=== PATIENT | male | born 1935 | race Caucasian/White ===

== ENCOUNTER 2016-09-02 11:19 | Outpatient (CLI) | payer MEDICARE, MEDICAID ==
[~2016-09-02] VITALS: Ht 170.2 cm; Wt 107.6 kg
[~2016-09-02 11:19] MED LIST: ALFU10TA11 PO; ASCO500C14 PO; ASPI325T32 PO; ATEN1TAB3 PO; ATOR20TA66 PO; CALC-656 PO; CETI10TA17 PO; CHOL200018 PO; COPP2TAB PO; DEXL60CA5 PO; DILT360T11 PO; GLIM2TAB PO; HYDR-34 PO; LINA5TAB PO; MTF500T PO; NIAC-4 PO; POTA99TA15 PO; VITA1TAB PO; VITA80006 PO; ZINC30CA PO
[2016-09-02 11:32] VITALS: BP 141/70
[2016-09-02] MEDS ORDERED: OMEP1CAP9 PO (12:05)
[2016-09-02] MEDS ORDERED: LEVO1CAP11 PO (12:05)
[2016-09-02] MEDS ORDERED: GINK120C PO (12:05)
[2016-09-02] MEDS ORDERED: GARL200T PO (12:05)
[2016-09-02] MEDS ORDERED: METF750T2 PO (12:05)
[2016-09-02] MEDS ORDERED: GLUC-113 PO (12:05)
[2016-09-02] MEDS ORDERED: VITA400T9 PO (12:05)
[2016-09-02] MEDS ORDERED: MILK200C4 PO (12:05)
[2016-09-02] MEDS ORDERED: HYDR25TA4 PO (12:05)
[2016-09-02] MEDS ORDERED: MAGN400T39 PO (12:05)
[2016-09-02] MEDS ORDERED: LACT1CAP8 PO (12:05)
[2016-09-02] MEDS ORDERED: FLAX100031 PO (12:05)
[2016-09-02] MEDS ORDERED: [UNRECOGNIZED DRUG - CODE] PO (12:05)
[2016-09-02] MEDS ORDERED: CALC-654 PO (12:05)
[2016-09-02] MEDS ORDERED: ASPI-999 PO (12:08)
[2016-09-02] MEDS ORDERED: [UNRECOGNIZED DRUG - OTHER] PO (12:08)
[2016-09-02] MEDS ORDERED: MELA1TAB15 PO (12:08)
[2016-09-02] MEDS ORDERED: RUTI500T PO (12:08)
[2016-09-02] MEDS ORDERED: FERR160T5 PO (12:08)
[2016-09-16] MEDS ORDERED: GLIM2TAB PO (10:11)
[2016-09-16] MEDS ORDERED: ATEN1TAB3 PO (10:11)
[2016-09-16] MEDS ORDERED: LINA5TAB PO (10:11)
[2016-09-16] MEDS ORDERED: ALFU10TA11 PO (10:11)
[2016-09-16] MEDS ORDERED: DILT360C19 PO (10:11)
[2016-09-16] MEDS ORDERED: FERR-74 PO (10:11)
[2016-09-16] MEDS ORDERED: ATOR20TA66 PO (10:11)
[2016-09-17] MEDS ORDERED: CIPR-225 PO (11:17)
== END 2016-09-02 11:55 | disposition home or self-care (01) ==
LOC: PREOP 11:19
PROVIDERS: ATTEND Urology
DX: Z01.818 Encounter for other preprocedural examination (principal); Z11.2 Encounter for screening for other bacterial diseases; N40.0 Benign prostatic hyperplasia without lower urinary tract symptoms
CPT/HCPCS: 87081

== ENCOUNTER 2016-09-04 06:35 | Day surgery (SDC) | payer MEDICARE, MEDICAID ==
[~2016-09-04] VITALS: Ht 170.2 cm; Wt 107.6 kg
[~2016-09-04 06:35] MED LIST changes: +ASPI-999 PO; +CALC-654 PO; +FERR160T5 PO; +FLAX100031 PO; +GARL200T PO; +GINK120C PO; +GLUC-113 PO; +HYDR25TA4 PO; +LACT1CAP8 PO; +LEVO1CAP11 PO; +MAGN400T39 PO; +MELA1TAB15 PO; +METF750T2 PO; +MILK200C4 PO; +OMEP1CAP9 PO; +RUTI500T PO; +VITA400T9 PO; +[UNRECOGNIZED DRUG - CODE] PO; +[UNRECOGNIZED DRUG - OTHER] PO
--- NOTE | 2016-09-04 07:09 | Progress Note-Pre Operative ---
Pre-Operative Progress Note H&P Reviewed The H&P was reviewed, patient examined and no changes noted. 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
[2016-09-04 07:15] VITALS: BP 143/78
[2016-09-04] MEDS ORDERED: cefTRIAXone 1 GM (ROCEPHIN) VIAL ONE (07:47)
[2016-09-04] MEDS ORDERED: NORMAL SALINE (BAXTER MINI) 50 ML IV ONE (07:47)
[2016-09-04] MEDS ORDERED: MIDAZOLAM 10 MG/2 ML (VERSED) VIAL ONE (08:11)
[2016-09-04] MEDS ORDERED: fentaNYL INJECTION 100 MCG/2 ML AMP ONE (08:12)
[2016-09-04] MEDS ORDERED: cefTRIAXone 1 GM/NS 50 ML IVPB IV ONE ×2 (08:15)
[2016-09-04] MEDS: LACTATED RINGERS 1,000 ML IV PRN ×2 (08:23→08:49)
[2016-09-04 08:35] LABS: BASOPHILS % (AUTO) 0 % (0-10); EOSINOPHILS # (AUTO) 0.1 10^3/uL (0.0-0.3); EOSINOPHILS % (AUTO) 1 % (0-10); LYMPHOCYTES # (AUTO) 1.7 X 10^3 (1.0-4.0); LYMPHOCYTES % (AUTO) 19 % (12-44); MEAN CORPUSCULAR HEMOGLOBIN 31 PG (25-34); MEAN CORPUSCULAR HGB CONC 34 G/DL (32-36); MEAN CORPUSCULAR VOLUME 92 FL (80-99); MEAN PLATELET VOLUME 10.8 FL (7.4-10.4); MONOCYTES # (AUTO) 0.7 X 10^3 (0.0-1.0); MONOCYTES % (AUTO) 8 % (0-12); NEUTROPHILS # (AUTO) 6.3 X 10^3 (1.8-7.8); NEUTROPHILS % (AUTO) 72 % (42-75); PLATELET COUNT 218 10^3/uL (130-400); RED BLOOD COUNT 4.38 10^6/uL (4.35-5.85); RED CELL DISTRIBUTION WIDTH 12.6 % (10.0-14.5); WHITE BLOOD COUNT 8.8 10^3/uL (4.3-11.0)
[2016-09-04] MEDS ORDERED: HYDROmorphone (DILAUDID) 2 MG/ML VIAL ONE (09:18)
[2016-09-04] MEDS ORDERED: morphine INJ 10 MG/ML 1ML (SYR OR VIAL) ONE (09:18)
[2016-09-04] MEDS ORDERED: ONDANSETRON 4 MG/2 ML (SDV) Z0FRAN ONE (09:18)
--- NOTE | 2016-09-04 10:06 | Progress Note-Post Operative ---
Post-Operative Progess Note Pre-Operative Diagnosis BPH with prostatism and retention Post-Operative Diagnosis same Post-Op Procedure Note Date of Procedure: Sep 04, 2016 Name of Procedure: TURP Anesthesia Type spinal Estimated blood loss (mL): 100cc Specimen(s) collected prostate chips MARTHA CORDERO MD Sep 04, 2016 10:05 am
[2016-09-04] MEDS ORDERED: BELLADONNA ALK/OPIUM (B & O) 30 MG SUPP PR PRN (10:15)
[2016-09-04] MEDS ORDERED: MILK OF MAGNESIA 400 MG/5 ML 30 ML UDC PO PRN (10:15)
[2016-09-04 11:00] VITALS: BP 100/67
[2016-09-04] MEDS ORDERED: proPOfol 200 MG/20 ML (DIPRIVAN) VIAL IV ONE (11:25)
[2016-09-04] MEDS: LACTATED RINGERS 1,000 ML IV SCH ×4 (12:38→20:35)
[2016-09-04 13:00] VITALS: BP 134/79
[2016-09-04] MEDS ORDERED: diphenhydrAMINE 50 MG/ML INJ (BENADRYL) IVP PRN (14:15)
[2016-09-04] MEDS: HYDROcodone/APAP 10 MG/325 MG (LORTAB) TAB PO PRN (16:06)
[2016-09-04 16:40] VITALS: BP 167/79
[2016-09-04] MEDS: GLIMEPIRIDE 2 MG (AMARYL) TAB PO SCH (17:46)
[2016-09-04] MEDS: metFORMIN XR 500 MG (GLUCOPHAGE XR) TAB PO SCH (17:46)
[2016-09-04 20:00] VITALS: BP 140/65
[2016-09-04] MEDS: DOCUSATE SODIUM 100 MG (COLACE) CAP PO SCH (20:35)
[2016-09-04] MEDS ORDERED: NON-FORMULARY MEDICATION 1 EA EA (Metformin HCl (Metformin HCl ER) 750 MG) PO SCH (21:00)
[2016-09-04] MEDS ORDERED: NON-FORMULARY MEDICATION 1 EA EA (Potassium Gluconate (Potassium) 99 MG) PO SCH (21:00)
[2016-09-04] MEDS ORDERED: ATORVASTATIN 20 MG (LIPITOR) TABLET PO SCH (21:00)
[2016-09-05] VITALS: BP 161/89
[2016-09-05] MEDS: HYDROcodone/APAP 10 MG/325 MG (LORTAB) TAB PO PRN (00:53)
[2016-09-05 04:00] VITALS: BP 172/80
[2016-09-05] MEDS: LACTATED RINGERS 1,000 ML IV SCH ×2 (04:28→10:06)
[2016-09-05 05:00] VITALS: BP 171/84
[2016-09-05] MEDS: GLIMEPIRIDE 2 MG (AMARYL) TAB PO SCH ×2 (06:27→17:02)
[2016-09-05] MEDS: metFORMIN XR 500 MG (GLUCOPHAGE XR) TAB PO SCH ×2 (06:28→17:04)
[2016-09-05] MEDS ORDERED: sitaGLIPtin 50 MG (JANUVIA) TAB PO SCH (07:00)
[2016-09-05] MEDS ORDERED: PANTOPRAZOLE 20 MG TABLET (PROTONIX) PO SCH (07:00)
--- NOTE | 2016-09-05 07:29 | OPERATIVE REPORT ---
PROCEDURE PHYSICIAN: MARTHA CORDERO DATE OF PROCEDURE: 09/04/2016 PREOPERATIVE DIAGNOSIS: BPH with prostatism and retention. POSTOPERATIVE DIAGNOSIS: BPH with prostatism and retention. OPERATION: Transurethral resection of the prostate. SURGEON: Dr. Cordero. ANESTHESIA: Spinal. COMPLICATIONS: None. PROCEDURE: Under satisfactory spinal anesthesia, the patient in lithotomy position, the genitalia were prepped and draped in the usual sterile fashion. The urethra was dilated to [place] sound to number 30 Albanian easily. A 27-Albanian Shipey resectoscope was introduced in the bladder. Resection started at the roof from 11 to 1 o'clock and then carried down both lateral lobes and finally the apical and the floor of the prostate. Resection was very adequate and hemostasis was very satisfactory. The prostatic calculi and capsule was visualized at many points. The prostatic chips were evacuated and cystoscopy confirmed intact ureteric orifices, VERU and sphincter with good efflux. The resectoscope was removed and a 22-Albanian, three-way 30 mL balloon catheter was inflated in the bladder. The balloon inflated to 40 mL, connected to continuous bladder irrigation and on traction, the return of which was tinged. Estimated blood loss 100 mL, none of which was replaced. The patient tolerated the procedure and anesthesia well and was sent to recovery room in stable condition. Job ID: [id number] Dictated Date: 09/04/2016 10:24:16 White Metal Corrosion Proofer Date: 09/05/2016 07:23:17 / olga
[2016-09-05] MEDS: DOCUSATE SODIUM 100 MG (COLACE) CAP PO SCH (07:50)
[2016-09-05 08:00] VITALS: BP 163/89
[2016-09-05] MEDS ORDERED: OMEPRAZOLE PO SCH (09:00)
[2016-09-05] MEDS ORDERED: HYDROCHLOROTHIAZIDE 25 MG (HCTZ) TAB PO SCH (09:00)
[2016-09-05] MEDS ORDERED: SODIUM BICARBONATE PO SCH (09:00)
[2016-09-05] MEDS ORDERED: [UNRECOGNIZED DRUG - OTHER] PO SCH (09:00)
[2016-09-05] MEDS ORDERED: LINAGLIPTIN 5 MG PO SCH (09:00)
[2016-09-05] MEDS ORDERED: LEVOFLOXACIN 500 MG/100 ML IV 100 ML IV NR (10:15)
--- NOTE | 2016-09-05 11:51 | Progress Note-Urology ---
Progress Note-Urology Progress Notes/Assess & Plan Progress/Assessment & Plan Doing well, VSS, no complaints, urine clear and yellow, plan per orders Final Diagnosis BPH with prostatism and retention, post TURP MARTHA CORDERO MD Sep 05, 2016 11:51 am
[2016-09-05 12:30] VITALS: BP 173/89
--- NOTE | 2016-09-05 14:19 | Anesthesia-Regional Post-Op ---
Regional Patient Condition Mental Status: Alert, Oriented x3 Circulation: Same as Pre-Op Headache: Absent Sensation: Full Recovery Motor Block: Absent Post Op Complications Complications None Follow Up Care/Instructions Patient Instructions None needed. Anesthesia/Patient Condition Patient is doing well, no complaints, stable vital signs, no apparent adverse anesthesia problems. No complications reported per nursing. RANCHO CULLEN CRNA Sep 05, 2016 14:19
[2016-09-05 16:13] VITALS: BP 167/87
[2016-09-05] MEDS ORDERED: LEVO500T2 PO (17:13)
[2016-09-16] MEDS ORDERED: ALFU10TA11 PO (10:11)
[2016-09-16] MEDS ORDERED: FERR-74 PO (10:11)
[2016-09-16] MEDS ORDERED: GLIM2TAB PO (10:11)
[2016-09-16] MEDS ORDERED: ATEN1TAB3 PO (10:11)
[2016-09-16] MEDS ORDERED: ATOR20TA66 PO (10:11)
[2016-09-16] MEDS ORDERED: DILT360C19 PO (10:11)
[2016-09-16] MEDS ORDERED: LINA5TAB PO (10:11)
[2016-09-17] MEDS ORDERED: CIPR-225 PO (11:17)
== END 2016-09-05 18:30 | disposition home or self-care (01) ==
LOC: SDC 06:35 → 4TH 12:57 → SDC 09-05 18:30
PROVIDERS: ATTEND Urology
DX: N40.1 Benign prostatic hyperplasia with lower urinary tract symptoms (principal); R33.8 Other retention of urine; E11.9 Type 2 diabetes mellitus without complications
CPT/HCPCS: 36415; 82962; 85025; 86850; 86900; 86901; 94664

== ENCOUNTER 2016-12-06 10:06 | Outpatient (CLI) | payer MEDICARE, OTHER ==
[~2016-12-06] VITALS: Ht 172.7 cm; Wt 107.6 kg
[~2016-12-06 10:06] MED LIST changes: +CIPR-225 PO; +DILT360C19 PO; +FERR-74 PO; +LEVO500T2 PO
[2016-12-06] MEDS ORDERED: OMEP1CAP9 PO (10:22)
[2016-12-06] MEDS ORDERED: HYDR25TA4 PO (10:22)
[2016-12-06] MEDS ORDERED: LEVO1CAP11 PO (10:22)
[2016-12-06 10:24] VITALS: BP 142/81
== END 2016-12-06 11:36 | disposition home or self-care (01) ==
LOC: PREOP 10:06
PROVIDERS: ATTEND Urology
DX: Z01.818 Encounter for other preprocedural examination (principal); Z11.2 Encounter for screening for other bacterial diseases; N32.0 Bladder-neck obstruction
CPT/HCPCS: 87081

== ENCOUNTER 2016-12-11 06:25 | Day surgery (SDC) | payer MEDICARE, OTHER ==
[~2016-12-11] VITALS: Ht 172.7 cm; Wt 107.6 kg
[2016-12-11 07:00] VITALS: BP 150/105
[2016-12-11] MEDS ORDERED: cefTRIAXone 1 GM (ROCEPHIN) VIAL ONE (07:05)
[2016-12-11] MEDS ORDERED: NS (IVPB) 50 ML ONE (07:05)
--- NOTE | 2016-12-11 07:09 | Progress Note-Pre Operative ---
Pre-Operative Progress Note H&P Reviewed The H&P was reviewed, patient examined and no changes noted. Date H&P Reviewed: Dec 11, 2016 Time H&P Reviewed: 07:08 Pre-Operative Diagnosis: SEVERE BNC MARTHA CORDERO MD Dec 11, 2016 7:09 am
--- NOTE | 2016-12-11 07:09 | Progress Note-Post Operative ---
Post-Operative Progess Note Surgeon (s)/Supervisor Engraving (s) Surgeon MARTHA CORDERO MD Supervisor Engraving: N/A Pre-Operative Diagnosis SEVERE BNC Post-Operative Diagnosis SAME WITH SCAR TISSUE OF PROSTATE FOSSA AND APICES Post-Op Procedure Note Date of Procedure: Dec 11, 2016 Name of Procedure Performed: CYSTO, TUR BNC AND PROSTATIC SCAR TISSUE Description of the Procedure: PER DICTATION Findings of the Procedure PER DICTATION Anesthesia Type GENERAL Estimated blood loss (mL): NONE Specimen(s) collected/removed PROSTATE, BNC, SCARRED PROSTATIC TISSUE MARTHA CORDERO MD Dec 11, 2016 7:09 am
--- NOTE | 2016-12-11 07:11 | Discharge Inst-Urology ---
Discharge Inst-Urology Discharge Medications New, Converted, or Re-newed RX: RX on Chart Patient Instructions/Follow Up Plan Once done with CBI, plug inlet of sanches and discharge with sanches and leg bag day time and large bag night time with instructions Office Friday 9am to DC sanches and 2 weeks later to see me Increase oral fluids for 48 hours and then as needed. Diet and Activity as tolerated. If questions or concerns contact your physician Or seek help at emergency department. MARTHA CORDERO MD Dec 11, 2016 7:11 am
[2016-12-11] MEDS ORDERED: CATHETER FLUSH 10 ML SYR IV PRN (07:45)
[2016-12-11] MEDS ORDERED: cefTRIAXone 1 GM/NS 50 ML IVPB IV ONE ×2 (07:45)
[2016-12-11] MEDS: LACTATED RINGERS 1,000 ML IV PRN ×2 (08:16→09:26)
[2016-12-11] MEDS ORDERED: ATEN25TA PO (08:23)
[2016-12-11] MEDS ORDERED: ASPI-586 PO (08:28)
[2016-12-11] MEDS ORDERED: LACTATED RINGERS 1,000 ML IV ONE ×2 (08:29→09:44)
[2016-12-11] MEDS ORDERED: SEVOFLURANE (ULTANE) 15 ML INHAL SOLN ONE ×2 (08:29→09:54)
[2016-12-11] MEDS ORDERED: fentaNYL INJECTION 100 MCG/2 ML AMP ONE (08:29)
[2016-12-11] MEDS ORDERED: LIDOCAINE PF 2% 10 ML (XYLOCAINE) AMP ONE (08:29)
[2016-12-11] MEDS ORDERED: ONDANSETRON 4 MG/2 ML (SDV) Z0FRAN ONE (08:29)
[2016-12-11] MEDS ORDERED: ROCURONIUM 50 MG/5 ML (ZEMURON) VIAL IV ONE (08:29)
[2016-12-11] MEDS ORDERED: proPOfol 200 MG/20 ML (DIPRIVAN) VIAL IV ONE (08:29)
[2016-12-11] MEDS ORDERED: NEOSTIGMINE (BLOXIVERZ ) 1 MG/1ML 10 ML VIAL ONE (09:47)
[2016-12-11] MEDS ORDERED: GLYCOPYRROLATE 0.2 MG/ML (ROBINUL) 2 ML VIAL ONE (09:47)
[2016-12-11] MEDS ORDERED: ONDANSETRON 4 MG/2 ML (SDV) Z0FRAN IVP PRN (10:15)
[2016-12-11] MEDS ORDERED: fentaNYL INJECTION 100 MCG/2 ML AMP IVP PRN (10:15)
[2016-12-11] MEDS ORDERED: morphine INJ 10 MG/ML 1ML (SYR OR VIAL) ONE (10:25)
[2016-12-11] MEDS: morphine INJ 10 MG/ML 1ML (SYR OR VIAL) IVP PRN ×3 (10:30→10:40)
[2016-12-11] MEDS ORDERED: CIPR-225 PO (10:33)
[2016-12-11] MEDS ORDERED: HYDR-3874 PO (10:33)
[2016-12-11] MEDS ORDERED: PHEN-640 PO (10:33)
[2016-12-11 11:10] VITALS: BP 168/81
[2016-12-11 11:40] VITALS: BP 168/95
[2016-12-11 12:10] VITALS: BP 167/84
--- NOTE | 2016-12-12 14:48 | OPERATIVE REPORT ---
DATE OF SERVICE: 12/11/2016 PREOPERATIVE DIAGNOSES: Submeatal stricture and bladder neck contracture. POSTOPERATIVE DIAGNOSES: 1. Submeatal stricture and bladder neck contracture. 2. Extensive scarring of the prostatic floor and apical tissue with obstruction. OPERATIONS PERFORMED: 1. Cystoscopy. 2. Transurethral resection of bladder neck contracture, prostate and prostatic scare tissue of apical and floor tissue. SURGEON: Feroz Cordero MD. ANESTHESIA: General. COMPLICATIONS: None. PROCEDURE: Under satisfactory general anesthesia with the patient in lithotomy position the genitalia was prepped and draped in the usual sterile fashion. A 23-Palauan cystoscope was introduced under vision. Again felt the sub___ stricture which responded to the scope. Each urethra was normal with no scar. The prostate again revealed the prostatic tissue, apical and floor, scarred down and connected causing obstruction. Up on top bladder neck contractures. I removed the cystoscope and inserted the resectoscope, 25 Palauan. I went ahead and resected the bladder neck contracture, the scar, prostatic and apical tissues and some more of the prostate tissue to completely open the fossa and the bladder neck. These were was cauterized and hemostasis was complete. Cystoscopy confirmed intact ureteric orifices, veru and sphincter with good reflex. The resectoscope was removed and a 20-Palauan 3-way 30 cc balloon catheter was inserted into the bladder, connected to continuous bladder irrigation the return of which was clear. The balloon was inflated to 20 cc. ESTIMATED BLOOD LOSS: Negligible none of which was replaced. The patient was tolerated the procedure and anesthesia well. He was sent to the recovery room in stable condition. Job ID: [id number] DocumentID: [id number] Dictated Date: 12/11/2016 10:13:56 Wet Crown Blocking Operator Date: 12/12/2016 00:04:08 Dictated By: FEROZ CORDERO MD [facility]
== END 2016-12-11 13:10 | disposition home or self-care (01) ==
LOC: SDC 06:25
PROVIDERS: ATTEND Urology
DX: N32.0 Bladder-neck obstruction (principal); E11.9 Type 2 diabetes mellitus without complications
CPT/HCPCS: 82962; 88305; 88312

== ENCOUNTER → 2018-07-22 | Outpatient (CLI) | payer MEDICARE, OTHER ==
[~2018-07-22] MED LIST changes: +ASPI-586 PO; +ATEN25TA PO; +BETA10003 PO; -FERR-74 PO; +FERR325T18 PO; +HYDR-3870 PO; +PHEN-640 PO; +RT-ALBUTEROL SULF 2.5 MG/3 ML PRE-MIX VIAL INH ONE; +RT-ALBUTEROL SULF 2.5 MG/3 ML PRE-MIX VIAL ONE; -[UNRECOGNIZED DRUG - CODE] PO
--- NOTE | 2018-07-22 12:50 | Diagnostic Imaging Report ---
PROCEDURE: CT chest without contrast. TECHNIQUE: Multiple contiguous axial images were obtained through the chest without the use of intravenous contrast. INDICATION: Wheezing. COMPARISON: No prior studies are available for comparison. FINDINGS: No axillary lymphadenopathy is seen. Hilar and mediastinal evaluation is limited without intravenous contrast. There is a mildly prominent lymph node in the paratracheal location measuring 2.4 x 1.1 cm, indeterminate. There are calcified lymph nodes in the subcarinal region as well as thor bilaterally, consistent with prior granulomatous exposure. Coronary arterial calcifications are present. No pericardial or pleural fluid is seen. Central airways are patent. No parenchymal infiltrate, nodule, or mass is detected. Upper abdomen is unremarkable. IMPRESSION: Findings consistent with prior granulomatous exposure. Study is otherwise unremarkable. Dictated by: Dictated on workstation # [id number]
== END ==
LOC: RAD 11:25
PROVIDERS: ATTEND Nurse Practitioner Family
DX: F39 Unspecified mood [affective] disorder (principal); E66.9 Obesity, unspecified; R06.2 Wheezing; R06.83 Snoring; Z78.9 Other specified health status; Z87.891 Personal history of nicotine dependence
CPT/HCPCS: 71250; 94060; 94726; 94729

== ENCOUNTER → 2019-05-18 | Outpatient (CLI) | payer MEDICARE, OTHER ==
[~2019-05-18] MED LIST changes: -RT-ALBUTEROL SULF 2.5 MG/3 ML PRE-MIX VIAL INH ONE; -RT-ALBUTEROL SULF 2.5 MG/3 ML PRE-MIX VIAL ONE
--- NOTE | 2019-05-18 16:56 | Diagnostic Imaging Report ---
EXAMINATION: Right hip at 02:46 p.m. INDICATION: Hip pain. FINDINGS: AP and lateral views were obtained. There are no prior studies available for comparison. There is no fracture, dislocation, or acute bony abnormality evident. There is moderate degenerative disease involving the hip joint and the right sacroiliac joint. There is also a smooth small 7 mm calcific density adjacent to the superior margin of the greater trochanter of the right femur. This may be a sequela of prior trauma. The soft tissues are otherwise unremarkable. IMPRESSION: There is no evidence for an acute bony abnormality. Dictated by: Dictated on workstation # [id number]
== END ==
LOC: RAD 14:26
PROVIDERS: ATTEND Family Medicine
DX: M25.551 Pain in right hip (principal)
CPT/HCPCS: 73502

== ENCOUNTER → 2019-06-07 | Outpatient (CLI) | payer MEDICARE, OTHER ==
--- NOTE | 2019-06-07 15:44 | Diagnostic Imaging Report ---
PROCEDURE: MRI lumbar spine. TECHNIQUE: Multiplanar, multisequence MRI of the lumbar spine was performed without contrast. INDICATION: Low back pain and right hip and leg pain. Fall two years ago. COMPARISON: None. FINDINGS: There is compression deformity of the L1 vertebral body with approximately 50% height loss and linear hyperintense signal suggestive of an acute fracture. There is minimal retropulsion into the spinal canal measuring 3 mm. There is mild multilevel disc height loss and vertebral body height loss. The conus terminates in appropriate position. Small simple-appearing cysts are seen at the superior right kidney and the inferior left kidney. The soft tissues about the lumbar spine are otherwise unremarkable. T11-T12: No spinal canal or foraminal stenosis. T12-L1: Mild diffuse disc bulge and facet arthropathy. No spinal canal stenosis. No foraminal stenosis. L1-L2: Diffuse disc bulge and mild facet arthropathy. No spinal canal stenosis. Zlus-xh-hbbxghaf bilateral foraminal stenosis. L2-L3: Diffuse disc bulge and facet arthropathy. No spinal canal stenosis. Mild bilateral foraminal narrowing. L3-L4: Diffuse disc bulge and facet arthropathy with ligamentous infolding. Moderate spinal canal stenosis with effacement of the lateral recesses. Moderate bilateral foraminal stenosis. L4-L5: Diffuse disc bulge, facet arthropathy, and ligamentous infolding. Effacement of the lateral recesses. 5 mm synovial cyst at the left facet posteriorly. Severe right and tqnhbuzw-xw-nrzaoi left foraminal stenosis. L5-S1: Diffuse disc bulge and facet arthropathy. No spinal canal stenosis. Severe right and moderate left foraminal stenosis. The S1 vertebral body appears to have a butterfly configuration, split vertically. There is increased fat in the sacral canal, suggestive of epidural lipomatosis. IMPRESSION: 1. Acute compression fracture of the L1 vertebral body with 50% height loss and mild retropulsion. 2. Multilevel degenerative changes throughout the lumbar spine as described above. This includes spinal canal stenosis at L3-L4 and L4-L5 as well as multilevel foraminal stenosis. 3. 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 4. Increased fat in the sacral spinal canal, may represent epidural lipomatosis. Dictated by: Dictated on workstation # [id number]
--- NOTE | 2019-06-07 16:49 | Diagnostic Imaging Report ---
PROCEDURE: MRI right lower extremity without contrast. TECHNIQUE: Multiplanar, multisequence non contrast-enhanced MRI of the right lower extremity was accomplished. INDICATION: Right hip pain. FINDINGS: Femoral heads are in normal articulation with the acetabuli bilaterally. Marrow signal is normal throughout the acetabuli as well as the pubic rami, femoral heads and neck and trochanters. There is loss of articulating joint space along the femoral head and acetabulum on the right. There is subcortical cystic change. There is cystic change along the superolateral labrum as well suggesting probable chronic labral tear. There are mild hypertrophic bony changes. No evidence of osteonecrosis. No cortical bony fractures are demonstrated. The SI joints appear symmetrical without significant edema. No pelvic masses are demonstrated. There is noted some edema about the ischial tuberosity on the right. IMPRESSION: 1. Rather advanced degenerative changes noted at the right hip. Moderate degenerative change in the left. 2. No evidence of fractures or osteonecrosis. 3. Findings consistent with some tendinopathy along the hamstring attachment to the ischial tuberosity on the right. Dictated by: Dictated on workstation # [id number]
== END ==
LOC: RAD 14:43
PROVIDERS: ATTEND Family Medicine
DX: M16.0 Bilateral primary osteoarthritis of hip (principal); M47.816 Spondylosis without myelopathy or radiculopathy, lumbar region; M48.061 Spinal stenosis, lumbar region without neurogenic claudication; M51.27 Other intervertebral disc displacement, lumbosacral region; M48.56XA Collapsed vertebra, not elsewhere classified, lumbar region, initial encounter for fracture
CPT/HCPCS: 72148

== ENCOUNTER → 2020-01-26 | Outpatient (CLI) | payer MEDICARE, OTHER ==
[~2020-01-26] VITALS: Ht 173 cm; Wt 103.0 kg
[~2020-01-26] MED LIST changes: +ALFU10TA12 PO; +GLIM2TAB4 PO; -METF750T2 PO; +METF750T45 PO; +NITROGLYCERIN 0.4 MG SL TABS BTL 25'S SL ONE; +REGADENOSON 0.4 MG/5 ML SYR (LEXISCAN) IV ONE
[2020-01-26] MEDS: CATHETER FLUSH 10 ML SYR IV PRN ×2 (11:27→12:00)
[2020-01-26 12:03] VITALS: BP 162/105
--- NOTE | 2020-01-26 16:51 | Cardiology Stress Test Report ---
Stress Test Report Date of Procedure/Referring: Date of Procedure: Jan 26, 2020 PCP Windy Mayberry MD Admitting Physician Karo Guerrero MD Indications: Chest pain Baseline Heart Rate: 80 Baseline Blood Pressure: Blood Pressure Systolic: 162 Blood Pressure Diastolic: 105 Baseline EKG: Baseline EKG: Normal sinus rhythm Summary: Patient received 0.4 mg Lexiscan for stress test, ECG, heart rate and blood pressure were monitored continuously. Resting and stress dose of radio tracer were injected, imaging was acquired and reviewed in short axis, horizontal long axis and vertical long axis views. Review of the images showed reversible ischemia involving the whole inferior wall, anteroapex, true apex. TID 1 SSS 15 SDS 9 EF 62% Conclusion: 1. Patient tolerated Lexiscan well 2. Reversible ischemia involving the whole inferior wall inferoapical and true apex 3. Normal left ventricular size and contractility, EF 62 percent WINDY MAYBERRY MD Jan 26, 2020 16:51
== END ==
LOC: CARD 10:11
PROVIDERS: ATTEND Internal Medicine Cardiovascular Disease
DX: I34.0 Nonrheumatic mitral (valve) insufficiency (principal); I11.9 Hypertensive heart disease without heart failure; E78.2 Mixed hyperlipidemia; E11.9 Type 2 diabetes mellitus without complications
CPT/HCPCS: 78452; 93017; 93306

== ENCOUNTER → 2020-02-07 | Outpatient (CLI) | payer MEDICARE, OTHER ==
[~2020-02-07] MED LIST changes: +CLOP75TA69 PO; +NF-METANX PO; -NITROGLYCERIN 0.4 MG SL TABS BTL 25'S SL ONE; -REGADENOSON 0.4 MG/5 ML SYR (LEXISCAN) IV ONE; +SITA100T12 PO
== END ==
LOC: LABNPT 06:45
PROVIDERS: ATTEND Internal Medicine Cardiovascular Disease
DX: Z01.818 Encounter for other preprocedural examination (principal); Z11.59 Encounter for screening for other viral diseases
CPT/HCPCS: 87635

== ENCOUNTER 2020-02-09 06:49 | Day surgery (SDC) | payer MEDICARE, OTHER ==
[2020-02-09] VITALS (11 sets, daily range): BP systolic 130–183; BP diastolic 75–89
[~2020-02-09] VITALS: Ht 173 cm; Wt 98.0 kg
[~2020-02-09 06:49] MED LIST changes: -CLOP75TA69 PO; -NF-METANX PO; -SITA100T12 PO
--- OUTSIDE RECORDS SUMMARY | 2020-02-09 06:57 | XMS REPORT | CCD ---
Author Author Gunnar Luther Organization Karo Guerrero MD, [facility] Address [address] [place] [address] Phone Care Team Providers Care Private Banker Name Role Phone PP Unavailable CCM Unavailable Summary Purpose Interface Exchange Insurance Providers Payer name Policy type / Coverage type Covered alliance party ID Effective Begin Date Effective End Date WPS Medicare Part B Medicare Part B [id number] Unknown Aet[employer] Medicare Part B AH [id number] Unknown Cigna Medicare Part B 80 [id number] Unknown Family history Sister Diagnosis Age At Onset Breast cancer Unknown Mother Diagnosis Age At Onset Thyroid Unknown Dementia Unknown Asthma Unknown Arthritis Unknown Father Diagnosis Age At Onset bone cancer Unknown Arthritis Unknown Cancer Unknown Son Diagnosis Age At Onset Thyroid Unknown Brother Diagnosis Age At Onset Prostate Cancer Unknown Cancer Unknown Social History Social History Element Codes Description Effective Dates Marital status Unknown W idowed 05/20/2017 Employment Unknown 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 05/20/[address]: 811657629 Never smoker 05/20/[address]: 466811159 Never drinks alcohol 05/20/2017 Allergies, Adverse Reactions, Alerts Substance Reaction Codes Entered Date Inactivated Date Status Penicillin Unknown 05/20/2017 No In active Date Active PENICILLINS Unknown 05/20/2017 No In active Date Active Past Medical History Illness Codes Condition Status Onset Date Resolved Date Essential (primary) hypertension ICD-9: 401.1 ICD-10: I10 Active 05/20/2017 Unknown Type 2 diabetes stevo itus with hyperglycemia ICD-9: 250.02 ICD-10: E11.65 Active 05/20/2017 Unknown Bitten or stung by n onvenomous insect and other nonvenomous arthropods, initial encounter ICD-9: 919.4 ICD-10: W57.XXXA Active 04/03/2018 Unknown Cellulitis of right lower limb ICD-9: 682.6 ICD-10: L03.115 Active 01/25/2019 Unknown Mixed hyperlipidemia ICD-9: 272.2 ICD-10: E78.2 Active 06/10/2017 Unknown Other acute sinusitis ICD-9: 461.8 ICD-10: J01.80 Active 10/15/2018 Unknown Other allergic rhinitis ICD-9: 477.8 ICD-10: J30.89 Active 04/27/2018 Unknown Encounter for immuni zation ICD-9: V04.81 ICD-10: Z23 Active 06/09/2017 Unknown Anemia, unspecified ICD- 9: 285.9 ICD-10: D64.9 Active 05/14/2018 Unknown Diplopia ICD-9: 368.2 ICD-10: H53.2 Active 05/14/2018 Unknown Benign paroxysmal ve rtigo, bilateral ICD-9: 386.11 ICD-10: H81.13 Active 04/27/2018 Unknown Cellulitis of right upper limb ICD-9: 682.3 ICD-10: L03.113 Active 04/03/2018 Unknown Other fatigue ICD-9: 780.79 ICD-10: R53.83 Active 04/03/2018 Unknown Other malaise ICD-9: 780.79 ICD-10: R53.81 Active 04/03/2018 Unknown Encounter for genera l adult medical examination with abnormal findings ICD-9: V70.0 ICD-10: Z00.01 Active 01/21/2018 Unknown Actinic keratosis ICD-9: 702.0 ICD-10: L57.0 Active 08/27/2017 Unknown Problems Condition Codes Effectiv e Dates Condition Status Essential (primary) hypertension ICD-9: 401.1 ICD-10: I10 05/20/2017 Active Type 2 diabetes stevo itus with hyperglycemia ICD-9: 250.02 ICD-10: E11.65 05/20/2017 Active Bitten or stung by n onvenomous insect and other nonvenomous arthropods, initial encounter ICD-9: 919.4 ICD-10: W57.XXXA 04/03/2018 Active Cellulitis of right lower limb ICD-9: 682.6 ICD-10: L03.115 01/25/2019 Active Mixed hyperlipidemia ICD-9: 272.2 ICD-10: E78.2 06/10/2017 Active Other acute sinusitis ICD-9: 461.8 ICD-10: J01.80 10/15/2018 Active Other allergic rhinitis ICD-9: 477.8 ICD-10: J30.89 04/27/2018 Active Encounter for immuni zation ICD-9: V04.81 ICD-10: Z23 06/09/2017 Active Anemia, unspecified ICD- 9: 285.9 ICD-10: D64.9 05/14/2018 Active Diplopia ICD-9: 368.2 ICD-10: H53.2 05/14/2018 Active Benign paroxysmal ve rtigo, bilateral ICD-9: 386.11 ICD-10: H81.13 04/27/2018 Active Cellulitis of right upper limb ICD-9: 682.3 ICD-10: L03.113 04/03/2018 Active Other fatigue ICD-9: 780.79 ICD-10: R53.83 04/03/2018 Active Other malaise ICD-9: 780.79 ICD-10: R53.81 04/03/2018 Active Encounter for genera l adult medical examination with abnormal findings ICD-9: V70.0 ICD-10: Z00.01 01/21/2018 Active Actinic keratosis ICD-9: 702.0 ICD-10: L57.0 08/27/2017 Active Medications Medication Codes Instruc tions Start Date Stop Date Sta s Fill Instructions mupirocin 2 % topica l ointment RxNorm: 103019 1 Application TOP BID 02/19/2019 No Stop Date Active doxycycline hyclate 100 mg capsule RxNorm: 5478913 1 Capsule(s) PO BID 02/19/2019 03/04/2019 Ac tive metformin ER 750 mg tablet,extended release 24 hr RxNorm: 767296 2 TABLET(S) PO DAILY 02/16/2019 08/14/2019 Ac tive doxycycline hyclate 100 mg capsule RxNorm: 7451019 1 Capsule(s) PO BID 02/04/2019 02/07/2019 In active extending out to 14 days doxycycline hyclate 100 mg capsule RxNorm: 2821453 1 Capsule(s) PO BID 01/25/2019 02/03/2019 In active glimepiride 2 mg tablet RxNorm: 093088 TAKE 1 TABLET BY MOUTH TWICE DAILY FOR D IABETES 01/07/2019 01/01/2020 Active diltiazem CD 360 mg capsule,extended release 24 hr RxNorm: 643482 1 CAPSULE(S) PO QHS 12/29/2018 12/23/2019 Ac tive atenolol 50 mg-chlor thalidone 25 mg tablet RxNorm: 888404 1 TABLET(S) PO DAILY 12/17/2018 12/11/2019 Ac tive PLEASE SEND REFILL REQUESTS ELECTRONICAL LY metformin ER 750 mg tablet,extended release 24 hr RxNorm: 883081 2 TABLET(S) PO DAILY 12/17/2018 06/14/2019 Ac tive metformin ER 750 mg tablet,extended release 24 hr RxNorm: 942388 2 TABLET(S) PO DAILY 11/13/2018 12/16/2018 Inactive Tradjenta 5 mg tablet RxNorm: 9994170 TAKE 1 TABLET BY MOUTH DAILY 10/16/2018 03/14/2019 Ac tive Kenalog 40 mg/mL benitez pension for injection RxNorm: 7830359 1 Milliliter(s) Inj 10/15/2018 10/15/2018 In active Tradjenta 5 mg tablet RxNorm: 8327125 TAKE 1 TABLET BY MOUTH DAILY 09/18/2018 02/14/2019 In active metformin ER 750 mg tablet,extended release 24 hr RxNorm: 208984 2 TABLET(S) PO DAILY 07/13/2018 11/09/2018 Inactive Tradjenta 5 mg tablet RxNorm: 9741805 TAKE 1 TABLET BY MOUTH DAILY 07/02/2018 09/17/2018 In active One Touch Test strips RxNorm: 1 Miscellaneous BID 06/29/2018 07/28/2018 Inactive Zyrtec 10 mg tablet RxNorm: 8597652 1 Tablet(s) PO daily 04/27/2018 05/26/2018 Inactive doxycycline hyclate 100 mg capsule RxNorm: 9068369 1 Capsule(s) PO BID 04/03/2018 04/12/2018 In active meclizine 25 mg tablet RxNorm: 151591 1 Tablet(s) PO TID as needed Dizziness 04/03/2018 04/07/2018 In active metformin ER 750 mg tablet,extended release 24 hr RxNorm: 124873 2 TABLET(S) PO DAILY 02/03/2018 06/02/2018 Inactive glimepiride 2 mg tablet RxNorm: 830034 TAKE 1 TABLET BY MOUTH TWICE DAILY FOR D IABETES 01/13/2018 04/07/2019 Active glimepiride 2 mg tablet RxNorm: 288399 TAKE 1 TABLET BY MOUTH TWICE DAILY FOR D IABETES 01/11/2018 01/05/2019 Inactive diltiazem CD 360 mg capsule,extended release 24 hr RxNorm: 329969 1 CAPSULE(S) PO QHS 01/02/2018 12/27/2018 Inactive atenolol 50 mg-chlor thalidone 25 mg tablet RxNorm: 647376 1 Tablet(s) PO daily 12/18/2017 12/12/2018 In active PLEASE SEND REFILL REQUESTS ELECTRONICAL LY Tradjenta 5 mg tablet RxNorm: 8652724 TAKE 1 TABLET BY MOUTH DAILY 12/15/2017 05/13/2018 In active metformin ER 750 mg tablet,extended release 24 hr RxNorm: 321639 2 TABLET(S) PO DAILY 11/05/2017 12/16/2018 Inactive metformin ER 750 mg tablet,extended release 24 hr RxNorm: 314826 2 TABLET(S) PO DAILY 11/03/2017 02/02/2018 Inactive atorvastatin 20 mg t ablet RxNorm: 970685 TAKE 1 TABLET BY MOUT H EVERY NIGHT AT BEDTIME FOR CHOLESTEROL 08/28/2017 08/22/2018 Inactive Zithromax Z-Maury 250 mg tablet RxNorm: 795172 1 Tablet(s) PO UD 08/15/2017 04/13/2018 Inactive Tamiflu 75 mg capsule RxNorm: 359265 1 Capsule(s) PO BID 08/15/2017 08/14/2017 Inactive Tamiflu 75 mg capsule RxNorm: 471962 1 Capsule(s) PO BID 08/15/2017 08/19/2017 Inactive Tradjenta 5 mg tablet RxNorm: 2748258 TAKE 1 TABLET BY MOUTH DAILY 08/12/2017 12/09/2017 In active metformin ER 750 mg tablet,extended release 24 hr RxNorm: 449345 TAKE 2 TABLET BY MOUT H ONCE A DAY DIRECTED 08/08/2017 12/16/2018 Inactive SAVINGS FOR NON-COVERED MED ICATIONS Claims: BIN: [id number], PCN: [id number], GROUP: [id number], Patient ID: [id number] Phone; Questions: [facility] [phone] metformin ER 750 mg tablet,extended release 24 hr RxNorm: 353500 2 Tablet(s) PO daily 08/07/2017 08/06/2017 Inactive metformin ER 750 mg tablet,extended release 24 hr RxNorm: 531346 2 Tablet(s) PO daily 08/07/2017 11/02/2017 Inactive glimepiride 2 mg tablet RxNorm: 337620 TAKE 1 TABLET BY MOUTH TWICE DAILY FOR D IABETES 07/18/2017 01/10/2018 Inactive diltiazem CD 360 mg capsule,extended release 24 hr RxNorm: 877966 1 Capsule(s) PO QHS 07/03/2017 12/29/2017 Inactive One Touch Test strips RxNorm: 1 Miscellaneous daily 05/30/2017 06/28/2017 Inactive One Touch Test strips RxNorm: 1 Miscellaneous daily 05/30/2017 05/29/2017 Inactive iron gluconate-B cmp lx-potassium iodide-minerals oral RxNorm: 45283 oral No Start Date Active Super B Complex 100 tablet RxNorm: 1 Tablet(s) PO daily No Start Date Active Glucosamine Chondroi tin Maximum Strength oral RxNorm: 4845 oral No Start Date Active garlic 1,000 mg capsule RxNorm: 471909 1 Capsule(s) PO BID No Start Date Active vitamin E (dl, aceta te) 400 unit capsule RxNorm: 350184 1 Capsule(s) PO daily No Start Date Active beta carotene 25,000 unit tablet RxNorm: 162182 1 Tablet(s) PO daily No Start Date Active rutin 500 mg tablet RxNorm: 975319 1/2 Tablet(s) PO daily No Start Date Active Calcium 600 + [place] ls oral RxNorm: 931244 oral No S tart Date Active Vitamin D3 1,000 uni t tablet RxNorm: 096856 1 Tablet(s) PO daily No Start Date Active Vitamin C 500 mg tablet RxNorm: 628399 1 Tablet(s) PO daily No Start Date Active acidophilus 25 susanne on cell-pectin, citrus 100 mg tablet RxNorm: 755426 1 Tablet(s) PO BID No Start Date Active Zinc and C oral RxNorm: oral No Start Date Active aspirin 81 mg chewab le tablet RxNorm: 504055 1 Tablet(s) PO QPM No Start Date Active Zegerid OTC 20 mg-1. 1 gram capsule RxNorm: 432324 1 Capsule(s) PO daily No Start Date Active magnesium 250 mg tablet RxNorm: 1 Tablet(s) PO daily No Start Date Active flaxseed oil 1,000 m g capsule RxNorm: 064346 1 Capsule(s) PO BID No Start Date Active milk thistle 175 mg tablet RxNorm: 805477 1 Tablet(s) PO daily No Start Date Active metformin ER 750 mg tablet,extended release 24 hr RxNorm: 314368 2 Tablet(s) PO daily No Start Date 08/06/2017 Inactive atorvastatin 20 mg t ablet RxNorm: 817907 1 Tablet(s) PO daily No Start Date 08/27/2017 Inactive Tradjenta 5 mg tablet RxNorm: 9609104 1 Tablet(s) PO daily No Start Date 08/11/2017 Inactive diltiazem ER 300 mg tablet,extended release 24 hr RxNorm: 027176 1 Tablet(s) PO daily No Start Date 05/18/2017 Inactive glimepiride 2 mg tablet RxNorm: 222186 1 Tablet(s) PO BID No Start Date 07/17/2017 Inactive Zithromax Z-Maury 250 mg tablet RxNorm: 366361 1 Tablet(s) PO UD No Start Date 08/14/2017 Inactive atenolol 50 mg-chlor thalidone 25 mg tablet RxNorm: 599378 1 Tablet(s) PO daily No Start Date 12/17/2017 Inactive diltiazem CD 360 mg capsule,extended release 24 hr RxNorm: 653840 1 Capsule(s) PO QHS No Start Date 07/02/2017 Inactive Medication Administered Medication Codes Instruc tions Start Date Status Kenalog 40 mg/mL suspension for injection RxNorm: 3047957 1Milliliter 10/15/2018 N o longer Active Immunizations Vaccine Codes Date Status Influenza CVX: 141 06/24 completed Influenza CVX: 141 06/09 completed Assessments Condition Codes Effectiv e Dates Essential (primary) hypertension ICD -10: I10 ICD-9: 401.1 02/22/2019 Type 2 diabetes mellitus with hyperglycemia ICD-10: E11.65 ICD-9: 250.02 02/22/2019 Bitten or stung by nonvenomous insect an d other nonvenomous arthropods, subsequent encounter ICD-10: W57.XXXD ICD-9: 919.4 02/19/2019 Cellulitis of right lower limb ICD-1 0: L03.115 ICD-9: 682.6 02/19/2019 Bitten or stung by nonvenomous insect an d other nonvenomous arthropods, initial encounter ICD-10: W57.XXXA ICD-9: 919.4 01/25/2019 Mixed hyperlipidemia ICD-10: E78.2 ICD-9: 272.2 10/21/2018 Other allergic rhinitis ICD-10: J30. 89 ICD-9: 477.8 10/15/2018 Other acute sinusitis ICD-10: J01.80 ICD-9: 461.8 10/15/2018 Encounter for immunization ICD-10: Z 23 ICD-9: V04.81 06/24/2018 Other specified anemias ICD-10: D64. 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 ICD-9: 280.0 06/10/2017 Reason For Visit Reason For Visit Effective Dates Notes diabetes mellitus 02/22/2019 arthropod bite 02/19/2019 arthropod bite 01/25/2019 diabetes mellitus 11/16/2018 sinus congestion 10/15/2018 diabetes mellitus 08/05/2018 vaccination against influenza 06/24/2018 diabetes mellitus 06/22/2018 vision change 05/14/2018 dizziness 04/27/2018 kirstie ble vision diabetes mellitus 04/03/2018 diabetes mellitus 01/27/2018 Annual Medicare Wellness Exam 01/21/2018 diabetes mellitus 01/06/2018 diabetes mellitus 12/31/2017 diabetes mellitus 10/08/2017 diabetes mellitus 08/27/2017 diabetes mellitus 06/25/2017 diabetes mellitus 06/10/2017 vaccination against influenza 06/09/2017 hypertension 05/20/2017 Results Observation Observation Code Item Item Code Result Date %Hba1C Ogz863 % HbA1c 08806-5 6.5 % 02/22/2019 %Hba1C Pkn200 Gluc Ave 140 mg/dL 02/22/2019 Comp Metabolic Srz723 NA 138 mEq/L 02/22/2019 Comp Metabolic Sqh256 K 4.0 mEq/L 02/22/2019 Comp Metabolic Sfz429 CL 99 mEq/L 02/22/2019 Comp Metabolic Wob395 CO2 29.0 mEq/L 02/22/2019 Comp Metabolic Ysl308 AN ION GAP 14 02/22/2019 Comp Metabolic Svf034 GL UCOSE 137 mg/dL 02/22/2019 Comp Metabolic Upc433 Cr eat 1.2 mg/dL 02/22/2019 Comp Metabolic Ldl919 eG FR 62 ml/min/1.73m2 02/22 Comp Metabolic Jva457 BUN 26 mg/dL 02/22/2019 Comp Metabolic Vwy605 B/ C Ratio 22.0 Ratio 02/22/2019 Comp Metabolic Rio585 CA LCIUM 9.8 mg/dL 02/22/2019 Comp Metabolic Osk633 AL K PHOS 41 U/L 02/22/2019 Comp Metabolic Cjq980 T(SGOT) 18 U/L 02/22/2019 Comp Metabolic Pwo760 AL T(SGPT) 20 U/L 02/22/2019 Comp Metabolic Vgp347 BI LI T 0.4 mg/dL 02/22/2019 Comp Metabolic Jqy250 AL BUMIN 4.4 g/dL 02/22/2019 Comp Metabolic Nou221 TP RO 6.8 g/dL 02/22/2019 Comp Metabolic Nei339 GL OB 2.4 g/dL 02/22/2019 Comp Metabolic Xrx074 A/ G Ratio 1.8 Ratio 02/22/2019 Comp Metabolic Ela352 Os mo 283 mOsmo 02/22/2019 Lipid Ord30 CHOL 223 mg/dL 02/22/2019 Lipid Ord30 HDL 31.0 mg/dl 02/22/2019 Lipid Ord30 TRIG 298 mg/dL 02/22/2019 Lipid Ord30 LDL 132 mg/dL 02/22/2019 Lipid Ord30 C/HDL 7.2 Ratio 02/22/2019 Comp Metabolic Jxx718 NA 137 mEq/L 11/09/2018 Comp Metabolic Lvi393 K 4.4 mEq/L 11/09/2018 Comp Metabolic Few947 CL 97 mEq/L 11/09/2018 Comp Metabolic Kpe509 CO2 30.0 mEq/L 11/09/2018 Comp Metabolic Wjn465 AN ION GAP 14 11/09/2018 Comp Metabolic Vqn477 GL UCOSE 122 mg/dL 11/09/2018 Comp Metabolic Moa144 Cr eat 1.1 mg/dL 11/09/2018 Comp Metabolic Roc304 eG FR 70 ml/min/1.73m2 11/09 Comp Metabolic Qco497 BUN 21 mg/dL 11/09/2018 Comp Metabolic Fay481 B/ C Ratio 19.6 Ratio 11/09/2018 Comp Metabolic Lzt001 CA LCIUM 10.2 mg/dL 11/09/2018 Comp Metabolic Tbl699 AL K PHOS 45 U/L 11/09/2018 Comp Metabolic Cip508 T(SGOT) 19 U/L 11/09/2018 Comp Metabolic Cca231 AL T(SGPT) 24 U/L 11/09/2018 Comp Metabolic Scz826 BI LI T 0.5 mg/dL 11/09/2018 Comp Metabolic Baj408 AL BUMIN 4.4 g/dL 11/09/2018 Comp Metabolic Jrt737 TP RO 6.7 g/dL 11/09/2018 Comp Metabolic Prb280 GL OB 2.3 g/dL 11/09/2018 Comp Metabolic Jwe327 A/ G Ratio 1.9 Ratio 11/09/2018 Comp Metabolic Lte231 Os mo 278 mOsmo 11/09/2018 Cbc With Differential Ord2 WBC 8.35 K/ul 11/09/2018 Cbc With Differential Ord2 RBC 4.34 M/ul 11/09/2018 Cbc With Differential Ord2 HGB 13.9 g/dl 11/09/2018 Cbc With Differential Ord2 Neut% 63.1 % 11/09/2018 Cbc With Differential Ord2 HCT 40.7 % 11/09/2018 Cbc With Differential Ord2 MCV 93.8 fl 11/09/2018 Cbc With Differential Ord2 Lymph% 25.5 % 11/09/2018 Cbc With Differential Ord2 MCH 32.0 pg 11/09/2018 Cbc With Differential Ord2 [place]% 9.8 % 11/09/2018 Cbc With Differential Ord2 Eos% 1.4 % 11/09/2018 Cbc With Differential Ord2 MCHC 34.2 pg 11/09/2018 Cbc With Differential Ord2 PLT 217 K/ul 11/09/2018 Cbc With Differential Ord2 Baso% 0.2 % 11/09/2018 Cbc With Differential Ord2 RDW 13.6 % 11/09/2018 Cbc With Differential Ord2 Neut ABS# 5.26 K/ul 11/09/2018 Cbc With Differential Ord2 Lymph ABS# 2.13 K/ul 11/09/2018 Cbc With Differential Ord2 [place] ABS# 0.8 K/ul 11/09/2018 Cbc With Differential Ord2 Eos ABS# 0.1 K/ul 11/09/2018 Cbc With Differential Ord2 Baso ABS# 0.0 K/ul 11/09/2018 %Hba1C Bye034 % HbA1c 80399-9 6.7 % 11/09/2018 %Hba1C Byn605 Gluc Ave 146 mg/dL 11/09/2018 Tsh Ord6 TSH (3rd IS) 1.97 uIU/mL 11/09/2018 Lipid Ord30 CHOL 220 mg/dL 11/09/2018 Lipid Ord30 HDL 33.0 mg/dl 11/09/2018 Lipid Ord30 TRIG 260 mg/dL 11/09/2018 Lipid Ord30 LDL 135 mg/dL 11/09/2018 Lipid Ord30 C/HDL 6.7 Ratio 11/09/2018 Cbc With Differential Ord2 WBC 7.51 K/ul 08/03/2018 Cbc With Differential Ord2 RBC 4.24 M/ul 08/03/2018 Cbc With Differential Ord2 HGB 13.3 g/dl 08/03/2018 Cbc With Differential Ord2 HCT 38.9 % 08/03/2018 Cbc With Differential Ord2 Neut% 64.9 % 08/03/2018 Cbc With Differential Ord2 MCV 91.7 fl 08/03/2018 Cbc With Differential Ord2 Lymph% 21.6 % 08/03/2018 Cbc With Differential Ord2 MCH 31.4 pg 08/03/2018 Cbc With Differential Ord2 [place]% 11.9 % 08/03/2018 Cbc With Differential Ord2 MCHC 34.2 pg 08/03/2018 Cbc With Differential Ord2 Eos% 1.3 % 08/03/2018 Cbc With Differential Ord2 PLT 255 K/ul 08/03/2018 Cbc With Differential Ord2 Baso% 0.3 % 08/03/2018 Cbc With Differential Ord2 RDW 13.2 % 08/03/2018 Cbc With Differential Ord2 Neut ABS# 4.88 K/ul 08/03/2018 Cbc With Differential Ord2 Lymph ABS# 1.62 K/ul 08/03/2018 Cbc With Differential Ord2 [place] ABS# 0.9 K/ul 08/03/2018 Cbc With Differential Ord2 Eos ABS# 0.1 K/ul 08/03/2018 Cbc With Differential Ord2 Baso ABS# 0.0 K/ul 08/03/2018 Comp Metabolic Yyt202 NA 135 mEq/L 08/03/2018 Comp Metabolic Eaq579 K 3.5 mEq/L 08/03/2018 Comp Metabolic Whb989 CL 95 mEq/L 08/03/2018 Comp Metabolic Kmk886 CO2 30.0 mEq/L 08/03/2018 Comp Metabolic Ewo243 AN ION GAP 14 08/03/2018 Comp Metabolic Uru101 GL UCOSE 152 mg/dL 08/03/2018 Comp Metabolic Nvo947 Cr eat 1.2 mg/dL 08/03/2018 Comp Metabolic Mcw919 eG FR 61 ml/min/1.73m2 08/03 Comp Metabolic Uja148 BUN 23 mg/dL 08/03/2018 Comp Metabolic Ccx122 B/ C Ratio 19.0 Ratio 08/03/2018 Comp Metabolic Zoc457 CA LCIUM 9.6 mg/dL 08/03/2018 Comp Metabolic Mfj999 AL K PHOS 51 U/L 08/03/2018 Comp Metabolic Eyh138 T(SGOT) 20 U/L 08/03/2018 Comp Metabolic Mnl314 AL T(SGPT) 24 U/L 08/03/2018 Comp Metabolic Vzc829 BI LI T 0.5 mg/dL 08/03/2018 Comp Metabolic Hye238 AL BUMIN 4.3 g/dL 08/03/2018 Comp Metabolic Ohl022 TP RO 6.8 g/dL 08/03/2018 Comp Metabolic Vsc155 GL OB 2.6 g/dL 08/03/2018 Comp Metabolic Ntf507 A/ G Ratio 1.7 Ratio 08/03/2018 Comp Metabolic Rvz398 Os mo 277 mOsmo 08/03/2018 %Hba1C Ywu580 % HbA1c 85941-1 7.3 % 08/03/2018 %Hba1C Tpk925 Gluc Ave 163 mg/dL 08/03/2018 Cbc With Differential Ord2 WBC 7.96 K/ul 05/14/2018 Cbc With Differential Ord2 RBC 4.43 M/ul 05/14/2018 Cbc With Differential Ord2 HGB 13.8 g/dl 05/14/2018 Cbc With Differential Ord2 HCT 40.9 % 05/14/2018 Cbc With Differential Ord2 Neut% 63.8 % 05/14/2018 Cbc With Differential Ord2 MCV 92.3 fl 05/14/2018 Cbc With Differential Ord2 Lymph% 22.7 % 05/14/2018 Cbc With Differential Ord2 MCH 31.2 pg 05/14/2018 Cbc With Differential Ord2 [place]% 12.2 % 05/14/2018 Cbc With Differential Ord2 MCHC 33.7 pg 05/14/2018 Cbc With Differential Ord2 Eos% 1.0 % 05/14/2018 Cbc With Differential Ord2 PLT 266 K/ul 05/14/2018 Cbc With Differential Ord2 Baso% 0.3 % 05/14/2018 Cbc With Differential Ord2 RDW 13.2 % 05/14/2018 Cbc With Differential Ord2 Neut ABS# 5.08 K/ul 05/14/2018 Cbc With Differential Ord2 Lymph ABS# 1.81 K/ul 05/14/2018 Cbc With Differential Ord2 [place] ABS# 1.0 K/ul 05/14/2018 Cbc With Differential Ord2 Eos ABS# 0.1 K/ul 05/14/2018 Cbc With Differential Ord2 Baso ABS# 0.0 K/ul 05/14/2018 Ehrlichia Chaffeensis Antibody Igm [id number] EHRLICHIA CHAFFEENSIS IGM < 1:16 04/09/2018 Ehrlichia Chaffeensis Antibody Igg 152512 EHRLICHIA CHAFFEENSIS IGG 1:64 04/09/2018 [place] Spotted Fever Igg/Igm 58310 3 [place]US [place] SPOTTED FEVER IGM EIA . 04/09/2018 [place] Spotted Fever Igg/Igm 64936 3 RMSF, IGM 0.36 index 04/09/2018 [place] Spotted Fever Igg/Igm 28194 3 LOTUS MT SPOTTED FEVER IGG EIA FLEX . 04/09/2018 [place] Spotted Fever Igg/Igm 40054 3 RMSF, IGG SCREEN-FLEX Negative 04/09/2018 [place]ym[place] Disease Total Antibodies With Western Blot Refle x [id number] B. BURGDORFERI, IGG/IGM 0.31 04/07/2018 [facility]ym[facility] Disease Total Antibodies With Western Blot Refle x [id number] INTERPRETATION 04/07/2018 %Hba1C Clx337 % HbA1c 64707-7 7.2 % 03/31/2018 %Hba1C Maj335 Gluc Ave 160 mg/dL 03/31/2018 Lipid Ord30 CHOL 124 mg/dL 12/22/2017 Lipid Ord30 HDL 29.0 mg/dl 12/22/2017 Lipid Ord30 TRIG 185 mg/dL 12/22/2017 Lipid Ord30 LDL 58 mg/dL 12/22/2017 Lipid Ord30 C/HDL 4.3 Ratio 12/22/2017 Cbc With Differential Ord2 WBC 9.63 K/ul 12/22/2017 Cbc With Differential Ord2 RBC 4.51 M/ul 12/22/2017 Cbc With Differential Ord2 HGB 14.1 g/dl 12/22/2017 Cbc With Differential Ord2 HCT 41.6 % 12/22/2017 Cbc With Differential Ord2 Neut% 65.0 % 12/22/2017 Cbc With Differential Ord2 MCV 92.2 fl 12/22/2017 Cbc With Differential Ord2 Lymph% 22.4 % 12/22/2017 Cbc With Differential Ord2 MCH 31.3 pg 12/22/2017 Cbc With Differential Ord2 [place]% 11.5 % 12/22/2017 Cbc With Differential Ord2 MCHC 33.9 pg 12/22/2017 Cbc With Differential Ord2 Eos% 0.9 % 12/22/2017 Cbc With Differential Ord2 PLT 223 K/ul 12/22/2017 Cbc With Differential Ord2 Baso% 0.2 % 12/22/2017 Cbc With Differential Ord2 RDW 13.4 % 12/22/2017 Cbc With Differential Ord2 Neut ABS# 6.25 K/ul 12/22/2017 Cbc With Differential Ord2 Lymph ABS# 2.16 K/ul 12/22/2017 Cbc With Differential Ord2 [place] ABS# 1.1 K/ul 12/22/2017 Cbc With Differential Ord2 Eos ABS# 0.1 K/ul 12/22/2017 Cbc With Differential Ord2 Baso ABS# 0.0 K/ul 12/22/2017 Comp Metabolic Pel449 NA 141 mEq/L 12/22/2017 Comp Metabolic Ooa688 K 3.9 mEq/L 12/22/2017 Comp Metabolic Heo331 CL 99 mEq/L 12/22/2017 Comp Metabolic Ktx495 CO2 32.0 mEq/L 12/22/2017 Comp Metabolic Dan006 AN ION GAP 14 12/22/2017 Comp Metabolic Zwv807 GL UCOSE 152 mg/dL 12/22/2017 Comp Metabolic Fzo145 Cr eat 1.0 mg/dL 12/22/2017 Comp Metabolic Zyh262 eG FR 78 ml/min/1.73m2 12/22 Comp Metabolic Dqq147 BUN 27 mg/dL 12/22/2017 Comp Metabolic Bau600 B/ C Ratio 27.8 Ratio 12/22/2017 Comp Metabolic Hed941 CA LCIUM 9.7 mg/dL 12/22/2017 Comp Metabolic Zdq926 AL K PHOS 56 U/L 12/22/2017 Comp Metabolic Bxq410 T(SGOT) 18 U/L 12/22/2017 Comp Metabolic Wsz728 AL T(SGPT) 20 U/L 12/22/2017 Comp Metabolic Vnz077 BI LI T 0.4 mg/dL 12/22/2017 Comp Metabolic Qyl732 AL BUMIN 4.2 g/dL 12/22/2017 Comp Metabolic Zjf701 TP RO 6.4 g/dL 12/22/2017 Comp Metabolic Xbo114 GL OB 2.2 g/dL 12/22/2017 Comp Metabolic Zyz327 A/ G Ratio 1.9 Ratio 12/22/2017 Comp Metabolic Dtg632 Os mo 289 mOsmo 12/22/2017 %Hba1C Jzc004 % HbA1c 97013-3 7.1 % 12/22/2017 %Hba1C Wfw891 Gluc Ave 157 mg/dL 12/22/2017 Cbc With Differential Ord2 WBC 10.41 K/ul 09/22/2017 Cbc With Differential Ord2 RBC 4.63 M/ul 09/22/2017 Cbc With Differential Ord2 HGB 14.6 g/dl 09/22/2017 Cbc With Differential Ord2 HCT 43.2 % 09/22/2017 Cbc With Differential Ord2 Neut% 73.5 % 09/22/2017 Cbc With Differential Ord2 MCV 93.3 fl 09/22/2017 Cbc With Differential Ord2 Lymph% 17.6 % 09/22/2017 Cbc With Differential Ord2 MCH 31.5 pg 09/22/2017 Cbc With Differential Ord2 [place]% 8.4 % 09/22/2017 Cbc With Differential Ord2 MCHC 33.8 pg 09/22/2017 Cbc With Differential Ord2 Eos% 0.4 % 09/22/2017 Cbc With Differential Ord2 PLT 222 K/ul 09/22/2017 Cbc With Differential Ord2 Baso% 0.1 % 09/22/2017 Cbc With Differential Ord2 RDW 13.7 % 09/22/2017 Cbc With Differential Ord2 Neut ABS# 7.66 K/ul 09/22/2017 Cbc With Differential Ord2 Lymph ABS# 1.83 K/ul 09/22/2017 Cbc With Differential Ord2 [place] ABS# 0.9 K/ul 09/22/2017 Cbc With Differential Ord2 Eos ABS# 0.0 K/ul 09/22/2017 Cbc With Differential Ord2 Baso ABS# 0.0 K/ul 09/22/2017 %Hba1C Xwa751 % HbA1c 37021-0 6.9 % 09/22/2017 %Hba1C Ogy460 Gluc Ave 151 mg/dL 09/22/2017 Tsh Ord6 hTSH II 1.87 uIU/mL 06/17/2017 Lipid Ord30 CHOL 141 mg/dL 06/17/2017 Lipid Ord30 HDL 30.0 mg/dl 06/17/2017 Lipid Ord30 TRIG 270 mg/dL 06/17/2017 Lipid Ord30 LDL 57 mg/dL 06/17/2017 Lipid Ord30 C/HDL 4.7 Ratio 06/17/2017 Cbc With Differential Ord2 WBC 10.39 K/ul 06/17/2017 Cbc With Differential Ord2 RBC 4.55 M/ul 06/17/2017 Cbc With Differential Ord2 HGB 14.4 g/dl 06/17/2017 Cbc With Differential Ord2 HCT 41.7 % 06/17/2017 Cbc With Differential Ord2 Neut% 64.9 % 06/17/2017 Cbc With Differential Ord2 MCV 91.6 fl 06/17/2017 Cbc With Differential Ord2 Lymph% 22.6 % 06/17/2017 Cbc With Differential Ord2 MCH 31.6 pg 06/17/2017 Cbc With Differential Ord2 [place]% 11.1 % 06/17/2017 Cbc With Differential Ord2 MCHC 34.5 pg 06/17/2017 Cbc With Differential Ord2 Eos% 1.2 % 06/17/2017 Cbc With Differential Ord2 PLT 242 K/ul 06/17/2017 Cbc With Differential Ord2 Baso% 0.2 % 06/17/2017 Cbc With Differential Ord2 RDW 13.3 % 06/17/2017 Cbc With Differential Ord2 Neut ABS# 6.75 K/ul 06/17/2017 Cbc With Differential Ord2 Lymph ABS# 2.35 K/ul 06/17/2017 Cbc With Differential Ord2 [place] ABS# 1.2 K/ul 06/17/2017 Cbc With Differential Ord2 Eos ABS# 0.1 K/ul 06/17/2017 Cbc With Differential Ord2 Baso ABS# 0.0 K/ul 06/17/2017 %Hba1C Fqc229 % HbA1c 70266-3 7.3 % 06/17/2017 %Hba1C But087 Gluc Ave 163 mg/dL 06/17/2017 Comp Metabolic Iuz677 NA 137 mEq/L 06/17/2017 Comp Metabolic Idu604 K 3.8 mEq/L 06/17/2017 Comp Metabolic Rzf039 CL 98 mEq/L 06/17/2017 Comp Metabolic Wwy568 CO2 30.0 mEq/L 06/17/2017 Comp Metabolic Zjs287 AN ION GAP 13 06/17/2017 Comp Metabolic Hsm672 GL UCOSE 157 mg/dL 06/17/2017 Comp Metabolic Ugj900 Cr eat 1.0 mg/dL 06/17/2017 Comp Metabolic Cjq931 eG FR 76 ml/min/1.73m2 06/17 Comp Metabolic Wed429 BUN 18 mg/dL 06/17/2017 Comp Metabolic Xrm230 B/ C Ratio 18.0 Ratio 06/17/2017 Comp Metabolic Evw201 CA LCIUM 9.8 mg/dL 06/17/2017 Comp Metabolic Lhr342 AL K PHOS 57 U/L 06/17/2017 Comp Metabolic Rry376 T(SGOT) 19 U/L 06/17/2017 Comp Metabolic Nxe216 AL T(SGPT) 23 U/L 06/17/2017 Comp Metabolic Vmb901 BI LI T 0.6 mg/dL 06/17/2017 Comp Metabolic Mqh400 AL BUMIN 4.4 g/dL 06/17/2017 Comp Metabolic Stk221 TP RO 6.8 g/dL 06/17/2017 Comp Metabolic Xvu292 GL OB 2.4 g/dL 06/17/2017 Comp Metabolic Ona806 A/ G Ratio 1.9 Ratio 06/17/2017 Comp Metabolic Def954 Os mo 279 mOsmo 06/17/2017 Review of Systems System Result Effective Dates Constitutional No recent illness 02/22/2019 Constitutional No chills 02/22/2019 Constitutional No diaphoresis 02/22/2019 Constitutional No fatigue 02/22/2019 Eyes No eye erythema 03/2019 Ears/Nose/Throat/Neck nasal allergies 02/22/2019 Ears/Nose/Throat/Neck No nasal discharge 02/22/2019 Cardiovascular No chest pain/pressure 02/22/2019 Respiratory No chest congestion 02/22/2019 Respiratory No cough 03/2019 Gastrointestinal No abdominal pain 02/22/2019 Dermatologic No rash 03/2019 Neurologic No alteration of consciousness 02/22/2019 Neurologic No mental status change 02/22/2019 Endocrine diabetes mellitus type 2 02/22/2019 Constitutional No recent illness 02/19/2019 Constitutional No chills 02/19/2019 Constitutional No diaphoresis 02/19/2019 Constitutional No fever 02/19/2019 Eyes No eye erythema 12/2018 Ears/Nose/Throat/Neck No nasal discharge 02/19/2019 Cardiovascular No chest pain/pressure 02/19/2019 Respiratory No cough 12/2018 Neurologic No alteration of consciousness 02/19/2019 Neurologic No mental status change 02/19/2019 Dermatologic sores 02/19 Constitutional No recent illness 01/25/2019 Constitutional No chills 01/25/2019 Constitutional No diaphoresis 01/25/2019 Constitutional No fever 01/25/2019 Eyes No eye erythema 05/2019 Ears/Nose/Throat/Neck No nasal discharge 01/25/2019 Cardiovascular No chest pain/pressure 01/25/2019 Respiratory No cough 05/2019 Neurologic No alteration of consciousness 01/25/2019 Neurologic No mental status change 01/25/2019 Dermatologic sores 01/25 Constitutional No recent illness 11/16/2018 Constitutional No chills 11/16/2018 Constitutional No diaphoresis 11/16/2018 Constitutional No fatigue 11/16/2018 Eyes No eye erythema 08/2018 Ears/Nose/Throat/Neck nasal allergies 11/16/2018 Ears/Nose/Throat/Neck No nasal discharge 11/16/2018 Cardiovascular No chest pain/pressure 11/16/2018 Gastrointestinal No abdominal pain 11/16/2018 Dermatologic No rash 08/2018 Neurologic No alteration of consciousness 11/16/2018 Neurologic No mental status change 11/16/2018 Endocrine diabetes mellitus type 2 11/16/2018 Respiratory No chest congestion 11/16/2018 Respiratory No cough 08/2018 Constitutional recent illness 10/15/2018 Constitutional No chills 10/15/2018 Constitutional No diaphoresis 10/15/2018 Constitutional No fever 10/15/2018 Eyes No eye erythema Ears/Nose/Throat/Neck nasal allergies 10/15/2018 Ears/Nose/Throat/Neck nasal discharge 10/15/2018 Ears/Nose/Throat/Neck postnasal drip 10/15/2018 Ears/Nose/Throat/Neck sinus congestion 10/15/2018 Ears/Nose/Throat/Neck No sore throat 10/15/2018 Cardiovascular No chest pain/pressure 10/15/2018 Cardiovascular No dyspnea 10/15/2018 Respiratory No chest congestion 10/15/2018 Respiratory cough 2018 Respiratory No dyspnea 0 10/15/2018 Gastrointestinal No abdominal pain 10/15/2018 Gastrointestinal No constipation 10/15/2018 Gastrointestinal No diarrhea 10/15/2018 Gastrointestinal No nausea 10/15/2018 Gastrointestinal No vomiting 10/15/2018 Dermatologic No rash Neurologic No alteration of consciousness 10/15/2018 Neurologic No mental status change 10/15/2018 Constitutional No recent illness 08/05/2018 Constitutional No chills 08/05/2018 Constitutional No diaphoresis 08/05/2018 Constitutional No fatigue 08/05/2018 Eyes No eye erythema Ears/Nose/Throat/Neck nasal allergies 08/05/2018 Ears/Nose/Throat/Neck No nasal discharge 08/05/2018 Cardiovascular No chest pain/pressure 08/05/2018 Respiratory chest congestion 08/05/2018 Respiratory cough 2017 Respiratory dyspnea on exertion 08/05/2018 Respiratory No dyspnea 1 10/06/2017 Gastrointestinal No abdominal pain 08/05/2018 Dermatologic No rash Neurologic No alteration of consciousness 08/05/2018 Neurologic No mental status change 08/05/2018 Endocrine diabetes mellitus type 2 08/05/2018 Constitutional No recent illness 06/22/2018 Constitutional No chills 06/22/2018 Constitutional No diaphoresis 06/22/2018 Constitutional No fatigue 06/22/2018 Eyes No eye erythema 12/2017 Ears/Nose/Throat/Neck No nasal discharge 06/22/2018 Cardiovascular No chest pain/pressure 06/22/2018 Respiratory cough 2017 Gastrointestinal No abdominal pain 06/22/2018 Dermatologic No rash 12/2017 Neurologic No alteration of consciousness 06/22/2018 Endocrine diabetes mellitus type 2 06/22/2018 Ears/Nose/Throat/Neck nasal allergies 06/22/2018 Ears/Nose/Throat/Neck postnasal drip 06/22/2018 Respiratory chest congestion 06/22/2018 Respiratory No dyspnea 1 08/22/2017 Respiratory dyspnea on exertion 06/22/2018 Neurologic No mental status change 06/22/2018 Constitutional No recent illness 05/14/2018 Constitutional No chills 05/14/2018 Constitutional No diaphoresis 05/14/2018 Constitutional No fever 05/14/2018 Eyes No eye erythema Eyes No eye pain 018 Eyes No photophobia 04/19 Ears/Nose/Throat/Neck No nasal discharge 05/14/2018 Cardiovascular No chest pain/pressure 05/14/2018 Cardiovascular No dyspnea 05/14/2018 Respiratory No cough Respiratory No chest congestion 05/14/2018 Gastrointestinal No abdominal pain 05/14/2018 Dermatologic No rash Neurologic No alteration of consciousness 05/14/2018 Neurologic No mental status change 05/14/2018 Neurologic No memory loss 05/14/2018 Neurologic No headache 0 05/14/2018 Neurologic No gait abnormality 05/14/2018 Neurologic dizziness Neurologic No weakness 0 05/14/2018 Neurologic vision change 05/14/2018 Neurologic vertigo 05/14 Neurologic No speech difficulties 05/14/2018 Neurologic No seizure Neurologic No paresthesia 05/14/2018 Constitutional No recent illness 04/27/2018 Constitutional No chills 04/27/2018 Constitutional No diaphoresis 04/27/2018 Constitutional No fever 04/27/2018 Eyes No eye erythema 05/2018 Ears/Nose/Throat/Neck nasal allergies 04/27/2018 Ears/Nose/Throat/Neck nasal discharge 04/27/2018 Ears/Nose/Throat/Neck dizziness 04/27/2018 Ears/Nose/Throat/Neck No sore throat 04/27/2018 Ears/Nose/Throat/Neck No sinus congestion 04/27/2018 Cardiovascular No chest pain/pressure 04/27/2018 Cardiovascular No dyspnea 04/27/2018 Respiratory No cough 05/2018 Respiratory No chest congestion 04/27/2018 Neurologic No alteration of consciousness 04/27/2018 Neurologic No mental status change 04/27/2018 Constitutional No recent illness 04/03/2018 Constitutional No chills 04/03/2018 Constitutional No diaphoresis 04/03/2018 Constitutional No fever 04/03/2018 Eyes No eye erythema Ears/Nose/Throat/Neck No nasal allergies 04/03/2018 Ears/Nose/Throat/Neck No nasal discharge 04/03/2018 Cardiovascular No chest pain/pressure 04/03/2018 Cardiovascular No dyspnea 04/03/2018 Respiratory No chest congestion 04/03/2018 Respiratory No cough Gastrointestinal No abdominal pain 04/03/2018 Neurologic No alteration of consciousness 04/03/2018 Neurologic No mental status change 04/03/2018 Endocrine diabetes mellitus type 2 04/03/2018 Constitutional No recent illness 01/27/2018 Constitutional No chills 01/27/2018 Constitutional No diaphoresis 01/27/2018 Constitutional No fever 01/27/2018 Eyes No eye erythema 07/2018 Ears/Nose/Throat/Neck No nasal discharge 01/27/2018 Ears/Nose/Throat/Neck No nasal allergies 01/27/2018 Cardiovascular No chest pain/pressure 01/27/2018 Cardiovascular No dyspnea 01/27/2018 Respiratory No cough 07/2018 Respiratory No chest congestion 01/27/2018 Gastrointestinal No abdominal pain 01/27/2018 Neurologic No alteration of consciousness 01/27/2018 Neurologic No mental status change 01/27/2018 Endocrine diabetes mellitus type 2 01/27/2018 Constitutional No recent illness 01/21/2018 Constitutional No chills 01/21/2018 Constitutional No diaphoresis 01/21/2018 Constitutional No fever 01/21/2018 Eyes No eye erythema 01/2018 Ears/Nose/Throat/Neck No nasal discharge 01/21/2018 Cardiovascular No chest pain/pressure 01/21/2018 Cardiovascular No dyspnea 01/21/2018 Respiratory No cough 01/2018 Respiratory No dyspnea 0 01/21/2018 Neurologic No alteration of consciousness 01/21/2018 Neurologic No mental status change 01/21/2018 Constitutional No recent illness 01/06/2018 Constitutional No chills 01/06/2018 Constitutional No diaphoresis 01/06/2018 Constitutional No fatigue 01/06/2018 Eyes No eye erythema Ears/Nose/Throat/Neck No nasal discharge 01/06/2018 Cardiovascular No chest pain/pressure 01/06/2018 Respiratory No cough Gastrointestinal No abdominal pain 01/06/2018 Dermatologic No rash Neurologic No alteration of consciousness 01/06/2018 Endocrine diabetes mellitus type 2 01/06/2018 Constitutional No recent illness 12/31/2017 Constitutional No chills 12/31/2017 Constitutional No diaphoresis 12/31/2017 Constitutional No fever 12/31/2017 Eyes No eye erythema Ears/Nose/Throat/Neck hearing loss 12/31/2017 Ears/Nose/Throat/Neck No nasal allergies 12/31/2017 Ears/Nose/Throat/Neck No nasal discharge 12/31/2017 Cardiovascular No chest pain/pressure 12/31/2017 Cardiovascular No dyspnea 12/31/2017 Respiratory No chest congestion 12/31/2017 Respiratory No cough Gastrointestinal No abdominal pain 12/31/2017 Gastrointestinal No constipation 12/31/2017 Gastrointestinal No diarrhea 12/31/2017 Gastrointestinal No nausea 12/31/2017 Gastrointestinal No vomiting 12/31/2017 Musculoskeletal arthralgia(s) 12/31/2017 Neurologic No alteration of consciousness 12/31/2017 Neurologic No mental status change 12/31/2017 Endocrine diabetes mellitus type 2 12/31/2017 Constitutional No recent illness 10/08/2017 Constitutional No chills 10/08/2017 Constitutional No diaphoresis 10/08/2017 Constitutional No fever 10/08/2017 Eyes No eye erythema Ears/Nose/Throat/Neck hearing loss 10/08/2017 Ears/Nose/Throat/Neck No nasal allergies 10/08/2017 Ears/Nose/Throat/Neck No nasal discharge 10/08/2017 Cardiovascular No chest pain/pressure 10/08/2017 Cardiovascular No dyspnea 10/08/2017 Respiratory No chest congestion 10/08/2017 Respiratory No cough Gastrointestinal No abdominal pain 10/08/2017 Gastrointestinal No constipation 10/08/2017 Gastrointestinal No diarrhea 10/08/2017 Gastrointestinal No nausea 10/08/2017 Gastrointestinal No vomiting 10/08/2017 Musculoskeletal arthralgia(s) 10/08/2017 Dermatologic actinic keratosis 10/08/2017 Neurologic No alteration of consciousness 10/08/2017 Neurologic No mental status change 10/08/2017 Constitutional No recent illness 08/27/2017 Constitutional No chills 08/27/2017 Constitutional No diaphoresis 08/27/2017 Constitutional No fever 08/27/2017 Eyes No eye erythema 05/2018 Ears/Nose/Throat/Neck hearing loss 08/27/2017 Ears/Nose/Throat/Neck No nasal allergies 08/27/2017 Ears/Nose/Throat/Neck No nasal discharge 08/27/2017 Cardiovascular No chest pain/pressure 08/27/2017 Cardiovascular No dyspnea 08/27/2017 Respiratory No chest congestion 08/27/2017 Respiratory No cough 05/2018 Gastrointestinal No abdominal pain 08/27/2017 Gastrointestinal No constipation 08/27/2017 Gastrointestinal No diarrhea 08/27/2017 Gastrointestinal No nausea 08/27/2017 Gastrointestinal No vomiting 08/27/2017 Musculoskeletal arthralgia(s) 08/27/2017 Neurologic No alteration of consciousness 08/27/2017 Neurologic No mental status change 08/27/2017 Dermatologic actinic keratosis 08/27/2017 Constitutional No recent illness 06/25/2017 Constitutional No chills 06/25/2017 Constitutional No diaphoresis 06/25/2017 Constitutional No fever 06/25/2017 Eyes No eye erythema 03/2017 Ears/Nose/Throat/Neck hearing loss 06/25/2017 Ears/Nose/Throat/Neck No nasal allergies 06/25/2017 Ears/Nose/Throat/Neck No nasal discharge 06/25/2017 Cardiovascular No chest pain/pressure 06/25/2017 Cardiovascular No dyspnea 06/25/2017 Respiratory No chest congestion 06/25/2017 Respiratory No cough 03/2017 Gastrointestinal No abdominal pain 06/25/2017 Gastrointestinal No constipation 06/25/2017 Gastrointestinal No diarrhea 06/25/2017 Gastrointestinal No nausea 06/25/2017 Gastrointestinal No vomiting 06/25/2017 Musculoskeletal arthralgia(s) 06/25/2017 Dermatologic No rash 03/2017 Neurologic No alteration of consciousness 06/25/2017 Neurologic No mental status change 06/25/2017 Constitutional No recent illness 06/10/2017 Constitutional No chills 06/10/2017 Constitutional No diaphoresis 06/10/2017 Constitutional No fever 06/10/2017 Eyes No blindness 2016 Ears/Nose/Throat/Neck hearing loss 06/10/2017 Ears/Nose/Throat/Neck No nasal allergies 06/10/2017 Ears/Nose/Throat/Neck No nasal discharge 06/10/2017 Ears/Nose/Throat/Neck postnasal drip 06/10/2017 Ears/Nose/Throat/Neck No sinus congestion 06/10/2017 Cardiovascular No chest pain/pressure 06/10/2017 Cardiovascular No dyspnea 06/10/2017 Cardiovascular edema Respiratory No chest congestion 06/10/2017 Respiratory No cough Respiratory No dyspnea 1 Gastrointestinal No abdominal pain 06/10/2017 Gastrointestinal No constipation 06/10/2017 Gastrointestinal No diarrhea 06/10/2017 Gastrointestinal No nausea 06/10/2017 Gastrointestinal No vomiting 06/10/2017 Musculoskeletal arthralgia(s) 06/10/2017 Dermatologic No rash Neurologic No alteration of consciousness 06/10/2017 Neurologic No mental status change 06/10/2017 Genitourinary/Nephrology No dysuria 06/10/2017 Constitutional No recent illness 05/20/2017 Constitutional No chills 05/20/2017 Constitutional No diaphoresis 05/20/2017 Constitutional No fever 05/20/2017 Eyes No eye erythema 10/2016 Ears/Nose/Throat/Neck No nasal discharge 05/20/2017 Ears/Nose/Throat/Neck No nasal allergies 05/20/2017 Ears/Nose/Throat/Neck hearing loss 05/20/2017 Ears/Nose/Throat/Neck postnasal drip 05/20/2017 Ears/Nose/Throat/Neck No sinus congestion 05/20/2017 Cardiovascular No chest pain/pressure 05/20/2017 Cardiovascular No dyspnea 05/20/2017 Cardiovascular edema 10/2016 Respiratory No cough 10/2016 Respiratory No dyspnea 1 Respiratory No chest congestion 05/20/2017 Gastrointestinal No abdominal pain 05/20/2017 Gastrointestinal No constipation 05/20/2017 Gastrointestinal No diarrhea 05/20/2017 Gastrointestinal No vomiting 05/20/2017 Gastrointestinal No nausea 05/20/2017 Musculoskeletal arthralgia(s) 05/20/2017 Dermatologic No rash 10/2016 Neurologic No alteration of consciousness 05/20/2017 Neurologic No mental status change 05/20/2017 Physical Exam Exam Name System Name It em Name Status Result Effective Dates Notes Full Exam - General 1994 Constitutional general appearance Overall: well developed 02/22/2019 None Full Exam - General 1994 Constitutional general appearance Overall: in no acute distress 02/22/2019 None Full Exam - General 1994 Constitutional general appearance Overall: well nourished 02/22/2019 None Full Exam - General 1994 Eyes conjunctiva/eyelids Overall: conjunctiva clear 02/22/2019 None Full Exam - General 1994 Eyes conjunctiva/eyelids Overall: cornea clear 02/22/2019 None Full Exam - General 1994 Eyes conjunctiva/eyelids Overall: eyelids normal 02/22/2019 None Full Exam - General 1995 Ears/Nose/Throat lips/teeth/gingiva Overall: benign lips 02/22/2019 None Full Exam - General 1994 Ears/Nose/Throat oral cavity/pharynx/larynx Overall: oral mucosa clear 02/22/2019 None Full Exam - General 1994 Respiratory auscultation Overall: breath sounds clear bilaterally 02/22/2019 None Full Exam - General 1994 Respiratory auscultation Diffuse: diminished 02/22/2019 None Full Exam - General 1994 Respiratory respiratory effort/rhythm Overall: no retractions 02/22/2019 None Full Exam - General 1994 Respiratory respiratory effort/rhythm Overall: normal rate 02/22/2019 None Full Exam - General 1994 Cardiovascular auscultation of heart Rate: regular rate 02/22/2019 None Full Exam - General 1994 Musculoskeletal head and neck Overall: head atraumatic 02/22/2019 None Full Exam - General 1994 Neurologic cranial nerves Overall: crainial nerves 2 - 12 grossly intact 02/22/2019 None Full Exam - General 1994 Psychiatric orientation/consciousness Overall: oriented to person, place and time 02/22/2019 None Full Exam - General 1994 Psychiatric mood and affect Overall: normal mood and affect 02/22/2019 None Full Exam - General 1994 Psychiatric appearance Overall: well-groomed, good eye contact 02/22/2019 None Full Exam - Dermatology Constitutional general appearance Overall: well nourished 02/19/2019 None Full Exam - Dermatology Constitutional general appearance Overall: well developed 02/19/2019 None Full Exam - Dermatology Constitutional general appearance Overall: in no acute distress 02/19/2019 None Full Exam - Dermatology Eyes conjunctiva/eyelids Overall: clear conjunctiva bilaterally 02/19/2019 None Full Exam - Dermatology Eyes conjunctiva/eyelids Overall: clear corneas 02/19/2019 None Full Exam - Dermatology Eyes conjunctiva/eyelids Overall: normal eyelids 02/19/2019 None Full Exam - Dermatology Ears/Nose/Throat lips/teeth/gingiva Overall: benign lips 02/19/2019 None Full Exam - Dermatology Ears/Nose/Throat oropharynx Overall: clear oral mucosa 02/19/2019 None Full Exam - Dermatology Respiratory respiratory effort/rhythm Overall: no retractions 02/19/2019 None Full Exam - Dermatology Respiratory respiratory effort/rhythm Overall: normal rate 02/19/2019 None Full Exam - Dermatology Musculoskeletal head and neck Overall: head atraumatic 02/19/2019 None Full Exam - Dermatology Psychiatric orientation Overall: oriented to person, place and time 02/19/2019 None Full Exam - Dermatology Psychiatric mood and affect Overall: normal mood and affect 02/19/2019 None Full Exam - Dermatology Integument insp & palp - right lower extremity Location: on the [place] 02/19/2019 None Full Exam - Dermatology Integument insp & palp - right lower extremity Color: erythematous 02/19/2019 mild Full Exam - Dermatology Constitutional general appearance Overall: well nourished 01/25/2019 None Full Exam - Dermatology Constitutional general appearance Overall: well developed 01/25/2019 None Full Exam - Dermatology Constitutional general appearance Overall: in no acute distress 01/25/2019 None Full Exam - Dermatology Eyes conjunctiva/eyelids Overall: clear conjunctiva bilaterally 01/25/2019 None Full Exam - Dermatology Eyes conjunctiva/eyelids Overall: clear corneas 01/25/2019 None Full Exam - Dermatology Eyes conjunctiva/eyelids Overall: normal eyelids 01/25/2019 None Full Exam - Dermatology Ears/Nose/Throat lips/teeth/gingiva Overall: benign lips 01/25/2019 None Full Exam - Dermatology Ears/Nose/Throat oropharynx Overall: clear oral mucosa 01/25/2019 None Full Exam - Dermatology Respiratory respiratory effort/rhythm Overall: no retractions 01/25/2019 None Full Exam - Dermatology Respiratory respiratory effort/rhythm Overall: normal rate 01/25/2019 None Full Exam - Dermatology Musculoskeletal head and neck Overall: head atraumatic 01/25/2019 None Full Exam - Dermatology Psychiatric orientation Overall: oriented to person, place and time 01/25/2019 None Full Exam - Dermatology Psychiatric mood and affect Overall: normal mood and affect 01/25/2019 None Full Exam - Dermatology Integument insp & palp - right lower extremity Location: on the [place] 01/25/2019 None Full Exam - Dermatology Integument insp & palp - right lower extremity Lesion: patch 01/25/2019 None Full Exam - Dermatology Integument insp & palp - right lower extremity Color: erythematous 01/25/2019 None Full Exam - General 1994 Constitutional general appearance Overall: well developed 11/16/2018 None Full Exam - General 1994 Constitutional general appearance Overall: in no acute distress 11/16/2018 None Full Exam - General 1994 Constitutional general appearance Overall: well nourished 11/16/2018 None Full Exam - General 1994 Eyes conjunctiva/eyelids Overall: conjunctiva clear 11/16/2018 None Full Exam - General 1994 Eyes conjunctiva/eyelids Overall: cornea clear 11/16/2018 None Full Exam - General 1994 Eyes conjunctiva/eyelids Overall: eyelids normal 11/16/2018 None Full Exam - General 1995 Ears/Nose/Throat lips/teeth/gingiva Overall: benign lips 11/16/2018 None Full Exam - General 1995 Ears/Nose/Throat oral cavity/pharynx/larynx Overall: oral mucosa clear 11/16/2018 None Full Exam - General 1994 Respiratory auscultation Overall: breath sounds clear bilaterally 11/16/2018 None Full Exam - General 1994 Respiratory auscultation Diffuse: diminished 11/16/2018 None Full Exam - General 1994 Respiratory respiratory effort/rhythm Overall: no retractions 11/16/2018 None Full Exam - General 1994 Respiratory respiratory effort/rhythm Overall: normal rate 11/16/2018 None Full Exam - General 1994 Cardiovascular auscultation of heart Rate: regular rate 11/16/2018 None Full Exam - General 1994 Musculoskeletal head and neck Overall: head atraumatic 11/16/2018 None Full Exam - General 1994 Neurologic cranial nerves Overall: crainial nerves 2 - 12 grossly intact 11/16/2018 None Full Exam - General 1994 Psychiatric orientation/consciousness Overall: oriented to person, place and time 11/16/2018 None Full Exam - General 1994 Psychiatric mood and affect Overall: normal mood and affect 11/16/2018 None Full Exam - General 1994 Psychiatric appearance Overall: well-groomed, good eye contact 11/16/2018 None Full Exam - ENT Constitutional general appearance Overall: well nourished 10/15/2018 None Full Exam - ENT Constitutional general appearance Overall: well developed 10/15/2018 None Full Exam - ENT Constitutional general appearance Overall: in no acute distress 10/15/2018 None Full Exam - ENT Ears/Nose/Throat otoscopic exam Overall: external auditory canals normal 10/15/2018 None Full Exam - ENT Ears/Nose/Throat otoscopic exam Left tympanic membrane: air-fluid le hood 10/15/2018 None Full Exam - ENT Ears/Nose/Throat otoscopic exam Right tympanic membrane: air-fluid level 10/15/2018 None Full Exam - ENT Ears/Nose/Throat nasal mucosa, septum, turbinates Drainage: clear 10/15/2018 None Full Exam - ENT Ears/Nose/Throat nasal mucosa, septum, turbinates Drainage: yellow 10/15/2018 None Full Exam - ENT Ears/Nose/Throat lips/teeth/gingiva Overall: benign lips 10/15/2018 None Full Exam - ENT Ears/Nose/Throat oropharynx Posterior Pharynx: clear post nasal drainage 10/15/2018 None Full Exam - ENT Face and Head palpation Left maxillary sinus: tender 10/15/2018 None Full Exam - ENT Face and Head palpation Right maxillary sinus: tender 10/15/2018 None Full Exam - ENT Respiratory inspection Overall: no retractions 10/15/2018 None Full Exam - ENT Respiratory inspection Overall: normal rate None Full Exam - ENT Respiratory auscultation Overall: breath sounds clear bilater ally 10/15/2018 None Full Exam - ENT Cardiovascular auscultation of heart Overall: regular rate 10/15/2018 None Full Exam - ENT Cardiovascular auscultation of heart Overall: normal heart sounds 10/15/2018 None Full Exam - ENT Lymphatic palpation of lymph nodes Overall: anterior cervical chain benign 10/15/2018 None Full Exam - ENT Lymphatic palpation of lymph nodes Overall: posterior cervical chain benign 10/15/2018 None Full Exam - ENT Neurologic mood and affect Overall: normal mood 10/15/2018 None Full Exam - ENT Neurologic mood and affect Overall: normal affect 10/15/2018 None Full Exam - ENT Neurologic orientation Overall: oriented to person, place a nd time 10/15/2018 None Full Exam - General 1994 Constitutional general appearance Overall: well developed 08/05/2018 None Full Exam - General 1994 Constitutional general appearance Overall: in no acute distress 08/05/2018 None Full Exam - General 1994 Constitutional general appearance Overall: well nourished 08/05/2018 None Full Exam - General 1994 Eyes conjunctiva/eyelids Overall: conjunctiva clear 08/05/2018 None Full Exam - General 1994 Eyes conjunctiva/eyelids Overall: cornea clear 08/05/2018 None Full Exam - General 1994 Eyes conjunctiva/eyelids Overall: eyelids normal 08/05/2018 None Full Exam - General 1994 Ears/Nose/Throat lips/teeth/gingiva Overall: benign lips 08/05/2018 None Full Exam - General 1994 Ears/Nose/Throat oral cavity/pharynx/larynx Overall: oral mucosa clear 08/05/2018 None Full Exam - General 1994 Respiratory auscultation Overall: breath sounds clear bilaterally 08/05/2018 None Full Exam - General 1994 Respiratory respiratory effort/rhythm Overall: no retractions 08/05/2018 None Full Exam - General 1994 Respiratory respiratory effort/rhythm Overall: normal rate 08/05/2018 None Full Exam - General 1994 Cardiovascular auscultation of heart Rate: regular rate 08/05/2018 None Full Exam - General 1994 Musculoskeletal head and neck Overall: head atraumatic 08/05/2018 None Full Exam - General 1994 Neurologic cranial nerves Overall: crainial nerves 2 - 12 grossly intact 08/05/2018 None Full Exam - General 1994 Psychiatric orientation/consciousness Overall: oriented to person, place and time 08/05/2018 None Full Exam - General 1994 Psychiatric mood and affect Overall: normal mood and affect 08/05/2018 None Full Exam - General 1994 Psychiatric appearance Overall: well-groomed, good eye contact 08/05/2018 None Full Exam - General 1994 Respiratory auscultation Diffuse: diminished 08/05/2018 None Full Exam - General 1994 Constitutional general appearance Overall: well developed 06/22/2018 None Full Exam - General 1994 Constitutional general appearance Overall: in no acute distress 06/22/2018 None Full Exam - General 1994 Constitutional general appearance Overall: well nourished 06/22/2018 None Full Exam - General 1994 Eyes conjunctiva/eyelids Overall: conjunctiva clear 06/22/2018 None Full Exam - General 1994 Eyes conjunctiva/eyelids Overall: cornea clear 06/22/2018 None Full Exam - General 1994 Eyes conjunctiva/eyelids Overall: eyelids normal 06/22/2018 None Full Exam - General 1994 Ears/Nose/Throat lips/teeth/gingiva Overall: benign lips 06/22/2018 None Full Exam - General 1994 Respiratory respiratory effort/rhythm Overall: no retractions 06/22/2018 None Full Exam - General 1994 Respiratory respiratory effort/rhythm Overall: normal rate 06/22/2018 None Full Exam - General 1994 Musculoskeletal head and neck Overall: head atraumatic 06/22/2018 None Full Exam - General 1994 Neurologic cranial nerves Overall: crainial nerves 2 - 12 grossly intact 06/22/2018 None Full Exam - General 1994 Psychiatric orientation/consciousness Overall: oriented to person, place and time 06/22/2018 None Full Exam - General 1994 Psychiatric mood and affect Overall: normal mood and affect 06/22/2018 None Full Exam - General 1994 Psychiatric appearance Overall: well-groomed, good eye contact 06/22/2018 None Full Exam - General 1994 Respiratory auscultation Overall: breath sounds clear bilaterally 06/22/2018 None Full Exam - General 1994 Respiratory auscultation Diffuse: diminished 06/22/2018 None Full Exam - General 1994 Ears/Nose/Throat oral cavity/pharynx/larynx Overall: oral mucosa clear 06/22/2018 None Full Exam - General 1994 Ears/Nose/Throat oral cavity/pharynx/larynx Posterior Pharynx: clear post nasal drainage 06/22/2018 None Full Exam - General 1994 Cardiovascular auscultation of heart Rate: regular rate 06/22/2018 None Full Exam - General 1994 Constitutional general appearance Overall: well developed 05/14/2018 None Full Exam - General 1994 Constitutional general appearance Overall: in no acute distress 05/14/2018 None Full Exam - General 1994 Constitutional general appearance Overall: well nourished 05/14/2018 None Full Exam - General 1994 Eyes conjunctiva/eyelids Overall: conjunctiva clear 05/14/2018 None Full Exam - General 1994 Eyes conjunctiva/eyelids Overall: cornea clear 05/14/2018 None Full Exam - General 1994 Eyes conjunctiva/eyelids Overall: eyelids normal 05/14/2018 None Full Exam - General 1994 Eyes pupils and irises Overall: pupils equal, round, reactive to light and accomodation 05/14/2018 None Full Exam - General 1994 Ears/Nose/Throat otoscopic exam Overall: tympanic membranes clear 05/14/2018 None Full Exam - General 1994 Ears/Nose/Throat otoscopic exam Overall: external auditory canals clear 05/14/2018 None Full Exam - General 1994 Ears/Nose/Throat lips/teeth/gingiva Overall: benign lips 05/14/2018 None Full Exam - General 1994 Ears/Nose/Throat oral cavity/pharynx/larynx Overall: oral mucosa clear 05/14/2018 None Full Exam - General 1994 Respiratory respiratory effort/rhythm Overall: normal rate 05/14/2018 None Full Exam - General 1994 Respiratory respiratory effort/rhythm Overall: no retractions 05/14/2018 None Full Exam - General 1994 Respiratory auscultation Overall: breath sounds clear bilaterally 05/14/2018 None Full Exam - General 1994 Musculoskeletal head and neck Overall: head atraumatic 05/14/2018 None Full Exam - General 1994 Musculoskeletal gait and station Overall: normal station 05/14/2018 None Full Exam - General 1994 Musculoskeletal gait and station Overall: normal gait 05/14/2018 None Full Exam - General 1994 Neurologic cranial nerves Overall: crainial nerves 2 - 12 grossly intact 05/14/2018 None Full Exam - General 1994 Psychiatric orientation/consciousness Overall: oriented to person, place and time 05/14/2018 None Full Exam - General 1994 Psychiatric mood and affect Overall: normal mood and affect 05/14/2018 None Full Exam - General 1994 Psychiatric appearance Overall: well-groomed, good eye contact 05/14/2018 None Full Exam - ENT Constitutional general appearance Overall: well nourished 04/27/2018 None Full Exam - ENT Constitutional general appearance Overall: well developed 04/27/2018 None Full Exam - ENT Constitutional general appearance Overall: in no acute distress 04/27/2018 None Full Exam - ENT Eyes ocu lar motility Overall: extraocular movement intact 04/27/2018 None Full Exam - ENT Eyes ocu lar motility Overall: normal gaze alignment 04/27/2018 None Full Exam - ENT Ears/Nose/Throat otoscopic exam Overall: external auditory canals normal 04/27/2018 None Full Exam - ENT Ears/Nose/Throat otoscopic exam Overall: tympanic membranes normal 04/27/2018 None Full Exam - ENT Ears/Nose/Throat lips/teeth/gingiva Overall: benign lips 04/27/2018 None Full Exam - ENT Ears/Nose/Throat oropharynx Overall: oral mucosa clear 04/27/2018 None Full Exam - ENT Ears/Nose/Throat oropharynx Posterior Pharynx: clear post nasal drainage 04/27/2018 None Full Exam - ENT Respiratory auscultation Overall: breath sounds clear bilater ally 04/27/2018 None Full Exam - ENT Respiratory inspection Overall: normal rate 05/2018 None Full Exam - ENT Respiratory inspection Overall: no retractions 04/27/2018 None Full Exam - ENT Cardiovascular auscultation of heart Overall: normal heart sounds 04/27/2018 None Full Exam - ENT Cardiovascular auscultation of heart Overall: regular rate 04/27/2018 None Full Exam - ENT Musculoskeletal head and neck Overall: head atraumatic 04/27/2018 None Full Exam - ENT Musculoskeletal gait and station Overall: normal station 04/27/2018 None Full Exam - ENT Musculoskeletal gait and station Overall: normal gait 04/27/2018 None Full Exam - ENT Neurologic mood and affect Overall: normal affect 04/27/2018 None Full Exam - ENT Neurologic mood and affect Overall: normal mood 04/27/2018 None Full Exam - ENT Neurologic orientation Overall: oriented to person, place a nd time 04/27/2018 None Full Exam - General 1995 Constitutional general appearance Overall: well developed 04/03/2018 None Full Exam - General 1994 Constitutional general appearance Overall: in no acute distress 04/03/2018 None Full Exam - General 1994 Constitutional general appearance Overall: well nourished 04/03/2018 None Full Exam - General 1994 Eyes conjunctiva/eyelids Overall: conjunctiva clear 04/03/2018 None Full Exam - General 1994 Eyes conjunctiva/eyelids Overall: cornea clear 04/03/2018 None Full Exam - General 1994 Eyes conjunctiva/eyelids Overall: eyelids normal 04/03/2018 None Full Exam - General 1994 Ears/Nose/Throat lips/teeth/gingiva Overall: benign lips 04/03/2018 None Full Exam - General 1994 Ears/Nose/Throat oral cavity/pharynx/larynx Overall: oral mucosa clear 04/03/2018 None Full Exam - General 1994 Respiratory auscultation Overall: breath sounds clear bilaterally 04/03/2018 None Full Exam - General 1994 Respiratory respiratory effort/rhythm Overall: no retractions 04/03/2018 None Full Exam - General 1994 Respiratory respiratory effort/rhythm Overall: normal rate 04/03/2018 None Full Exam - General 1994 Cardiovascular auscultation of heart Rate: regular rate 04/03/2018 None Full Exam - General 1994 Musculoskeletal head and neck Overall: head atraumatic 04/03/2018 None Full Exam - General 1994 Neurologic cranial nerves Overall: crainial nerves 2 - 12 grossly intact 04/03/2018 None Full Exam - General 1994 Psychiatric orientation/consciousness Overall: oriented to person, place and time 04/03/2018 None Full Exam - General 1994 Psychiatric mood and affect Overall: normal mood and affect 04/03/2018 None Full Exam - General 1994 Integument inspection of skin Location: right arm 04/03/2018 None Full Exam - General 1994 Integument inspection of skin Rash/Lesions: patch 04/03/2018 None Full Exam - General 1994 Integument inspection of skin Pigmentation: erythematous 04/03/2018 None Full Exam - General 1994 Constitutional general appearance Overall: well developed 01/27/2018 None Full Exam - General 1995 Constitutional general appearance Overall: in no acute distress 01/27/2018 None Full Exam - General 1994 Constitutional general appearance Overall: well nourished 01/27/2018 None Full Exam - General 1995 Eyes conjunctiva/eyelids Overall: eyelids normal 01/27/2018 None Full Exam - General 1994 Eyes conjunctiva/eyelids Overall: cornea clear 01/27/2018 None Full Exam - General 1994 Eyes conjunctiva/eyelids Overall: conjunctiva clear 01/27/2018 None Full Exam - General 1994 Ears/Nose/Throat lips/teeth/gingiva Overall: benign lips 01/27/2018 None Full Exam - General 1994 Ears/Nose/Throat oral cavity/pharynx/larynx Overall: oral mucosa clear 01/27/2018 None Full Exam - General 1994 Respiratory respiratory effort/rhythm Overall: normal rate 01/27/2018 None Full Exam - General 1994 Respiratory respiratory effort/rhythm Overall: no retractions 01/27/2018 None Full Exam - General 1994 Respiratory auscultation Overall: breath sounds clear bilaterally 01/27/2018 None Full Exam - General 1994 Cardiovascular auscultation of heart Rate: regular rate 01/27/2018 None Full Exam - General 1994 Musculoskeletal head and neck Overall: head atraumatic 01/27/2018 None Full Exam - General 1994 Neurologic cranial nerves Overall: crainial nerves 2 - 12 grossly intact 01/27/2018 None Full Exam - General 1994 Psychiatric orientation/consciousness Overall: oriented to person, place and time 01/27/2018 None Full Exam - General 1994 Psychiatric mood and affect Overall: normal mood and affect 01/27/2018 None Full Exam - General 1994 Constitutional general appearance Overall: well developed 01/21/2018 None Full Exam - General 1994 Constitutional general appearance Overall: in no acute distress 01/21/2018 None Full Exam - General 1994 Constitutional general appearance Overall: well nourished 01/21/2018 None Full Exam - General 1994 Eyes conjunctiva/eyelids Overall: conjunctiva clear 01/21/2018 None Full Exam - General 1994 Eyes conjunctiva/eyelids Overall: eyelids normal 01/21/2018 None Full Exam - General 1994 Ears/Nose/Throat lips/teeth/gingiva Overall: benign lips 01/21/2018 None Full Exam - General 1994 Respiratory respiratory effort/rhythm Overall: no retractions 01/21/2018 None Full Exam - General 1994 Respiratory respiratory effort/rhythm Overall: normal rate 01/21/2018 None Full Exam - General 1994 Musculoskeletal head and neck Overall: head atraumatic 01/21/2018 None Full Exam - General 1994 Neurologic cranial nerves Overall: crainial nerves 2 - 12 grossly intact 01/21/2018 None Full Exam - General 1994 Psychiatric orientation/consciousness Overall: oriented to person, place and time 01/21/2018 None Full Exam - General 1994 Psychiatric mood and affect Overall: normal mood and affect 01/21/2018 None Full Exam - General 1994 Psychiatric appearance Overall: well-groomed, good eye contact 01/21/2018 None Full Exam - General 1994 Constitutional general appearance Overall: well developed 01/06/2018 None Full Exam - General 1994 Constitutional general appearance Overall: in no acute distress 01/06/2018 None Full Exam - General 1994 Constitutional general appearance Overall: well nourished 01/06/2018 None Full Exam - General 1994 Eyes conjunctiva/eyelids Overall: conjunctiva clear 01/06/2018 None Full Exam - General 1994 Eyes conjunctiva/eyelids Overall: cornea clear 01/06/2018 None Full Exam - General 1994 Eyes conjunctiva/eyelids Overall: eyelids normal 01/06/2018 None Full Exam - General 1994 Ears/Nose/Throat lips/teeth/gingiva Overall: benign lips 01/06/2018 None Full Exam - General 1994 Respiratory respiratory effort/rhythm Overall: no retractions 01/06/2018 None Full Exam - General 1994 Respiratory respiratory effort/rhythm Overall: normal rate 01/06/2018 None Full Exam - General 1994 Musculoskeletal head and neck Overall: head atraumatic 01/06/2018 None Full Exam - General 1994 Neurologic cranial nerves Overall: crainial nerves 2 - 12 grossly intact 01/06/2018 None Full Exam - General 1994 Psychiatric orientation/consciousness Overall: oriented to person, place and time 01/06/2018 None Full Exam - General 1994 Psychiatric mood and affect Overall: normal mood and affect 01/06/2018 None Full Exam - General 1994 Psychiatric appearance Overall: well-groomed, good eye contact 01/06/2018 None Full Exam - General 1994 Constitutional general appearance Overall: well developed 12/31/2017 None Full Exam - General 1994 Constitutional general appearance Overall: in no acute distress 12/31/2017 None Full Exam - General 1994 Constitutional general appearance Overall: well nourished 12/31/2017 None Full Exam - General 1994 Eyes conjunctiva/eyelids Overall: conjunctiva clear 12/31/2017 None Full Exam - General 1994 Eyes conjunctiva/eyelids Overall: cornea clear 12/31/2017 None Full Exam - General 1994 Eyes conjunctiva/eyelids Overall: eyelids normal 12/31/2017 None Full Exam - General 1994 Eyes pupils and irises Overall: pupils equal, round, reactive to light and accomodation 12/31/2017 None Full Exam - General 1994 Ears/Nose/Throat lips/teeth/gingiva Overall: benign lips 12/31/2017 None Full Exam - General 1994 Ears/Nose/Throat oral cavity/pharynx/larynx Overall: oral mucosa clear 12/31/2017 None Full Exam - General 1994 Respiratory auscultation Overall: breath sounds clear bilaterally 12/31/2017 None Full Exam - General 1994 Respiratory respiratory effort/rhythm Overall: no retractions 12/31/2017 None Full Exam - General 1994 Respiratory respiratory effort/rhythm Overall: normal rate 12/31/2017 None Full Exam - General 1994 Cardiovascular auscultation of heart Overall: regular rate 12/31/2017 None Full Exam - General 1994 Cardiovascular auscultation of heart Overall: normal heart sounds 12/31/2017 None Full Exam - General 1994 Abdomen abdominal exam Overall: no tenderness 12/31/2017 None Full Exam - General 1994 Abdomen abdominal exam Overall: normal bowel sounds 12/31/2017 None Full Exam - General 1994 Musculoskeletal gait and station Overall: normal gait 12/31/2017 None Full Exam - General 1994 Musculoskeletal gait and station Overall: normal station 12/31/2017 None Full Exam - General 1994 Musculoskeletal head and neck Overall: head atraumatic 12/31/2017 None Full Exam - General 1994 Neurologic cranial nerves Overall: crainial nerves 2 - 12 grossly intact 12/31/2017 None Full Exam - General 1994 Psychiatric orientation/consciousness Overall: oriented to person, place and time 12/31/2017 None Full Exam - General 1994 Psychiatric mood and affect Overall: normal mood and affect 12/31/2017 None Full Exam - General 1994 Psychiatric appearance Overall: well-groomed, good eye contact 12/31/2017 None Full Exam - General 1994 Constitutional general appearance Overall: well developed 10/08/2017 None Full Exam - General 1994 Constitutional general appearance Overall: in no acute distress 10/08/2017 None Full Exam - General 1994 Constitutional general appearance Overall: well nourished 10/08/2017 None Full Exam - General 1994 Eyes conjunctiva/eyelids Overall: conjunctiva clear 10/08/2017 None Full Exam - General 1994 Eyes conjunctiva/eyelids Overall: cornea clear 10/08/2017 None Full Exam - General 1994 Eyes conjunctiva/eyelids Overall: eyelids normal 10/08/2017 None Full Exam - General 1994 Eyes pupils and irises Overall: pupils equal, round, reactive to light and accomodation 10/08/2017 None Full Exam - General 1994 Ears/Nose/Throat lips/teeth/gingiva Overall: benign lips 10/08/2017 None Full Exam - General 1994 Ears/Nose/Throat oral cavity/pharynx/larynx Overall: oral mucosa clear 10/08/2017 None Full Exam - General 1994 Respiratory auscultation Overall: breath sounds clear bilaterally 10/08/2017 None Full Exam - General 1994 Respiratory respiratory effort/rhythm Overall: no retractions 10/08/2017 None Full Exam - General 1994 Respiratory respiratory effort/rhythm Overall: normal rate 10/08/2017 None Full Exam - General 1994 Cardiovascular extremities Edema present: pitting 10/08/2017 None Full Exam - General 1994 Cardiovascular extremities Edema present: severity 1+ - 4+: 1+ 10/08/2017 None Full Exam - General 1994 Cardiovascular extremities Edema present: bilateral 10/08/2017 None Full Exam - General 1994 Cardiovascular extremities Edema present: to leg 10/08/2017 None Full Exam - General 1994 Cardiovascular auscultation of heart Overall: regular rate 10/08/2017 None Full Exam - General 1994 Cardiovascular auscultation of heart Overall: normal heart sounds 10/08/2017 None Full Exam - General 1994 Abdomen abdominal exam Overall: no tenderness 10/08/2017 None Full Exam - General 1994 Abdomen abdominal exam Overall: normal bowel sounds 10/08/2017 None Full Exam - General 1994 Musculoskeletal gait and station Overall: normal gait 10/08/2017 None Full Exam - General 1994 Musculoskeletal gait and station Overall: normal station 10/08/2017 None Full Exam - General 1994 Musculoskeletal head and neck Overall: head atraumatic 10/08/2017 None Full Exam - General 1994 Integument inspection of skin Location: scalp 10/08/2017 [place] - right judaism, mid fo rehead/scalp, left posterior neck - cryotherapy to area, pt tolerated procedure well Full Exam - General 1994 Neurologic cranial nerves Overall: crainial nerves 2 - 12 grossly intact 10/08/2017 None Full Exam - General 1994 Psychiatric orientation/consciousness Overall: oriented to person, place and time 10/08/2017 None Full Exam - General 1994 Psychiatric mood and affect Overall: normal mood and affect 10/08/2017 None Full Exam - General 1994 Psychiatric appearance Overall: well-groomed, good eye contact 10/08/2017 None Full Exam - General 1994 Constitutional general appearance Overall: well developed 08/27/2017 None Full Exam - General 1994 Constitutional general appearance Overall: in no acute distress 08/27/2017 None Full Exam - General 1994 Constitutional general appearance Overall: well nourished 08/27/2017 None Full Exam - General 1994 Eyes conjunctiva/eyelids Overall: conjunctiva clear 08/27/2017 None Full Exam - General 1994 Eyes conjunctiva/eyelids Overall: cornea clear 08/27/2017 None Full Exam - General 1994 Eyes conjunctiva/eyelids Overall: eyelids normal 08/27/2017 None Full Exam - General 1994 Eyes pupils and irises Overall: pupils equal, round, reactive to light and accomodation 08/27/2017 None Full Exam - General 1994 Ears/Nose/Throat lips/teeth/gingiva Overall: benign lips 08/27/2017 None Full Exam - General 1994 Ears/Nose/Throat oral cavity/pharynx/larynx Overall: oral mucosa clear 08/27/2017 None Full Exam - General 1994 Respiratory auscultation Overall: breath sounds clear bilaterally 08/27/2017 None Full Exam - General 1994 Respiratory respiratory effort/rhythm Overall: no retractions 08/27/2017 None Full Exam - General 1994 Respiratory respiratory effort/rhythm Overall: normal rate 08/27/2017 None Full Exam - General 1994 Cardiovascular extremities Edema present: pitting 08/27/2017 None Full Exam - General 1994 Cardiovascular extremities Edema present: severity 1+ - 4+: 1+ 08/27/2017 None Full Exam - General 1994 Cardiovascular extremities Edema present: bilateral 08/27/2017 None Full Exam - General 1994 Cardiovascular extremities Edema present: to leg 08/27/2017 None Full Exam - General 1994 Cardiovascular auscultation of heart Overall: regular rate 08/27/2017 None Full Exam - General 1994 Cardiovascular auscultation of heart Overall: normal heart sounds 08/27/2017 None Full Exam - General 1994 Abdomen abdominal exam Overall: no tenderness 08/27/2017 None Full Exam - General 1994 Abdomen abdominal exam Overall: normal bowel sounds 08/27/2017 None Full Exam - General 1994 Musculoskeletal gait and station Overall: normal gait 08/27/2017 None Full Exam - General 1994 Musculoskeletal gait and station Overall: normal station 08/27/2017 None Full Exam - General 1994 Musculoskeletal head and neck Overall: head atraumatic 08/27/2017 None Full Exam - General 1994 Neurologic cranial nerves Overall: crainial nerves 2 - 12 grossly intact 08/27/2017 None Full Exam - General 1994 Psychiatric orientation/consciousness Overall: oriented to person, place and time 08/27/2017 None Full Exam - General 1994 Psychiatric mood and affect Overall: normal mood and affect 08/27/2017 None Full Exam - General 1994 Psychiatric appearance Overall: well-groomed, good eye contact 08/27/2017 None Full Exam - General 1994 Integument inspection of skin Location: scalp 08/27/2017 [place] - right judaism, mid fo rehead/scalp - cryotherapy to area, pt tolerated procedure well Full Exam - General 1994 Constitutional general appearance Overall: well developed 06/25/2017 None Full Exam - General 1994 Constitutional general appearance Overall: in no acute distress 06/25/2017 None Full Exam - General 1994 Constitutional general appearance Overall: well nourished 06/25/2017 None Full Exam - General 1994 Eyes conjunctiva/eyelids Overall: conjunctiva clear 06/25/2017 None Full Exam - General 1994 Eyes conjunctiva/eyelids Overall: eyelids normal 06/25/2017 None Full Exam - General 1994 Eyes pupils and irises Overall: pupils equal, round, reactive to light and accomodation 06/25/2017 None Full Exam - General 1994 Ears/Nose/Throat lips/teeth/gingiva Overall: benign lips 06/25/2017 None Full Exam - General 1994 Ears/Nose/Throat oral cavity/pharynx/larynx Overall: oral mucosa clear 06/25/2017 None Full Exam - General 1994 Respiratory auscultation Overall: breath sounds clear bilaterally 06/25/2017 None Full Exam - General 1994 Respiratory respiratory effort/rhythm Overall: no retractions 06/25/2017 None Full Exam - General 1994 Respiratory respiratory effort/rhythm Overall: normal rate 06/25/2017 None Full Exam - General 1994 Cardiovascular extremities Edema present: pitting 06/25/2017 None Full Exam - General 1994 Cardiovascular extremities Edema present: severity 1+ - 4+: 1+ 06/25/2017 None Full Exam - General 1994 Cardiovascular extremities Edema present: bilateral 06/25/2017 None Full Exam - General 1994 Cardiovascular extremities Edema present: to leg 06/25/2017 None Full Exam - General 1994 Cardiovascular auscultation of heart Overall: regular rate 06/25/2017 None Full Exam - General 1994 Cardiovascular auscultation of heart Overall: normal heart sounds 06/25/2017 None Full Exam - General 1994 Abdomen abdominal exam Overall: no tenderness 06/25/2017 None Full Exam - General 1994 Abdomen abdominal exam Overall: normal bowel sounds 06/25/2017 None Full Exam - General 1994 Musculoskeletal gait and station Overall: normal gait 06/25/2017 None Full Exam - General 1994 Musculoskeletal gait and station Overall: normal station 06/25/2017 None Full Exam - General 1994 Musculoskeletal head and neck Overall: head atraumatic 06/25/2017 None Full Exam - General 1994 Neurologic cranial nerves Overall: crainial nerves 2 - 12 grossly intact 06/25/2017 None Full Exam - General 1994 Psychiatric orientation/consciousness Overall: oriented to person, place and time 06/25/2017 None Full Exam - General 1994 Psychiatric mood and affect Overall: normal mood and affect 06/25/2017 None Full Exam - General 1994 Psychiatric appearance Overall: well-groomed, good eye contact 06/25/2017 None Full Exam - General 1994 Eyes conjunctiva/eyelids Overall: cornea clear 06/25/2017 None Full Exam - General 1994 Constitutional general appearance Overall: well developed 06/10/2017 None Full Exam - General 1994 Constitutional general appearance Overall: in no acute distress 06/10/2017 None Full Exam - General 1994 Constitutional general appearance Overall: well nourished 06/10/2017 None Full Exam - General 1994 Eyes conjunctiva/eyelids Overall: conjunctiva clear 06/10/2017 None Full Exam - General 1994 Eyes conjunctiva/eyelids Overall: eyelids normal 06/10/2017 None Full Exam - General 1994 Eyes pupils and irises Overall: pupils equal, round, reactive to light and accomodation 06/10/2017 None Full Exam - General 1994 Ears/Nose/Throat otoscopic exam Overall: external auditory canals clear 06/10/2017 None Full Exam - General 1994 Ears/Nose/Throat otoscopic exam Overall: tympanic membranes clear 06/10/2017 None Full Exam - General 1994 Ears/Nose/Throat lips/teeth/gingiva Overall: benign lips 06/10/2017 None Full Exam - General 1994 Ears/Nose/Throat oral cavity/pharynx/larynx Overall: oral mucosa clear 06/10/2017 None Full Exam - General 1994 Respiratory auscultation Overall: breath sounds clear bilaterally 06/10/2017 None Full Exam - General 1994 Respiratory respiratory effort/rhythm Overall: no retractions 06/10/2017 None Full Exam - General 1994 Respiratory respiratory effort/rhythm Overall: normal rate 06/10/2017 None Full Exam - General 1994 Cardiovascular extremities Edema present: pitting 06/10/2017 None Full Exam - General 1994 Cardiovascular extremities Edema present: severity 1+ - 4+: 1+ 06/10/2017 None Full Exam - General 1994 Cardiovascular extremities Edema present: bilateral 06/10/2017 None Full Exam - General 1994 Cardiovascular extremities Edema present: to leg 06/10/2017 None Full Exam - General 1994 Cardiovascular auscultation of heart Overall: regular rate 06/10/2017 None Full Exam - General 1994 Cardiovascular auscultation of heart Overall: normal heart sounds 06/10/2017 None Full Exam - General 1994 Abdomen abdominal exam Overall: no tenderness 06/10/2017 None Full Exam - General 1994 Abdomen abdominal exam Overall: normal bowel sounds 06/10/2017 None Full Exam - General 1994 Lymphatic neck nodes Overall: anterior cervical chain benign 06/10/2017 None Full Exam - General 1994 Lymphatic neck nodes Overall: posterior cervical chain benign 06/10/2017 None Full Exam - General 1994 Musculoskeletal gait and station Overall: normal gait 06/10/2017 None Full Exam - General 1994 Musculoskeletal gait and station Overall: normal station 06/10/2017 None Full Exam - General 1994 Musculoskeletal head and neck Overall: head atraumatic 06/10/2017 None Full Exam - General 1994 Neurologic cranial nerves Overall: crainial nerves 2 - 12 grossly intact 06/10/2017 None Full Exam - General 1994 Psychiatric orientation/consciousness Overall: oriented to person, place and time 06/10/2017 None Full Exam - General 1994 Psychiatric mood and affect Overall: normal mood and affect 06/10/2017 None Full Exam - General 1994 Psychiatric appearance Overall: well-groomed, good eye contact 06/10/2017 None Full Exam - General 1994 Constitutional general appearance Overall: well developed 05/20/2017 None Full Exam - General 1994 Constitutional general appearance Overall: in no acute distress 05/20/2017 None Full Exam - General 1994 Constitutional general appearance Overall: well nourished 05/20/2017 None Full Exam - General 1994 Eyes conjunctiva/eyelids Overall: conjunctiva clear 05/20/2017 None Full Exam - General 1994 Eyes conjunctiva/eyelids Overall: eyelids normal 05/20/2017 None Full Exam - General 1994 Eyes pupils and irises Overall: pupils equal, round, reactive to light and accomodation 05/20/2017 None Full Exam - General 1994 Ears/Nose/Throat otoscopic exam Overall: tympanic membranes clear 05/20/2017 None Full Exam - General 1994 Ears/Nose/Throat otoscopic exam Overall: external auditory canals clear 05/20/2017 None Full Exam - General 1994 Ears/Nose/Throat lips/teeth/gingiva Overall: benign lips 05/20/2017 None Full Exam - General 1994 Ears/Nose/Throat oral cavity/pharynx/larynx Overall: oral mucosa clear 05/20/2017 None Full Exam - General 1994 Ears/Nose/Throat external ear Auricle: lesion 05/20/2017 chronic Full Exam - General 1994 Respiratory respiratory effort/rhythm Overall: no retractions 05/20/2017 None Full Exam - General 1994 Respiratory respiratory effort/rhythm Overall: normal rate 05/20/2017 None Full Exam - General 1994 Respiratory auscultation Overall: breath sounds clear bilaterally 05/20/2017 None Full Exam - General 1994 Cardiovascular auscultation of heart Overall: normal heart sounds 05/20/2017 None Full Exam - General 1994 Cardiovascular auscultation of heart Overall: regular rate 05/20/2017 None Full Exam - General 1994 Cardiovascular extremities Edema present: pitting 05/20/2017 None Full Exam - General 1994 Cardiovascular extremities Edema present: severity 1+ - 4+: 1+ 05/20/2017 None Full Exam - General 1994 Cardiovascular extremities Edema present: bilateral 05/20/2017 None Full Exam - General 1994 Cardiovascular extremities Edema present: to leg 05/20/2017 None Full Exam - General 1994 Abdomen abdominal exam Overall: normal bowel sounds 05/20/2017 None Full Exam - General 1994 Abdomen abdominal exam Overall: no tenderness 05/20/2017 None Full Exam - General 1994 Lymphatic neck nodes Overall: posterior cervical chain benign 05/20/2017 None Full Exam - General 1994 Lymphatic neck nodes Overall: anterior cervical chain benign 05/20/2017 None Full Exam - General 1994 Musculoskeletal head and neck Overall: head atraumatic 05/20/2017 None Full Exam - General 1994 Musculoskeletal gait and station Overall: normal gait 05/20/2017 None Full Exam - General 1994 Musculoskeletal gait and station Overall: normal station 05/20/2017 None Full Exam - General 1994 Neurologic cranial nerves Overall: crainial nerves 2 - 12 grossly intact 05/20/2017 None Full Exam - General 1994 Psychiatric orientation/consciousness Overall: oriented to person, place and time 05/20/2017 None Full Exam - General 1994 Psychiatric mood and affect Overall: normal mood and affect 05/20/2017 None Full Exam - General 1994 Psychiatric appearance Overall: well-groomed, good eye contact 05/20/2017 None Procedures Procedure Codes Date TRIAMCINOLONE ACET I [place] NOS CPT-4: J3301 10/15/2018 THER/PROPH/DIAG INJ SC/IM CPT-4: 61790 10/15/2018 ADMIN INFLUENZA VIRU S VAC CPT-4: G0008 06/24/2018 FLU VACC PRSV FREE I NC ANTIG CPT-4: 01898 06/24/2018 GLUC MONITOR CONT PH YS I&R CPT-4: 52538 01/27/2018 PPPS, SUBSEQ VISIT CPT- 4: G0439 01/21/2018 GLUCOSE MONITORING CONT CPT-4: 00703 01/06/2018 ADMIN INFLUENZA VIRU S VAC CPT-4: G0008 06/09/2017 FLU VACC PRSV FREE I NC ANTIG CPT-4: 21677 06/09/2017 Vital Signs Date Vital 02/22/2019 Blood Pressure 1: 146/74 Code: 8480-6 BMI: 33.1 Code: 71098-3 Heart Rate 1: 62 bpm Height: 5'8" SpO2: 97% Weight: 218 lbs 02/19/2019 Blood Pressure 1: 136/78 Code: 8480-6 Heart Rate 1: 70 bpm Height: SpO2: 98% Weight: 01/25/2019 Blood Pressure 1: 140/74 Code: 8480-6 BMI: 32.8 Code: 92105-2 Heart Rate 1: 60 bpm Height: 5'8" SpO2: 96% Weight: 216 lbs 11/16/2018 Blood Pressure 1: 154/90 Code: 8480-6 BMI: 33.1 Code: 84179-6 Heart Rate 1: 84 bpm Height: 5'8" SpO2: 96% Weight: 218 lbs 10/15/2018 Blood Pressure 1: 140/70 Code: 8480-6 BMI: 33.5 Code: 89698-3 Heart Rate 1: 72 bpm Height: 5'8" SpO2: 98% Weight: 220 lbs 08/05/2018 Blood Pressure 1: 132/56 Code: 8480-6 BMI: 34.5 Code: 50915-7 Heart Rate 1: 65 bpm Height: 5'8" SpO2: 95% Weight: 227 lbs 06/22/2018 Blood Pressure 1: 144/86 Code: 8480-6 BMI: 36.0 Code: 10403-0 Heart Rate 1: 74 bpm Height: 5'8" SpO2: 98% Weight: 237 lbs 05/14/2018 Blood Pressure 1: 132/72 Code: 8480-6 Height: Weight: 04/27/2018 Blood Pressure 1: 148/78 Code: 8480-6 BMI: 35.6 Code: 76042-1 Heart Rate 1: 77 bpm Height: 5'8" SpO2: 97% Weight: 234 lbs 04/03/2018 Blood Pressure 1: 156/80 Code: 8480-6 BMI: 35.4 Code: 37186-3 Heart Rate 1: 70 bpm Height: 5'8" SpO2: 97% Weight: 233 lbs 01/27/2018 BMI: 35.6 Code: 86825-4 Heart Rate 1: 86 bpm Height: 5'8" SpO2: 98% Weight: 234 lbs 01/21/2018 Heigh t: Weight: 01/06/2018 Heigh t: Weight: 12/31/2017 Blood Pressure 1: 140/86 Code: 8480-6 BMI: 34.2 Code: 43919-0 Heart Rate 1: 80 bpm Height: 5'8" SpO2: 98% Weight: 225 lbs 10/08/2017 Blood Pressure 1: 152/74 Code: 8480-6 BMI: 34.2 Code: 48404-2 Heart Rate 1: 67 bpm Height: 5'8" SpO2: 98% Weight: 225 lbs 08/27/2017 Blood Pressure 1: 144/82 Code: 8480-6 BMI: 34.2 Code: 65781-8 Heart Rate 1: 70 bpm Height: 5'8" SpO2: 98% Weight: 225 lbs 06/10/2017 Blood Pressure 1: 150/84 Code: 8480-6 BMI: 35.0 Code: 80901-7 Heart Rate 1: 67 bpm Height: 5'8" SpO2: 98% Weight: 230 lbs 05/20/2017 Blood Pressure 1: 146/76 Code: 8480-6 BMI: 35.3 Code: 51728-0 Heart Rate 1: 70 bpm Height: 5'8" SpO2: 98% Weight: 232 lbs Functional Status No Functional Status data History of Present Illness Symptom Name Status Resu lt Effective Date Notes Quality chronic 02/22/2019 None Alleviating Factors me dication 02/22/2019 None Alleviating Factors diet 02/22/2019 None Alleviating Factors ex ercise 02/22/2019 None Nutrition ADA diet 02/22/2019 None Pertinent Findings Den ies dyspnea 02/22/2019 None Location on the right leg 02/22/2019 01/22/2019 Onset and Resolution r esolved 02/22/2019 None Pertinent Findings stefania thema 02/22/2019 None Location on the right leg 02/19/2019 01/22/2019 Onset and Resolution r esolved 02/19/2019 None Pertinent Findings stefania thema 02/19/2019 None Location on the right leg 01/25/2019 None Onset of Symptom 3 day s ago 01/25/2019 None Quality chronic 11/16/2018 None Alleviating Factors me dication 11/16/2018 None Alleviating Factors diet 11/16/2018 None Alleviating Factors ex ercise 11/16/2018 None Nutrition ADA diet 11/16/2018 None Pertinent Findings Den ies dyspnea 11/16/2018 None Location maxillary sin uses 10/15/2018 None Quality acute 10/15/2018 None Onset and Resolution s udden in onset 10/15/2018 None Pertinent Findings Den ies fever 10/15/2018 None Pertinent Findings cough 10/15/2018 None Location in the lung 10/15/2018 None Quality acute 10/15/2018 None Pertinent Findings Den ies dyspnea 10/15/2018 None Quality chronic 08/05/2018 None Alleviating Factors me dication 08/05/2018 None Alleviating Factors diet 08/05/2018 None Alleviating Factors ex ercise 08/05/2018 None Nutrition ADA diet 08/05/2018 None Pertinent Findings Den ies dyspnea 08/05/2018 None vaccination against influenza Location deltoid-Lt 06/24/2018 None diabetes mellitus Quality chronic 06/22/2018 None diabetes mellitus Alleviating Factors medication 06/22/2018 None diabetes mellitus Alleviating Factors diet 06/22/2018 None diabetes mellitus Alleviating Factors exercise 06/22/2018 None diabetes mellitus Nutrition ADA diet 06/22/2018 None diabetes mellitus Pertinent Findings Denies dyspnea 06/22/2018 None vision change Location o n both eyes 05/14/2018 None vision change Quality di plopia 05/14/2018 None vision change Quality in termittent 05/14/2018 None vision change Onset and Resolution ongoing 05/14/2018 None vision change Limitation on Activities does not limit activities 05/14/2018 None vision change Severity m ild 05/14/2018 None vision change Length of Episodes 1 minutes 05/14/2018 None vision change Triggers n o known associated factors 05/14/2018 None vision change Pertinent Findings Denies dyspnea 05/14/2018 None dizziness Quality imbala nce 04/27/2018 None dizziness Quality loss o f balance 04/27/2018 None dizziness Quality sense of motion 04/27/2018 None dizziness Onset and Resolution sudden in onset 04/27/2018 None dizziness Onset of Symptom 3 weeks ago 04/27/2018 None vision change Location i n both eyes 04/27/2018 None vision change Onset and Resolution sudden in onset 04/27/2018 None diabetes mellitus Quality chronic 04/03/2018 None diabetes mellitus Alleviating Factors medication 04/03/2018 None diabetes mellitus Alleviating Factors diet 04/03/2018 None diabetes mellitus Alleviating Factors exercise 04/03/2018 None diabetes mellitus Nutrition ADA diet 04/03/2018 None diabetes mellitus Pertinent Findings Denies dyspnea 04/03/2018 None diabetes mellitus Quality chronic 01/27/2018 None diabetes mellitus Alleviating Factors medication 01/27/2018 None diabetes mellitus Alleviating Factors diet 01/27/2018 None diabetes mellitus Alleviating Factors exercise 01/27/2018 None diabetes mellitus Nutrition ADA diet 01/27/2018 None diabetes mellitus Pertinent Findings Denies dyspnea 01/27/2018 None Annual Medicare Wellness Exam Alcohol Use does not drink any alcohol 01/21/2018 None Annual Medicare Wellness Exam Aspirin Use yes 01/21/2018 81 Annual Medicare Wellness Exam Blood Pressure (self reported) borderline (120/80 - 139/89) 018 None Annual Medicare Wellness Exam Blood Glucose (self reported) borderline high (100-125) 01/21/2018 None Annual Medicare Wellness Exam Choles terol (self reported) don't know 01/21/2018 No ne Annual Medicare Wellness Exam Depres jesus (last 6 months) some of the time 01/21/2018 None Annual Medicare Wellness Exam Depres jesus or Hopelessness almost never 01/21/2018 None Annual Medicare Wellness Exam Descri be Your Health very good 01/21/2018 Non e Annual Medicare Wellness Exam Exerci se Habits exercises 7 days per week 01/21/2018 None Annual Medicare Wellness Exam Handli ng Stress usually regino effectively 01/21/2018 None Annual Medicare Wellness Exam Hours of Sleep 5-6 01/21/2018 None Annual Medicare Wellness Exam Intera ction with Friends yes 01/21/2018 None Annual Medicare Wellness Exam Intere sts & Pleasure most of the time 01/21/2018 None Annual Medicare Wellness Exam Life S atisfaction satisfied 01/21/2018 Non e Annual Medicare Wellness Exam Motor Vehicle Safety always fastens seat belt: y 01/22/20 18 None Annual Medicare Wellness Exam Nutrition servings of vegetables / fruit per day: 1-2 01/21/2018 None Annual Medicare Wellness Exam Smokin g and Tobacco Use non smoker 01/21/2018 No ne Annual Medicare Wellness Exam Social & Emotional Support usually 01/21/2018 None Annual Medicare Wellness Exam Stress almost never 01/21/2018 None Annual Medicare Wellness Exam Sun Exposure protects skin when outdoors: n 01/21/2018 None diabetes mellitus Quality chronic 01/06/2018 None diabetes mellitus Severity moderate 01/06/2018 None diabetes mellitus Test results Pt checking blood glucose readings, did not bring results to clinic 01/06/2018 None diabetes mellitus Pertinent Findings Denies dyspnea 01/06/2018 None diabetes mellitus Quality worsening 01/06/2018 None diabetes mellitus Significant Medications insulin 01/06/2018 None diabetes mellitus Pertinent Findings dizziness 01/06/2018 None diabetes mellitus Onset of Symptom onset as an adult 01/06/2018 None diabetes mellitus Quality chronic 12/31/2017 None diabetes mellitus Alleviating Factors medication 12/31/2017 None diabetes mellitus Exacerbating Factors diet 12/31/2017 None diabetes mellitus Nutrition ADA diet 12/31/2017 None diabetes mellitus Pertinent Findings Denies dyspnea 12/31/2017 None diabetes mellitus Quality chronic 10/08/2017 None diabetes mellitus Alleviating Factors medication 10/08/2017 None diabetes mellitus Exacerbating Factors diet 10/08/2017 None diabetes mellitus Nutrition ADA diet 10/08/2017 None diabetes mellitus Pertinent Findings Denies dyspnea 10/08/2017 None diabetes mellitus Quality chronic 08/27/2017 None diabetes mellitus Alleviating Factors medication 08/27/2017 None diabetes mellitus Exacerbating Factors diet 08/27/2017 None diabetes mellitus Nutrition ADA diet 08/27/2017 None diabetes mellitus Pertinent Findings Denies dyspnea 08/27/2017 None diabetes mellitus Quality chronic 06/25/2017 None diabetes mellitus Alleviating Factors medication 06/25/2017 None diabetes mellitus Exacerbating Factors diet 06/25/2017 None diabetes mellitus Nutrition ADA diet 06/25/2017 None diabetes mellitus Pertinent Findings Denies dyspnea 06/25/2017 None diabetes mellitus Quality chronic 06/10/2017 None diabetes mellitus Pertinent Findings dyspnea 06/10/2017 "sometimes" diabetes mellitus Quality non-insulin dependent 06/10/2017 None diabetes mellitus Test results Pt checking blood glucose at home, see scanned readings 06/10/2017 None diabetes mellitus Glucose monitoring daily 06/10/2017 None diabetes mellitus Glucose monitoring fasting 06/10/2017 None diabetes mellitus Alleviating Factors medication 06/10/2017 None diabetes mellitus Exacerbating Factors diet 06/10/2017 None diabetes mellitus Pertinent Findings Denies dizziness 06/10/2017 None diabetes mellitus Pertinent Findings Denies nausea 06/10/2017 None hypertension Quality farheen herminio hypertension 06/10/2017 None hypertension Onset and Resolution ongoing 06/10/2017 None hypertension Onset of Symptom during adulthood 06/10/2017 None hypertension Blood Pressure Values pt checking blood pressure - see scanned document 06/10/2017 None hypertension Alleviating Factors medication 06/10/2017 None hypertension Pertinent Findings edema 06/10/2017 "a little for a long time " hypertension Quality chr onic 05/20/2017 None hypertension Onset and Resolution ongoing 05/20/2017 None hypertension Blood Pressure Values patient checking blood pressure at home - did not bring in readings 05/20/2017 None hypertension Severity no t consistently severe symptoms, the symptoms fluctuate from no symptoms to anxiety and headaches 05/20/2017 None hypertension Pertinent Findings Denies dyspnea 05/20/2017 None hypertension Pertinent Findings Denies dizziness 05/20/2017 None diabetes mellitus Quality chronic 05/20/2017 None diabetes mellitus Test results Pt checking blood glucose readings, did not bring results to clinic 05/20/2017 None diabetes mellitus Glucose monitoring daily 05/20/2017 None diabetes mellitus Pertinent Findings Denies dyspnea 05/20/2017 None Advance Directives No Advance Directive data Encounters Encounter Performer Fritza tiantonio Codes Date EST. PATIENT, LEVEL IV Diagnosis: Type 2 diabetes mellitus with hyperglycemia[ICD10: E11.65] Diagnosis: Essential (primary) hypertension[ICD10: I10] Laney Guerrero MD, [facility] CPT-4: 20651 02/22/2019 [id number] EST. PATIENT, LEVEL III Diagnosis: Cellulitis of right lower limb[ICD10: L03.115] Diagnosis: Bitten or stung by nonvenomous insect and other nonvenomous arthropods, subsequent encounter[ICD10: W57.XXXD] Laney Guerrero MD, [facility] CPT-4: 53335 02/19/2019 [id number] EST. PATIENT, LEVEL III Diagnosis: Cellulitis of right lower limb[ICD10: L03.115] Diagnosis: Bitten or stung by nonvenomous insect and other nonvenomous arthropods, initial encounter[ICD10: W57.XXXA] Laney Guerrero MD, [facility] CPT-4: 82875 01/25/2019 [id number] EST. PATIENT, LEVEL III Diagnosis: Type 2 diabetes mellitus with hyperglycemia[ICD10: E11.65] Diagnosis: Essential (primary) hypertension[ICD10: I10] Laney Guerrero MD, [facility] CPT-4: 01475 11/16/2018 [id number] EST. PATIENT, LEVEL IV Diagnosis: Other acute sinusitis[ICD10: J01.80] Diagnosis: Other allergic rhinitis[ICD10: J30.89] Laney Guerrero MD, [facility] CPT-4: 95578 10/15/2018 [id number] EST. PATIENT, LEVEL III Diagnosis: Type 2 diabetes mellitus with hyperglycemia[ICD10: E11.65] aLney Guerrero MD, [facility] CPT-4: 88873 08/05/2018 [id number] EST. PATIENT, LEVEL III Diagnosis: Type 2 diabetes mellitus with hyperglycemia[ICD10: E11.65] Laney Guerrero MD, [facility] CPT-4: 21516 06/22/2018 [id number] EST. PATIENT, LEVEL IV Diagnosis: Diplopia[ICD10: H53.2] Diagnosis: Other specified anemias[ICD10: D64.89] Laney Guerrero MD, [facility] CPT-4: 81775 05/14/2018 [id number] EST. PATIENT, LEVEL III Diagnosis: Benign paroxysmal vertigo, bilateral[ICD10: H81.13] Diagnosis: Other allergic rhinitis[ICD10: J30.89] Laney Guerrero MD, [facility] CPT-4: 55618 04/27/2018 11391 EST. PATIENT, LEVEL III Diagnosis: Type 2 diabetes mellitus with hyperglycemia[ICD10: E11.65] Diagnosis: Other fatigue[ICD10: R53.83] Diagnosis: Other malaise[ICD10: R53.81] Diagnosis: Bitten or stung by nonvenomous insect and other nonvenomous arthropods, initial encounter[ICD10: W57.XXXA] Diagnosis: Cellulitis of right upper limb[ICD10: L03.113] Diagnosis: Mixed hyperlipidemia[ICD10: E78.2] Laney Guerrero MD, [facility] CPT-4: 68690 04/03/2018 ([id number]) [id number] EST. P ATIENT, LEVEL III Diagnosis: Type 2 diabetes mellitus with hyperglycemia[ICD10: E11.65] Laney Guerrero MD, [facility] CPT-4: 22973 01/27/2018 ([id number]) Miscellaneou s no charge Diagnosis: Type 2 diabetes mellitus with hyperglycemia[ICD10: E11.65] Laney Guerrero MD, [facility] CPT-4: 09178 01/13/2018 [id number] EST. PATIENT, LEVEL III Diagnosis: Type 2 diabetes mellitus with hyperglycemia[ICD10: E11.65] Diagnosis: Essential (primary) hypertension[ICD10: I10] Diagnosis: Mixed hyperlipidemia[ICD10: E78.2] Laney Guerrero MD, [facility] CPT-4: 38955 12/31/2017 [id number] EST. PATIENT, LEVEL III Diagnosis: Type 2 diabetes mellitus with hyperglycemia[ICD10: E11.65] Diagnosis: Essential (primary) hypertension[ICD10: I10] Diagnosis: Mixed hyperlipidemia[ICD10: E78.2] Diagnosis: Actinic keratosis[ICD10: L57.0] Laney Guerrero MD, [facility] CPT-4: 31679 10/08/2017 [id number] EST. PATIENT, LEVEL III Diagnosis: Type 2 diabetes mellitus with hyperglycemia[ICD10: E11.65] Diagnosis: Essential (primary) hypertension[ICD10: I10] Diagnosis: Mixed hyperlipidemia[ICD10: E78.2] Diagnosis: Actinic keratosis[ICD10: L57.0] Laney Guerrero MD, [facility] CPT-4: 36665 08/27/2017 [id number] EST. PATIENT, LEVEL III Diagnosis: Type 2 diabetes mellitus with hyperglycemia[ICD10: E11.65] Diagnosis: Essential (primary) hypertension[ICD10: I10] Diagnosis: Mixed hyperlipidemia[ICD10: E78.2] Laney Guerrero MD, [facility] CPT-4: 79943 06/25/2017 ([id number]) 30055 EST. 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 Pt has been encouraged to exercise daily. The pt has been advised to call the office if there are any acute concerns about change in blood pressure readings at home. Diabetes Mellitus - I have recommended for the patient to have follow up labs prior to the next office visit. The patient has been instructed to continue with current medications as previously directed, continue with regular FSBS monitoring to assure continued control of diabetes. Pt to call for any acute concerns, complaints, or if the blood glucose readings are starting to become less controlled. I have recommended for the patient to follow more strictly to the diabetic diet as discussed in clinic to allow for greater blood glucose control. 02/22/2019 Patient Education: Patient Medication Summary Completed 02/22/2019 Visit Plan: Previous tick bite with ehrlichiosis positive - The patient was instructed in appropriate wound care. The patient was instructed to use the antibiotic ointment as per RX. The patient is to call for any change in symptoms, increase in size of the lesion, increase in pain, worsening redness, warmth, discharge. 02/19/2019 Appointment: Laney Luther WPtel: [phone] [facility] (15 min) Moderate 02/19/2019 Patient Education: Patient Medication Summary Completed 02/19/2019 Visit Plan: tick bite - The patient was instructed in appropriate wound care. The patient was instructed to use the antibiotic ointment as per RX. The patient is to call for any change in symptoms, increase in size of the lesion, increase in pain, worsening redness, warmth, discharge. 01/25/2019 Appointment: Laney Luther WPtel: [facility] (15 min) Moderate 01/25/2019 Patient Education: Patient Medication Summary Completed 01/25/2019 Visit Plan: Hypertension - The camille ent has been counseled to cut back on salt in diet for a no added salt diet, low fat diet, start an exercise program with low weight bearing exercises and higher aerobic activity for heart health. The patient is to check blood pressure readings as an outpatient and either fax, call, or email the readings to the office next week for practitioner to review. The pt is to call for acute concerns. Diabetes Mellitus - Uncontrolled - per recent FSBS reports. I have recommended for the patient to have follow up labs prior to the next office visit. The patient has been instructed to continue with current medications as previously directed, continue with regular FSBS monitoring to assure continued control of diabetes. Pt to call for any acute concerns, complaints, or if the blood glucose readings are starting to become less controlled. I have recommended for the patient to follow more strictly to the diabetic diet as discussed in clinic to allow for greater blood glucose control. 11/16/2018 Appointment: [facility] [place] (15 min) Moderate 11/16/2018 Appointment: Laney Luther WPtel: [phone] [facility] (30 min) Complex 11/16/2018 Patient Education: Patient Medication Summary Completed 11/16/2018 Patient Education: Diabetes Completed 11/16/2018 Appointment: Laney Luther WPtel: [phone] [facility] (15 min) Moderate 11/02/2018 Patient Education: Patient Medication Summary Completed 10/21/2018 Visit Plan: Sinusitis - Pt has acut e infection - pain in face, maxillary region, Pt informed to use decongestant, RX given to patient, sinus rinses also recommended. Call if symptoms do not show improvement. Allerg ies - chronic - recommended pt to use allergy medication as prescribed. Pt has been counseled as to the appropriate use of the medication. Pt to call if allergy symptoms are not controlled with the medication. If using nasal spray, instructions as follows: Nasal spray- use twice daily, one spray per nostril twice daily, after 30 minutes, rinse out nose with saline spray.. Use opposite hand per nostril to spray in the nasal steroid allergy spray. 10/15/2018 Appointment: Laney Luther WPtel: [phone] [facility] (30 min) Complex 10/15/2018 Patient Education: Patient Medication Summary Completed 10/15/2018 Patient Education: Obesity Completed 10/15/2018 Visit Plan: Diabetes Mellitus - I h ave recommended for the patient to have follow up labs prior to the next office visit. The patient has been instructed to continue with current medications as previously directed, continue with regular FSBS monitoring to assure continued control of diabetes. Pt to call for any acute concerns, complaints, or if the blood glucose readings are starting to become less controlled. I have recommended for the patient to follow more strictly to the diabetic diet as discussed in clinic to allow for greater blood glucose control. 08/05/2018 Appointment: Laney Luther WPtel: [phone] [facility] (15 min) Moderate 08/05/2018 Patient Education: Patient Medication Summary Completed 08/05/2018 Appointment: Laney Luther WPtel: [phone] [facility] (15 min) Moderate 07/17/2018 Referral: Kevin Cuevas Referral Initiated 07/07/2018 Appointment: Injection 06/24/2018 Patient Education: Patient Medication Summary Completed 06/24/2018 Visit Plan: Allergies - chronic - r ecommended pt to use allergy medication as prescribed. Pt has been counseled as to the appropriate use of the medication. Pt to call if allergy symptoms are not controlled with th e medication. If using nasal spray, instructions as follows: Nasal spray- use twice daily, one spray per nostril twice daily, after 30 minutes, rinse out nose with saline spray.. Use opposite hand per nostril to spray in the nasal steroid allergy spray. Diabetes Mellitus - I have recommended for the patient to have follow up labs prior to the next office visit. The patient has been instructed to continue with current medications as previously directed, continue with regular FSBS monitoring to assure continued control of diabetes. Pt to call for any acute concerns, complaints, or if the blood glucose readings are starting to become less controlled. I have recommended for the patient to follow more strictly to the diabetic diet as discussed in clinic to allow for greater blood glucose control. 06/22/2018 Appointment: Laney Luther WPtel: [facility] (15 min) Moderate 06/22/2018 Patient Education: Patient Medication Summary Completed 06/22/2018 Patient Education: Diabetes Completed 06/22/2018 Care Plan: Referral Order SNOMED-CT : [id number] Pending 06/22/2018 Referral: Christian Johnson [id number] Referral Initiated 06/02/2018 Appointment: Nurse Visit 05/18/2018 Visit Plan: Double vision - started after giving blood on 05/03/18, improved with increased fluid intake - will check CBC - Will discuss with Dr. Guerrero. pt is to keep his appointment with Dr. Johnson. Pt is to notify clinic if symptoms do not improve, if they worsen, or with any changes, questions, or concerns. 05/14/2018 Appointment: Laney Luther WPtel: [phone] [facility] (15 min) Moderate 05/14/2018 Patient Education: Patient Medication Summary Completed 05/14/2018 Appointment: Nurse Visit 04/30/2018 Visit Plan: Allergies - chronic - r ecommended pt to use allergy medication as prescribed. Pt has been counseled as to the appropriate use of the medication. Pt to call if allergy symptoms are not controlled with th e medication. If using nasal spray, instructions as follows: Nasal spray- use twice daily, one spray per nostril twice daily, after 30 minutes, rinse out nose with saline spray.. Use opposite hand per nostril to spray in the nasal steroid allergy spray. BPPV - Benign Paroxysmal Positional Vertigo - discussed diagnosis with the patient, offered the pt the appropriate additional information in hand-out. Pt instructed in home exercises to help alleviate and prevent future recurrent episodes of vertigo. Pt informed that if symptoms worsen, call the office for further instructions/medication interventions. 04/27/2018 Patient Education: Patient Medication Summary Completed 04/27/2018 Care Plan: Referral Order SNOMED-CT : [id number] Pending 04/27/2018 Visit Plan: Diabetes Mellitus - Unc ontrolled - per recent FSBS reports. I have recommended for the patient to have follow up labs prior to the next office visit. The patient has been instructed to continue with current medications as previously directed, continue with regular FSBS monitoring to assure continued control of diabetes. Pt to call for any acute concerns, complaints, or if the blood glucose readings are starting to become less controlled. I have recommended for the patient to follow more strictly to the diabetic diet as discussed in clinic to allow for greater blood glucose control. Cellulitis - continue with oral antibiotics as previously directed, return to clinic as previously directed, call for acute change in symptoms, worsening redness, warmth, discharge. Hyperlipidemia - pt has been counseled about appropriate diet, exercise, and need for low fat food choices. I have discussed the need for the patient to take medications as prescribed. If the patient has negative side effects from the medication, they are to CALL the office and not abruptly discontinue the medication without discussion with a practitioner in the office. 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 04/03/2018 Appointment: Laney Luther WPtel: [address] [place] [address] (15 min) Moderate 04/03/2018 Patient Education: Patient Medication Summary Completed 04/03/2018 Appointment: Lane[facility] Luther [facility]el: [phone] (30 min) Complex 03/31/2018 Patient Education: Patient Medication Summary Completed 03/05/2018 Visit Plan: Diabetes Mellitus - I h ave recommended for the patient to have follow up labs prior to the next office visit. The patient has been instructed to continue with current medications as previously directed, continue with regular FSBS monitoring to assure continued control of diabetes. Pt to call for any acute concerns, complaints, or if the blood glucose readings are starting to become less controlled. I have recommended for the patient to follow more strictly to the diabetic diet as discussed in clinic to allow for greater blood glucose control. 01/27/2018 Visit Plan: Diabetes Mellitus - I h ave recommended for the patient to have follow up labs prior to the next office visit. The patient has been instructed to continue with current medications as previously directed, continue with regular FSBS monitoring to assure continued control of diabetes. Pt to call for any acute concerns, complaints, or if the blood glucose readings are starting to become less controlled. I have recommended for the patient to follow more strictly to the diabetic diet as discussed in clinic to allow for greater blood glucose control. 01/27/2018 Appointment: Laney Luther [facility]Ptel: [phone] (30 min) Complex 01/27/2018 Patient Education: Patient Medication Summary Completed 01/27/2018 Visit Plan: Medicare Exam - today w e discussed the patients past history, immunizations, preventative exams/evaluations - colonoscopy, fecal occult blood testing, routine labs for renal function, glucose, cholesterol, osteoporosis evaluations, cardiovascular testing and cancer screenings. We have also discussed mental health and the signs/symptoms of depression. The patient was advised of home safety evaluations and the need to make sure that as the aging process continues, we need to be aware of different ways to make the home a safer place to reside. The patient has also been counseled that exercise is necessary - and of utmost importance as we age to help decrease fall risk and to maintain independece in the home. Today we discussed the need for the patient to create paperwork for Advanced directives as well as for the patient to provide this office with a copy of her DOPA paperwork for health care surrogate. 01/21/2018 Patient Education: Patient Medication Summary Completed 01/21/2018 Appointment: Laney Luther WPtel: [phone] (15 min) Moderate 01/13/2018 Patient Education: Patient Medication Summary Completed 01/13/2018 Visit Plan: Continuous glucose ginette tor placed - pt tolerated procedure well - pt verbalizes understanding of plan for finger stick and food logs, pt verbalizes understand use/need for monitor and when to return for removal. Diabetes Mellitus - I have recommended for the patient to have follow up labs prior to the next office visit. The patient has been instructed to continue with current medications as previously directed, continue with regular FSBS monitoring to assure continued control of diabetes. Pt to call for any acute concerns, complaints, or if the blood glucose readings are starting to become less controlled. I have recommended for the patient to follow more strictly to the diabetic diet as discussed in clinic to allow for greater blood glucose control. 01/06/2018 Visit Plan: Continuous glucose ginette tor placed - pt tolerated procedure well - pt verbalizes understanding of plan for finger stick and food logs, pt verbalizes understand use/need for monitor and when to return for removal. Diabetes Mellitus - I have recommended for the patient to have follow up labs prior to the next office visit. The patient has been instructed to continue with current medications as previously directed, continue with regular FSBS monitoring to assure continued control of diabetes. Pt to call for any acute concerns, complaints, or if the blood glucose readings are starting to become less controlled. I have recommended for the patient to follow more strictly to the diabetic diet as discussed in clinic to allow for greater blood glucose control. 01/06/2018 Appointment: Laney Luther WPtel: [phone] [facility] [place] (15 min) Moderate 01/06/2018 Patient Education: Patient Medication Summary Completed 01/06/2018 Visit Plan: Hypertension - well con trolled - continue with current medications, continue with no added salt diet. Pt has been encouraged to exercise daily. The pt has been advised to call the office if there are any acute concerns about change in blood pressure readings at home. Diabetes Mellitus - Uncontrolled - per recent FSBS reports. I have recommended for the patient to have follow up labs prior to the next office visit. The patient has been instructed to continue with current medications as previously directed, continue with regular FSBS monitoring to assure continued control of diabetes. Pt to call for any acute concerns, complaints, or if the blood glucose readings are starting to become less controlled. I have recommended for the patient to follow more strictly to the diabetic diet as discussed in clinic to allow for greater blood glucose control. Hyperlipidemia - pt has been counseled about appropriate diet, exercise, and need for low fat food choices. I have discussed the need for the patient to take medications as prescribed. If the patient has negative side effects from the medication, they are to CALL the office and not abruptly discontinue the medication without discussion with a practitioner in the office. We will check labs in 3-6 months for follow up on the patient's chronic medical problem and to assure normal liver response to medications. 12/31/2017 Appointment: Laney Luther WPtel: [address] [place] [id number] (30 min) [facility] 12/31/2017 Patient Education: Patient Medication Summary Completed 12/31/2017 Patient Education: Patient Medication Summary Completed 12/22/2017 Visit Plan: Diabetes Mellitus - The patient has been instructed to continue with current medications as previously directed, continue with regular FSBS monitoring to assure continued control of diabetes. Pt to call for any acute concerns, complaints, or if the blood glucose readings are starting to become less controlled. I have recommended for the patient to follow more strictly to the diabetic diet as discussed in clinic to allow for greater blood glucose control. Hypertension - well controlled - continue with current medications, continue with no added salt diet. Pt has been encouraged to exercise daily. The pt has been advised to call the office if there are any acute concerns about change in blood pressure readings at home. Hyperlipidemia - pt has been counseled about appropriate diet, exercise, and need for low fat food choices. I have discussed the need for the patient to take medications as prescribed. If the patient has negative side effects from the medication, they are to CALL the office and not abruptly discontinue the medication without discussion with a practitioner in the office. We will check labs in 3-6 months for follow up on the patient's chronic medical problem and to assure normal mxa er response to medications. AK - cryotherapy to area - pt tolerated procedure well - Wound Instructions - Pt was instructed to keep the wound clean, wash with antibacterial soap, use triple antibiotic ointment, call if redness, pustular drainage, or any other acute concerns. 10/08/2017 Appointment: Laney Luther [facility]Ptel: [facility] [place] (30 min) Complex 10/08/2017 Patient Education: Patient Medication Summary Completed 10/08/2017 Appointment: Laney Luther WPtel: [facility] [facility] [place] (15 min) Moderate 10/07/2017 Visit Plan: Diabetes Mellitus - The patient has been instructed to continue with current medications as previously directed, continue with regular FSBS monitoring to assure continued control of diabetes. Pt to call for any acute concerns, complaints, or if the blood glucose readings are starting to become less controlled. I have recommended for the patient to follow more strictly to the diabetic diet as discussed in clinic to allow for greater blood glucose control. Hypertension - well controlled - continue with current medications, continue with no added salt diet. Pt has been encouraged to exercise daily. The pt has been advised to call the office if there are any acute concerns about change in blood pressure readings at home. Hyperlipidemia - pt has been counseled about appropriate diet, exercise, and need for low fat food choices. I have discussed the need for the patient to take medications as prescribed. If the patient has negative side effects from the medication, they are to CALL the office and not abruptly discontinue the medication without discussion with a practitioner in the office. We will check labs in 3-6 months for follow up on the patient's chronic medical problem and to assure normal max er response to medications. AK - cryotherapy to area - pt tolerated procedure well - Wound Instructions - Pt was instructed to keep the wound clean, wash with antibacterial soap, use triple antibiotic ointment, call if redness, pustular drainage, or any other acute concerns. 08/27/2017 Appointment: Laney Luther WPtel: [facility] [place] (30 min) Complex 08/27/2017 Patient Education: Patient Medication Summary Completed 08/27/2017 Visit Plan: Diabetes Mellitus - I h ave recommended for the patient to have follow up labs prior to the next office visit. The patient has been instructed to continue with current medications as previously directed, continue with regular FSBS monitoring to assure continued control of diabetes. Pt to call for any acute concerns, complaints, or if the blood glucose readings are starting to become less controlled. I have recommended for the patient to follow more strictly to the diabetic diet as discussed in clinic to allow for greater blood glucose control. Hypertension - The patient has been counseled to cut back on salt in diet for a no added salt diet, low fat diet, start an exercise program with low weight bearing exercises and higher aerobic activity for heart health. The patient is to check blood pressure readings as an outpatient and either fax, call, or email the readings to the office next week for practitioner to review. The pt is to call for acute concerns. Hyperlipidemia - pt has been counseled about appropriate diet, exercise, and need for low fat food choices. I have discussed the need for the patient to take medications as prescribed. If the patient has negative side effects from the medication, they are to CALL the office and not abruptly discontinue the medication without discussion with a practitioner in the office. We will check labs in 3-6 months for follow up on the patient's chronic medical problem and to assure normal liver response to medications. 06/25/2017 Appointment: Laney Luther [facility]Ptel: [phone] (30 min) Complex 06/25/2017 Patient Education: Patient Medication Summary Completed 06/25/2017 Appointment: Debra Ramirez [facility]Ptel: [facility] [place] (30 min) Complex 06/24/2017 Visit Plan: Hypertension -elevated today- continue with current medications, continue with no added salt diet. Pt has been encouraged to exercise daily. The pt has been advised to call the office if there are any a cute concerns about change in blood pressure readings at home. Diabetes Mellitus - controlled - per recent FSBS reports. I have recommended for the patient to have follow up labs prior to the next office visit. The patient has been instructed to continue with current medications as previously directed, continue with regular FSBS monitoring to assure continued control of diabetes. Pt to call for any acute concerns, complaints, or if the blood glucose readings are starting to become less controlled. CHECK FASTING LABS NEXT WEEK Hyperlipidemia - pt has been counseled about appropriate diet, exercise, and need for low fat food choices. I have discussed the need for the patient to take medications as prescribed. If the patient has negative side effects from the medication, they are to CALL the office and not abruptly discontinue the medication without discussion with a practitioner in the office. We will check labs in 3-6 months for follow up on the patient's chronic medical problem and to assure normal liver response to medications. 06/10/2017 Appointment: Debra Ramirez WPtel: [address] (30 min) Complex 06/10/2017 Patient Education: Patient Medication Summary Completed 06/10/2017 Patient Education: Obesity Completed 06/10/2017 Appointment: Injection 06/09/2017 Patient Education: Patient Medication Summary Completed 06/09/2017 Visit Plan: Hypertension - The camille ent has been counseled to cut back on salt in diet for a no added salt diet, low fat diet, start an exercise program with low weight bearing exercises and higher aerobic activity for heart health. The patient is to check blood pressure readings as an outpatient and either fax, call, or email the readings to the office next week for practitioner to review. The pt is to call for acute concerns. Diabetes Mellitus - I have recommended for the patient to have follow up labs prior to the next office visit. The patient has been instructed to continue with current medications as previously directed, continue with regular FSBS monitoring to assure continued control of diabetes. Pt to call for any acute concerns, complaints, or if the blood glucose readings are starting to become less controlled. I have recommended for the patient to follow more strictly to the diabetic diet as discussed in clinic to allow for greater blood glucose control. 05/20/2017 Appointment: Laney Luther WPtel: [facility] [address] New Patient 05/20/2017 Patient Education: Patient Medication Summary Completed 05/20/2017 Referral: Christian Johnson [address] Referral Initiated Referral: Kevin Cuevas Referral Initiated Instructions Comment . Medicare Exam - to day we discussed the patients past history, immunizations, preventative exams/evaluations - colonoscopy, fecal occult blood testing, routine labs for renal function, glucose, cholesterol, osteoporosis evaluations, cardiovascular testing and cancer screenings. We have also discussed mental health and the signs/symptoms of depression. The patient was advised of home safety evaluations and the need to make sure that as the aging process continues, we need to be aware of different ways to make the home a safer place to reside. The patient has also been counseled that exercise is necessary - and of utmost importance as we age to help decrease fall risk and to maintain independece in the home. Today we discussed the need for the patient to create paperwork for Advanced directives as well as for the patient to provide this office with a copy of her DOPA paperwork for health care surrogate. Check fasting lipid with next set of labs. Will check tick panel and start doxy - let me know if it is not getting better. . Diabetes Mellitus - Uncontrolled - per recent FSBS reports. I have recommended for the patient to have follow up labs prior to the next office visit. The patient has been instructed to continue with current medications as previously directed, continue with regular FSBS monitoring to assure continued control of diabetes. Pt to call for any acute concerns, complaints, or if the blood glucose readings are starting to become less controlled. I have recommended for the patient to follow more strictly to the diabetic diet as discussed in clinic to allow for greater blood glucose control. Cellulitis - continue with oral antibiotics as previously directed, return to clinic as previously directed, call for acute change in symptoms, worsening redness, warmth, discharge. Hyperlipidemia - pt has been counseled about appropriate diet, exercise, and need for low fat food choices. I have discussed the need for the patient to take medications as prescribed. If the patient has negative side effects from the medication, they are to CALL the office and not abruptly discontinue the medication without discussion with a practitioner in the office. We will check labs in 3-6 months for follow up on the patient's chronic medical problem and to assure normal liver response to medications. Stop atorvastatin - will check your cholesterol in 3 months and see if we need to restart Will call you when we are ready to do the CGM. Hypertension - well controlled - continue with current medications, continue with no added salt diet. Pt has been encouraged to exercise daily. The pt has been advised to call the office if there are any acute concerns about change in blood pressure readings at home. Diabetes Mellitus - Uncontrolled - per recent FSBS reports. I have recommended for the patient to have follow up labs prior to the next office visit. The patient has been instructed to continue with current medications as previously directed, continue with regular FSBS monitoring to assure continued control of diabetes. Pt to call for any acute concerns, complaints, or if the blood glucose readings are starting to become less controlled. I have recommended for the patient to follow more strictly to the diabetic diet as discussed in clinic to allow for greater blood glucose control. Hyperlipidemia - pt has been counseled about appropriate diet, exercise, and need for low fat food choices. I have discussed the need for the patient to take medications as prescribed. If the patient has negative side effects from the medication, they are to CALL the office and not abruptly discontinue the medication without discussion with a practitioner in the office. We will check labs in 3-6 months for follow up on the patient's chronic medical problem and to assure normal liver response to medications. . Continuous glucose monitor placed - pt tolerated procedure well - pt verbalizes understanding of plan for finger stick and food logs, pt verbalizes understand use/need for monitor and when to return for removal. Diabetes Mellitus - I have recommended for the patient to have follow up labs prior to the next office visit. The patient has been instructed to continue with current medications as previously directed, continue with regular FSBS monitoring to assure continued control of diabetes. Pt to call for any acute concerns, complaints, or if the blood glucose readings are starting to become less controlled. I have recommended for the patient to follow more strictly to the diabetic diet as discussed in clinic to allow for greater blood glucose control. . Continuous glucose monitor placed - pt tolerated procedure well - pt verbalizes understanding of plan for finger stick and food logs, pt verbalizes understand use/need for monitor and when to return for removal. Diabetes Mellitus - I have recommended for the patient to have follow up labs prior to the next office visit. The patient has been instructed to continue with current medications as previously directed, continue with regular FSBS monitoring to assure continued control of diabetes. Pt to call for any acute concerns, complaints, or if the blood glucose readings are starting to become less controlled. I have recommended for the patient to follow more strictly to the diabetic diet as discussed in clinic to allow for greater blood glucose control. . Hypertension - wel l controlled - continue with current medications, continue with no added salt diet. Pt has been encouraged to exercise daily. The pt has been advised to call the office if there are any acute concerns about change in blood pressure readings at home. Diabetes Mellitus - I have recommended for the patient to have follow up labs prior to the next office visit. The patient has been instructed to continue with current medications as previously directed, continue with regular FSBS monitoring to assure continued control of diabetes. Pt to call for any acute concerns, complaints, or if the blood glucose readings are starting to become less controlled. I have recommended for the patient to follow more strictly to the diabetic diet as discussed in clinic to allow for greater blood glucose control. . Diabetes Mellitus - The patient has been instructed to continue with current medications as previously directed, continue with regular FSBS monitoring to assure continued control of diabetes. Pt to call for any acute concerns, complaints, or if the blood glucose readings are starting to become less controlled. I have recommended for the patient to follow more strictly to the diabetic diet as discussed in clinic to allow for greater blood glucose control. Hypertension - well controlled - continue with current medications, continue with no added salt diet. Pt has been encouraged to exercise daily. The pt has been advised to call the office if there are any acute concerns about change in blood pressure readings at home. Hyperlipidemia - pt has been counseled about appropriate diet, exercise, and need for low fat food choices. I have discussed the need for the patient to take medications as prescribed. If the patient has negative side effects from the medication, they are to CALL the office and not abruptly discontinue the medication without discussion with a practitioner in the office. We will check labs in 3-6 months for follow up on the patient's chronic medical problem and to assure normal liver response to medications. AK - cryotherapy to area - pt tolerated procedure well - Wound Instructions - Pt was instructed to keep the wound clean, wash with antibacterial soap, use triple antibiotic ointment, call if redness, pustular drainage, or any other acute concerns. . Diabetes Mellitus - I have recommended for the patient to have follow up labs prior to the next office visit. The patient has been instructed to continue with current medications as previously directed, continue with regular FSBS monitoring to assure continued control of diabetes. Pt to call for any acute concerns, complaints, or if the blood glucose readings are starting to become less controlled. I have recommended for the patient to follow more strictly to the diabetic diet as discussed in clinic to allow for greater blood glucose control. . Diabetes Mellitus - I have recommended for the patient to have follow up labs prior to the next office visit. The patient has been instructed to continue with current medications as previously directed, continue with regular FSBS monitoring to assure continued control of diabetes. Pt to call for any acute concerns, complaints, or if the blood glucose readings are starting to become less controlled. I have recommended for the patient to follow more strictly to the diabetic diet as discussed in clinic to allow for greater blood glucose control. . Diabetes Mellitus - I have recommended for the patient to have follow up labs prior to the next office visit. The patient has been instructed to continue with current medications as previously directed, continue with regular FSBS monitoring to assure continued control of diabetes. Pt to call for any acute concerns, complaints, or if the blood glucose readings are starting to become less controlled. I have recommended for the patient to follow more strictly to the diabetic diet as discussed in clinic to allow for greater blood glucose control. . Double vision - st arted after giving blood on 05/03/18, improved with increased fluid intake - will check CBC - Will discuss with Dr. Guerrero. pt is to keep his appointment with Dr. Johnson. Pt is to notify clinic if symptoms do not improve, if they worsen, or with any changes, questions, or concerns. No changes - follow a diabetic diet - I do not want to increase your medications yet - call in 2 weeks if your blood sugars are still running elevated. . Diabetes Mellitus - I have recommende d for the patient to have follow up labs prior to the next office visit. The patient has been instructed to continue with current medications as previously directed, continue with regular FSBS monitoring to assure continued control of diabetes. Pt to call for any acute concerns, complaints, or if the blood glucose readings are starting to become less controlled. I have recommended for the patient to follow more strictly to the diabetic diet as discussed in clinic to allow for greater blood glucose control. Hypertension - The patient has been counseled to cut back on salt in diet for a no added salt diet, low fat diet, start an exercise program with low weight bearing exercises and higher aerobic activity for heart health. The patient is to check blood pressure readings as an outpatient and either fax, call, or email the readings to the office next week for practitioner to review. The pt is to call for acute concerns. Hyperlipidemia - pt has been counseled about appropriate diet, exercise, and need for low fat food choices. I have discussed the need for the patient to take medications as prescribed. If the patient has negative side effects from the medication, they are to CALL the office and not abruptly discontinue the medication without discussion with a practitioner in the office. We will check labs in 3-6 months for follow up on the patient's chronic medical problem and to assure normal liver response to medications. . tick bite - The milana tient was instructed in appropriate wound care. The patient was instructed to use the antibiotic ointment as per RX. The patient is to call for any change in symptoms, increase in size of the lesion, increase in pain, worsening redness, warmth, discharge. start zyrtec daily - let your eye doctor know that you are having some double vision will get you an appointment with Dr. Johnson for the ongoing off balance/vertigo . Allergies - chronic - recommended pt t o use allergy medication as prescribed. Pt has been counseled as to the appropriate use of the medication. Pt to call if allergy symptoms are not controlled with the medication. If using nasal spray, instructions as follows: Nasal spray- use twice daily, one spray per nostril twice daily, after 30 minutes, rinse out nose with saline spray.. Use opposite hand per nostril to spray in the nasal steroid allergy spray. BPPV - Benign Paroxysmal Positional Vertigo - discussed diagnosis with the patient, offered the pt the appropriate additional information in hand-out. Pt instructed in home exercises to help alleviate and prevent future recurrent episodes of vertigo. Pt informed that if symptoms worsen, call the office for further instructions/medication interventions. . Previous tick bite with ehrlichiosis positive - The patient was instructed in appropriate wound care. The patient was instructed to use the antibiotic ointment as per RX. The patient is to call for any change in symptoms, increase in size of the lesion, increase in pain, worsening redness, warmth, discharge. . Sinusitis - Pt has acute infection - pain in face, maxillary region, Pt informed to use decongestant, RX given to patient, sinus rinses also recommended. Call if symptoms do not show improvement. Allergies - chronic - recommended pt to use allergy medication as prescribed. Pt has been counseled as to the appropriate use of the medication. Pt to call if allergy symptoms are not controlled with the medication. If using nasal spray, instructions as follows: Nasal spray- use twice daily, one spray per nostril twice daily, after 30 minutes, rinse out nose with saline spray.. Use opposite hand per nostril to spray in the nasal steroid allergy spray. . Hypertension - The patient has been counseled to cut back on salt in diet for a no added salt diet, low fat diet, start an exercise program with low weight bearing exercises and higher aerobic activity for heart health. The patient is to check blood pressure readings as an outpatient and either fax, call, or email the readings to the office next week for practitioner to review. The pt is to call for acute concerns. Diabetes Mellitus - Uncontrolled - per recent FSBS reports. I have recommended for the patient to have follow up labs prior to the next office visit. The patient has been instructed to continue with current medications as previously directed, continue with regular FSBS monitoring to assure continued control of diabetes. Pt to call for any acute concerns, complaints, or if the blood glucose readings are starting to become less controlled. I have recommended for the patient to follow more strictly to the diabetic diet as discussed in clinic to allow for greater blood glucose control. GET RECENT LABS FROM [facility] FA[facility]ING [facility] NEXT WEEK UNLESS WE CALL YOU WILL FILL OUT PAPERWORK SO YOU CAN GET YOUR TEST STRIPS AND LANCETS MONITOR BLOOD PRESSURE AND FOLLOW UP IN 1 MONTH . Hypertension -elevated today- continue with current medications, continue with no added salt diet. Pt has been encouraged to exercise daily. The pt has been advised to call the office if there are any acute concerns about change in blood pressure readings at home. Diabetes Mellitus - controlled - per recent FSBS reports. I have recommended for the patient to have follow up labs prior to the next office visit. The patient has been instructed to continue with current medications as previously directed, continue with regular FSBS monitoring to assure continued control of diabetes. Pt to call for any acute concerns, complaints, or if the blood glucose readings are starting to become less controlled. CHECK FASTING LABS NEXT WEEK Hyperlipidemia - pt has been counseled about appropriate diet, exercise, and need for low fat food choices. I have discussed the need for the patient to take medications as prescribed. If the patient has negative side effects from the medication, they are to CALL the office and not abruptly discontinue the medication without discussion with a practitioner in the office. We will check labs in 3-6 months for follow up on the patient's chronic medical problem and to assure normal liver response to medications. . Hypertension - Th e patient has been counseled to cut back on salt in diet for a no added salt diet, low fat diet, start an exercise program with low weight bearing exercises and higher aerobic activity for heart health. The patient is to check blood pressure readings as an outpatient and either fax, call, or email the readings to the office next week for practitioner to review. The pt is to call for acute concerns. Diabetes Mellitus - I have recommended for the patient to have follow up labs prior to the next office visit. The patient has been instructed to continue with current medications as previously directed, continue with regular FSBS monitoring to assure continued control of diabetes. Pt to call for any acute concerns, complaints, or if the blood glucose readings are starting to become less controlled. I have recommended for the patient to follow more strictly to the diabetic diet as discussed in clinic to allow for greater blood glucose control. Will refer you to Dr Frederick Cuevas for some shortness of breath and chronic cough - he can evaluate you to see if you need a bronchoscopy (look down your throat/lungs that you are requesting) Check labs on 07/03 to see if we need to change your diabetes medications. Start Zyrtec over the counter to see if it helps with your chronic cough/throat clearing. . Allergies - chronic - recommended pt t o use allergy medication as prescribed. Pt has been counseled as to the appropriate use of the medication. Pt to call if allergy symptoms are not controlled with the medication. If using nasal spray, instructions as follows: Nasal spray- use twice daily, one spray per nostril twice daily, after 30 minutes, rinse out nose with saline spray.. Use opposite hand per nostril to spray in the nasal steroid allergy spray. Diabetes Mellitus - I have recommended for the patient to have follow up labs prior to the next office visit. The patient has been instructed to continue with current medications as previously directed, continue with regular FSBS monitoring to assure continued control of diabetes. Pt to call for any acute concerns, complaints, or if the blood glucose readings are starting to become less controlled. I have recommended for the patient to follow more strictly to the diabetic diet as discussed in clinic to allow for greater blood glucose control. . Diabetes Mellitus - The patient has been instructed to continue with current medications as previously directed, continue with regular FSBS monitoring to assure continued control of diabetes. Pt to call for any acute concerns, complaints, or if the blood glucose readings are starting to become less controlled. I have recommended for the patient to follow more strictly to the diabetic diet as discussed in clinic to allow for greater blood glucose control. Hypertension - well controlled - continue with current medications, continue with no added salt diet. Pt has been encouraged to exercise daily. The pt has been advised to call the office if there are any acute concerns about change in blood pressure readings at home. Hyperlipidemia - pt has been counseled about appropriate diet, exercise, and need for low fat food choices. I have discussed the need for the patient to take medications as prescribed. If the patient has negative side effects from the medication, they are to CALL the office and not abruptly discontinue the medication without discussion with a practitioner in the office. We will check labs in 3-6 months for follow up on the patient's chronic medical problem and to assure normal liver response to medications. AK - cryotherapy to area - pt tolerated procedure well - Wound Instructions - Pt was instructed to keep the wound clean, wash with antibacterial soap, use triple antibiotic ointment, call if redness, pustular drainage, or any other acute concerns.
--- OUTSIDE RECORDS SUMMARY | 2020-02-09 06:58 | XMS REPORT | CCD ---
Author Author Gunnar Luther Organization Karo Guerrero MD, [facility] Address [address] [place] [address] Phone Care Team Providers Care Landscape Crew Leader Name Role Phone PP Unavailable CCM Unavailable Summary Purpose Interface Exchange Insurance Providers Payer name Policy type / Coverage type Covered constitution party ID Effective Begin Date Effective End Date WPS Medicare Part B Medicare Part B [id number] Unknown Aetna Medicare Part B [id number] Unknown Cigna Medicare Part B 80 [id number] Unknown Family history Sister Diagnosis Age At [...] ed reddy 05/20/[address]: 470151158 Never smoker 05/20/[address]: 296512056 Never drinks alcohol 05/20/2017 Allergies, Adverse Reactions, [...] mupirocin 2 % topica l ointment RxNorm: 575796 1 Application TOP BID 02/19/2019 No Stop Date Active doxycycline hyclate 100 mg capsule RxNorm: 2999808 1 Capsule(s) PO BID 02/19/2019 03/04/2019 Ac tive metformin ER 750 mg tablet,extended release 24 hr RxNorm: 979850 2 TABLET(S) PO DAILY 02/16/2019 08/14/2019 Ac tive doxycycline hyclate 100 mg capsule RxNorm: 1422270 1 Capsule(s) PO BID 02/04/2019 02/07/2019 In active extending out to 14 days doxycycline hyclate 100 mg capsule RxNorm: 0678393 1 Capsule(s) PO BID 01/25/2019 02/03/2019 In active glimepiride 2 mg tablet RxNorm: 005829 TAKE 1 TABLET BY MOUTH TWICE DAILY FOR D IABETES 01/07/2019 01/01/2020 Active diltiazem CD 360 mg capsule,extended release 24 hr RxNorm: 780613 1 CAPSULE(S) PO QHS 12/29/2018 12/23/2019 Ac tive atenolol 50 mg-chlor thalidone 25 mg tablet RxNorm: 667805 1 TABLET(S) PO DAILY 12/17/2018 12/11/2019 Ac tive PLEASE SEND REFILL REQUESTS ELECTRONICAL LY metformin ER 750 mg tablet,extended release 24 hr RxNorm: 178496 2 TABLET(S) PO DAILY 12/17/2018 06/14/2019 Ac tive metformin ER 750 mg tablet,extended release 24 hr RxNorm: 239487 2 TABLET(S) PO DAILY 11/13/2018 12/16/2018 Inactive Tradjenta 5 mg tablet RxNorm: 3343034 TAKE 1 TABLET BY MOUTH DAILY 10/16/2018 03/14/2019 Ac tive Kenalog 40 mg/mL benitez pension for injection RxNorm: 3348181 1 Milliliter(s) Inj 10/15/2018 10/15/2018 In active Tradjenta 5 mg tablet RxNorm: 2842541 TAKE 1 TABLET BY MOUTH DAILY 09/18/2018 02/14/2019 In active metformin ER 750 mg tablet,extended release 24 hr RxNorm: 255995 2 TABLET(S) PO DAILY 07/13/2018 11/09/2018 Inactive Tradjenta 5 mg tablet RxNorm: 9824343 TAKE 1 TABLET BY MOUTH DAILY 07/02/2018 09/17/2018 In active One Touch Test strips RxNorm: 1 Miscellaneous BID 06/29/2018 07/28/2018 Inactive Zyrtec 10 mg tablet RxNorm: 3043844 1 Tablet(s) PO daily 04/27/2018 05/26/2018 Inactive doxycycline hyclate 100 mg capsule RxNorm: 4909721 1 Capsule(s) PO BID 04/03/2018 04/12/2018 In active meclizine 25 mg tablet RxNorm: 207225 1 Tablet(s) PO TID as needed Dizziness 04/03/2018 04/07/2018 In active metformin ER 750 mg tablet,extended release 24 hr RxNorm: 449048 2 TABLET(S) PO DAILY 02/03/2018 06/02/2018 Inactive glimepiride 2 mg tablet RxNorm: 779123 TAKE 1 TABLET BY MOUTH TWICE DAILY FOR D IABETES 01/13/2018 04/07/2019 Active glimepiride 2 mg tablet RxNorm: 256240 TAKE 1 TABLET BY MOUTH TWICE DAILY FOR D IABETES 01/11/2018 01/05/2019 Inactive diltiazem CD 360 mg capsule,extended release 24 hr RxNorm: 048219 1 CAPSULE(S) PO QHS 01/02/2018 12/27/2018 Inactive atenolol 50 mg-chlor thalidone 25 mg tablet RxNorm: 000550 1 Tablet(s) PO daily 12/18/2017 12/12/2018 In active PLEASE SEND REFILL REQUESTS ELECTRONICAL LY Tradjenta 5 mg tablet RxNorm: 1956063 TAKE 1 TABLET BY MOUTH DAILY 12/15/2017 05/13/2018 In active metformin ER 750 mg tablet,extended release 24 hr RxNorm: 537188 2 TABLET(S) PO DAILY 11/05/2017 12/16/2018 Inactive metformin ER 750 mg tablet,extended release 24 hr RxNorm: 149645 2 TABLET(S) PO DAILY 11/03/2017 02/02/2018 Inactive atorvastatin 20 mg t ablet RxNorm: 953695 TAKE 1 TABLET BY MOUT H EVERY NIGHT AT BEDTIME FOR CHOLESTEROL 08/28/2017 08/22/2018 Inactive Zithromax Z-Maury 250 mg tablet RxNorm: 334931 1 Tablet(s) PO UD 08/15/2017 04/13/2018 Inactive Tamiflu 75 mg capsule RxNorm: 643926 1 Capsule(s) PO BID 08/15/2017 08/14/2017 Inactive Tamiflu 75 mg capsule RxNorm: 128697 1 Capsule(s) PO BID 08/15/2017 08/19/2017 Inactive Tradjenta 5 mg tablet RxNorm: 6668016 TAKE 1 TABLET BY MOUTH DAILY 08/12/2017 12/09/2017 In active metformin ER 750 mg tablet,extended release 24 hr RxNorm: 973290 TAKE 2 TABLET BY MOUT H ONCE A DAY DIRECTED 08/08/2017 12/16/2018 Inactive SAVINGS FOR NON-COVERED MED ICATIONS Claims: BIN: [id number], PCN: [id number], GROUP: [id number], Patient ID: [id number] Phone; Questions: [facility] [phone] metformin ER 750 mg tablet,extended release 24 hr RxNorm: 947506 2 Tablet(s) PO daily 08/07/2017 08/06/2017 Inactive metformin ER 750 mg tablet,extended release 24 hr RxNorm: 960997 2 Tablet(s) PO daily 08/07/2017 11/02/2017 Inactive glimepiride 2 mg tablet RxNorm: 253100 TAKE 1 TABLET BY MOUTH TWICE DAILY FOR D IABETES 07/18/2017 01/10/2018 Inactive diltiazem CD 360 mg capsule,extended release 24 hr RxNorm: 592429 1 Capsule(s) PO QHS 07/03/2017 12/29/2017 Inactive One Touch Test strips RxNorm: 1 Miscellaneous daily 05/30/2017 06/28/2017 Inactive One Touch Test strips RxNorm: 1 Miscellaneous daily 05/30/2017 05/29/2017 Inactive iron gluconate-B cmp lx-potassium iodide-minerals oral RxNorm: 04758 oral No Start Date Active Super B Complex 100 tablet RxNorm: 1 Tablet(s) PO daily No Start Date Active Glucosamine Chondroi tin Maximum Strength oral RxNorm: 4845 oral No Start Date Active garlic 1,000 mg capsule RxNorm: 010660 1 Capsule(s) PO BID No Start Date Active vitamin E (dl, aceta te) 400 unit capsule RxNorm: 823750 1 Capsule(s) PO daily No Start Date Active beta carotene 25,000 unit tablet RxNorm: 630455 1 Tablet(s) PO daily No Start Date Active rutin 500 mg tablet RxNorm: 903516 1/2 Tablet(s) PO daily No Start Date Active Calcium 600 + [place] ls oral RxNorm: 714509 oral No S tart Date Active Vitamin D3 1,000 uni t tablet RxNorm: 156369 1 Tablet(s) PO daily No Start Date Active Vitamin C 500 mg tablet RxNorm: 267611 1 Tablet(s) PO daily No Start Date Active acidophilus 25 susanne on cell-pectin, citrus 100 mg tablet RxNorm: 961290 1 Tablet(s) PO BID No Start Date Active Zinc and C oral RxNorm: oral No Start Date Active aspirin 81 mg chewab le tablet RxNorm: 293658 1 Tablet(s) PO QPM No Start Date Active Zegerid OTC 20 mg-1. 1 gram capsule RxNorm: 022204 1 Capsule(s) PO daily No Start Date Active magnesium 250 mg tablet RxNorm: 1 Tablet(s) PO daily No Start Date Active flaxseed oil 1,000 m g capsule RxNorm: 290710 1 Capsule(s) PO BID No Start Date Active milk thistle 175 mg tablet RxNorm: 898790 1 Tablet(s) PO daily No Start Date Active metformin ER 750 mg tablet,extended release 24 hr RxNorm: 569245 2 Tablet(s) PO daily No Start Date 08/06/2017 Inactive atorvastatin 20 mg t ablet RxNorm: 740885 1 Tablet(s) PO daily No Start Date 08/27/2017 Inactive Tradjenta 5 mg tablet RxNorm: 7144539 1 Tablet(s) PO daily No Start Date 08/11/2017 Inactive diltiazem ER 300 mg tablet,extended release 24 hr RxNorm: 478205 1 Tablet(s) PO daily No Start Date 05/18/2017 Inactive glimepiride 2 mg tablet RxNorm: 484078 1 Tablet(s) PO BID No Start Date 07/17/2017 Inactive Zithromax Z-Maury 250 mg tablet RxNorm: 141152 1 Tablet(s) PO UD No Start Date 08/14/2017 Inactive atenolol 50 mg-chlor thalidone 25 mg tablet RxNorm: 580157 1 Tablet(s) PO daily No Start Date 12/17/2017 Inactive diltiazem CD 360 mg capsule,extended release 24 hr RxNorm: 982639 1 Capsule(s) PO QHS No Start Date 07/02/2017 Inactive Medication Administered Medication Codes Instruc tions Start Date Status Kenalog 40 mg/mL suspension for injection RxNorm: 5027993 1Milliliter 10/15/2018 N o longer Active Immunizations [...] Code Item Item Code Result Date %Hba1C Pej799 % HbA1c 98336-3 6.5 % 02/22/2019 %Hba1C Tky002 Gluc Ave 140 mg/dL 02/22/2019 Comp Metabolic Ihp513 NA 138 mEq/L 02/22/2019 Comp Metabolic Vse602 K 4.0 mEq/L 02/22/2019 Comp Metabolic Rnw690 CL 99 mEq/L 02/22/2019 Comp Metabolic Ell129 CO2 29.0 mEq/L 02/22/2019 Comp Metabolic Qfp634 AN ION GAP 14 02/22/2019 Comp Metabolic Hvk570 GL UCOSE 137 mg/dL 02/22/2019 Comp Metabolic Ayt128 Cr eat 1.2 mg/dL 02/22/2019 Comp Metabolic Yvj967 eG FR 62 ml/min/1.73m2 02/22 Comp Metabolic Slz725 BUN 26 mg/dL 02/22/2019 Comp Metabolic Fmg052 B/ C Ratio 22.0 Ratio 02/22/2019 Comp Metabolic Vzv918 CA LCIUM 9.8 mg/dL 02/22/2019 Comp Metabolic Lkq205 AL K PHOS 41 U/L 02/22/2019 Comp Metabolic Cqi832 T(SGOT) 18 U/L 02/22/2019 Comp Metabolic Nhc691 AL T(SGPT) 20 U/L 02/22/2019 Comp Metabolic Rou447 BI LI T 0.4 mg/dL 02/22/2019 Comp Metabolic Jpp165 AL BUMIN 4.4 g/dL 02/22/2019 Comp Metabolic Bkz638 TP RO 6.8 g/dL 02/22/2019 Comp Metabolic Wfe933 GL OB 2.4 g/dL 02/22/2019 Comp Metabolic Pac391 A/ G Ratio 1.8 Ratio 02/22/2019 Comp Metabolic Cxq888 Os mo 283 mOsmo 02/22/2019 Lipid Ord30 CHOL 223 mg/dL 02/22/2019 Lipid Ord30 HDL 31.0 mg/dl 02/22/2019 Lipid Ord30 TRIG 298 mg/dL 02/22/2019 Lipid Ord30 LDL 132 mg/dL 02/22/2019 Lipid Ord30 C/HDL 7.2 Ratio 02/22/2019 Comp Metabolic Fcp262 NA 137 mEq/L 11/09/2018 Comp Metabolic Rdc180 K 4.4 mEq/L 11/09/2018 Comp Metabolic Qnf997 CL 97 mEq/L 11/09/2018 Comp Metabolic Kea085 CO2 30.0 mEq/L 11/09/2018 Comp Metabolic Vys108 AN ION GAP 14 11/09/2018 Comp Metabolic Keo427 GL UCOSE 122 mg/dL 11/09/2018 Comp Metabolic Bln105 Cr eat 1.1 mg/dL 11/09/2018 Comp Metabolic Rsw833 eG FR 70 ml/min/1.73m2 11/09 Comp Metabolic Quk529 BUN 21 mg/dL 11/09/2018 Comp Metabolic Jtq332 B/ C Ratio 19.6 Ratio 11/09/2018 Comp Metabolic Fwm386 CA LCIUM 10.2 mg/dL 11/09/2018 Comp Metabolic Luo743 AL K PHOS 45 U/L 11/09/2018 Comp Metabolic Svn457 T(SGOT) 19 U/L 11/09/2018 Comp Metabolic Pfz564 AL T(SGPT) 24 U/L 11/09/2018 Comp Metabolic Fxe158 BI LI T 0.5 mg/dL 11/09/2018 Comp Metabolic Iak268 AL BUMIN 4.4 g/dL 11/09/2018 Comp Metabolic Kho211 TP RO 6.7 g/dL 11/09/2018 Comp Metabolic Nwd408 GL OB 2.3 g/dL 11/09/2018 Comp Metabolic Gop521 A/ G Ratio 1.9 Ratio 11/09/2018 Comp Metabolic Egn052 Os mo 278 mOsmo 11/09/2018 Cbc With [...] 32.0 pg 11/09/2018 Cbc With Differential Ord2 [place]% 9.8 % 11/09/2018 Cbc With Differential Ord2 [...] 2.13 K/ul 11/09/2018 Cbc With Differential Ord2 [place] ABS# 0.8 K/ul 11/09/2018 Cbc With Differential Ord2 Eos ABS# 0.1 K/ul 11/09/2018 Cbc With Differential Ord2 Baso ABS# 0.0 K/ul 11/09/2018 %Hba1C Rsp618 % HbA1c 55202-4 6.7 % 11/09/2018 %Hba1C Jnm646 Gluc Ave 146 mg/dL 11/09/2018 Tsh Ord6 [...] 31.4 pg 08/03/2018 Cbc With Differential Ord2 [place]% 11.9 % 08/03/2018 Cbc With Differential Ord2 [...] 1.62 K/ul 08/03/2018 Cbc With Differential Ord2 [place] ABS# 0.9 K/ul 08/03/2018 Cbc With Differential Ord2 Eos ABS# 0.1 K/ul 08/03/2018 Cbc With Differential Ord2 Baso ABS# 0.0 K/ul 08/03/2018 Comp Metabolic Ffp342 NA 135 mEq/L 08/03/2018 Comp Metabolic Gde463 K 3.5 mEq/L 08/03/2018 Comp Metabolic Zqw154 CL 95 mEq/L 08/03/2018 Comp Metabolic Fmq726 CO2 30.0 mEq/L 08/03/2018 Comp Metabolic Ggb119 AN ION GAP 14 08/03/2018 Comp Metabolic Sdd538 GL UCOSE 152 mg/dL 08/03/2018 Comp Metabolic Tjc593 Cr eat 1.2 mg/dL 08/03/2018 Comp Metabolic Qqe690 eG FR 61 ml/min/1.73m2 08/03 Comp Metabolic Pjz596 BUN 23 mg/dL 08/03/2018 Comp Metabolic Srw590 B/ C Ratio 19.0 Ratio 08/03/2018 Comp Metabolic Mhr210 CA LCIUM 9.6 mg/dL 08/03/2018 Comp Metabolic Ups072 AL K PHOS 51 U/L 08/03/2018 Comp Metabolic Dml425 T(SGOT) 20 U/L 08/03/2018 Comp Metabolic Vtc512 AL T(SGPT) 24 U/L 08/03/2018 Comp Metabolic Ura569 BI LI T 0.5 mg/dL 08/03/2018 Comp Metabolic Jfo828 AL BUMIN 4.3 g/dL 08/03/2018 Comp Metabolic Wve337 TP RO 6.8 g/dL 08/03/2018 Comp Metabolic Mjd967 GL OB 2.6 g/dL 08/03/2018 Comp Metabolic Mlt950 A/ G Ratio 1.7 Ratio 08/03/2018 Comp Metabolic Hhh745 Os mo 277 mOsmo 08/03/2018 %Hba1C Epd394 % HbA1c 17781-9 7.3 % 08/03/2018 %Hba1C Has402 Gluc Ave 163 mg/dL 08/03/2018 Cbc With [...] 31.2 pg 05/14/2018 Cbc With Differential Ord2 [place]% 12.2 % 05/14/2018 Cbc With Differential Ord2 [...] 1.81 K/ul 05/14/2018 Cbc With Differential Ord2 [place] ABS# 1.0 K/ul 05/14/2018 Cbc With Differential Ord2 Eos ABS# 0.1 K/ul 05/14/2018 Cbc With Differential Ord2 Baso ABS# 0.0 K/ul 05/14/2018 Ehrlichia Chaffeensis Antibody Igm [id number] EHRLICHIA CHAFFEENSIS IGM < 1:16 04/09/2018 Ehrlichia Chaffeensis Antibody Igg [id number] EHRLICHIA CHAFFEENSIS IGG 1:64 04/09/2018 Chilili Spotted Fever Igg/Igm 95962 3 LOTUS MT SPOTTED FEVER IGM EIA . 04/09/2018 [place] Spotted Fever Igg/Igm 09570 3 RMSF, IGM 0.36 index 04/09/2018 [place] Spotted Fever Igg/Igm 70370 3 LOTUS MT SPOTTED FEVER IGG EIA FLEX . 04/09/2018 [place] Spotted Fever Igg/Igm 64347 3 RMSF, IGG SCREEN-FLEX Negative 04/09/2018 Lymes Disease Total Antibodies With Western Blot Refle x [id number] B. BURGDORFERI, IGG/IGM 0.31 04/07/2018 Lymes Disease Total Antibodies With Western Blot Refle x [id number] INTERPRETATION 04/07/2018 %Hba1C Ywz146 % HbA1c 08868-9 7.2 % 03/31/2018 %Hba1C Tev846 Gluc Ave 160 mg/dL 03/31/2018 Lipid Ord30 [...] 31.3 pg 12/22/2017 Cbc With Differential Ord2 [place]% 11.5 % 12/22/2017 Cbc With Differential Ord2 [...] 2.16 K/ul 12/22/2017 Cbc With Differential Ord2 [place] ABS# 1.1 K/ul 12/22/2017 Cbc With Differential Ord2 Eos ABS# 0.1 K/ul 12/22/2017 Cbc With Differential Ord2 Baso ABS# 0.0 K/ul 12/22/2017 Comp Metabolic Yrz625 NA 141 mEq/L 12/22/2017 Comp Metabolic Hzd300 K 3.9 mEq/L 12/22/2017 Comp Metabolic Cpj145 CL 99 mEq/L 12/22/2017 Comp Metabolic Mav582 CO2 32.0 mEq/L 12/22/2017 Comp Metabolic Txe082 AN ION GAP 14 12/22/2017 Comp Metabolic Kis708 GL UCOSE 152 mg/dL 12/22/2017 Comp Metabolic Glz961 Cr eat 1.0 mg/dL 12/22/2017 Comp Metabolic Jne042 eG FR 78 ml/min/1.73m2 12/22 Comp Metabolic Xvl345 BUN 27 mg/dL 12/22/2017 Comp Metabolic Cwl697 B/ C Ratio 27.8 Ratio 12/22/2017 Comp Metabolic Eqy483 CA LCIUM 9.7 mg/dL 12/22/2017 Comp Metabolic Yme464 AL K PHOS 56 U/L 12/22/2017 Comp Metabolic Atw616 T(SGOT) 18 U/L 12/22/2017 Comp Metabolic Usm665 AL T(SGPT) 20 U/L 12/22/2017 Comp Metabolic Udi811 BI LI T 0.4 mg/dL 12/22/2017 Comp Metabolic Qbx039 AL BUMIN 4.2 g/dL 12/22/2017 Comp Metabolic Bwi340 TP RO 6.4 g/dL 12/22/2017 Comp Metabolic Svc884 GL OB 2.2 g/dL 12/22/2017 Comp Metabolic Buj930 A/ G Ratio 1.9 Ratio 12/22/2017 Comp Metabolic Jhc828 Os mo 289 mOsmo 12/22/2017 %Hba1C Baj573 % HbA1c 03452-7 7.1 % 12/22/2017 %Hba1C Frk495 Gluc Ave 157 mg/dL 12/22/2017 Cbc With [...] 31.5 pg 09/22/2017 Cbc With Differential Ord2 [place]% 8.4 % 09/22/2017 Cbc With Differential Ord2 [...] 1.83 K/ul 09/22/2017 Cbc With Differential Ord2 [place] ABS# 0.9 K/ul 09/22/2017 Cbc With Differential Ord2 Eos ABS# 0.0 K/ul 09/22/2017 Cbc With Differential Ord2 Baso ABS# 0.0 K/ul 09/22/2017 %Hba1C Xuo841 % HbA1c 63363-0 6.9 % 09/22/2017 %Hba1C Uqm813 Gluc Ave 151 mg/dL 09/22/2017 Tsh Ord6 [...] 31.6 pg 06/17/2017 Cbc With Differential Ord2 [place]% 11.1 % 06/17/2017 Cbc With Differential Ord2 [...] 2.35 K/ul 06/17/2017 Cbc With Differential Ord2 [place] ABS# 1.2 K/ul 06/17/2017 Cbc With Differential Ord2 Eos ABS# 0.1 K/ul 06/17/2017 Cbc With Differential Ord2 Baso ABS# 0.0 K/ul 06/17/2017 %Hba1C Jfh033 % HbA1c 00204-1 7.3 % 06/17/2017 %Hba1C Ofs406 Gluc Ave 163 mg/dL 06/17/2017 Comp Metabolic Fku227 NA 137 mEq/L 06/17/2017 Comp Metabolic Kmk433 K 3.8 mEq/L 06/17/2017 Comp Metabolic Wen534 CL 98 mEq/L 06/17/2017 Comp Metabolic Jio872 CO2 30.0 mEq/L 06/17/2017 Comp Metabolic Qce431 AN ION GAP 13 06/17/2017 Comp Metabolic Zpi154 GL UCOSE 157 mg/dL 06/17/2017 Comp Metabolic Naa998 Cr eat 1.0 mg/dL 06/17/2017 Comp Metabolic Xif113 eG FR 76 ml/min/1.73m2 06/17 Comp Metabolic Yfq109 BUN 18 mg/dL 06/17/2017 Comp Metabolic Nvc470 B/ C Ratio 18.0 Ratio 06/17/2017 Comp Metabolic Kqp993 CA LCIUM 9.8 mg/dL 06/17/2017 Comp Metabolic Ybn887 AL K PHOS 57 U/L 06/17/2017 Comp Metabolic Wqe621 T(SGOT) 19 U/L 06/17/2017 Comp Metabolic Efg210 AL T(SGPT) 23 U/L 06/17/2017 Comp Metabolic Evw344 BI LI T 0.6 mg/dL 06/17/2017 Comp Metabolic Vwb608 AL BUMIN 4.4 g/dL 06/17/2017 Comp Metabolic Tju103 TP RO 6.8 g/dL 06/17/2017 Comp Metabolic Qor570 GL OB 2.4 g/dL 06/17/2017 Comp Metabolic Mgo346 A/ G Ratio 1.9 Ratio 06/17/2017 Comp Metabolic Rin402 Os mo 279 mOsmo 06/17/2017 Review of [...] skin Location: scalp 10/08/2017 [place] - right christian, mid fo rehead/scalp, left posterior neck - [...] skin Location: scalp 08/27/2017 [place] - right christian, mid fo rehead/scalp - cryotherapy to area, [...] CPT-4: J3301 10/15/2018 THER/PROPH/DIAG INJ SC/IM CPT-4: 13245 10/15/2018 ADMIN INFLUENZA VIRU S VAC CPT-4: G0008 06/24/2018 FLU VACC PRSV FREE I NC ANTIG CPT-4: 64160 06/24/2018 GLUC MONITOR CONT PH YS I&R CPT-4: 57369 01/27/2018 PPPS, SUBSEQ VISIT CPT- 4: G0439 01/21/2018 GLUCOSE MONITORING CONT CPT-4: 92710 01/06/2018 ADMIN INFLUENZA VIRU S VAC CPT-4: G0008 06/09/2017 FLU VACC PRSV FREE I NC ANTIG CPT-4: 73297 06/09/2017 Vital Signs Date Vital 02/22/2019 Blood Pressure 1: 146/74 Code: 8480-6 BMI: 33.1 Code: 04575-0 Heart Rate 1: 62 bpm Height: 5'8" SpO2: 97% Weight: 218 lbs 02/19/2019 Blood Pressure 1: 136/78 Code: 8480-6 Heart Rate 1: 70 bpm Height: SpO2: 98% Weight: 01/25/2019 Blood Pressure 1: 140/74 Code: 8480-6 BMI: 32.8 Code: 70967-2 Heart Rate 1: 60 bpm Height: 5'8" SpO2: 96% Weight: 216 lbs 11/16/2018 Blood Pressure 1: 154/90 Code: 8480-6 BMI: 33.1 Code: 76158-5 Heart Rate 1: 84 bpm Height: 5'8" SpO2: 96% Weight: 218 lbs 10/15/2018 Blood Pressure 1: 140/70 Code: 8480-6 BMI: 33.5 Code: 61382-1 Heart Rate 1: 72 bpm Height: 5'8" SpO2: 98% Weight: 220 lbs 08/05/2018 Blood Pressure 1: 132/56 Code: 8480-6 BMI: 34.5 Code: 66351-8 Heart Rate 1: 65 bpm Height: 5'8" SpO2: 95% Weight: 227 lbs 06/22/2018 Blood Pressure 1: 144/86 Code: 8480-6 BMI: 36.0 Code: 36068-0 Heart Rate 1: 74 bpm Height: 5'8" SpO2: 98% Weight: 237 lbs 05/14/2018 Blood Pressure 1: 132/72 Code: 8480-6 Height: Weight: 04/27/2018 Blood Pressure 1: 148/78 Code: 8480-6 BMI: 35.6 Code: 36289-7 Heart Rate 1: 77 bpm Height: 5'8" SpO2: 97% Weight: 234 lbs 04/03/2018 Blood Pressure 1: 156/80 Code: 8480-6 BMI: 35.4 Code: 42160-9 Heart Rate 1: 70 bpm Height: 5'8" SpO2: 97% Weight: 233 lbs 01/27/2018 BMI: 35.6 Code: 11781-5 Heart Rate 1: 86 bpm Height: 5'8" SpO2: 98% Weight: 234 lbs 01/21/2018 Heigh t: Weight: 01/06/2018 Heigh t: Weight: 12/31/2017 Blood Pressure 1: 140/86 Code: 8480-6 BMI: 34.2 Code: 82226-3 Heart Rate 1: 80 bpm Height: 5'8" SpO2: 98% Weight: 225 lbs 10/08/2017 Blood Pressure 1: 152/74 Code: 8480-6 BMI: 34.2 Code: 57225-6 Heart Rate 1: 67 bpm Height: 5'8" SpO2: 98% Weight: 225 lbs 08/27/2017 Blood Pressure 1: 144/82 Code: 8480-6 BMI: 34.2 Code: 48744-2 Heart Rate 1: 70 bpm Height: 5'8" SpO2: 98% Weight: 225 lbs 06/10/2017 Blood Pressure 1: 150/84 Code: 8480-6 BMI: 35.0 Code: 67336-2 Heart Rate 1: 67 bpm Height: 5'8" SpO2: 98% Weight: 230 lbs 05/20/2017 Blood Pressure 1: 146/76 Code: 8480-6 BMI: 35.3 Code: 32236-0 Heart Rate 1: 70 bpm Height: 5'8" [...] Essential (primary) hypertension[ICD10: I10] Laney Guerrero MD, [facility] CPT-4: 18921 02/22/2019 [id number] EST. PATIENT, LEVEL III Diagnosis: Cellulitis of right lower limb[ICD10: L03.115] Diagnosis: Bitten or stung by nonvenomous insect and other nonvenomous arthropods, subsequent encounter[ICD10: W57.XXXD] Laney Guerrero MD, [facility] CPT-4: 63676 02/19/2019 [id number] EST. PATIENT, LEVEL III Diagnosis: Cellulitis of right lower limb[ICD10: L03.115] Diagnosis: Bitten or stung by nonvenomous insect and other nonvenomous arthropods, initial encounter[ICD10: W57.XXXA] Laney Guerrero MD, [facility] CPT-4: 09798 01/25/2019 [id number] EST. PATIENT, LEVEL III Diagnosis: Type 2 diabetes mellitus with hyperglycemia[ICD10: E11.65] Diagnosis: Essential (primary) hypertension[ICD10: I10] Laney Guerrero MD, [facility] CPT-4: 35516 11/16/2018 [id number] EST. PATIENT, LEVEL IV Diagnosis: Other acute sinusitis[ICD10: J01.80] Diagnosis: Other allergic rhinitis[ICD10: J30.89] Laney Guerrero MD, [facility] CPT-4: 83648 10/15/2018 75790 EST. PATIENT, LEVEL III Diagnosis: Type 2 diabetes mellitus with hyperglycemia[ICD10: E11.65] Laney Guerrero MD, [facility] CPT-4: 77801 08/05/2018 [id number] EST. PATIENT, LEVEL III Diagnosis: Type 2 diabetes mellitus with hyperglycemia[ICD10: E11.65] Laney Guerrero MD, [facility] CPT-4: 94911 06/22/2018 12335 EST. PATIENT, LEVEL IV Diagnosis: Diplopia[ICD10: H53.2] Diagnosis: Other specified anemias[ICD10: D64.89] Laney Guerrero MD, [facility] CPT-4: 95456 05/14/2018 12185 EST. PATIENT, LEVEL III Diagnosis: Benign paroxysmal vertigo, bilateral[ICD10: H81.13] Diagnosis: Other allergic rhinitis[ICD10: J30.89] Laney Guerrero MD, [facility] CPT-4: 93247 04/27/2018 [id number] EST. PATIENT, LEVEL III Diagnosis: Type 2 diabetes mellitus with hyperglycemia[ICD10: E11.65] Diagnosis: Other fatigue[ICD10: R53.83] Diagnosis: Other malaise[ICD10: R53.81] Diagnosis: Bitten or stung by nonvenomous insect and other nonvenomous arthropods, initial encounter[ICD10: W57.XXXA] Diagnosis: Cellulitis of right upper limb[ICD10: L03.113] Diagnosis: Mixed hyperlipidemia[ICD10: E78.2] Laney Guerrero MD, [facility] CPT-4: 07113 04/03/2018 ([id number]) 97109 EST. P ATIENT, LEVEL III Diagnosis: Type 2 diabetes mellitus with hyperglycemia[ICD10: E11.65] Laney Guerrero MD, [facility] CPT-4: 92216 01/27/2018 ([id number]) Miscellaneou s no charge Diagnosis: Type 2 diabetes mellitus with hyperglycemia[ICD10: E11.65] Laney Guerrero MD, [facility] CPT-4: 29044 01/13/2018 85530 EST. PATIENT, LEVEL III Diagnosis: Type 2 diabetes mellitus with hyperglycemia[ICD10: E11.65] Diagnosis: Essential (primary) hypertension[ICD10: I10] Diagnosis: Mixed hyperlipidemia[ICD10: E78.2] Laney Guerrero MD, [facility] CPT-4: 15771 12/31/2017 30691 EST. PATIENT, LEVEL III Diagnosis: Type 2 diabetes mellitus with hyperglycemia[ICD10: E11.65] Diagnosis: Essential (primary) hypertension[ICD10: I10] Diagnosis: Mixed hyperlipidemia[ICD10: E78.2] Diagnosis: Actinic keratosis[ICD10: L57.0] Laney Guerrero MD, [facility] CPT-4: 53640 10/08/2017 [id number] EST. PATIENT, LEVEL III Diagnosis: Type 2 diabetes mellitus with hyperglycemia[ICD10: E11.65] Diagnosis: Essential (primary) hypertension[ICD10: I10] Diagnosis: Mixed hyperlipidemia[ICD10: E78.2] Diagnosis: Actinic keratosis[ICD10: L57.0] Laney Guerrero MD, [facility] CPT-4: 65889 08/27/2017 28672 EST. PATIENT, LEVEL III Diagnosis: Type 2 diabetes mellitus with hyperglycemia[ICD10: E11.65] Diagnosis: Essential (primary) hypertension[ICD10: I10] Diagnosis: Mixed hyperlipidemia[ICD10: E78.2] Laney Guerrero MD, [facility] CPT-4: 74720 06/25/2017 ([id number]) [id number] EST. 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 02/19/2019 Appointment: Laney Luther WPtel: [phone] [id number] (15 min) Moderate 02/19/2019 Patient Education: [...] discharge. 01/25/2019 Appointment: Laney Luther WPtel: [facility] (15 min) Moderate 01/25/2019 Patient Education: [...] control. 11/16/2018 [id number] [place] (15 min) Moderate 11/16/2018 Appointment: Laney Luther WPtel: [phone] [phone] (30 min) Complex 11/16/2018 Patient Education: Patient Medication Summary Completed 11/16/2018 Patient Education: Diabetes Completed 11/16/2018 Appointment: Laney Luther WPtel: [phone] [facility] (15 min) Moderate 11/02/2018 Patient Education: [...] spray. 10/15/2018 Appointment: Laney Luther WPtel: [phone] [id number] (30 min) Complex 10/15/2018 Patient Education: [...] control. 08/05/2018 Appointment: Laney Luther WPtel: [phone] [facility] (15 min) Moderate 08/05/2018 Patient Education: Patient Medication Summary Completed 08/05/2018 Appointment: Laney Luther WPtel: [phone] [facility] (15 min) Moderate 07/17/2018 Referral: Kevin [...] control. 06/22/2018 Appointment: Laney Luther WPtel: [facility] (15 min) Moderate 06/22/2018 Patient Education: Patient Medication Summary Completed 06/22/2018 Patient Education: Diabetes Completed 06/22/2018 Care Plan: Referral Order SNOMED-CT : [id number] Pending 06/22/2018 Referral: Christian Johnson [id number] Referral Initiated 06/02/2018 Appointment: Nurse Visit 05/18/2018 [...] concerns. 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 04/03/2018 Appointment: Laney Luther WPtel: [address] [place], [place] [id number] (15 min) Moderate 04/03/2018 Patient Education: Patient Medication Summary Completed 04/03/2018 [phone] [facility] 03/31/2018 Patient Education: Patient [...] control. 01/27/2018 [facility]ment: [phone] ([facility] 01/27/2018 Patient Education: Patient [...] Summary Completed 01/21/2018 [facility]ment: [phone] ([facility]) Moderate 01/13/2018 Patient Education: Patient [...] control. 01/06/2018 Appointment: Laney Luther WPtel: [phone] [facility] [place] (15 min) Moderate 01/06/2018 Patient [...] to medications. 12/31/2017 Appointment: Laney Luther WPtel: [address] [place], [place] [id number] (30 min) [facility] 12/31/2017 Patient Education: Patient Medication Summary Completed [...] acute concerns. 10/08/2017 Appointment: [phone] [place] ([place] min) Complex 10/08/2017 Patient Education: Patient Medication Summary Completed 10/08/2017 Appointment: Lane[phone] [place] (15 min) Moderate 10/07/2017 Visit Plan: [...] acute concerns. 08/27/2017 Appointment: Lane[phone] [place] ([place] min) Complex 08/27/2017 Patient Education: [...] medications. 06/25/2017 Appointment: [phone] ([facility]) Complex 06/25/2017 Patient Education: Patient Medication Summary Completed 06/25/2017 Appointment: [phone] [place] (30 min) Complex 06/24/2017 Visit Plan: [...] medications. 06/10/2017 Appointment: Debra Ramirez WPtel: [phone] (30 min) Complex 06/10/2017 Patient Education: [...] control. 05/20/2017 Appointment: Laney Luther WPtel: [facility] [address] New Patient 05/20/2017 Patient Education: Patient Medication Summary Completed 05/20/2017 Referral: Christian Johnson [address] Referral Initiated Referral: Kevin Cuevas Referral [...] blood glucose control. GET RECENT LABS FROM [facility] FASTING LABS NEXT WEEK UNLESS WE CALL [...]
--- OUTSIDE RECORDS SUMMARY | 2020-02-09 06:59 | XMS REPORT | CCD ---
Author Author Gunnar Luther Organization Karo Guerrero MD, [facility] Address [address] [place] [address] Phone Care Team Providers [employer] Program Director Name Role Phone PP Unavailable CCM Unavailable Summary Purpose Interface Exchange Insurance Providers Payer name Policy type / Coverage type Covered green party ID Effective Begin Date Effective End Date WPS Medicare Part B Medicare Part B [id number] Unknown Aetna Medicare Part B AH [id number] Unknown Cigna Medicare Part B 80 [id number] Unknown Family history Sister Diagnosis Age At [...] ed reddy 05/20/[address]: 761380951 Never smoker 05/20/[address]: 927455761 Never drinks alcohol 05/20/2017 Allergies, Adverse Reactions, Alerts Substance Reaction Codes Entered Date Inactivated Date Status Penicillin Unknown 05/20/2017 No In active Date Active PENICILLINS Unknown 05/20/2017 No In active Date Active Past Medical History Illness Codes Condition Status Onset Date Resolved Date Bitten or stung by n onvenomous insect and other nonvenomous arthropods, initial encounter ICD-9: 919.4 ICD-10: W57.XXXA Active 04/03/2018 Unknown Cellulitis of right lower limb ICD-9: 682.6 ICD-10: L03.115 Active 01/25/2019 Unknown Essential (primary) hypertension ICD-9: 401.1 ICD-10: I10 Active 05/20/2017 Unknown Type 2 diabetes stevo itus with hyperglycemia ICD-9: 250.02 ICD-10: E11.65 Active 05/20/2017 Unknown Mixed hyperlipidemia ICD-9: 272.2 ICD-10: E78.2 [...] Condition Codes Effectiv e Dates Condition Status Bitten or stung by n onvenomous insect and other nonvenomous arthropods, initial encounter ICD-9: 919.4 ICD-10: W57.XXXA 04/03/2018 Active Cellulitis of right lower limb ICD-9: 682.6 ICD-10: L03.115 01/25/2019 Active Essential (primary) hypertension ICD-9: 401.1 ICD-10: I10 05/20/2017 Active Type 2 diabetes stevo itus with hyperglycemia ICD-9: 250.02 ICD-10: E11.65 05/20/2017 Active Mixed hyperlipidemia ICD-9: 272.2 ICD-10: E78.2 [...] mupirocin 2 % topica l ointment RxNorm: 697578 1 Application TOP BID 02/19/2019 No Stop Date Active doxycycline hyclate 100 mg capsule RxNorm: 1283181 1 Capsule(s) PO BID 02/19/2019 03/04/2019 Ac tive metformin ER 750 mg tablet,extended release 24 hr RxNorm: 912741 2 TABLET(S) PO DAILY 02/16/2019 08/14/2019 Ac tive doxycycline hyclate 100 mg capsule RxNorm: 9006941 1 Capsule(s) PO BID 02/04/2019 02/07/2019 In active extending out to 14 days doxycycline hyclate 100 mg capsule RxNorm: 2891956 1 Capsule(s) PO BID 01/25/2019 02/03/2019 In active glimepiride 2 mg tablet RxNorm: 402641 TAKE 1 TABLET BY MOUTH TWICE DAILY FOR D IABETES 01/07/2019 01/01/2020 Active diltiazem CD 360 mg capsule,extended release 24 hr RxNorm: 119516 1 CAPSULE(S) PO QHS 12/29/2018 12/23/2019 Ac tive atenolol 50 mg-chlor thalidone 25 mg tablet RxNorm: 988645 1 TABLET(S) PO DAILY 12/17/2018 12/11/2019 Ac tive PLEASE SEND REFILL REQUESTS ELECTRONICAL LY metformin ER 750 mg tablet,extended release 24 hr RxNorm: 829701 2 TABLET(S) PO DAILY 12/17/2018 06/14/2019 Ac tive metformin ER 750 mg tablet,extended release 24 hr RxNorm: 134727 2 TABLET(S) PO DAILY 11/13/2018 12/16/2018 Inactive Tradjenta 5 mg tablet RxNorm: 6589462 TAKE 1 TABLET BY MOUTH DAILY 10/16/2018 03/14/2019 Ac tive Kenalog 40 mg/mL benitez pension for injection RxNorm: 5528122 1 Milliliter(s) Inj 10/15/2018 10/15/2018 In active Tradjenta 5 mg tablet RxNorm: 9909552 TAKE 1 TABLET BY MOUTH DAILY 09/18/2018 02/14/2019 In active metformin ER 750 mg tablet,extended release 24 hr RxNorm: 980663 2 TABLET(S) PO DAILY 07/13/2018 11/09/2018 Inactive Tradjenta 5 mg tablet RxNorm: 3532384 TAKE 1 TABLET BY MOUTH DAILY 07/02/2018 09/17/2018 In active One Touch Test strips RxNorm: 1 Miscellaneous BID 06/29/2018 07/28/2018 Inactive Zyrtec 10 mg tablet RxNorm: 2434806 1 Tablet(s) PO daily 04/27/2018 05/26/2018 Inactive doxycycline hyclate 100 mg capsule RxNorm: 2226370 1 Capsule(s) PO BID 04/03/2018 04/12/2018 In active meclizine 25 mg tablet RxNorm: 344868 1 Tablet(s) PO TID as needed Dizziness 04/03/2018 04/07/2018 In active metformin ER 750 mg tablet,extended release 24 hr RxNorm: 611070 2 TABLET(S) PO DAILY 02/03/2018 06/02/2018 Inactive glimepiride 2 mg tablet RxNorm: 561704 TAKE 1 TABLET BY MOUTH TWICE DAILY FOR D IABETES 01/13/2018 04/07/2019 Active glimepiride 2 mg tablet RxNorm: 044744 TAKE 1 TABLET BY MOUTH TWICE DAILY FOR D IABETES 01/11/2018 01/05/2019 Inactive diltiazem CD 360 mg capsule,extended release 24 hr RxNorm: 166960 1 CAPSULE(S) PO QHS 01/02/2018 12/27/2018 Inactive atenolol 50 mg-chlor thalidone 25 mg tablet RxNorm: 143617 1 Tablet(s) PO daily 12/18/2017 12/12/2018 In active PLEASE SEND REFILL REQUESTS ELECTRONICAL LY Tradjenta 5 mg tablet RxNorm: 9933544 TAKE 1 TABLET BY MOUTH DAILY 12/15/2017 05/13/2018 In active metformin ER 750 mg tablet,extended release 24 hr RxNorm: 567509 2 TABLET(S) PO DAILY 11/05/2017 12/16/2018 Inactive metformin ER 750 mg tablet,extended release 24 hr RxNorm: 396984 2 TABLET(S) PO DAILY 11/03/2017 02/02/2018 Inactive atorvastatin 20 mg t ablet RxNorm: 061505 TAKE 1 TABLET BY MOUT H EVERY NIGHT AT BEDTIME FOR CHOLESTEROL 08/28/2017 08/22/2018 Inactive Zithromax Z-Maury 250 mg tablet RxNorm: 098670 1 Tablet(s) PO UD 08/15/2017 04/13/2018 Inactive Tamiflu 75 mg capsule RxNorm: 780982 1 Capsule(s) PO BID 08/15/2017 08/14/2017 Inactive Tamiflu 75 mg capsule RxNorm: 213598 1 Capsule(s) PO BID 08/15/2017 08/19/2017 Inactive Tradjenta 5 mg tablet RxNorm: 2965069 TAKE 1 TABLET BY MOUTH DAILY 08/12/2017 12/09/2017 In active metformin ER 750 mg tablet,extended release 24 hr RxNorm: 982951 TAKE 2 TABLET BY MOUT H ONCE A DAY DIRECTED 08/08/2017 12/16/2018 Inactive SAVINGS FOR NON-COVERED MED ICATIONS Claims: BIN: [id number], PCN: [id number], GROUP: [id number], Patient ID: [id number] Phone; Questions: [facility] [phone] metformin ER 750 mg tablet,extended release 24 hr RxNorm: 569326 2 Tablet(s) PO daily 08/07/2017 08/06/2017 Inactive metformin ER 750 mg tablet,extended release 24 hr RxNorm: 767564 2 Tablet(s) PO daily 08/07/2017 11/02/2017 Inactive glimepiride 2 mg tablet RxNorm: 588674 TAKE 1 TABLET BY MOUTH TWICE DAILY FOR D IABETES 07/18/2017 01/10/2018 Inactive diltiazem CD 360 mg capsule,extended release 24 hr RxNorm: 123614 1 Capsule(s) PO QHS 07/03/2017 12/29/2017 Inactive One Touch Test strips RxNorm: 1 Miscellaneous daily 05/30/2017 06/28/2017 Inactive One Touch Test strips RxNorm: 1 Miscellaneous daily 05/30/2017 05/29/2017 Inactive iron gluconate-B cmp lx-potassium iodide-minerals oral RxNorm: 17744 oral No Start Date Active Super B Complex 100 tablet RxNorm: 1 Tablet(s) PO daily No Start Date Active Glucosamine Chondroi tin Maximum Strength oral RxNorm: 4845 oral No Start Date Active garlic 1,000 mg capsule RxNorm: 299509 1 Capsule(s) PO BID No Start Date Active vitamin E (dl, aceta te) 400 unit capsule RxNorm: 792166 1 Capsule(s) PO daily No Start Date Active beta carotene 25,000 unit tablet RxNorm: 110319 1 Tablet(s) PO daily No Start Date Active rutin 500 mg tablet RxNorm: 383691 1/2 Tablet(s) PO daily No Start Date Active Calcium 600 + [place] ls oral RxNorm: 518638 oral No S tart Date Active Vitamin D3 1,000 uni t tablet RxNorm: 774663 1 Tablet(s) PO daily No Start Date Active Vitamin C 500 mg tablet RxNorm: 349085 1 Tablet(s) PO daily No Start Date Active acidophilus 25 susanne on cell-pectin, citrus 100 mg tablet RxNorm: 019354 1 Tablet(s) PO BID No Start Date Active Zinc and C oral RxNorm: oral No Start Date Active aspirin 81 mg chewab le tablet RxNorm: 171946 1 Tablet(s) PO QPM No Start Date Active Zegerid OTC 20 mg-1. 1 gram capsule RxNorm: 173314 1 Capsule(s) PO daily No Start Date Active magnesium 250 mg tablet RxNorm: 1 Tablet(s) PO daily No Start Date Active flaxseed oil 1,000 m g capsule RxNorm: 141771 1 Capsule(s) PO BID No Start Date Active milk thistle 175 mg tablet RxNorm: 227190 1 Tablet(s) PO daily No Start Date Active metformin ER 750 mg tablet,extended release 24 hr RxNorm: 455324 2 Tablet(s) PO daily No Start Date 08/06/2017 Inactive atorvastatin 20 mg t ablet RxNorm: 439286 1 Tablet(s) PO daily No Start Date 08/27/2017 Inactive Tradjenta 5 mg tablet RxNorm: 5263847 1 Tablet(s) PO daily No Start Date 08/11/2017 Inactive diltiazem ER 300 mg tablet,extended release 24 hr RxNorm: 273589 1 Tablet(s) PO daily No Start Date 05/18/2017 Inactive glimepiride 2 mg tablet RxNorm: 182607 1 Tablet(s) PO BID No Start Date 07/17/2017 Inactive Zithromax Z-Maury 250 mg tablet RxNorm: 391331 1 Tablet(s) PO UD No Start Date 08/14/2017 Inactive atenolol 50 mg-chlor thalidone 25 mg tablet RxNorm: 065175 1 Tablet(s) PO daily No Start Date 12/17/2017 Inactive diltiazem CD 360 mg capsule,extended release 24 hr RxNorm: 721108 1 Capsule(s) PO QHS No Start Date 07/02/2017 Inactive Medication Administered Medication Codes Instruc tions Start Date Status Kenalog 40 mg/mL suspension for injection RxNorm: 8698191 1Milliliter 10/15/2018 N o longer Active Immunizations Vaccine Codes Date Status Influenza CVX: 141 06/24 completed Influenza CVX: 141 06/09 completed Assessments Condition Codes Effectiv e Dates Bitten or stung by nonvenomous insect an d other nonvenomous arthropods, subsequent encounter ICD-10: W57.XXXD ICD-9: 919.4 02/19/2019 Cellulitis of right lower limb ICD-1 0: L03.115 ICD-9: 682.6 02/19/2019 Bitten or stung by nonvenomous insect an d other nonvenomous arthropods, initial encounter ICD-10: W57.XXXA ICD-9: 919.4 01/25/2019 Type 2 diabetes mellitus with hyperglycemia ICD-10: E11.65 ICD-9: 250.02 11/16/2018 Essential (primary) hypertension ICD -10: I10 ICD-9: 401.1 11/16/2018 Mixed hyperlipidemia ICD-10: E78.2 ICD-9: 272.2 10/21/2018 [...] Visit Reason For Visit Effective Dates Notes arthropod bite 02/19/2019 arthropod bite 01/25/2019 diabetes [...] Observation Code Item Item Code Result Date Comp Metabolic Gbb062 NA 138 mEq/L 02/22/2019 Comp Metabolic Afn635 K 4.0 mEq/L 02/22/2019 Comp Metabolic Frc435 CL 99 mEq/L 02/22/2019 Comp Metabolic Exk567 CO2 29.0 mEq/L 02/22/2019 Comp Metabolic Uzv343 AN ION GAP 14 02/22/2019 Comp Metabolic Dxc116 GL UCOSE 137 mg/dL 02/22/2019 Comp Metabolic Imn218 Cr eat 1.2 mg/dL 02/22/2019 Comp Metabolic Dox924 eG FR 62 ml/min/1.73m2 02/22 Comp Metabolic Rih643 BUN 26 mg/dL 02/22/2019 Comp Metabolic Imc518 B/ C Ratio 22.0 Ratio 02/22/2019 Comp Metabolic Sum107 CA LCIUM 9.8 mg/dL 02/22/2019 Comp Metabolic Paa462 AL K PHOS 41 U/L 02/22/2019 Comp Metabolic Aou696 T(SGOT) 18 U/L 02/22/2019 Comp Metabolic Gnp479 AL T(SGPT) 20 U/L 02/22/2019 Comp Metabolic Vzm079 BI LI T 0.4 mg/dL 02/22/2019 Comp Metabolic Cno379 AL BUMIN 4.4 g/dL 02/22/2019 Comp Metabolic Swn830 TP RO 6.8 g/dL 02/22/2019 Comp Metabolic Ifi878 GL OB 2.4 g/dL 02/22/2019 Comp Metabolic Nnz530 A/ G Ratio 1.8 Ratio 02/22/2019 Comp Metabolic Zrq463 Os mo 283 mOsmo 02/22/2019 Comp Metabolic Tup967 NA 137 mEq/L 11/09/2018 Comp Metabolic Djf361 K 4.4 mEq/L 11/09/2018 Comp Metabolic Cqo866 CL 97 mEq/L 11/09/2018 Comp Metabolic Jum401 CO2 30.0 mEq/L 11/09/2018 Comp Metabolic Fcn095 AN ION GAP 14 11/09/2018 Comp Metabolic Ata433 GL UCOSE 122 mg/dL 11/09/2018 Comp Metabolic Cau107 Cr eat 1.1 mg/dL 11/09/2018 Comp Metabolic Wip659 eG FR 70 ml/min/1.73m2 11/09 Comp Metabolic Uds138 BUN 21 mg/dL 11/09/2018 Comp Metabolic Fvk402 B/ C Ratio 19.6 Ratio 11/09/2018 Comp Metabolic Fwb640 CA LCIUM 10.2 mg/dL 11/09/2018 Comp Metabolic Qcc085 AL K PHOS 45 U/L 11/09/2018 Comp Metabolic Biq537 T(SGOT) 19 U/L 11/09/2018 Comp Metabolic Lvt609 AL T(SGPT) 24 U/L 11/09/2018 Comp Metabolic Gfm536 BI LI T 0.5 mg/dL 11/09/2018 Comp Metabolic Hyi125 AL BUMIN 4.4 g/dL 11/09/2018 Comp Metabolic Exi475 TP RO 6.7 g/dL 11/09/2018 Comp Metabolic Dwg138 GL OB 2.3 g/dL 11/09/2018 Comp Metabolic Dly379 A/ G Ratio 1.9 Ratio 11/09/2018 Comp Metabolic Dhd977 Os mo 278 mOsmo 11/09/2018 Cbc With [...] 32.0 pg 11/09/2018 Cbc With Differential Ord2 [place]% 9.8 % 11/09/2018 Cbc With Differential Ord2 [...] 2.13 K/ul 11/09/2018 Cbc With Differential Ord2 [place] ABS# 0.8 K/ul 11/09/2018 Cbc With Differential Ord2 Eos ABS# 0.1 K/ul 11/09/2018 Cbc With Differential Ord2 Baso ABS# 0.0 K/ul 11/09/2018 %Hba1C Jrb931 % HbA1c 30559-9 6.7 % 11/09/2018 %Hba1C Kae312 Gluc Ave 146 mg/dL 11/09/2018 Tsh Ord6 [...] 31.4 pg 08/03/2018 Cbc With Differential Ord2 [place]% 11.9 % 08/03/2018 Cbc With Differential Ord2 [...] 1.62 K/ul 08/03/2018 Cbc With Differential Ord2 [place] ABS# 0.9 K/ul 08/03/2018 Cbc With Differential Ord2 Eos ABS# 0.1 K/ul 08/03/2018 Cbc With Differential Ord2 Baso ABS# 0.0 K/ul 08/03/2018 Comp Metabolic Vjd694 NA 135 mEq/L 08/03/2018 Comp Metabolic Lhs229 K 3.5 mEq/L 08/03/2018 Comp Metabolic Mcp512 CL 95 mEq/L 08/03/2018 Comp Metabolic Rie374 CO2 30.0 mEq/L 08/03/2018 Comp Metabolic Wfz732 AN ION GAP 14 08/03/2018 Comp Metabolic Afo859 GL UCOSE 152 mg/dL 08/03/2018 Comp Metabolic Zkl176 Cr eat 1.2 mg/dL 08/03/2018 Comp Metabolic Ryq212 eG FR 61 ml/min/1.73m2 08/03 Comp Metabolic Gyh094 BUN 23 mg/dL 08/03/2018 Comp Metabolic Tly248 B/ C Ratio 19.0 Ratio 08/03/2018 Comp Metabolic Tvh473 CA LCIUM 9.6 mg/dL 08/03/2018 Comp Metabolic Liu563 AL K PHOS 51 U/L 08/03/2018 Comp Metabolic Gke186 T(SGOT) 20 U/L 08/03/2018 Comp Metabolic Ext807 AL T(SGPT) 24 U/L 08/03/2018 Comp Metabolic Ilf213 BI LI T 0.5 mg/dL 08/03/2018 Comp Metabolic Ctc513 AL BUMIN 4.3 g/dL 08/03/2018 Comp Metabolic Dam511 TP RO 6.8 g/dL 08/03/2018 Comp Metabolic Hpl702 GL OB 2.6 g/dL 08/03/2018 Comp Metabolic Uvj980 A/ G Ratio 1.7 Ratio 08/03/2018 Comp Metabolic Mpy084 Os mo 277 mOsmo 08/03/2018 %Hba1C Lwn693 % HbA1c 75529-2 7.3 % 08/03/2018 %Hba1C Ake548 Gluc Ave 163 mg/dL 08/03/2018 Cbc With [...] 31.2 pg 05/14/2018 Cbc With Differential Ord2 [place]% 12.2 % 05/14/2018 Cbc With Differential Ord2 [...] 1.81 K/ul 05/14/2018 Cbc With Differential Ord2 [place] ABS# 1.0 K/ul 05/14/2018 Cbc With Differential Ord2 Eos ABS# 0.1 K/ul 05/14/2018 Cbc With Differential Ord2 Baso ABS# 0.0 K/ul 05/14/2018 Ehrlichia Chaffeensis Antibody Igm [id number] EHRLICHIA CHAFFEENSIS IGM < 1:16 04/09/2018 Ehrlichia Chaffeensis Antibody Igg [id number] EHRLICHIA CHAFFEENSIS IGG 1:64 04/09/2018 [place] Spotted Fever Igg/Igm 34087 3 [place] SPOTTED FEVER IGM EIA . 04/09/2018 [place] Spotted Fever Igg/Igm 23948 3 RMSF, IGM 0.36 index 04/09/2018 [place] Spotted Fever Igg/Igm 99414 3 LOTUS MT SPOTTED FEVER IGG EIA FLEX . 04/09/2018 [place] Spotted Fever Igg/Igm 86628 3 RMSF, IGG SCREEN-FLEX Negative 04/09/2018 [place]ymes Disease Total Antibodies With Western Blot Refle x [id number] B. BURGDORFERI, IGG/IGM 0.31 04/07/2018 [place]ymes Disease Total Antibodies With Western Blot Refle x [id number] INTERPRETATION 04/07/2018 %Hba1C Fts672 % HbA1c 53068-3 7.2 % 03/31/2018 %Hba1C Phi798 Gluc Ave 160 mg/dL 03/31/2018 Lipid Ord30 [...] 31.3 pg 12/22/2017 Cbc With Differential Ord2 [place]% 11.5 % 12/22/2017 Cbc With Differential Ord2 [...] 2.16 K/ul 12/22/2017 Cbc With Differential Ord2 [place] ABS# 1.1 K/ul 12/22/2017 Cbc With Differential Ord2 Eos ABS# 0.1 K/ul 12/22/2017 Cbc With Differential Ord2 Baso ABS# 0.0 K/ul 12/22/2017 Comp Metabolic Fpr774 NA 141 mEq/L 12/22/2017 Comp Metabolic Oce516 K 3.9 mEq/L 12/22/2017 Comp Metabolic Muo461 CL 99 mEq/L 12/22/2017 Comp Metabolic Vwm135 CO2 32.0 mEq/L 12/22/2017 Comp Metabolic Eak532 AN ION GAP 14 12/22/2017 Comp Metabolic Yvo001 GL UCOSE 152 mg/dL 12/22/2017 Comp Metabolic Knc617 Cr eat 1.0 mg/dL 12/22/2017 Comp Metabolic Cft480 eG FR 78 ml/min/1.73m2 12/22 Comp Metabolic Vwn290 BUN 27 mg/dL 12/22/2017 Comp Metabolic Ueb053 B/ C Ratio 27.8 Ratio 12/22/2017 Comp Metabolic Fpm434 CA LCIUM 9.7 mg/dL 12/22/2017 Comp Metabolic Blx488 AL K PHOS 56 U/L 12/22/2017 Comp Metabolic Ota149 T(SGOT) 18 U/L 12/22/2017 Comp Metabolic Zrm495 AL T(SGPT) 20 U/L 12/22/2017 Comp Metabolic Ria168 BI LI T 0.4 mg/dL 12/22/2017 Comp Metabolic Mdk188 AL BUMIN 4.2 g/dL 12/22/2017 Comp Metabolic Xmz037 TP RO 6.4 g/dL 12/22/2017 Comp Metabolic Uwf153 GL OB 2.2 g/dL 12/22/2017 Comp Metabolic Bmx509 A/ G Ratio 1.9 Ratio 12/22/2017 Comp Metabolic Von212 Os mo 289 mOsmo 12/22/2017 %Hba1C Zng542 % HbA1c 72422-8 7.1 % 12/22/2017 %Hba1C Hux880 Gluc Ave 157 mg/dL 12/22/2017 Cbc With [...] 31.5 pg 09/22/2017 Cbc With Differential Ord2 [place]% 8.4 % 09/22/2017 Cbc With Differential Ord2 [...] 1.83 K/ul 09/22/2017 Cbc With Differential Ord2 [place] ABS# 0.9 K/ul 09/22/2017 Cbc With Differential Ord2 Eos ABS# 0.0 K/ul 09/22/2017 Cbc With Differential Ord2 Baso ABS# 0.0 K/ul 09/22/2017 %Hba1C Hqr210 % HbA1c 01273-5 6.9 % 09/22/2017 %Hba1C Uec569 Gluc Ave 151 mg/dL 09/22/2017 Tsh Ord6 [...] 31.6 pg 06/17/2017 Cbc With Differential Ord2 [place]% 11.1 % 06/17/2017 Cbc With Differential Ord2 [...] 2.35 K/ul 06/17/2017 Cbc With Differential Ord2 [place] ABS# 1.2 K/ul 06/17/2017 Cbc With Differential Ord2 Eos ABS# 0.1 K/ul 06/17/2017 Cbc With Differential Ord2 Baso ABS# 0.0 K/ul 06/17/2017 %Hba1C Xtw594 % HbA1c 66069-3 7.3 % 06/17/2017 %Hba1C Vnv328 Gluc Ave 163 mg/dL 06/17/2017 Comp Metabolic Pgw878 NA 137 mEq/L 06/17/2017 Comp Metabolic Rdf541 K 3.8 mEq/L 06/17/2017 Comp Metabolic Veo895 CL 98 mEq/L 06/17/2017 Comp Metabolic Zlz184 CO2 30.0 mEq/L 06/17/2017 Comp Metabolic Ohn965 AN ION GAP 13 06/17/2017 Comp Metabolic Nhw169 GL UCOSE 157 mg/dL 06/17/2017 Comp Metabolic Jut350 Cr eat 1.0 mg/dL 06/17/2017 Comp Metabolic Ezz279 eG FR 76 ml/min/1.73m2 06/17 Comp Metabolic Nzh014 BUN 18 mg/dL 06/17/2017 Comp Metabolic Dxr481 B/ C Ratio 18.0 Ratio 06/17/2017 Comp Metabolic Sdn682 CA LCIUM 9.8 mg/dL 06/17/2017 Comp Metabolic Knq986 AL K PHOS 57 U/L 06/17/2017 Comp Metabolic Mjz098 T(SGOT) 19 U/L 06/17/2017 Comp Metabolic Tcy235 AL T(SGPT) 23 U/L 06/17/2017 Comp Metabolic Zry961 BI LI T 0.6 mg/dL 06/17/2017 Comp Metabolic Kmw058 AL BUMIN 4.4 g/dL 06/17/2017 Comp Metabolic Rad976 TP RO 6.8 g/dL 06/17/2017 Comp Metabolic Fuv487 GL OB 2.4 g/dL 06/17/2017 Comp Metabolic Xdj140 A/ G Ratio 1.9 Ratio 06/17/2017 Comp Metabolic Ikn318 Os mo 279 mOsmo 06/17/2017 Review of Systems System Result Effective Dates Constitutional No recent illness 02/19/2019 Constitutional No [...] Result Effective Dates Notes Full Exam - Dermatology Constitutional general appearance [...] normal 11/16/2018 None Full Exam - General 1994 Ears/Nose/Throat lips/teeth/gingiva Overall: benign lips 11/16/2018 None Full Exam - General 1994 Ears/Nose/Throat [...] clear 06/22/2018 None Full Exam - General 1995 Ears/Nose/Throat oral cavity/pharynx/larynx Posterior Pharynx: clear post [...] nourished 05/14/2018 None Full Exam - General 1995 Eyes conjunctiva/eyelids Overall: conjunctiva clear 05/14/2018 None [...] time 04/27/2018 None Full Exam - General 1994 Constitutional general appearance Overall: well developed 04/03/2018 None Full Exam - General 1994 Constitutional general appearance Overall: in no acute distress 04/03/2018 None Full Exam - General 1995 Constitutional general appearance Overall: well nourished 04/03/2018 None Full Exam - General 1994 Eyes conjunctiva/eyelids Overall: conjunctiva clear 04/03/2018 None Full Exam - General 1995 Eyes conjunctiva/eyelids Overall: cornea clear 04/03/2018 None Full Exam - General 1995 Eyes conjunctiva/eyelids Overall: eyelids normal 04/03/2018 None Full Exam - General 1995 Ears/Nose/Throat lips/teeth/gingiva Overall: benign lips 04/03/2018 None Full Exam - General 1995 Ears/Nose/Throat [...] developed 01/27/2018 None Full Exam - General 1994 Constitutional general appearance Overall: in no acute distress 01/27/2018 None Full Exam - General 1994 Constitutional general appearance Overall: well nourished 01/27/2018 None Full Exam - General 1994 Eyes conjunctiva/eyelids Overall: eyelids normal 01/27/2018 None [...] skin Location: scalp 10/08/2017 [place] - right jewish, mid fo rehead/scalp, left posterior neck - [...] skin Location: scalp 08/27/2017 [place] - right jewish, mid fo rehead/scalp - cryotherapy to area, [...] CPT-4: J3301 10/15/2018 THER/PROPH/DIAG INJ SC/IM CPT-4: 58027 10/15/2018 ADMIN INFLUENZA VIRU S VAC CPT-4: G0008 06/24/2018 FLU VACC PRSV FREE I NC ANTIG CPT-4: 60172 06/24/2018 GLUC MONITOR CONT PH YS I&R CPT-4: 77006 01/27/2018 PPPS, SUBSEQ VISIT CPT- 4: G0439 01/21/2018 GLUCOSE MONITORING CONT CPT-4: 85924 01/06/2018 ADMIN INFLUENZA VIRU S VAC CPT-4: G0008 06/09/2017 FLU VACC PRSV FREE I NC ANTIG CPT-4: 59127 06/09/2017 Vital Signs Date Vital 02/19/2019 Blood Pressure 1: 136/78 Code: 8480-6 Heart Rate 1: 70 bpm Height: SpO2: 98% Weight: 01/25/2019 Blood Pressure 1: 140/74 Code: 8480-6 BMI: 32.8 Code: 18345-8 Heart Rate 1: 60 bpm Height: 5'8" SpO2: 96% Weight: 216 lbs 11/16/2018 Blood Pressure 1: 154/90 Code: 8480-6 BMI: 33.1 Code: 64531-5 Heart Rate 1: 84 bpm Height: 5'8" SpO2: 96% Weight: 218 lbs 10/15/2018 Blood Pressure 1: 140/70 Code: 8480-6 BMI: 33.5 Code: 57823-1 Heart Rate 1: 72 bpm Height: 5'8" SpO2: 98% Weight: 220 lbs 08/05/2018 Blood Pressure 1: 132/56 Code: 8480-6 BMI: 34.5 Code: 00757-8 Heart Rate 1: 65 bpm Height: 5'8" SpO2: 95% Weight: 227 lbs 06/22/2018 Blood Pressure 1: 144/86 Code: 8480-6 BMI: 36.0 Code: 75909-8 Heart Rate 1: 74 bpm Height: 5'8" SpO2: 98% Weight: 237 lbs 05/14/2018 Blood Pressure 1: 132/72 Code: 8480-6 Height: Weight: 04/27/2018 Blood Pressure 1: 148/78 Code: 8480-6 BMI: 35.6 Code: 46405-2 Heart Rate 1: 77 bpm Height: 5'8" SpO2: 97% Weight: 234 lbs 04/03/2018 Blood Pressure 1: 156/80 Code: 8480-6 BMI: 35.4 Code: 16541-4 Heart Rate 1: 70 bpm Height: 5'8" SpO2: 97% Weight: 233 lbs 01/27/2018 BMI: 35.6 Code: 81702-1 Heart Rate 1: 86 bpm Height: 5'8" SpO2: 98% Weight: 234 lbs 01/21/2018 Heigh t: Weight: 01/06/2018 Heigh t: Weight: 12/31/2017 Blood Pressure 1: 140/86 Code: 8480-6 BMI: 34.2 Code: 83070-1 Heart Rate 1: 80 bpm Height: 5'8" SpO2: 98% Weight: 225 lbs 10/08/2017 Blood Pressure 1: 152/74 Code: 8480-6 BMI: 34.2 Code: 80763-1 Heart Rate 1: 67 bpm Height: 5'8" SpO2: 98% Weight: 225 lbs 08/27/2017 Blood Pressure 1: 144/82 Code: 8480-6 BMI: 34.2 Code: 49953-9 Heart Rate 1: 70 bpm Height: 5'8" SpO2: 98% Weight: 225 lbs 06/10/2017 Blood Pressure 1: 150/84 Code: 8480-6 BMI: 35.0 Code: 92515-1 Heart Rate 1: 67 bpm Height: 5'8" SpO2: 98% Weight: 230 lbs 05/20/2017 Blood Pressure 1: 146/76 Code: 8480-6 BMI: 35.3 Code: 51799-1 Heart Rate 1: 70 bpm Height: 5'8" SpO2: 98% Weight: 232 lbs Functional Status No Functional Status data History of Present Illness Symptom Name Status Resu lt Effective Date Notes Location on the right leg 02/19/2019 01/22/2019 [...] No Advance Directive data Encounters Encounter Performer Loca tion Codes Date EST. PATIENT, LEVEL III Diagnosis: Cellulitis of right lower limb[ICD10: L03.115] Diagnosis: Bitten or stung by nonvenomous insect and other nonvenomous arthropods, subsequent encounter[ICD10: W57.XXXD] Laney Guerrero MD, [facility] CPT-4: 54228 02/19/2019 [id number] EST. PATIENT, LEVEL III Diagnosis: Cellulitis of right lower limb[ICD10: L03.115] Diagnosis: Bitten or stung by nonvenomous insect and other nonvenomous arthropods, initial encounter[ICD10: W57.XXXA] Laney Guerrero MD, [facility] CPT-4: 74394 01/25/2019 [id number] EST. PATIENT, LEVEL III Diagnosis: Type 2 diabetes mellitus with hyperglycemia[ICD10: E11.65] Diagnosis: Essential (primary) hypertension[ICD10: I10] Laney Guerrero MD, [facility] CPT-4: 17492 11/16/2018 [id number] EST. PATIENT, LEVEL IV Diagnosis: Other acute sinusitis[ICD10: J01.80] Diagnosis: Other allergic rhinitis[ICD10: J30.89] Laney Guerrero MD, [facility] CPT-4: 34822 10/15/2018 [id number] EST. PATIENT, LEVEL III Diagnosis: Type 2 diabetes mellitus with hyperglycemia[ICD10: E11.65] Laney Guerrero MD, [facility] CPT-4: 37381 08/05/2018 [id number] EST. PATIENT, LEVEL III Diagnosis: Type 2 diabetes mellitus with hyperglycemia[ICD10: E11.65] Laney Guerrero MD, [facility] CPT-4: 69684 06/22/2018 [id number] EST. PATIENT, LEVEL IV Diagnosis: Diplopia[ICD10: H53.2] Diagnosis: Other specified anemias[ICD10: D64.89] Laney Guerrero MD, [facility] CPT-4: 85255 05/14/2018 [id number] EST. PATIENT, LEVEL III Diagnosis: Benign paroxysmal vertigo, bilateral[ICD10: H81.13] Diagnosis: Other allergic rhinitis[ICD10: J30.89] Laney Guerrero MD, [facility] CPT-4: 25355 04/27/2018 [id number] EST. PATIENT, LEVEL III Diagnosis: Type 2 diabetes mellitus with hyperglycemia[ICD10: E11.65] Diagnosis: Other fatigue[ICD10: R53.83] Diagnosis: Other malaise[ICD10: R53.81] Diagnosis: Bitten or stung by nonvenomous insect and other nonvenomous arthropods, initial encounter[ICD10: W57.XXXA] Diagnosis: Cellulitis of right upper limb[ICD10: L03.113] Diagnosis: Mixed hyperlipidemia[ICD10: E78.2] Laney Guerrero MD, [facility] CPT-4: 94497 04/03/2018 ([id number]) 02543 EST. P ATIENT, LEVEL III Diagnosis: Type 2 diabetes mellitus with hyperglycemia[ICD10: E11.65] Laney Guerrero MD, [facility] CPT-4: 20015 01/27/2018 ([id number]) Miscellaneou s no charge Diagnosis: Type 2 diabetes mellitus with hyperglycemia[ICD10: E11.65] Laney Guerrero MD, [facility] CPT-4: 60819 01/13/2018 98620 EST. PATIENT, LEVEL III Diagnosis: Type 2 diabetes mellitus with hyperglycemia[ICD10: E11.65] Diagnosis: Essential (primary) hypertension[ICD10: I10] Diagnosis: Mixed hyperlipidemia[ICD10: E78.2] Laney Guerrero MD, [facility] CPT-4: 60552 12/31/2017 34141 EST. PATIENT, LEVEL III Diagnosis: Type 2 diabetes mellitus with hyperglycemia[ICD10: E11.65] Diagnosis: Essential (primary) hypertension[ICD10: I10] Diagnosis: Mixed hyperlipidemia[ICD10: E78.2] Diagnosis: Actinic keratosis[ICD10: L57.0] Laney Guerrero MD, [facility] CPT-4: 56804 10/08/2017 30498 EST. PATIENT, LEVEL III Diagnosis: Type 2 diabetes mellitus with hyperglycemia[ICD10: E11.65] Diagnosis: Essential (primary) hypertension[ICD10: I10] Diagnosis: Mixed hyperlipidemia[ICD10: E78.2] Diagnosis: Actinic keratosis[ICD10: L57.0] Laney Guerrero MD, [facility] CPT-4: 98185 08/27/2017 44312 EST. PATIENT, LEVEL III Diagnosis: Type 2 diabetes mellitus with hyperglycemia[ICD10: E11.65] Diagnosis: Essential (primary) hypertension[ICD10: I10] Diagnosis: Mixed hyperlipidemia[ICD10: E78.2] Laney Guerrero MD, [facility] CPT-4: 49311 06/25/2017 ([id number]) 74115 EST. 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 The patient was instructed to use the antibiotic ointment as per RX. The patient is to call for any change in symptoms, increase in size of the lesion, increase in pain, worsening redness, warmth, discharge. 02/19/2019 Appointment: Laney Luther WPtel: [phone] [facility] (15 min) Moderate 02/19/2019 Patient Education: Patient [...] warmth, discharge. 01/25/2019 Appointment: Laney Luther WPtel: [phone] [facility] (15 min) Moderate 01/25/2019 Patient Education: Patient [...] glucose control. 11/16/2018 App[facility]ment[phone] [place] (15 min) Moderate 11/16/2018 Appointment: [facility] [place] [place] (30 min) Complex 11/16/2018 Patient Education: Patient Medication Summary Completed 11/16/2018 Patient Education: Diabetes Completed 11/16/2018 Appointment: Laney Luther WPtel: [facility] (15 min) Moderate 11/02/2018 Patient Education: Patient [...] allergy spray. 10/15/2018 Appointment: Laney Luther WPtel: [facility]1 [facility] (30 min) Complex 10/15/2018 Patient Education: Patient Medication Summary Completed 10/15/2018 Patient Education: Obesity Completed 10/15/2018 Visit Plan: Diabetes Mellitus - I nadeem davise recommended for the patient to have follow [...] glucose control. 08/05/2018 Appointment: Laney Luther WPtel: [facility]6 [facility] (15 min) Moderate 08/05/2018 Patient Education: Patient Medication Summary Completed 08/05/2018 Appointment: Laney Luther WPtel: [phone] [facility] (15 min) Moderate 07/17/2018 Referral: Kevin Cuevas [...] glucose control. 06/22/2018 Appointment: Laney Luther WPtel: [facility] (15 min) Moderate 06/22/2018 Patient Education: Patient Medication Summary Completed 06/22/2018 Patient Education: Diabetes Completed 06/22/2018 Care Plan: Referral Order SNOMED-CT : [id number] Pending 06/22/2018 Referral: Alex [facility] Referral Initiated 06/02/2018 Appointment: Nurse Visit 05/18/2018 [...] or concerns. 05/14/2018 Appointment: Laney Luther WPtel: [phone] [facility] (15 min) Moderate 05/14/2018 Patient Education: Patient [...] 04/27/2018 Care Plan: Referral Order SNOMED-CT : [id number] Pending 04/27/2018 Visit Plan: Diabetes Mellitus - [...] months for follow up on the patient's resident program specialist gumaro medical problem and to assure normal liver response to medications. 04/03/2018 Appointment: Laney Luther [facility]Ptel: [facility] (15 min) Moderate 04/03/2018 Patient Education: Patient Medication Summary Completed 04/03/2018 Appointment: Laney Luther WPtel: [facility] [place] (30 min) Complex 03/31/2018 Patient Education: Patient [...] greater blood glucose control. 01/27/2018 Appointment: Laney Luther: [phone] [place] (30 min) Complex 01/27/2018 Patient Education: Patient [...] Patient Medication Summary Completed 01/21/2018 Appointment: [facility] Lutherl: [phone] [place] (15 min) Moderate 01/13/2018 Patient Education: Patient [...] control. 01/06/2018 Appointment: Lane[facility] Luther [facility]: [phone] [place] (15 min) Moderate 01/06/2018 Patient Education: Patient [...] to medications. 12/31/2017 Appointment: Laney Luther WPtel: [facility] [place] (30 min) [facility] 12/31/2017 Patient Education: Patient Medication Summary Completed [...] acute concerns. 10/08/2017 Appointment: Laney Luther WPtel: [phone] [facility] (30 min) Complex 10/08/2017 Patient Education: Patient Medication Summary Completed 10/08/2017 Appointment: Laney Luther WPtel: [phone] [facility] (15 min) Moderate 10/07/2017 Visit Plan: Diabetes [...] acute concerns. 08/27/2017 Appointment: Lane[facility] Luther [facility]: [phone] [place] (30 min) Complex 08/27/2017 Patient Education: Patient Medication Summary Completed 08/27/2017 Visit Plan: Diabetes Mellitus - I h ryane recommended for the patient to have follow [...] medications. 06/25/2017 Appointment: Laney Luther [facility]Ptel: [phone] [place] [place] (30 min) Complex 06/25/2017 Patient Education: Patient Medication Summary Completed 06/25/2017 Appointment: Debra Ramirez [facility]: [phone] [place] [place] (30 min) Complex 06/24/2017 Visit Plan: [...] to medications. 06/10/2017 Appointment: Debra Ramirez WPtel: [facility] [place] [address] (30 min) Complex 06/10/2017 Patient Education: Patient [...] glucose control. 05/20/2017 Appointment: Laney Luther WPtel: [phone] [facility] New Patient 05/20/2017 Patient Education: Patient Medication Summary Completed 05/20/2017 Referral: Christian Johnson [address] Referral Initiated Referral: Kevin Cuevas Referral [...] glucose control. . Double vision - st asher after giving blood on 05/03/18, improved with [...] to medications. . tick bite - The pa tient was instructed in appropriate wound care. [...] blood glucose control. GET RECENT LABS FROM [facility] FASTING LABS NEXT WEEK UNLESS [...] liver response to medications. . Hypertension - e patient has been counseled to cut [...]
--- OUTSIDE RECORDS SUMMARY | 2020-02-09 07:00 | XMS REPORT | CCD ---
Author Author Gunnar Luther Organization Karo Guerrero MD, [facility] Address [address] [place] [address] Phone Care Team Providers Care Billing Services Manager Name Role Phone PP Unavailable CCM Unavailable Summary Purpose Interface Exchange Insurance Providers Payer name Policy type / Coverage type Covered libertarian ID Effective Begin Date Effective End Date WPS Medicare Part B Medicare Part B [id number] Unknown Aetna Medicare Part B AH [id number] Unknown Cigna Medicare Part B 80 [id number] Unknown Family history Sister Diagnosis Age At [...] ed reddy 05/20/[address]: 125473100 Never smoker 05/20/[address]: 780884796 Never drinks alcohol 05/20/2017 Allergies, Adverse Reactions, [...] mupirocin 2 % topica l ointment RxNorm: 415696 1 Application TOP BID 02/19/2019 No Stop Date Active doxycycline hyclate 100 mg capsule RxNorm: 1457016 1 Capsule(s) PO BID 02/19/2019 03/04/2019 Ac tive metformin ER 750 mg tablet,extended release 24 hr RxNorm: 854421 2 TABLET(S) PO DAILY 02/16/2019 08/14/2019 Ac tive doxycycline hyclate 100 mg capsule RxNorm: 3856064 1 Capsule(s) PO BID 02/04/2019 02/07/2019 In active extending out to 14 days doxycycline hyclate 100 mg capsule RxNorm: 5332309 1 Capsule(s) PO BID 01/25/2019 02/03/2019 In active glimepiride 2 mg tablet RxNorm: 485393 TAKE 1 TABLET BY MOUTH TWICE DAILY FOR D IABETES 01/07/2019 01/01/2020 Active diltiazem CD 360 mg capsule,extended release 24 hr RxNorm: 626900 1 CAPSULE(S) PO QHS 12/29/2018 12/23/2019 Ac tive atenolol 50 mg-chlor thalidone 25 mg tablet RxNorm: 971462 1 TABLET(S) PO DAILY 12/17/2018 12/11/2019 Ac tive PLEASE SEND REFILL REQUESTS ELECTRONICAL LY metformin ER 750 mg tablet,extended release 24 hr RxNorm: 514100 2 TABLET(S) PO DAILY 12/17/2018 06/14/2019 Ac tive metformin ER 750 mg tablet,extended release 24 hr RxNorm: 011769 2 TABLET(S) PO DAILY 11/13/2018 12/16/2018 Inactive Tradjenta 5 mg tablet RxNorm: 3191423 TAKE 1 TABLET BY MOUTH DAILY 10/16/2018 03/14/2019 Ac tive Kenalog 40 mg/mL benitez pension for injection RxNorm: 3155650 1 Milliliter(s) Inj 10/15/2018 10/15/2018 In active Tradjenta 5 mg tablet RxNorm: 5583622 TAKE 1 TABLET BY MOUTH DAILY 09/18/2018 02/14/2019 In active metformin ER 750 mg tablet,extended release 24 hr RxNorm: 618621 2 TABLET(S) PO DAILY 07/13/2018 11/09/2018 Inactive Tradjenta 5 mg tablet RxNorm: 0142005 TAKE 1 TABLET BY MOUTH DAILY 07/02/2018 09/17/2018 In active One Touch Test strips RxNorm: 1 Miscellaneous BID 06/29/2018 07/28/2018 Inactive Zyrtec 10 mg tablet RxNorm: 0147051 1 Tablet(s) PO daily 04/27/2018 05/26/2018 Inactive doxycycline hyclate 100 mg capsule RxNorm: 8099652 1 Capsule(s) PO BID 04/03/2018 04/12/2018 In active meclizine 25 mg tablet RxNorm: 801317 1 Tablet(s) PO TID as needed Dizziness 04/03/2018 04/07/2018 In active metformin ER 750 mg tablet,extended release 24 hr RxNorm: 442427 2 TABLET(S) PO DAILY 02/03/2018 06/02/2018 Inactive glimepiride 2 mg tablet RxNorm: 178620 TAKE 1 TABLET BY MOUTH TWICE DAILY FOR D IABETES 01/13/2018 04/07/2019 Active glimepiride 2 mg tablet RxNorm: 957025 TAKE 1 TABLET BY MOUTH TWICE DAILY FOR D IABETES 01/11/2018 01/05/2019 Inactive diltiazem CD 360 mg capsule,extended release 24 hr RxNorm: 474007 1 CAPSULE(S) PO QHS 01/02/2018 12/27/2018 Inactive atenolol 50 mg-chlor thalidone 25 mg tablet RxNorm: 201766 1 Tablet(s) PO daily 12/18/2017 12/12/2018 In active PLEASE SEND REFILL REQUESTS ELECTRONICAL LY Tradjenta 5 mg tablet RxNorm: 2270426 TAKE 1 TABLET BY MOUTH DAILY 12/15/2017 05/13/2018 In active metformin ER 750 mg tablet,extended release 24 hr RxNorm: 595429 2 TABLET(S) PO DAILY 11/05/2017 12/16/2018 Inactive metformin ER 750 mg tablet,extended release 24 hr RxNorm: 515796 2 TABLET(S) PO DAILY 11/03/2017 02/02/2018 Inactive atorvastatin 20 mg t ablet RxNorm: 125688 TAKE 1 TABLET BY MOUT H EVERY NIGHT AT BEDTIME FOR CHOLESTEROL 08/28/2017 08/22/2018 Inactive Zithromax Z-Maury 250 mg tablet RxNorm: 581311 1 Tablet(s) PO UD 08/15/2017 04/13/2018 Inactive Tamiflu 75 mg capsule RxNorm: 812764 1 Capsule(s) PO BID 08/15/2017 08/14/2017 Inactive Tamiflu 75 mg capsule RxNorm: 296116 1 Capsule(s) PO BID 08/15/2017 08/19/2017 Inactive Tradjenta 5 mg tablet RxNorm: 6575261 TAKE 1 TABLET BY MOUTH DAILY 08/12/2017 12/09/2017 In active metformin ER 750 mg tablet,extended release 24 hr RxNorm: 374269 TAKE 2 TABLET BY MOUT H ONCE A DAY DIRECTED 08/08/2017 12/16/2018 Inactive SAVINGS FOR NON-COVERED MED ICATIONS Claims: BIN: [id number], PCN: [id number], GROUP: [id number], Patient ID: [id number] Phone; Questions: Your[facility] [phone] metformin ER 750 mg tablet,extended release 24 hr RxNorm: 737077 2 Tablet(s) PO daily 08/07/2017 08/06/2017 Inactive metformin ER 750 mg tablet,extended release 24 hr RxNorm: 050421 2 Tablet(s) PO daily 08/07/2017 11/02/2017 Inactive glimepiride 2 mg tablet RxNorm: 674489 TAKE 1 TABLET BY MOUTH TWICE DAILY FOR D IABETES 07/18/2017 01/10/2018 Inactive diltiazem CD 360 mg capsule,extended release 24 hr RxNorm: 375178 1 Capsule(s) PO QHS 07/03/2017 12/29/2017 Inactive One Touch Test strips RxNorm: 1 Miscellaneous daily 05/30/2017 06/28/2017 Inactive One Touch Test strips RxNorm: 1 Miscellaneous daily 05/30/2017 05/29/2017 Inactive iron gluconate-B cmp lx-potassium iodide-minerals oral RxNorm: 47759 oral No Start Date Active Super B Complex 100 tablet RxNorm: 1 Tablet(s) PO daily No Start Date Active Glucosamine Chondroi tin Maximum Strength oral RxNorm: 4845 oral No Start Date Active garlic 1,000 mg capsule RxNorm: 766168 1 Capsule(s) PO BID No Start Date Active vitamin E (dl, aceta te) 400 unit capsule RxNorm: 372543 1 Capsule(s) PO daily No Start Date Active beta carotene 25,000 unit tablet RxNorm: 976615 1 Tablet(s) PO daily No Start Date Active rutin 500 mg tablet RxNorm: 497384 1/2 Tablet(s) PO daily No Start Date Active Calcium 600 + [place] ls oral RxNorm: 520458 oral No S tart Date Active Vitamin D3 1,000 uni t tablet RxNorm: 813108 1 Tablet(s) PO daily No Start Date Active Vitamin C 500 mg tablet RxNorm: 602742 1 Tablet(s) PO daily No Start Date Active acidophilus 25 ussanne on cell-pectin, citrus 100 mg tablet RxNorm: 523188 1 Tablet(s) PO BID No Start Date Active Zinc and C oral RxNorm: oral No Start Date Active aspirin 81 mg chewab le tablet RxNorm: 013859 1 Tablet(s) PO QPM No Start Date Active Zegerid OTC 20 mg-1. 1 gram capsule RxNorm: 011923 1 Capsule(s) PO daily No Start Date Active magnesium 250 mg tablet RxNorm: 1 Tablet(s) PO daily No Start Date Active flaxseed oil 1,000 m g capsule RxNorm: 960127 1 Capsule(s) PO BID No Start Date Active milk thistle 175 mg tablet RxNorm: 795889 1 Tablet(s) PO daily No Start Date Active metformin ER 750 mg tablet,extended release 24 hr RxNorm: 998196 2 Tablet(s) PO daily No Start Date 08/06/2017 Inactive atorvastatin 20 mg t ablet RxNorm: 238885 1 Tablet(s) PO daily No Start Date 08/27/2017 Inactive Tradjenta 5 mg tablet RxNorm: 5252973 1 Tablet(s) PO daily No Start Date 08/11/2017 Inactive diltiazem ER 300 mg tablet,extended release 24 hr RxNorm: 355169 1 Tablet(s) PO daily No Start Date 05/18/2017 Inactive glimepiride 2 mg tablet RxNorm: 369123 1 Tablet(s) PO BID No Start Date 07/17/2017 Inactive Zithromax Z-Maury 250 mg tablet RxNorm: 165984 1 Tablet(s) PO UD No Start Date 08/14/2017 Inactive atenolol 50 mg-chlor thalidone 25 mg tablet RxNorm: 526424 1 Tablet(s) PO daily No Start Date 12/17/2017 Inactive diltiazem CD 360 mg capsule,extended release 24 hr RxNorm: 041933 1 Capsule(s) PO QHS No Start Date 07/02/2017 Inactive Medication Administered Medication Codes Instruc tions Start Date Status Kenalog 40 mg/mL suspension for injection RxNorm: 5992459 1Milliliter 10/15/2018 N o longer Active Immunizations [...] Item Item Code Result Date Comp Metabolic Bqr757 NA 137 mEq/L 11/09/2018 Comp Metabolic Dnh679 K 4.4 mEq/L 11/09/2018 Comp Metabolic Arn530 CL 97 mEq/L 11/09/2018 Comp Metabolic Jtg746 CO2 30.0 mEq/L 11/09/2018 Comp Metabolic Tpg353 AN ION GAP 14 11/09/2018 Comp Metabolic Eoj009 GL UCOSE 122 mg/dL 11/09/2018 Comp Metabolic Qcj273 Cr eat 1.1 mg/dL 11/09/2018 Comp Metabolic Ewv063 eG FR 70 ml/min/1.73m2 11/09 Comp Metabolic Clh525 BUN 21 mg/dL 11/09/2018 Comp Metabolic Vzg764 B/ C Ratio 19.6 Ratio 11/09/2018 Comp Metabolic Orn993 CA LCIUM 10.2 mg/dL 11/09/2018 Comp Metabolic Fhv927 AL K PHOS 45 U/L 11/09/2018 Comp Metabolic Ydg144 T(SGOT) 19 U/L 11/09/2018 Comp Metabolic Cod964 AL T(SGPT) 24 U/L 11/09/2018 Comp Metabolic Apk769 BI LI T 0.5 mg/dL 11/09/2018 Comp Metabolic Gtl174 AL BUMIN 4.4 g/dL 11/09/2018 Comp Metabolic Msx697 TP RO 6.7 g/dL 11/09/2018 Comp Metabolic Gmv257 GL OB 2.3 g/dL 11/09/2018 Comp Metabolic Enx097 A/ G Ratio 1.9 Ratio 11/09/2018 Comp Metabolic Ivl596 Os mo 278 mOsmo 11/09/2018 Cbc With [...] 32.0 pg 11/09/2018 Cbc With Differential Ord2 [place]% 9.8 % 11/09/2018 Cbc With Differential Ord2 [...] 2.13 K/ul 11/09/2018 Cbc With Differential Ord2 [place] ABS# 0.8 K/ul 11/09/2018 Cbc With Differential Ord2 Eos ABS# 0.1 K/ul 11/09/2018 Cbc With Differential Ord2 Baso ABS# 0.0 K/ul 11/09/2018 %Hba1C Hcj522 % HbA1c 80679-1 6.7 % 11/09/2018 %Hba1C Zfu981 Gluc Ave 146 mg/dL 11/09/2018 Tsh Ord6 [...] 31.4 pg 08/03/2018 Cbc With Differential Ord2 [place]% 11.9 % 08/03/2018 Cbc With Differential Ord2 [...] 1.62 K/ul 08/03/2018 Cbc With Differential Ord2 [place] ABS# 0.9 K/ul 08/03/2018 Cbc With Differential Ord2 Eos ABS# 0.1 K/ul 08/03/2018 Cbc With Differential Ord2 Baso ABS# 0.0 K/ul 08/03/2018 Comp Metabolic Rcv606 NA 135 mEq/L 08/03/2018 Comp Metabolic Our825 K 3.5 mEq/L 08/03/2018 Comp Metabolic Kul147 CL 95 mEq/L 08/03/2018 Comp Metabolic Nzi186 CO2 30.0 mEq/L 08/03/2018 Comp Metabolic Qcu880 AN ION GAP 14 08/03/2018 Comp Metabolic Egf436 GL UCOSE 152 mg/dL 08/03/2018 Comp Metabolic Mjr293 Cr eat 1.2 mg/dL 08/03/2018 Comp Metabolic And568 eG FR 61 ml/min/1.73m2 08/03 Comp Metabolic Std610 BUN 23 mg/dL 08/03/2018 Comp Metabolic Kow348 B/ C Ratio 19.0 Ratio 08/03/2018 Comp Metabolic Wqs652 CA LCIUM 9.6 mg/dL 08/03/2018 Comp Metabolic Iqj211 AL K PHOS 51 U/L 08/03/2018 Comp Metabolic Qur928 T(SGOT) 20 U/L 08/03/2018 Comp Metabolic Tys266 AL T(SGPT) 24 U/L 08/03/2018 Comp Metabolic Hjl504 BI LI T 0.5 mg/dL 08/03/2018 Comp Metabolic Foz432 AL BUMIN 4.3 g/dL 08/03/2018 Comp Metabolic Too073 TP RO 6.8 g/dL 08/03/2018 Comp Metabolic Ite838 GL OB 2.6 g/dL 08/03/2018 Comp Metabolic Oct934 A/ G Ratio 1.7 Ratio 08/03/2018 Comp Metabolic Qbw280 Os mo 277 mOsmo 08/03/2018 %Hba1C Euq369 % HbA1c 43798-3 7.3 % 08/03/2018 %Hba1C Vap187 Gluc Ave 163 mg/dL 08/03/2018 Cbc With [...] 31.2 pg 05/14/2018 Cbc With Differential Ord2 [place]% 12.2 % 05/14/2018 Cbc With Differential Ord2 [...] 1.81 K/ul 05/14/2018 Cbc With Differential Ord2 [place] ABS# 1.0 K/ul 05/14/2018 Cbc With Differential Ord2 Eos ABS# 0.1 K/ul 05/14/2018 Cbc With Differential Ord2 Baso ABS# 0.0 K/ul 05/14/2018 Ehrlichia Chaffeensis Antibody Igm [id number] EHRLICHIA CHAFFEENSIS IGM < 1:16 04/09/2018 Ehrlichia Chaffeensis Antibody Igg 117685 EHRLICHIA CHAFFEENSIS IGG 1:64 04/09/2018 [place] Spotted Fever Igg/Igm 17126 3 [place] SPOTTED FEVER IGM EIA . 04/09/2018 [place] Spotted Fever Igg/Igm 73667 3 RMSF, IGM 0.36 index 04/09/2018 [place] Spotted Fever Igg/Igm 35899 3 [facility] SPOTTED FEVER IGG EIA FLEX . 04/09/2018 [place] Spotted Fever Igg/Igm 42054 3 RMSF, IGG SCREEN-FLEX Negative 04/09/2018 [place]ymes Disease Total Antibodies With Western Blot Refle x [id number] B. BURGDORFERI, IGG/IGM 0.31 04/07/2018 [place]ym[place] Disease Total Antibodies With Western Blot Refle x [id number] INTERPRETATION 04/07/2018 %Hba1C Xam200 % HbA1c 41074-1 7.2 % 03/31/2018 %Hba1C Drg837 Gluc Ave 160 mg/dL 03/31/2018 Lipid Ord30 [...] 31.3 pg 12/22/2017 Cbc With Differential Ord2 [place]% 11.5 % 12/22/2017 Cbc With Differential Ord2 [...] 2.16 K/ul 12/22/2017 Cbc With Differential Ord2 [place] ABS# 1.1 K/ul 12/22/2017 Cbc With Differential Ord2 Eos ABS# 0.1 K/ul 12/22/2017 Cbc With Differential Ord2 Baso ABS# 0.0 K/ul 12/22/2017 Comp Metabolic Aqj077 NA 141 mEq/L 12/22/2017 Comp Metabolic Zgy865 K 3.9 mEq/L 12/22/2017 Comp Metabolic Bxo983 CL 99 mEq/L 12/22/2017 Comp Metabolic Ktp628 CO2 32.0 mEq/L 12/22/2017 Comp Metabolic Djh847 AN ION GAP 14 12/22/2017 Comp Metabolic Ncc007 GL UCOSE 152 mg/dL 12/22/2017 Comp Metabolic Oqy507 Cr eat 1.0 mg/dL 12/22/2017 Comp Metabolic Qnd698 eG FR 78 ml/min/1.73m2 12/22 Comp Metabolic Agf944 BUN 27 mg/dL 12/22/2017 Comp Metabolic Qrs462 B/ C Ratio 27.8 Ratio 12/22/2017 Comp Metabolic Mlg192 CA LCIUM 9.7 mg/dL 12/22/2017 Comp Metabolic Ulu337 AL K PHOS 56 U/L 12/22/2017 Comp Metabolic Jlp928 T(SGOT) 18 U/L 12/22/2017 Comp Metabolic Zyo828 AL T(SGPT) 20 U/L 12/22/2017 Comp Metabolic Lmz357 BI LI T 0.4 mg/dL 12/22/2017 Comp Metabolic Ftv268 AL BUMIN 4.2 g/dL 12/22/2017 Comp Metabolic Mre843 TP RO 6.4 g/dL 12/22/2017 Comp Metabolic Cib934 GL OB 2.2 g/dL 12/22/2017 Comp Metabolic Xnv434 A/ G Ratio 1.9 Ratio 12/22/2017 Comp Metabolic Alk565 Os mo 289 mOsmo 12/22/2017 %Hba1C Xpx619 % HbA1c 83851-3 7.1 % 12/22/2017 %Hba1C Cez741 Gluc Ave 157 mg/dL 12/22/2017 Cbc With [...] 31.5 pg 09/22/2017 Cbc With Differential Ord2 [place]% 8.4 % 09/22/2017 Cbc With Differential Ord2 [...] 1.83 K/ul 09/22/2017 Cbc With Differential Ord2 [place] ABS# 0.9 K/ul 09/22/2017 Cbc With Differential Ord2 Eos ABS# 0.0 K/ul 09/22/2017 Cbc With Differential Ord2 Baso ABS# 0.0 K/ul 09/22/2017 %Hba1C Gvc437 % HbA1c 93029-4 6.9 % 09/22/2017 %Hba1C Rof713 Gluc Ave 151 mg/dL 09/22/2017 Tsh Ord6 [...] 31.6 pg 06/17/2017 Cbc With Differential Ord2 [place]% 11.1 % 06/17/2017 Cbc With Differential Ord2 [...] 2.35 K/ul 06/17/2017 Cbc With Differential Ord2 [place] ABS# 1.2 K/ul 06/17/2017 Cbc With Differential Ord2 Eos ABS# 0.1 K/ul 06/17/2017 Cbc With Differential Ord2 Baso ABS# 0.0 K/ul 06/17/2017 %Hba1C Dyh930 % HbA1c 03266-3 7.3 % 06/17/2017 %Hba1C Quv673 Gluc Ave 163 mg/dL 06/17/2017 Comp Metabolic Cxx746 NA 137 mEq/L 06/17/2017 Comp Metabolic Bjf718 K 3.8 mEq/L 06/17/2017 Comp Metabolic Dll616 CL 98 mEq/L 06/17/2017 Comp Metabolic Mlt850 CO2 30.0 mEq/L 06/17/2017 Comp Metabolic Fhz094 AN ION GAP 13 06/17/2017 Comp Metabolic Gjc531 GL UCOSE 157 mg/dL 06/17/2017 Comp Metabolic Wuy353 Cr eat 1.0 mg/dL 06/17/2017 Comp Metabolic Zud799 eG FR 76 ml/min/1.73m2 06/17 Comp Metabolic Hkt529 BUN 18 mg/dL 06/17/2017 Comp Metabolic Qqx269 B/ C Ratio 18.0 Ratio 06/17/2017 Comp Metabolic Obg356 CA LCIUM 9.8 mg/dL 06/17/2017 Comp Metabolic Ljx139 AL K PHOS 57 U/L 06/17/2017 Comp Metabolic Moh851 T(SGOT) 19 U/L 06/17/2017 Comp Metabolic Ggg262 AL T(SGPT) 23 U/L 06/17/2017 Comp Metabolic Vfa406 BI LI T 0.6 mg/dL 06/17/2017 Comp Metabolic Rxn200 AL BUMIN 4.4 g/dL 06/17/2017 Comp Metabolic Jap091 TP RO 6.8 g/dL 06/17/2017 Comp Metabolic Tgh445 GL OB 2.4 g/dL 06/17/2017 Comp Metabolic Xcl739 A/ G Ratio 1.9 Ratio 06/17/2017 Comp Metabolic Tjo842 Os mo 279 mOsmo 06/17/2017 Review of [...] skin Location: scalp 10/08/2017 [place] - right quaker, mid fo rehead/scalp, left posterior neck - [...] skin Location: scalp 08/27/2017 [place] - right quaker, mid fo rehead/scalp - cryotherapy to area, [...] CPT-4: J3301 10/15/2018 THER/PROPH/DIAG INJ SC/IM CPT-4: 97358 10/15/2018 ADMIN INFLUENZA VIRU S VAC CPT-4: G0008 06/24/2018 FLU VACC PRSV FREE I NC ANTIG CPT-4: 95846 06/24/2018 GLUC MONITOR CONT PH YS I&R CPT-4: 09441 01/27/2018 PPPS, SUBSEQ VISIT CPT- 4: G0439 01/21/2018 GLUCOSE MONITORING CONT CPT-4: 80624 01/06/2018 ADMIN INFLUENZA VIRU S VAC CPT-4: G0008 06/09/2017 FLU VACC PRSV FREE I NC ANTIG CPT-4: 45244 06/09/2017 Vital Signs Date Vital 02/19/2019 Blood Pressure 1: 136/78 Code: 8480-6 Heart Rate 1: 70 bpm Height: SpO2: 98% Weight: 01/25/2019 Blood Pressure 1: 140/74 Code: 8480-6 BMI: 32.8 Code: 86434-5 Heart Rate 1: 60 bpm Height: 5'8" SpO2: 96% Weight: 216 lbs 11/16/2018 Blood Pressure 1: 154/90 Code: 8480-6 BMI: 33.1 Code: 64384-9 Heart Rate 1: 84 bpm Height: 5'8" SpO2: 96% Weight: 218 lbs 10/15/2018 Blood Pressure 1: 140/70 Code: 8480-6 BMI: 33.5 Code: 26463-7 Heart Rate 1: 72 bpm Height: 5'8" SpO2: 98% Weight: 220 lbs 08/05/2018 Blood Pressure 1: 132/56 Code: 8480-6 BMI: 34.5 Code: 52095-0 Heart Rate 1: 65 bpm Height: 5'8" SpO2: 95% Weight: 227 lbs 06/22/2018 Blood Pressure 1: 144/86 Code: 8480-6 BMI: 36.0 Code: 79909-5 Heart Rate 1: 74 bpm Height: 5'8" SpO2: 98% Weight: 237 lbs 05/14/2018 Blood Pressure 1: 132/72 Code: 8480-6 Height: Weight: 04/27/2018 Blood Pressure 1: 148/78 Code: 8480-6 BMI: 35.6 Code: 42943-7 Heart Rate 1: 77 bpm Height: 5'8" SpO2: 97% Weight: 234 lbs 04/03/2018 Blood Pressure 1: 156/80 Code: 8480-6 BMI: 35.4 Code: 64863-6 Heart Rate 1: 70 bpm Height: 5'8" SpO2: 97% Weight: 233 lbs 01/27/2018 BMI: 35.6 Code: 32488-1 Heart Rate 1: 86 bpm Height: 5'8" SpO2: 98% Weight: 234 lbs 01/21/2018 Heigh t: Weight: 01/06/2018 Heigh t: Weight: 12/31/2017 Blood Pressure 1: 140/86 Code: 8480-6 BMI: 34.2 Code: 70563-7 Heart Rate 1: 80 bpm Height: 5'8" SpO2: 98% Weight: 225 lbs 10/08/2017 Blood Pressure 1: 152/74 Code: 8480-6 BMI: 34.2 Code: 28004-6 Heart Rate 1: 67 bpm Height: 5'8" SpO2: 98% Weight: 225 lbs 08/27/2017 Blood Pressure 1: 144/82 Code: 8480-6 BMI: 34.2 Code: 75138-8 Heart Rate 1: 70 bpm Height: 5'8" SpO2: 98% Weight: 225 lbs 06/10/2017 Blood Pressure 1: 150/84 Code: 8480-6 BMI: 35.0 Code: 11030-4 Heart Rate 1: 67 bpm Height: 5'8" SpO2: 98% Weight: 230 lbs 05/20/2017 Blood Pressure 1: 146/76 Code: 8480-6 BMI: 35.3 Code: 12964-8 Heart Rate 1: 70 bpm Height: 5'8" [...] Encounters Encounter Performer Loca tion Codes Date 67437 EST. PATIENT, LEVEL III Diagnosis: Cellulitis of right lower limb[ICD10: L03.115] Diagnosis: Bitten or stung by nonvenomous insect and other nonvenomous arthropods, subsequent encounter[ICD10: W57.XXXD] [facility] CPT-4: 02044 02/19/2019 21543 EST. PATIENT, LEVEL III Diagnosis: Cellulitis of right lower limb[ICD10: L03.115] Diagnosis: Bitten or stung by nonvenomous insect and other nonvenomous arthropods, initial encounter[ICD10: W57.XXXA] Laney Guerrero MD, [facility] CPT-4: 87920 01/25/2019 82932 EST. PATIENT, LEVEL III Diagnosis: Type 2 diabetes mellitus with hyperglycemia[ICD10: E11.65] Diagnosis: Essential (primary) hypertension[ICD10: I10] Laney Guerrero MD, [facility] CPT-4: 70791 11/16/2018 [id number] EST. PATIENT, LEVEL IV Diagnosis: Other acute sinusitis[ICD10: J01.80] Diagnosis: Other allergic rhinitis[ICD10: J30.89] Laney Guerrero MD, [facility] CPT-4: 38268 10/15/2018 72936 EST. PATIENT, LEVEL III Diagnosis: Type 2 diabetes mellitus with hyperglycemia[ICD10: E11.65] Laney Guerrero MD, [facility] CPT-4: 84451 08/05/2018 85625 EST. PATIENT, LEVEL III Diagnosis: Type 2 diabetes mellitus with hyperglycemia[ICD10: E11.65] Laney Guerrero MD, [facility] CPT-4: 53316 06/22/2018 23286 EST. PATIENT, LEVEL IV Diagnosis: Diplopia[ICD10: H53.2] Diagnosis: Other specified anemias[ICD10: D64.89] Laney Guerrero MD, [facility] CPT-4: 50642 05/14/2018 73929 EST. PATIENT, LEVEL III Diagnosis: Benign paroxysmal vertigo, bilateral[ICD10: H81.13] Diagnosis: Other allergic rhinitis[ICD10: J30.89] Laney Guerrero MD, [facility] CPT-4: 81612 04/27/2018 78442 EST. PATIENT, LEVEL III Diagnosis: Type 2 diabetes mellitus with hyperglycemia[ICD10: E11.65] Diagnosis: Other fatigue[ICD10: R53.83] Diagnosis: Other malaise[ICD10: R53.81] Diagnosis: Bitten or stung by nonvenomous insect and other nonvenomous arthropods, initial encounter[ICD10: W57.XXXA] Diagnosis: Cellulitis of right upper limb[ICD10: L03.113] Diagnosis: Mixed hyperlipidemia[ICD10: E78.2] Laney Guerrero MD, [facility] CPT-4: 71891 04/03/2018 ([id number]) 18318 EST. P ATIENT, LEVEL III Diagnosis: Type 2 diabetes mellitus with hyperglycemia[ICD10: E11.65] Laney Guerrero MD, [facility] CPT-4: 85064 01/27/2018 ([id number]) Miscellaneou s no charge Diagnosis: Type 2 diabetes mellitus with hyperglycemia[ICD10: E11.65] Laney Guerrero MD, [facility] CPT-4: 28369 01/13/2018 26143 EST. PATIENT, LEVEL III Diagnosis: Type 2 diabetes mellitus with hyperglycemia[ICD10: E11.65] Diagnosis: Essential (primary) hypertension[ICD10: I10] Diagnosis: Mixed hyperlipidemia[ICD10: E78.2] Laney Guerrero MD, [facility] CPT-4: 63181 12/31/2017 72113 EST. PATIENT, LEVEL III Diagnosis: Type 2 diabetes mellitus with hyperglycemia[ICD10: E11.65] Diagnosis: Essential (primary) hypertension[ICD10: I10] Diagnosis: Mixed hyperlipidemia[ICD10: E78.2] Diagnosis: Actinic keratosis[ICD10: L57.0] Laney Guerrero MD, [facility] CPT-4: 09618 10/08/2017 16439 EST. PATIENT, LEVEL III Diagnosis: Type 2 diabetes mellitus with hyperglycemia[ICD10: E11.65] Diagnosis: Essential (primary) hypertension[ICD10: I10] Diagnosis: Mixed hyperlipidemia[ICD10: E78.2] Diagnosis: Actinic keratosis[ICD10: L57.0] Laney Guerrero MD, [facility] CPT-4: 01605 08/27/2017 86912 EST. PATIENT, LEVEL III Diagnosis: Type 2 diabetes mellitus with hyperglycemia[ICD10: E11.65] Diagnosis: Essential (primary) hypertension[ICD10: I10] Diagnosis: Mixed hyperlipidemia[ICD10: E78.2] Laney Guerrero MD, [facility] CPT-4: 62105 06/25/2017 ([id number]) 04749 EST. 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 02/19/2019 Appointment: Laney Luther WPtel: [address] [place], [place] [address] (15 min) Moderate 02/19/2019 Patient Education: Patient [...] warmth, discharge. 01/25/2019 [facility] [phone] [facility] ([facility] Moderate 01/25/2019 Patient Education: Patient [...] control. 11/16/2018 Appointment: Karo Guerrero WPtel: [phone] [facility] (15 min) Moderate 11/16/2018 Appointment: Laney Luther WPtel: [phone] [facility] (30 min) Complex 11/16/2018 Patient Education: Patient Medication Summary Completed 11/16/2018 Patient Education: Diabetes Completed 11/16/2018 Appointment: Laney Luther WPtel: [phone] [facility] (15 min) Moderate 11/02/2018 Patient Education: Patient [...] spray. 10/15/2018 Appointment: Laney Luther WPtel: [phone] [facility] (30 min) Complex 10/15/2018 Patient Education: [...] control. 08/05/2018 Appointment: Laney Luther WPtel: [phone] [facility] (15 min) Moderate 08/05/2018 Patient Education: Patient Medication Summary Completed 08/05/2018 Appointment: Laney Luther WPtel: [phone] [facility] (15 min) Moderate 07/17/2018 Referral: Kevin [...] glucose control. 06/22/2018 Appointment: Laney Luther WPtel: [phone] [facility] (15 min) Moderate 06/22/2018 Patient Education: Patient Medication Summary Completed 06/22/2018 Patient Education: Diabetes Completed 06/22/2018 Care Plan: Referral Order SNOMED-CT : [id number] Pending 06/22/2018 [id number] Ref[facility] Initiated 06/02/2018 Appointment: Nurse Visit 05/18/2018 [...] or concerns. 05/14/2018 Appointment: Lane[facility] Luther [facility]Ptel[facility] (15 min) Moderate 05/14/2018 Patient Education: Patient [...] 04/27/2018 Care Plan: Referral Order SNOMED-CT : [id number] Pending 04/27/2018 Visit Plan: Diabetes Mellitus - [...] months for follow up on the patient's chemist inorganic gumaro medical problem and to assure normal liver response to medications. 04/03/2018 Appointment: Laney Luthertel: [phone] [facility] (15 min) Moderate 04/03/2018 Patient Education: Patient Medication Summary Completed 04/03/2018 Appointment: Laney Luthertel: [phone] [facility] (30 min) Complex 03/31/2018 Patient Education: Patient [...] greater blood glucose control. 01/27/2018 [phone] ([facility]) Complex 01/27/2018 Patient Education: Patient Medication Summary Completed 01/27/2018 Visit Plan: Medicare Exam - today w artur discussed the patients past history, immunizations, preventative [...] Summary Completed 01/21/2018 Appointment: Laney Luther WPtel: [facility] (15 min) Moderate 01/13/2018 Patient Education: [...] control. 01/06/2018 Appointment: Laney Luther [facility]Ptel[phone] (15 min) Moderate 01/06/2018 Patient Education: Patient [...] to medications. 12/31/2017 Appointment: Lane[facility] Luther [facility]Ptel[phone] (30 min) Complex 12/31/2017 Patient Education: Patient Medication Summary Completed [...] concerns. 10/08/2017 Appointment: Laney Luther WPtel: [phone] [facility] (30 min) Complex 10/08/2017 Patient Education: Patient Medication Summary Completed 10/08/2017 Appointment: Laney Luther [facility]Ptel[phone] (15 min) Moderate 10/07/2017 Visit Plan: Diabetes [...] concerns. 08/27/2017 Appointment: Laney Luther [facility]Ptel[phone] (30 min) Complex 08/27/2017 Patient Education: Patient [...] medications. 06/25/2017 Appointment: Laney Luther [facility]Ptel: [phone] [place] (30 min) Complex 06/25/2017 Patient Education: Patient Medication Summary Completed 06/25/2017 Appointment: Debra Ramirez [facility]Ptel[id number] [place] (30 min) Complex 06/24/2017 Visit [...] to medications. 06/10/2017 Appointment: Debra Ramirez WPtel: [id number] (30 min) Complex 06/10/2017 Patient Education: Patient [...] glucose control. 05/20/2017 Appointment: Laney Luther WPtel: [facility] New Patient 05/20/2017 Patient Education: Patient Medication Summary Completed 05/20/2017 [id number] Ref[facility] Initiated Referral: Kevin Cuevas Referral Initiated Instructions Comment . tick bite - The pa tient was instructed in appropriate wound care. The patient was instructed to use the antibiotic ointment as per RX. The patient is to call for any change in symptoms, increase in size of the lesion, increase in pain, worsening redness, warmth, discharge. . Previous tick bite with ehrlichiosis positive - The patient was instructed in appropriate wound care. The patient was instructed to use the antibiotic ointment as per RX. The patient is to call for any change in symptoms, increase in size of the lesion, increase in pain, worsening redness, warmth, discharge. Will refer you to Dr Frederick Cuevas [...] greater blood glucose control. . Hypertension - Th e patient has [...] blood glucose control. GET RECENT LABS FROM [facility] FASTING LABS NEXT WEEK UNLESS WE [...] liver response to medications. . Hypertension - The patient has been [...] allow for greater blood glucose control. . Sinusitis - Pt has acute infection [...] spray in the nasal steroid allergy spray. start zyrtec daily - let your eye [...] call the office for further instructions/medication interventions. No changes - follow a diabetic diet [...] assure normal liver response to medications. . Double vision - st arted after giving blood on 05/03/18, improved with increased fluid intake - will check CBC - Will discuss with Dr. Guerrero. pt is to keep his appointment with Dr. Johnson. Pt is to notify clinic if symptoms do not improve, if they worsen, or with any changes, questions, or concerns. . Diabetes Mellitus - I have [...] drainage, or any other acute concerns. . Continuous glucose monitor placed - pt [...] to allow for greater blood glucose control. Stop atorvastatin - will check your cholesterol [...] to assure normal liver response to medications. Check fasting lipid with next set of [...] assure normal liver response to medications. . Medicare Exam - to day we [...] her DOPA paperwork for health care surrogate. . Diabetes Mellitus - The patient has [...]
[2020-02-09] MEDS ORDERED: LIDOCAINE 1% INJ 20 ML 20 ML VIAL ONE (07:01)
[2020-02-09] MEDS ORDERED: HEParin (CATH LAB) 2,000 ML IV ONE (07:02)
[2020-02-09] MEDS ORDERED: NS IV 1000 ML 1,000 ML ONE (07:02)
--- OUTSIDE RECORDS SUMMARY | 2020-02-09 07:02 | XMS REPORT | CCD ---
Author Author Gunnar Luther Organization Karo Guerrero MD, [facility] Address [address] [place] [address] Phone Care Team Providers Care Entry Level Chemist Name Role Phone PP Unavailable CCM Unavailable Summary Purpose Interface Exchange Insurance Providers Payer name Policy type / Coverage type Covered libertarian ID Effective Begin Date Effective End Date WPS Medicare Part B Medicare Part B [id number] Unknown Aetna Medicare Part B [id number] Unknown Cigna Medicare Part B 80 [id number] Unknown Family history Sister Diagnosis Age At [...] ed reddy 05/20/[address]: 840338665 Never smoker 05/20/[address]: 860406425 Never drinks alcohol 05/20/2017 Allergies, Adverse Reactions, [...] Instruc tions Start Date Stop Date Sta tus Fill Instructions doxycycline hyclate 100 mg capsule RxNorm: 3552152 1 Capsule(s) PO BID 02/04/2019 02/07/2019 Ac tive extending out to 14 days doxycycline hyclate 100 mg capsule RxNorm: 4691226 1 Capsule(s) PO BID 01/25/2019 02/03/2019 In active glimepiride 2 mg tablet RxNorm: 513239 TAKE 1 TABLET BY MOUTH TWICE DAILY FOR D IABETES 01/07/2019 01/01/2020 Active diltiazem CD 360 mg capsule,extended release 24 hr RxNorm: 450214 1 CAPSULE(S) PO QHS 12/29/2018 12/23/2019 Ac tive atenolol 50 mg-chlor thalidone 25 mg tablet RxNorm: 454150 1 TABLET(S) PO DAILY 12/17/2018 12/11/2019 Ac tive PLEASE SEND REFILL REQUESTS ELECTRONICAL LY metformin ER 750 mg tablet,extended release 24 hr RxNorm: 752898 2 TABLET(S) PO DAILY 12/17/2018 06/14/2019 Ac tive metformin ER 750 mg tablet,extended release 24 hr RxNorm: 401199 2 TABLET(S) PO DAILY 11/13/2018 12/16/2018 Inactive Tradjenta 5 mg tablet RxNorm: 3606276 TAKE 1 TABLET BY MOUTH DAILY 10/16/2018 03/14/2019 Ac tive Kenalog 40 mg/mL benitez pension for injection RxNorm: 9427326 1 Milliliter(s) Inj 10/15/2018 10/15/2018 In active Tradjenta 5 mg tablet RxNorm: 0536350 TAKE 1 TABLET BY MOUTH DAILY 09/18/2018 02/14/2019 Ac tive metformin ER 750 mg tablet,extended release 24 hr RxNorm: 940030 2 TABLET(S) PO DAILY 07/13/2018 11/09/2018 Inactive Tradjenta 5 mg tablet RxNorm: 4064843 TAKE 1 TABLET BY MOUTH DAILY 07/02/2018 09/17/2018 In active One Touch Test strips RxNorm: 1 Miscellaneous BID 06/29/2018 07/28/2018 Inactive Zyrtec 10 mg tablet RxNorm: 0063229 1 Tablet(s) PO daily 04/27/2018 05/26/2018 Inactive doxycycline hyclate 100 mg capsule RxNorm: 5703784 1 Capsule(s) PO BID 04/03/2018 04/12/2018 In active meclizine 25 mg tablet RxNorm: 207383 1 Tablet(s) PO TID as needed Dizziness 04/03/2018 04/07/2018 In active metformin ER 750 mg tablet,extended release 24 hr RxNorm: 454040 2 TABLET(S) PO DAILY 02/03/2018 06/02/2018 Inactive glimepiride 2 mg tablet RxNorm: 505561 TAKE 1 TABLET BY MOUTH TWICE DAILY FOR D IABETES 01/13/2018 04/07/2019 Active glimepiride 2 mg tablet RxNorm: 132602 TAKE 1 TABLET BY MOUTH TWICE DAILY FOR D IABETES 01/11/2018 01/05/2019 Inactive diltiazem CD 360 mg capsule,extended release 24 hr RxNorm: 681552 1 CAPSULE(S) PO QHS 01/02/2018 12/27/2018 Inactive atenolol 50 mg-chlor thalidone 25 mg tablet RxNorm: 178063 1 Tablet(s) PO daily 12/18/2017 12/12/2018 In active PLEASE SEND REFILL REQUESTS ELECTRONICAL LY Tradjenta 5 mg tablet RxNorm: 3439778 TAKE 1 TABLET BY MOUTH DAILY 12/15/2017 05/13/2018 In active metformin ER 750 mg tablet,extended release 24 hr RxNorm: 166085 2 TABLET(S) PO DAILY 11/05/2017 12/16/2018 Inactive metformin ER 750 mg tablet,extended release 24 hr RxNorm: 388393 2 TABLET(S) PO DAILY 11/03/2017 02/02/2018 Inactive atorvastatin 20 mg t ablet RxNorm: 965735 TAKE 1 TABLET BY MOUT H EVERY NIGHT AT BEDTIME FOR CHOLESTEROL 08/28/2017 08/22/2018 Inactive Zithromax Z-Maury 250 mg tablet RxNorm: 349815 1 Tablet(s) PO UD 08/15/2017 04/13/2018 Inactive Tamiflu 75 mg capsule RxNorm: 300643 1 Capsule(s) PO BID 08/15/2017 08/14/2017 Inactive Tamiflu 75 mg capsule RxNorm: 548680 1 Capsule(s) PO BID 08/15/2017 08/19/2017 Inactive Tradjenta 5 mg tablet RxNorm: 8596240 TAKE 1 TABLET BY MOUTH DAILY 08/12/2017 12/09/2017 In active metformin ER 750 mg tablet,extended release 24 hr RxNorm: 537822 TAKE 2 TABLET BY MOUT H ONCE A DAY DIRECTED 08/08/2017 12/16/2018 Inactive SAVINGS FOR NON-COVERED MED ICATIONS Claims: BIN: [id number], PCN: [id number], GROUP: [id number], Patient ID: [id number] Phone; Questions: [facility] [phone] metformin ER 750 mg tablet,extended release 24 hr RxNorm: 048300 2 Tablet(s) PO daily 08/07/2017 08/06/2017 Inactive metformin ER 750 mg tablet,extended release 24 hr RxNorm: 765602 2 Tablet(s) PO daily 08/07/2017 11/02/2017 Inactive glimepiride 2 mg tablet RxNorm: 882872 TAKE 1 TABLET BY MOUTH TWICE DAILY FOR D IABETES 07/18/2017 01/10/2018 Inactive diltiazem CD 360 mg capsule,extended release 24 hr RxNorm: 154120 1 Capsule(s) PO QHS 07/03/2017 12/29/2017 Inactive One Touch Test strips RxNorm: 1 Miscellaneous daily 05/30/2017 06/28/2017 Inactive One Touch Test strips RxNorm: 1 Miscellaneous daily 05/30/2017 05/29/2017 Inactive iron gluconate-B cmp lx-potassium iodide-minerals oral RxNorm: 42842 oral No Start Date Active Super B Complex 100 tablet RxNorm: 1 Tablet(s) PO daily No Start Date Active Glucosamine Chondroi tin Maximum Strength oral RxNorm: 4845 oral No Start Date Active garlic 1,000 mg capsule RxNorm: 676681 1 Capsule(s) PO BID No Start Date Active vitamin E (dl, aceta te) 400 unit capsule RxNorm: 783547 1 Capsule(s) PO daily No Start Date Active beta carotene 25,000 unit tablet RxNorm: 154248 1 Tablet(s) PO daily No Start Date Active rutin 500 mg tablet RxNorm: 685225 1/2 Tablet(s) PO daily No Start Date Active Calcium 600 + Minera ls oral RxNorm: 662135 oral No S tart Date Active Vitamin D3 1,000 uni t tablet RxNorm: 490079 1 Tablet(s) PO daily No Start Date Active Vitamin C 500 mg tablet RxNorm: 591247 1 Tablet(s) PO daily No Start Date Active acidophilus 25 susanne on cell-pectin, citrus 100 mg tablet RxNorm: 696028 1 Tablet(s) PO BID No Start Date Active Zinc and C oral RxNorm: oral No Start Date Active aspirin 81 mg chewab le tablet RxNorm: 006800 1 Tablet(s) PO QPM No Start Date Active Zegerid OTC 20 mg-1. 1 gram capsule RxNorm: 783688 1 Capsule(s) PO daily No Start Date Active magnesium 250 mg tablet RxNorm: 1 Tablet(s) PO daily No Start Date Active flaxseed oil 1,000 m g capsule RxNorm: 668446 1 Capsule(s) PO BID No Start Date Active milk thistle 175 mg tablet RxNorm: 916554 1 Tablet(s) PO daily No Start Date Active metformin ER 750 mg tablet,extended release 24 hr RxNorm: 506280 2 Tablet(s) PO daily No Start Date 08/06/2017 Inactive atorvastatin 20 mg t ablet RxNorm: 307426 1 Tablet(s) PO daily No Start Date 08/27/2017 Inactive Tradjenta 5 mg tablet RxNorm: 1382486 1 Tablet(s) PO daily No Start Date 08/11/2017 Inactive diltiazem ER 300 mg tablet,extended release 24 hr RxNorm: 620420 1 Tablet(s) PO daily No Start Date 05/18/2017 Inactive glimepiride 2 mg tablet RxNorm: 593502 1 Tablet(s) PO BID No Start Date 07/17/2017 Inactive Zithromax Z-Maury 250 mg tablet RxNorm: 247800 1 Tablet(s) PO UD No Start Date 08/14/2017 Inactive atenolol 50 mg-chlor thalidone 25 mg tablet RxNorm: 069165 1 Tablet(s) PO daily No Start Date 12/17/2017 Inactive diltiazem CD 360 mg capsule,extended release 24 hr RxNorm: 200778 1 Capsule(s) PO QHS No Start Date 07/02/2017 Inactive Medication Administered Medication Codes Instruc tions Start Date Status Kenalog 40 mg/mL suspension for injection RxNorm: 2448407 1Milliliter 10/15/2018 N o longer Active Immunizations Vaccine Codes Date Status Influenza CVX: 141 06/24 completed Influenza CVX: 141 06/09 completed Assessments Condition Codes Effectiv e Dates Cellulitis of right lower limb ICD-1 0: L03.115 ICD-9: 682.6 01/25/2019 Bitten or stung by nonvenomous insect an [...] For Visit Effective Dates Notes arthropod bite 01/25/2019 diabetes mellitus 11/16/2018 sinus [...] Item Item Code Result Date Comp Metabolic Gub270 NA 137 mEq/L 11/09/2018 Comp Metabolic Iro217 K 4.4 mEq/L 11/09/2018 Comp Metabolic Iio416 CL 97 mEq/L 11/09/2018 Comp Metabolic Vkf955 CO2 30.0 mEq/L 11/09/2018 Comp Metabolic Vkz224 AN ION GAP 14 11/09/2018 Comp Metabolic Uoy146 GL UCOSE 122 mg/dL 11/09/2018 Comp Metabolic Axk265 Cr eat 1.1 mg/dL 11/09/2018 Comp Metabolic Vnm960 eG FR 70 ml/min/1.73m2 11/09 Comp Metabolic Kja632 BUN 21 mg/dL 11/09/2018 Comp Metabolic Gbj133 B/ C Ratio 19.6 Ratio 11/09/2018 Comp Metabolic Wfm129 CA LCIUM 10.2 mg/dL 11/09/2018 Comp Metabolic Pye302 AL K PHOS 45 U/L 11/09/2018 Comp Metabolic Vdw488 T(SGOT) 19 U/L 11/09/2018 Comp Metabolic Ssz632 AL T(SGPT) 24 U/L 11/09/2018 Comp Metabolic Sex685 BI LI T 0.5 mg/dL 11/09/2018 Comp Metabolic Lmm992 AL BUMIN 4.4 g/dL 11/09/2018 Comp Metabolic Tpa307 TP RO 6.7 g/dL 11/09/2018 Comp Metabolic Lag320 GL OB 2.3 g/dL 11/09/2018 Comp Metabolic Btm684 A/ G Ratio 1.9 Ratio 11/09/2018 Comp Metabolic Rmu529 Os mo 278 mOsmo 11/09/2018 Cbc With [...] 32.0 pg 11/09/2018 Cbc With Differential Ord2 Kemper% 9.8 % 11/09/2018 Cbc With Differential Ord2 [...] 2.13 K/ul 11/09/2018 Cbc With Differential Ord2 Kemper ABS# 0.8 K/ul 11/09/2018 Cbc With Differential Ord2 Eos ABS# 0.1 K/ul 11/09/2018 Cbc With Differential Ord2 Baso ABS# 0.0 K/ul 11/09/2018 %Hba1C Hgg831 % HbA1c 64022-7 6.7 % 11/09/2018 %Hba1C Avi440 Gluc Ave 146 mg/dL 11/09/2018 Tsh Ord6 [...] 31.4 pg 08/03/2018 Cbc With Differential Ord2 Kemper% 11.9 % 08/03/2018 Cbc With Differential Ord2 [...] 1.62 K/ul 08/03/2018 Cbc With Differential Ord2 Kemper ABS# 0.9 K/ul 08/03/2018 Cbc With Differential Ord2 Eos ABS# 0.1 K/ul 08/03/2018 Cbc With Differential Ord2 Baso ABS# 0.0 K/ul 08/03/2018 Comp Metabolic Jjc860 NA 135 mEq/L 08/03/2018 Comp Metabolic Aqs857 K 3.5 mEq/L 08/03/2018 Comp Metabolic Xmp815 CL 95 mEq/L 08/03/2018 Comp Metabolic Tub874 CO2 30.0 mEq/L 08/03/2018 Comp Metabolic Tdg139 AN ION GAP 14 08/03/2018 Comp Metabolic Ysu493 GL UCOSE 152 mg/dL 08/03/2018 Comp Metabolic Qti377 Cr eat 1.2 mg/dL 08/03/2018 Comp Metabolic Shm465 eG FR 61 ml/min/1.73m2 08/03 Comp Metabolic Ghd962 BUN 23 mg/dL 08/03/2018 Comp Metabolic Ekz340 B/ C Ratio 19.0 Ratio 08/03/2018 Comp Metabolic Ocy908 CA LCIUM 9.6 mg/dL 08/03/2018 Comp Metabolic Ipm352 AL K PHOS 51 U/L 08/03/2018 Comp Metabolic Grq769 T(SGOT) 20 U/L 08/03/2018 Comp Metabolic Ozr795 AL T(SGPT) 24 U/L 08/03/2018 Comp Metabolic Ptu663 BI LI T 0.5 mg/dL 08/03/2018 Comp Metabolic Mfc981 AL BUMIN 4.3 g/dL 08/03/2018 Comp Metabolic Vfp962 TP RO 6.8 g/dL 08/03/2018 Comp Metabolic Hfi520 GL OB 2.6 g/dL 08/03/2018 Comp Metabolic Tli089 A/ G Ratio 1.7 Ratio 08/03/2018 Comp Metabolic Ahv138 Os mo 277 mOsmo 08/03/2018 %Hba1C Vfw514 % HbA1c 68611-3 7.3 % 08/03/2018 %Hba1C Nfo910 Gluc Ave 163 mg/dL 08/03/2018 Cbc With [...] 31.2 pg 05/14/2018 Cbc With Differential Ord2 Kemper% 12.2 % 05/14/2018 Cbc With Differential Ord2 [...] 1.81 K/ul 05/14/2018 Cbc With Differential Ord2 Kemper ABS# 1.0 K/ul 05/14/2018 Cbc With Differential Ord2 Eos ABS# 0.1 K/ul 05/14/2018 Cbc With Differential Ord2 Baso ABS# 0.0 K/ul 05/14/2018 Ehrlichia Chaffeensis Antibody Igm [id number] EHRLICHIA CHAFFEENSIS IGM < 1:16 04/09/2018 Ehrlichia Chaffeensis Antibody Igg 187504 EHRLICHIA CHAFFEENSIS IGG 1:64 04/09/2018 [place] Spotted Fever Igg/Igm 12589 3 LOTUS MT SPOTTED FEVER IGM EIA . 04/09/2018 [place] Spotted Fever Igg/Igm 45900 3 RMSF, IGM 0.36 index 04/09/2018 [place] Spotted Fever Igg/Igm 55688 3 LOTUS MT SPOTTED FEVER IGG EIA FLEX . 04/09/2018 [place] Spotted Fever Igg/Igm 14830 3 RMSF, IGG SCREEN-FLEX Negative 04/09/2018 Lymes Disease Total Antibodies With Western Blot Refle x [id number] B. BURGDORFERI, IGG/IGM 0.31 04/07/2018 Lymes Disease Total Antibodies With Western Blot Refle x [id number] INTERPRETATION 04/07/2018 %Hba1C Hud765 % HbA1c 14391-1 7.2 % 03/31/2018 %Hba1C Zba182 Gluc Ave 160 mg/dL 03/31/2018 Lipid Ord30 [...] 31.3 pg 12/22/2017 Cbc With Differential Ord2 Kemper% 11.5 % 12/22/2017 Cbc With Differential Ord2 [...] 2.16 K/ul 12/22/2017 Cbc With Differential Ord2 Kemper ABS# 1.1 K/ul 12/22/2017 Cbc With Differential Ord2 Eos ABS# 0.1 K/ul 12/22/2017 Cbc With Differential Ord2 Baso ABS# 0.0 K/ul 12/22/2017 Comp Metabolic Jgr136 NA 141 mEq/L 12/22/2017 Comp Metabolic Fqv026 K 3.9 mEq/L 12/22/2017 Comp Metabolic Kyn427 CL 99 mEq/L 12/22/2017 Comp Metabolic Utz885 CO2 32.0 mEq/L 12/22/2017 Comp Metabolic Pqb363 AN ION GAP 14 12/22/2017 Comp Metabolic Qzg016 GL UCOSE 152 mg/dL 12/22/2017 Comp Metabolic Zot201 Cr eat 1.0 mg/dL 12/22/2017 Comp Metabolic Bak668 eG FR 78 ml/min/1.73m2 12/22 Comp Metabolic Xdz129 BUN 27 mg/dL 12/22/2017 Comp Metabolic Baz409 B/ C Ratio 27.8 Ratio 12/22/2017 Comp Metabolic Wbp136 CA LCIUM 9.7 mg/dL 12/22/2017 Comp Metabolic Aml271 AL K PHOS 56 U/L 12/22/2017 Comp Metabolic Enp711 T(SGOT) 18 U/L 12/22/2017 Comp Metabolic Mvq762 AL T(SGPT) 20 U/L 12/22/2017 Comp Metabolic Eqp349 BI LI T 0.4 mg/dL 12/22/2017 Comp Metabolic Hpg819 AL BUMIN 4.2 g/dL 12/22/2017 Comp Metabolic Wkx828 TP RO 6.4 g/dL 12/22/2017 Comp Metabolic Eeh501 GL OB 2.2 g/dL 12/22/2017 Comp Metabolic Jtv695 A/ G Ratio 1.9 Ratio 12/22/2017 Comp Metabolic Wcd802 Os mo 289 mOsmo 12/22/2017 %Hba1C Zov732 % HbA1c 73261-0 7.1 % 12/22/2017 %Hba1C Kgj964 Gluc Ave 157 mg/dL 12/22/2017 Cbc With [...] 31.5 pg 09/22/2017 Cbc With Differential Ord2 Kemper% 8.4 % 09/22/2017 Cbc With Differential Ord2 [...] 1.83 K/ul 09/22/2017 Cbc With Differential Ord2 Kemper ABS# 0.9 K/ul 09/22/2017 Cbc With Differential Ord2 Eos ABS# 0.0 K/ul 09/22/2017 Cbc With Differential Ord2 Baso ABS# 0.0 K/ul 09/22/2017 %Hba1C Jsq546 % HbA1c 72494-1 6.9 % 09/22/2017 %Hba1C Qyq886 Gluc Ave 151 mg/dL 09/22/2017 Tsh Ord6 [...] 31.6 pg 06/17/2017 Cbc With Differential Ord2 Kemper% 11.1 % 06/17/2017 Cbc With Differential Ord2 [...] 2.35 K/ul 06/17/2017 Cbc With Differential Ord2 Kemper ABS# 1.2 K/ul 06/17/2017 Cbc With Differential Ord2 Eos ABS# 0.1 K/ul 06/17/2017 Cbc With Differential Ord2 Baso ABS# 0.0 K/ul 06/17/2017 %Hba1C Bdb614 % HbA1c 18601-7 7.3 % 06/17/2017 %Hba1C Fmb825 Gluc Ave 163 mg/dL 06/17/2017 Comp Metabolic Vhb463 NA 137 mEq/L 06/17/2017 Comp Metabolic Lxa574 K 3.8 mEq/L 06/17/2017 Comp Metabolic Vej565 CL 98 mEq/L 06/17/2017 Comp Metabolic Hsq012 CO2 30.0 mEq/L 06/17/2017 Comp Metabolic Huo951 AN ION GAP 13 06/17/2017 Comp Metabolic Opl337 GL UCOSE 157 mg/dL 06/17/2017 Comp Metabolic Mun361 Cr eat 1.0 mg/dL 06/17/2017 Comp Metabolic Ipu676 eG FR 76 ml/min/1.73m2 06/17 Comp Metabolic Jnt553 BUN 18 mg/dL 06/17/2017 Comp Metabolic Fxb952 B/ C Ratio 18.0 Ratio 06/17/2017 Comp Metabolic Dol518 CA LCIUM 9.8 mg/dL 06/17/2017 Comp Metabolic Ncx660 AL K PHOS 57 U/L 06/17/2017 Comp Metabolic Ilu380 T(SGOT) 19 U/L 06/17/2017 Comp Metabolic Kip015 AL T(SGPT) 23 U/L 06/17/2017 Comp Metabolic Sbw841 BI LI T 0.6 mg/dL 06/17/2017 Comp Metabolic Nvh673 AL BUMIN 4.4 g/dL 06/17/2017 Comp Metabolic Rlh879 TP RO 6.8 g/dL 06/17/2017 Comp Metabolic Syz686 GL OB 2.4 g/dL 06/17/2017 Comp Metabolic Zjl443 A/ G Ratio 1.9 Ratio 06/17/2017 Comp Metabolic Qwg664 Os mo 279 mOsmo 06/17/2017 Review of Systems System Result Effective Dates Constitutional No recent illness 01/25/2019 Constitutional No [...] developed 04/03/2018 None Full Exam - General 1995 [...] normal 01/27/2018 None Full Exam - General 1995 Eyes conjunctiva/eyelids Overall: cornea clear 01/27/2018 None Full Exam - General 1994 Eyes conjunctiva/eyelids Overall: conjunctiva clear 01/27/2018 None Full Exam - General 1995 Ears/Nose/Throat lips/teeth/gingiva Overall: benign lips 01/27/2018 None Full Exam - General 1995 Ears/Nose/Throat [...] skin Location: scalp 10/08/2017 [place] - right oriental orthodox, mid fo rehead/scalp, left posterior neck - [...] skin Location: scalp 08/27/2017 [place] - right oriental orthodox, mid fo rehead/scalp - cryotherapy to area, [...] CPT-4: J3301 10/15/2018 THER/PROPH/DIAG INJ SC/IM CPT-4: 98952 10/15/2018 ADMIN INFLUENZA VIRU S VAC CPT-4: G0008 06/24/2018 FLU VACC PRSV FREE I NC ANTIG CPT-4: 39346 06/24/2018 GLUC MONITOR CONT PH YS I&R CPT-4: 15435 01/27/2018 PPPS, SUBSEQ VISIT CPT- 4: G0439 01/21/2018 GLUCOSE MONITORING CONT CPT-4: 72118 01/06/2018 ADMIN INFLUENZA VIRU S VAC CPT-4: G0008 06/09/2017 FLU VACC PRSV FREE I NC ANTIG CPT-4: 31865 06/09/2017 Vital Signs Date Vital 01/25/2019 Blood Pressure 1: 140/74 Code: 8480-6 BMI: 32.8 Code: 81635-6 Heart Rate 1: 60 bpm Height: 5'8" SpO2: 96% Weight: 216 lbs 11/16/2018 Blood Pressure 1: 154/90 Code: 8480-6 BMI: 33.1 Code: 72281-6 Heart Rate 1: 84 bpm Height: 5'8" SpO2: 96% Weight: 218 lbs 10/15/2018 Blood Pressure 1: 140/70 Code: 8480-6 BMI: 33.5 Code: 45644-0 Heart Rate 1: 72 bpm Height: 5'8" SpO2: 98% Weight: 220 lbs 08/05/2018 Blood Pressure 1: 132/56 Code: 8480-6 BMI: 34.5 Code: 87538-1 Heart Rate 1: 65 bpm Height: 5'8" SpO2: 95% Weight: 227 lbs 06/22/2018 Blood Pressure 1: 144/86 Code: 8480-6 BMI: 36.0 Code: 65202-1 Heart Rate 1: 74 bpm Height: 5'8" SpO2: 98% Weight: 237 lbs 05/14/2018 Blood Pressure 1: 132/72 Code: 8480-6 Height: Weight: 04/27/2018 Blood Pressure 1: 148/78 Code: 8480-6 BMI: 35.6 Code: 10590-0 Heart Rate 1: 77 bpm Height: 5'8" SpO2: 97% Weight: 234 lbs 04/03/2018 Blood Pressure 1: 156/80 Code: 8480-6 BMI: 35.4 Code: 73797-3 Heart Rate 1: 70 bpm Height: 5'8" SpO2: 97% Weight: 233 lbs 01/27/2018 BMI: 35.6 Code: 30393-5 Heart Rate 1: 86 bpm Height: 5'8" SpO2: 98% Weight: 234 lbs 01/21/2018 Heigh t: Weight: 01/06/2018 Heigh t: Weight: 12/31/2017 Blood Pressure 1: 140/86 Code: 8480-6 BMI: 34.2 Code: 55648-9 Heart Rate 1: 80 bpm Height: 5'8" SpO2: 98% Weight: 225 lbs 10/08/2017 Blood Pressure 1: 152/74 Code: 8480-6 BMI: 34.2 Code: 83639-8 Heart Rate 1: 67 bpm Height: 5'8" SpO2: 98% Weight: 225 lbs 08/27/2017 Blood Pressure 1: 144/82 Code: 8480-6 BMI: 34.2 Code: 82986-3 Heart Rate 1: 70 bpm Height: 5'8" SpO2: 98% Weight: 225 lbs 06/10/2017 Blood Pressure 1: 150/84 Code: 8480-6 BMI: 35.0 Code: 44118-9 Heart Rate 1: 67 bpm Height: 5'8" SpO2: 98% Weight: 230 lbs 05/20/2017 Blood Pressure 1: 146/76 Code: 8480-6 BMI: 35.3 Code: 58796-0 Heart Rate 1: 70 bpm Height: 5'8" SpO2: 98% Weight: 232 lbs Functional Status No Functional Status data History of Present Illness Symptom Name Status Resu lt Effective Date Notes Location on the right leg 01/25/2019 None [...] Encounters Encounter Performer Loca tion Codes Date 83474 EST. PATIENT, LEVEL III Diagnosis: Cellulitis of right lower limb[ICD10: L03.115] Diagnosis: Bitten or stung by nonvenomous insect and other nonvenomous arthropods, initial encounter[ICD10: W57.XXXA] Laney Guerrero MD, [facility] CPT-4: 86953 01/25/2019 14886 EST. PATIENT, LEVEL III Diagnosis: Type 2 diabetes mellitus with hyperglycemia[ICD10: E11.65] Diagnosis: Essential (primary) hypertension[ICD10: I10] Laney Guerrero MD, [facility] CPT-4: 66547 11/16/2018 07174 EST. PATIENT, LEVEL IV Diagnosis: Other acute sinusitis[ICD10: J01.80] Diagnosis: Other allergic rhinitis[ICD10: J30.89] [facility] CPT-4: 87858 10/15/2018 72768 EST. PATIENT, LEVEL III Diagnosis: Type 2 diabetes mellitus with hyperglycemia[ICD10: E11.65] [facility] CPT-4: 56761 08/05/2018 03847 EST. PATIENT, LEVEL III Diagnosis: Type 2 diabetes mellitus with hyperglycemia[ICD10: E11.65] Laney Guerrero MD, [facility] CPT-4: 58072 06/22/2018 90034 EST. PATIENT, LEVEL IV Diagnosis: Diplopia[ICD10: H53.2] Diagnosis: Other specified anemias[ICD10: D64.89] Laney Guerrero MD, [facility] CPT-4: 67797 05/14/2018 42887 EST. PATIENT, LEVEL III Diagnosis: Benign paroxysmal vertigo, bilateral[ICD10: H81.13] Diagnosis: Other allergic rhinitis[ICD10: J30.89] Laney Guerrero MD, [facility] CPT-4: 79492 04/27/2018 72009 EST. PATIENT, LEVEL III Diagnosis: Type 2 diabetes mellitus with hyperglycemia[ICD10: E11.65] Diagnosis: Other fatigue[ICD10: R53.83] Diagnosis: Other malaise[ICD10: R53.81] Diagnosis: Bitten or stung by nonvenomous insect and other nonvenomous arthropods, initial encounter[ICD10: W57.XXXA] Diagnosis: Cellulitis of right upper limb[ICD10: L03.113] Diagnosis: Mixed hyperlipidemia[ICD10: E78.2] Laney Guerrero MD, [facility] CPT-4: 52328 04/03/2018 ([id number]) 51056 EST. P ATIENT, LEVEL III Diagnosis: Type 2 diabetes mellitus with hyperglycemia[ICD10: E11.65] Laney Guerrero MD, [facility] CPT-4: 66964 01/27/2018 ([id number]) Miscellaneou s no charge Diagnosis: Type 2 diabetes mellitus with hyperglycemia[ICD10: E11.65] Laney Guerrero MD, [facility] CPT-4: 53248 01/13/2018 90234 EST. PATIENT, LEVEL III Diagnosis: Type 2 diabetes mellitus with hyperglycemia[ICD10: E11.65] Diagnosis: Essential (primary) hypertension[ICD10: I10] Diagnosis: Mixed hyperlipidemia[ICD10: E78.2] Laney Guerrero MD, [facility] CPT-4: 26841 12/31/2017 03753 EST. PATIENT, LEVEL III Diagnosis: Type 2 diabetes mellitus with hyperglycemia[ICD10: E11.65] Diagnosis: Essential (primary) hypertension[ICD10: I10] Diagnosis: Mixed hyperlipidemia[ICD10: E78.2] Diagnosis: Actinic keratosis[ICD10: L57.0] Laney Guerrero MD, [facility] CPT-4: 97582 10/08/2017 72708 EST. PATIENT, LEVEL III Diagnosis: Type 2 diabetes mellitus with hyperglycemia[ICD10: E11.65] Diagnosis: Essential (primary) hypertension[ICD10: I10] Diagnosis: Mixed hyperlipidemia[ICD10: E78.2] Diagnosis: Actinic keratosis[ICD10: L57.0] Laney Guerrero MD, [facility] CPT-4: 12536 08/27/2017 36291 EST. PATIENT, LEVEL III Diagnosis: Type 2 diabetes mellitus with hyperglycemia[ICD10: E11.65] Diagnosis: Essential (primary) hypertension[ICD10: I10] Diagnosis: Mixed hyperlipidemia[ICD10: E78.2] [facility] CPT-4: 06838 06/25/2017 ([id number]) 89200 EST. 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 The patient was instructed to use the antibiotic ointment as per RX. The patient is to call for any change in symptoms, increase in size of the lesion, increase in pain, worsening redness, warmth, discharge. 01/25/2019 Appointment: Laney Luther WPtel: [address] [place], [place] [address] [place] (15 min) Moderate 01/25/2019 Patient Education: Patient [...] control. 11/16/2018 Appointment: Karo Guerrero WPtel: [phone] [facility] (15 min) Moderate 11/16/2018 [facility]ment: [phone] [place] ([place] min) Complex 11/16/2018 Patient Education: Patient Medication Summary Completed 11/16/2018 Patient Education: Diabetes Completed 11/16/2018 Appointment: [facility] Luther [phone] [place] (15 min) Moderate 11/02/2018 Patient Education: Patient [...] spray. 10/15/2018 Appointment: Laney Luther WPtel: [phone] [facility] (30 min) Complex 10/15/2018 Patient Education: [...] control. 08/05/2018 Appointment: Laney Luther WPtel: [phone] [facility] (15 min) Moderate 08/05/2018 Patient Education: Patient Medication Summary Completed 08/05/2018 Appointment: [facility] Luther [phone] [id number] ([place]) Moderate 07/17/2018 Referral: Kevin Cuevas Referral Initiated 07/07/2018 Appointment: Andrey 06/24/2018 Patient Education: Patient Medication Summary Completed [...] 06/22/2018 Appointment: Laney Luther WPtel: [id number] (15 min) Moderate 06/22/2018 Patient Education: Patient Medication Summary Completed 06/22/2018 Patient Education: Diabetes Completed 06/22/2018 Care Plan: Referral Order SNOMED-CT : [id number] Pending 06/22/2018 Referral: [facility] Referral Initiated 06/02/2018 Appointment: Nurse Visit 05/18/2018 [...] concerns. 05/14/2018 Appointment: Laney Luther WPtel: [phone] [facility] (15 min) Moderate 05/14/2018 Patient Education: [...] 04/27/2018 Care Plan: Referral Order SNOMED-CT : [id number] Pending 04/27/2018 Visit Plan: Diabetes Mellitus - [...] months for follow up on the patient's bow repairer custom gumaro medical problem and to assure normal liver response to medications. 04/03/2018 Appointment: [facility] Luther[facility] [id number] (15 min) Moderate 04/03/2018 Patient Education: Patient Medication Summary Completed 04/03/2018 Appointment: Laney Luther[facility] [id number] (30 min) Complex 03/31/2018 Patient Education: Patient [...] control. 01/27/2018 Appointment: Laney Luther [facility]el[phone] [id number] (30 min) Complex 01/27/2018 Patient Education: Patient [...] Summary Completed 01/21/2018 Appointment: Laney Luther [facility]Ptel[phone] [id number] (15 min) Moderate 01/13/2018 Patient Education: Patient [...] control. 01/06/2018 Appointment: Laney Luther [facility]Ptel[phone] [id number] (15 min) Moderate 01/06/2018 Patient Education: Patient [...] medications. 12/31/2017 Appointment: Laney Luther WPtel[phone] [id number] [place] (30 min) Complex 12/31/2017 Patient Education: Patient [...] concerns. 10/08/2017 Appointment: Laney Luther [facility]Ptel[phone] [id number] (30 min) Complex 10/08/2017 Patient Education: Patient Medication Summary Completed 10/08/2017 Appointment: Laney Luther [facility]el[phone] [id number] (15 min) Moderate 10/07/2017 Visit Plan: Diabetes [...] acute concerns. 08/27/2017 Appointment: Laney Luther WPtel: [address] [place], [place] [id number] (30 min) Complex 08/27/2017 Patient Education: Patient Medication Summary Completed 08/27/2017 Visit Plan: Diabetes Mellitus - I nadeem harris recommended for the patient to have follow [...] to medications. 06/25/2017 Appointment: Laney Luther [facility]el[phone] [id number] (30 min) Complex 06/25/2017 Patient Education: Patient Medication Summary Completed 06/25/2017 Appointment: Debra Ramirez WPtel: [phone] [phone] (30 min) Complex 06/24/2017 Visit Plan: Hypertension [...] medications. 06/10/2017 Appointment: Debra Ramirez [facility]el[phone] [id number] [place] (30 min) Complex 06/10/2017 Patient Education: Patient [...] glucose control. 05/20/2017 Appointment: Laney Luther WPtel: [address] [place] [id number] New Patient 05/20/2017 Patient Education: Patient Medication Summary Completed 05/20/2017 Referral: Christian Johnson [facility] Referral Initiated Referral: Kevin Cuevas Referral Initiated Instructions Comment . Diabetes Mellitus - I have recommended [...] or with any changes, questions, or concerns. Will refer you to Dr Frederick Cuevas [...] to allow for greater blood glucose control. start zyrtec daily - let your eye [...] the office for further instructions/medication interventions. . tick bite - The milana serna was instructed in appropriate wound care. The patient was instructed to use the antibiotic ointment as per RX. The patient is to call for any change in symptoms, increase in size of the lesion, increase in pain, worsening redness, warmth, discharge. . Diabetes Mellitus - I have recommended [...] drainage, or any other acute concerns. . Hypertension - e patient has been [...] blood glucose control. GET RECENT LABS FROM [facility] FASTING LABS NEXT WEEK UNLESS WE [...] spray in the nasal steroid allergy spray. No changes - follow a diabetic diet [...]
--- OUTSIDE RECORDS SUMMARY | 2020-02-09 07:03 | XMS REPORT | CCD ---
Author Author Gunnar Luther Organization Karo Guerrero MD, [facility] Address [address] [place] [address] Phone Care Team Providers Care Disability Liaison Officer Name Role Phone PP Unavailable CCM Unavailable Summary Purpose Interface Exchange Insurance Providers Payer name Policy type / Coverage type Covered democrat ID Effective Begin Date Effective End Date WPS Medicare Part B Medicare Part B [id number] Unknown Aetna Medicare Part B AH [id number] Unknown Cigna Medicare Part B 80 [id number] Unknown Family history Sister Diagnosis Age At [...] ed reddy 05/20/[address]: 979839524 Never smoker 05/20/[address]: 075653559 Never drinks alcohol 05/20/2017 Allergies, Adverse Reactions, [...] Date Stop Date Sta s Fill Instructions doxycycline hyclate 100 mg capsule RxNorm: 0356940 1 Capsule(s) PO BID 01/25/2019 02/03/2019 Ac tive glimepiride 2 mg tablet RxNorm: 799375 TAKE 1 TABLET BY MOUTH TWICE DAILY FOR D IABETES 01/07/2019 01/01/2020 Active diltiazem CD 360 mg capsule,extended release 24 hr RxNorm: 470012 1 CAPSULE(S) PO QHS 12/29/2018 12/23/2019 Ac tive atenolol 50 mg-chlor thalidone 25 mg tablet RxNorm: 754587 1 TABLET(S) PO DAILY 12/17/2018 12/11/2019 Ac tive PLEASE SEND REFILL REQUESTS ELECTRONICAL LY metformin ER 750 mg tablet,extended release 24 hr RxNorm: 264873 2 TABLET(S) PO DAILY 12/17/2018 06/14/2019 Ac tive metformin ER 750 mg tablet,extended release 24 hr RxNorm: 921988 2 TABLET(S) PO DAILY 11/13/2018 12/16/2018 Inactive Tradjenta 5 mg tablet RxNorm: 8817903 TAKE 1 TABLET BY MOUTH DAILY 10/16/2018 03/14/2019 Ac tive Kenalog 40 mg/mL benitez pension for injection RxNorm: 8845716 1 Milliliter(s) Inj 10/15/2018 10/15/2018 In active Tradjenta 5 mg tablet RxNorm: 3585173 TAKE 1 TABLET BY MOUTH DAILY 09/18/2018 02/14/2019 Ac tive metformin ER 750 mg tablet,extended release 24 hr RxNorm: 677217 2 TABLET(S) PO DAILY 07/13/2018 11/09/2018 Inactive Tradjenta 5 mg tablet RxNorm: 3288332 TAKE 1 TABLET BY MOUTH DAILY 07/02/2018 09/17/2018 In active One Touch Test strips RxNorm: 1 Miscellaneous BID 06/29/2018 07/28/2018 Inactive Zyrtec 10 mg tablet RxNorm: 7404715 1 Tablet(s) PO daily 04/27/2018 05/26/2018 Inactive doxycycline hyclate 100 mg capsule RxNorm: 7120843 1 Capsule(s) PO BID 04/03/2018 04/12/2018 In active meclizine 25 mg tablet RxNorm: 695570 1 Tablet(s) PO TID as needed Dizziness 04/03/2018 04/07/2018 In active metformin ER 750 mg tablet,extended release 24 hr RxNorm: 816260 2 TABLET(S) PO DAILY 02/03/2018 06/02/2018 Inactive glimepiride 2 mg tablet RxNorm: 420984 TAKE 1 TABLET BY MOUTH TWICE DAILY FOR D IABETES 01/13/2018 04/07/2019 Active glimepiride 2 mg tablet RxNorm: 073506 TAKE 1 TABLET BY MOUTH TWICE DAILY FOR D IABETES 01/11/2018 01/05/2019 Inactive diltiazem CD 360 mg capsule,extended release 24 hr RxNorm: 069014 1 CAPSULE(S) PO QHS 01/02/2018 12/27/2018 Inactive atenolol 50 mg-chlor thalidone 25 mg tablet RxNorm: 350195 1 Tablet(s) PO daily 12/18/2017 12/12/2018 In active PLEASE SEND REFILL REQUESTS ELECTRONICAL LY Tradjenta 5 mg tablet RxNorm: 9133410 TAKE 1 TABLET BY MOUTH DAILY 12/15/2017 05/13/2018 In active metformin ER 750 mg tablet,extended release 24 hr RxNorm: 286804 2 TABLET(S) PO DAILY 11/05/2017 12/16/2018 Inactive metformin ER 750 mg tablet,extended release 24 hr RxNorm: 240110 2 TABLET(S) PO DAILY 11/03/2017 02/02/2018 Inactive atorvastatin 20 mg t ablet RxNorm: 566796 TAKE 1 TABLET BY MOUT H EVERY NIGHT AT BEDTIME FOR CHOLESTEROL 08/28/2017 08/22/2018 Inactive Zithromax Z-Maury 250 mg tablet RxNorm: 683977 1 Tablet(s) PO UD 08/15/2017 04/13/2018 Inactive Tamiflu 75 mg capsule RxNorm: 282878 1 Capsule(s) PO BID 08/15/2017 08/14/2017 Inactive Tamiflu 75 mg capsule RxNorm: 178072 1 Capsule(s) PO BID 08/15/2017 08/19/2017 Inactive Tradjenta 5 mg tablet RxNorm: 8664639 TAKE 1 TABLET BY MOUTH DAILY 08/12/2017 12/09/2017 In active metformin ER 750 mg tablet,extended release 24 hr RxNorm: 677080 TAKE 2 TABLET BY MOUT H ONCE A DAY DIRECTED 08/08/2017 12/16/2018 Inactive SAVINGS FOR NON-COVERED MED ICATIONS Claims: BIN: [id number], PCN: [id number], GROUP: [facility], Patient ID: [id number] Phone; Questions: Your[facility] [phone] metformin ER 750 mg tablet,extended release 24 hr RxNorm: 901147 2 Tablet(s) PO daily 08/07/2017 08/06/2017 Inactive metformin ER 750 mg tablet,extended release 24 hr RxNorm: 960924 2 Tablet(s) PO daily 08/07/2017 11/02/2017 Inactive glimepiride 2 mg tablet RxNorm: 295955 TAKE 1 TABLET BY MOUTH TWICE DAILY FOR D IABETES 07/18/2017 01/10/2018 Inactive diltiazem CD 360 mg capsule,extended release 24 hr RxNorm: 989152 1 Capsule(s) PO QHS 07/03/2017 12/29/2017 Inactive One Touch Test strips RxNorm: 1 Miscellaneous daily 05/30/2017 06/28/2017 Inactive One Touch Test strips RxNorm: 1 Miscellaneous daily 05/30/2017 05/29/2017 Inactive iron gluconate-B cmp lx-potassium iodide-minerals oral RxNorm: 69019 oral No Start Date Active Super B Complex 100 tablet RxNorm: 1 Tablet(s) PO daily No Start Date Active Glucosamine Chondroi tin Maximum Strength oral RxNorm: 4845 oral No Start Date Active garlic 1,000 mg capsule RxNorm: 126539 1 Capsule(s) PO BID No Start Date Active vitamin E (dl, aceta te) 400 unit capsule RxNorm: 532916 1 Capsule(s) PO daily No Start Date Active beta carotene 25,000 unit tablet RxNorm: 359735 1 Tablet(s) PO daily No Start Date Active rutin 500 mg tablet RxNorm: 021457 1/2 Tablet(s) PO daily No Start Date Active Calcium 600 + [place] ls oral RxNorm: 604695 oral No S tart Date Active Vitamin D3 1,000 uni t tablet RxNorm: 395397 1 Tablet(s) PO daily No Start Date Active Vitamin C 500 mg tablet RxNorm: 836859 1 Tablet(s) PO daily No Start Date Active acidophilus 25 susanne on cell-pectin, citrus 100 mg tablet RxNorm: 456297 1 Tablet(s) PO BID No Start Date Active Zinc and C oral RxNorm: oral No Start Date Active aspirin 81 mg chewab le tablet RxNorm: 095149 1 Tablet(s) PO QPM No Start Date Active Zegerid OTC 20 mg-1. 1 gram capsule RxNorm: 075248 1 Capsule(s) PO daily No Start Date Active magnesium 250 mg tablet RxNorm: 1 Tablet(s) PO daily No Start Date Active flaxseed oil 1,000 m g capsule RxNorm: 853891 1 Capsule(s) PO BID No Start Date Active milk thistle 175 mg tablet RxNorm: 715428 1 Tablet(s) PO daily No Start Date Active metformin ER 750 mg tablet,extended release 24 hr RxNorm: 213108 2 Tablet(s) PO daily No Start Date 08/06/2017 Inactive atorvastatin 20 mg t ablet RxNorm: 640932 1 Tablet(s) PO daily No Start Date 08/27/2017 Inactive Tradjenta 5 mg tablet RxNorm: 7190698 1 Tablet(s) PO daily No Start Date 08/11/2017 Inactive diltiazem ER 300 mg tablet,extended release 24 hr RxNorm: 237361 1 Tablet(s) PO daily No Start Date 05/18/2017 Inactive glimepiride 2 mg tablet RxNorm: 566642 1 Tablet(s) PO BID No Start Date 07/17/2017 Inactive Zithromax Z-Maury 250 mg tablet RxNorm: 013720 1 Tablet(s) PO UD No Start Date 08/14/2017 Inactive atenolol 50 mg-chlor thalidone 25 mg tablet RxNorm: 647444 1 Tablet(s) PO daily No Start Date 12/17/2017 Inactive diltiazem CD 360 mg capsule,extended release 24 hr RxNorm: 476993 1 Capsule(s) PO QHS No Start Date 07/02/2017 Inactive Medication Administered Medication Codes Instruc tions Start Date Status Kenalog 40 mg/mL suspension for injection RxNorm: 0591455 1Milliliter 10/15/2018 N o longer Active Immunizations [...] Item Item Code Result Date Comp Metabolic Thp548 NA 137 mEq/L 11/09/2018 Comp Metabolic Kbw502 K 4.4 mEq/L 11/09/2018 Comp Metabolic Ded145 CL 97 mEq/L 11/09/2018 Comp Metabolic Htf398 CO2 30.0 mEq/L 11/09/2018 Comp Metabolic Fwx090 AN ION GAP 14 11/09/2018 Comp Metabolic Gil980 GL UCOSE 122 mg/dL 11/09/2018 Comp Metabolic Zge181 Cr eat 1.1 mg/dL 11/09/2018 Comp Metabolic Ehk109 eG FR 70 ml/min/1.73m2 11/09 Comp Metabolic Hyv783 BUN 21 mg/dL 11/09/2018 Comp Metabolic Laq092 B/ C Ratio 19.6 Ratio 11/09/2018 Comp Metabolic Gcd944 CA LCIUM 10.2 mg/dL 11/09/2018 Comp Metabolic Vqj021 AL K PHOS 45 U/L 11/09/2018 Comp Metabolic Mcr929 T(SGOT) 19 U/L 11/09/2018 Comp Metabolic Iby334 AL T(SGPT) 24 U/L 11/09/2018 Comp Metabolic Tmj754 BI LI T 0.5 mg/dL 11/09/2018 Comp Metabolic Ddc396 AL BUMIN 4.4 g/dL 11/09/2018 Comp Metabolic Meu495 TP RO 6.7 g/dL 11/09/2018 Comp Metabolic Oiw101 GL OB 2.3 g/dL 11/09/2018 Comp Metabolic Ref712 A/ G Ratio 1.9 Ratio 11/09/2018 Comp Metabolic Yjl749 Os mo 278 mOsmo 11/09/2018 Cbc With [...] 32.0 pg 11/09/2018 Cbc With Differential Ord2 [place]% 9.8 % 11/09/2018 Cbc With Differential Ord2 [...] 2.13 K/ul 11/09/2018 Cbc With Differential Ord2 [place] ABS# 0.8 K/ul 11/09/2018 Cbc With Differential Ord2 Eos ABS# 0.1 K/ul 11/09/2018 Cbc With Differential Ord2 Baso ABS# 0.0 K/ul 11/09/2018 %Hba1C Flq030 % HbA1c 27385-2 6.7 % 11/09/2018 %Hba1C Zzs037 Gluc Ave 146 mg/dL 11/09/2018 Tsh Ord6 [...] 31.4 pg 08/03/2018 Cbc With Differential Ord2 [place]% 11.9 % 08/03/2018 Cbc With Differential Ord2 [...] 1.62 K/ul 08/03/2018 Cbc With Differential Ord2 [place] ABS# 0.9 K/ul 08/03/2018 Cbc With Differential Ord2 Eos ABS# 0.1 K/ul 08/03/2018 Cbc With Differential Ord2 Baso ABS# 0.0 K/ul 08/03/2018 Comp Metabolic Ezy264 NA 135 mEq/L 08/03/2018 Comp Metabolic Vjn795 K 3.5 mEq/L 08/03/2018 Comp Metabolic Ixf297 CL 95 mEq/L 08/03/2018 Comp Metabolic Zmv146 CO2 30.0 mEq/L 08/03/2018 Comp Metabolic Eun198 AN ION GAP 14 08/03/2018 Comp Metabolic Kjw007 GL UCOSE 152 mg/dL 08/03/2018 Comp Metabolic Qrl029 Cr eat 1.2 mg/dL 08/03/2018 Comp Metabolic Bnw990 eG FR 61 ml/min/1.73m2 08/03 Comp Metabolic Xew971 BUN 23 mg/dL 08/03/2018 Comp Metabolic Stw719 B/ C Ratio 19.0 Ratio 08/03/2018 Comp Metabolic Kex495 CA LCIUM 9.6 mg/dL 08/03/2018 Comp Metabolic Hbm430 AL K PHOS 51 U/L 08/03/2018 Comp Metabolic Hgg953 T(SGOT) 20 U/L 08/03/2018 Comp Metabolic Xem991 AL T(SGPT) 24 U/L 08/03/2018 Comp Metabolic Pfr872 BI LI T 0.5 mg/dL 08/03/2018 Comp Metabolic Ynd052 AL BUMIN 4.3 g/dL 08/03/2018 Comp Metabolic Xtf150 TP RO 6.8 g/dL 08/03/2018 Comp Metabolic Weo341 GL OB 2.6 g/dL 08/03/2018 Comp Metabolic Uyg086 A/ G Ratio 1.7 Ratio 08/03/2018 Comp Metabolic Zox756 Os mo 277 mOsmo 08/03/2018 %Hba1C Pwj877 % HbA1c 59416-5 7.3 % 08/03/2018 %Hba1C Gdj121 Gluc Ave 163 mg/dL 08/03/2018 Cbc With [...] 31.2 pg 05/14/2018 Cbc With Differential Ord2 [place]% 12.2 % 05/14/2018 Cbc With Differential Ord2 [...] 1.81 K/ul 05/14/2018 Cbc With Differential Ord2 [place] ABS# 1.0 K/ul 05/14/2018 Cbc With Differential Ord2 Eos ABS# 0.1 K/ul 05/14/2018 Cbc With Differential Ord2 Baso ABS# 0.0 K/ul 05/14/2018 Ehrlichia Chaffeensis Antibody Igm [id number] EHRLICHIA CHAFFEENSIS IGM < 1:16 04/09/2018 Ehrlichia Chaffeensis Antibody Igg [id number] EHRLICHIA CHAFFEENSIS IGG 1:64 04/09/2018 [place] Spotted Fever Igg/Igm 80496 3 [place] SPOTTED FEVER IGM EIA . 04/09/2018 [place] Spotted Fever Igg/Igm 56445 3 RMSF, IGM 0.36 index 04/09/2018 [place] Spotted Fever Igg/Igm 22974 3 [place] SPOTTED FEVER IGG EIA FLEX . 04/09/2018 [place] Spotted Fever Igg/Igm 71215 3 RMSF, IGG SCREEN-FLEX Negative 04/09/2018 Lymes Disease Total Antibodies With Western Blot Refle x [id number] B. BURGDORFERI, IGG/IGM 0.31 04/07/2018 Lymes Disease Total Antibodies With Western Blot Refle x [id number] INTERPRETATION 04/07/2018 %Hba1C Hrt664 % HbA1c 38945-2 7.2 % 03/31/2018 %Hba1C Dpz887 Gluc Ave 160 mg/dL 03/31/2018 Lipid Ord30 [...] 31.3 pg 12/22/2017 Cbc With Differential Ord2 [place]% 11.5 % 12/22/2017 Cbc With Differential Ord2 [...] 2.16 K/ul 12/22/2017 Cbc With Differential Ord2 [place] ABS# 1.1 K/ul 12/22/2017 Cbc With Differential Ord2 Eos ABS# 0.1 K/ul 12/22/2017 Cbc With Differential Ord2 Baso ABS# 0.0 K/ul 12/22/2017 Comp Metabolic Sry599 NA 141 mEq/L 12/22/2017 Comp Metabolic Gjy661 K 3.9 mEq/L 12/22/2017 Comp Metabolic Njy380 CL 99 mEq/L 12/22/2017 Comp Metabolic Edn911 CO2 32.0 mEq/L 12/22/2017 Comp Metabolic Ygs408 AN ION GAP 14 12/22/2017 Comp Metabolic Ejk575 GL UCOSE 152 mg/dL 12/22/2017 Comp Metabolic Mnb889 Cr eat 1.0 mg/dL 12/22/2017 Comp Metabolic Ulz355 eG FR 78 ml/min/1.73m2 12/22 Comp Metabolic Kyd491 BUN 27 mg/dL 12/22/2017 Comp Metabolic Nkr826 B/ C Ratio 27.8 Ratio 12/22/2017 Comp Metabolic Mgx780 CA LCIUM 9.7 mg/dL 12/22/2017 Comp Metabolic Edu776 AL K PHOS 56 U/L 12/22/2017 Comp Metabolic Tmi428 T(SGOT) 18 U/L 12/22/2017 Comp Metabolic Rrz517 AL T(SGPT) 20 U/L 12/22/2017 Comp Metabolic Wcy054 BI LI T 0.4 mg/dL 12/22/2017 Comp Metabolic Aod034 AL BUMIN 4.2 g/dL 12/22/2017 Comp Metabolic Uhl378 TP RO 6.4 g/dL 12/22/2017 Comp Metabolic Kkn990 GL OB 2.2 g/dL 12/22/2017 Comp Metabolic Els815 A/ G Ratio 1.9 Ratio 12/22/2017 Comp Metabolic Ncx667 Os mo 289 mOsmo 12/22/2017 %Hba1C Bpa982 % HbA1c 44766-5 7.1 % 12/22/2017 %Hba1C Wif054 Gluc Ave 157 mg/dL 12/22/2017 Cbc With [...] 31.5 pg 09/22/2017 Cbc With Differential Ord2 [place]% 8.4 % 09/22/2017 Cbc With Differential Ord2 [...] 1.83 K/ul 09/22/2017 Cbc With Differential Ord2 [place] ABS# 0.9 K/ul 09/22/2017 Cbc With Differential Ord2 Eos ABS# 0.0 K/ul 09/22/2017 Cbc With Differential Ord2 Baso ABS# 0.0 K/ul 09/22/2017 %Hba1C Tug461 % HbA1c 00201-9 6.9 % 09/22/2017 %Hba1C Ihh648 Gluc Ave 151 mg/dL 09/22/2017 Tsh Ord6 [...] 31.6 pg 06/17/2017 Cbc With Differential Ord2 [place]% 11.1 % 06/17/2017 Cbc With Differential Ord2 [...] 2.35 K/ul 06/17/2017 Cbc With Differential Ord2 [place] ABS# 1.2 K/ul 06/17/2017 Cbc With Differential Ord2 Eos ABS# 0.1 K/ul 06/17/2017 Cbc With Differential Ord2 Baso ABS# 0.0 K/ul 06/17/2017 %Hba1C Kwf007 % HbA1c 20799-9 7.3 % 06/17/2017 %Hba1C Wpw997 Gluc Ave 163 mg/dL 06/17/2017 Comp Metabolic Bqx219 NA 137 mEq/L 06/17/2017 Comp Metabolic Tei951 K 3.8 mEq/L 06/17/2017 Comp Metabolic Arm987 CL 98 mEq/L 06/17/2017 Comp Metabolic Psr634 CO2 30.0 mEq/L 06/17/2017 Comp Metabolic Ctb189 AN ION GAP 13 06/17/2017 Comp Metabolic Ulb457 GL UCOSE 157 mg/dL 06/17/2017 Comp Metabolic Kha733 Cr eat 1.0 mg/dL 06/17/2017 Comp Metabolic Ibm607 eG FR 76 ml/min/1.73m2 06/17 Comp Metabolic Vfk932 BUN 18 mg/dL 06/17/2017 Comp Metabolic Oew917 B/ C Ratio 18.0 Ratio 06/17/2017 Comp Metabolic Lym880 CA LCIUM 9.8 mg/dL 06/17/2017 Comp Metabolic Krb671 AL K PHOS 57 U/L 06/17/2017 Comp Metabolic Nas321 T(SGOT) 19 U/L 06/17/2017 Comp Metabolic Ake652 AL T(SGPT) 23 U/L 06/17/2017 Comp Metabolic Pvk296 BI LI T 0.6 mg/dL 06/17/2017 Comp Metabolic Bxe562 AL BUMIN 4.4 g/dL 06/17/2017 Comp Metabolic Otw234 TP RO 6.8 g/dL 06/17/2017 Comp Metabolic Ccx795 GL OB 2.4 g/dL 06/17/2017 Comp Metabolic Qyy732 A/ G Ratio 1.9 Ratio 06/17/2017 Comp Metabolic Szo713 Os mo 279 mOsmo 06/17/2017 Review of [...] skin Location: scalp 10/08/2017 [place] - right adventism, mid fo rehead/scalp, left posterior neck - [...] skin Location: scalp 08/27/2017 [place] - right adventism, mid fo rehead/scalp - cryotherapy to area, [...] CPT-4: J3301 10/15/2018 THER/PROPH/DIAG INJ SC/IM CPT-4: 70186 10/15/2018 ADMIN INFLUENZA VIRU S VAC CPT-4: G0008 06/24/2018 FLU VACC PRSV FREE I NC ANTIG CPT-4: 75044 06/24/2018 GLUC MONITOR CONT PH YS I&R CPT-4: 48887 01/27/2018 PPPS, SUBSEQ VISIT CPT- 4: G0439 01/21/2018 GLUCOSE MONITORING CONT CPT-4: 71677 01/06/2018 ADMIN INFLUENZA VIRU S VAC CPT-4: G0008 06/09/2017 FLU VACC PRSV FREE I NC ANTIG CPT-4: 80321 06/09/2017 Vital Signs Date Vital 01/25/2019 Blood Pressure 1: 140/74 Code: 8480-6 BMI: 32.8 Code: 14525-0 Heart Rate 1: 60 bpm Height: 5'8" SpO2: 96% Weight: 216 lbs 11/16/2018 Blood Pressure 1: 154/90 Code: 8480-6 BMI: 33.1 Code: 25188-7 Heart Rate 1: 84 bpm Height: 5'8" SpO2: 96% Weight: 218 lbs 10/15/2018 Blood Pressure 1: 140/70 Code: 8480-6 BMI: 33.5 Code: 24734-2 Heart Rate 1: 72 bpm Height: 5'8" SpO2: 98% Weight: 220 lbs 08/05/2018 Blood Pressure 1: 132/56 Code: 8480-6 BMI: 34.5 Code: 35738-3 Heart Rate 1: 65 bpm Height: 5'8" SpO2: 95% Weight: 227 lbs 06/22/2018 Blood Pressure 1: 144/86 Code: 8480-6 BMI: 36.0 Code: 97031-4 Heart Rate 1: 74 bpm Height: 5'8" SpO2: 98% Weight: 237 lbs 05/14/2018 Blood Pressure 1: 132/72 Code: 8480-6 Height: Weight: 04/27/2018 Blood Pressure 1: 148/78 Code: 8480-6 BMI: 35.6 Code: 42765-6 Heart Rate 1: 77 bpm Height: 5'8" SpO2: 97% Weight: 234 lbs 04/03/2018 Blood Pressure 1: 156/80 Code: 8480-6 BMI: 35.4 Code: 70759-7 Heart Rate 1: 70 bpm Height: 5'8" SpO2: 97% Weight: 233 lbs 01/27/2018 BMI: 35.6 Code: 74135-0 Heart Rate 1: 86 bpm Height: 5'8" SpO2: 98% Weight: 234 lbs 01/21/2018 Heigh t: Weight: 01/06/2018 Heigh t: Weight: 12/31/2017 Blood Pressure 1: 140/86 Code: 8480-6 BMI: 34.2 Code: 38293-5 Heart Rate 1: 80 bpm Height: 5'8" SpO2: 98% Weight: 225 lbs 10/08/2017 Blood Pressure 1: 152/74 Code: 8480-6 BMI: 34.2 Code: 36177-0 Heart Rate 1: 67 bpm Height: 5'8" SpO2: 98% Weight: 225 lbs 08/27/2017 Blood Pressure 1: 144/82 Code: 8480-6 BMI: 34.2 Code: 19066-0 Heart Rate 1: 70 bpm Height: 5'8" SpO2: 98% Weight: 225 lbs 06/10/2017 Blood Pressure 1: 150/84 Code: 8480-6 BMI: 35.0 Code: 82948-7 Heart Rate 1: 67 bpm Height: 5'8" SpO2: 98% Weight: 230 lbs 05/20/2017 Blood Pressure 1: 146/76 Code: 8480-6 BMI: 35.3 Code: 70564-6 Heart Rate 1: 70 bpm Height: 5'8" [...] arthropods, initial encounter[ICD10: W57.XXXA] Laney Guerrero MD, [facility] CPT-4: 53786 01/25/2019 72932 EST. PATIENT, LEVEL III Diagnosis: Type 2 diabetes mellitus with hyperglycemia[ICD10: E11.65] Diagnosis: Essential (primary) hypertension[ICD10: I10] Laney Guerrero MD, [facility] CPT-4: 35952 11/16/2018 18587 EST. PATIENT, LEVEL IV Diagnosis: Other acute sinusitis[ICD10: J01.80] Diagnosis: Other allergic rhinitis[ICD10: J30.89] Laney Guerrero MD, [facility] CPT-4: 87703 10/15/2018 60802 EST. PATIENT, LEVEL III Diagnosis: Type 2 diabetes mellitus with hyperglycemia[ICD10: E11.65] Laney Guerrero MD, [facility] CPT-4: 73836 08/05/2018 18253 EST. PATIENT, LEVEL III Diagnosis: Type 2 diabetes mellitus with hyperglycemia[ICD10: E11.65] Laney Guerrero MD, [facility] CPT-4: 74930 06/22/2018 58513 EST. PATIENT, LEVEL IV Diagnosis: Diplopia[ICD10: H53.2] Diagnosis: Other specified anemias[ICD10: D64.89] Laney Guerrero MD, [facility] CPT-4: 57301 05/14/2018 06977 EST. PATIENT, LEVEL III Diagnosis: Benign paroxysmal vertigo, bilateral[ICD10: H81.13] Diagnosis: Other allergic rhinitis[ICD10: J30.89] Laney Guerrero MD, [facility] CPT-4: 13402 04/27/2018 62254 EST. PATIENT, LEVEL III Diagnosis: Type 2 diabetes mellitus with hyperglycemia[ICD10: E11.65] Diagnosis: Other fatigue[ICD10: R53.83] Diagnosis: Other malaise[ICD10: R53.81] Diagnosis: Bitten or stung by nonvenomous insect and other nonvenomous arthropods, initial encounter[ICD10: W57.XXXA] Diagnosis: Cellulitis of right upper limb[ICD10: L03.113] Diagnosis: Mixed hyperlipidemia[ICD10: E78.2] Laney Guerrero MD, [facility] CPT-4: 88923 04/03/2018 ([id number]) 39833 EST. P ATIENT, LEVEL III Diagnosis: Type 2 diabetes mellitus with hyperglycemia[ICD10: E11.65] Laney Guerrero MD, [facility] CPT-4: 77610 01/27/2018 ([id number]) Miscellaneou s no charge Diagnosis: Type 2 diabetes mellitus with hyperglycemia[ICD10: E11.65] Laney Guerrero MD, [facility] CPT-4: 61302 01/13/2018 21296 EST. PATIENT, LEVEL III Diagnosis: Type 2 diabetes mellitus with hyperglycemia[ICD10: E11.65] Diagnosis: Essential (primary) hypertension[ICD10: I10] Diagnosis: Mixed hyperlipidemia[ICD10: E78.2] Laney Guerrero MD, [facility] CPT-4: 86509 12/31/2017 61121 EST. PATIENT, LEVEL III Diagnosis: Type 2 diabetes mellitus with hyperglycemia[ICD10: E11.65] Diagnosis: Essential (primary) hypertension[ICD10: I10] Diagnosis: Mixed hyperlipidemia[ICD10: E78.2] Diagnosis: Actinic keratosis[ICD10: L57.0] Laney Guerrero MD, [facility] CPT-4: 06813 10/08/2017 52001 EST. PATIENT, LEVEL III Diagnosis: Type 2 diabetes mellitus with hyperglycemia[ICD10: E11.65] Diagnosis: Essential (primary) hypertension[ICD10: I10] Diagnosis: Mixed hyperlipidemia[ICD10: E78.2] Diagnosis: Actinic keratosis[ICD10: L57.0] Laney Guerrero MD, [facility] CPT-4: 79306 08/27/2017 79420 EST. PATIENT, LEVEL III Diagnosis: Type 2 diabetes mellitus with hyperglycemia[ICD10: E11.65] Diagnosis: Essential (primary) hypertension[ICD10: I10] Diagnosis: Mixed hyperlipidemia[ICD10: E78.2] Laney Guerrero MD, [facility] CPT-4: 67597 06/25/2017 ([id number]) 43430 EST. 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 01/25/2019 Appointment: Laney Luther WPtel: [address] [place], [place] [address] (15 min) Moderate 01/25/2019 Patient Education: Patient [...] 11/16/2018 Appointment: Karo Guerrero WPtel: [phone] [facility] (15 min) Moderate 11/16/2018 Appointment: Laney Luther WPtel: [facility] (30 min) Complex 11/16/2018 Patient Education: Patient Medication Summary Completed 11/16/2018 Patient Education: Diabetes Completed 11/16/2018 Appointment: Laney Luther WPtel: [phone] [facility] (15 min) Moderate 11/02/2018 Patient Education: Patient [...] allergy spray. 10/15/2018 [facility]ment[phone] ([facility] min) Complex 10/15/2018 Patient Education: Patient [...] glucose control. 08/05/2018 Appointment: Laney Luther WPtel: [phone] [facility] (15 min) Moderate 08/05/2018 Patient Education: Patient Medication Summary Completed 08/05/2018 Appointment: Laney Luther WPtel: [phone] [facility] (15 min) Moderate 07/17/2018 Referral: Kevin Cuevas [...] glucose control. 06/22/2018 Appointment: Laney Luther WPtel: [phone] [facility] (15 min) Moderate 06/22/2018 Patient Education: Patient Medication Summary Completed 06/22/2018 Patient Education: Diabetes Completed 06/22/2018 Care Plan: Referral Order SNOMED-CT : [id number] Pending 06/22/2018 Referral: Alex Christian Mueller [facility] Referral Initiated 06/02/2018 Appointment: Nurse Visit 05/18/2018 [...] concerns. 05/14/2018 Appointment: Laney Luther WPtel: [phone] [facility] (15 min) Moderate 05/14/2018 Patient Education: Patient [...] 04/27/2018 Care Plan: Referral Order SNOMED-CT : [id number] Pending 04/27/2018 Visit Plan: Diabetes Mellitus - [...] months for follow up on the patient's financial assistance advisor gumaro medical problem and to assure normal liver response to medications. 04/03/2018 Appointment: [facility] Luther [facility]el[phone] [facility] (15 min) Moderate 04/03/2018 Patient Education: Patient Medication Summary Completed 04/03/2018 Appointment: Lane[facility] Luther [id number] (30 min) Complex 03/31/2018 Patient Education: Patient [...] control. 01/27/2018 Appointment: Lane[facility] Luther [facility]Ptel[phone] [id number] (30 min) Complex 01/27/2018 Patient Education: Patient [...] Completed 01/21/2018 Appointment: Lane[facility] Luther [facility]Ptel[phone] [id number] (15 min) Moderate 01/13/2018 Patient Education: Patient [...] glucose control. 01/06/2018 Appointment: Lane[facility] Luther [facility]el[phone] [id number] (15 min) Moderate 01/06/2018 Patient Education: Patient [...] to medications. 12/31/2017 Appointment: [facility] Luther [facility]el[phone] [id number] (30 min) Complex 12/31/2017 Patient Education: Patient [...] any other acute concerns. 10/08/2017 Appointment: [facility] Luthertel[id number] ([facility]) Complex 10/08/2017 Patient Education: Patient Medication Summary Completed 10/08/2017 Appointment: Laney Luthertel[id number] (15 min) Moderate 10/07/2017 Visit Plan: Diabetes [...] acute concerns. 08/27/2017 Appointment: Laney Luther WPtel: [id number] ([facility] min) Complex 08/27/2017 Patient Education: Patient [...] to medications. 06/25/2017 Appointment: Laney Luther WPtel: [phone] [phone] (30 min) Complex 06/25/2017 Patient Education: Patient Medication Summary Completed 06/25/2017 Appointment: Debra Ramirez WPtel: [phone] [phone] (30 min) Complex 06/24/2017 Visit Plan: Hypertension [...] to medications. 06/10/2017 Appointment: Debra Ramirez WPtel: [phone] [phone] (30 min) Complex 06/10/2017 Patient Education: Patient [...] glucose control. 05/20/2017 Appointment: Laney Luther WPtel: [address] [place], [place] [id number] New Patient 05/20/2017 Patient Education: Patient Medication Summary Completed 05/20/2017 [id number] [facility] Initiated Referral: Kevin Cuevas Referral [...] the office for further instructions/medication interventions. . Sinusitis - Pt has acute infection [...] blood glucose control. GET RECENT LABS FROM [facility] FASTING LABS NEXT WEEK UNLESS [...]
--- OUTSIDE RECORDS SUMMARY | 2020-02-09 07:04 | XMS REPORT | CCD ---
Author Author Gunnar Luther Organization Karo Guerrero MD, [facility] Address [address] [place] [address] Phone Care Team Providers Care Human Resource Professional Name Role Phone PP Unavailable CCM Unavailable Summary Purpose Interface Exchange Insurance Providers Payer name Policy type / Coverage type Covered republican ID Effective Begin Date Effective End Date WPS Medicare Part B Medicare Part B [id number] Unknown Aetna Medicare Part B [id number] Unknown Cigna Medicare Part B 80 [id number] Unknown Family history Sister Diagnosis Age At [...] ed reddy 05/20/[address]: 878507962 Never smoker 05/20/[address]: 684047438 Never drinks alcohol 05/20/2017 Allergies, Adverse Reactions, [...] Instructions doxycycline hyclate 100 mg capsule RxNorm: 6547790 1 Capsule(s) PO BID 01/25/2019 02/03/2019 Ac tive glimepiride 2 mg tablet RxNorm: 121004 TAKE 1 TABLET BY MOUTH TWICE DAILY FOR D IABETES 01/07/2019 01/01/2020 Active diltiazem CD 360 mg capsule,extended release 24 hr RxNorm: 290576 1 CAPSULE(S) PO QHS 12/29/2018 12/23/2019 Ac tive atenolol 50 mg-chlor thalidone 25 mg tablet RxNorm: 990959 1 TABLET(S) PO DAILY 12/17/2018 12/11/2019 Ac tive PLEASE SEND REFILL REQUESTS ELECTRONICAL LY metformin ER 750 mg tablet,extended release 24 hr RxNorm: 710656 2 TABLET(S) PO DAILY 12/17/2018 06/14/2019 Ac tive metformin ER 750 mg tablet,extended release 24 hr RxNorm: 759052 2 TABLET(S) PO DAILY 11/13/2018 12/16/2018 Inactive Tradjenta 5 mg tablet RxNorm: 8030004 TAKE 1 TABLET BY MOUTH DAILY 10/16/2018 03/14/2019 Ac tive Kenalog 40 mg/mL benitez pension for injection RxNorm: 3624302 1 Milliliter(s) Inj 10/15/2018 10/15/2018 In active Tradjenta 5 mg tablet RxNorm: 5680943 TAKE 1 TABLET BY MOUTH DAILY 09/18/2018 02/14/2019 Ac tive metformin ER 750 mg tablet,extended release 24 hr RxNorm: 709388 2 TABLET(S) PO DAILY 07/13/2018 11/09/2018 Inactive Tradjenta 5 mg tablet RxNorm: 2356489 TAKE 1 TABLET BY MOUTH DAILY 07/02/2018 09/17/2018 In active One Touch Test strips RxNorm: 1 Miscellaneous BID 06/29/2018 07/28/2018 Inactive Zyrtec 10 mg tablet RxNorm: 8981343 1 Tablet(s) PO daily 04/27/2018 05/26/2018 Inactive doxycycline hyclate 100 mg capsule RxNorm: 8406729 1 Capsule(s) PO BID 04/03/2018 04/12/2018 In active meclizine 25 mg tablet RxNorm: 102821 1 Tablet(s) PO TID as needed Dizziness 04/03/2018 04/07/2018 In active metformin ER 750 mg tablet,extended release 24 hr RxNorm: 755309 2 TABLET(S) PO DAILY 02/03/2018 06/02/2018 Inactive glimepiride 2 mg tablet RxNorm: 834971 TAKE 1 TABLET BY MOUTH TWICE DAILY FOR D IABETES 01/13/2018 04/07/2019 Active glimepiride 2 mg tablet RxNorm: 129945 TAKE 1 TABLET BY MOUTH TWICE DAILY FOR D IABETES 01/11/2018 01/05/2019 Inactive diltiazem CD 360 mg capsule,extended release 24 hr RxNorm: 559301 1 CAPSULE(S) PO QHS 01/02/2018 12/27/2018 Inactive atenolol 50 mg-chlor thalidone 25 mg tablet RxNorm: 484605 1 Tablet(s) PO daily 12/18/2017 12/12/2018 In active PLEASE SEND REFILL REQUESTS ELECTRONICAL LY Tradjenta 5 mg tablet RxNorm: 5847867 TAKE 1 TABLET BY MOUTH DAILY 12/15/2017 05/13/2018 In active metformin ER 750 mg tablet,extended release 24 hr RxNorm: 866996 2 TABLET(S) PO DAILY 11/05/2017 12/16/2018 Inactive metformin ER 750 mg tablet,extended release 24 hr RxNorm: 337394 2 TABLET(S) PO DAILY 11/03/2017 02/02/2018 Inactive atorvastatin 20 mg t ablet RxNorm: 492903 TAKE 1 TABLET BY MOUT H EVERY NIGHT AT BEDTIME FOR CHOLESTEROL 08/28/2017 08/22/2018 Inactive Zithromax Z-Maury 250 mg tablet RxNorm: 661285 1 Tablet(s) PO UD 08/15/2017 04/13/2018 Inactive Tamiflu 75 mg capsule RxNorm: 524503 1 Capsule(s) PO BID 08/15/2017 08/14/2017 Inactive Tamiflu 75 mg capsule RxNorm: 620768 1 Capsule(s) PO BID 08/15/2017 08/19/2017 Inactive Tradjenta 5 mg tablet RxNorm: 9658951 TAKE 1 TABLET BY MOUTH DAILY 08/12/2017 12/09/2017 In active metformin ER 750 mg tablet,extended release 24 hr RxNorm: 091255 TAKE 2 TABLET BY MOUT H ONCE A DAY DIRECTED 08/08/2017 12/16/2018 Inactive SAVINGS FOR NON-COVERED MED ICATIONS Claims: BIN: [id number], PCN: [id number], GROUP: [facility], Patient ID: [id number] Phone; Questions: YourRx [phone] metformin ER 750 mg tablet,extended release 24 hr RxNorm: 645161 2 Tablet(s) PO daily 08/07/2017 08/06/2017 Inactive metformin ER 750 mg tablet,extended release 24 hr RxNorm: 888422 2 Tablet(s) PO daily 08/07/2017 11/02/2017 Inactive glimepiride 2 mg tablet RxNorm: 006450 TAKE 1 TABLET BY MOUTH TWICE DAILY FOR D IABETES 07/18/2017 01/10/2018 Inactive diltiazem CD 360 mg capsule,extended release 24 hr RxNorm: 078245 1 Capsule(s) PO QHS 07/03/2017 12/29/2017 Inactive One Touch Test strips RxNorm: 1 Miscellaneous daily 05/30/2017 06/28/2017 Inactive One Touch Test strips RxNorm: 1 Miscellaneous daily 05/30/2017 05/29/2017 Inactive iron gluconate-B cmp lx-potassium iodide-minerals oral RxNorm: 53736 oral No Start Date Active Super B Complex 100 tablet RxNorm: 1 Tablet(s) PO daily No Start Date Active Glucosamine Chondroi tin Maximum Strength oral RxNorm: 4845 oral No Start Date Active garlic 1,000 mg capsule RxNorm: 397877 1 Capsule(s) PO BID No Start Date Active vitamin E (dl, aceta te) 400 unit capsule RxNorm: 678673 1 Capsule(s) PO daily No Start Date Active beta carotene 25,000 unit tablet RxNorm: 844093 1 Tablet(s) PO daily No Start Date Active rutin 500 mg tablet RxNorm: 189158 1/2 Tablet(s) PO daily No Start Date Active Calcium 600 + Min[place] ls oral RxNorm: 775792 oral No S tart Date Active Vitamin D3 1,000 uni t tablet RxNorm: 222226 1 Tablet(s) PO daily No Start Date Active Vitamin C 500 mg tablet RxNorm: 468479 1 Tablet(s) PO daily No Start Date Active acidophilus 25 susanne on cell-pectin, citrus 100 mg tablet RxNorm: 898773 1 Tablet(s) PO BID No Start Date Active Zinc and C oral RxNorm: oral No Start Date Active aspirin 81 mg chewab le tablet RxNorm: 823835 1 Tablet(s) PO QPM No Start Date Active Zegerid OTC 20 mg-1. 1 gram capsule RxNorm: 560986 1 Capsule(s) PO daily No Start Date Active magnesium 250 mg tablet RxNorm: 1 Tablet(s) PO daily No Start Date Active flaxseed oil 1,000 m g capsule RxNorm: 461122 1 Capsule(s) PO BID No Start Date Active milk thistle 175 mg tablet RxNorm: 545065 1 Tablet(s) PO daily No Start Date Active metformin ER 750 mg tablet,extended release 24 hr RxNorm: 483483 2 Tablet(s) PO daily No Start Date 08/06/2017 Inactive atorvastatin 20 mg t ablet RxNorm: 905138 1 Tablet(s) PO daily No Start Date 08/27/2017 Inactive Tradjenta 5 mg tablet RxNorm: 1483637 1 Tablet(s) PO daily No Start Date 08/11/2017 Inactive diltiazem ER 300 mg tablet,extended release 24 hr RxNorm: 126791 1 Tablet(s) PO daily No Start Date 05/18/2017 Inactive glimepiride 2 mg tablet RxNorm: 415348 1 Tablet(s) PO BID No Start Date 07/17/2017 Inactive Zithromax Z-Maury 250 mg tablet RxNorm: 424937 1 Tablet(s) PO UD No Start Date 08/14/2017 Inactive atenolol 50 mg-chlor thalidone 25 mg tablet RxNorm: 573285 1 Tablet(s) PO daily No Start Date 12/17/2017 Inactive diltiazem CD 360 mg capsule,extended release 24 hr RxNorm: 371144 1 Capsule(s) PO QHS No Start Date 07/02/2017 Inactive Medication Administered Medication Codes Instruc tions Start Date Status Kenalog 40 mg/mL suspension for injection RxNorm: 4813244 1Milliliter 10/15/2018 N o longer Active Immunizations [...] Item Item Code Result Date Comp Metabolic Tdr848 NA 137 mEq/L 11/09/2018 Comp Metabolic Wrv209 K 4.4 mEq/L 11/09/2018 Comp Metabolic Hrq867 CL 97 mEq/L 11/09/2018 Comp Metabolic Lii219 CO2 30.0 mEq/L 11/09/2018 Comp Metabolic Hwm284 AN ION GAP 14 11/09/2018 Comp Metabolic Lck200 GL UCOSE 122 mg/dL 11/09/2018 Comp Metabolic Qzo932 Cr eat 1.1 mg/dL 11/09/2018 Comp Metabolic Xgx560 eG FR 70 ml/min/1.73m2 11/09 Comp Metabolic Elx982 BUN 21 mg/dL 11/09/2018 Comp Metabolic Bno252 B/ C Ratio 19.6 Ratio 11/09/2018 Comp Metabolic Gyz171 CA LCIUM 10.2 mg/dL 11/09/2018 Comp Metabolic Mkq611 AL K PHOS 45 U/L 11/09/2018 Comp Metabolic Gdm221 T(SGOT) 19 U/L 11/09/2018 Comp Metabolic Rkn409 AL T(SGPT) 24 U/L 11/09/2018 Comp Metabolic Nlb718 BI LI T 0.5 mg/dL 11/09/2018 Comp Metabolic Nqa578 AL BUMIN 4.4 g/dL 11/09/2018 Comp Metabolic Jvs526 TP RO 6.7 g/dL 11/09/2018 Comp Metabolic Qxa206 GL OB 2.3 g/dL 11/09/2018 Comp Metabolic Vbi495 A/ G Ratio 1.9 Ratio 11/09/2018 Comp Metabolic Glg593 Os mo 278 mOsmo 11/09/2018 Cbc With [...] 32.0 pg 11/09/2018 Cbc With Differential Ord2 [place]% 9.8 % 11/09/2018 Cbc With Differential Ord2 [...] 2.13 K/ul 11/09/2018 Cbc With Differential Ord2 [place] ABS# 0.8 K/ul 11/09/2018 Cbc With Differential Ord2 Eos ABS# 0.1 K/ul 11/09/2018 Cbc With Differential Ord2 Baso ABS# 0.0 K/ul 11/09/2018 %Hba1C Pqw113 % HbA1c 87028-5 6.7 % 11/09/2018 %Hba1C Tpd881 Gluc Ave 146 mg/dL 11/09/2018 Tsh Ord6 [...] 31.4 pg 08/03/2018 Cbc With Differential Ord2 [place]% 11.9 % 08/03/2018 Cbc With Differential Ord2 [...] 1.62 K/ul 08/03/2018 Cbc With Differential Ord2 [place] ABS# 0.9 K/ul 08/03/2018 Cbc With Differential Ord2 Eos ABS# 0.1 K/ul 08/03/2018 Cbc With Differential Ord2 Baso ABS# 0.0 K/ul 08/03/2018 Comp Metabolic Dlw292 NA 135 mEq/L 08/03/2018 Comp Metabolic Dwa076 K 3.5 mEq/L 08/03/2018 Comp Metabolic Xmv692 CL 95 mEq/L 08/03/2018 Comp Metabolic Whc112 CO2 30.0 mEq/L 08/03/2018 Comp Metabolic Zua104 AN ION GAP 14 08/03/2018 Comp Metabolic Npu079 GL UCOSE 152 mg/dL 08/03/2018 Comp Metabolic Qqr480 Cr eat 1.2 mg/dL 08/03/2018 Comp Metabolic Daw501 eG FR 61 ml/min/1.73m2 08/03 Comp Metabolic Cfe067 BUN 23 mg/dL 08/03/2018 Comp Metabolic Sfj467 B/ C Ratio 19.0 Ratio 08/03/2018 Comp Metabolic Vhe024 CA LCIUM 9.6 mg/dL 08/03/2018 Comp Metabolic Vip870 AL K PHOS 51 U/L 08/03/2018 Comp Metabolic Iyw004 T(SGOT) 20 U/L 08/03/2018 Comp Metabolic Jxn063 AL T(SGPT) 24 U/L 08/03/2018 Comp Metabolic Wnc438 BI LI T 0.5 mg/dL 08/03/2018 Comp Metabolic Abz023 AL BUMIN 4.3 g/dL 08/03/2018 Comp Metabolic Jsa700 TP RO 6.8 g/dL 08/03/2018 Comp Metabolic Ozy619 GL OB 2.6 g/dL 08/03/2018 Comp Metabolic Pli151 A/ G Ratio 1.7 Ratio 08/03/2018 Comp Metabolic Mui810 Os mo 277 mOsmo 08/03/2018 %Hba1C Mou493 % HbA1c 92814-5 7.3 % 08/03/2018 %Hba1C Blw561 Gluc Ave 163 mg/dL 08/03/2018 Cbc With [...] 31.2 pg 05/14/2018 Cbc With Differential Ord2 [place]% 12.2 % 05/14/2018 Cbc With Differential Ord2 [...] 1.81 K/ul 05/14/2018 Cbc With Differential Ord2 [place] ABS# 1.0 K/ul 05/14/2018 Cbc With Differential Ord2 Eos ABS# 0.1 K/ul 05/14/2018 Cbc With Differential Ord2 Baso ABS# 0.0 K/ul 05/14/2018 Ehrlichia Chaffeensis Antibody Igm [id number] EHRLICHIA CHAFFEENSIS IGM < 1:16 04/09/2018 Ehrlichia Chaffeensis Antibody Igg [id number] EHRLICHIA CHAFFEENSIS IGG 1:64 04/09/2018 Shaw[place] Spotted Fever Igg/Igm 50972 3 LOTUS MT SPOTTED FEVER IGM EIA . 04/09/2018 [place] Spotted Fever Igg/Igm 60741 3 RMSF, IGM 0.36 index 04/09/2018 [place] Spotted Fever Igg/Igm 41396 3 LOTUS MT SPOTTED FEVER IGG EIA FLEX . 04/09/2018 [place] Spotted Fever Igg/Igm 39450 3 RMSF, IGG SCREEN-FLEX Negative 04/09/2018 Lymes Disease Total Antibodies With Western Blot Refle x [id number] B. BURGDORFERI, IGG/IGM 0.31 04/07/2018 Lymes Disease Total Antibodies With Western Blot Refle x [id number] INTERPRETATION 04/07/2018 %Hba1C Aec846 % HbA1c 69584-5 7.2 % 03/31/2018 %Hba1C Sjr020 Gluc Ave 160 mg/dL 03/31/2018 Lipid Ord30 [...] 31.3 pg 12/22/2017 Cbc With Differential Ord2 [place]% 11.5 % 12/22/2017 Cbc With Differential Ord2 [...] 2.16 K/ul 12/22/2017 Cbc With Differential Ord2 [place] ABS# 1.1 K/ul 12/22/2017 Cbc With Differential Ord2 Eos ABS# 0.1 K/ul 12/22/2017 Cbc With Differential Ord2 Baso ABS# 0.0 K/ul 12/22/2017 Comp Metabolic Cfe962 NA 141 mEq/L 12/22/2017 Comp Metabolic Gib371 K 3.9 mEq/L 12/22/2017 Comp Metabolic Osf144 CL 99 mEq/L 12/22/2017 Comp Metabolic Rmk404 CO2 32.0 mEq/L 12/22/2017 Comp Metabolic Cao026 AN ION GAP 14 12/22/2017 Comp Metabolic Gjf005 GL UCOSE 152 mg/dL 12/22/2017 Comp Metabolic Zqf140 Cr eat 1.0 mg/dL 12/22/2017 Comp Metabolic Dqn443 eG FR 78 ml/min/1.73m2 12/22 Comp Metabolic Ejb050 BUN 27 mg/dL 12/22/2017 Comp Metabolic Zbp945 B/ C Ratio 27.8 Ratio 12/22/2017 Comp Metabolic Ugi125 CA LCIUM 9.7 mg/dL 12/22/2017 Comp Metabolic Iqz021 AL K PHOS 56 U/L 12/22/2017 Comp Metabolic Tmd514 T(SGOT) 18 U/L 12/22/2017 Comp Metabolic Lxz271 AL T(SGPT) 20 U/L 12/22/2017 Comp Metabolic Ero377 BI LI T 0.4 mg/dL 12/22/2017 Comp Metabolic Zwo706 AL BUMIN 4.2 g/dL 12/22/2017 Comp Metabolic Kol091 TP RO 6.4 g/dL 12/22/2017 Comp Metabolic Tml188 GL OB 2.2 g/dL 12/22/2017 Comp Metabolic Kbk302 A/ G Ratio 1.9 Ratio 12/22/2017 Comp Metabolic Wmd595 Os mo 289 mOsmo 12/22/2017 %Hba1C Psn886 % HbA1c 82497-1 7.1 % 12/22/2017 %Hba1C Qar806 Gluc Ave 157 mg/dL 12/22/2017 Cbc With [...] 31.5 pg 09/22/2017 Cbc With Differential Ord2 [place]% 8.4 % 09/22/2017 Cbc With Differential Ord2 [...] 1.83 K/ul 09/22/2017 Cbc With Differential Ord2 [place] ABS# 0.9 K/ul 09/22/2017 Cbc With Differential Ord2 Eos ABS# 0.0 K/ul 09/22/2017 Cbc With Differential Ord2 Baso ABS# 0.0 K/ul 09/22/2017 %Hba1C Bzc816 % HbA1c 45444-1 6.9 % 09/22/2017 %Hba1C Yib986 Gluc Ave 151 mg/dL 09/22/2017 Tsh Ord6 [...] 31.6 pg 06/17/2017 Cbc With Differential Ord2 [place]% 11.1 % 06/17/2017 Cbc With Differential Ord2 [...] 2.35 K/ul 06/17/2017 Cbc With Differential Ord2 [place] ABS# 1.2 K/ul 06/17/2017 Cbc With Differential Ord2 Eos ABS# 0.1 K/ul 06/17/2017 Cbc With Differential Ord2 Baso ABS# 0.0 K/ul 06/17/2017 %Hba1C Lnh939 % HbA1c 18735-0 7.3 % 06/17/2017 %Hba1C Bls164 Gluc Ave 163 mg/dL 06/17/2017 Comp Metabolic Pim781 NA 137 mEq/L 06/17/2017 Comp Metabolic Xrz353 K 3.8 mEq/L 06/17/2017 Comp Metabolic Uko939 CL 98 mEq/L 06/17/2017 Comp Metabolic Zdo067 CO2 30.0 mEq/L 06/17/2017 Comp Metabolic Qbh801 AN ION GAP 13 06/17/2017 Comp Metabolic Rsg278 GL UCOSE 157 mg/dL 06/17/2017 Comp Metabolic Twp375 Cr eat 1.0 mg/dL 06/17/2017 Comp Metabolic Pss796 eG FR 76 ml/min/1.73m2 06/17 Comp Metabolic Sxx095 BUN 18 mg/dL 06/17/2017 Comp Metabolic Ilw759 B/ C Ratio 18.0 Ratio 06/17/2017 Comp Metabolic Rvx701 CA LCIUM 9.8 mg/dL 06/17/2017 Comp Metabolic Tsc472 AL K PHOS 57 U/L 06/17/2017 Comp Metabolic Gnm125 T(SGOT) 19 U/L 06/17/2017 Comp Metabolic Fvy049 AL T(SGPT) 23 U/L 06/17/2017 Comp Metabolic Ppt139 BI LI T 0.6 mg/dL 06/17/2017 Comp Metabolic Zhh506 AL BUMIN 4.4 g/dL 06/17/2017 Comp Metabolic Dne315 TP RO 6.8 g/dL 06/17/2017 Comp Metabolic Nbp292 GL OB 2.4 g/dL 06/17/2017 Comp Metabolic Ytr310 A/ G Ratio 1.9 Ratio 06/17/2017 Comp Metabolic Tzu766 Os mo 279 mOsmo 06/17/2017 Review of [...] skin Location: scalp 10/08/2017 [place] - right scientologist, mid fo rehead/scalp, left posterior neck - [...] skin Location: scalp 08/27/2017 [place] - right scientologist, mid fo rehead/scalp - cryotherapy to area, [...] CPT-4: J3301 10/15/2018 THER/PROPH/DIAG INJ SC/IM CPT-4: 51209 10/15/2018 ADMIN INFLUENZA VIRU S VAC CPT-4: G0008 06/24/2018 FLU VACC PRSV FREE I NC ANTIG CPT-4: 76273 06/24/2018 GLUC MONITOR CONT PH YS I&R CPT-4: 15522 01/27/2018 PPPS, SUBSEQ VISIT CPT- 4: G0439 01/21/2018 GLUCOSE MONITORING CONT CPT-4: 00963 01/06/2018 ADMIN INFLUENZA VIRU S VAC CPT-4: G0008 06/09/2017 FLU VACC PRSV FREE I NC ANTIG CPT-4: 99827 06/09/2017 Vital Signs Date Vital 01/25/2019 Blood Pressure 1: 140/74 Code: 8480-6 BMI: 32.8 Code: 57299-4 Heart Rate 1: 60 bpm Height: 5'8" SpO2: 96% Weight: 216 lbs 11/16/2018 Blood Pressure 1: 154/90 Code: 8480-6 BMI: 33.1 Code: 78558-7 Heart Rate 1: 84 bpm Height: 5'8" SpO2: 96% Weight: 218 lbs 10/15/2018 Blood Pressure 1: 140/70 Code: 8480-6 BMI: 33.5 Code: 02825-5 Heart Rate 1: 72 bpm Height: 5'8" SpO2: 98% Weight: 220 lbs 08/05/2018 Blood Pressure 1: 132/56 Code: 8480-6 BMI: 34.5 Code: 81003-6 Heart Rate 1: 65 bpm Height: 5'8" SpO2: 95% Weight: 227 lbs 06/22/2018 Blood Pressure 1: 144/86 Code: 8480-6 BMI: 36.0 Code: 57909-8 Heart Rate 1: 74 bpm Height: 5'8" SpO2: 98% Weight: 237 lbs 05/14/2018 Blood Pressure 1: 132/72 Code: 8480-6 Height: Weight: 04/27/2018 Blood Pressure 1: 148/78 Code: 8480-6 BMI: 35.6 Code: 33325-9 Heart Rate 1: 77 bpm Height: 5'8" SpO2: 97% Weight: 234 lbs 04/03/2018 Blood Pressure 1: 156/80 Code: 8480-6 BMI: 35.4 Code: 38743-6 Heart Rate 1: 70 bpm Height: 5'8" SpO2: 97% Weight: 233 lbs 01/27/2018 BMI: 35.6 Code: 27083-3 Heart Rate 1: 86 bpm Height: 5'8" SpO2: 98% Weight: 234 lbs 01/21/2018 Heigh t: Weight: 01/06/2018 Heigh t: Weight: 12/31/2017 Blood Pressure 1: 140/86 Code: 8480-6 BMI: 34.2 Code: 53152-3 Heart Rate 1: 80 bpm Height: 5'8" SpO2: 98% Weight: 225 lbs 10/08/2017 Blood Pressure 1: 152/74 Code: 8480-6 BMI: 34.2 Code: 19882-6 Heart Rate 1: 67 bpm Height: 5'8" SpO2: 98% Weight: 225 lbs 08/27/2017 Blood Pressure 1: 144/82 Code: 8480-6 BMI: 34.2 Code: 33642-6 Heart Rate 1: 70 bpm Height: 5'8" SpO2: 98% Weight: 225 lbs 06/10/2017 Blood Pressure 1: 150/84 Code: 8480-6 BMI: 35.0 Code: 98504-1 Heart Rate 1: 67 bpm Height: 5'8" SpO2: 98% Weight: 230 lbs 05/20/2017 Blood Pressure 1: 146/76 Code: 8480-6 BMI: 35.3 Code: 16360-6 Heart Rate 1: 70 bpm Height: 5'8" [...] arthropods, initial encounter[ICD10: W57.XXXA] Laney Guerrero MD, [facility] CPT-4: 84128 01/25/2019 03076 EST. PATIENT, LEVEL III Diagnosis: Type 2 diabetes mellitus with hyperglycemia[ICD10: E11.65] Diagnosis: Essential (primary) hypertension[ICD10: I10] Laney Guerrero MD, [facility] CPT-4: 75954 11/16/2018 41924 EST. PATIENT, LEVEL IV Diagnosis: Other acute sinusitis[ICD10: J01.80] Diagnosis: Other allergic rhinitis[ICD10: J30.89] Laney Guerrero MD, [facility] CPT-4: 34209 10/15/2018 82513 EST. PATIENT, LEVEL III Diagnosis: Type 2 diabetes mellitus with hyperglycemia[ICD10: E11.65] Laney Guerrero MD, [facility] CPT-4: 10880 08/05/2018 [id number] EST. PATIENT, LEVEL III Diagnosis: Type 2 diabetes mellitus with hyperglycemia[ICD10: E11.65] Laney Guerrero MD, [facility] CPT-4: 50041 06/22/2018 77207 EST. PATIENT, LEVEL IV Diagnosis: Diplopia[ICD10: H53.2] Diagnosis: Other specified anemias[ICD10: D64.89] Laney Guerrero MD, [facility] CPT-4: 67735 05/14/2018 68001 EST. PATIENT, LEVEL III Diagnosis: Benign paroxysmal vertigo, bilateral[ICD10: H81.13] Diagnosis: Other allergic rhinitis[ICD10: J30.89] Laney Guerrero MD, [facility] CPT-4: 18846 04/27/2018 07644 EST. PATIENT, LEVEL III Diagnosis: Type 2 diabetes mellitus with hyperglycemia[ICD10: E11.65] Diagnosis: Other fatigue[ICD10: R53.83] Diagnosis: Other malaise[ICD10: R53.81] Diagnosis: Bitten or stung by nonvenomous insect and other nonvenomous arthropods, initial encounter[ICD10: W57.XXXA] Diagnosis: Cellulitis of right upper limb[ICD10: L03.113] Diagnosis: Mixed hyperlipidemia[ICD10: E78.2] Laney Guerrero MD, [facility] CPT-4: 69136 04/03/2018 ([id number]) 03529 EST. P ATIENT, LEVEL III Diagnosis: Type 2 diabetes mellitus with hyperglycemia[ICD10: E11.65] Laney Guerrero MD, [facility] CPT-4: 91267 01/27/2018 ([id number]) Miscellaneou s no charge Diagnosis: Type 2 diabetes mellitus with hyperglycemia[ICD10: E11.65] Laney Guerrero MD, [facility] CPT-4: 65650 01/13/2018 63253 EST. PATIENT, LEVEL III Diagnosis: Type 2 diabetes mellitus with hyperglycemia[ICD10: E11.65] Diagnosis: Essential (primary) hypertension[ICD10: I10] Diagnosis: Mixed hyperlipidemia[ICD10: E78.2] Laney Guerrero MD, [facility] CPT-4: 08407 12/31/2017 93140 EST. PATIENT, LEVEL III Diagnosis: Type 2 diabetes mellitus with hyperglycemia[ICD10: E11.65] Diagnosis: Essential (primary) hypertension[ICD10: I10] Diagnosis: Mixed hyperlipidemia[ICD10: E78.2] Diagnosis: Actinic keratosis[ICD10: L57.0] Laney Guerrero MD, [facility] CPT-4: 79468 10/08/2017 93076 EST. PATIENT, LEVEL III Diagnosis: Type 2 diabetes mellitus with hyperglycemia[ICD10: E11.65] Diagnosis: Essential (primary) hypertension[ICD10: I10] Diagnosis: Mixed hyperlipidemia[ICD10: E78.2] Diagnosis: Actinic keratosis[ICD10: L57.0] Laney Guerrero MD, [facility] CPT-4: 89644 08/27/2017 50279 EST. PATIENT, LEVEL III Diagnosis: Type 2 diabetes mellitus with hyperglycemia[ICD10: E11.65] Diagnosis: Essential (primary) hypertension[ICD10: I10] Diagnosis: Mixed hyperlipidemia[ICD10: E78.2] Laney Guerrero MD, [facility] CPT-4: 37290 06/25/2017 ([id number]) 86175 EST. 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 01/25/2019 Appointment: Laney Luther WPtel: [address] [place], [place] [address] (15 min) Moderate 01/25/2019 Patient Education: Patient [...] control. 11/16/2018 Appointment: Karo Guerrero WPtel: [phone] [facility] (15 min) Moderate 11/16/2018 Appointment: Laney Luther WPtel: [facility] (30 min) Complex 11/16/2018 Patient Education: Patient Medication Summary Completed 11/16/2018 Patient Education: Diabetes Completed 11/16/2018 Appointment: Laney Luther WPtel: [phone] [facility] (15 min) Moderate 11/02/2018 Patient Education: [...] allergy spray. 10/15/2018 [facility]ment[phone] ([facility] min) Complex 10/15/2018 Patient Education: Patient [...] glucose control. 08/05/2018 Appointment: Laney Luther WPtel: [phone] [facility] (15 min) Moderate 08/05/2018 Patient Education: Patient Medication Summary Completed 08/05/2018 Appointment: Laney Luther WPtel: [phone] [facility] (15 min) Moderate 07/17/2018 Referral: Kevin Cuevas [...] glucose control. 06/22/2018 Appointment: Laney Luther WPtel: [phone] [facility] (15 min) Moderate 06/22/2018 Patient Education: Patient Medication Summary Completed 06/22/2018 Patient Education: Diabetes Completed 06/22/2018 Care Plan: Referral Order SNOMED-CT : [id number] Pending 06/22/2018 Referral: Alex Christian Mueller [facility] Referral Initiated 06/02/2018 Appointment: Nurse [...] or concerns. 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 04/03/2018 Appointment: Laney Luther [facility]Ptel[phone] [facility] (15 min) Moderate 04/03/2018 Patient Education: Patient Medication Summary Completed 04/03/2018 Appointment: Laney Luther [facility]el[id number] (30 min) Complex 03/31/2018 Patient Education: [...] control. 01/27/2018 Appointment: Laney Luther [facility]Ptel[id number] (30 min) Complex 01/27/2018 Patient Education: [...] Completed 01/21/2018 Appointment: Laney Luther WPtel[id number] (15 min) Moderate 01/13/2018 Patient Education: [...] glucose control. 01/06/2018 Appointment: Laney Luther WPtel[id number] (15 min) Moderate 01/06/2018 Patient Education: [...] to medications. 12/31/2017 App[facility]ment: Laney Luther [facility]Ptel[id number] (30 min) Complex 12/31/2017 Patient Education: [...] acute concerns. 10/08/2017 App[facility]ment[facility] Luther[id number] (30 min) Complex 10/08/2017 Patient Education: Patient Medication Summary Completed 10/08/2017 App[facility]ment: [phone] (15 min) Moderate 10/07/2017 Visit Plan: [...] acute concerns. 08/27/2017 Appointment: Laney Luther WPtel: [facility] (30 min) Complex 08/27/2017 Patient Education: [...] to medications. 06/25/2017 Appointment: Laney Luther WPtel: [phone] [id number] (30 min) Complex 06/25/2017 Patient Education: Patient Medication Summary Completed 06/25/2017 Appointment: Debra Ramirez WPtel: [phone] [phone] (30 min) Complex 06/24/2017 Visit Plan: [...] to medications. 06/10/2017 Appointment: Debra Ramirez WPtel: [phone] [phone] (30 min) Complex 06/10/2017 Patient Education: Patient [...] glucose control. 05/20/2017 Appointment: Laney Luther WPtel: [address] [place], [place] [id number] New Patient 05/20/2017 Patient Education: Patient Medication Summary Completed 05/20/2017 [facility]: [facility] Referral Initiated Referral: Kevin Cuevas Referral Initiated Instructions Comment Stop atorvastatin - will check your cholesterol [...] allow for greater blood glucose control. . tick bite - The milana serna was instructed in appropriate wound care. The patient was instructed to use the antibiotic ointment as per RX. The patient is to call for any change in symptoms, increase in size of the lesion, increase in pain, worsening redness, warmth, discharge. . Diabetes Mellitus - The patient has [...] pustular drainage, or any other acute concerns. Check fasting lipid with next set of [...] DOPA paperwork for health care surrogate. . Continuous glucose monitor placed - pt [...] greater blood glucose control. . Hypertension - patient has been counseled to cut back [...] blood glucose control. GET RECENT LABS FROM [facility] FASTING LABS NEXT WEEK UNLESS [...]
--- OUTSIDE RECORDS SUMMARY | 2020-02-09 07:06 | XMS REPORT | CCD ---
Author Author Gunnar Luther Organization Karo Guerrero MD, [facility] Address [address] [place] [address] Phone Care Team Providers Care Appraiser Land Name Role Phone PP Unavailable CCM Unavailable Summary Purpose Interface Exchange Insurance Providers Payer name Policy type / Coverage type Covered democrat ID Effective Begin Date Effective End Date WPS Medicare Part B Medicare Part B [id number] Unknown Aetna Medicare Part B AH [id number] Unknown Cigna Medicare Part B 80 [id number] Unknown Family history Sister Diagnosis Age At [...] ed reddy 05/20/[address]: 707204254 Never smoker 05/20/[address]: 942160405 Never drinks alcohol 05/20/2017 Allergies, Adverse Reactions, [...] ICD-9: 386.11 ICD-10: H81.13 Active 04/27/2018 Unknown Bitten or stung by n onvenomous insect and other nonvenomous arthropods, initial encounter ICD-9: 919.4 ICD-10: W57.XXXA Active 04/03/2018 Unknown Cellulitis of right upper limb ICD-9: [...] bilateral ICD-9: 386.11 ICD-10: H81.13 04/27/2018 Active Bitten or stung by n onvenomous insect and other nonvenomous arthropods, initial encounter ICD-9: 919.4 ICD-10: W57.XXXA 04/03/2018 Active Cellulitis of right upper limb ICD-9: [...] Date Stop Date Sta tus Fill Instructions glimepiride 2 mg tablet RxNorm: 841698 TAKE 1 TABLET BY MOUTH TWICE DAILY FOR D IABETES 01/07/2019 01/01/2020 Active diltiazem CD 360 mg capsule,extended release 24 hr RxNorm: 313488 1 CAPSULE(S) PO QHS 12/29/2018 12/23/2019 Ac tive atenolol 50 mg-chlor thalidone 25 mg tablet RxNorm: 504920 1 TABLET(S) PO DAILY 12/17/2018 12/11/2019 Ac tive PLEASE SEND REFILL REQUESTS ELECTRONICAL LY metformin ER 750 mg tablet,extended release 24 hr RxNorm: 054326 2 TABLET(S) PO DAILY 12/17/2018 06/14/2019 Ac tive metformin ER 750 mg tablet,extended release 24 hr RxNorm: 532978 2 TABLET(S) PO DAILY 11/13/2018 12/16/2018 Inactive Tradjenta 5 mg tablet RxNorm: 8319298 TAKE 1 TABLET BY MOUTH DAILY 10/16/2018 03/14/2019 Ac tive Kenalog 40 mg/mL benitez pension for injection RxNorm: 2517963 1 Milliliter(s) Inj 10/15/2018 10/15/2018 In active Tradjenta 5 mg tablet RxNorm: 6418504 TAKE 1 TABLET BY MOUTH DAILY 09/18/2018 02/14/2019 Ac tive metformin ER 750 mg tablet,extended release 24 hr RxNorm: 675906 2 TABLET(S) PO DAILY 07/13/2018 11/09/2018 Inactive Tradjenta 5 mg tablet RxNorm: 5223018 TAKE 1 TABLET BY MOUTH DAILY 07/02/2018 09/17/2018 In active One Touch Test strips RxNorm: 1 Miscellaneous BID 06/29/2018 07/28/2018 Inactive Zyrtec 10 mg tablet RxNorm: 4667299 1 Tablet(s) PO daily 04/27/2018 05/26/2018 Inactive doxycycline hyclate 100 mg capsule RxNorm: 4325674 1 Capsule(s) PO BID 04/03/2018 04/12/2018 In active meclizine 25 mg tablet RxNorm: 619021 1 Tablet(s) PO TID as needed Dizziness 04/03/2018 04/07/2018 In active metformin ER 750 mg tablet,extended release 24 hr RxNorm: 526615 2 TABLET(S) PO DAILY 02/03/2018 06/02/2018 Inactive glimepiride 2 mg tablet RxNorm: 217912 TAKE 1 TABLET BY MOUTH TWICE DAILY FOR D BETES 01/13/2018 04/07/2019 Active glimepiride 2 mg tablet RxNorm: 508204 TAKE 1 TABLET BY MOUTH TWICE DAILY FOR D IABETES 01/11/2018 01/05/2019 Inactive diltiazem CD 360 mg capsule,extended release 24 hr RxNorm: 292785 1 CAPSULE(S) PO Q 01/02/2018 12/27/2018 Inactive atenolol 50 mg-chlor thalidone 25 mg tablet RxNorm: 880029 1 Tablet(s) PO daily 12/18/2017 12/12/2018 In active PLEASE SEND REFILL REQUESTS ELECTRONICAL LY Tradjenta 5 mg tablet RxNorm: 3749336 TAKE 1 TABLET BY MOUTH DAILY 12/15/2017 05/13/2018 In active metformin ER 750 mg tablet,extended release 24 hr RxNorm: 021525 2 TABLET(S) PO DAILY 11/05/2017 12/16/2018 Inactive metformin ER 750 mg tablet,extended release 24 hr RxNorm: 534551 2 TABLET(S) PO DAILY 11/03/2017 02/02/2018 Inactive atorvastatin 20 mg t ablet RxNorm: 082291 TAKE 1 TABLET BY MOUT H EVERY NIGHT AT BEDTIME FOR CHOLESTEROL 08/28/2017 08/22/2018 Inactive Zithromax Z-Maury 250 mg tablet RxNorm: 569350 1 Tablet(s) PO UD 08/15/2017 04/13/2018 Inactive Tamiflu 75 mg capsule RxNorm: 367748 1 Capsule(s) PO BID 08/15/2017 08/14/2017 Inactive Tamiflu 75 mg capsule RxNorm: 291230 1 Capsule(s) PO BID 08/15/2017 08/19/2017 Inactive Tradjenta 5 mg tablet RxNorm: 9274486 TAKE 1 TABLET BY MOUTH DAILY 08/12/2017 12/09/2017 In active metformin ER 750 mg tablet,extended release 24 hr RxNorm: 443612 TAKE 2 TABLET BY MOUT H ONCE A DAY DIRECTED 08/08/2017 12/16/2018 Inactive SAVINGS FOR NON-COVERED MED ICATIONS Claims: BIN: [id number], PCN: [id number], GROUP: [id number], Patient ID: [id number] Phone; Questions: Your[facility] [phone] metformin ER 750 mg tablet,extended release 24 hr RxNorm: 569498 2 Tablet(s) PO daily 08/07/2017 08/06/2017 Inactive metformin ER 750 mg tablet,extended release 24 hr RxNorm: 259000 2 Tablet(s) PO daily 08/07/2017 11/02/2017 Inactive glimepiride 2 mg tablet RxNorm: 673582 TAKE 1 TABLET BY MOUTH TWICE DAILY FOR D IABETES 07/18/2017 01/10/2018 Inactive diltiazem CD 360 mg capsule,extended release 24 hr RxNorm: 923208 1 Capsule(s) PO QHS 07/03/2017 12/29/2017 Inactive One Touch Test strips RxNorm: 1 Miscellaneous daily 05/30/2017 06/28/2017 Inactive One Touch Test strips RxNorm: 1 Miscellaneous daily 05/30/2017 05/29/2017 Inactive iron gluconate-B cmp lx-potassium iodide-minerals oral RxNorm: 93234 oral No Start Date Active Super B Complex 100 tablet RxNorm: 1 Tablet(s) PO daily No Start Date Active Glucosamine Chondroi tin Maximum Strength oral RxNorm: 4845 oral No Start Date Active garlic 1,000 mg capsule RxNorm: 137388 1 Capsule(s) PO BID No Start Date Active vitamin E (dl, aceta te) 400 unit capsule RxNorm: 015891 1 Capsule(s) PO daily No Start Date Active beta carotene 25,000 unit tablet RxNorm: 914275 1 Tablet(s) PO daily No Start Date Active rutin 500 mg tablet RxNorm: 694453 1/2 Tablet(s) PO daily No Start Date Active Calcium 600 + Min[place] ls oral RxNorm: 297203 oral No S tart Date Active Vitamin D3 1,000 uni t tablet RxNorm: 358650 1 Tablet(s) PO daily No Start Date Active Vitamin C 500 mg tablet RxNorm: 016825 1 Tablet(s) PO daily No Start Date Active acidophilus 25 susanne on cell-pectin, citrus 100 mg tablet RxNorm: 584903 1 Tablet(s) PO BID No Start Date Active Zinc and C oral RxNorm: oral No Start Date Active aspirin 81 mg chewab le tablet RxNorm: 151037 1 Tablet(s) PO QPM No Start Date Active Zegerid OTC 20 mg-1. 1 gram capsule RxNorm: 222064 1 Capsule(s) PO daily No Start Date Active magnesium 250 mg tablet RxNorm: 1 Tablet(s) PO daily No Start Date Active flaxseed oil 1,000 m g capsule RxNorm: 290231 1 Capsule(s) PO BID No Start Date Active milk thistle 175 mg tablet RxNorm: 540616 1 Tablet(s) PO daily No Start Date Active metformin ER 750 mg tablet,extended release 24 hr RxNorm: 504826 2 Tablet(s) PO daily No Start Date 08/06/2017 Inactive atorvastatin 20 mg t ablet RxNorm: 940303 1 Tablet(s) PO daily No Start Date 08/27/2017 Inactive Tradjenta 5 mg tablet RxNorm: 0469575 1 Tablet(s) PO daily No Start Date 08/11/2017 Inactive diltiazem ER 300 mg tablet,extended release 24 hr RxNorm: 387003 1 Tablet(s) PO daily No Start Date 05/18/2017 Inactive glimepiride 2 mg tablet RxNorm: 453110 1 Tablet(s) PO BID No Start Date 07/17/2017 Inactive Zithromax Z-Maury 250 mg tablet RxNorm: 057460 1 Tablet(s) PO UD No Start Date 08/14/2017 Inactive atenolol 50 mg-chlor thalidone 25 mg tablet RxNorm: 383846 1 Tablet(s) PO daily No Start Date 12/17/2017 Inactive diltiazem CD 360 mg capsule,extended release 24 hr RxNorm: 219637 1 Capsule(s) PO QHS No Start Date 07/02/2017 Inactive Medication Administered Medication Codes Instruc tions Start Date Status Kenalog 40 mg/mL suspension for injection RxNorm: 0288038 1Milliliter 10/15/2018 N o longer Active Immunizations Vaccine Codes Date Status Influenza CVX: 141 06/24 completed Influenza CVX: 141 06/09 completed Assessments Condition Codes Effectiv e Dates Type 2 diabetes mellitus with hyperglycemia ICD-10: [...] Other malaise ICD-10: R53.81 ICD-9: 780.79 04/03/2018 Bitten or stung by nonvenomous insect an d other nonvenomous arthropods, initial encounter ICD-10: W57.XXXA ICD-9: 919.4 04/03/2018 Cellulitis of right upper limb ICD-1 0: L03.113 ICD-9: 682.3 04/03/2018 Encounter for general adult medical exam ination with abnormal findings ICD-10: Z00.01 ICD-9: V70.0 01/21/2018 Actinic keratosis ICD-10: L57.0 ICD-9: 702.0 10/08/2017 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 ICD-9: 280.0 06/10/2017 Reason For Visit Reason For Visit Effective Dates Notes diabetes mellitus 11/16/2018 sinus congestion 10/15/2018 diabetes [...] Item Item Code Result Date Comp Metabolic Icp724 NA 137 mEq/L 11/09/2018 Comp Metabolic Wuf702 K 4.4 mEq/L 11/09/2018 Comp Metabolic Jzn293 CL 97 mEq/L 11/09/2018 Comp Metabolic Mub506 CO2 30.0 mEq/L 11/09/2018 Comp Metabolic Wos397 AN ION GAP 14 11/09/2018 Comp Metabolic Beq109 GL UCOSE 122 mg/dL 11/09/2018 Comp Metabolic Vml877 Cr eat 1.1 mg/dL 11/09/2018 Comp Metabolic Srx326 eG FR 70 ml/min/1.73m2 11/09 Comp Metabolic Nxv249 BUN 21 mg/dL 11/09/2018 Comp Metabolic Fbi148 B/ C Ratio 19.6 Ratio 11/09/2018 Comp Metabolic Lvt173 CA LCIUM 10.2 mg/dL 11/09/2018 Comp Metabolic Amy342 AL K PHOS 45 U/L 11/09/2018 Comp Metabolic Vnj061 T(SGOT) 19 U/L 11/09/2018 Comp Metabolic Tcr121 AL T(SGPT) 24 U/L 11/09/2018 Comp Metabolic Pqe209 BI LI T 0.5 mg/dL 11/09/2018 Comp Metabolic Eki671 AL BUMIN 4.4 g/dL 11/09/2018 Comp Metabolic Ify611 TP RO 6.7 g/dL 11/09/2018 Comp Metabolic Nil865 GL OB 2.3 g/dL 11/09/2018 Comp Metabolic Eph469 A/ G Ratio 1.9 Ratio 11/09/2018 Comp Metabolic Yrk174 Os mo 278 mOsmo 11/09/2018 Cbc With [...] 32.0 pg 11/09/2018 Cbc With Differential Ord2 Wilcox% 9.8 % 11/09/2018 Cbc With Differential Ord2 [...] 2.13 K/ul 11/09/2018 Cbc With Differential Ord2 Wilcox ABS# 0.8 K/ul 11/09/2018 Cbc With Differential Ord2 Eos ABS# 0.1 K/ul 11/09/2018 Cbc With Differential Ord2 Baso ABS# 0.0 K/ul 11/09/2018 %Hba1C Qef204 % HbA1c 96110-2 6.7 % 11/09/2018 %Hba1C Nrp590 Gluc Ave 146 mg/dL 11/09/2018 Tsh Ord6 [...] 31.4 pg 08/03/2018 Cbc With Differential Ord2 Wilcox% 11.9 % 08/03/2018 Cbc With Differential Ord2 [...] 1.62 K/ul 08/03/2018 Cbc With Differential Ord2 Wilcox ABS# 0.9 K/ul 08/03/2018 Cbc With Differential Ord2 Eos ABS# 0.1 K/ul 08/03/2018 Cbc With Differential Ord2 Baso ABS# 0.0 K/ul 08/03/2018 Comp Metabolic Pvt861 NA 135 mEq/L 08/03/2018 Comp Metabolic Wyl788 K 3.5 mEq/L 08/03/2018 Comp Metabolic Mjt159 CL 95 mEq/L 08/03/2018 Comp Metabolic Emb356 CO2 30.0 mEq/L 08/03/2018 Comp Metabolic Thk504 AN ION GAP 14 08/03/2018 Comp Metabolic Lst703 GL UCOSE 152 mg/dL 08/03/2018 Comp Metabolic Krb727 Cr eat 1.2 mg/dL 08/03/2018 Comp Metabolic Mwd653 eG FR 61 ml/min/1.73m2 08/03 Comp Metabolic Vsq101 BUN 23 mg/dL 08/03/2018 Comp Metabolic Jdh447 B/ C Ratio 19.0 Ratio 08/03/2018 Comp Metabolic Vtn416 CA LCIUM 9.6 mg/dL 08/03/2018 Comp Metabolic Aju901 AL K PHOS 51 U/L 08/03/2018 Comp Metabolic Lex644 T(SGOT) 20 U/L 08/03/2018 Comp Metabolic Tjn207 AL T(SGPT) 24 U/L 08/03/2018 Comp Metabolic Wsf569 BI LI T 0.5 mg/dL 08/03/2018 Comp Metabolic Iuo407 AL BUMIN 4.3 g/dL 08/03/2018 Comp Metabolic Cri889 TP RO 6.8 g/dL 08/03/2018 Comp Metabolic Lsn747 GL OB 2.6 g/dL 08/03/2018 Comp Metabolic Hjc766 A/ G Ratio 1.7 Ratio 08/03/2018 Comp Metabolic Gyf952 Os mo 277 mOsmo 08/03/2018 %Hba1C Kys037 % HbA1c 43424-8 7.3 % 08/03/2018 %Hba1C Xgw522 Gluc Ave 163 mg/dL 08/03/2018 Cbc With [...] 31.2 pg 05/14/2018 Cbc With Differential Ord2 Wilcox% 12.2 % 05/14/2018 Cbc With Differential Ord2 [...] 1.81 K/ul 05/14/2018 Cbc With Differential Ord2 Wilcox ABS# 1.0 K/ul 05/14/2018 Cbc With Differential Ord2 Eos ABS# 0.1 K/ul 05/14/2018 Cbc With Differential Ord2 Baso ABS# 0.0 K/ul 05/14/2018 Ehrlichia Chaffeensis Antibody Igm [id number] EHRLICHIA CHAFFEENSIS IGM < 1:16 04/09/2018 Ehrlichia Chaffeensis Antibody Igg 067453 EHRLICHIA CHAFFEENSIS IGG 1:64 04/09/2018 [place] Spotted Fever Igg/Igm 42722 3 LOTUS MT SPOTTED FEVER IGM EIA . 04/09/2018 [place] Spotted Fever Igg/Igm 85427 3 RMSF, IGM 0.36 index 04/09/2018 [place] Spotted Fever Igg/Igm 72889 3 LOTUS MT SPOTTED FEVER IGG EIA FLEX . 04/09/2018 [place] Spotted Fever Igg/Igm 59280 3 RMSF, IGG SCREEN-FLEX Negative 04/09/2018 Lymes Disease Total Antibodies With Western Blot Refle x 409857 B. BURGDORFERI, IGG/IGM 0.31 04/07/2018 Lymes Disease Total Antibodies With Western Blot Refle x [id number] INTERPRETATION 04/07/2018 %Hba1C Dhc304 % HbA1c 88540-4 7.2 % 03/31/2018 %Hba1C Ulq603 Gluc Ave 160 mg/dL 03/31/2018 Lipid Ord30 [...] 31.3 pg 12/22/2017 Cbc With Differential Ord2 Wilcox% 11.5 % 12/22/2017 Cbc With Differential Ord2 [...] 2.16 K/ul 12/22/2017 Cbc With Differential Ord2 Wilcox ABS# 1.1 K/ul 12/22/2017 Cbc With Differential Ord2 Eos ABS# 0.1 K/ul 12/22/2017 Cbc With Differential Ord2 Baso ABS# 0.0 K/ul 12/22/2017 Comp Metabolic Tyw681 NA 141 mEq/L 12/22/2017 Comp Metabolic Zdl620 K 3.9 mEq/L 12/22/2017 Comp Metabolic Cgt680 CL 99 mEq/L 12/22/2017 Comp Metabolic Vbf800 CO2 32.0 mEq/L 12/22/2017 Comp Metabolic Afx813 AN ION GAP 14 12/22/2017 Comp Metabolic Zts475 GL UCOSE 152 mg/dL 12/22/2017 Comp Metabolic Xwt187 Cr eat 1.0 mg/dL 12/22/2017 Comp Metabolic Ttd989 eG FR 78 ml/min/1.73m2 12/22 Comp Metabolic Wkz531 BUN 27 mg/dL 12/22/2017 Comp Metabolic Zav622 B/ C Ratio 27.8 Ratio 12/22/2017 Comp Metabolic Bex804 CA LCIUM 9.7 mg/dL 12/22/2017 Comp Metabolic Bvm103 AL K PHOS 56 U/L 12/22/2017 Comp Metabolic Dtr241 T(SGOT) 18 U/L 12/22/2017 Comp Metabolic Gnt619 AL T(SGPT) 20 U/L 12/22/2017 Comp Metabolic Lmf206 BI LI T 0.4 mg/dL 12/22/2017 Comp Metabolic Fem130 AL BUMIN 4.2 g/dL 12/22/2017 Comp Metabolic Jcr997 TP RO 6.4 g/dL 12/22/2017 Comp Metabolic Dsv318 GL OB 2.2 g/dL 12/22/2017 Comp Metabolic Chu366 A/ G Ratio 1.9 Ratio 12/22/2017 Comp Metabolic Qwq375 Os mo 289 mOsmo 12/22/2017 %Hba1C Idc203 % HbA1c 00371-7 7.1 % 12/22/2017 %Hba1C Ztk103 Gluc Ave 157 mg/dL 12/22/2017 Cbc With [...] 31.5 pg 09/22/2017 Cbc With Differential Ord2 Wilcox% 8.4 % 09/22/2017 Cbc With Differential Ord2 [...] 1.83 K/ul 09/22/2017 Cbc With Differential Ord2 Wilcox ABS# 0.9 K/ul 09/22/2017 Cbc With Differential Ord2 Eos ABS# 0.0 K/ul 09/22/2017 Cbc With Differential Ord2 Baso ABS# 0.0 K/ul 09/22/2017 %Hba1C Tkn368 % HbA1c 58180-8 6.9 % 09/22/2017 %Hba1C Ywm113 Gluc Ave 151 mg/dL 09/22/2017 Tsh Ord6 [...] 31.6 pg 06/17/2017 Cbc With Differential Ord2 Wilcox% 11.1 % 06/17/2017 Cbc With Differential Ord2 [...] 2.35 K/ul 06/17/2017 Cbc With Differential Ord2 Wilcox ABS# 1.2 K/ul 06/17/2017 Cbc With Differential Ord2 Eos ABS# 0.1 K/ul 06/17/2017 Cbc With Differential Ord2 Baso ABS# 0.0 K/ul 06/17/2017 %Hba1C Dib588 % HbA1c 10949-3 7.3 % 06/17/2017 %Hba1C Ohi054 Gluc Ave 163 mg/dL 06/17/2017 Comp Metabolic Vvx737 NA 137 mEq/L 06/17/2017 Comp Metabolic Iwd982 K 3.8 mEq/L 06/17/2017 Comp Metabolic Kvr857 CL 98 mEq/L 06/17/2017 Comp Metabolic Qxy450 CO2 30.0 mEq/L 06/17/2017 Comp Metabolic Tgf429 AN ION GAP 13 06/17/2017 Comp Metabolic Awn604 GL UCOSE 157 mg/dL 06/17/2017 Comp Metabolic Ssy146 Cr eat 1.0 mg/dL 06/17/2017 Comp Metabolic Xeu362 eG FR 76 ml/min/1.73m2 06/17 Comp Metabolic Acu941 BUN 18 mg/dL 06/17/2017 Comp Metabolic Hki203 B/ C Ratio 18.0 Ratio 06/17/2017 Comp Metabolic Hyk135 CA LCIUM 9.8 mg/dL 06/17/2017 Comp Metabolic Uli215 AL K PHOS 57 U/L 06/17/2017 Comp Metabolic Glf028 T(SGOT) 19 U/L 06/17/2017 Comp Metabolic Qzn592 AL T(SGPT) 23 U/L 06/17/2017 Comp Metabolic Itn605 BI LI T 0.6 mg/dL 06/17/2017 Comp Metabolic Kzw896 AL BUMIN 4.4 g/dL 06/17/2017 Comp Metabolic Vzr841 TP RO 6.8 g/dL 06/17/2017 Comp Metabolic Ieq501 GL OB 2.4 g/dL 06/17/2017 Comp Metabolic Lys425 A/ G Ratio 1.9 Ratio 06/17/2017 Comp Metabolic Zke885 Os mo 279 mOsmo 06/17/2017 Review of Systems System Result Effective Dates Constitutional No recent illness 11/16/2018 Constitutional No [...] nourished 04/03/2018 None Full Exam - General 1995 Eyes conjunctiva/eyelids Overall: conjunctiva clear 04/03/2018 None [...] skin Location: scalp 10/08/2017 [place] - right taoism, mid fo rehead/scalp, left posterior neck - [...] skin Location: scalp 08/27/2017 [place] - right taoism, mid fo rehead/scalp - cryotherapy to area, [...] CPT-4: J3301 10/15/2018 THER/PROPH/DIAG INJ SC/IM CPT-4: 09825 10/15/2018 ADMIN INFLUENZA VIRU S VAC CPT-4: G0008 06/24/2018 FLU VACC PRSV FREE I NC ANTIG CPT-4: 64456 06/24/2018 GLUC MONITOR CONT PH YS I&R CPT-4: 88435 01/27/2018 PPPS, SUBSEQ VISIT CPT- 4: G0439 01/21/2018 GLUCOSE MONITORING CONT CPT-4: 45510 01/06/2018 ADMIN INFLUENZA VIRU S VAC CPT-4: G0008 06/09/2017 FLU VACC PRSV FREE I NC ANTIG CPT-4: 75479 06/09/2017 Vital Signs Date Vital 11/16/2018 Blood Pressure 1: 154/90 Code: 8480-6 BMI: 33.1 Code: 93551-9 Heart Rate 1: 84 bpm Height: 5'8" SpO2: 96% Weight: 218 lbs 10/15/2018 Blood Pressure 1: 140/70 Code: 8480-6 BMI: 33.5 Code: 47423-8 Heart Rate 1: 72 bpm Height: 5'8" SpO2: 98% Weight: 220 lbs 08/05/2018 Blood Pressure 1: 132/56 Code: 8480-6 BMI: 34.5 Code: 03032-8 Heart Rate 1: 65 bpm Height: 5'8" SpO2: 95% Weight: 227 lbs 06/22/2018 Blood Pressure 1: 144/86 Code: 8480-6 BMI: 36.0 Code: 03283-0 Heart Rate 1: 74 bpm Height: 5'8" SpO2: 98% Weight: 237 lbs 05/14/2018 Blood Pressure 1: 132/72 Code: 8480-6 Height: Weight: 04/27/2018 Blood Pressure 1: 148/78 Code: 8480-6 BMI: 35.6 Code: 96395-8 Heart Rate 1: 77 bpm Height: 5'8" SpO2: 97% Weight: 234 lbs 04/03/2018 Blood Pressure 1: 156/80 Code: 8480-6 BMI: 35.4 Code: 70921-7 Heart Rate 1: 70 bpm Height: 5'8" SpO2: 97% Weight: 233 lbs 01/27/2018 BMI: 35.6 Code: 58405-3 Heart Rate 1: 86 bpm Height: 5'8" SpO2: 98% Weight: 234 lbs 01/21/2018 Heigh t: Weight: 01/06/2018 Heigh t: Weight: 12/31/2017 Blood Pressure 1: 140/86 Code: 8480-6 BMI: 34.2 Code: 73183-8 Heart Rate 1: 80 bpm Height: 5'8" SpO2: 98% Weight: 225 lbs 10/08/2017 Blood Pressure 1: 152/74 Code: 8480-6 BMI: 34.2 Code: 16830-3 Heart Rate 1: 67 bpm Height: 5'8" SpO2: 98% Weight: 225 lbs 08/27/2017 Blood Pressure 1: 144/82 Code: 8480-6 BMI: 34.2 Code: 33564-7 Heart Rate 1: 70 bpm Height: 5'8" SpO2: 98% Weight: 225 lbs 06/10/2017 Blood Pressure 1: 150/84 Code: 8480-6 BMI: 35.0 Code: 38316-1 Heart Rate 1: 67 bpm Height: 5'8" SpO2: 98% Weight: 230 lbs 05/20/2017 Blood Pressure 1: 146/76 Code: 8480-6 BMI: 35.3 Code: 80898-0 Heart Rate 1: 70 bpm Height: 5'8" SpO2: 98% Weight: 232 lbs Functional Status No Functional Status data History of Present Illness Symptom Name Status Resu lt Effective Date Notes Quality chronic 11/16/2018 None Alleviating Factors me [...] Encounters Encounter Performer Loca tion Codes Date 07369 EST. PATIENT, LEVEL III Diagnosis: Type 2 diabetes mellitus with hyperglycemia[ICD10: E11.65] Diagnosis: Essential (primary) hypertension[ICD10: I10] Laney Guerrero MD, [facility] CPT-4: 36819 11/16/2018 42366 EST. PATIENT, LEVEL IV Diagnosis: Other acute sinusitis[ICD10: J01.80] Diagnosis: Other allergic rhinitis[ICD10: J30.89] Laney Guerrero MD, [facility] CPT-4: 03198 10/15/2018 47908 EST. PATIENT, LEVEL III Diagnosis: Type 2 diabetes mellitus with hyperglycemia[ICD10: E11.65] Laney Guerrero MD, [facility] CPT-4: 70047 08/05/2018 35099 EST. PATIENT, LEVEL III Diagnosis: Type 2 diabetes mellitus with hyperglycemia[ICD10: E11.65] Laney Guerrero MD, [facility] CPT-4: 59194 06/22/2018 53707 EST. PATIENT, LEVEL IV Diagnosis: Diplopia[ICD10: H53.2] Diagnosis: Other specified anemias[ICD10: D64.89] Laney Guerrero MD, [facility] CPT-4: 91351 05/14/2018 16858 EST. PATIENT, LEVEL III Diagnosis: Benign paroxysmal vertigo, bilateral[ICD10: H81.13] Diagnosis: Other allergic rhinitis[ICD10: J30.89] Laney Guerrero MD, [facility] CPT-4: 61573 04/27/2018 65335 EST. PATIENT, LEVEL III Diagnosis: Type 2 diabetes mellitus with hyperglycemia[ICD10: E11.65] Diagnosis: Other fatigue[ICD10: R53.83] Diagnosis: Other malaise[ICD10: R53.81] Diagnosis: Bitten or stung by nonvenomous insect and other nonvenomous arthropods, initial encounter[ICD10: W57.XXXA] Diagnosis: Cellulitis of right upper limb[ICD10: L03.113] Diagnosis: Mixed hyperlipidemia[ICD10: E78.2] Laney Guerrero MD, [facility] CPT-4: 21814 04/03/2018 ([id number]) 57689 EST. P ATIENT, LEVEL III Diagnosis: Type 2 diabetes mellitus with hyperglycemia[ICD10: E11.65] Laney Guerrero MD, [facility] CPT-4: 11814 01/27/2018 ([id number]) Miscellaneou s no charge Diagnosis: Type 2 diabetes mellitus with hyperglycemia[ICD10: E11.65] Laney Guerrero MD, [facility] CPT-4: 08847 01/13/2018 16828 EST. PATIENT, LEVEL III Diagnosis: Type 2 diabetes mellitus with hyperglycemia[ICD10: E11.65] Diagnosis: Essential (primary) hypertension[ICD10: I10] Diagnosis: Mixed hyperlipidemia[ICD10: E78.2] Laney Guerrero MD, [facility] CPT-4: 58059 12/31/2017 21407 EST. PATIENT, LEVEL III Diagnosis: Type 2 diabetes mellitus with hyperglycemia[ICD10: E11.65] Diagnosis: Essential (primary) hypertension[ICD10: I10] Diagnosis: Mixed hyperlipidemia[ICD10: E78.2] Diagnosis: Actinic keratosis[ICD10: L57.0] Laney Guerrero MD, [facility] CPT-4: 65684 10/08/2017 19672 EST. PATIENT, LEVEL III Diagnosis: Type 2 diabetes mellitus with hyperglycemia[ICD10: E11.65] Diagnosis: Essential (primary) hypertension[ICD10: I10] Diagnosis: Mixed hyperlipidemia[ICD10: E78.2] Diagnosis: Actinic keratosis[ICD10: L57.0] Laney Guerrero MD, [facility] CPT-4: 76732 08/27/2017 13557 EST. PATIENT, LEVEL III Diagnosis: Type 2 diabetes mellitus with hyperglycemia[ICD10: E11.65] Diagnosis: Essential (primary) hypertension[ICD10: I10] Diagnosis: Mixed hyperlipidemia[ICD10: E78.2] Laney Guerrero MD, [facility] CPT-4: 84820 06/25/2017 ([id number]) 65006 EST. 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 11/16/2018 [phone] [id number] ([facility] min) Moderate 11/16/2018 [phone] ([facility] Complex 11/16/2018 Patient Education: Patient Medication Summary Completed 11/16/2018 Patient Education: Diabetes Completed 11/16/2018 [phone] [facility] (15 min) Moderate 11/02/2018 Patient Education: Patient [...] spray. 10/15/2018 Appointment: Laney Luther WPtel: [phone] [facility] (30 min) Complex 10/15/2018 Patient Education: Patient [...] control. 08/05/2018 Appointment: Laney Luther WPtel: [phone] [facility] (15 min) Moderate 08/05/2018 Patient Education: Patient Medication Summary Completed 08/05/2018 Appointment: Laney Luther WPtel: [phone] [facility] (15 min) Moderate 07/17/2018 Referral: Kevin uCevas Referral Initiated 07/07/2018 Appointment: Andrey 06/24/2018 Patient [...] control. 06/22/2018 Appointment: Laney Luther WPtel: [facility] [address] (15 min) Moderate 06/22/2018 Patient Education: Patient Medication Summary Completed 06/22/2018 Patient Education: Diabetes Completed 06/22/2018 Care Plan: Referral Order SNOMED-CT : [id number] Pending 06/22/2018 Referral: Alex [address] Referral Initiated 06/02/2018 Appointment: Nurse Visit 05/18/2018 [...] concerns. 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 04/03/2018 Appointment: Laney Luther WPtel: [id number] (15 min) Moderate 04/03/2018 Patient Education: Patient Medication Summary Completed 04/03/2018 Appointment: [facility] Luther [facility]Ptel[id number] (30 min) Complex 03/31/2018 Patient Education: [...] control. 01/27/2018 Visit Plan: Diabetes Mellitus - Elio harris recommended for the patient to have [...] glucose control. 01/27/2018 Appointment: Lane[facility] Luther [facility]Ptel[id number] ([facility] min) Complex 01/27/2018 Patient Education: [...] Completed 01/21/2018 Appointment: [facility]Ptel[id number] (15 min) Moderate 01/13/2018 Patient Education: [...] glucose control. 01/06/2018 Appointment: Laney Luther WPtel: [address] [place], [place] [phone] (15 min) Moderate 01/06/2018 Patient Education: Patient [...] medications. 12/31/2017 Appointment: [facility] Luther [facility]Ptel[id number] ([facility] min) Complex 12/31/2017 Patient Education: [...] concerns. 10/08/2017 Appointment: [facility]Ptel[id number] ([facility] min) Complex 10/08/2017 Patient Education: Patient Medication Summary Completed 10/08/2017 Appointment: [facility]el[id number] (15 min) Moderate 10/07/2017 Visit Plan: [...] concerns. 08/27/2017 Appointment: [facility]Ptel[id number] (30 min) Complex 08/27/2017 Patient Education: [...] liver response to medications. 06/25/2017 Appointment[facility] Luthertel[id number] (30 min) Complex 06/25/2017 Patient Education: Patient Medication Summary Completed 06/25/2017 Appointment: De[facility] Ramireztel[id number] (30 min) Complex 06/24/2017 Visit Plan: Hypertension [...] liver response to medications. 06/10/2017 Appointment: Debra Ramirez: [phone] [id number] (30 min) Complex 06/10/2017 Patient Education: Patient [...] control. 05/20/2017 Appointment: Laney Luther WPtel: [facility] New Patient 05/20/2017 Patient Education: Patient Medication Summary Completed 05/20/2017 Referral: Christian Johnson [address] Referral Initiated Referral: Kevin Cuevas Referral Initiated [...] to assure normal liver response to medications. start zyrtec daily - let your eye [...] blood glucose control. GET RECENT LABS FROM [facility] NEXT WEEK UNLESS WE [...]
--- OUTSIDE RECORDS SUMMARY | 2020-02-09 07:07 | XMS REPORT | CCD ---
Author Author Gunnar Luther Organization Karo Guerrero MD, [facility] Address [address] [place] [address] Phone Care Team Providers Care Manager Of Software Development Name Role Phone PP Unavailable CCM Unavailable Summary Purpose Interface Exchange Insurance Providers Payer name Policy type / Coverage type Covered democrat ID Effective Begin Date Effective End Date WPS Medicare Part B Medicare Part B [id number] Unknown Aetna Medicare Part B AH [id number] Unknown Cigna Medicare Part B 80 [id number] Unknown Family history Sister Diagnosis Age At [...] ed reddy 05/20/[address]: 789213233 Never smoker 05/20/[address]: 701418469 Never drinks alcohol 05/20/2017 Allergies, Adverse Reactions, [...] Date Stop Date Sta tus Fill Instructions diltiazem CD 360 mg capsule,extended release 24 hr RxNorm: 547770 1 CAPSULE(S) PO QHS 12/29/2018 12/23/2019 Ac tive atenolol 50 mg-chlor thalidone 25 mg tablet RxNorm: 776752 1 TABLET(S) PO DAILY 12/17/2018 12/11/2019 Ac tive PLEASE SEND REFILL REQUESTS ELECTRONICAL LY metformin ER 750 mg tablet,extended release 24 hr RxNorm: 227832 2 TABLET(S) PO DAILY 12/17/2018 06/14/2019 Ac tive metformin ER 750 mg tablet,extended release 24 hr RxNorm: 466953 2 TABLET(S) PO DAILY 11/13/2018 12/16/2018 Inactive Tradjenta 5 mg tablet RxNorm: 1475721 TAKE 1 TABLET BY MOUTH DAILY 10/16/2018 03/14/2019 Ac tive Kenalog 40 mg/mL benitez pension for injection RxNorm: 1755313 1 Milliliter(s) Inj 10/15/2018 10/15/2018 In active Tradjenta 5 mg tablet RxNorm: 6248971 TAKE 1 TABLET BY MOUTH DAILY 09/18/2018 02/14/2019 Ac tive metformin ER 750 mg tablet,extended release 24 hr RxNorm: 672788 2 TABLET(S) PO DAILY 07/13/2018 11/09/2018 Inactive Tradjenta 5 mg tablet RxNorm: 2745352 TAKE 1 TABLET BY MOUTH DAILY 07/02/2018 09/17/2018 In active One Touch Test strips RxNorm: 1 Miscellaneous BID 06/29/2018 07/28/2018 Inactive Zyrtec 10 mg tablet RxNorm: 2423344 1 Tablet(s) PO daily 04/27/2018 05/26/2018 Inactive doxycycline hyclate 100 mg capsule RxNorm: 6673205 1 Capsule(s) PO BID 04/03/2018 04/12/2018 In active meclizine 25 mg tablet RxNorm: 418177 1 Tablet(s) PO TID as needed Dizziness 04/03/2018 04/07/2018 In active metformin ER 750 mg tablet,extended release 24 hr RxNorm: 469352 2 TABLET(S) PO DAILY 02/03/2018 06/02/2018 Inactive glimepiride 2 mg tablet RxNorm: 253933 TAKE 1 TABLET BY MOUTH TWICE DAILY FOR D IABETES 01/13/2018 04/07/2019 Active glimepiride 2 mg tablet RxNorm: 071266 TAKE 1 TABLET BY MOUTH TWICE DAILY FOR D IABETES 01/11/2018 01/05/2019 Active diltiazem CD 360 mg capsule,extended release 24 hr RxNorm: 625328 1 CAPSULE(S) PO QHS 01/02/2018 12/27/2018 Inactive atenolol 50 mg-chlor thalidone 25 mg tablet RxNorm: 815550 1 Tablet(s) PO daily 12/18/2017 12/12/2018 In active PLEASE SEND REFILL REQUESTS ELECTRONICAL LY Tradjenta 5 mg tablet RxNorm: 5269264 TAKE 1 TABLET BY MOUTH DAILY 12/15/2017 05/13/2018 In active metformin ER 750 mg tablet,extended release 24 hr RxNorm: 404060 2 TABLET(S) PO DAILY 11/05/2017 12/16/2018 Inactive metformin ER 750 mg tablet,extended release 24 hr RxNorm: 519152 2 TABLET(S) PO DAILY 11/03/2017 02/02/2018 Inactive atorvastatin 20 mg t ablet RxNorm: 275489 TAKE 1 TABLET BY MOUT H EVERY NIGHT AT BEDTIME FOR CHOLESTEROL 08/28/2017 08/22/2018 Inactive Zithromax Z-Maury 250 mg tablet RxNorm: 230062 1 Tablet(s) PO UD 08/15/2017 04/13/2018 Inactive Tamiflu 75 mg capsule RxNorm: 152022 1 Capsule(s) PO BID 08/15/2017 08/14/2017 Inactive Tamiflu 75 mg capsule RxNorm: 816396 1 Capsule(s) PO BID 08/15/2017 08/19/2017 Inactive Tradjenta 5 mg tablet RxNorm: 5285623 TAKE 1 TABLET BY MOUTH DAILY 08/12/2017 12/09/2017 In active metformin ER 750 mg tablet,extended release 24 hr RxNorm: 851151 TAKE 2 TABLET BY MOUT H ONCE A DAY DIRECTED 08/08/2017 12/16/2018 Inactive SAVINGS FOR NON-COVERED MED ICATIONS Claims: BIN: [id number], PCN: [id number], GROUP: [id number], Patient ID: [id number] Phone; Questions: YourRx [phone] metformin ER 750 mg tablet,extended release 24 hr RxNorm: 464261 2 Tablet(s) PO daily 08/07/2017 08/06/2017 Inactive metformin ER 750 mg tablet,extended release 24 hr RxNorm: 934700 2 Tablet(s) PO daily 08/07/2017 11/02/2017 Inactive glimepiride 2 mg tablet RxNorm: 583600 TAKE 1 TABLET BY MOUTH TWICE DAILY FOR D IABETES 07/18/2017 01/10/2018 Inactive diltiazem CD 360 mg capsule,extended release 24 hr RxNorm: 485341 1 Capsule(s) PO QHS 07/03/2017 12/29/2017 Inactive One Touch Test strips RxNorm: 1 Miscellaneous daily 05/30/2017 06/28/2017 Inactive One Touch Test strips RxNorm: 1 Miscellaneous daily 05/30/2017 05/29/2017 Inactive iron gluconate-B cmp lx-potassium iodide-minerals oral RxNorm: 69574 oral No Start Date Active Super B Complex 100 tablet RxNorm: 1 Tablet(s) PO daily No Start Date Active Glucosamine Chondroi tin Maximum Strength oral RxNorm: 4845 oral No Start Date Active garlic 1,000 mg capsule RxNorm: 949992 1 Capsule(s) PO BID No Start Date Active vitamin E (dl, aceta te) 400 unit capsule RxNorm: 040792 1 Capsule(s) PO daily No Start Date Active beta carotene 25,000 unit tablet RxNorm: 580015 1 Tablet(s) PO daily No Start Date Active rutin 500 mg tablet RxNorm: 436424 1/2 Tablet(s) PO daily No Start Date Active Calcium 600 + Min[place] ls oral RxNorm: 798084 oral No S tart Date Active Vitamin D3 1,000 uni t tablet RxNorm: 558051 1 Tablet(s) PO daily No Start Date Active Vitamin C 500 mg tablet RxNorm: 360564 1 Tablet(s) PO daily No Start Date Active acidophilus 25 susanne on cell-pectin, citrus 100 mg tablet RxNorm: 097193 1 Tablet(s) PO BID No Start Date Active Zinc and C oral RxNorm: oral No Start Date Active aspirin 81 mg chewab le tablet RxNorm: 419614 1 Tablet(s) PO QPM No Start Date Active Zegerid OTC 20 mg-1. 1 gram capsule RxNorm: 298109 1 Capsule(s) PO daily No Start Date Active magnesium 250 mg tablet RxNorm: 1 Tablet(s) PO daily No Start Date Active flaxseed oil 1,000 m g capsule RxNorm: 641028 1 Capsule(s) PO BID No Start Date Active milk thistle 175 mg tablet RxNorm: 951200 1 Tablet(s) PO daily No Start Date Active metformin ER 750 mg tablet,extended release 24 hr RxNorm: 839913 2 Tablet(s) PO daily No Start Date 08/06/2017 Inactive atorvastatin 20 mg t ablet RxNorm: 637765 1 Tablet(s) PO daily No Start Date 08/27/2017 Inactive Tradjenta 5 mg tablet RxNorm: 4400910 1 Tablet(s) PO daily No Start Date 08/11/2017 Inactive diltiazem ER 300 mg tablet,extended release 24 hr RxNorm: 049381 1 Tablet(s) PO daily No Start Date 05/18/2017 Inactive glimepiride 2 mg tablet RxNorm: 951623 1 Tablet(s) PO BID No Start Date 07/17/2017 Inactive Zithromax Z-Maury 250 mg tablet RxNorm: 722362 1 Tablet(s) PO UD No Start Date 08/14/2017 Inactive atenolol 50 mg-chlor thalidone 25 mg tablet RxNorm: 749442 1 Tablet(s) PO daily No Start Date 12/17/2017 Inactive diltiazem CD 360 mg capsule,extended release 24 hr RxNorm: 140481 1 Capsule(s) PO QHS No Start Date 07/02/2017 Inactive Medication Administered Medication Codes Instruc tions Start Date Status Kenalog 40 mg/mL suspension for injection RxNorm: 6901978 1Milliliter 10/15/2018 N o longer Active Immunizations [...] Item Item Code Result Date Comp Metabolic Biw351 NA 137 mEq/L 11/09/2018 Comp Metabolic Grl954 K 4.4 mEq/L 11/09/2018 Comp Metabolic Lwk294 CL 97 mEq/L 11/09/2018 Comp Metabolic Vuh376 CO2 30.0 mEq/L 11/09/2018 Comp Metabolic Tou128 AN ION GAP 14 11/09/2018 Comp Metabolic Bjb455 GL UCOSE 122 mg/dL 11/09/2018 Comp Metabolic Qse995 Cr eat 1.1 mg/dL 11/09/2018 Comp Metabolic Spb352 eG FR 70 ml/min/1.73m2 11/09 Comp Metabolic Fus469 BUN 21 mg/dL 11/09/2018 Comp Metabolic Agu464 B/ C Ratio 19.6 Ratio 11/09/2018 Comp Metabolic Zow276 CA LCIUM 10.2 mg/dL 11/09/2018 Comp Metabolic Yqn225 AL K PHOS 45 U/L 11/09/2018 Comp Metabolic Wrt024 T(SGOT) 19 U/L 11/09/2018 Comp Metabolic Gyl570 AL T(SGPT) 24 U/L 11/09/2018 Comp Metabolic Poo675 BI LI T 0.5 mg/dL 11/09/2018 Comp Metabolic Slh935 AL BUMIN 4.4 g/dL 11/09/2018 Comp Metabolic Hie644 TP RO 6.7 g/dL 11/09/2018 Comp Metabolic Lwi188 GL OB 2.3 g/dL 11/09/2018 Comp Metabolic Oor464 A/ G Ratio 1.9 Ratio 11/09/2018 Comp Metabolic Ajl467 Os mo 278 mOsmo 11/09/2018 Cbc With [...] 32.0 pg 11/09/2018 Cbc With Differential Ord2 [place]% 9.8 % 11/09/2018 Cbc With Differential Ord2 [...] 2.13 K/ul 11/09/2018 Cbc With Differential Ord2 [place] ABS# 0.8 K/ul 11/09/2018 Cbc With Differential Ord2 Eos ABS# 0.1 K/ul 11/09/2018 Cbc With Differential Ord2 Baso ABS# 0.0 K/ul 11/09/2018 %Hba1C Irs176 % HbA1c 34957-2 6.7 % 11/09/2018 %Hba1C Ahp612 Gluc Ave 146 mg/dL 11/09/2018 Tsh Ord6 [...] 31.4 pg 08/03/2018 Cbc With Differential Ord2 [place]% 11.9 % 08/03/2018 Cbc With Differential Ord2 [...] 1.62 K/ul 08/03/2018 Cbc With Differential Ord2 [place] ABS# 0.9 K/ul 08/03/2018 Cbc With Differential Ord2 Eos ABS# 0.1 K/ul 08/03/2018 Cbc With Differential Ord2 Baso ABS# 0.0 K/ul 08/03/2018 Comp Metabolic Gyo330 NA 135 mEq/L 08/03/2018 Comp Metabolic Jya867 K 3.5 mEq/L 08/03/2018 Comp Metabolic Vjv152 CL 95 mEq/L 08/03/2018 Comp Metabolic Jef734 CO2 30.0 mEq/L 08/03/2018 Comp Metabolic Ebi997 AN ION GAP 14 08/03/2018 Comp Metabolic Oye039 GL UCOSE 152 mg/dL 08/03/2018 Comp Metabolic Yss989 Cr eat 1.2 mg/dL 08/03/2018 Comp Metabolic Iui538 eG FR 61 ml/min/1.73m2 08/03 Comp Metabolic Ksn677 BUN 23 mg/dL 08/03/2018 Comp Metabolic Zpw488 B/ C Ratio 19.0 Ratio 08/03/2018 Comp Metabolic Cfp394 CA LCIUM 9.6 mg/dL 08/03/2018 Comp Metabolic Kxg402 AL K PHOS 51 U/L 08/03/2018 Comp Metabolic Nko652 T(SGOT) 20 U/L 08/03/2018 Comp Metabolic Rsl617 AL T(SGPT) 24 U/L 08/03/2018 Comp Metabolic Neg981 BI LI T 0.5 mg/dL 08/03/2018 Comp Metabolic Jvi936 AL BUMIN 4.3 g/dL 08/03/2018 Comp Metabolic Dse734 TP RO 6.8 g/dL 08/03/2018 Comp Metabolic Dak887 GL OB 2.6 g/dL 08/03/2018 Comp Metabolic Pxg374 A/ G Ratio 1.7 Ratio 08/03/2018 Comp Metabolic Hbh837 Os mo 277 mOsmo 08/03/2018 %Hba1C Mzy860 % HbA1c 39005-1 7.3 % 08/03/2018 %Hba1C Klw395 Gluc Ave 163 mg/dL 08/03/2018 Cbc With [...] 31.2 pg 05/14/2018 Cbc With Differential Ord2 [place]% 12.2 % 05/14/2018 Cbc With Differential Ord2 [...] 1.81 K/ul 05/14/2018 Cbc With Differential Ord2 [place] ABS# 1.0 K/ul 05/14/2018 Cbc With Differential Ord2 Eos ABS# 0.1 K/ul 05/14/2018 Cbc With Differential Ord2 Baso ABS# 0.0 K/ul 05/14/2018 Ehrlichia [place]ensis Antibody Igm [id number] EHRLICHIA CHAFFEENSIS IGM < 1:16 04/09/2018 Ehrlichia [place]ensis Antibody Igg 838009 EHRLICHIA CHAFFEENSIS IGG 1:64 04/09/2018 [place] Spotted Fever Igg/Igm 88677 3 [place] SPOTTED FEVER IGM EIA . 04/09/2018 [place] Spotted Fever Igg/Igm 70103 3 RMSF, IGM 0.36 index 04/09/2018 [place] Spotted Fever Igg/Igm 79875 3 [place]US [place] SPOTTED FEVER IGG EIA FLEX . 04/09/2018 [place] Spotted Fever Igg/Igm 25460 3 RMSF, IGG SCREEN-FLEX Negative 04/09/2018 Lymes Disease Total Antibodies With Western Blot Refle x [id number] B. BURGDORFERI, IGG/IGM 0.31 04/07/2018 Lymes Disease Total Antibodies With Western Blot Refle x [id number] INTERPRETATION 04/07/2018 %Hba1C Vgd378 % HbA1c 46834-2 7.2 % 03/31/2018 %Hba1C Muj999 Gluc Ave 160 mg/dL 03/31/2018 Lipid Ord30 [...] 31.3 pg 12/22/2017 Cbc With Differential Ord2 [place]% 11.5 % 12/22/2017 Cbc With Differential Ord2 [...] 2.16 K/ul 12/22/2017 Cbc With Differential Ord2 [place] ABS# 1.1 K/ul 12/22/2017 Cbc With Differential Ord2 Eos ABS# 0.1 K/ul 12/22/2017 Cbc With Differential Ord2 Baso ABS# 0.0 K/ul 12/22/2017 Comp Metabolic Vmu312 NA 141 mEq/L 12/22/2017 Comp Metabolic Srx049 K 3.9 mEq/L 12/22/2017 Comp Metabolic Izc270 CL 99 mEq/L 12/22/2017 Comp Metabolic Kld887 CO2 32.0 mEq/L 12/22/2017 Comp Metabolic Qsl021 AN ION GAP 14 12/22/2017 Comp Metabolic Ios159 GL UCOSE 152 mg/dL 12/22/2017 Comp Metabolic Dco742 Cr eat 1.0 mg/dL 12/22/2017 Comp Metabolic Hym945 eG FR 78 ml/min/1.73m2 12/22 Comp Metabolic Mje369 BUN 27 mg/dL 12/22/2017 Comp Metabolic Vuc147 B/ C Ratio 27.8 Ratio 12/22/2017 Comp Metabolic Ojj611 CA LCIUM 9.7 mg/dL 12/22/2017 Comp Metabolic Kcs059 AL K PHOS 56 U/L 12/22/2017 Comp Metabolic Fnk502 T(SGOT) 18 U/L 12/22/2017 Comp Metabolic Vgp096 AL T(SGPT) 20 U/L 12/22/2017 Comp Metabolic Zkj725 BI LI T 0.4 mg/dL 12/22/2017 Comp Metabolic Rtw671 AL BUMIN 4.2 g/dL 12/22/2017 Comp Metabolic Ved975 TP RO 6.4 g/dL 12/22/2017 Comp Metabolic Ikp272 GL OB 2.2 g/dL 12/22/2017 Comp Metabolic Swl499 A/ G Ratio 1.9 Ratio 12/22/2017 Comp Metabolic Lww839 Os mo 289 mOsmo 12/22/2017 %Hba1C Ngw516 % HbA1c 19505-5 7.1 % 12/22/2017 %Hba1C Rjs571 Gluc Ave 157 mg/dL 12/22/2017 Cbc With [...] 31.5 pg 09/22/2017 Cbc With Differential Ord2 [place]% 8.4 % 09/22/2017 Cbc With Differential Ord2 [...] 1.83 K/ul 09/22/2017 Cbc With Differential Ord2 [place] ABS# 0.9 K/ul 09/22/2017 Cbc With Differential Ord2 Eos ABS# 0.0 K/ul 09/22/2017 Cbc With Differential Ord2 Baso ABS# 0.0 K/ul 09/22/2017 %Hba1C Wke545 % HbA1c 91780-0 6.9 % 09/22/2017 %Hba1C Zeu021 Gluc Ave 151 mg/dL 09/22/2017 Tsh Ord6 [...] 31.6 pg 06/17/2017 Cbc With Differential Ord2 [place]% 11.1 % 06/17/2017 Cbc With Differential Ord2 [...] 2.35 K/ul 06/17/2017 Cbc With Differential Ord2 [place] ABS# 1.2 K/ul 06/17/2017 Cbc With Differential Ord2 Eos ABS# 0.1 K/ul 06/17/2017 Cbc With Differential Ord2 Baso ABS# 0.0 K/ul 06/17/2017 %Hba1C Nge741 % HbA1c 05897-7 7.3 % 06/17/2017 %Hba1C Ylt497 Gluc Ave 163 mg/dL 06/17/2017 Comp Metabolic Lbo976 NA 137 mEq/L 06/17/2017 Comp Metabolic Vhw692 K 3.8 mEq/L 06/17/2017 Comp Metabolic Boz032 CL 98 mEq/L 06/17/2017 Comp Metabolic Usa563 CO2 30.0 mEq/L 06/17/2017 Comp Metabolic Gza659 AN ION GAP 13 06/17/2017 Comp Metabolic Zsm227 GL UCOSE 157 mg/dL 06/17/2017 Comp Metabolic Hmi419 Cr eat 1.0 mg/dL 06/17/2017 Comp Metabolic Dqc047 eG FR 76 ml/min/1.73m2 06/17 Comp Metabolic Ihi504 BUN 18 mg/dL 06/17/2017 Comp Metabolic Wua169 B/ C Ratio 18.0 Ratio 06/17/2017 Comp Metabolic Caj275 CA LCIUM 9.8 mg/dL 06/17/2017 Comp Metabolic Xej515 AL K PHOS 57 U/L 06/17/2017 Comp Metabolic Vzj144 T(SGOT) 19 U/L 06/17/2017 Comp Metabolic Uio856 AL T(SGPT) 23 U/L 06/17/2017 Comp Metabolic Ptg089 BI LI T 0.6 mg/dL 06/17/2017 Comp Metabolic Umh430 AL BUMIN 4.4 g/dL 06/17/2017 Comp Metabolic Yfq573 TP RO 6.8 g/dL 06/17/2017 Comp Metabolic Iok167 GL OB 2.4 g/dL 06/17/2017 Comp Metabolic Xbh158 A/ G Ratio 1.9 Ratio 06/17/2017 Comp Metabolic Tyh344 Os mo 279 mOsmo 06/17/2017 Review of [...] clear 05/14/2018 None Full Exam - General 1995 Eyes conjunctiva/eyelids Overall: cornea clear 05/14/2018 None [...] skin Location: scalp 10/08/2017 AK - right congregational, mid fo rehead/scalp, left posterior neck - [...] skin Location: scalp 08/27/2017 [place] - right congregational, mid fo rehead/scalp - cryotherapy to area, [...] CPT-4: J3301 10/15/2018 THER/PROPH/DIAG INJ SC/IM CPT-4: 69039 10/15/2018 ADMIN INFLUENZA VIRU S VAC CPT-4: G0008 06/24/2018 FLU VACC PRSV FREE I NC ANTIG CPT-4: 96517 06/24/2018 GLUC MONITOR CONT PH YS I&R CPT-4: 53399 01/27/2018 PPPS, SUBSEQ VISIT CPT- 4: G0439 01/21/2018 GLUCOSE MONITORING CONT CPT-4: 03682 01/06/2018 ADMIN INFLUENZA VIRU S VAC CPT-4: G0008 06/09/2017 FLU VACC PRSV FREE I NC ANTIG CPT-4: 22692 06/09/2017 Vital Signs Date Vital 11/16/2018 Blood Pressure 1: 154/90 Code: 8480-6 BMI: 33.1 Code: 04812-0 Heart Rate 1: 84 bpm Height: 5'8" SpO2: 96% Weight: 218 lbs 10/15/2018 Blood Pressure 1: 140/70 Code: 8480-6 BMI: 33.5 Code: 20659-9 Heart Rate 1: 72 bpm Height: 5'8" SpO2: 98% Weight: 220 lbs 08/05/2018 Blood Pressure 1: 132/56 Code: 8480-6 BMI: 34.5 Code: 48646-1 Heart Rate 1: 65 bpm Height: 5'8" SpO2: 95% Weight: 227 lbs 06/22/2018 Blood Pressure 1: 144/86 Code: 8480-6 BMI: 36.0 Code: 04472-7 Heart Rate 1: 74 bpm Height: 5'8" SpO2: 98% Weight: 237 lbs 05/14/2018 Blood Pressure 1: 132/72 Code: 8480-6 Height: Weight: 04/27/2018 Blood Pressure 1: 148/78 Code: 8480-6 BMI: 35.6 Code: 13646-9 Heart Rate 1: 77 bpm Height: 5'8" SpO2: 97% Weight: 234 lbs 04/03/2018 Blood Pressure 1: 156/80 Code: 8480-6 BMI: 35.4 Code: 53666-3 Heart Rate 1: 70 bpm Height: 5'8" SpO2: 97% Weight: 233 lbs 01/27/2018 BMI: 35.6 Code: 60133-5 Heart Rate 1: 86 bpm Height: 5'8" SpO2: 98% Weight: 234 lbs 01/21/2018 Heigh t: Weight: 01/06/2018 Heigh t: Weight: 12/31/2017 Blood Pressure 1: 140/86 Code: 8480-6 BMI: 34.2 Code: 70689-3 Heart Rate 1: 80 bpm Height: 5'8" SpO2: 98% Weight: 225 lbs 10/08/2017 Blood Pressure 1: 152/74 Code: 8480-6 BMI: 34.2 Code: 91228-6 Heart Rate 1: 67 bpm Height: 5'8" SpO2: 98% Weight: 225 lbs 08/27/2017 Blood Pressure 1: 144/82 Code: 8480-6 BMI: 34.2 Code: 07172-8 Heart Rate 1: 70 bpm Height: 5'8" SpO2: 98% Weight: 225 lbs 06/10/2017 Blood Pressure 1: 150/84 Code: 8480-6 BMI: 35.0 Code: 65181-4 Heart Rate 1: 67 bpm Height: 5'8" SpO2: 98% Weight: 230 lbs 05/20/2017 Blood Pressure 1: 146/76 Code: 8480-6 BMI: 35.3 Code: 28742-3 Heart Rate 1: 70 bpm Height: 5'8" [...] Findings Denies nausea 06/10/2017 None hypertension Quality [facility] herminio hypertension 06/10/2017 None hypertension Onset and Resolution ongoing 06/10/2017 None hypertension Onset of Symptom during adulthood 06/10/2017 None hypertension Blood Pressure Values pt checking blood pressure - see scanned document 06/10/2017 None hypertension Alleviating Factors medication 06/10/2017 None hypertension Pertinent Findings edema 06/10/2017 "a little for a long time " hypertension Quality [facility] onic 05/20/2017 None hypertension Onset and Resolution [...] Encounters Encounter Performer Loca tion Codes Date 53052 EST. PATIENT, LEVEL III Diagnosis: Type 2 diabetes mellitus with hyperglycemia[ICD10: E11.65] Diagnosis: Essential (primary) hypertension[ICD10: I10] Laney Guerrero MD, [facility] CPT-4: 12202 11/16/2018 59980 EST. PATIENT, LEVEL IV Diagnosis: Other acute sinusitis[ICD10: J01.80] Diagnosis: Other allergic rhinitis[ICD10: J30.89] Laney Guerrero MD, [facility] CPT-4: 02139 10/15/2018 [id number] EST. PATIENT, LEVEL III Diagnosis: Type 2 diabetes mellitus with hyperglycemia[ICD10: E11.65] Laney Guerrero MD, [facility] CPT-4: 57482 08/05/2018 74669 EST. PATIENT, LEVEL III Diagnosis: Type 2 diabetes mellitus with hyperglycemia[ICD10: E11.65] Laney Guerrero MD, [facility] CPT-4: 02106 06/22/2018 76737 EST. PATIENT, LEVEL IV Diagnosis: Diplopia[ICD10: H53.2] Diagnosis: Other specified anemias[ICD10: D64.89] Laney Guerrero MD, [facility] CPT-4: 99784 05/14/2018 72250 EST. PATIENT, LEVEL III Diagnosis: Benign paroxysmal vertigo, bilateral[ICD10: H81.13] Diagnosis: Other allergic rhinitis[ICD10: J30.89] Laney Guerrero MD, [facility] CPT-4: 64160 04/27/2018 60765 EST. PATIENT, LEVEL III Diagnosis: Type 2 diabetes mellitus with hyperglycemia[ICD10: E11.65] Diagnosis: Other fatigue[ICD10: R53.83] Diagnosis: Other malaise[ICD10: R53.81] Diagnosis: Bitten or stung by nonvenomous insect and other nonvenomous arthropods, initial encounter[ICD10: W57.XXXA] Diagnosis: Cellulitis of right upper limb[ICD10: L03.113] Diagnosis: Mixed hyperlipidemia[ICD10: E78.2] Laney Guerrero MD, [facility] CPT-4: 25636 04/03/2018 ([id number]) 87383 EST. P ATIENT, LEVEL III Diagnosis: Type 2 diabetes mellitus with hyperglycemia[ICD10: E11.65] Laney Guerrero MD, [facility] CPT-4: 35966 01/27/2018 ([id number]) Miscellaneou s no charge Diagnosis: Type 2 diabetes mellitus with hyperglycemia[ICD10: E11.65] Laney Guerrero MD, [facility] CPT-4: 24313 01/13/2018 31611 EST. PATIENT, LEVEL III Diagnosis: Type 2 diabetes mellitus with hyperglycemia[ICD10: E11.65] Diagnosis: Essential (primary) hypertension[ICD10: I10] Diagnosis: Mixed hyperlipidemia[ICD10: E78.2] Laney Guerrero MD, [facility] CPT-4: 56027 12/31/2017 49338 EST. PATIENT, LEVEL III Diagnosis: Type 2 diabetes mellitus with hyperglycemia[ICD10: E11.65] Diagnosis: Essential (primary) hypertension[ICD10: I10] Diagnosis: Mixed hyperlipidemia[ICD10: E78.2] Diagnosis: Actinic keratosis[ICD10: L57.0] Laney Guerrero MD, [facility] CPT-4: 12741 10/08/2017 39589 EST. PATIENT, LEVEL III Diagnosis: Type 2 diabetes mellitus with hyperglycemia[ICD10: E11.65] Diagnosis: Essential (primary) hypertension[ICD10: I10] Diagnosis: Mixed hyperlipidemia[ICD10: E78.2] Diagnosis: Actinic keratosis[ICD10: L57.0] Laney Guerrero MD, [facility] CPT-4: 74104 08/27/2017 64333 EST. PATIENT, LEVEL III Diagnosis: Type 2 diabetes mellitus with hyperglycemia[ICD10: E11.65] Diagnosis: Essential (primary) hypertension[ICD10: I10] Diagnosis: Mixed hyperlipidemia[ICD10: E78.2] Laney Guerrero MD, [facility] CPT-4: 66449 06/25/2017 ([id number]) 27380 EST. 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 11/16/2018 Appointment: Karo Guerrero WPtel: [phone] [facility] (15 min) Moderate 11/16/2018 Appointment: Laney Luther WPtel: [phone] [facility] (30 min) Complex 11/16/2018 Patient Education: Patient Medication Summary Completed 11/16/2018 Patient Education: Diabetes Completed 11/16/2018 Appointment: Laney Luther WPtel: [phone] [facility] (15 min) Moderate 11/02/2018 Patient Education: Patient [...] allergy spray. 10/15/2018 Appointment: Laney Luther WPtel: [facility]5 [facility] (30 min) Complex 10/15/2018 Patient Education: Patient [...] glucose control. 08/05/2018 Appointment: Laney Luther WPtel: [facility]5 [facility] (15 min) Moderate 08/05/2018 Patient Education: Patient Medication Summary Completed 08/05/2018 Appointment: Laney Luther WPtel: [facility]5 [facility] (15 min) Moderate 07/17/2018 Referral: Kevin Cuevas [...] glucose control. 06/22/2018 Appointment: Laney Luther WPtel: [facility] (15 min) Moderate 06/22/2018 Patient Education: Patient Medication Summary Completed 06/22/2018 Patient Education: Diabetes Completed 06/22/2018 Care Plan: Referral Order SNOMED-CT : [id number] Pending 06/22/2018 Referral: Alex [address] Referral Initiated 06/02/2018 Appointment: Nurse Visit [...] or concerns. 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 04/03/2018 Appointment: [phone] [place] (15 min) Moderate 04/03/2018 Patient Education: Patient Medication Summary Completed 04/03/2018 Appointment: Lane[facility] Luther [facility]Ptel[phone] [place] (30 min) Complex 03/31/2018 Patient Education: Patient [...] control. 01/27/2018 Appointment: [facility] Luther [facility]el[phone] (30 min) Complex 01/27/2018 Patient Education: [...] Summary Completed 01/21/2018 App[facility]ment[phone] [id number] ([facility] min) Moderate 01/13/2018 Patient Education: [...] glucose control. 01/06/2018 Appointment: Laney Luther WPtel: [address] [place], [place] [id number] (15 min) Moderate 01/06/2018 Patient Education: Patient [...] medications. 12/31/2017 App[facility]ment[id number] ([facility] min) Complex 12/31/2017 Patient Education: [...] concerns. 10/08/2017 Appointment: [phone] [id number] ([facility] min) Complex 10/08/2017 Patient Education: Patient Medication Summary Completed 10/08/2017 Appointment: Lane[facility] Luther [phone] [id number] (15 min) Moderate 10/07/2017 Visit Plan: [...] acute concerns. 08/27/2017 Appointment: Laney Luther WPtel: [address] [place], [place] [id number] (30 min) [facility] 08/27/2017 Patient Education: Patient Medication Summary Completed [...] medications. 06/25/2017 Appointment: Laney Luther WPtel: [phone] [facility] (30 min) Complex 06/25/2017 Patient Education: Patient Medication Summary Completed 06/25/2017 Appointment: Debra Ramirez WPtel: [phone] [phone] (30 min) Complex 06/24/2017 Visit Plan: Hypertension [...] medications. 06/10/2017 Appointment: Debra Ramirez WPtel: [phone] [phone] (30 min) Complex 06/10/2017 Patient Education: Patient [...] glucose control. 05/20/2017 Appointment: Laney Luther WPtel: [address] [place], [place] [id number] New Patient 05/20/2017 Patient Education: Patient Medication Summary Completed 05/20/2017 [id number] Ref[facility] Initiated Referral: Kevin Cuevas Referral Initiated [...] blood glucose control. GET RECENT LABS FROM [facility] FASTING LABS NEXT WEEK UNLESS [...]
--- OUTSIDE RECORDS SUMMARY | 2020-02-09 07:09 | XMS REPORT | CCD ---
Author Author Gunnar Luther Organization Karo Guerrero MD, [facility] Address [address] [place] [address] Phone Care Team Providers Care Radiology Transcriptionist Name Role Phone PP Unavailable CCM Unavailable Summary Purpose Interface Exchange Insurance Providers Payer name Policy type / Coverage type Covered democrat ID Effective Begin Date Effective End Date WPS Medicare Part B Medicare Part B [id number] Unknown Aetna Medicare Part B AH [id number] Unknown Cigna Medicare Part B 80 [id number] Unknown Family history Sister Diagnosis Age At [...] ed reddy 05/20/[address]: 860497584 Never smoker 05/20/[address]: 914261984 Never drinks alcohol 05/20/2017 Allergies, Adverse Reactions, [...] Date Stop Date Sta tus Fill Instructions atenolol 50 mg-chlor thalidone 25 mg tablet RxNorm: 927732 1 TABLET(S) PO DAILY 12/17/2018 12/11/2019 Ac tive PLEASE SEND REFILL REQUESTS ELECTRONICAL LY metformin ER 750 mg tablet,extended release 24 hr RxNorm: 515705 2 TABLET(S) PO DAILY 12/17/2018 06/14/2019 Ac tive metformin ER 750 mg tablet,extended release 24 hr RxNorm: 697089 2 TABLET(S) PO DAILY 11/13/2018 12/16/2018 Inactive Tradjenta 5 mg tablet RxNorm: 1012478 TAKE 1 TABLET BY MOUTH DAILY 10/16/2018 03/14/2019 Ac tive Kenalog 40 mg/mL benitez pension for injection RxNorm: 8455833 1 Milliliter(s) Inj 10/15/2018 10/15/2018 In active Tradjenta 5 mg tablet RxNorm: 4267636 TAKE 1 TABLET BY MOUTH DAILY 09/18/2018 02/14/2019 Ac tive metformin ER 750 mg tablet,extended release 24 hr RxNorm: 731012 2 TABLET(S) PO DAILY 07/13/2018 11/09/2018 Inactive Tradjenta 5 mg tablet RxNorm: 3771927 TAKE 1 TABLET BY MOUTH DAILY 07/02/2018 09/17/2018 In active One Touch Test strips RxNorm: 1 Miscellaneous BID 06/29/2018 07/28/2018 Inactive Zyrtec 10 mg tablet RxNorm: 7872875 1 Tablet(s) PO daily 04/27/2018 05/26/2018 Inactive doxycycline hyclate 100 mg capsule RxNorm: 7143759 1 Capsule(s) PO BID 04/03/2018 04/12/2018 In active meclizine 25 mg tablet RxNorm: 796336 1 Tablet(s) PO TID as needed Dizziness 04/03/2018 04/07/2018 In active metformin ER 750 mg tablet,extended release 24 hr RxNorm: 442036 2 TABLET(S) PO DAILY 02/03/2018 06/02/2018 Inactive glimepiride 2 mg tablet RxNorm: 127306 TAKE 1 TABLET BY MOUTH TWICE DAILY FOR D IABETES 01/13/2018 04/07/2019 Active glimepiride 2 mg tablet RxNorm: 655709 TAKE 1 TABLET BY MOUTH TWICE DAILY FOR D IABETES 01/11/2018 01/05/2019 Active diltiazem CD 360 mg capsule,extended release 24 hr RxNorm: 002120 1 CAPSULE(S) PO QHS 01/02/2018 12/27/2018 Ac tive atenolol 50 mg-chlor thalidone 25 mg tablet RxNorm: 448841 1 Tablet(s) PO daily 12/18/2017 12/12/2018 In active PLEASE SEND REFILL REQUESTS ELECTRONICAL LY Tradjenta 5 mg tablet RxNorm: 8041757 TAKE 1 TABLET BY MOUTH DAILY 12/15/2017 05/13/2018 In active metformin ER 750 mg tablet,extended release 24 hr RxNorm: 148488 2 TABLET(S) PO DAILY 11/05/2017 12/16/2018 Inactive metformin ER 750 mg tablet,extended release 24 hr RxNorm: 238299 2 TABLET(S) PO DAILY 11/03/2017 02/02/2018 Inactive atorvastatin 20 mg t ablet RxNorm: 118770 TAKE 1 TABLET BY MOUT H EVERY NIGHT AT BEDTIME FOR CHOLESTEROL 08/28/2017 08/22/2018 Inactive Zithromax Z-Maury 250 mg tablet RxNorm: 974263 1 Tablet(s) PO UD 08/15/2017 04/13/2018 Inactive Tamiflu 75 mg capsule RxNorm: 551995 1 Capsule(s) PO BID 08/15/2017 08/14/2017 Inactive Tamiflu 75 mg capsule RxNorm: 094482 1 Capsule(s) PO BID 08/15/2017 08/19/2017 Inactive Tradjenta 5 mg tablet RxNorm: 8608651 TAKE 1 TABLET BY MOUTH DAILY 08/12/2017 12/09/2017 In active metformin ER 750 mg tablet,extended release 24 hr RxNorm: 310959 TAKE 2 TABLET BY MOUT H ONCE A DAY DIRECTED 08/08/2017 12/16/2018 Inactive SAVINGS FOR NON-COVERED MED ICATIONS Claims: BIN: [id number], PCN: [id number], GROUP: VINICIO, Patient ID: [id number] Phone; Questions: Your[facility] [phone] metformin ER 750 mg tablet,extended release 24 hr RxNorm: 568923 2 Tablet(s) PO daily 08/07/2017 08/06/2017 Inactive metformin ER 750 mg tablet,extended release 24 hr RxNorm: 412789 2 Tablet(s) PO daily 08/07/2017 11/02/2017 Inactive glimepiride 2 mg tablet RxNorm: 909669 TAKE 1 TABLET BY MOUTH TWICE DAILY FOR D IABETES 07/18/2017 01/10/2018 Inactive diltiazem CD 360 mg capsule,extended release 24 hr RxNorm: 192330 1 Capsule(s) PO Q 07/03/2017 12/29/2017 Inactive One Touch Test strips RxNorm: 1 Miscellaneous daily 05/30/2017 06/28/2017 Inactive One Touch Test strips RxNorm: 1 Miscellaneous daily 05/30/2017 05/29/2017 Inactive iron gluconate-B cmp lx-potassium iodide-minerals oral RxNorm: 92059 oral No Start Date Active Super B Complex 100 tablet RxNorm: 1 Tablet(s) PO daily No Start Date Active Glucosamine Chondroi tin Maximum Strength oral RxNorm: 4845 oral No Start Date Active garlic 1,000 mg capsule RxNorm: 725474 1 Capsule(s) PO BID No Start Date Active vitamin E (dl, aceta te) 400 unit capsule RxNorm: 394110 1 Capsule(s) PO daily No Start Date Active beta carotene 25,000 unit tablet RxNorm: 932094 1 Tablet(s) PO daily No Start Date Active rutin 500 mg tablet RxNorm: 931357 1/2 Tablet(s) PO daily No Start Date Active Calcium 600 + Min[place] ls oral RxNorm: 451483 oral No S tart Date Active Vitamin D3 1,000 uni t tablet RxNorm: 475590 1 Tablet(s) PO daily No Start Date Active Vitamin C 500 mg tablet RxNorm: 019164 1 Tablet(s) PO daily No Start Date Active acidophilus 25 susanne on cell-pectin, citrus 100 mg tablet RxNorm: 165885 1 Tablet(s) PO BID No Start Date Active Zinc and C oral RxNorm: oral No Start Date Active aspirin 81 mg chewab le tablet RxNorm: 710190 1 Tablet(s) PO QPM No Start Date Active Zegerid OTC 20 mg-1. 1 gram capsule RxNorm: 490010 1 Capsule(s) PO daily No Start Date Active magnesium 250 mg tablet RxNorm: 1 Tablet(s) PO daily No Start Date Active flaxseed oil 1,000 m g capsule RxNorm: 687103 1 Capsule(s) PO BID No Start Date Active milk thistle 175 mg tablet RxNorm: 276444 1 Tablet(s) PO daily No Start Date Active metformin ER 750 mg tablet,extended release 24 hr RxNorm: 324799 2 Tablet(s) PO daily No Start Date 08/06/2017 Inactive atorvastatin 20 mg t ablet RxNorm: 618837 1 Tablet(s) PO daily No Start Date 08/27/2017 Inactive Tradjenta 5 mg tablet RxNorm: 2083518 1 Tablet(s) PO daily No Start Date 08/11/2017 Inactive diltiazem ER 300 mg tablet,extended release 24 hr RxNorm: 236112 1 Tablet(s) PO daily No Start Date 05/18/2017 Inactive glimepiride 2 mg tablet RxNorm: 347546 1 Tablet(s) PO BID No Start Date 07/17/2017 Inactive Zithromax Z-Maury 250 mg tablet RxNorm: 273254 1 Tablet(s) PO UD No Start Date 08/14/2017 Inactive atenolol 50 mg-chlor thalidone 25 mg tablet RxNorm: 712760 1 Tablet(s) PO daily No Start Date 12/17/2017 Inactive diltiazem CD 360 mg capsule,extended release 24 hr RxNorm: 318621 1 Capsule(s) PO QHS No Start Date 07/02/2017 Inactive Medication Administered Medication Codes Instruc tions Start Date Status Kenalog 40 mg/mL suspension for injection RxNorm: 8243398 1Milliliter 10/15/2018 N o longer Active Immunizations [...] Item Item Code Result Date Comp Metabolic Wie986 NA 137 mEq/L 11/09/2018 Comp Metabolic Hyc141 K 4.4 mEq/L 11/09/2018 Comp Metabolic Xgx800 CL 97 mEq/L 11/09/2018 Comp Metabolic Cwz552 CO2 30.0 mEq/L 11/09/2018 Comp Metabolic Hxf446 AN ION GAP 14 11/09/2018 Comp Metabolic Fwe387 GL UCOSE 122 mg/dL 11/09/2018 Comp Metabolic Uvq989 Cr eat 1.1 mg/dL 11/09/2018 Comp Metabolic Fhp332 eG FR 70 ml/min/1.73m2 11/09 Comp Metabolic Hgr561 BUN 21 mg/dL 11/09/2018 Comp Metabolic Kxu772 B/ C Ratio 19.6 Ratio 11/09/2018 Comp Metabolic Rxt329 CA LCIUM 10.2 mg/dL 11/09/2018 Comp Metabolic Ufk593 AL K PHOS 45 U/L 11/09/2018 Comp Metabolic Upx224 T(SGOT) 19 U/L 11/09/2018 Comp Metabolic Dap898 AL T(SGPT) 24 U/L 11/09/2018 Comp Metabolic Vxl726 BI LI T 0.5 mg/dL 11/09/2018 Comp Metabolic Dym986 AL BUMIN 4.4 g/dL 11/09/2018 Comp Metabolic Cnr620 TP RO 6.7 g/dL 11/09/2018 Comp Metabolic Uyl646 GL OB 2.3 g/dL 11/09/2018 Comp Metabolic Daf415 A/ G Ratio 1.9 Ratio 11/09/2018 Comp Metabolic Uiw001 Os mo 278 mOsmo 11/09/2018 Cbc With [...] 32.0 pg 11/09/2018 Cbc With Differential Ord2 [place]% 9.8 % 11/09/2018 Cbc With Differential Ord2 [...] 2.13 K/ul 11/09/2018 Cbc With Differential Ord2 [place] ABS# 0.8 K/ul 11/09/2018 Cbc With Differential Ord2 Eos ABS# 0.1 K/ul 11/09/2018 Cbc With Differential Ord2 Baso ABS# 0.0 K/ul 11/09/2018 %Hba1C Nen265 % HbA1c 94068-1 6.7 % 11/09/2018 %Hba1C Bra180 Gluc Ave 146 mg/dL 11/09/2018 Tsh Ord6 [...] 31.4 pg 08/03/2018 Cbc With Differential Ord2 [place]% 11.9 % 08/03/2018 Cbc With Differential Ord2 [...] 1.62 K/ul 08/03/2018 Cbc With Differential Ord2 [place] ABS# 0.9 K/ul 08/03/2018 Cbc With Differential Ord2 Eos ABS# 0.1 K/ul 08/03/2018 Cbc With Differential Ord2 Baso ABS# 0.0 K/ul 08/03/2018 Comp Metabolic Bme411 NA 135 mEq/L 08/03/2018 Comp Metabolic Ybw840 K 3.5 mEq/L 08/03/2018 Comp Metabolic Yms772 CL 95 mEq/L 08/03/2018 Comp Metabolic Lzm402 CO2 30.0 mEq/L 08/03/2018 Comp Metabolic Kdz055 AN ION GAP 14 08/03/2018 Comp Metabolic Mzy385 GL UCOSE 152 mg/dL 08/03/2018 Comp Metabolic Sqo243 Cr eat 1.2 mg/dL 08/03/2018 Comp Metabolic Lgn708 eG FR 61 ml/min/1.73m2 08/03 Comp Metabolic Hws230 BUN 23 mg/dL 08/03/2018 Comp Metabolic Zet322 B/ C Ratio 19.0 Ratio 08/03/2018 Comp Metabolic Lzt519 CA LCIUM 9.6 mg/dL 08/03/2018 Comp Metabolic Okb889 AL K PHOS 51 U/L 08/03/2018 Comp Metabolic Oyz748 T(SGOT) 20 U/L 08/03/2018 Comp Metabolic Wrz354 AL T(SGPT) 24 U/L 08/03/2018 Comp Metabolic Whk965 BI LI T 0.5 mg/dL 08/03/2018 Comp Metabolic Joq064 AL BUMIN 4.3 g/dL 08/03/2018 Comp Metabolic Yku117 TP RO 6.8 g/dL 08/03/2018 Comp Metabolic Fwl754 GL OB 2.6 g/dL 08/03/2018 Comp Metabolic Abz249 A/ G Ratio 1.7 Ratio 08/03/2018 Comp Metabolic Rui710 Os mo 277 mOsmo 08/03/2018 %Hba1C Lwl099 % HbA1c 42495-8 7.3 % 08/03/2018 %Hba1C Mqr137 Gluc Ave 163 mg/dL 08/03/2018 Cbc With [...] 31.2 pg 05/14/2018 Cbc With Differential Ord2 [place]% 12.2 % 05/14/2018 Cbc With Differential Ord2 [...] 1.81 K/ul 05/14/2018 Cbc With Differential Ord2 [place] ABS# 1.0 K/ul 05/14/2018 Cbc With Differential Ord2 Eos ABS# 0.1 K/ul 05/14/2018 Cbc With Differential Ord2 Baso ABS# 0.0 K/ul 05/14/2018 Ehrlichia Chaffeensis Antibody Igm 203080 EHRLICHIA CHAFFEENSIS IGM < 1:16 04/09/2018 Ehrlichia Chaffeensis Antibody Igg 861834 EHRLICHIA CHAFFEENSIS IGG 1:64 04/09/2018 Irmo Spotted Fever Igg/Igm 62284 3 LOTUS MT SPOTTED FEVER IGM EIA . 04/09/2018 Irmo Spotted Fever Igg/Igm 85680 3 RMSF, IGM 0.36 index 04/09/2018 Irmo Spotted Fever Igg/Igm 77483 3 LOTUS MT SPOTTED FEVER IGG EIA FLEX . 04/09/2018 Irmo Spotted Fever Igg/Igm 45410 3 RMSF, IGG SCREEN-FLEX Negative 04/09/2018 Lymes Disease Total Antibodies With Western Blot Refle x 727227 B. BURGDORFERI, IGG/IGM 0.31 04/07/2018 Lymes Disease Total Antibodies With Western Blot Refle x [id number] INTERPRETATION 04/07/2018 %Hba1C Uom691 % HbA1c 37437-4 7.2 % 03/31/2018 %Hba1C Boi905 Gluc Ave 160 mg/dL 03/31/2018 Lipid Ord30 [...] 31.3 pg 12/22/2017 Cbc With Differential Ord2 [place]% 11.5 % 12/22/2017 Cbc With Differential Ord2 [...] 2.16 K/ul 12/22/2017 Cbc With Differential Ord2 [place] ABS# 1.1 K/ul 12/22/2017 Cbc With Differential Ord2 Eos ABS# 0.1 K/ul 12/22/2017 Cbc With Differential Ord2 Baso ABS# 0.0 K/ul 12/22/2017 Comp Metabolic Osm954 NA 141 mEq/L 12/22/2017 Comp Metabolic Vfk641 K 3.9 mEq/L 12/22/2017 Comp Metabolic Snc937 CL 99 mEq/L 12/22/2017 Comp Metabolic Wef637 CO2 32.0 mEq/L 12/22/2017 Comp Metabolic Eif559 AN ION GAP 14 12/22/2017 Comp Metabolic Jus564 GL UCOSE 152 mg/dL 12/22/2017 Comp Metabolic Jlk374 Cr eat 1.0 mg/dL 12/22/2017 Comp Metabolic Dao683 eG FR 78 ml/min/1.73m2 12/22 Comp Metabolic Hfv812 BUN 27 mg/dL 12/22/2017 Comp Metabolic Uzf744 B/ C Ratio 27.8 Ratio 12/22/2017 Comp Metabolic Bjl588 CA LCIUM 9.7 mg/dL 12/22/2017 Comp Metabolic Lje830 AL K PHOS 56 U/L 12/22/2017 Comp Metabolic Kvx365 T(SGOT) 18 U/L 12/22/2017 Comp Metabolic Dia219 AL T(SGPT) 20 U/L 12/22/2017 Comp Metabolic Xxb803 BI LI T 0.4 mg/dL 12/22/2017 Comp Metabolic Vac351 AL BUMIN 4.2 g/dL 12/22/2017 Comp Metabolic Bmt371 TP RO 6.4 g/dL 12/22/2017 Comp Metabolic Frv687 GL OB 2.2 g/dL 12/22/2017 Comp Metabolic Hdr033 A/ G Ratio 1.9 Ratio 12/22/2017 Comp Metabolic Hoo364 Os mo 289 mOsmo 12/22/2017 %Hba1C Rhi847 % HbA1c 00924-2 7.1 % 12/22/2017 %Hba1C Drb734 Gluc Ave 157 mg/dL 12/22/2017 Cbc With [...] 31.5 pg 09/22/2017 Cbc With Differential Ord2 [place]% 8.4 % 09/22/2017 Cbc With Differential Ord2 [...] 1.83 K/ul 09/22/2017 Cbc With Differential Ord2 [place] ABS# 0.9 K/ul 09/22/2017 Cbc With Differential Ord2 Eos ABS# 0.0 K/ul 09/22/2017 Cbc With Differential Ord2 Baso ABS# 0.0 K/ul 09/22/2017 %Hba1C Gxm756 % HbA1c 84503-3 6.9 % 09/22/2017 %Hba1C New391 Gluc Ave 151 mg/dL 09/22/2017 Tsh Ord6 [...] 31.6 pg 06/17/2017 Cbc With Differential Ord2 [place]% 11.1 % 06/17/2017 Cbc With Differential Ord2 [...] 2.35 K/ul 06/17/2017 Cbc With Differential Ord2 [place] ABS# 1.2 K/ul 06/17/2017 Cbc With Differential Ord2 Eos ABS# 0.1 K/ul 06/17/2017 Cbc With Differential Ord2 Baso ABS# 0.0 K/ul 06/17/2017 %Hba1C Eej639 % HbA1c 39770-6 7.3 % 06/17/2017 %Hba1C Cqg989 Gluc Ave 163 mg/dL 06/17/2017 Comp Metabolic Ymn962 NA 137 mEq/L 06/17/2017 Comp Metabolic Zlp475 K 3.8 mEq/L 06/17/2017 Comp Metabolic Cgy028 CL 98 mEq/L 06/17/2017 Comp Metabolic Bzv234 CO2 30.0 mEq/L 06/17/2017 Comp Metabolic Bhk883 AN ION GAP 13 06/17/2017 Comp Metabolic Rmm035 GL UCOSE 157 mg/dL 06/17/2017 Comp Metabolic Nuc149 Cr eat 1.0 mg/dL 06/17/2017 Comp Metabolic Ery466 eG FR 76 ml/min/1.73m2 06/17 Comp Metabolic Ghq363 BUN 18 mg/dL 06/17/2017 Comp Metabolic Lkp181 B/ C Ratio 18.0 Ratio 06/17/2017 Comp Metabolic Kqa918 CA LCIUM 9.8 mg/dL 06/17/2017 Comp Metabolic Din515 AL K PHOS 57 U/L 06/17/2017 Comp Metabolic Fdh489 T(SGOT) 19 U/L 06/17/2017 Comp Metabolic Lte161 AL T(SGPT) 23 U/L 06/17/2017 Comp Metabolic Zxn651 BI LI T 0.6 mg/dL 06/17/2017 Comp Metabolic Itv355 AL BUMIN 4.4 g/dL 06/17/2017 Comp Metabolic Rym301 TP RO 6.8 g/dL 06/17/2017 Comp Metabolic Jld158 GL OB 2.4 g/dL 06/17/2017 Comp Metabolic Iig194 A/ G Ratio 1.9 Ratio 06/17/2017 Comp Metabolic Llq699 Os mo 279 mOsmo 06/17/2017 Review of [...] time 10/15/2018 None Full Exam - General 1995 Constitutional general appearance Overall: well developed 08/05/2018 None Full Exam - General 1995 Constitutional [...] 05/14/2018 None Full Exam - General 1995 Ears/Nose/Throat otoscopic exam Overall: external auditory canals clear 05/14/2018 None Full Exam - General 1995 Ears/Nose/Throat lips/teeth/gingiva Overall: benign lips 05/14/2018 None [...] affect 01/27/2018 None Full Exam - General 1995 Constitutional general appearance Overall: well developed 01/21/2018 None Full Exam - General 1994 Constitutional general appearance Overall: in no acute distress 01/21/2018 None Full Exam - General 1995 Constitutional general appearance Overall: well nourished 01/21/2018 [...] skin Location: scalp 10/08/2017 AK - right mandaen, mid fo rehead/scalp, left posterior neck - [...] skin Location: scalp 08/27/2017 [place] - right mandaen, mid fo rehead/scalp - cryotherapy to area, [...] CPT-4: J3301 10/15/2018 THER/PROPH/DIAG INJ SC/IM CPT-4: 19606 10/15/2018 ADMIN INFLUENZA VIRU S VAC CPT-4: G0008 06/24/2018 FLU VACC PRSV FREE I NC ANTIG CPT-4: 61388 06/24/2018 GLUC MONITOR CONT PH YS I&R CPT-4: 09854 01/27/2018 PPPS, SUBSEQ VISIT CPT- 4: G0439 01/21/2018 GLUCOSE MONITORING CONT CPT-4: 20561 01/06/2018 ADMIN INFLUENZA VIRU S VAC CPT-4: G0008 06/09/2017 FLU VACC PRSV FREE I NC ANTIG CPT-4: 00833 06/09/2017 Vital Signs Date Vital 11/16/2018 Blood Pressure 1: 154/90 Code: 8480-6 BMI: 33.1 Code: 19831-4 Heart Rate 1: 84 bpm Height: 5'8" SpO2: 96% Weight: 218 lbs 10/15/2018 Blood Pressure 1: 140/70 Code: 8480-6 BMI: 33.5 Code: 23312-5 Heart Rate 1: 72 bpm Height: 5'8" SpO2: 98% Weight: 220 lbs 08/05/2018 Blood Pressure 1: 132/56 Code: 8480-6 BMI: 34.5 Code: 77419-7 Heart Rate 1: 65 bpm Height: 5'8" SpO2: 95% Weight: 227 lbs 06/22/2018 Blood Pressure 1: 144/86 Code: 8480-6 BMI: 36.0 Code: 22320-7 Heart Rate 1: 74 bpm Height: 5'8" SpO2: 98% Weight: 237 lbs 05/14/2018 Blood Pressure 1: 132/72 Code: 8480-6 Height: Weight: 04/27/2018 Blood Pressure 1: 148/78 Code: 8480-6 BMI: 35.6 Code: 79000-8 Heart Rate 1: 77 bpm Height: 5'8" SpO2: 97% Weight: 234 lbs 04/03/2018 Blood Pressure 1: 156/80 Code: 8480-6 BMI: 35.4 Code: 09848-8 Heart Rate 1: 70 bpm Height: 5'8" SpO2: 97% Weight: 233 lbs 01/27/2018 BMI: 35.6 Code: 19622-6 Heart Rate 1: 86 bpm Height: 5'8" SpO2: 98% Weight: 234 lbs 01/21/2018 Heigh t: Weight: 01/06/2018 Heigh t: Weight: 12/31/2017 Blood Pressure 1: 140/86 Code: 8480-6 BMI: 34.2 Code: 44970-3 Heart Rate 1: 80 bpm Height: 5'8" SpO2: 98% Weight: 225 lbs 10/08/2017 Blood Pressure 1: 152/74 Code: 8480-6 BMI: 34.2 Code: 65116-2 Heart Rate 1: 67 bpm Height: 5'8" SpO2: 98% Weight: 225 lbs 08/27/2017 Blood Pressure 1: 144/82 Code: 8480-6 BMI: 34.2 Code: 08841-4 Heart Rate 1: 70 bpm Height: 5'8" SpO2: 98% Weight: 225 lbs 06/10/2017 Blood Pressure 1: 150/84 Code: 8480-6 BMI: 35.0 Code: 16267-6 Heart Rate 1: 67 bpm Height: 5'8" SpO2: 98% Weight: 230 lbs 05/20/2017 Blood Pressure 1: 146/76 Code: 8480-6 BMI: 35.3 Code: 82935-2 Heart Rate 1: 70 bpm Height: 5'8" [...] Encounters Encounter Performer Loca tion Codes Date 04645 EST. PATIENT, LEVEL III Diagnosis: Type 2 diabetes mellitus with hyperglycemia[ICD10: E11.65] Diagnosis: Essential (primary) hypertension[ICD10: I10] Laney Guerrero MD, [facility] CPT-4: 44851 11/16/2018 74689 EST. PATIENT, LEVEL IV Diagnosis: Other acute sinusitis[ICD10: J01.80] Diagnosis: Other allergic rhinitis[ICD10: J30.89] Laney Guerrero MD [facility] CPT-4: 70480 10/15/2018 26786 EST. PATIENT, LEVEL III Diagnosis: Type 2 diabetes mellitus with hyperglycemia[ICD10: E11.65] Laney Guerrero MD, [facility] CPT-4: 53235 08/05/2018 76906 EST. PATIENT, LEVEL III Diagnosis: Type 2 diabetes mellitus with hyperglycemia[ICD10: E11.65] Laney Guerrero MD, [facility] CPT-4: 16378 06/22/2018 14645 EST. PATIENT, LEVEL IV Diagnosis: Diplopia[ICD10: H53.2] Diagnosis: Other specified anemias[ICD10: D64.89] Laney Guerrero MD, [facility] CPT-4: 93984 05/14/2018 58136 EST. PATIENT, LEVEL III Diagnosis: Benign paroxysmal vertigo, bilateral[ICD10: H81.13] Diagnosis: Other allergic rhinitis[ICD10: J30.89] Laney Guerrero MD, [facility] CPT-4: 52971 04/27/2018 41085 EST. PATIENT, LEVEL III Diagnosis: Type 2 diabetes mellitus with hyperglycemia[ICD10: E11.65] Diagnosis: Other fatigue[ICD10: R53.83] Diagnosis: Other malaise[ICD10: R53.81] Diagnosis: Bitten or stung by nonvenomous insect and other nonvenomous arthropods, initial encounter[ICD10: W57.XXXA] Diagnosis: Cellulitis of right upper limb[ICD10: L03.113] Diagnosis: Mixed hyperlipidemia[ICD10: E78.2] Laney Guerrero MD, [facility] CPT-4: 97604 04/03/2018 ([id number]) 41257 EST. P ATIENT, LEVEL III Diagnosis: Type 2 diabetes mellitus with hyperglycemia[ICD10: E11.65] Laney Guerrero MD, [facility] CPT-4: 75045 01/27/2018 ([id number]) Miscellaneou s no charge Diagnosis: Type 2 diabetes mellitus with hyperglycemia[ICD10: E11.65] Laney Guerrero MD, [facility] CPT-4: 35345 01/13/2018 42217 EST. PATIENT, LEVEL III Diagnosis: Type 2 diabetes mellitus with hyperglycemia[ICD10: E11.65] Diagnosis: Essential (primary) hypertension[ICD10: I10] Diagnosis: Mixed hyperlipidemia[ICD10: E78.2] Laney Guerrero MD, [facility] CPT-4: 79964 12/31/2017 06210 EST. PATIENT, LEVEL III Diagnosis: Type 2 diabetes mellitus with hyperglycemia[ICD10: E11.65] Diagnosis: Essential (primary) hypertension[ICD10: I10] Diagnosis: Mixed hyperlipidemia[ICD10: E78.2] Diagnosis: Actinic keratosis[ICD10: L57.0] Laney Guerrero MD, [facility] CPT-4: 49762 10/08/2017 72341 EST. PATIENT, LEVEL III Diagnosis: Type 2 diabetes mellitus with hyperglycemia[ICD10: E11.65] Diagnosis: Essential (primary) hypertension[ICD10: I10] Diagnosis: Mixed hyperlipidemia[ICD10: E78.2] Diagnosis: Actinic keratosis[ICD10: L57.0] Laney Guerrero MD, [facility] CPT-4: 51488 08/27/2017 43390 EST. PATIENT, LEVEL III Diagnosis: Type 2 diabetes mellitus with hyperglycemia[ICD10: E11.65] Diagnosis: Essential (primary) hypertension[ICD10: I10] Diagnosis: Mixed hyperlipidemia[ICD10: E78.2] Laney Guerrero MD, [facility] CPT-4: 04989 06/25/2017 ([id number]) 95617 EST. 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 11/16/2018 [phone] [facility] ([facility] min) Moderate 11/16/2018 [facility]ment[phone] [facility] ([facility] min) Complex 11/16/2018 Patient Education: Patient Medication Summary Completed 11/16/2018 Patient Education: Diabetes Completed 11/16/2018 App[facility]ment[facility] [phone] [facility] (15 min) Moderate 11/02/2018 Patient Education: [...] spray. 10/15/2018 Appointment: Laney Luther WPtel: [phone] [facility] (30 min) Complex 10/15/2018 Patient Education: [...] control. 08/05/2018 Appointment: Laney Luther WPtel: [phone] [facility] (15 min) Moderate 08/05/2018 Patient Education: Patient Medication Summary Completed 08/05/2018 Appointment: Laney Luther WPtel: [phone] [facility] (15 min) Moderate 07/17/2018 Referral: [...] glucose control. 06/22/2018 Appointment: Laney Luther WPtel: [phone] [facility] (15 min) Moderate 06/22/2018 Patient Education: Patient Medication Summary Completed 06/22/2018 Patient Education: Diabetes Completed 06/22/2018 Care Plan: Referral Order SNOMED-CT : [id number] Pending 06/22/2018 Referral: [facility] Referral Initiated 06/02/2018 Appointment: Nurse Visit 05/18/2018 [...] or concerns. 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 04/03/2018 Appointment: [facility] Luther [facility] [phone] [facility] (15 min) Moderate 04/03/2018 Patient Education: Patient Medication Summary Completed 04/03/2018 Appointment: [facility] Luther [facility] [phone] [facility] (30 min) Complex 03/31/2018 Patient Education: [...] control. 01/27/2018 Appointment: [facility] Luther [facility] [phone] [facility] ([facility] min) Complex 01/27/2018 Patient Education: [...] Completed 01/21/2018 Appointment: Lane[facility] Luther [facility]Ptel[facility] [phone] [id number] (15 min) Moderate 01/13/2018 Patient Education: [...] greater blood glucose control. 01/06/2018 Appointment: Laney Lutherl: [id number] (15 min) Moderate 01/06/2018 Patient Education: Patient Medication Summary Completed 01/06/2018 Visit Plan: Hypertension - well yeimi jaimes - continue with current medications, continue with [...] liver response to medications. 12/31/2017 Appointment: Laney Lutherl: [phone] [facility] [id number] [place] 12/31/2017 Patient Education: [...] concerns. 10/08/2017 Appointment: [id number] ([facility] 10/08/2017 Patient Education: Patient Medication Summary Completed 10/08/2017 Appointment: Lane[facility] Luther [id number] ([facility] min) Moderate 10/07/2017 Visit Plan: [...] acute concerns. 08/27/2017 Appointment: Laney Luther WPtel: [id number] ([facility] 08/27/2017 Patient Education: [...] medications. 06/25/2017 Appointment: Laney Luther WPtel: [phone] [facility] (30 min) Complex 06/25/2017 Patient Education: Patient Medication Summary Completed 06/25/2017 Appointment: Debra Ramirez WPtel: [phone] [phone] (30 min) Complex 06/24/2017 Visit Plan: Hypertension [...] medications. 06/10/2017 Appointment: Debra Ramirez WPtel: [phone] [phone] (30 min) Complex 06/10/2017 Patient Education: Patient [...] glucose control. 05/20/2017 Appointment: Laney Luther WPtel: [address] [place], [place] [phone] New Patient 05/20/2017 Patient Education: Patient Medication Summary Completed 05/20/2017 [id number] Ref[facility] Initiated Referral: Kevin Cuevas Referral Initiated [...] blood glucose control. GET RECENT LABS FROM [facility] FAST[facility] NEXT WEEK UNLESS [...]
--- OUTSIDE RECORDS SUMMARY | 2020-02-09 07:10 | XMS REPORT | CCD ---
Author Author Gunnar Luther Organization Karo Guerrero MD, [facility] Address [address] [place] [address] Phone Care Team Providers Care Turn Down Man Name Role Phone PP Unavailable CCM Unavailable Summary Purpose Interface Exchange Insurance Providers Payer name Policy type / Coverage type Covered democrat ID Effective Begin Date Effective End Date WPS Medicare Part B Medicare Part B [id number] Unknown Aetna Medicare Part B AH [id number] Unknown Cigna Medicare Part B 80 [id number] Unknown Family history Sister Diagnosis Age At [...] ed reddy 05/20/[address]: 048375334 Never smoker 05/20/[address]: 731759881 Never drinks alcohol 05/20/2017 Allergies, Adverse Reactions, [...] 50 mg-chlor thalidone 25 mg tablet RxNorm: 803188 1 TABLET(S) PO DAILY 12/17/2018 12/11/2019 Ac tive PLEASE SEND REFILL REQUESTS ELECTRONICAL LY metformin ER 750 mg tablet,extended release 24 hr RxNorm: 166925 2 TABLET(S) PO DAILY 12/17/2018 06/14/2019 Ac tive metformin ER 750 mg tablet,extended release 24 hr RxNorm: 423083 2 TABLET(S) PO DAILY 11/13/2018 12/16/2018 Inactive Tradjenta 5 mg tablet RxNorm: 3863975 TAKE 1 TABLET BY MOUTH DAILY 10/16/2018 03/14/2019 Ac tive Kenalog 40 mg/mL benitez pension for injection RxNorm: 1515848 1 Milliliter(s) Inj 10/15/2018 10/15/2018 In active Tradjenta 5 mg tablet RxNorm: 0225239 TAKE 1 TABLET BY MOUTH DAILY 09/18/2018 02/14/2019 Ac tive metformin ER 750 mg tablet,extended release 24 hr RxNorm: 681868 2 TABLET(S) PO DAILY 07/13/2018 11/09/2018 Inactive Tradjenta 5 mg tablet RxNorm: 0891372 TAKE 1 TABLET BY MOUTH DAILY 07/02/2018 09/17/2018 In active One Touch Test strips RxNorm: 1 Miscellaneous BID 06/29/2018 07/28/2018 Inactive Zyrtec 10 mg tablet RxNorm: 4517269 1 Tablet(s) PO daily 04/27/2018 05/26/2018 Inactive doxycycline hyclate 100 mg capsule RxNorm: 7858579 1 Capsule(s) PO BID 04/03/2018 04/12/2018 In active meclizine 25 mg tablet RxNorm: 775579 1 Tablet(s) PO TID as needed Dizziness 04/03/2018 04/07/2018 In active metformin ER 750 mg tablet,extended release 24 hr RxNorm: 647461 2 TABLET(S) PO DAILY 02/03/2018 06/02/2018 Inactive glimepiride 2 mg tablet RxNorm: 954756 TAKE 1 TABLET BY MOUTH TWICE DAILY FOR D IABETES 01/13/2018 04/07/2019 Active glimepiride 2 mg tablet RxNorm: 740848 TAKE 1 TABLET BY MOUTH TWICE DAILY FOR D IABETES 01/11/2018 01/05/2019 Active diltiazem CD 360 mg capsule,extended release 24 hr RxNorm: 073091 1 CAPSULE(S) PO QHS 01/02/2018 12/27/2018 Ac tive atenolol 50 mg-chlor thalidone 25 mg tablet RxNorm: 027609 1 Tablet(s) PO daily 12/18/2017 12/12/2018 In active PLEASE SEND REFILL REQUESTS ELECTRONICAL LY Tradjenta 5 mg tablet RxNorm: 5873912 TAKE 1 TABLET BY MOUTH DAILY 12/15/2017 05/13/2018 In active metformin ER 750 mg tablet,extended release 24 hr RxNorm: 093747 2 TABLET(S) PO DAILY 11/05/2017 12/16/2018 Inactive metformin ER 750 mg tablet,extended release 24 hr RxNorm: 270009 2 TABLET(S) PO DAILY 11/03/2017 02/02/2018 Inactive atorvastatin 20 mg t ablet RxNorm: 121122 TAKE 1 TABLET BY MOUT H EVERY NIGHT AT BEDTIME FOR CHOLESTEROL 08/28/2017 08/22/2018 Inactive Zithromax Z-Maury 250 mg tablet RxNorm: 460703 1 Tablet(s) PO UD 08/15/2017 04/13/2018 Inactive Tamiflu 75 mg capsule RxNorm: 215677 1 Capsule(s) PO BID 08/15/2017 08/14/2017 Inactive Tamiflu 75 mg capsule RxNorm: 017919 1 Capsule(s) PO BID 08/15/2017 08/19/2017 Inactive Tradjenta 5 mg tablet RxNorm: 4661900 TAKE 1 TABLET BY MOUTH DAILY 08/12/2017 12/09/2017 In active metformin ER 750 mg tablet,extended release 24 hr RxNorm: 311876 TAKE 2 TABLET BY MOUT H ONCE A DAY DIRECTED 08/08/2017 12/16/2018 Inactive SAVINGS FOR NON-COVERED MED ICATIONS Claims: BIN: [id number], PCN: [id number], GROUP: [id number], Patient ID: [id number] Phone; Questions: [facility] [phone] metformin ER 750 mg tablet,extended release 24 hr RxNorm: 198625 2 Tablet(s) PO daily 08/07/2017 08/06/2017 Inactive metformin ER 750 mg tablet,extended release 24 hr RxNorm: 002597 2 Tablet(s) PO daily 08/07/2017 11/02/2017 Inactive glimepiride 2 mg tablet RxNorm: 467311 TAKE 1 TABLET BY MOUTH TWICE DAILY FOR D IABETES 07/18/2017 01/10/2018 Inactive diltiazem CD 360 mg capsule,extended release 24 hr RxNorm: 155364 1 Capsule(s) PO Q 07/03/2017 12/29/2017 Inactive One Touch Test strips RxNorm: 1 Miscellaneous daily 05/30/2017 06/28/2017 Inactive One Touch Test strips RxNorm: 1 Miscellaneous daily 05/30/2017 05/29/2017 Inactive iron gluconate-B cmp lx-potassium iodide-minerals oral RxNorm: 84822 oral No Start Date Active Super B Complex 100 tablet RxNorm: 1 Tablet(s) PO daily No Start Date Active Glucosamine Chondroi tin Maximum Strength oral RxNorm: 4845 oral No Start Date Active garlic 1,000 mg capsule RxNorm: 801926 1 Capsule(s) PO BID No Start Date Active vitamin E (dl, aceta te) 400 unit capsule RxNorm: 909148 1 Capsule(s) PO daily No Start Date Active beta carotene 25,000 unit tablet RxNorm: 259307 1 Tablet(s) PO daily No Start Date Active rutin 500 mg tablet RxNorm: 570553 1/2 Tablet(s) PO daily No Start Date Active Calcium 600 + Minera ls oral RxNorm: 220012 oral No S tart Date Active Vitamin D3 1,000 uni t tablet RxNorm: 309362 1 Tablet(s) PO daily No Start Date Active Vitamin C 500 mg tablet RxNorm: 359522 1 Tablet(s) PO daily No Start Date Active acidophilus 25 susanne on cell-pectin, citrus 100 mg tablet RxNorm: 044034 1 Tablet(s) PO BID No Start Date Active Zinc and C oral RxNorm: oral No Start Date Active aspirin 81 mg chewab le tablet RxNorm: 634003 1 Tablet(s) PO QPM No Start Date Active Zegerid OTC 20 mg-1. 1 gram capsule RxNorm: 324975 1 Capsule(s) PO daily No Start Date Active magnesium 250 mg tablet RxNorm: 1 Tablet(s) PO daily No Start Date Active flaxseed oil 1,000 m g capsule RxNorm: 799468 1 Capsule(s) PO BID No Start Date Active milk thistle 175 mg tablet RxNorm: 368757 1 Tablet(s) PO daily No Start Date Active metformin ER 750 mg tablet,extended release 24 hr RxNorm: 946529 2 Tablet(s) PO daily No Start Date 08/06/2017 Inactive atorvastatin 20 mg t ablet RxNorm: 781625 1 Tablet(s) PO daily No Start Date 08/27/2017 Inactive Tradjenta 5 mg tablet RxNorm: 1353847 1 Tablet(s) PO daily No Start Date 08/11/2017 Inactive diltiazem ER 300 mg tablet,extended release 24 hr RxNorm: 965517 1 Tablet(s) PO daily No Start Date 05/18/2017 Inactive glimepiride 2 mg tablet RxNorm: 766528 1 Tablet(s) PO BID No Start Date 07/17/2017 Inactive Zithromax Z-Maury 250 mg tablet RxNorm: 393662 1 Tablet(s) PO UD No Start Date 08/14/2017 Inactive atenolol 50 mg-chlor thalidone 25 mg tablet RxNorm: 661265 1 Tablet(s) PO daily No Start Date 12/17/2017 Inactive diltiazem CD 360 mg capsule,extended release 24 hr RxNorm: 959075 1 Capsule(s) PO QHS No Start Date 07/02/2017 Inactive Medication Administered Medication Codes Instruc tions Start Date Status Kenalog 40 mg/mL suspension for injection RxNorm: 8938190 1Milliliter 10/15/2018 N o longer Active Immunizations [...] Item Item Code Result Date Comp Metabolic Ixk780 NA 137 mEq/L 11/09/2018 Comp Metabolic Rrp004 K 4.4 mEq/L 11/09/2018 Comp Metabolic Yqj978 CL 97 mEq/L 11/09/2018 Comp Metabolic Ucd918 CO2 30.0 mEq/L 11/09/2018 Comp Metabolic Aqw926 AN ION GAP 14 11/09/2018 Comp Metabolic Axk597 GL UCOSE 122 mg/dL 11/09/2018 Comp Metabolic Okj547 Cr eat 1.1 mg/dL 11/09/2018 Comp Metabolic Qtg996 eG FR 70 ml/min/1.73m2 11/09 Comp Metabolic Yzv113 BUN 21 mg/dL 11/09/2018 Comp Metabolic Sjb131 B/ C Ratio 19.6 Ratio 11/09/2018 Comp Metabolic Xki670 CA LCIUM 10.2 mg/dL 11/09/2018 Comp Metabolic Nrf765 AL K PHOS 45 U/L 11/09/2018 Comp Metabolic Nxf741 T(SGOT) 19 U/L 11/09/2018 Comp Metabolic Qcl707 AL T(SGPT) 24 U/L 11/09/2018 Comp Metabolic Xbr192 BI LI T 0.5 mg/dL 11/09/2018 Comp Metabolic Qjz565 AL BUMIN 4.4 g/dL 11/09/2018 Comp Metabolic Tzf197 TP RO 6.7 g/dL 11/09/2018 Comp Metabolic Ibu592 GL OB 2.3 g/dL 11/09/2018 Comp Metabolic Wny086 A/ G Ratio 1.9 Ratio 11/09/2018 Comp Metabolic Bcj344 Os mo 278 mOsmo 11/09/2018 Cbc With [...] 32.0 pg 11/09/2018 Cbc With Differential Ord2 Clare% 9.8 % 11/09/2018 Cbc With Differential Ord2 [...] 2.13 K/ul 11/09/2018 Cbc With Differential Ord2 Clare ABS# 0.8 K/ul 11/09/2018 Cbc With Differential Ord2 Eos ABS# 0.1 K/ul 11/09/2018 Cbc With Differential Ord2 Baso ABS# 0.0 K/ul 11/09/2018 %Hba1C Iag072 % HbA1c 29751-5 6.7 % 11/09/2018 %Hba1C Pei743 Gluc Ave 146 mg/dL 11/09/2018 Tsh Ord6 [...] 31.4 pg 08/03/2018 Cbc With Differential Ord2 Clare% 11.9 % 08/03/2018 Cbc With Differential Ord2 [...] 1.62 K/ul 08/03/2018 Cbc With Differential Ord2 Clare ABS# 0.9 K/ul 08/03/2018 Cbc With Differential Ord2 Eos ABS# 0.1 K/ul 08/03/2018 Cbc With Differential Ord2 Baso ABS# 0.0 K/ul 08/03/2018 Comp Metabolic Rpo132 NA 135 mEq/L 08/03/2018 Comp Metabolic Fdd895 K 3.5 mEq/L 08/03/2018 Comp Metabolic Vvv794 CL 95 mEq/L 08/03/2018 Comp Metabolic Ksq986 CO2 30.0 mEq/L 08/03/2018 Comp Metabolic Jrq643 AN ION GAP 14 08/03/2018 Comp Metabolic Fki670 GL UCOSE 152 mg/dL 08/03/2018 Comp Metabolic Iqt810 Cr eat 1.2 mg/dL 08/03/2018 Comp Metabolic Qtf242 eG FR 61 ml/min/1.73m2 08/03 Comp Metabolic Ruf344 BUN 23 mg/dL 08/03/2018 Comp Metabolic Wjj988 B/ C Ratio 19.0 Ratio 08/03/2018 Comp Metabolic Oii180 CA LCIUM 9.6 mg/dL 08/03/2018 Comp Metabolic Das903 AL K PHOS 51 U/L 08/03/2018 Comp Metabolic Nfu853 T(SGOT) 20 U/L 08/03/2018 Comp Metabolic Rvn869 AL T(SGPT) 24 U/L 08/03/2018 Comp Metabolic Tam690 BI LI T 0.5 mg/dL 08/03/2018 Comp Metabolic Nty923 AL BUMIN 4.3 g/dL 08/03/2018 Comp Metabolic Brt121 TP RO 6.8 g/dL 08/03/2018 Comp Metabolic Ojh279 GL OB 2.6 g/dL 08/03/2018 Comp Metabolic Xni081 A/ G Ratio 1.7 Ratio 08/03/2018 Comp Metabolic Nae003 Os mo 277 mOsmo 08/03/2018 %Hba1C Fxo120 % HbA1c 91386-1 7.3 % 08/03/2018 %Hba1C Cuo644 Gluc Ave 163 mg/dL 08/03/2018 Cbc With [...] 31.2 pg 05/14/2018 Cbc With Differential Ord2 Clare% 12.2 % 05/14/2018 Cbc With Differential Ord2 [...] 1.81 K/ul 05/14/2018 Cbc With Differential Ord2 Clare ABS# 1.0 K/ul 05/14/2018 Cbc With Differential Ord2 Eos ABS# 0.1 K/ul 05/14/2018 Cbc With Differential Ord2 Baso ABS# 0.0 K/ul 05/14/2018 Ehrlichia Chaffeensis Antibody Igm [id number] EHRLICHIA CHAFFEENSIS IGM < 1:16 04/09/2018 Ehrlichia Chaffeensis Antibody Igg 195920 EHRLICHIA CHAFFEENSIS IGG 1:64 04/09/2018 [place] Spotted Fever Igg/Igm 76687 3 LOTUS MT SPOTTED FEVER IGM EIA . 04/09/2018 [place] Spotted Fever Igg/Igm 62484 3 RMSF, IGM 0.36 index 04/09/2018 [place] Spotted Fever Igg/Igm 65302 3 LOTUS MT SPOTTED FEVER IGG EIA FLEX . 04/09/2018 [place] Spotted Fever Igg/Igm 53048 3 RMSF, IGG SCREEN-FLEX Negative 04/09/2018 Lymes Disease Total Antibodies With Western Blot Refle x 642181 B. BURGDORFERI, IGG/IGM 0.31 04/07/2018 Lymes Disease Total Antibodies With Western Blot Refle x 327196 INTERPRETATION 04/07/2018 %Hba1C Obv147 % HbA1c 31562-4 7.2 % 03/31/2018 %Hba1C Hoc760 Gluc Ave 160 mg/dL 03/31/2018 Lipid Ord30 [...] 31.3 pg 12/22/2017 Cbc With Differential Ord2 Clare% 11.5 % 12/22/2017 Cbc With Differential Ord2 [...] 2.16 K/ul 12/22/2017 Cbc With Differential Ord2 Clare ABS# 1.1 K/ul 12/22/2017 Cbc With Differential Ord2 Eos ABS# 0.1 K/ul 12/22/2017 Cbc With Differential Ord2 Baso ABS# 0.0 K/ul 12/22/2017 Comp Metabolic Ekx873 NA 141 mEq/L 12/22/[address] K 3.9 mEq/L 12/22/2017 Comp Metabolic Xak158 CL 99 mEq/L 12/22/2017 Comp Metabolic Wbn940 CO2 32.0 mEq/L 12/22/2017 Comp Metabolic Ihl341 AN ION GAP 14 12/22/2017 Comp Metabolic Olx075 GL UCOSE 152 mg/dL 12/22/2017 Comp Metabolic Sdl723 Cr eat 1.0 mg/dL 12/22/2017 Comp Metabolic Hbt394 eG FR 78 ml/min/1.73m2 12/22 Comp Metabolic Doy448 BUN 27 mg/dL 12/22/2017 Comp Metabolic Avq033 B/ C Ratio 27.8 Ratio 12/22/2017 Comp Metabolic Dfi425 CA LCIUM 9.7 mg/dL 12/22/2017 Comp Metabolic Jmf953 AL K PHOS 56 U/L 12/22/2017 Comp Metabolic Rck022 T(SGOT) 18 U/L 12/22/2017 Comp Metabolic Daf216 AL T(SGPT) 20 U/L 12/22/2017 Comp Metabolic Sek730 BI LI T 0.4 mg/dL 12/22/2017 Comp Metabolic Mwt215 AL BUMIN 4.2 g/dL 12/22/2017 Comp Metabolic Yhi869 TP RO 6.4 g/dL 12/22/2017 Comp Metabolic Hkt332 GL OB 2.2 g/dL 12/22/2017 Comp Metabolic Blt699 A/ G Ratio 1.9 Ratio 12/22/2017 Comp Metabolic Nwa753 Os mo 289 mOsmo 12/22/2017 %Hba1C Lgt655 % HbA1c 65568-1 7.1 % 12/22/2017 %Hba1C Sfm372 Gluc Ave 157 mg/dL 12/22/2017 Cbc With [...] 31.5 pg 09/22/2017 Cbc With Differential Ord2 Clare% 8.4 % 09/22/2017 Cbc With Differential Ord2 [...] 1.83 K/ul 09/22/2017 Cbc With Differential Ord2 Clare ABS# 0.9 K/ul 09/22/2017 Cbc With Differential Ord2 Eos ABS# 0.0 K/ul 09/22/2017 Cbc With Differential Ord2 Baso ABS# 0.0 K/ul 09/22/2017 %Hba1C Aem797 % HbA1c 59885-8 6.9 % 09/22/2017 %Hba1C Sup819 Gluc Ave 151 mg/dL 09/22/2017 Tsh Ord6 [...] 31.6 pg 06/17/2017 Cbc With Differential Ord2 Clare% 11.1 % 06/17/2017 Cbc With Differential Ord2 [...] 2.35 K/ul 06/17/2017 Cbc With Differential Ord2 Clare ABS# 1.2 K/ul 06/17/2017 Cbc With Differential Ord2 Eos ABS# 0.1 K/ul 06/17/2017 Cbc With Differential Ord2 Baso ABS# 0.0 K/ul 06/17/2017 %Hba1C Acb034 % HbA1c 22576-4 7.3 % 06/17/2017 %Hba1C Kap449 Gluc Ave 163 mg/dL 06/17/2017 Comp Metabolic Bqs928 NA 137 mEq/L 06/17/2017 Comp Metabolic Rna475 K 3.8 mEq/L 06/17/2017 Comp Metabolic Jyw461 CL 98 mEq/L 06/17/2017 Comp Metabolic Wgr999 CO2 30.0 mEq/L 06/17/2017 Comp Metabolic Gzu016 AN ION GAP 13 06/17/2017 Comp Metabolic Rny982 GL UCOSE 157 mg/dL 06/17/2017 Comp Metabolic Kqn631 Cr eat 1.0 mg/dL 06/17/2017 Comp Metabolic Pmk907 eG FR 76 ml/min/1.73m2 06/17 Comp Metabolic Imc921 BUN 18 mg/dL 06/17/2017 Comp Metabolic Dvk303 B/ C Ratio 18.0 Ratio 06/17/2017 Comp Metabolic Mrn312 CA LCIUM 9.8 mg/dL 06/17/2017 Comp Metabolic Heh470 AL K PHOS 57 U/L 06/17/2017 Comp Metabolic Xdo940 T(SGOT) 19 U/L 06/17/2017 Comp Metabolic Jrq678 AL T(SGPT) 23 U/L 06/17/2017 Comp Metabolic Wkn195 BI LI T 0.6 mg/dL 06/17/2017 Comp Metabolic Bxo675 AL BUMIN 4.4 g/dL 06/17/2017 Comp Metabolic Tga599 TP RO 6.8 g/dL 06/17/2017 Comp Metabolic Ndm319 GL OB 2.4 g/dL 06/17/2017 Comp Metabolic Txs463 A/ G Ratio 1.9 Ratio 06/17/2017 Comp Metabolic Dcz024 Os mo 279 mOsmo 06/17/2017 Review of [...] skin Location: scalp 10/08/2017 [place] - right uatsdin, mid fo rehead/scalp, left posterior neck - [...] skin Location: scalp 08/27/2017 [place] - right uatsdin, mid fo rehead/scalp - cryotherapy to area, [...] CPT-4: J3301 10/15/2018 THER/PROPH/DIAG INJ SC/IM CPT-4: 27179 10/15/2018 ADMIN INFLUENZA VIRU S VAC CPT-4: G0008 06/24/2018 FLU VACC PRSV FREE I NC ANTIG CPT-4: 95305 06/24/2018 GLUC MONITOR CONT PH YS I&R CPT-4: 28419 01/27/2018 PPPS, SUBSEQ VISIT CPT- 4: G0439 01/21/2018 GLUCOSE MONITORING CONT CPT-4: 13543 01/06/2018 ADMIN INFLUENZA VIRU S VAC CPT-4: G0008 06/09/2017 FLU VACC PRSV FREE I NC ANTIG CPT-4: 77048 06/09/2017 Vital Signs Date Vital 11/16/2018 Blood Pressure 1: 154/90 Code: 8480-6 BMI: 33.1 Code: 56254-7 Heart Rate 1: 84 bpm Height: 5'8" SpO2: 96% Weight: 218 lbs 10/15/2018 Blood Pressure 1: 140/70 Code: 8480-6 BMI: 33.5 Code: 16467-6 Heart Rate 1: 72 bpm Height: 5'8" SpO2: 98% Weight: 220 lbs 08/05/2018 Blood Pressure 1: 132/56 Code: 8480-6 BMI: 34.5 Code: 35850-9 Heart Rate 1: 65 bpm Height: 5'8" SpO2: 95% Weight: 227 lbs 06/22/2018 Blood Pressure 1: 144/86 Code: 8480-6 BMI: 36.0 Code: 53626-1 Heart Rate 1: 74 bpm Height: 5'8" SpO2: 98% Weight: 237 lbs 05/14/2018 Blood Pressure 1: 132/72 Code: 8480-6 Height: Weight: 04/27/2018 Blood Pressure 1: 148/78 Code: 8480-6 BMI: 35.6 Code: 71198-8 Heart Rate 1: 77 bpm Height: 5'8" SpO2: 97% Weight: 234 lbs 04/03/2018 Blood Pressure 1: 156/80 Code: 8480-6 BMI: 35.4 Code: 17726-5 Heart Rate 1: 70 bpm Height: 5'8" SpO2: 97% Weight: 233 lbs 01/27/2018 BMI: 35.6 Code: 36294-6 Heart Rate 1: 86 bpm Height: 5'8" SpO2: 98% Weight: 234 lbs 01/21/2018 Heigh t: Weight: 01/06/2018 Heigh t: Weight: 12/31/2017 Blood Pressure 1: 140/86 Code: 8480-6 BMI: 34.2 Code: 82682-0 Heart Rate 1: 80 bpm Height: 5'8" SpO2: 98% Weight: 225 lbs 10/08/2017 Blood Pressure 1: 152/74 Code: 8480-6 BMI: 34.2 Code: 46647-8 Heart Rate 1: 67 bpm Height: 5'8" SpO2: 98% Weight: 225 lbs 08/27/2017 Blood Pressure 1: 144/82 Code: 8480-6 BMI: 34.2 Code: 07385-1 Heart Rate 1: 70 bpm Height: 5'8" SpO2: 98% Weight: 225 lbs 06/10/2017 Blood Pressure 1: 150/84 Code: 8480-6 BMI: 35.0 Code: 05647-0 Heart Rate 1: 67 bpm Height: 5'8" SpO2: 98% Weight: 230 lbs 05/20/2017 Blood Pressure 1: 146/76 Code: 8480-6 BMI: 35.3 Code: 40078-7 Heart Rate 1: 70 bpm Height: 5'8" [...] Encounters Encounter Performer Loca tion Codes Date 78059 EST. PATIENT, LEVEL III Diagnosis: Type 2 diabetes mellitus with hyperglycemia[ICD10: E11.65] Diagnosis: Essential (primary) hypertension[ICD10: I10] Laney Guerrero MD, [facility] CPT-4: 28785 11/16/2018 36091 EST. PATIENT, LEVEL IV Diagnosis: Other acute sinusitis[ICD10: J01.80] Diagnosis: Other allergic rhinitis[ICD10: J30.89] Laney Guerrero MD [facility] CPT-4: 74024 10/15/2018 40814 EST. PATIENT, LEVEL III Diagnosis: Type 2 diabetes mellitus with hyperglycemia[ICD10: E11.65] Laney Guerrero MD, [facility] CPT-4: 67141 08/05/2018 72514 EST. PATIENT, LEVEL III Diagnosis: Type 2 diabetes mellitus with hyperglycemia[ICD10: E11.65] Laney Guerrero MD, [facility] CPT-4: 02631 06/22/2018 29155 EST. PATIENT, LEVEL IV Diagnosis: Diplopia[ICD10: H53.2] Diagnosis: Other specified anemias[ICD10: D64.89] Laney Guerrero MD, [facility] CPT-4: 65944 05/14/2018 24971 EST. PATIENT, LEVEL III Diagnosis: Benign paroxysmal vertigo, bilateral[ICD10: H81.13] Diagnosis: Other allergic rhinitis[ICD10: J30.89] Laney Guerrero MD, [facility] CPT-4: 85392 04/27/2018 36674 EST. PATIENT, LEVEL III Diagnosis: Type 2 diabetes mellitus with hyperglycemia[ICD10: E11.65] Diagnosis: Other fatigue[ICD10: R53.83] Diagnosis: Other malaise[ICD10: R53.81] Diagnosis: Bitten or stung by nonvenomous insect and other nonvenomous arthropods, initial encounter[ICD10: W57.XXXA] Diagnosis: Cellulitis of right upper limb[ICD10: L03.113] Diagnosis: Mixed hyperlipidemia[ICD10: E78.2] Laney Guerrero MD, [facility] CPT-4: 10586 04/03/2018 ([id number]) 56398 EST. P ATIENT, LEVEL III Diagnosis: Type 2 diabetes mellitus with hyperglycemia[ICD10: E11.65] Laney Guerrero MD, [facility] CPT-4: 52766 01/27/2018 ([id number]) Miscellaneou s no charge Diagnosis: Type 2 diabetes mellitus with hyperglycemia[ICD10: E11.65] Laney Guerrero MD, [facility] CPT-4: 04019 01/13/2018 56453 EST. PATIENT, LEVEL III Diagnosis: Type 2 diabetes mellitus with hyperglycemia[ICD10: E11.65] Diagnosis: Essential (primary) hypertension[ICD10: I10] Diagnosis: Mixed hyperlipidemia[ICD10: E78.2] Laney Guerrero MD, [facility] CPT-4: 69342 12/31/2017 73428 EST. PATIENT, LEVEL III Diagnosis: Type 2 diabetes mellitus with hyperglycemia[ICD10: E11.65] Diagnosis: Essential (primary) hypertension[ICD10: I10] Diagnosis: Mixed hyperlipidemia[ICD10: E78.2] Diagnosis: Actinic keratosis[ICD10: L57.0] Laney Guerrero MD, [facility] CPT-4: 05705 10/08/2017 47176 EST. PATIENT, LEVEL III Diagnosis: Type 2 diabetes mellitus with hyperglycemia[ICD10: E11.65] Diagnosis: Essential (primary) hypertension[ICD10: I10] Diagnosis: Mixed hyperlipidemia[ICD10: E78.2] Diagnosis: Actinic keratosis[ICD10: L57.0] Laney Guerrero MD, [facility] CPT-4: 37700 08/27/2017 96642 EST. PATIENT, LEVEL III Diagnosis: Type 2 diabetes mellitus with hyperglycemia[ICD10: E11.65] Diagnosis: Essential (primary) hypertension[ICD10: I10] Diagnosis: Mixed hyperlipidemia[ICD10: E78.2] Laney Guerrero MD, [facility] CPT-4: 36084 06/25/2017 ([id number]) 42504 EST. 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 11/16/2018 [phone] [facility] ([facility] min) Moderate 11/16/2018 [facility]ment[phone] [facility] ([facility] min) Complex 11/16/2018 Patient Education: Patient Medication Summary Completed 11/16/2018 Patient Education: Diabetes Completed 11/16/2018 Appointment: [facility] [phone] [facility] (15 min) Moderate 11/02/2018 Patient Education: Patient [...] spray. 10/15/2018 Appointment: Laney Luther WPtel: [phone] [facility] (30 min) Complex 10/15/2018 Patient [...] control. 08/05/2018 Appointment: Laney Luther WPtel: [phone] [facility] (15 min) Moderate 08/05/2018 Patient Education: Patient Medication Summary Completed 08/05/2018 Appointment: Laney Luther WPtel: [phone] [facility] (15 min) Moderate 07/17/2018 Referral: Kevin Cuevas [...] control. 06/22/2018 Appointment: Laney Luther WPtel: [phone] [facility] (15 min) Moderate 06/22/2018 Patient Education: Patient Medication Summary Completed 06/22/2018 Patient Education: Diabetes Completed 06/22/2018 Care Plan: Referral Order SNOMED-CT : [id number] Pending 06/22/2018 Referral: [facility] Referral Initiated 06/02/2018 Appointment: Nurse Visit 05/18/2018 [...] or concerns. 05/14/2018 Appointment: Laney Luther WPtel: [phone] [facility] (15 min) Moderate 05/14/2018 Patient [...] 04/27/2018 Care Plan: Referral Order SNOMED-CT : [id number] Pending 04/27/2018 Visit Plan: Diabetes Mellitus - [...] for follow up on the patient's financial aid manager gumaro medical problem and to assure normal liver response to medications. 04/03/2018 Appointment: [facility] [phone] [facility] (15 min) Moderate 04/03/2018 Patient Education: Patient Medication Summary Completed 04/03/2018 Appointment: [facility] Luther [facility]el[facility] [phone] [facility] (30 min) Complex 03/31/2018 Patient Education: Patient [...] control. 01/27/2018 Appointment: [facility] Luther [facility]el[facility] [phone] [facility] (30 min) Complex 01/27/2018 Patient Education: Patient [...] Completed 01/21/2018 Appointment: [facility] Luther [facility] [phone] [facility] (15 min) Moderate 01/13/2018 Patient Education: Patient [...] blood glucose control. 01/06/2018 Appointment: Laney Lutherl: [facility] (15 min) Moderate 01/06/2018 Patient Education: Patient [...] to medications. 12/31/2017 Appointment: [facility] Lutherl[facility] [phone] [facility] (30 min) Complex 12/31/2017 Patient Education: Patient [...] concerns. 10/08/2017 Appointment: Lane[facility] Luther [facility]Ptel[facility] [phone] [facility] (30 min) Complex 10/08/2017 Patient Education: Patient Medication Summary Completed 10/08/2017 Appointment: [facility] Luther [facility]el[facility] [phone] [facility] (15 min) Moderate 10/07/2017 Visit Plan: Diabetes [...] acute concerns. 08/27/2017 Appointment: Laney Luther WPtel: [facility] (30 min) Complex 08/27/2017 Patient Education: Patient [...] medications. 06/25/2017 Appointment: Laney Luther WPtel: [phone] [facility] (30 min) Complex 06/25/2017 Patient Education: Patient Medication Summary Completed 06/25/2017 Appointment: Debra Ramirez WPtel: [phone] [phone] (30 min) Complex 06/24/2017 Visit Plan: [...] medications. 06/10/2017 Appointment: Debra Ramirez WPtel: [phone] [id number] (30 min) Complex 06/10/2017 Patient Education: [...] glucose control. 05/20/2017 Appointment: Laney Luther WPtel: [address] [place], [place] [phone] New Patient 05/20/2017 Patient Education: Patient Medication Summary Completed 05/20/2017 Referral: [id number] Referral Initiated Referral: Kevin Cuevas Referral Initiated [...] blood glucose control. GET RECENT LABS FROM [facility] FASTING LABS NEXT WEEK UNLESS WE [...]
--- OUTSIDE RECORDS SUMMARY | 2020-02-09 07:12 | XMS REPORT | CCD ---
Author Author Gunnar Luther Organization Karo Guerrero MD, [facility] Address [address] [place] [address] Phone Care Team Providers Care Skin Lifter Bacon Name Role Phone PP Unavailable CCM Unavailable Summary Purpose Interface Exchange Insurance Providers Payer name Policy type / Coverage type Covered constitution party ID Effective Begin Date Effective End Date WPS Medicare Part B Medicare Part B [id number] Unknown Aetna Medicare Part B AH [id number] Unknown Cigna Medicare Part B 80 [id number] Unknown Family history Sister Diagnosis Age At [...] ed reddy 05/20/[address]: 741562229 Never smoker 05/20/[address]: 268311958 Never drinks alcohol 05/20/2017 Allergies, Adverse Reactions, [...] Date Stop Date Sta tus Fill Instructions metformin ER 750 mg tablet,extended release 24 hr RxNorm: 107889 2 TABLET(S) PO DAILY 11/13/2018 03/12/2019 Ac tive Tradjenta 5 mg tablet RxNorm: 4562526 TAKE 1 TABLET BY MOUTH DAILY 10/16/2018 03/14/2019 Ac tive Kenalog 40 mg/mL benitez pension for injection RxNorm: 3497546 1 Milliliter(s) Inj 10/15/2018 10/15/2018 In active Tradjenta 5 mg tablet RxNorm: 9667755 TAKE 1 TABLET BY MOUTH DAILY 09/18/2018 02/14/2019 Ac tive metformin ER 750 mg tablet,extended release 24 hr RxNorm: 493265 2 TABLET(S) PO DAILY 07/13/2018 11/09/2018 Inactive Tradjenta 5 mg tablet RxNorm: 0512715 TAKE 1 TABLET BY MOUTH DAILY 07/02/2018 09/17/2018 In active One Touch Test strips RxNorm: 1 Miscellaneous BID 06/29/2018 07/28/2018 Inactive Zyrtec 10 mg tablet RxNorm: 1749812 1 Tablet(s) PO daily 04/27/2018 05/26/2018 Inactive doxycycline hyclate 100 mg capsule RxNorm: 8041934 1 Capsule(s) PO BID 04/03/2018 04/12/2018 In active meclizine 25 mg tablet RxNorm: 804518 1 Tablet(s) PO TID as needed Dizziness 04/03/2018 04/07/2018 In active metformin ER 750 mg tablet,extended release 24 hr RxNorm: 737837 2 TABLET(S) PO DAILY 02/03/2018 06/02/2018 Inactive glimepiride 2 mg tablet RxNorm: 085955 TAKE 1 TABLET BY MOUTH TWICE DAILY FOR D IABETES 01/13/2018 04/07/2019 Active glimepiride 2 mg tablet RxNorm: 802090 TAKE 1 TABLET BY MOUTH TWICE DAILY FOR D IABETES 01/11/2018 01/05/2019 Active diltiazem CD 360 mg capsule,extended release 24 hr RxNorm: 636143 1 CAPSULE(S) PO QHS 01/02/2018 12/27/2018 Ac tive atenolol 50 mg-chlor thalidone 25 mg tablet RxNorm: 191161 1 Tablet(s) PO daily 12/18/2017 12/12/2018 Ac tive PLEASE SEND REFILL REQUESTS ELECTRONICAL LY Tradjenta 5 mg tablet RxNorm: 5442511 TAKE 1 TABLET BY MOUTH DAILY 12/15/2017 05/13/2018 In active metformin ER 750 mg tablet,extended release 24 hr RxNorm: 418502 2 TABLET(S) PO DAILY 11/05/2017 02/02/2018 Inactive metformin ER 750 mg tablet,extended release 24 hr RxNorm: 889713 2 TABLET(S) PO DAILY 11/03/2017 02/02/2018 Inactive atorvastatin 20 mg t ablet RxNorm: 211682 TAKE 1 TABLET BY MOUT H EVERY NIGHT AT BEDTIME FOR CHOLESTEROL 08/28/2017 08/22/2018 Inactive Zithromax Z-Muary 250 mg tablet RxNorm: 289752 1 Tablet(s) PO UD 08/15/2017 04/13/2018 Inactive Tamiflu 75 mg capsule RxNorm: 744815 1 Capsule(s) PO BID 08/15/2017 08/14/2017 Inactive Tamiflu 75 mg capsule RxNorm: 164370 1 Capsule(s) PO BID 08/15/2017 08/19/2017 Inactive Tradjenta 5 mg tablet RxNorm: 6042379 TAKE 1 TABLET BY MOUTH DAILY 08/12/2017 12/09/2017 In active metformin ER 750 mg tablet,extended release 24 hr RxNorm: 479618 TAKE 2 TABLET BY MOUT H ONCE A DAY DIRECTED 08/08/2017 No Stop Date Active SAVINGS FOR NON-COVERED MEDICATIONS Claims: BIN: [id number], PCN: [id number], GROUP: [id number], Patient ID: [id number] Phone; Questions: Your[facility] [phone] metformin ER 750 mg tablet,extended release 24 hr RxNorm: 784066 2 Tablet(s) PO daily 08/07/2017 08/06/2017 Inactive metformin ER 750 mg tablet,extended release 24 hr RxNorm: 426056 2 Tablet(s) PO daily 08/07/2017 11/02/2017 Inactive glimepiride 2 mg tablet RxNorm: 917910 TAKE 1 TABLET BY MOUTH TWICE DAILY FOR D IABETES 07/18/2017 01/10/2018 Inactive diltiazem CD 360 mg capsule,extended release 24 hr RxNorm: 412962 1 Capsule(s) PO QHS 07/03/2017 12/29/2017 Inactive One Touch Test strips RxNorm: 1 Miscellaneous daily 05/30/2017 06/28/2017 Inactive One Touch Test strips RxNorm: 1 Miscellaneous daily 05/30/2017 05/29/2017 Inactive iron gluconate-B cmp lx-potassium iodide-minerals oral RxNorm: 94899 oral No Start Date Active Super B Complex 100 tablet RxNorm: 1 Tablet(s) PO daily No Start Date Active Glucosamine Chondroi tin Maximum Strength oral RxNorm: 4845 oral No Start Date Active garlic 1,000 mg capsule RxNorm: 748314 1 Capsule(s) PO BID No Start Date Active vitamin E (dl, aceta te) 400 unit capsule RxNorm: 575944 1 Capsule(s) PO daily No Start Date Active beta carotene 25,000 unit tablet RxNorm: 305224 1 Tablet(s) PO daily No Start Date Active rutin 500 mg tablet RxNorm: 465467 1/2 Tablet(s) PO daily No Start Date Active Calcium 600 + [place] ls oral RxNorm: 341122 oral No S tart Date Active Vitamin D3 1,000 uni t tablet RxNorm: 497773 1 Tablet(s) PO daily No Start Date Active Vitamin C 500 mg tablet RxNorm: 125883 1 Tablet(s) PO daily No Start Date Active acidophilus 25 susanne on cell-pectin, citrus 100 mg tablet RxNorm: 041360 1 Tablet(s) PO BID No Start Date Active Zinc and C oral RxNorm: oral No Start Date Active aspirin 81 mg chewab le tablet RxNorm: 724655 1 Tablet(s) PO QPM No Start Date Active Zegerid OTC 20 mg-1. 1 gram capsule RxNorm: 811565 1 Capsule(s) PO daily No Start Date Active magnesium 250 mg tablet RxNorm: 1 Tablet(s) PO daily No Start Date Active flaxseed oil 1,000 m g capsule RxNorm: 850295 1 Capsule(s) PO BID No Start Date Active milk thistle 175 mg tablet RxNorm: 089206 1 Tablet(s) PO daily No Start Date Active metformin ER 750 mg tablet,extended release 24 hr RxNorm: 518522 2 Tablet(s) PO daily No Start Date 08/06/2017 Inactive atorvastatin 20 mg t ablet RxNorm: 703447 1 Tablet(s) PO daily No Start Date 08/27/2017 Inactive Tradjenta 5 mg tablet RxNorm: 8933058 1 Tablet(s) PO daily No Start Date 08/11/2017 Inactive diltiazem ER 300 mg tablet,extended release 24 hr RxNorm: 539380 1 Tablet(s) PO daily No Start Date 05/18/2017 Inactive glimepiride 2 mg tablet RxNorm: 317646 1 Tablet(s) PO BID No Start Date 07/17/2017 Inactive Zithromax Z-Maury 250 mg tablet RxNorm: 247111 1 Tablet(s) PO UD No Start Date 08/14/2017 Inactive atenolol 50 mg-chlor thalidone 25 mg tablet RxNorm: 876013 1 Tablet(s) PO daily No Start Date 12/17/2017 Inactive diltiazem CD 360 mg capsule,extended release 24 hr RxNorm: 725984 1 Capsule(s) PO QHS No Start Date 07/02/2017 Inactive Medication Administered Medication Codes Instruc tions Start Date Status Kenalog 40 mg/mL suspension for injection RxNorm: 7429113 1Milliliter 10/15/2018 N o longer Active Immunizations [...] Item Item Code Result Date Comp Metabolic Wqk557 NA 137 mEq/L 11/09/2018 Comp Metabolic Fsz066 K 4.4 mEq/L 11/09/2018 Comp Metabolic Psa479 CL 97 mEq/L 11/09/2018 Comp Metabolic Qnw644 CO2 30.0 mEq/L 11/09/2018 Comp Metabolic Jkl442 AN ION GAP 14 11/09/2018 Comp Metabolic Lug413 GL UCOSE 122 mg/dL 11/09/2018 Comp Metabolic Lov763 Cr eat 1.1 mg/dL 11/09/2018 Comp Metabolic Kht999 eG FR 70 ml/min/1.73m2 11/09 Comp Metabolic Xng069 BUN 21 mg/dL 11/09/2018 Comp Metabolic Hec438 B/ C Ratio 19.6 Ratio 11/09/2018 Comp Metabolic Okz356 CA LCIUM 10.2 mg/dL 11/09/2018 Comp Metabolic Sek055 AL K PHOS 45 U/L 11/09/2018 Comp Metabolic Icf848 T(SGOT) 19 U/L 11/09/2018 Comp Metabolic Hqc362 AL T(SGPT) 24 U/L 11/09/2018 Comp Metabolic Ctk712 BI LI T 0.5 mg/dL 11/09/2018 Comp Metabolic Tuo254 AL BUMIN 4.4 g/dL 11/09/2018 Comp Metabolic Zwz922 TP RO 6.7 g/dL 11/09/2018 Comp Metabolic Qvk939 GL OB 2.3 g/dL 11/09/2018 Comp Metabolic Ddx471 A/ G Ratio 1.9 Ratio 11/09/2018 Comp Metabolic Ytf199 Os mo 278 mOsmo 11/09/2018 Cbc With [...] 32.0 pg 11/09/2018 Cbc With Differential Ord2 [place]% 9.8 % 11/09/2018 Cbc With Differential Ord2 [...] 2.13 K/ul 11/09/2018 Cbc With Differential Ord2 [place] ABS# 0.8 K/ul 11/09/2018 Cbc With Differential Ord2 Eos ABS# 0.1 K/ul 11/09/2018 Cbc With Differential Ord2 Baso ABS# 0.0 K/ul 11/09/2018 %Hba1C Tyg783 % HbA1c 13104-5 6.7 % 11/09/2018 %Hba1C Dnu476 Gluc Ave 146 mg/dL 11/09/2018 Tsh Ord6 [...] 31.4 pg 08/03/2018 Cbc With Differential Ord2 [place]% 11.9 % 08/03/2018 Cbc With Differential Ord2 [...] 1.62 K/ul 08/03/2018 Cbc With Differential Ord2 [place] ABS# 0.9 K/ul 08/03/2018 Cbc With Differential Ord2 Eos ABS# 0.1 K/ul 08/03/2018 Cbc With Differential Ord2 Baso ABS# 0.0 K/ul 08/03/2018 Comp Metabolic Bel610 NA 135 mEq/L 08/03/2018 Comp Metabolic Fgv329 K 3.5 mEq/L 08/03/2018 Comp Metabolic Ygu117 CL 95 mEq/L 08/03/2018 Comp Metabolic Stn692 CO2 30.0 mEq/L 08/03/2018 Comp Metabolic Iyf277 AN ION GAP 14 08/03/2018 Comp Metabolic Jel751 GL UCOSE 152 mg/dL 08/03/2018 Comp Metabolic Wny547 Cr eat 1.2 mg/dL 08/03/2018 Comp Metabolic Ict539 eG FR 61 ml/min/1.73m2 08/03 Comp Metabolic Tsw216 BUN 23 mg/dL 08/03/2018 Comp Metabolic Ycq426 B/ C Ratio 19.0 Ratio 08/03/2018 Comp Metabolic Ity919 CA LCIUM 9.6 mg/dL 08/03/2018 Comp Metabolic Mqx588 AL K PHOS 51 U/L 08/03/2018 Comp Metabolic Njy724 T(SGOT) 20 U/L 08/03/2018 Comp Metabolic Ccz794 AL T(SGPT) 24 U/L 08/03/2018 Comp Metabolic Xok194 BI LI T 0.5 mg/dL 08/03/2018 Comp Metabolic Czb441 AL BUMIN 4.3 g/dL 08/03/2018 Comp Metabolic Qoh116 TP RO 6.8 g/dL 08/03/2018 Comp Metabolic Wrc374 GL OB 2.6 g/dL 08/03/2018 Comp Metabolic Apv560 A/ G Ratio 1.7 Ratio 08/03/2018 Comp Metabolic Vju692 Os mo 277 mOsmo 08/03/2018 %Hba1C Coq528 % HbA1c 70391-3 7.3 % 08/03/2018 %Hba1C Lqr657 Gluc Ave 163 mg/dL 08/03/2018 Cbc With [...] 31.2 pg 05/14/2018 Cbc With Differential Ord2 [place]% 12.2 % 05/14/2018 Cbc With Differential Ord2 [...] 1.81 K/ul 05/14/2018 Cbc With Differential Ord2 [place] ABS# 1.0 K/ul 05/14/2018 Cbc With Differential Ord2 Eos ABS# 0.1 K/ul 05/14/2018 Cbc With Differential Ord2 Baso ABS# 0.0 K/ul 05/14/2018 Ehrlichia Chaffeensis Antibody Igm [id number] EHRLICHIA CHAFFEENSIS IGM < 1:16 04/09/2018 Ehrlichia Chaffeensis Antibody Igg [id number] EHRLICHIA CHAFFEENSIS IGG 1:64 04/09/2018 Hasty Spotted Fever Igg/Igm 93484 3 LOTUS MT SPOTTED FEVER IGM EIA . 04/09/2018 Hasty Spotted Fever Igg/Igm 42084 3 RMSF, IGM 0.36 index 04/09/2018 Hasty Spotted Fever Igg/Igm 39572 3 LOTUS ID SPOTTED FEVER IGG EIA FLEX . 04/09/2018 Hasty Spotted Fever Igg/Igm 73528 3 RMSF, IGG SCREEN-FLEX Negative 04/09/2018 Lymes Disease Total Antibodies With Western Blot Refle x [id number] B. BURGDORFERI, IGG/IGM 0.31 04/07/2018 Lymes Disease Total Antibodies With Western Blot Refle x [id number] INTERPRETATION 04/07/2018 %Hba1C Ksh672 % HbA1c 94424-9 7.2 % 03/31/2018 %Hba1C Ivu206 Gluc Ave 160 mg/dL 03/31/2018 Lipid Ord30 [...] 31.3 pg 12/22/2017 Cbc With Differential Ord2 [place]% 11.5 % 12/22/2017 Cbc With Differential Ord2 [...] 2.16 K/ul 12/22/2017 Cbc With Differential Ord2 [place] ABS# 1.1 K/ul 12/22/2017 Cbc With Differential Ord2 Eos ABS# 0.1 K/ul 12/22/2017 Cbc With Differential Ord2 Baso ABS# 0.0 K/ul 12/22/2017 Comp Metabolic Jqf543 NA 141 mEq/L 12/22/2017 Comp Metabolic Aof417 K 3.9 mEq/L 12/22/2017 Comp Metabolic Kfo133 CL 99 mEq/L 12/22/2017 Comp Metabolic Ygg720 CO2 32.0 mEq/L 12/22/2017 Comp Metabolic Wic956 AN ION GAP 14 12/22/2017 Comp Metabolic Jzi246 GL UCOSE 152 mg/dL 12/22/2017 Comp Metabolic Yhc058 Cr eat 1.0 mg/dL 12/22/2017 Comp Metabolic Hpx765 eG FR 78 ml/min/1.73m2 12/22 Comp Metabolic Jwq981 BUN 27 mg/dL 12/22/2017 Comp Metabolic Uva747 B/ C Ratio 27.8 Ratio 12/22/2017 Comp Metabolic Ygx290 CA LCIUM 9.7 mg/dL 12/22/2017 Comp Metabolic Buy540 AL K PHOS 56 U/L 12/22/2017 Comp Metabolic Jkh785 T(SGOT) 18 U/L 12/22/2017 Comp Metabolic Aaa672 AL T(SGPT) 20 U/L 12/22/2017 Comp Metabolic Ryv877 BI LI T 0.4 mg/dL 12/22/2017 Comp Metabolic Vui900 AL BUMIN 4.2 g/dL 12/22/2017 Comp Metabolic Ged030 TP RO 6.4 g/dL 12/22/2017 Comp Metabolic Koc017 GL OB 2.2 g/dL 12/22/2017 Comp Metabolic Tjs873 A/ G Ratio 1.9 Ratio 12/22/2017 Comp Metabolic Gqo629 Os mo 289 mOsmo 12/22/2017 %Hba1C Kvd686 % HbA1c 12675-3 7.1 % 12/22/2017 %Hba1C Unx535 Gluc Ave 157 mg/dL 12/22/2017 Cbc With [...] 31.5 pg 09/22/2017 Cbc With Differential Ord2 [place]% 8.4 % 09/22/2017 Cbc With Differential Ord2 [...] 1.83 K/ul 09/22/2017 Cbc With Differential Ord2 [place] ABS# 0.9 K/ul 09/22/2017 Cbc With Differential Ord2 Eos ABS# 0.0 K/ul 09/22/2017 Cbc With Differential Ord2 Baso ABS# 0.0 K/ul 09/22/2017 %Hba1C Jlx071 % HbA1c 10864-9 6.9 % 09/22/2017 %Hba1C Sjc924 Gluc Ave 151 mg/dL 09/22/2017 Tsh Ord6 [...] 31.6 pg 06/17/2017 Cbc With Differential Ord2 [place]% 11.1 % 06/17/2017 Cbc With Differential Ord2 [...] 2.35 K/ul 06/17/2017 Cbc With Differential Ord2 [place] ABS# 1.2 K/ul 06/17/2017 Cbc With Differential Ord2 Eos ABS# 0.1 K/ul 06/17/2017 Cbc With Differential Ord2 Baso ABS# 0.0 K/ul 06/17/2017 %Hba1C Pfo128 % HbA1c 05686-8 7.3 % 06/17/2017 %Hba1C Onc241 Gluc Ave 163 mg/dL 06/17/2017 Comp Metabolic Exb483 NA 137 mEq/L 06/17/2017 Comp Metabolic Jcz276 K 3.8 mEq/L 06/17/2017 Comp Metabolic Rtr130 CL 98 mEq/L 06/17/2017 Comp Metabolic Str325 CO2 30.0 mEq/L 06/17/2017 Comp Metabolic Phf133 AN ION GAP 13 06/17/2017 Comp Metabolic Kzh235 GL UCOSE 157 mg/dL 06/17/2017 Comp Metabolic Yjv840 Cr eat 1.0 mg/dL 06/17/2017 Comp Metabolic Vfn784 eG FR 76 ml/min/1.73m2 06/17 Comp Metabolic Ebi180 BUN 18 mg/dL 06/17/2017 Comp Metabolic Obd466 B/ C Ratio 18.0 Ratio 06/17/2017 Comp Metabolic Pmo945 CA LCIUM 9.8 mg/dL 06/17/2017 Comp Metabolic Acr642 AL K PHOS 57 U/L 06/17/2017 Comp Metabolic Mec065 T(SGOT) 19 U/L 06/17/2017 Comp Metabolic Lft237 AL T(SGPT) 23 U/L 06/17/2017 Comp Metabolic Lix704 BI LI T 0.6 mg/dL 06/17/2017 Comp Metabolic Moc699 AL BUMIN 4.4 g/dL 06/17/2017 Comp Metabolic Wdw452 TP RO 6.8 g/dL 06/17/2017 Comp Metabolic Fly906 GL OB 2.4 g/dL 06/17/2017 Comp Metabolic Xpf017 A/ G Ratio 1.9 Ratio 06/17/2017 Comp Metabolic Xrk649 Os mo 279 mOsmo 06/17/2017 Review of [...] nourished 01/21/2018 None Full Exam - General 1995 Eyes conjunctiva/eyelids Overall: conjunctiva clear 01/21/2018 None [...] skin Location: scalp 10/08/2017 [place] - right mosque, mid fo rehead/scalp, left posterior neck - [...] skin Location: scalp 08/27/2017 [place] - right mosque, mid fo rehead/scalp - cryotherapy to area, [...] CPT-4: J3301 10/15/2018 THER/PROPH/DIAG INJ SC/IM CPT-4: 01657 10/15/2018 ADMIN INFLUENZA VIRU S VAC CPT-4: G0008 06/24/2018 FLU VACC PRSV FREE I NC ANTIG CPT-4: 77704 06/24/2018 GLUC MONITOR CONT PH YS I&R CPT-4: 10447 01/27/2018 PPPS, SUBSEQ VISIT CPT- 4: G0439 01/21/2018 GLUCOSE MONITORING CONT CPT-4: 49451 01/06/2018 ADMIN INFLUENZA VIRU S VAC CPT-4: G0008 06/09/2017 FLU VACC PRSV FREE I NC ANTIG CPT-4: 04351 06/09/2017 Vital Signs Date Vital 11/16/2018 Blood Pressure 1: 154/90 Code: 8480-6 BMI: 33.1 Code: 63051-8 Heart Rate 1: 84 bpm Height: 5'8" SpO2: 96% Weight: 218 lbs 10/15/2018 Blood Pressure 1: 140/70 Code: 8480-6 BMI: 33.5 Code: 86520-6 Heart Rate 1: 72 bpm Height: 5'8" SpO2: 98% Weight: 220 lbs 08/05/2018 Blood Pressure 1: 132/56 Code: 8480-6 BMI: 34.5 Code: 47512-0 Heart Rate 1: 65 bpm Height: 5'8" SpO2: 95% Weight: 227 lbs 06/22/2018 Blood Pressure 1: 144/86 Code: 8480-6 BMI: 36.0 Code: 26515-5 Heart Rate 1: 74 bpm Height: 5'8" SpO2: 98% Weight: 237 lbs 05/14/2018 Blood Pressure 1: 132/72 Code: 8480-6 Height: Weight: 04/27/2018 Blood Pressure 1: 148/78 Code: 8480-6 BMI: 35.6 Code: 06146-0 Heart Rate 1: 77 bpm Height: 5'8" SpO2: 97% Weight: 234 lbs 04/03/2018 Blood Pressure 1: 156/80 Code: 8480-6 BMI: 35.4 Code: 74024-1 Heart Rate 1: 70 bpm Height: 5'8" SpO2: 97% Weight: 233 lbs 01/27/2018 BMI: 35.6 Code: 22789-8 Heart Rate 1: 86 bpm Height: 5'8" SpO2: 98% Weight: 234 lbs 01/21/2018 Heigh t: Weight: 01/06/2018 Heigh t: Weight: 12/31/2017 Blood Pressure 1: 140/86 Code: 8480-6 BMI: 34.2 Code: 68525-6 Heart Rate 1: 80 bpm Height: 5'8" SpO2: 98% Weight: 225 lbs 10/08/2017 Blood Pressure 1: 152/74 Code: 8480-6 BMI: 34.2 Code: 14853-4 Heart Rate 1: 67 bpm Height: 5'8" SpO2: 98% Weight: 225 lbs 08/27/2017 Blood Pressure 1: 144/82 Code: 8480-6 BMI: 34.2 Code: 54606-1 Heart Rate 1: 70 bpm Height: 5'8" SpO2: 98% Weight: 225 lbs 06/10/2017 Blood Pressure 1: 150/84 Code: 8480-6 BMI: 35.0 Code: 36384-7 Heart Rate 1: 67 bpm Height: 5'8" SpO2: 98% Weight: 230 lbs 05/20/2017 Blood Pressure 1: 146/76 Code: 8480-6 BMI: 35.3 Code: 86340-8 Heart Rate 1: 70 bpm Height: 5'8" [...] Encounters Encounter Performer Loca tion Codes Date 41175 EST. PATIENT, LEVEL III Diagnosis: Type 2 diabetes mellitus with hyperglycemia[ICD10: E11.65] Diagnosis: Essential (primary) hypertension[ICD10: I10] [facility] CPT-4: 23994 11/16/2018 40417 EST. PATIENT, LEVEL IV Diagnosis: Other acute sinusitis[ICD10: J01.80] Diagnosis: Other allergic rhinitis[ICD10: J30.89] [facility] CPT-4: 81160 10/15/2018 56507 EST. PATIENT, LEVEL III Diagnosis: Type 2 diabetes mellitus with hyperglycemia[ICD10: E11.65] Laney Guerrero MD, [facility] CPT-4: 00745 08/05/2018 06570 EST. PATIENT, LEVEL III Diagnosis: Type 2 diabetes mellitus with hyperglycemia[ICD10: E11.65] Laney Guerrero MD, [facility] CPT-4: 52587 06/22/2018 83251 EST. PATIENT, LEVEL IV Diagnosis: Diplopia[ICD10: H53.2] Diagnosis: Other specified anemias[ICD10: D64.89] Laney Guerrero MD, [facility] CPT-4: 36541 05/14/2018 33310 EST. PATIENT, LEVEL III Diagnosis: Benign paroxysmal vertigo, bilateral[ICD10: H81.13] Diagnosis: Other allergic rhinitis[ICD10: J30.89] Laney Guerrero MD, [facility] CPT-4: 45222 04/27/2018 51492 EST. PATIENT, LEVEL III Diagnosis: Type 2 diabetes mellitus with hyperglycemia[ICD10: E11.65] Diagnosis: Other fatigue[ICD10: R53.83] Diagnosis: Other malaise[ICD10: R53.81] Diagnosis: Bitten or stung by nonvenomous insect and other nonvenomous arthropods, initial encounter[ICD10: W57.XXXA] Diagnosis: Cellulitis of right upper limb[ICD10: L03.113] Diagnosis: Mixed hyperlipidemia[ICD10: E78.2] Laney Guerrero MD, [facility] CPT-4: 91858 04/03/2018 ([id number]) 53350 EST. P ATIENT, LEVEL III Diagnosis: Type 2 diabetes mellitus with hyperglycemia[ICD10: E11.65] Laney Guerrero MD, [facility] CPT-4: 62361 01/27/2018 ([id number]) Miscellaneou s no charge Diagnosis: Type 2 diabetes mellitus with hyperglycemia[ICD10: E11.65] Laney Guerrero MD, [facility] CPT-4: 13317 01/13/2018 10676 EST. PATIENT, LEVEL III Diagnosis: Type 2 diabetes mellitus with hyperglycemia[ICD10: E11.65] Diagnosis: Essential (primary) hypertension[ICD10: I10] Diagnosis: Mixed hyperlipidemia[ICD10: E78.2] Laney Guerrero MD, [facility] CPT-4: 38818 12/31/2017 27755 EST. PATIENT, LEVEL III Diagnosis: Type 2 diabetes mellitus with hyperglycemia[ICD10: E11.65] Diagnosis: Essential (primary) hypertension[ICD10: I10] Diagnosis: Mixed hyperlipidemia[ICD10: E78.2] Diagnosis: Actinic keratosis[ICD10: L57.0] Laney Guerrero MD, [facility] CPT-4: 78034 10/08/2017 25658 EST. PATIENT, LEVEL III Diagnosis: Type 2 diabetes mellitus with hyperglycemia[ICD10: E11.65] Diagnosis: Essential (primary) hypertension[ICD10: I10] Diagnosis: Mixed hyperlipidemia[ICD10: E78.2] Diagnosis: Actinic keratosis[ICD10: L57.0] Laney Guerrero MD, [facility] CPT-4: 70651 08/27/2017 48279 EST. PATIENT, LEVEL III Diagnosis: Type 2 diabetes mellitus with hyperglycemia[ICD10: E11.65] Diagnosis: Essential (primary) hypertension[ICD10: I10] Diagnosis: Mixed hyperlipidemia[ICD10: E78.2] Laney Guerrero MD, [facility] CPT-4: 47495 06/25/2017 ([id number]) 01895 EST. 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 11/16/2018 Appointment: Karo Guerrero WPtel: [phone] [facility] (15 min) Moderate 11/16/2018 Appointment: Laney Luther WPtel: [facility] (30 min) Complex 11/16/2018 Patient Education: Patient Medication Summary Completed 11/16/2018 Patient Education: Diabetes Completed 11/16/2018 Appointment: Laney Luther WPtel: [facility] (15 min) Moderate 11/02/2018 Patient Education: Patient [...] spray. 10/15/2018 Appointment: Laney Luther WPtel: [phone] [facility] (30 min) Complex 10/15/2018 Patient Education: Patient [...] glucose control. 08/05/2018 Appointment: Laney Luther WPtel: [phone] [facility] (15 min) Moderate 08/05/2018 Patient Education: Patient Medication Summary Completed 08/05/2018 Appointment: Laney Luther WPtel: [phone] [facility] (15 min) Moderate 07/17/2018 Referral: [...] glucose control. 06/22/2018 Appointment: Laney Luther WPtel: [phone] [facility] (15 min) Moderate 06/22/2018 Patient Education: Patient Medication Summary Completed 06/22/2018 Patient Education: Diabetes Completed 06/22/2018 Care Plan: Referral Order SNOMED-CT : [id number] Pending 06/22/2018 [facility] Referral Initiated 06/02/2018 Appointment: Nurse Visit 05/18/2018 [...] or concerns. 05/14/2018 Appointment: Laney Luther WPtel: [address] [facility] (15 min) Moderate 05/14/2018 Patient [...] 04/27/2018 Care Plan: Referral Order SNOMED-CT : [id number] Pending 04/27/2018 Visit Plan: Diabetes Mellitus - [...] months for follow up on the patient's frame builder gumaro medical problem and to assure normal liver response to medications. 04/03/2018 [facility]ment: [phone] (15 min) Moderate 04/03/2018 Patient Education: Patient Medication Summary Completed 04/03/2018 Appointment: [phone] [place] (30 min) Complex 03/31/2018 Patient Education: [...] Completed 01/21/2018 Appointment: [phone] (15 min) Moderate 01/13/2018 [...] control. 01/06/2018 [facility]ment: [phone] (15 min) Moderate 01/06/2018 Patient Education: Patient [...] medications. 12/31/2017 App[facility]ment: [phone] (30 min) Complex 12/31/2017 Patient Education: Patient [...] concerns. 10/08/2017 Appointment: [facility] Luther [phone] (30 min) Complex 10/08/2017 Patient Education: Patient Medication Summary Completed 10/08/2017 Appointment: [phone] [facility] (15 min) Moderate 10/07/2017 Visit Plan: Diabetes [...] [facility] Luther [phone] [facility] (30 min) [facility] 08/27/2017 Patient Education: Patient Medication Summary Completed [...] Completed 06/25/2017 Appointment: Debra Ramirez WPtel: [phone] [phone] (30 min) Complex 06/24/2017 Visit Plan: Hypertension [...] medications. 06/10/2017 Appointment: [phone] [facility] (30 min) Complex 06/10/2017 Patient Education: Patient [...] greater blood glucose control. 05/20/2017 Appointment: [facility] u[facility]ther [phone] [facility] New Patient 05/20/2017 Patient Education: Patient Medication Summary Completed 05/20/2017 [facility] Ref[facility] Initiated Referral: Kevin Cuevas Referral [...] blood glucose control. GET RECENT LABS FROM [facility] FASTING LABS NEXT WEEK UNLESS WE [...]
--- OUTSIDE RECORDS SUMMARY | 2020-02-09 07:13 | XMS REPORT | CCD ---
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] 750 mg tablet,extended release 24 hr RxNorm: 662835 2 TABLET(S) PO DAILY 11/13/2018 03/12/2019 Ac tive Tradjenta 5 mg tablet RxNorm: 4481251 TAKE 1 TABLET BY MOUTH DAILY 10/16/2018 03/14/2019 Ac tive Kenalog 40 mg/mL benitez pension for injection RxNorm: 5154313 1 Milliliter(s) Inj 10/15/2018 10/15/2018 In active Tradjenta 5 mg tablet RxNorm: 0824257 TAKE 1 TABLET BY MOUTH DAILY 09/18/2018 02/14/2019 Ac tive metformin ER 750 mg tablet,extended release 24 hr RxNorm: 191287 2 TABLET(S) PO DAILY 07/13/2018 11/09/2018 Inactive Tradjenta 5 mg tablet RxNorm: 4014110 TAKE 1 TABLET BY MOUTH DAILY 07/02/2018 09/17/2018 In active One Touch Test strips RxNorm: 1 Miscellaneous BID 06/29/2018 07/28/2018 Inactive Zyrtec 10 mg tablet RxNorm: 5253865 1 Tablet(s) PO daily 04/27/2018 05/26/2018 Inactive doxycycline hyclate 100 mg capsule RxNorm: 9347942 1 Capsule(s) PO BID 04/03/2018 04/12/2018 In active meclizine 25 mg tablet RxNorm: 770344 1 Tablet(s) PO TID as needed Dizziness 04/03/2018 04/07/2018 In active metformin ER 750 mg tablet,extended release 24 hr RxNorm: 946363 2 TABLET(S) PO DAILY 02/03/2018 06/02/2018 Inactive glimepiride 2 mg tablet RxNorm: 756923 TAKE 1 TABLET BY MOUTH TWICE DAILY FOR D IABETES 01/13/2018 04/07/2019 Active glimepiride 2 mg tablet RxNorm: 223432 TAKE 1 TABLET BY MOUTH TWICE DAILY FOR D IABETES 01/11/2018 01/05/2019 Active diltiazem CD 360 mg capsule,extended release 24 hr RxNorm: 997981 1 CAPSULE(S) PO QHS 01/02/2018 12/27/2018 Ac tive atenolol 50 mg-chlor thalidone 25 mg tablet RxNorm: 341511 1 Tablet(s) PO daily 12/18/2017 12/12/2018 Ac tive PLEASE SEND REFILL REQUESTS ELECTRONICAL LY Tradjenta 5 mg tablet RxNorm: 1691018 TAKE 1 TABLET BY MOUTH DAILY 12/15/2017 05/13/2018 In active metformin ER 750 mg tablet,extended release 24 hr RxNorm: 151644 2 TABLET(S) PO DAILY 11/05/2017 02/02/2018 Inactive metformin ER 750 mg tablet,extended release 24 hr RxNorm: 032705 2 TABLET(S) PO DAILY 11/03/2017 02/02/2018 Inactive atorvastatin 20 mg t ablet RxNorm: 498056 TAKE 1 TABLET BY MOUT H EVERY NIGHT AT BEDTIME FOR CHOLESTEROL 08/28/2017 08/22/2018 Inactive Zithromax Z-Maury 250 mg tablet RxNorm: 343655 1 Tablet(s) PO UD 08/15/2017 04/13/2018 Inactive Tamiflu 75 mg capsule RxNorm: 685776 1 Capsule(s) PO BID 08/15/2017 08/14/2017 Inactive Tamiflu 75 mg capsule RxNorm: 330611 1 Capsule(s) PO BID 08/15/2017 08/19/2017 Inactive Tradjenta 5 mg tablet RxNorm: 5659436 TAKE 1 TABLET BY MOUTH DAILY 08/12/2017 12/09/2017 In active metformin ER 750 mg tablet,extended release 24 hr RxNorm: 470647 TAKE 2 TABLET BY MOUT H ONCE A DAY DIRECTED 08/08/2017 No Stop Date Active SAVINGS FOR NON-COVERED MEDICATIONS Claims: BIN: [id number], PCN: [id number], GROUP: [id number], Patient ID: [id number] Phone; Questions: Your[facility] [phone] metformin ER 750 mg tablet,extended release 24 hr RxNorm: 150915 2 Tablet(s) PO daily 08/07/2017 08/06/2017 Inactive metformin ER 750 mg tablet,extended release 24 hr RxNorm: 799727 2 Tablet(s) PO daily 08/07/2017 11/02/2017 Inactive glimepiride 2 mg tablet RxNorm: 898641 TAKE 1 TABLET BY MOUTH TWICE DAILY FOR D IABETES 07/18/2017 01/10/2018 Inactive diltiazem CD 360 mg capsule,extended release 24 hr RxNorm: 045659 1 Capsule(s) PO QHS 07/03/2017 12/29/2017 Inactive One Touch Test strips RxNorm: 1 Miscellaneous daily 05/30/2017 06/28/2017 Inactive One Touch Test strips RxNorm: 1 Miscellaneous daily 05/30/2017 05/29/2017 Inactive iron gluconate-B cmp lx-potassium iodide-minerals oral RxNorm: 90123 oral No Start Date Active Super B Complex 100 tablet RxNorm: 1 Tablet(s) PO daily No Start Date Active Glucosamine Chondroi tin Maximum Strength oral RxNorm: 4845 oral No Start Date Active garlic 1,000 mg capsule RxNorm: 284613 1 Capsule(s) PO BID No Start Date Active vitamin E (dl, aceta te) 400 unit capsule RxNorm: 578109 1 Capsule(s) PO daily No Start Date Active beta carotene 25,000 unit tablet RxNorm: 041674 1 Tablet(s) PO daily No Start Date Active rutin 500 mg tablet RxNorm: 934870 1/2 Tablet(s) PO daily No Start Date Active Calcium 600 + Minera ls oral RxNorm: 299660 oral No S tart Date Active Vitamin D3 1,000 uni t tablet RxNorm: 251990 1 Tablet(s) PO daily No Start Date Active Vitamin C 500 mg tablet RxNorm: 327851 1 Tablet(s) PO daily No Start Date Active acidophilus 25 susanne on cell-pectin, citrus 100 mg tablet RxNorm: 609796 1 Tablet(s) PO BID No Start Date Active Zinc and C oral RxNorm: oral No Start Date Active aspirin 81 mg chewab le tablet RxNorm: 731075 1 Tablet(s) PO QPM No Start Date Active Zegerid OTC 20 mg-1. 1 gram capsule RxNorm: 476861 1 Capsule(s) PO daily No Start Date Active magnesium 250 mg tablet RxNorm: 1 Tablet(s) PO daily No Start Date Active flaxseed oil 1,000 m g capsule RxNorm: 569875 1 Capsule(s) PO BID No Start Date Active milk thistle 175 mg tablet RxNorm: 602782 1 Tablet(s) PO daily No Start Date Active metformin ER 750 mg tablet,extended release 24 hr RxNorm: 765740 2 Tablet(s) PO daily No Start Date 08/06/2017 Inactive atorvastatin 20 mg t ablet RxNorm: 161391 1 Tablet(s) PO daily No Start Date 08/27/2017 Inactive Tradjenta 5 mg tablet RxNorm: 7761188 1 Tablet(s) PO daily No Start Date 08/11/2017 Inactive diltiazem ER 300 mg tablet,extended release 24 hr RxNorm: 886827 1 Tablet(s) PO daily No Start Date 05/18/2017 Inactive glimepiride 2 mg tablet RxNorm: 370069 1 Tablet(s) PO BID No Start Date 07/17/2017 Inactive Zithromax Z-Maury 250 mg tablet RxNorm: 049235 1 Tablet(s) PO UD No Start Date 08/14/2017 Inactive atenolol 50 mg-chlor thalidone 25 mg tablet RxNorm: 500433 1 Tablet(s) PO daily No Start Date 12/17/2017 Inactive diltiazem CD 360 mg capsule,extended release 24 hr RxNorm: 593058 1 Capsule(s) PO QHS No Start Date 07/02/2017 Inactive Medication Administered Medication Codes Instruc tions Start Date Status Kenalog 40 mg/mL suspension for injection RxNorm: 0360024 1Milliliter 10/15/2018 N o longer Active Immunizations [...] Item Item Code Result Date Comp Metabolic Tkn917 NA 137 mEq/L 11/09/2018 Comp Metabolic Wuh205 K 4.4 mEq/L 11/09/2018 Comp Metabolic Bxi637 CL 97 mEq/L 11/09/2018 Comp Metabolic Awe559 CO2 30.0 mEq/L 11/09/2018 Comp Metabolic Fvv283 AN ION GAP 14 11/09/2018 Comp Metabolic Ayp099 GL UCOSE 122 mg/dL 11/09/2018 Comp Metabolic Dtf409 Cr eat 1.1 mg/dL 11/09/2018 Comp Metabolic Iiw057 eG FR 70 ml/min/1.73m2 11/09 Comp Metabolic Koy732 BUN 21 mg/dL 11/09/2018 Comp Metabolic Yny624 B/ C Ratio 19.6 Ratio 11/09/2018 Comp Metabolic Wpa904 CA LCIUM 10.2 mg/dL 11/09/2018 Comp Metabolic Nnc913 AL K PHOS 45 U/L 11/09/2018 Comp Metabolic Eei923 T(SGOT) 19 U/L 11/09/2018 Comp Metabolic Tuc745 AL T(SGPT) 24 U/L 11/09/2018 Comp Metabolic Mql598 BI LI T 0.5 mg/dL 11/09/2018 Comp Metabolic Iyn163 AL BUMIN 4.4 g/dL 11/09/2018 Comp Metabolic Pps936 TP RO 6.7 g/dL 11/09/2018 Comp Metabolic Jfy348 GL OB 2.3 g/dL 11/09/2018 Comp Metabolic Pnl822 A/ G Ratio 1.9 Ratio 11/09/2018 Comp Metabolic Udr736 Os mo 278 mOsmo 11/09/2018 Cbc With [...] 32.0 pg 11/09/2018 Cbc With Differential Ord2 Gratiot% 9.8 % 11/09/2018 Cbc With Differential Ord2 [...] 2.13 K/ul 11/09/2018 Cbc With Differential Ord2 [place] ABS# 0.8 K/ul 11/09/2018 Cbc With Differential Ord2 Eos ABS# 0.1 K/ul 11/09/2018 Cbc With Differential Ord2 Baso ABS# 0.0 K/ul 11/09/2018 %Hba1C Cvw581 % HbA1c 38470-7 6.7 % 11/09/2018 %Hba1C Mua688 Gluc Ave 146 mg/dL 11/09/2018 Tsh Ord6 [...] 31.4 pg 08/03/2018 Cbc With Differential Ord2 [place]% 11.9 % 08/03/2018 Cbc With Differential Ord2 [...] 1.62 K/ul 08/03/2018 Cbc With Differential Ord2 [place] ABS# 0.9 K/ul 08/03/2018 Cbc With Differential Ord2 Eos ABS# 0.1 K/ul 08/03/2018 Cbc With Differential Ord2 Baso ABS# 0.0 K/ul 08/03/2018 Comp Metabolic Opg904 NA 135 mEq/L 08/03/2018 Comp Metabolic Zzh577 K 3.5 mEq/L 08/03/2018 Comp Metabolic Nbg386 CL 95 mEq/L 08/03/2018 Comp Metabolic Gmo520 CO2 30.0 mEq/L 08/03/2018 Comp Metabolic Mxj013 AN ION GAP 14 08/03/2018 Comp Metabolic Kex736 GL UCOSE 152 mg/dL 08/03/2018 Comp Metabolic Buu620 Cr eat 1.2 mg/dL 08/03/2018 Comp Metabolic Gda148 eG FR 61 ml/min/1.73m2 08/03 Comp Metabolic Tpy388 BUN 23 mg/dL 08/03/2018 Comp Metabolic Ujh084 B/ C Ratio 19.0 Ratio 08/03/2018 Comp Metabolic Rus624 CA LCIUM 9.6 mg/dL 08/03/2018 Comp Metabolic Ncy949 AL K PHOS 51 U/L 08/03/2018 Comp Metabolic Nko695 T(SGOT) 20 U/L 08/03/2018 Comp Metabolic Jgy468 AL T(SGPT) 24 U/L 08/03/2018 Comp Metabolic Qej085 BI LI T 0.5 mg/dL 08/03/2018 Comp Metabolic Ivg521 AL BUMIN 4.3 g/dL 08/03/2018 Comp Metabolic Rit945 TP RO 6.8 g/dL 08/03/2018 Comp Metabolic Loi678 GL OB 2.6 g/dL 08/03/2018 Comp Metabolic Wij738 A/ G Ratio 1.7 Ratio 08/03/2018 Comp Metabolic Beg697 Os mo 277 mOsmo 08/03/2018 %Hba1C Pyb359 % HbA1c 39800-7 7.3 % 08/03/2018 %Hba1C Fbg127 Gluc Ave 163 mg/dL 08/03/2018 Cbc With [...] 31.2 pg 05/14/2018 Cbc With Differential Ord2 Gratiot% 12.2 % 05/14/2018 Cbc With Differential Ord2 [...] 1.81 K/ul 05/14/2018 Cbc With Differential Ord2 [place] ABS# 1.0 K/ul 05/14/2018 Cbc With Differential Ord2 Eos ABS# 0.1 K/ul 05/14/2018 Cbc With Differential Ord2 Baso ABS# 0.0 K/ul 05/14/2018 Ehrlichia Chaffeensis Antibody Igm 930373 EHRLICHIA CHAFFEENSIS IGM < 1:16 04/09/2018 Ehrlichia Chaffeensis Antibody Igg 183037 EHRLICHIA CHAFFEENSIS IGG 1:64 04/09/2018 Cyrus Spotted Fever Igg/Igm 00251 3 LOTUS MT SPOTTED FEVER IGM EIA . 04/09/2018 Cyrus Spotted Fever Igg/Igm 88763 3 RMSF, IGM 0.36 index 04/09/2018 Cyrus Spotted Fever Igg/Igm 97890 3 LOTUS NH SPOTTED FEVER IGG EIA FLEX . 04/09/2018 Cyrus Spotted Fever Igg/Igm 94126 3 RMSF, IGG SCREEN-FLEX Negative 04/09/2018 Lymes Disease Total Antibodies With Western Blot Refle x 259570 B. BURGDORFERI, IGG/IGM 0.31 04/07/2018 Lymes Disease Total Antibodies With Western Blot Refle x [id number] INTERPRETATION 04/07/2018 %Hba1C Fyr561 % HbA1c 62531-3 7.2 % 03/31/2018 %Hba1C Znz640 Gluc Ave 160 mg/dL 03/31/2018 Lipid Ord30 [...] 31.3 pg 12/22/2017 Cbc With Differential Ord2 Gratiot% 11.5 % 12/22/2017 Cbc With Differential Ord2 [...] 2.16 K/ul 12/22/2017 Cbc With Differential Ord2 [place] ABS# 1.1 K/ul 12/22/2017 Cbc With Differential Ord2 Eos ABS# 0.1 K/ul 12/22/2017 Cbc With Differential Ord2 Baso ABS# 0.0 K/ul 12/22/2017 Comp Metabolic Kia051 NA 141 mEq/L 12/22/2017 Comp Metabolic Fnf995 K 3.9 mEq/L 12/22/2017 Comp Metabolic Oak396 CL 99 mEq/L 12/22/2017 Comp Metabolic Ife468 CO2 32.0 mEq/L 12/22/2017 Comp Metabolic Qbm870 AN ION GAP 14 12/22/2017 Comp Metabolic Fst105 GL UCOSE 152 mg/dL 12/22/2017 Comp Metabolic Fbq851 Cr eat 1.0 mg/dL 12/22/2017 Comp Metabolic Kkp940 eG FR 78 ml/min/1.73m2 12/22 Comp Metabolic Qwk538 BUN 27 mg/dL 12/22/2017 Comp Metabolic Hds377 B/ C Ratio 27.8 Ratio 12/22/2017 Comp Metabolic Yvh004 CA LCIUM 9.7 mg/dL 12/22/2017 Comp Metabolic Zuh531 AL K PHOS 56 U/L 12/22/2017 Comp Metabolic Bvd276 T(SGOT) 18 U/L 12/22/2017 Comp Metabolic Rla806 AL T(SGPT) 20 U/L 12/22/2017 Comp Metabolic Ljr223 BI LI T 0.4 mg/dL 12/22/2017 Comp Metabolic Knx414 AL BUMIN 4.2 g/dL 12/22/2017 Comp Metabolic Aiu750 TP RO 6.4 g/dL 12/22/2017 Comp Metabolic Xpu579 GL OB 2.2 g/dL 12/22/2017 Comp Metabolic Dwb430 A/ G Ratio 1.9 Ratio 12/22/2017 Comp Metabolic Rng042 Os mo 289 mOsmo 12/22/2017 %Hba1C Uux195 % HbA1c 56143-9 7.1 % 12/22/2017 %Hba1C Fgk306 Gluc Ave 157 mg/dL 12/22/2017 Cbc With [...] 31.5 pg 09/22/2017 Cbc With Differential Ord2 [place]% 8.4 % 09/22/2017 Cbc With Differential Ord2 [...] 1.83 K/ul 09/22/2017 Cbc With Differential Ord2 [place] ABS# 0.9 K/ul 09/22/2017 Cbc With Differential Ord2 Eos ABS# 0.0 K/ul 09/22/2017 Cbc With Differential Ord2 Baso ABS# 0.0 K/ul 09/22/2017 %Hba1C Eld119 % HbA1c 73165-9 6.9 % 09/22/2017 %Hba1C Cas047 Gluc Ave 151 mg/dL 09/22/2017 Tsh Ord6 [...] 31.6 pg 06/17/2017 Cbc With Differential Ord2 [place]% 11.1 % 06/17/2017 Cbc With Differential Ord2 [...] 2.35 K/ul 06/17/2017 Cbc With Differential Ord2 [place] ABS# 1.2 K/ul 06/17/2017 Cbc With Differential Ord2 Eos ABS# 0.1 K/ul 06/17/2017 Cbc With Differential Ord2 Baso ABS# 0.0 K/ul 06/17/2017 %Hba1C Vai475 % HbA1c 97062-4 7.3 % 06/17/2017 %Hba1C Gfd707 Gluc Ave 163 mg/dL 06/17/2017 Comp Metabolic Ydm666 NA 137 mEq/L 06/17/2017 Comp Metabolic Eku525 K 3.8 mEq/L 06/17/2017 Comp Metabolic Vev917 CL 98 mEq/L 06/17/2017 Comp Metabolic Zgm650 CO2 30.0 mEq/L 06/17/2017 Comp Metabolic Ezy952 AN ION GAP 13 06/17/2017 Comp Metabolic Uxb316 GL UCOSE 157 mg/dL 06/17/2017 Comp Metabolic Bsh591 Cr eat 1.0 mg/dL 06/17/2017 Comp Metabolic Xla648 eG FR 76 ml/min/1.73m2 06/17 Comp Metabolic Vmn769 BUN 18 mg/dL 06/17/2017 Comp Metabolic Ecp779 B/ C Ratio 18.0 Ratio 06/17/2017 Comp Metabolic Jzc939 CA LCIUM 9.8 mg/dL 06/17/2017 Comp Metabolic Cpk787 AL K PHOS 57 U/L 06/17/2017 Comp Metabolic Glf267 T(SGOT) 19 U/L 06/17/2017 Comp Metabolic Ofy288 AL T(SGPT) 23 U/L 06/17/2017 Comp Metabolic Xyv626 BI LI T 0.6 mg/dL 06/17/2017 Comp Metabolic Cug335 AL BUMIN 4.4 g/dL 06/17/2017 Comp Metabolic Biy726 TP RO 6.8 g/dL 06/17/2017 Comp Metabolic Qyt580 GL OB 2.4 g/dL 06/17/2017 Comp Metabolic Sqo919 A/ G Ratio 1.9 Ratio 06/17/2017 Comp Metabolic Fqw062 Os mo 279 mOsmo 06/17/2017 Review of [...] skin Location: scalp 10/08/2017 AK - right orthodoxy, mid fo rehead/scalp, left posterior neck - [...] skin Location: scalp 08/27/2017 AK - right orthodoxy, mid fo rehead/scalp - cryotherapy to area, [...] CPT-4: J3301 10/15/2018 THER/PROPH/DIAG INJ SC/IM CPT-4: 66676 10/15/2018 ADMIN INFLUENZA VIRU S VAC CPT-4: G0008 06/24/2018 FLU VACC PRSV FREE I NC ANTIG CPT-4: 59256 06/24/2018 GLUC MONITOR CONT PH YS I&R CPT-4: 14981 01/27/2018 PPPS, SUBSEQ VISIT CPT- 4: G0439 01/21/2018 GLUCOSE MONITORING CONT CPT-4: 02132 01/06/2018 ADMIN INFLUENZA VIRU S VAC CPT-4: G0008 06/09/2017 FLU VACC PRSV FREE I NC ANTIG CPT-4: 63001 06/09/2017 Vital Signs Date Vital 11/16/2018 Blood Pressure 1: 154/90 Code: 8480-6 BMI: 33.1 Code: 96907-0 Heart Rate 1: 84 bpm Height: 5'8" SpO2: 96% Weight: 218 lbs 10/15/2018 Blood Pressure 1: 140/70 Code: 8480-6 BMI: 33.5 Code: 39081-7 Heart Rate 1: 72 bpm Height: 5'8" SpO2: 98% Weight: 220 lbs 08/05/2018 Blood Pressure 1: 132/56 Code: 8480-6 BMI: 34.5 Code: 64193-7 Heart Rate 1: 65 bpm Height: 5'8" SpO2: 95% Weight: 227 lbs 06/22/2018 Blood Pressure 1: 144/86 Code: 8480-6 BMI: 36.0 Code: 79755-6 Heart Rate 1: 74 bpm Height: 5'8" SpO2: 98% Weight: 237 lbs 05/14/2018 Blood Pressure 1: 132/72 Code: 8480-6 Height: Weight: 04/27/2018 Blood Pressure 1: 148/78 Code: 8480-6 BMI: 35.6 Code: 98045-8 Heart Rate 1: 77 bpm Height: 5'8" SpO2: 97% Weight: 234 lbs 04/03/2018 Blood Pressure 1: 156/80 Code: 8480-6 BMI: 35.4 Code: 88747-3 Heart Rate 1: 70 bpm Height: 5'8" SpO2: 97% Weight: 233 lbs 01/27/2018 BMI: 35.6 Code: 58322-2 Heart Rate 1: 86 bpm Height: 5'8" SpO2: 98% Weight: 234 lbs 01/21/2018 Heigh t: Weight: 01/06/2018 Heigh t: Weight: 12/31/2017 Blood Pressure 1: 140/86 Code: 8480-6 BMI: 34.2 Code: 29567-5 Heart Rate 1: 80 bpm Height: 5'8" SpO2: 98% Weight: 225 lbs 10/08/2017 Blood Pressure 1: 152/74 Code: 8480-6 BMI: 34.2 Code: 44374-3 Heart Rate 1: 67 bpm Height: 5'8" SpO2: 98% Weight: 225 lbs 08/27/2017 Blood Pressure 1: 144/82 Code: 8480-6 BMI: 34.2 Code: 57908-7 Heart Rate 1: 70 bpm Height: 5'8" SpO2: 98% Weight: 225 lbs 06/10/2017 Blood Pressure 1: 150/84 Code: 8480-6 BMI: 35.0 Code: 49971-4 Heart Rate 1: 67 bpm Height: 5'8" SpO2: 98% Weight: 230 lbs 05/20/2017 Blood Pressure 1: 146/76 Code: 8480-6 BMI: 35.3 Code: 34201-7 Heart Rate 1: 70 bpm Height: 5'8" [...] Encounters Encounter Performer Loca tion Codes Date 84487 EST. PATIENT, LEVEL III Diagnosis: Type 2 diabetes mellitus with hyperglycemia[ICD10: E11.65] Diagnosis: Essential (primary) hypertension[ICD10: I10] [facility] CPT-4: 49970 11/16/2018 72004 EST. PATIENT, LEVEL IV Diagnosis: Other acute sinusitis[ICD10: J01.80] Diagnosis: Other allergic rhinitis[ICD10: J30.89] [facility] CPT-4: 16112 10/15/2018 25185 EST. PATIENT, LEVEL III Diagnosis: Type 2 diabetes mellitus with hyperglycemia[ICD10: E11.65] Laney Guerrero MD, [facility] CPT-4: 38897 08/05/2018 95737 EST. PATIENT, LEVEL III Diagnosis: Type 2 diabetes mellitus with hyperglycemia[ICD10: E11.65] Laney Guerrero MD, [facility] CPT-4: 24724 06/22/2018 23835 EST. PATIENT, LEVEL IV Diagnosis: Diplopia[ICD10: H53.2] Diagnosis: Other specified anemias[ICD10: D64.89] Laney Guerrero MD, [facility] CPT-4: 98425 05/14/2018 99773 EST. PATIENT, LEVEL III Diagnosis: Benign paroxysmal vertigo, bilateral[ICD10: H81.13] Diagnosis: Other allergic rhinitis[ICD10: J30.89] Laney Guerrero MD, [facility] CPT-4: 17855 04/27/2018 83229 EST. PATIENT, LEVEL III Diagnosis: Type 2 diabetes mellitus with hyperglycemia[ICD10: E11.65] Diagnosis: Other fatigue[ICD10: R53.83] Diagnosis: Other malaise[ICD10: R53.81] Diagnosis: Bitten or stung by nonvenomous insect and other nonvenomous arthropods, initial encounter[ICD10: W57.XXXA] Diagnosis: Cellulitis of right upper limb[ICD10: L03.113] Diagnosis: Mixed hyperlipidemia[ICD10: E78.2] Laney Guerrero MD, [facility] CPT-4: 51177 04/03/2018 (10038) 87204 EST. P ATIENT, LEVEL III Diagnosis: Type 2 diabetes mellitus with hyperglycemia[ICD10: E11.65] Laney Guerrero MD, [facility] CPT-4: 76456 01/27/2018 ([id number]) Miscellaneou s no charge Diagnosis: Type 2 diabetes mellitus with hyperglycemia[ICD10: E11.65] Laney Guerrero MD, [facility] CPT-4: 37146 01/13/2018 35393 EST. PATIENT, LEVEL III Diagnosis: Type 2 diabetes mellitus with hyperglycemia[ICD10: E11.65] Diagnosis: Essential (primary) hypertension[ICD10: I10] Diagnosis: Mixed hyperlipidemia[ICD10: E78.2] Laney Guerrero MD, [facility] CPT-4: 30777 12/31/2017 19824 EST. PATIENT, LEVEL III Diagnosis: Type 2 diabetes mellitus with hyperglycemia[ICD10: E11.65] Diagnosis: Essential (primary) hypertension[ICD10: I10] Diagnosis: Mixed hyperlipidemia[ICD10: E78.2] Diagnosis: Actinic keratosis[ICD10: L57.0] Laney Guerrero MD, [facility] CPT-4: 57077 10/08/2017 48689 EST. PATIENT, LEVEL III Diagnosis: Type 2 diabetes mellitus with hyperglycemia[ICD10: E11.65] Diagnosis: Essential (primary) hypertension[ICD10: I10] Diagnosis: Mixed hyperlipidemia[ICD10: E78.2] Diagnosis: Actinic keratosis[ICD10: L57.0] Laney Guerrero MD, [facility] CPT-4: 40409 08/27/2017 01522 EST. PATIENT, LEVEL III Diagnosis: Type 2 diabetes mellitus with hyperglycemia[ICD10: E11.65] Diagnosis: Essential (primary) hypertension[ICD10: I10] Diagnosis: Mixed hyperlipidemia[ICD10: E78.2] Laney Guerrero MD, [facility] CPT-4: 26528 06/25/2017 (30524) 23932 EST. 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 11/16/2018 Appointment: Karo Guerrero WPtel: [phone] [facility] (15 min) Moderate 11/16/2018 Appointment: Laney Luther WPtel: [facility] [place] (30 min) Complex 11/16/2018 Patient Education: Patient Medication Summary Completed 11/16/2018 Patient Education: Diabetes Completed 11/16/2018 Appointment: Laney Luther WPtel: [facility] [place] (15 min) Moderate 11/02/2018 Patient Education: [...] spray. 10/15/2018 Appointment: Laney Luther WPtel: [phone] [facility] (30 min) Complex 10/15/2018 Patient Education: [...] glucose control. 08/05/2018 Appointment: Laney Luther WPtel: [phone] [facility] (15 min) Moderate 08/05/2018 Patient Education: Patient Medication Summary Completed 08/05/2018 Appointment: Laney Luther WPtel: [phone] [facility] (15 min) [...] control. 06/22/2018 Appointment: Laney Luther WPtel: [phone] [facility] (15 min) Moderate 06/22/2018 Patient Education: Patient Medication Summary Completed 06/22/2018 Patient Education: Diabetes Completed 06/22/2018 Care Plan: Referral Order SNOMED-CT : [id number] Pending 06/22/2018 [facility] Ref[facility] Initiated 06/02/2018 Appointment: Nurse Visit 05/18/2018 [...] concerns. 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 04/03/2018 [phone] [facility] ([facility] min) Moderate 04/03/2018 Patient Education: Patient Medication Summary Completed 04/03/2018 App[facility]ment: [facility] [phone] [facility] [place] (30 min) Complex 03/31/2018 Patient [...] control. 01/27/2018 App[facility]ment: [phone] [facility] (30 min) Complex 01/27/2018 Patient Education: [...] Completed 01/21/2018 [phone] [facility] (15 min) Moderate 01/13/2018 Patient Education: [...] control. 01/06/2018 App[phone] [facility] (15 min) Moderate 01/06/2018 Patient Education: [...] medications. 12/31/2017 App[facility]: [phone] [facility] (30 min) Complex 12/31/2017 Patient Education: [...] concerns. 10/08/2017 App[phone] [facility] ([facility] min) Complex 10/08/2017 Patient Education: Patient Medication Summary Completed 10/08/2017 App[facility]ment: [phone] [facility] (15 min) Moderate 10/07/2017 Visit Plan: [...] acute concerns. 08/27/2017 App[facility]ment: [facility] [phone] [facility] ([facility] min) [facility] 08/27/2017 Patient Education: Patient Medication [...] medications. 06/25/2017 Appointment: [phone] [facility] (30 min) Complex 06/25/2017 Patient Education: Patient Medication Summary Completed 06/25/2017 Appointment: Debra Ramirez WPtel: [phone] [phone] (30 min) Complex 06/24/2017 Visit Plan: [...] medications. 06/10/2017 App[facility]ment: [id number] (30 min) Complex 06/10/2017 Patient Education: [...] glucose control. 05/20/2017 App[facility]ment: Lane[facility] Luther [phone] [id number] New Patient 05/20/2017 Patient Education: Patient Medication Summary Completed 05/20/2017 [id number] Ref[facility] Initiated Referral: Kevin Cuevas Referral [...] blood glucose control. GET RECENT [facility] [facility]S NEXT WEEK UNLESS [...]
--- OUTSIDE RECORDS SUMMARY | 2020-02-09 07:14 | XMS REPORT | CCD ---
Author Author Gunnar Luther Organization Karo Guerrero MD, 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 Name Role Phone PP Unavailable CCM Unavailable Summary Purpose Interface Exchange Insurance Providers Payer name Policy type / Coverage type Covered alliance party ID Effective Begin Date Effective End Date WPS Medicare Part B Medicare Part B [id number] Unknown Aetna Medicare Part B AH [id number] Unknown Cigna Medicare Part B 80 [id number] Unknown Family history Sister Diagnosis Age At [...] ed reddy 05/20/[address]: 463870382 Never smoker 05/20/[address]: 843543749 Never drinks alcohol 05/20/2017 Allergies, Adverse Reactions, Alerts Substance Reaction Codes Entered Date Inactivated Date Status Penicillin Unknown 05/20/2017 No In active Date Active PENICILLINS Unknown 05/20/2017 No In active Date Active Past Medical History Illness Codes Condition Status Onset Date Resolved Date Essential (primary) hypertension ICD-9: 401.1 ICD-10: I10 Active 05/20/2017 Unknown Mixed hyperlipidemia ICD-9: 272.2 ICD-10: E78.2 Active 06/10/2017 Unknown Type 2 diabetes stevo itus with hyperglycemia ICD-9: 250.02 ICD-10: E11.65 Active 05/20/2017 Unknown Other acute sinusitis ICD-9: 461.8 ICD-10: [...] hypertension ICD-9: 401.1 ICD-10: I10 05/20/2017 Active Mixed hyperlipidemia ICD-9: 272.2 ICD-10: E78.2 06/10/2017 Active Type 2 diabetes stevo itus with hyperglycemia ICD-9: 250.02 ICD-10: E11.65 05/20/2017 Active Other acute sinusitis ICD-9: 461.8 ICD-10: [...] 750 mg tablet,extended release 24 hr RxNorm: 608038 2 TABLET(S) PO DAILY 11/13/2018 03/12/2019 Ac tive Tradjenta 5 mg tablet RxNorm: 4222546 TAKE 1 TABLET BY MOUTH DAILY 10/16/2018 03/14/2019 Ac tive Kenalog 40 mg/mL benitez pension for injection RxNorm: 4849469 1 Milliliter(s) Inj 10/15/2018 10/15/2018 In active Tradjenta 5 mg tablet RxNorm: 9745176 TAKE 1 TABLET BY MOUTH DAILY 09/18/2018 02/14/2019 Ac tive metformin ER 750 mg tablet,extended release 24 hr RxNorm: 482499 2 TABLET(S) PO DAILY 07/13/2018 11/09/2018 Inactive Tradjenta 5 mg tablet RxNorm: 7372506 TAKE 1 TABLET BY MOUTH DAILY 07/02/2018 09/17/2018 In active One Touch Test strips RxNorm: 1 Miscellaneous BID 06/29/2018 07/28/2018 Inactive Zyrtec 10 mg tablet RxNorm: 7597964 1 Tablet(s) PO daily 04/27/2018 05/26/2018 Inactive doxycycline hyclate 100 mg capsule RxNorm: 6847205 1 Capsule(s) PO BID 04/03/2018 04/12/2018 In active meclizine 25 mg tablet RxNorm: 626845 1 Tablet(s) PO TID as needed Dizziness 04/03/2018 04/07/2018 In active metformin ER 750 mg tablet,extended release 24 hr RxNorm: 725455 2 TABLET(S) PO DAILY 02/03/2018 06/02/2018 Inactive glimepiride 2 mg tablet RxNorm: 105222 TAKE 1 TABLET BY MOUTH TWICE DAILY FOR D IABETES 01/13/2018 04/07/2019 Active glimepiride 2 mg tablet RxNorm: 172200 TAKE 1 TABLET BY MOUTH TWICE DAILY FOR D IABETES 01/11/2018 01/05/2019 Active diltiazem CD 360 mg capsule,extended release 24 hr RxNorm: 685030 1 CAPSULE(S) PO QHS 01/02/2018 12/27/2018 Ac tive atenolol 50 mg-chlor thalidone 25 mg tablet RxNorm: 292194 1 Tablet(s) PO daily 12/18/2017 12/12/2018 Ac tive PLEASE SEND REFILL REQUESTS ELECTRONICAL LY Tradjenta 5 mg tablet RxNorm: 4711390 TAKE 1 TABLET BY MOUTH DAILY 12/15/2017 05/13/2018 In active metformin ER 750 mg tablet,extended release 24 hr RxNorm: 778942 2 TABLET(S) PO DAILY 11/05/2017 02/02/2018 Inactive metformin ER 750 mg tablet,extended release 24 hr RxNorm: 953879 2 TABLET(S) PO DAILY 11/03/2017 02/02/2018 Inactive atorvastatin 20 mg t ablet RxNorm: 110929 TAKE 1 TABLET BY MOUT H EVERY NIGHT AT BEDTIME FOR CHOLESTEROL 08/28/2017 08/22/2018 Inactive Zithromax Z-Maury 250 mg tablet RxNorm: 110875 1 Tablet(s) PO UD 08/15/2017 04/13/2018 Inactive Tamiflu 75 mg capsule RxNorm: 215998 1 Capsule(s) PO BID 08/15/2017 08/14/2017 Inactive Tamiflu 75 mg capsule RxNorm: 138442 1 Capsule(s) PO BID 08/15/2017 08/19/2017 Inactive Tradjenta 5 mg tablet RxNorm: 3849109 TAKE 1 TABLET BY MOUTH DAILY 08/12/2017 12/09/2017 In active metformin ER 750 mg tablet,extended release 24 hr RxNorm: 321056 TAKE 2 TABLET BY MOUT H ONCE A DAY DIRECTED 08/08/2017 No Stop Date Active SAVINGS FOR NON-COVERED MEDICATIONS Claims: BIN: [id number], PCN: [id number], GROUP: [id number], Patient ID: [id number] Phone; Questions: [facility] [phone] metformin ER 750 mg tablet,extended release 24 hr RxNorm: 657713 2 Tablet(s) PO daily 08/07/2017 08/06/2017 Inactive metformin ER 750 mg tablet,extended release 24 hr RxNorm: 688388 2 Tablet(s) PO daily 08/07/2017 11/02/2017 Inactive glimepiride 2 mg tablet RxNorm: 283969 TAKE 1 TABLET BY MOUTH TWICE DAILY FOR D IABETES 07/18/2017 01/10/2018 Inactive diltiazem CD 360 mg capsule,extended release 24 hr RxNorm: 857840 1 Capsule(s) PO QHS 07/03/2017 12/29/2017 Inactive One Touch Test strips RxNorm: 1 Miscellaneous daily 05/30/2017 06/28/2017 Inactive One Touch Test strips RxNorm: 1 Miscellaneous daily 05/30/2017 05/29/2017 Inactive iron gluconate-B cmp lx-potassium iodide-minerals oral RxNorm: 85014 oral No Start Date Active Super B Complex 100 tablet RxNorm: 1 Tablet(s) PO daily No Start Date Active Glucosamine Chondroi tin Maximum Strength oral RxNorm: 4845 oral No Start Date Active garlic 1,000 mg capsule RxNorm: 513076 1 Capsule(s) PO BID No Start Date Active vitamin E (dl, aceta te) 400 unit capsule RxNorm: 644036 1 Capsule(s) PO daily No Start Date Active beta carotene 25,000 unit tablet RxNorm: 113434 1 Tablet(s) PO daily No Start Date Active rutin 500 mg tablet RxNorm: 844029 1/2 Tablet(s) PO daily No Start Date Active Calcium 600 + [place] ls oral RxNorm: 490870 oral No S tart Date Active Vitamin D3 1,000 uni t tablet RxNorm: 379910 1 Tablet(s) PO daily No Start Date Active Vitamin C 500 mg tablet RxNorm: 960064 1 Tablet(s) PO daily No Start Date Active acidophilus 25 susanne on cell-pectin, citrus 100 mg tablet RxNorm: 326244 1 Tablet(s) PO BID No Start Date Active Zinc and C oral RxNorm: oral No Start Date Active aspirin 81 mg chewab le tablet RxNorm: 369964 1 Tablet(s) PO QPM No Start Date Active Zegerid OTC 20 mg-1. 1 gram capsule RxNorm: 855215 1 Capsule(s) PO daily No Start Date Active magnesium 250 mg tablet RxNorm: 1 Tablet(s) PO daily No Start Date Active flaxseed oil 1,000 m g capsule RxNorm: 852668 1 Capsule(s) PO BID No Start Date Active milk thistle 175 mg tablet RxNorm: 768157 1 Tablet(s) PO daily No Start Date Active metformin ER 750 mg tablet,extended release 24 hr RxNorm: 892169 2 Tablet(s) PO daily No Start Date 08/06/2017 Inactive atorvastatin 20 mg t ablet RxNorm: 381124 1 Tablet(s) PO daily No Start Date 08/27/2017 Inactive Tradjenta 5 mg tablet RxNorm: 4959083 1 Tablet(s) PO daily No Start Date 08/11/2017 Inactive diltiazem ER 300 mg tablet,extended release 24 hr RxNorm: 627387 1 Tablet(s) PO daily No Start Date 05/18/2017 Inactive glimepiride 2 mg tablet RxNorm: 921247 1 Tablet(s) PO BID No Start Date 07/17/2017 Inactive Zithromax Z-Maury 250 mg tablet RxNorm: 877754 1 Tablet(s) PO UD No Start Date 08/14/2017 Inactive atenolol 50 mg-chlor thalidone 25 mg tablet RxNorm: 346805 1 Tablet(s) PO daily No Start Date 12/17/2017 Inactive diltiazem CD 360 mg capsule,extended release 24 hr RxNorm: 294896 1 Capsule(s) PO QHS No Start Date 07/02/2017 Inactive Medication Administered Medication Codes Instruc tions Start Date Status Kenalog 40 mg/mL suspension for injection RxNorm: 8065492 1Milliliter 10/15/2018 N o longer Active Immunizations Vaccine Codes Date Status Influenza CVX: 141 06/24 completed Influenza CVX: 141 06/09 completed Assessments Condition Codes Effectiv e Dates Essential (primary) hypertension ICD -10: I10 ICD-9: 401.1 10/21/2018 Type 2 diabetes mellitus with hyperglycemia ICD-10: E11.65 ICD-9: 250.02 10/21/2018 Mixed hyperlipidemia ICD-10: E78.2 ICD-9: 272.2 10/21/2018 [...] Visit Reason For Visit Effective Dates Notes sinus congestion 10/15/2018 diabetes mellitus 08/05/2018 vaccination [...] Item Item Code Result Date Comp Metabolic Mgf422 NA 137 mEq/L 11/09/2018 Comp Metabolic Hqj390 K 4.4 mEq/L 11/09/2018 Comp Metabolic Mmz347 CL 97 mEq/L 11/09/2018 Comp Metabolic Eum014 CO2 30.0 mEq/L 11/09/2018 Comp Metabolic Qeu597 AN ION GAP 14 11/09/2018 Comp Metabolic Drr394 GL UCOSE 122 mg/dL 11/09/2018 Comp Metabolic Biz498 Cr eat 1.1 mg/dL 11/09/2018 Comp Metabolic Gcs852 eG FR 70 ml/min/1.73m2 11/09 Comp Metabolic Fud985 BUN 21 mg/dL 11/09/2018 Comp Metabolic Xvj304 B/ C Ratio 19.6 Ratio 11/09/2018 Comp Metabolic Wle767 CA LCIUM 10.2 mg/dL 11/09/2018 Comp Metabolic Obd941 AL K PHOS 45 U/L 11/09/2018 Comp Metabolic Gjf955 T(SGOT) 19 U/L 11/09/2018 Comp Metabolic Dol736 AL T(SGPT) 24 U/L 11/09/2018 Comp Metabolic Vbw933 BI LI T 0.5 mg/dL 11/09/2018 Comp Metabolic Rhi003 AL BUMIN 4.4 g/dL 11/09/2018 Comp Metabolic Vwe104 TP RO 6.7 g/dL 11/09/2018 Comp Metabolic Tbv018 GL OB 2.3 g/dL 11/09/2018 Comp Metabolic Czq471 A/ G Ratio 1.9 Ratio 11/09/2018 Comp Metabolic Xfq936 Os mo 278 mOsmo 11/09/2018 Cbc With [...] 32.0 pg 11/09/2018 Cbc With Differential Ord2 [place]% 9.8 % 11/09/2018 Cbc With Differential Ord2 [...] 2.13 K/ul 11/09/2018 Cbc With Differential Ord2 [place] ABS# 0.8 K/ul 11/09/2018 Cbc With Differential Ord2 Eos ABS# 0.1 K/ul 11/09/2018 Cbc With Differential Ord2 Baso ABS# 0.0 K/ul 11/09/2018 %Hba1C Czk691 % HbA1c 66902-9 6.7 % 11/09/2018 %Hba1C Jsq991 Gluc Ave 146 mg/dL 11/09/2018 Tsh Ord6 [...] 31.4 pg 08/03/2018 Cbc With Differential Ord2 [place]% 11.9 % 08/03/2018 Cbc With Differential Ord2 [...] 1.62 K/ul 08/03/2018 Cbc With Differential Ord2 [place] ABS# 0.9 K/ul 08/03/2018 Cbc With Differential Ord2 Eos ABS# 0.1 K/ul 08/03/2018 Cbc With Differential Ord2 Baso ABS# 0.0 K/ul 08/03/2018 Comp Metabolic Njk493 NA 135 mEq/L 08/03/2018 Comp Metabolic Zex722 K 3.5 mEq/L 08/03/2018 Comp Metabolic Mxc350 CL 95 mEq/L 08/03/2018 Comp Metabolic Rnv782 CO2 30.0 mEq/L 08/03/2018 Comp Metabolic Suo618 AN ION GAP 14 08/03/2018 Comp Metabolic Utu770 GL UCOSE 152 mg/dL 08/03/2018 Comp Metabolic Ivq517 Cr eat 1.2 mg/dL 08/03/2018 Comp Metabolic Mfo322 eG FR 61 ml/min/1.73m2 08/03 Comp Metabolic Lzq036 BUN 23 mg/dL 08/03/2018 Comp Metabolic Ifj763 B/ C Ratio 19.0 Ratio 08/03/2018 Comp Metabolic Ycn033 CA LCIUM 9.6 mg/dL 08/03/2018 Comp Metabolic Eig871 AL K PHOS 51 U/L 08/03/2018 Comp Metabolic Szy141 T(SGOT) 20 U/L 08/03/2018 Comp Metabolic Rvh888 AL T(SGPT) 24 U/L 08/03/2018 Comp Metabolic Kod464 BI LI T 0.5 mg/dL 08/03/2018 Comp Metabolic Ejl292 AL BUMIN 4.3 g/dL 08/03/2018 Comp Metabolic Sga246 TP RO 6.8 g/dL 08/03/2018 Comp Metabolic Jxe937 GL OB 2.6 g/dL 08/03/2018 Comp Metabolic Kvi675 A/ G Ratio 1.7 Ratio 08/03/2018 Comp Metabolic Clg767 Os mo 277 mOsmo 08/03/2018 %Hba1C Pgr435 % HbA1c 41275-7 7.3 % 08/03/2018 %Hba1C Wsd823 Gluc Ave 163 mg/dL 08/03/2018 Cbc With [...] 31.2 pg 05/14/2018 Cbc With Differential Ord2 [place]% 12.2 % 05/14/2018 Cbc With Differential Ord2 [...] 1.81 K/ul 05/14/2018 Cbc With Differential Ord2 [place] ABS# 1.0 K/ul 05/14/2018 Cbc With Differential Ord2 Eos ABS# 0.1 K/ul 05/14/2018 Cbc With Differential Ord2 Baso ABS# 0.0 K/ul 05/14/2018 Ehrlichia Chaffeensis Antibody Igm [id number] EHRLICHIA CHAFFEENSIS IGM < 1:16 04/09/2018 Ehrlichia Chaffeensis Antibody Igg [id number] EHRLICHIA CHAFFEENSIS IGG 1:64 04/09/2018 [place] Spotted Fever Igg/Igm 85631 3 LOTUS MT SPOTTED FEVER IGM EIA . 04/09/2018 [place] Spotted Fever Igg/Igm 97559 3 RMSF, IGM 0.36 index 04/09/2018 [place] Spotted Fever Igg/Igm 17492 3 LOTUS SD SPOTTED FEVER IGG EIA FLEX . 04/09/2018 [place] Spotted Fever Igg/Igm 90492 3 RMSF, IGG SCREEN-FLEX Negative 04/09/2018 Lymes Disease Total Antibodies With Western Blot Refle x [id number] B. BURGDORFERI, IGG/IGM 0.31 04/07/2018 [place]ymes Disease Total Antibodies With Western Blot Refle x [id number] INTERPRETATION 04/07/2018 %Hba1C Afg479 % HbA1c 52938-5 7.2 % 03/31/2018 %Hba1C Snx636 Gluc Ave 160 mg/dL 03/31/2018 Lipid Ord30 [...] 31.3 pg 12/22/2017 Cbc With Differential Ord2 [place]% 11.5 % 12/22/2017 Cbc With Differential Ord2 [...] 2.16 K/ul 12/22/2017 Cbc With Differential Ord2 [place] ABS# 1.1 K/ul 12/22/2017 Cbc With Differential Ord2 Eos ABS# 0.1 K/ul 12/22/2017 Cbc With Differential Ord2 Baso ABS# 0.0 K/ul 12/22/2017 Comp Metabolic Dse390 NA 141 mEq/L 12/22/2017 Comp Metabolic Dwb885 K 3.9 mEq/L 12/22/2017 Comp Metabolic Eus364 CL 99 mEq/L 12/22/2017 Comp Metabolic Daj243 CO2 32.0 mEq/L 12/22/2017 Comp Metabolic Zrn525 AN ION GAP 14 12/22/2017 Comp Metabolic Afx978 GL UCOSE 152 mg/dL 12/22/2017 Comp Metabolic Uhl247 Cr eat 1.0 mg/dL 12/22/2017 Comp Metabolic Dkz465 eG FR 78 ml/min/1.73m2 12/22 Comp Metabolic Sbx470 BUN 27 mg/dL 12/22/2017 Comp Metabolic Vix696 B/ C Ratio 27.8 Ratio 12/22/2017 Comp Metabolic Fqj814 CA LCIUM 9.7 mg/dL 12/22/2017 Comp Metabolic Som329 AL K PHOS 56 U/L 12/22/2017 Comp Metabolic Uev181 T(SGOT) 18 U/L 12/22/2017 Comp Metabolic Iaw809 AL T(SGPT) 20 U/L 12/22/2017 Comp Metabolic Zxt884 BI LI T 0.4 mg/dL 12/22/2017 Comp Metabolic Uuy874 AL BUMIN 4.2 g/dL 12/22/2017 Comp Metabolic Sxb654 TP RO 6.4 g/dL 12/22/2017 Comp Metabolic Kmn305 GL OB 2.2 g/dL 12/22/2017 Comp Metabolic Mdr775 A/ G Ratio 1.9 Ratio 12/22/2017 Comp Metabolic Opi749 Os mo 289 mOsmo 12/22/2017 %Hba1C Kti753 % HbA1c 23916-0 7.1 % 12/22/2017 %Hba1C Kie297 Gluc Ave 157 mg/dL 12/22/2017 Cbc With [...] 31.5 pg 09/22/2017 Cbc With Differential Ord2 [place]% 8.4 % 09/22/2017 Cbc With Differential Ord2 [...] 1.83 K/ul 09/22/2017 Cbc With Differential Ord2 [place] ABS# 0.9 K/ul 09/22/2017 Cbc With Differential Ord2 Eos ABS# 0.0 K/ul 09/22/2017 Cbc With Differential Ord2 Baso ABS# 0.0 K/ul 09/22/2017 %Hba1C Xgk555 % HbA1c 38596-7 6.9 % 09/22/2017 %Hba1C Pjx380 Gluc Ave 151 mg/dL 09/22/2017 Tsh Ord6 [...] 31.6 pg 06/17/2017 Cbc With Differential Ord2 [place]% 11.1 % 06/17/2017 Cbc With Differential Ord2 [...] 2.35 K/ul 06/17/2017 Cbc With Differential Ord2 [place] ABS# 1.2 K/ul 06/17/2017 Cbc With Differential Ord2 Eos ABS# 0.1 K/ul 06/17/2017 Cbc With Differential Ord2 Baso ABS# 0.0 K/ul 06/17/2017 %Hba1C Miw607 % HbA1c 20128-6 7.3 % 06/17/2017 %Hba1C Lxb242 Gluc Ave 163 mg/dL 06/17/2017 Comp Metabolic Mku326 NA 137 mEq/L 06/17/2017 Comp Metabolic Anl721 K 3.8 mEq/L 06/17/2017 Comp Metabolic Rzv039 CL 98 mEq/L 06/17/2017 Comp Metabolic Yqm993 CO2 30.0 mEq/L 06/17/2017 Comp Metabolic Xlx938 AN ION GAP 13 06/17/2017 Comp Metabolic Etq088 GL UCOSE 157 mg/dL 06/17/2017 Comp Metabolic Ply411 Cr eat 1.0 mg/dL 06/17/2017 Comp Metabolic Xei187 eG FR 76 ml/min/1.73m2 06/17 Comp Metabolic Nrn095 BUN 18 mg/dL 06/17/2017 Comp Metabolic Bnw741 B/ C Ratio 18.0 Ratio 06/17/2017 Comp Metabolic Nti346 CA LCIUM 9.8 mg/dL 06/17/2017 Comp Metabolic Yac629 AL K PHOS 57 U/L 06/17/2017 Comp Metabolic Lvp902 T(SGOT) 19 U/L 06/17/2017 Comp Metabolic Uwa912 AL T(SGPT) 23 U/L 06/17/2017 Comp Metabolic Wze698 BI LI T 0.6 mg/dL 06/17/2017 Comp Metabolic Jrl458 AL BUMIN 4.4 g/dL 06/17/2017 Comp Metabolic Ula313 TP RO 6.8 g/dL 06/17/2017 Comp Metabolic Ijp012 GL OB 2.4 g/dL 06/17/2017 Comp Metabolic Aov264 A/ G Ratio 1.9 Ratio 06/17/2017 Comp Metabolic Dmn702 Os mo 279 mOsmo 06/17/2017 Review of Systems System Result Effective Dates Constitutional recent illness 10/15/2018 Constitutional No chills [...] Result Effective Dates Notes Full Exam - ENT Constitutional general appearance [...] lips 08/05/2018 None Full Exam - General 1995 Ears/Nose/Throat [...] skin Location: scalp 10/08/2017 [place] - right catholic, mid fo rehead/scalp, left posterior neck - [...] skin Location: scalp 08/27/2017 [place] - right catholic, mid fo rehead/scalp - cryotherapy to area, [...] CPT-4: J3301 10/15/2018 THER/PROPH/DIAG INJ SC/IM CPT-4: 17785 10/15/2018 ADMIN INFLUENZA VIRU S VAC CPT-4: G0008 06/24/2018 FLU VACC PRSV FREE I NC ANTIG CPT-4: 99477 06/24/2018 GLUC MONITOR CONT PH YS I&R CPT-4: 32862 01/27/2018 PPPS, SUBSEQ VISIT CPT- 4: G0439 01/21/2018 GLUCOSE MONITORING CONT CPT-4: 68543 01/06/2018 ADMIN INFLUENZA VIRU S VAC CPT-4: G0008 06/09/2017 FLU VACC PRSV FREE I NC ANTIG CPT-4: 31593 06/09/2017 Vital Signs Date Vital 10/15/2018 Blood Pressure 1: 140/70 Code: 8480-6 BMI: 33.5 Code: 39824-8 Heart Rate 1: 72 bpm Height: 5'8" SpO2: 98% Weight: 220 lbs 08/05/2018 Blood Pressure 1: 132/56 Code: 8480-6 BMI: 34.5 Code: 71793-1 Heart Rate 1: 65 bpm Height: 5'8" SpO2: 95% Weight: 227 lbs 06/22/2018 Blood Pressure 1: 144/86 Code: 8480-6 BMI: 36.0 Code: 76395-6 Heart Rate 1: 74 bpm Height: 5'8" SpO2: 98% Weight: 237 lbs 05/14/2018 Blood Pressure 1: 132/72 Code: 8480-6 Height: Weight: 04/27/2018 Blood Pressure 1: 148/78 Code: 8480-6 BMI: 35.6 Code: 78944-2 Heart Rate 1: 77 bpm Height: 5'8" SpO2: 97% Weight: 234 lbs 04/03/2018 Blood Pressure 1: 156/80 Code: 8480-6 BMI: 35.4 Code: 19636-2 Heart Rate 1: 70 bpm Height: 5'8" SpO2: 97% Weight: 233 lbs 01/27/2018 BMI: 35.6 Code: 66341-0 Heart Rate 1: 86 bpm Height: 5'8" SpO2: 98% Weight: 234 lbs 01/21/2018 Heigh t: Weight: 01/06/2018 Heigh t: Weight: 12/31/2017 Blood Pressure 1: 140/86 Code: 8480-6 BMI: 34.2 Code: 77110-3 Heart Rate 1: 80 bpm Height: 5'8" SpO2: 98% Weight: 225 lbs 10/08/2017 Blood Pressure 1: 152/74 Code: 8480-6 BMI: 34.2 Code: 78274-7 Heart Rate 1: 67 bpm Height: 5'8" SpO2: 98% Weight: 225 lbs 08/27/2017 Blood Pressure 1: 144/82 Code: 8480-6 BMI: 34.2 Code: 81903-3 Heart Rate 1: 70 bpm Height: 5'8" SpO2: 98% Weight: 225 lbs 06/10/2017 Blood Pressure 1: 150/84 Code: 8480-6 BMI: 35.0 Code: 96668-0 Heart Rate 1: 67 bpm Height: 5'8" SpO2: 98% Weight: 230 lbs 05/20/2017 Blood Pressure 1: 146/76 Code: 8480-6 BMI: 35.3 Code: 90429-0 Heart Rate 1: 70 bpm Height: 5'8" SpO2: 98% Weight: 232 lbs Functional Status No Functional Status data History of Present Illness Symptom Name Status Resu lt Effective Date Notes Location maxillary sin uses 10/15/2018 None Quality [...] Encounters Encounter Performer Loca tion Codes Date 98102 EST. PATIENT, LEVEL IV Diagnosis: Other acute sinusitis[ICD10: J01.80] Diagnosis: Other allergic rhinitis[ICD10: J30.89] Laney Guerrero MD, [facility] CPT-4: 38007 10/15/2018 98358 EST. PATIENT, LEVEL III Diagnosis: Type 2 diabetes mellitus with hyperglycemia[ICD10: E11.65] Laney Guerrero MD, [facility] CPT-4: 44006 08/05/2018 05553 EST. PATIENT, LEVEL III Diagnosis: Type 2 diabetes mellitus with hyperglycemia[ICD10: E11.65] Laney Guerrero MD, [facility] CPT-4: 91473 06/22/2018 22792 EST. PATIENT, LEVEL IV Diagnosis: Diplopia[ICD10: H53.2] Diagnosis: Other specified anemias[ICD10: D64.89] Laney Guerrero MD, [facility] CPT-4: 82427 05/14/2018 71589 EST. PATIENT, LEVEL III Diagnosis: Benign paroxysmal vertigo, bilateral[ICD10: H81.13] Diagnosis: Other allergic rhinitis[ICD10: J30.89] Laney Guerrero MD, [facility] CPT-4: 45597 04/27/2018 94412 EST. PATIENT, LEVEL III Diagnosis: Type 2 diabetes mellitus with hyperglycemia[ICD10: E11.65] Diagnosis: Other fatigue[ICD10: R53.83] Diagnosis: Other malaise[ICD10: R53.81] Diagnosis: Bitten or stung by nonvenomous insect and other nonvenomous arthropods, initial encounter[ICD10: W57.XXXA] Diagnosis: Cellulitis of right upper limb[ICD10: L03.113] Diagnosis: Mixed hyperlipidemia[ICD10: E78.2] Laney Guerrero MD, [facility] CPT-4: 84703 04/03/2018 ([id number]) 72586 EST. P ATIENT, LEVEL III Diagnosis: Type 2 diabetes mellitus with hyperglycemia[ICD10: E11.65] Laney Guerrero MD, [facility] CPT-4: 87642 01/27/2018 ([id number]) Miscellaneou s no charge Diagnosis: Type 2 diabetes mellitus with hyperglycemia[ICD10: E11.65] Laney Guerrero MD, [facility] CPT-4: 10141 01/13/2018 73883 EST. PATIENT, LEVEL III Diagnosis: Type 2 diabetes mellitus with hyperglycemia[ICD10: E11.65] Diagnosis: Essential (primary) hypertension[ICD10: I10] Diagnosis: Mixed hyperlipidemia[ICD10: E78.2] Laney Guerrero MD, [facility] CPT-4: 66140 12/31/2017 04968 EST. PATIENT, LEVEL III Diagnosis: Type 2 diabetes mellitus with hyperglycemia[ICD10: E11.65] Diagnosis: Essential (primary) hypertension[ICD10: I10] Diagnosis: Mixed hyperlipidemia[ICD10: E78.2] Diagnosis: Actinic keratosis[ICD10: L57.0] Laney Guerrero MD, [facility] CPT-4: 28411 10/08/2017 00783 EST. PATIENT, LEVEL III Diagnosis: Type 2 diabetes mellitus with hyperglycemia[ICD10: E11.65] Diagnosis: Essential (primary) hypertension[ICD10: I10] Diagnosis: Mixed hyperlipidemia[ICD10: E78.2] Diagnosis: Actinic keratosis[ICD10: L57.0] Laney Guerrero MD, [facility] CPT-4: 26227 08/27/2017 46225 EST. PATIENT, LEVEL III Diagnosis: Type 2 diabetes mellitus with hyperglycemia[ICD10: E11.65] Diagnosis: Essential (primary) hypertension[ICD10: I10] Diagnosis: Mixed hyperlipidemia[ICD10: E78.2] [facility] CPT-4: 88015 06/25/2017 ([id number]) 20507 EST. 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 10/15/2018 Appointment: Laney Luther WPtel: [address] [place], [place] [id number] (30 min) Complex 10/15/2018 Patient Education: Patient [...] control. 08/05/2018 Appointment: Laney Luther WPtel: [phone] [facility] (15 min) Moderate 08/05/2018 Patient Education: Patient Medication Summary Completed 08/05/2018 Appointment: Laney Luther WPtel: [phone] [facility] (15 min) Moderate 07/17/2018 [...] control. 06/22/2018 Appointment: Laney Luther WPtel: [phone] [facility] (15 min) Moderate 06/22/2018 Patient Education: Patient Medication Summary Completed 06/22/2018 Patient Education: Diabetes Completed 06/22/2018 Care Plan: Referral Order SNOMED-CT : [id number] Pending 06/22/2018 [id number] [facility] Initiated 06/02/2018 Appointment: Nurse Visit [...] or concerns. 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 04/03/2018 Appointment: [phone] [facility] (15 min) Moderate 04/03/2018 Patient Education: Patient Medication Summary Completed 04/03/2018 Appointment: [phone] [facility] (30 min) Complex 03/31/2018 Patient Education: Patient [...] control. 01/27/2018 Appointment: [phone] [facility] [place] (30 min) Complex 01/27/2018 Patient Education: Patient [...] Summary Completed 01/21/2018 Appointment: Laney Luther WPtel: [address] [place], [place] [id number] (15 min) Moderate 01/13/2018 Patient Education: Patient [...] control. 01/06/2018 Appointment: [phone] [facility] ([facility] min) Moderate 01/06/2018 Patient Education: Patient [...] to medications. 12/31/2017 [facility]ment[id number] ([facility] min) Complex 12/31/2017 Patient Education: Patient [...] any other acute concerns. 10/08/2017 Appointment: Laney Luther: [phone] [id number] (30 min) Complex 10/08/2017 Patient Education: Patient Medication Summary Completed 10/08/2017 [id number] ([facility]) Moderate 10/07/2017 Visit Plan: Diabetes [...] concerns. 08/27/2017 [facility]ment[phone] ([facility] 08/27/2017 Patient Education: Patient [...] to medications. 06/25/2017 Appointment: [phone] ([facility]) Complex 06/25/2017 Patient Education: Patient Medication Summary Completed 06/25/2017 Appointment: [phone] [facility] (30 min) Complex 06/24/2017 Visit Plan: Hypertension [...] Appointment: [phone] [facility] (30 min) Complex 06/10/2017 Patient Education: Patient [...] glucose control. 05/20/2017 Appointment: Laney Luther WPtel: [facility] [facility] 05/20/2017 Patient Education: Patient Medication Summary Completed 05/20/2017 [facility] [place] Referral Initiated Referral: Kevin Cuevas Referral Initiated [...] spray in the nasal steroid allergy spray. GET RECENT LABS FROM [facility] FASTING LABS NEXT WEEK UNLESS [...]
[2020-02-09] MEDS ORDERED: NS IV 1000 ML 1,000 ML IV SCH ×2 (07:15→09:30)
--- OUTSIDE RECORDS SUMMARY | 2020-02-09 07:15 | XMS REPORT | CCD ---
Author Author Gunnar Luther Organization Karo Guerrero MD, [facility] Address [address] [place] [address] Phone Care Team Providers Care Data Sciences Director Name Role Phone PP Unavailable CCM Unavailable Summary Purpose Interface Exchange Insurance Providers Payer name Policy type / Coverage type Covered constitution party ID Effective Begin Date Effective End Date WPS Medicare Part B Medicare Part B [id number] Unknown Aetna Medicare Part B [id number] Unknown Cigna Medicare Part B 80 [id number] Unknown Family history Sister Diagnosis Age At [...] ed reddy 05/20/[address]: 593467464 Never smoker 05/20/[address]: 411898992 Never drinks alcohol 05/20/2017 Allergies, Adverse Reactions, [...] Date Stop Date Sta tus Fill Instructions Tradjenta 5 mg tablet RxNorm: 7490369 TAKE 1 TABLET BY MOUTH DAILY 10/16/2018 03/14/2019 Ac tive Kenalog 40 mg/mL benitez pension for injection RxNorm: 0719482 1 Milliliter(s) Inj 10/15/2018 10/15/2018 In active Tradjenta 5 mg tablet RxNorm: 1658999 TAKE 1 TABLET BY MOUTH DAILY 09/18/2018 02/14/2019 Ac tive metformin ER 750 mg tablet,extended release 24 hr RxNorm: 053816 2 TABLET(S) PO DAILY 07/13/2018 11/09/2018 Ac tive Tradjenta 5 mg tablet RxNorm: 1779070 TAKE 1 TABLET BY MOUTH DAILY 07/02/2018 09/17/2018 In active One Touch Test strips RxNorm: 1 Miscellaneous BID 06/29/2018 07/28/2018 Inactive Zyrtec 10 mg tablet RxNorm: 6616861 1 Tablet(s) PO daily 04/27/2018 05/26/2018 Inactive doxycycline hyclate 100 mg capsule RxNorm: 4037066 1 Capsule(s) PO BID 04/03/2018 04/12/2018 In active meclizine 25 mg tablet RxNorm: 837840 1 Tablet(s) PO TID as needed Dizziness 04/03/2018 04/07/2018 In active metformin ER 750 mg tablet,extended release 24 hr RxNorm: 307068 2 TABLET(S) PO DAILY 02/03/2018 06/02/2018 Inactive glimepiride 2 mg tablet RxNorm: 690770 TAKE 1 TABLET BY MOUTH TWICE DAILY FOR D IABETES 01/13/2018 04/07/2019 Active glimepiride 2 mg tablet RxNorm: 623945 TAKE 1 TABLET BY MOUTH TWICE DAILY FOR D IABETES 01/11/2018 01/05/2019 Active diltiazem CD 360 mg capsule,extended release 24 hr RxNorm: 560623 1 CAPSULE(S) PO QHS 01/02/2018 12/27/2018 Ac tive atenolol 50 mg-chlor thalidone 25 mg tablet RxNorm: 309333 1 Tablet(s) PO daily 12/18/2017 12/12/2018 Ac tive PLEASE SEND REFILL REQUESTS ELECTRONICAL LY Tradjenta 5 mg tablet RxNorm: 4699499 TAKE 1 TABLET BY MOUTH DAILY 12/15/2017 05/13/2018 In active metformin ER 750 mg tablet,extended release 24 hr RxNorm: 378592 2 TABLET(S) PO DAILY 11/05/2017 02/02/2018 Inactive metformin ER 750 mg tablet,extended release 24 hr RxNorm: 295990 2 TABLET(S) PO DAILY 11/03/2017 02/02/2018 Inactive atorvastatin 20 mg t ablet RxNorm: 707060 TAKE 1 TABLET BY MOUT H EVERY NIGHT AT BEDTIME FOR CHOLESTEROL 08/28/2017 08/22/2018 Inactive Zithromax Z-Maury 250 mg tablet RxNorm: 555683 1 Tablet(s) PO UD 08/15/2017 04/13/2018 Inactive Tamiflu 75 mg capsule RxNorm: 007431 1 Capsule(s) PO BID 08/15/2017 08/14/2017 Inactive Tamiflu 75 mg capsule RxNorm: 064264 1 Capsule(s) PO BID 08/15/2017 08/19/2017 Inactive Tradjenta 5 mg tablet RxNorm: 6630029 TAKE 1 TABLET BY MOUTH DAILY 08/12/2017 12/09/2017 In active metformin ER 750 mg tablet,extended release 24 hr RxNorm: 131591 TAKE 2 TABLET BY MOUT H ONCE A DAY DIRECTED 08/08/2017 No Stop Date Active SAVINGS FOR NON-COVERED MEDICATIONS Claims: BIN: [id number], PCN: [id number], GROUP: [place], Patient ID: [id number] Phone; Questions: YourRx [phone] metformin ER 750 mg tablet,extended release 24 hr RxNorm: 492798 2 Tablet(s) PO daily 08/07/2017 08/06/2017 Inactive metformin ER 750 mg tablet,extended release 24 hr RxNorm: 591005 2 Tablet(s) PO daily 08/07/2017 11/02/2017 Inactive glimepiride 2 mg tablet RxNorm: 885936 TAKE 1 TABLET BY MOUTH TWICE DAILY FOR D IABETES 07/18/2017 01/10/2018 Inactive diltiazem CD 360 mg capsule,extended release 24 hr RxNorm: 877859 1 Capsule(s) PO QHS 07/03/2017 12/29/2017 Inactive One Touch Test strips RxNorm: 1 Miscellaneous daily 05/30/2017 06/28/2017 Inactive One Touch Test strips RxNorm: 1 Miscellaneous daily 05/30/2017 05/29/2017 Inactive iron gluconate-B cmp lx-potassium iodide-minerals oral RxNorm: 28751 oral No Start Date Active Super B Complex 100 tablet RxNorm: 1 Tablet(s) PO daily No Start Date Active Glucosamine Chondroi tin Maximum Strength oral RxNorm: 4845 oral No Start Date Active garlic 1,000 mg capsule RxNorm: 143301 1 Capsule(s) PO BID No Start Date Active vitamin E (dl, aceta te) 400 unit capsule RxNorm: 305314 1 Capsule(s) PO daily No Start Date Active beta carotene 25,000 unit tablet RxNorm: 748649 1 Tablet(s) PO daily No Start Date Active rutin 500 mg tablet RxNorm: 920583 1/2 Tablet(s) PO daily No Start Date Active Calcium 600 + Min[place] ls oral RxNorm: 165613 oral No S tart Date Active Vitamin D3 1,000 uni t tablet RxNorm: 269196 1 Tablet(s) PO daily No Start Date Active Vitamin C 500 mg tablet RxNorm: 211452 1 Tablet(s) PO daily No Start Date Active acidophilus 25 susanne on cell-pectin, citrus 100 mg tablet RxNorm: 711063 1 Tablet(s) PO BID No Start Date Active Zinc and C oral RxNorm: oral No Start Date Active aspirin 81 mg chewab le tablet RxNorm: 592215 1 Tablet(s) PO QPM No Start Date Active Zegerid OTC 20 mg-1. 1 gram capsule RxNorm: 126236 1 Capsule(s) PO daily No Start Date Active magnesium 250 mg tablet RxNorm: 1 Tablet(s) PO daily No Start Date Active flaxseed oil 1,000 m g capsule RxNorm: 163951 1 Capsule(s) PO BID No Start Date Active milk thistle 175 mg tablet RxNorm: 580811 1 Tablet(s) PO daily No Start Date Active metformin ER 750 mg tablet,extended release 24 hr RxNorm: 636909 2 Tablet(s) PO daily No Start Date 08/06/2017 Inactive atorvastatin 20 mg t ablet RxNorm: 976581 1 Tablet(s) PO daily No Start Date 08/27/2017 Inactive Tradjenta 5 mg tablet RxNorm: 6115537 1 Tablet(s) PO daily No Start Date 08/11/2017 Inactive diltiazem ER 300 mg tablet,extended release 24 hr RxNorm: 952056 1 Tablet(s) PO daily No Start Date 05/18/2017 Inactive glimepiride 2 mg tablet RxNorm: 452501 1 Tablet(s) PO BID No Start Date 07/17/2017 Inactive Zithromax Z-Maury 250 mg tablet RxNorm: 242822 1 Tablet(s) PO UD No Start Date 08/14/2017 Inactive atenolol 50 mg-chlor thalidone 25 mg tablet RxNorm: 688598 1 Tablet(s) PO daily No Start Date 12/17/2017 Inactive diltiazem CD 360 mg capsule,extended release 24 hr RxNorm: 086404 1 Capsule(s) PO QHS No Start Date 07/02/2017 Inactive Medication Administered Medication Codes Instruc tions Start Date Status Kenalog 40 mg/mL suspension for injection RxNorm: 6969131 1Milliliter 10/15/2018 N o longer Active Immunizations [...] Observation Code Item Item Code Result Date Cbc With Differential Ord2 WBC 7.51 K/ul [...] 31.4 pg 08/03/2018 Cbc With Differential Ord2 [place]% 11.9 % 08/03/2018 Cbc With Differential Ord2 [...] 1.62 K/ul 08/03/2018 Cbc With Differential Ord2 [place] ABS# 0.9 K/ul 08/03/2018 Cbc With Differential Ord2 Eos ABS# 0.1 K/ul 08/03/2018 Cbc With Differential Ord2 Baso ABS# 0.0 K/ul 08/03/2018 Comp Metabolic Bzj862 NA 135 mEq/L 08/03/2018 Comp Metabolic Niw090 K 3.5 mEq/L 08/03/2018 Comp Metabolic Idi836 CL 95 mEq/L 08/03/2018 Comp Metabolic Izt467 CO2 30.0 mEq/L 08/03/2018 Comp Metabolic Mbb704 AN ION GAP 14 08/03/2018 Comp Metabolic Opw310 GL UCOSE 152 mg/dL 08/03/2018 Comp Metabolic Bau798 Cr eat 1.2 mg/dL 08/03/2018 Comp Metabolic Yqf976 eG FR 61 ml/min/1.73m2 08/03 Comp Metabolic Llu521 BUN 23 mg/dL 08/03/2018 Comp Metabolic Nxv953 B/ C Ratio 19.0 Ratio 08/03/2018 Comp Metabolic Wvl173 CA LCIUM 9.6 mg/dL 08/03/2018 Comp Metabolic Tmb937 AL K PHOS 51 U/L 08/03/2018 Comp Metabolic Tis987 T(SGOT) 20 U/L 08/03/2018 Comp Metabolic Cbd188 AL T(SGPT) 24 U/L 08/03/2018 Comp Metabolic Tkn081 BI LI T 0.5 mg/dL 08/03/2018 Comp Metabolic Kjm987 AL BUMIN 4.3 g/dL 08/03/2018 Comp Metabolic Qgm802 TP RO 6.8 g/dL 08/03/2018 Comp Metabolic Dnk872 GL OB 2.6 g/dL 08/03/2018 Comp Metabolic Bfo464 A/ G Ratio 1.7 Ratio 08/03/2018 Comp Metabolic Obn452 Os mo 277 mOsmo 08/03/2018 %Hba1C Xlj816 % HbA1c 76242-6 7.3 % 08/03/2018 %Hba1C Msp675 Gluc Ave 163 mg/dL 08/03/2018 Cbc With [...] 31.2 pg 05/14/2018 Cbc With Differential Ord2 [place]% 12.2 % 05/14/2018 Cbc With Differential Ord2 [...] 1.81 K/ul 05/14/2018 Cbc With Differential Ord2 [place] ABS# 1.0 K/ul 05/14/2018 Cbc With Differential Ord2 Eos ABS# 0.1 K/ul 05/14/2018 Cbc With Differential Ord2 Baso ABS# 0.0 K/ul 05/14/2018 Ehrlichia Chaffeensis Antibody Igm 749094 EHRLICHIA CHAFFEENSIS IGM < 1:16 04/09/2018 Ehrlichia [place]affeensis Antibody Igg 156301 EHRLICHIA CHAFFEENSIS IGG 1:64 04/09/2018 [place] Spotted Fever Igg/Igm 05632 3 LOTUS [place] SPOTTED FEVER IGM EIA . 04/09/2018 [place] Spotted Fever Igg/Igm 96052 3 RMSF, IGM 0.36 index 04/09/2018 [place] Spotted Fever Igg/Igm 71493 3 LOTUS [place] SPOTTED FEVER IGG EIA FLEX . 04/09/2018 [place] Spotted Fever Igg/Igm 36900 3 RMSF, IGG SCREEN-FLEX Negative 04/09/2018 Lymes Disease Total Antibodies With Western Blot Refle x 201734 B. BURGDORFERI, IGG/IGM 0.31 04/07/2018 [place]ym[facility] Disease Total Antibodies With Western Blot Refle x [id number] INTERPRETATION 04/07/2018 %Hba1C Dxc963 % HbA1c 03187-2 7.2 % 03/31/2018 %Hba1C Qjg334 Gluc Ave 160 mg/dL 03/31/2018 Lipid Ord30 [...] 31.3 pg 12/22/2017 Cbc With Differential Ord2 [place]% 11.5 % 12/22/2017 Cbc With Differential Ord2 [...] 2.16 K/ul 12/22/2017 Cbc With Differential Ord2 [place] ABS# 1.1 K/ul 12/22/2017 Cbc With Differential Ord2 Eos ABS# 0.1 K/ul 12/22/2017 Cbc With Differential Ord2 Baso ABS# 0.0 K/ul 12/22/2017 Comp Metabolic Rkt953 NA 141 mEq/L 12/22/2017 Comp Metabolic Ify532 K 3.9 mEq/L 12/22/2017 Comp Metabolic Rvb555 CL 99 mEq/L 12/22/2017 Comp Metabolic Ubk559 CO2 32.0 mEq/L 12/22/2017 Comp Metabolic Zht700 AN ION GAP 14 12/22/2017 Comp Metabolic Itx481 GL UCOSE 152 mg/dL 12/22/2017 Comp Metabolic Gkk128 Cr eat 1.0 mg/dL 12/22/2017 Comp Metabolic Tzm743 eG FR 78 ml/min/1.73m2 12/22 Comp Metabolic Tos217 BUN 27 mg/dL 12/22/2017 Comp Metabolic Pcp281 B/ C Ratio 27.8 Ratio 12/22/2017 Comp Metabolic Ssm289 CA LCIUM 9.7 mg/dL 12/22/2017 Comp Metabolic Vfa098 AL K PHOS 56 U/L 12/22/2017 Comp Metabolic Tay708 T(SGOT) 18 U/L 12/22/2017 Comp Metabolic Cxw507 AL T(SGPT) 20 U/L 12/22/2017 Comp Metabolic Ubv797 BI LI T 0.4 mg/dL 12/22/2017 Comp Metabolic Rkc955 AL BUMIN 4.2 g/dL 12/22/2017 Comp Metabolic Hna878 TP RO 6.4 g/dL 12/22/2017 Comp Metabolic Kvb422 GL OB 2.2 g/dL 12/22/2017 Comp Metabolic Ytp642 A/ G Ratio 1.9 Ratio 12/22/2017 Comp Metabolic Dvj499 Os mo 289 mOsmo 12/22/2017 %Hba1C Bwu312 % HbA1c 83197-4 7.1 % 12/22/2017 %Hba1C Wwi385 Gluc Ave 157 mg/dL 12/22/2017 Cbc With [...] 31.5 pg 09/22/2017 Cbc With Differential Ord2 [place]% 8.4 % 09/22/2017 Cbc With Differential Ord2 [...] 1.83 K/ul 09/22/2017 Cbc With Differential Ord2 [place] ABS# 0.9 K/ul 09/22/2017 Cbc With Differential Ord2 Eos ABS# 0.0 K/ul 09/22/2017 Cbc With Differential Ord2 Baso ABS# 0.0 K/ul 09/22/2017 %Hba1C Bfg324 % HbA1c 33925-8 6.9 % 09/22/2017 %Hba1C Rzb417 Gluc Ave 151 mg/dL 09/22/2017 Tsh Ord6 [...] 31.6 pg 06/17/2017 Cbc With Differential Ord2 [place]% 11.1 % 06/17/2017 Cbc With Differential Ord2 [...] 2.35 K/ul 06/17/2017 Cbc With Differential Ord2 [place] ABS# 1.2 K/ul 06/17/2017 Cbc With Differential Ord2 Eos ABS# 0.1 K/ul 06/17/2017 Cbc With Differential Ord2 Baso ABS# 0.0 K/ul 06/17/2017 %Hba1C Rrj011 % HbA1c 84130-3 7.3 % 06/17/2017 %Hba1C Ult868 Gluc Ave 163 mg/dL 06/17/2017 Comp Metabolic Sfb950 NA 137 mEq/L 06/17/2017 Comp Metabolic Lia035 K 3.8 mEq/L 06/17/2017 Comp Metabolic Oga931 CL 98 mEq/L 06/17/2017 Comp Metabolic Mts132 CO2 30.0 mEq/L 06/17/2017 Comp Metabolic Bfx778 AN ION GAP 13 06/17/2017 Comp Metabolic Wvx159 GL UCOSE 157 mg/dL 06/17/2017 Comp Metabolic Qki889 Cr eat 1.0 mg/dL 06/17/2017 Comp Metabolic Zan132 eG FR 76 ml/min/1.73m2 06/17 Comp Metabolic Cbi081 BUN 18 mg/dL 06/17/2017 Comp Metabolic Pum042 B/ C Ratio 18.0 Ratio 06/17/2017 Comp Metabolic Gqq670 CA LCIUM 9.8 mg/dL 06/17/2017 Comp Metabolic Zcn048 AL K PHOS 57 U/L 06/17/2017 Comp Metabolic Jxf034 T(SGOT) 19 U/L 06/17/2017 Comp Metabolic Yka422 AL T(SGPT) 23 U/L 06/17/2017 Comp Metabolic Dea625 BI LI T 0.6 mg/dL 06/17/2017 Comp Metabolic Owt761 AL BUMIN 4.4 g/dL 06/17/2017 Comp Metabolic Ath283 TP RO 6.8 g/dL 06/17/2017 Comp Metabolic Jvc756 GL OB 2.4 g/dL 06/17/2017 Comp Metabolic Gsf881 A/ G Ratio 1.9 Ratio 06/17/2017 Comp Metabolic Bmz079 Os mo 279 mOsmo 06/17/2017 Review of [...] skin Location: scalp 10/08/2017 AK - right hinduism, mid fo rehead/scalp, left posterior neck - [...] skin Location: scalp 08/27/2017 [place] - right hinduism, mid fo rehead/scalp - cryotherapy to area, [...] CPT-4: J3301 10/15/2018 THER/PROPH/DIAG INJ SC/IM CPT-4: 68641 10/15/2018 ADMIN INFLUENZA VIRU S VAC CPT-4: G0008 06/24/2018 FLU VACC PRSV FREE I NC ANTIG CPT-4: 11273 06/24/2018 GLUC MONITOR CONT PH YS I&R CPT-4: 85675 01/27/2018 PPPS, SUBSEQ VISIT CPT- 4: G0439 01/21/2018 GLUCOSE MONITORING CONT CPT-4: 15766 01/06/2018 ADMIN INFLUENZA VIRU S VAC CPT-4: G0008 06/09/2017 FLU VACC PRSV FREE I NC ANTIG CPT-4: 18070 06/09/2017 Vital Signs Date Vital 10/15/2018 Blood Pressure 1: 140/70 Code: 8480-6 BMI: 33.5 Code: 23821-0 Heart Rate 1: 72 bpm Height: 5'8" SpO2: 98% Weight: 220 lbs 08/05/2018 Blood Pressure 1: 132/56 Code: 8480-6 BMI: 34.5 Code: 69710-1 Heart Rate 1: 65 bpm Height: 5'8" SpO2: 95% Weight: 227 lbs 06/22/2018 Blood Pressure 1: 144/86 Code: 8480-6 BMI: 36.0 Code: 27332-1 Heart Rate 1: 74 bpm Height: 5'8" SpO2: 98% Weight: 237 lbs 05/14/2018 Blood Pressure 1: 132/72 Code: 8480-6 Height: Weight: 04/27/2018 Blood Pressure 1: 148/78 Code: 8480-6 BMI: 35.6 Code: 12125-8 Heart Rate 1: 77 bpm Height: 5'8" SpO2: 97% Weight: 234 lbs 04/03/2018 Blood Pressure 1: 156/80 Code: 8480-6 BMI: 35.4 Code: 75665-4 Heart Rate 1: 70 bpm Height: 5'8" SpO2: 97% Weight: 233 lbs 01/27/2018 BMI: 35.6 Code: 81345-6 Heart Rate 1: 86 bpm Height: 5'8" SpO2: 98% Weight: 234 lbs 01/21/2018 Heigh t: Weight: 01/06/2018 Heigh t: Weight: 12/31/2017 Blood Pressure 1: 140/86 Code: 8480-6 BMI: 34.2 Code: 14666-4 Heart Rate 1: 80 bpm Height: 5'8" SpO2: 98% Weight: 225 lbs 10/08/2017 Blood Pressure 1: 152/74 Code: 8480-6 BMI: 34.2 Code: 12081-5 Heart Rate 1: 67 bpm Height: 5'8" SpO2: 98% Weight: 225 lbs 08/27/2017 Blood Pressure 1: 144/82 Code: 8480-6 BMI: 34.2 Code: 35695-1 Heart Rate 1: 70 bpm Height: 5'8" SpO2: 98% Weight: 225 lbs 06/10/2017 Blood Pressure 1: 150/84 Code: 8480-6 BMI: 35.0 Code: 33725-3 Heart Rate 1: 67 bpm Height: 5'8" SpO2: 98% Weight: 230 lbs 05/20/2017 Blood Pressure 1: 146/76 Code: 8480-6 BMI: 35.3 Code: 75206-7 Heart Rate 1: 70 bpm Height: 5'8" [...] Encounters Encounter Performer Loca tion Codes Date 67237 EST. PATIENT, LEVEL IV Diagnosis: Other acute sinusitis[ICD10: J01.80] Diagnosis: Other allergic rhinitis[ICD10: J30.89] [facility] CPT-4: 81065 10/15/2018 09627 EST. PATIENT, LEVEL III Diagnosis: Type 2 diabetes mellitus with hyperglycemia[ICD10: E11.65] [facility] CPT-4: 41199 08/05/2018 27131 EST. PATIENT, LEVEL III Diagnosis: Type 2 diabetes mellitus with hyperglycemia[ICD10: E11.65] Laney Guerrero MD, [facility] CPT-4: 14839 06/22/2018 56615 EST. PATIENT, LEVEL IV Diagnosis: Diplopia[ICD10: H53.2] Diagnosis: Other specified anemias[ICD10: D64.89] Laney Guerrero MD, [facility] CPT-4: 72832 05/14/2018 02714 EST. PATIENT, LEVEL III Diagnosis: Benign paroxysmal vertigo, bilateral[ICD10: H81.13] Diagnosis: Other allergic rhinitis[ICD10: J30.89] Laney Guerrero MD, [facility] CPT-4: 28597 04/27/2018 25487 EST. PATIENT, LEVEL III Diagnosis: Type 2 diabetes mellitus with hyperglycemia[ICD10: E11.65] Diagnosis: Other fatigue[ICD10: R53.83] Diagnosis: Other malaise[ICD10: R53.81] Diagnosis: Bitten or stung by nonvenomous insect and other nonvenomous arthropods, initial encounter[ICD10: W57.XXXA] Diagnosis: Cellulitis of right upper limb[ICD10: L03.113] Diagnosis: Mixed hyperlipidemia[ICD10: E78.2] Laney Guerrero MD, [facility] CPT-4: 84186 04/03/2018 ([id number]) 99724 EST. P ATIENT, LEVEL III Diagnosis: Type 2 diabetes mellitus with hyperglycemia[ICD10: E11.65] Laney Guerrero MD, [facility] CPT-4: 75930 01/27/2018 (20304) Miscellaneou s no charge Diagnosis: Type 2 diabetes mellitus with hyperglycemia[ICD10: E11.65] Laney Guerrero MD, [facility] CPT-4: 10380 01/13/2018 43709 EST. PATIENT, LEVEL III Diagnosis: Type 2 diabetes mellitus with hyperglycemia[ICD10: E11.65] Diagnosis: Essential (primary) hypertension[ICD10: I10] Diagnosis: Mixed hyperlipidemia[ICD10: E78.2] Laney Guerrero MD, [facility] CPT-4: 01250 12/31/2017 99457 EST. PATIENT, LEVEL III Diagnosis: Type 2 diabetes mellitus with hyperglycemia[ICD10: E11.65] Diagnosis: Essential (primary) hypertension[ICD10: I10] Diagnosis: Mixed hyperlipidemia[ICD10: E78.2] Diagnosis: Actinic keratosis[ICD10: L57.0] Laney Guerrero MD, [facility] CPT-4: 54397 10/08/2017 34755 EST. PATIENT, LEVEL III Diagnosis: Type 2 diabetes mellitus with hyperglycemia[ICD10: E11.65] Diagnosis: Essential (primary) hypertension[ICD10: I10] Diagnosis: Mixed hyperlipidemia[ICD10: E78.2] Diagnosis: Actinic keratosis[ICD10: L57.0] [facility] CPT-4: 17084 08/27/2017 98953 EST. PATIENT, LEVEL III Diagnosis: Type 2 diabetes mellitus with hyperglycemia[ICD10: E11.65] Diagnosis: Essential (primary) hypertension[ICD10: I10] Diagnosis: Mixed hyperlipidemia[ICD10: E78.2] Laney Guerrero MD, [facility] CPT-4: 50904 06/25/2017 ([id number]) 84941 EST. 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] [facility] CPT-4: 16828 06/10/2017 OFFICE VISIT, NEW - LEVEL 4 Diagnosis: Essential (primary) hypertension[ICD10: I10] Diagnosis: Type 2 diabetes mellitus with hyperglycemia[ICD10: E11.65] [facility] CPT-4: 25890 05/20/2017 Plan of Care Planned Activity Notes C odes Status Date Patient Education: Patient Medication Summary Completed 10/21/2018 Care Plan: Comp Metabolic Pending 10/21/2018 Care Plan: Cbc With Differential Pending 10/21/2018 Care Plan: Tsh Pending 10/21/2018 Care Plan: Lipid Pending 10/21/2018 Care Plan: %Hba1C LEVAR C : 04282-2 Pending 10/21/2018 Visit Plan: Sinusitis - Pt has [...] spray. 10/15/2018 Appointment: Laney Luther WPtel: [phone] [facility] (30 min) Complex 10/15/2018 Patient [...] control. 08/05/2018 Appointment: Laney Luther WPtel: [phone] [facility] (15 min) Moderate 08/05/2018 Patient Education: Patient Medication Summary Completed 08/05/2018 Appointment: Laney Luther WPtel: [phone] [facility] (15 min) Moderate 07/17/2018 Referral: [...] glucose control. 06/22/2018 Appointment: Laney Luther WPtel: [address] [place], [place] [address] (15 min) Moderate 06/22/2018 Patient Education: Patient Medication Summary Completed 06/22/2018 Patient Education: Diabetes Completed 06/22/2018 Care Plan: Referral Order SNOMED-CT : [id number] Pending 06/22/2018 Referral: Christian Johnson [facility] Referral Initiated 06/02/2018 Appointment: Nurse Visit [...] or concerns. 05/14/2018 Appointment: Laney Luther WPtel: [address] [place], [place] [id number] (15 min) Moderate 05/14/2018 Patient Education: Patient [...] 04/27/2018 Care Plan: Referral Order SNOMED-CT : [id number] Pending 04/27/2018 Visit Plan: Diabetes Mellitus - [...] months for follow up on the patient's bellmaker gumaro medical problem and to assure normal [...] [facility] ([facility]) Complex 01/27/2018 Patient Education: Patient [...] Completed 01/21/2018 Appointment: [phone] (15 min) Moderate 01/13/2018 Patient Education: Patient [...] glucose control. 01/06/2018 Appointment: Laney Luther WPtel: [address] [place], [place] [address] (15 min) Moderate 01/06/2018 Patient Education: Patient [...] medications. 12/31/2017 Appointment: [phone] ([facility] min) Complex 12/31/2017 [...] acute concerns. 10/08/2017 Appointment: [phone] ([facility] min) Complex 10/08/2017 Patient Education: Patient Medication Summary Completed 10/08/2017 Appointment: [facility]: [phone] [...] to medications. 06/25/2017 Appointment: [phone] ([facility] min) Complex 06/25/2017 Patient Education: Patient Medication Summary Completed 06/25/2017 Appointment: [phone] [place] (30 min) Complex 06/24/2017 Visit Plan: [...] medications. 06/10/2017 Appointment: Debra Ramirez WPtel: [phone] [facility] (30 min) Complex 06/10/2017 Patient [...] glucose control. 05/20/2017 Appointment: Laney Luther WPtel: [facility]5 [facility] New Patient 05/20/2017 Patient Education: Patient Medication Summary Completed 05/20/2017 Referral: Christian Johnson [facility]66[facility] Referral Initiated Referral: Kevin Cuevas Referral Initiated [...] steroid allergy spray. GET RECENT LABS FROM [facility] FASTING LABS NEXT WEEK UNLESS [...] liver response to medications. . Hypertension - patient has been counseled [...]
--- OUTSIDE RECORDS SUMMARY | 2020-02-09 07:16 | XMS REPORT | CCD ---
Author Author Gunnar Luther Organization Karo Guerrero MD, [facility] Address [address] [place] [address] Phone Care Team Providers Care Vascular Surgeon Name Role Phone PP Unavailable CCM Unavailable Summary Purpose Interface Exchange Insurance Providers Payer name Policy type / Coverage type Covered republican ID Effective Begin Date Effective End Date WPS Medicare Part B Medicare Part B [id number] Unknown Aetna Medicare Part B AH [id number] Unknown Cigna Medicare Part B 80 [id number] Unknown Family history Sister Diagnosis Age At [...] ed reddy 05/20/[address]: 970497231 Never smoker 05/20/[address]: 112802357 Never drinks alcohol 05/20/2017 Allergies, Adverse Reactions, Alerts Substance Reaction Codes Entered Date Inactivated Date Status Penicillin Unknown 05/20/2017 No In active Date Active PENICILLINS Unknown 05/20/2017 No In active Date Active Past Medical History Illness Codes Condition Status Onset Date Resolved Date Other acute sinusitis ICD-9: 461.8 ICD-10: J01.80 Active 10/15/2018 Unknown Other allergic rhinitis ICD-9: 477.8 ICD-10: J30.89 Active 04/27/2018 Unknown Type 2 diabetes stevo itus with hyperglycemia ICD-9: 250.02 ICD-10: E11.65 Active 05/20/2017 Unknown Encounter for immuni zation ICD-9: V04.81 [...] ICD-9: 682.3 ICD-10: L03.113 Active 04/03/2018 Unknown Mixed hyperlipidemia ICD-9: 272.2 ICD-10: E78.2 Active 06/10/2017 Unknown Other fatigue ICD-9: 780.79 ICD-10: R53.83 Active 04/03/2018 Unknown Other malaise ICD-9: 780.79 ICD-10: R53.81 Active 04/03/2018 Unknown Encounter for genera l adult medical examination with abnormal findings ICD-9: V70.0 ICD-10: Z00.01 Active 01/21/2018 Unknown Actinic keratosis ICD-9: 702.0 ICD-10: L57.0 Active 08/27/2017 Unknown Essential (primary) hypertension ICD-9: 401.1 ICD-10: I10 Active 05/20/2017 Unknown Problems Condition Codes Effectiv e Dates Condition Status Other acute sinusitis ICD-9: 461.8 ICD-10: J01.80 10/15/2018 Active Other allergic rhinitis ICD-9: 477.8 ICD-10: J30.89 04/27/2018 Active Type 2 diabetes stevo itus with hyperglycemia ICD-9: 250.02 ICD-10: E11.65 05/20/2017 Active Encounter for immuni zation ICD-9: V04.81 [...] limb ICD-9: 682.3 ICD-10: L03.113 04/03/2018 Active Mixed hyperlipidemia ICD-9: 272.2 ICD-10: E78.2 06/10/2017 Active Other fatigue ICD-9: 780.79 ICD-10: R53.83 04/03/2018 Active Other malaise ICD-9: 780.79 ICD-10: R53.81 04/03/2018 Active Encounter for genera l adult medical examination with abnormal findings ICD-9: V70.0 ICD-10: Z00.01 01/21/2018 Active Actinic keratosis ICD-9: 702.0 ICD-10: L57.0 08/27/2017 Active Essential (primary) hypertension ICD-9: 401.1 ICD-10: I10 05/20/2017 Active Medications Medication Codes Instruc tions Start Date Stop Date Sta tus Fill Instructions Tradjenta 5 mg tablet RxNorm: 3993260 TAKE 1 TABLET BY MOUTH DAILY 10/16/2018 03/14/2019 Ac tive Kenalog 40 mg/mL benitez pension for injection RxNorm: 4778388 1 Milliliter(s) Inj 10/15/2018 10/15/2018 In active Tradjenta 5 mg tablet RxNorm: 0107510 TAKE 1 TABLET BY MOUTH DAILY 09/18/2018 02/14/2019 Ac tive metformin ER 750 mg tablet,extended release 24 hr RxNorm: 985685 2 TABLET(S) PO DAILY 07/13/2018 11/09/2018 Ac tive Tradjenta 5 mg tablet RxNorm: 1487133 TAKE 1 TABLET BY MOUTH DAILY 07/02/2018 09/17/2018 In active One Touch Test strips RxNorm: 1 Miscellaneous BID 06/29/2018 07/28/2018 Inactive Zyrtec 10 mg tablet RxNorm: 4103682 1 Tablet(s) PO daily 04/27/2018 05/26/2018 Inactive doxycycline hyclate 100 mg capsule RxNorm: 9366862 1 Capsule(s) PO BID 04/03/2018 04/12/2018 In active meclizine 25 mg tablet RxNorm: 392499 1 Tablet(s) PO TID as needed Dizziness 04/03/2018 04/07/2018 In active metformin ER 750 mg tablet,extended release 24 hr RxNorm: 305225 2 TABLET(S) PO DAILY 02/03/2018 06/02/2018 Inactive glimepiride 2 mg tablet RxNorm: 961665 TAKE 1 TABLET BY MOUTH TWICE DAILY FOR D IABETES 01/13/2018 04/07/2019 Active glimepiride 2 mg tablet RxNorm: 838302 TAKE 1 TABLET BY MOUTH TWICE DAILY FOR D IABETES 01/11/2018 01/05/2019 Active diltiazem CD 360 mg capsule,extended release 24 hr RxNorm: 701730 1 CAPSULE(S) PO QHS 01/02/2018 12/27/2018 Ac tive atenolol 50 mg-chlor thalidone 25 mg tablet RxNorm: 324138 1 Tablet(s) PO daily 12/18/2017 12/12/2018 Ac tive PLEASE SEND REFILL REQUESTS ELECTRONICAL LY Tradjenta 5 mg tablet RxNorm: 4939793 TAKE 1 TABLET BY MOUTH DAILY 12/15/2017 05/13/2018 In active metformin ER 750 mg tablet,extended release 24 hr RxNorm: 845422 2 TABLET(S) PO DAILY 11/05/2017 02/02/2018 Inactive metformin ER 750 mg tablet,extended release 24 hr RxNorm: 924459 2 TABLET(S) PO DAILY 11/03/2017 02/02/2018 Inactive atorvastatin 20 mg t ablet RxNorm: 003373 TAKE 1 TABLET BY MOUT H EVERY NIGHT AT BEDTIME FOR CHOLESTEROL 08/28/2017 08/22/2018 Inactive Zithromax Z-Maury 250 mg tablet RxNorm: 614891 1 Tablet(s) PO UD 08/15/2017 04/13/2018 Inactive Tamiflu 75 mg capsule RxNorm: 525941 1 Capsule(s) PO BID 08/15/2017 08/14/2017 Inactive Tamiflu 75 mg capsule RxNorm: 797076 1 Capsule(s) PO BID 08/15/2017 08/19/2017 Inactive Tradjenta 5 mg tablet RxNorm: 5578138 TAKE 1 TABLET BY MOUTH DAILY 08/12/2017 12/09/2017 In active metformin ER 750 mg tablet,extended release 24 hr RxNorm: 298402 TAKE 2 TABLET BY MOUT H ONCE A DAY DIRECTED 08/08/2017 No Stop Date Active SAVINGS FOR NON-COVERED MEDICATIONS Claims: BIN: [id number], PCN: [id number], GROUP: [place], Patient ID: [id number] Phone; Questions: [facility] [phone] metformin ER 750 mg tablet,extended release 24 hr RxNorm: 495370 2 Tablet(s) PO daily 08/07/2017 08/06/2017 Inactive metformin ER 750 mg tablet,extended release 24 hr RxNorm: 610694 2 Tablet(s) PO daily 08/07/2017 11/02/2017 Inactive glimepiride 2 mg tablet RxNorm: 933680 TAKE 1 TABLET BY MOUTH TWICE DAILY FOR D IABETES 07/18/2017 01/10/2018 Inactive diltiazem CD 360 mg capsule,extended release 24 hr RxNorm: 196781 1 Capsule(s) PO QHS 07/03/2017 12/29/2017 Inactive One Touch Test strips RxNorm: 1 Miscellaneous daily 05/30/2017 06/28/2017 Inactive One Touch Test strips RxNorm: 1 Miscellaneous daily 05/30/2017 05/29/2017 Inactive iron gluconate-B cmp lx-potassium iodide-minerals oral RxNorm: 13145 oral No Start Date Active Super B Complex 100 tablet RxNorm: 1 Tablet(s) PO daily No Start Date Active Glucosamine Chondroi tin Maximum Strength oral RxNorm: 4845 oral No Start Date Active garlic 1,000 mg capsule RxNorm: 428686 1 Capsule(s) PO BID No Start Date Active vitamin E (dl, aceta te) 400 unit capsule RxNorm: 421927 1 Capsule(s) PO daily No Start Date Active beta carotene 25,000 unit tablet RxNorm: 609409 1 Tablet(s) PO daily No Start Date Active rutin 500 mg tablet RxNorm: 892217 1/2 Tablet(s) PO daily No Start Date Active Calcium 600 + [place] ls oral RxNorm: 801851 oral No S tart Date Active Vitamin D3 1,000 uni t tablet RxNorm: 668869 1 Tablet(s) PO daily No Start Date Active Vitamin C 500 mg tablet RxNorm: 031703 1 Tablet(s) PO daily No Start Date Active acidophilus 25 susanne on cell-pectin, citrus 100 mg tablet RxNorm: 637614 1 Tablet(s) PO BID No Start Date Active Zinc and C oral RxNorm: oral No Start Date Active aspirin 81 mg chewab le tablet RxNorm: 816950 1 Tablet(s) PO QPM No Start Date Active Zegerid OTC 20 mg-1. 1 gram capsule RxNorm: 537106 1 Capsule(s) PO daily No Start Date Active magnesium 250 mg tablet RxNorm: 1 Tablet(s) PO daily No Start Date Active flaxseed oil 1,000 m g capsule RxNorm: 238114 1 Capsule(s) PO BID No Start Date Active milk thistle 175 mg tablet RxNorm: 484876 1 Tablet(s) PO daily No Start Date Active metformin ER 750 mg tablet,extended release 24 hr RxNorm: 348621 2 Tablet(s) PO daily No Start Date 08/06/2017 Inactive atorvastatin 20 mg t ablet RxNorm: 558077 1 Tablet(s) PO daily No Start Date 08/27/2017 Inactive Tradjenta 5 mg tablet RxNorm: 0807226 1 Tablet(s) PO daily No Start Date 08/11/2017 Inactive diltiazem ER 300 mg tablet,extended release 24 hr RxNorm: 594506 1 Tablet(s) PO daily No Start Date 05/18/2017 Inactive glimepiride 2 mg tablet RxNorm: 530136 1 Tablet(s) PO BID No Start Date 07/17/2017 Inactive Zithromax Z-Maury 250 mg tablet RxNorm: 373214 1 Tablet(s) PO UD No Start Date 08/14/2017 Inactive atenolol 50 mg-chlor thalidone 25 mg tablet RxNorm: 062082 1 Tablet(s) PO daily No Start Date 12/17/2017 Inactive diltiazem CD 360 mg capsule,extended release 24 hr RxNorm: 670769 1 Capsule(s) PO QHS No Start Date 07/02/2017 Inactive Medication Administered Medication Codes Instruc tions Start Date Status Kenalog 40 mg/mL suspension for injection RxNorm: 2853182 1Milliliter 10/15/2018 N o longer Active Immunizations Vaccine Codes Date Status Influenza CVX: 141 06/24 completed Influenza CVX: 141 06/09 completed Assessments Condition Codes Effectiv e Dates Other allergic rhinitis ICD-10: J30. 89 ICD-9: 477.8 10/15/2018 Other acute sinusitis ICD-10: J01.80 ICD-9: 461.8 10/15/2018 Type 2 diabetes mellitus with hyperglycemia ICD-10: E11.65 ICD-9: 250.02 08/05/2018 Encounter for immunization ICD-10: Z 23 ICD-9: V04.81 06/24/2018 Other specified anemias ICD-10: D64. 89 ICD-9: 285.8 05/14/2018 Diplopia ICD-10: H53.2 ICD-9: 368.2 05/14/2018 Benign paroxysmal vertigo, bilateral ICD-10: H81.13 ICD-9: 386.11 04/27/2018 Other fatigue ICD-10: R53.83 ICD-9: 780.79 04/03/2018 Mixed hyperlipidemia ICD-10: E78.2 ICD-9: 272.2 04/03/2018 Other malaise ICD-10: R53.81 ICD-9: 780.79 04/03/2018 Bitten or stung by nonvenomous insect an d other nonvenomous arthropods, initial encounter ICD-10: W57.XXXA ICD-9: 919.4 04/03/2018 Cellulitis of right upper limb ICD-1 0: L03.113 ICD-9: 682.3 04/03/2018 Encounter for general adult medical exam ination with abnormal findings ICD-10: Z00.01 ICD-9: V70.0 01/21/2018 Essential (primary) hypertension ICD -10: I10 ICD-9: 401.1 12/31/2017 Actinic keratosis ICD-10: L57.0 ICD-9: 702.0 10/08/2017 [...] Item Item Code Result Date Comp Metabolic Frf322 NA 135 mEq/L 08/03/2018 Comp Metabolic Geu894 K 3.5 mEq/L 08/03/2018 Comp Metabolic Prz366 CL 95 mEq/L 08/03/2018 Comp Metabolic Szt042 CO2 30.0 mEq/L 08/03/2018 Comp Metabolic Jui939 AN ION GAP 14 08/03/2018 Comp Metabolic Idx991 GL UCOSE 152 mg/dL 08/03/2018 Comp Metabolic Zdm146 Cr eat 1.2 mg/dL 08/03/2018 Comp Metabolic Wyq632 eG FR 61 ml/min/1.73m2 08/03 Comp Metabolic Cls137 BUN 23 mg/dL 08/03/2018 Comp Metabolic Glw776 B/ C Ratio 19.0 Ratio 08/03/2018 Comp Metabolic Pfu636 CA LCIUM 9.6 mg/dL 08/03/2018 Comp Metabolic Kgl729 AL K PHOS 51 U/L 08/03/2018 Comp Metabolic Enx480 T(SGOT) 20 U/L 08/03/2018 Comp Metabolic Tin844 AL T(SGPT) 24 U/L 08/03/2018 Comp Metabolic Jvv582 BI LI T 0.5 mg/dL 08/03/2018 Comp Metabolic Gae776 AL BUMIN 4.3 g/dL 08/03/2018 Comp Metabolic Noz574 TP RO 6.8 g/dL 08/03/2018 Comp Metabolic Tis834 GL OB 2.6 g/dL 08/03/2018 Comp Metabolic Plb643 A/ G Ratio 1.7 Ratio 08/03/2018 Comp Metabolic Gek307 Os mo 277 mOsmo 08/03/2018 Cbc With Differential Ord2 WBC 7.51 K/ul [...] 31.4 pg 08/03/2018 Cbc With Differential Ord2 [place]% 11.9 % 08/03/2018 Cbc With Differential Ord2 [...] 1.62 K/ul 08/03/2018 Cbc With Differential Ord2 [place] ABS# 0.9 K/ul 08/03/2018 Cbc With Differential Ord2 Eos ABS# 0.1 K/ul 08/03/2018 Cbc With Differential Ord2 Baso ABS# 0.0 K/ul 08/03/2018 %Hba1C Ccl851 % HbA1c 70338-7 7.3 % 08/03/2018 %Hba1C Smu176 Gluc Ave 163 mg/dL 08/03/2018 Cbc With [...] 31.2 pg 05/14/2018 Cbc With Differential Ord2 [place]% 12.2 % 05/14/2018 Cbc With Differential Ord2 [...] 1.81 K/ul 05/14/2018 Cbc With Differential Ord2 [place] ABS# 1.0 K/ul 05/14/2018 Cbc With Differential Ord2 Eos ABS# 0.1 K/ul 05/14/2018 Cbc With Differential Ord2 Baso ABS# 0.0 K/ul 05/14/2018 Hymera Spotted Fever Igg/Igm 87081 3 LOTUS MT SPOTTED FEVER IGM EIA . 04/09/2018 [place] Spotted Fever Igg/Igm 56729 3 RMSF, IGM 0.36 index 04/09/2018 [place] Spotted Fever Igg/Igm 56624 3 LOTUS MT SPOTTED FEVER IGG EIA FLEX . 04/09/2018 [place] Spotted Fever Igg/Igm 83153 3 RMSF, IGG SCREEN-FLEX Negative 04/09/2018 Ehrlichia Chaffeensis Antibody Igg 547615 EHRLICHIA CHAFFEENSIS IGG 1:64 04/09/2018 Ehrlichia Chaffeensis Antibody Igm 911184 EHRLICHIA CHAFFEENSIS IGM < 1:16 04/09/2018 Lymes Disease Total Antibodies With Western Blot Refle x 930598 B. BURGDORFERI, IGG/IGM 0.31 04/07/2018 Lymes Disease Total Antibodies With Western Blot Refle x [id number] INTERPRETATION 04/07/2018 %Hba1C Cax264 % HbA1c 66713-0 7.2 % 03/31/2018 %Hba1C Ysk455 Gluc Ave 160 mg/dL 03/31/2018 Lipid Ord30 CHOL 124 mg/dL 12/22/2017 Lipid Ord30 HDL 29.0 mg/dl 12/22/2017 Lipid Ord30 TRIG 185 mg/dL 12/22/2017 Lipid Ord30 LDL 58 mg/dL 12/22/2017 Lipid Ord30 C/HDL 4.3 Ratio 12/22/2017 %Hba1C Crd109 % HbA1c 63341-0 7.1 % 12/22/2017 %Hba1C Eae774 Gluc Ave 157 mg/dL 12/22/2017 Comp Metabolic Eej254 NA 141 mEq/L 12/22/2017 Comp Metabolic Avk536 K 3.9 mEq/L 12/22/2017 Comp Metabolic Hag226 CL 99 mEq/L 12/22/2017 Comp Metabolic Tmr297 CO2 32.0 mEq/L 12/22/2017 Comp Metabolic Guz759 AN ION GAP 14 12/22/2017 Comp Metabolic Ahp165 GL UCOSE 152 mg/dL 12/22/2017 Comp Metabolic Wfk051 Cr eat 1.0 mg/dL 12/22/2017 Comp Metabolic Wkq892 eG FR 78 ml/min/1.73m2 12/22 Comp Metabolic Sbz787 BUN 27 mg/dL 12/22/2017 Comp Metabolic Hpr567 B/ C Ratio 27.8 Ratio 12/22/2017 Comp Metabolic Vur753 CA LCIUM 9.7 mg/dL 12/22/2017 Comp Metabolic Iyc708 AL K PHOS 56 U/L 12/22/2017 Comp Metabolic Swi265 T(SGOT) 18 U/L 12/22/2017 Comp Metabolic Non212 AL T(SGPT) 20 U/L 12/22/2017 Comp Metabolic Fsy245 BI LI T 0.4 mg/dL 12/22/2017 Comp Metabolic Juk261 AL BUMIN 4.2 g/dL 12/22/2017 Comp Metabolic Eim179 TP RO 6.4 g/dL 12/22/2017 Comp Metabolic Bwh051 GL OB 2.2 g/dL 12/22/2017 Comp Metabolic Aoy441 A/ G Ratio 1.9 Ratio 12/22/2017 Comp Metabolic Bam164 Os mo 289 mOsmo 12/22/2017 Cbc With Differential Ord2 WBC 9.63 [...] 31.3 pg 12/22/2017 Cbc With Differential Ord2 [place]% 11.5 % 12/22/2017 Cbc With Differential Ord2 [...] 2.16 K/ul 12/22/2017 Cbc With Differential Ord2 [place] ABS# 1.1 K/ul 12/22/2017 Cbc With Differential Ord2 Eos ABS# 0.1 K/ul 12/22/2017 Cbc With Differential Ord2 Baso ABS# 0.0 K/ul 12/22/2017 %Hba1C Qbv842 % HbA1c 91509-7 6.9 % 09/22/2017 %Hba1C Kmu649 Gluc Ave 151 mg/dL 09/22/2017 Cbc With Differential Ord2 WBC 10.41 K/ul [...] 31.5 pg 09/22/2017 Cbc With Differential Ord2 [place]% 8.4 % 09/22/2017 Cbc With Differential Ord2 [...] 1.83 K/ul 09/22/2017 Cbc With Differential Ord2 [place] ABS# 0.9 K/ul 09/22/2017 Cbc With Differential Ord2 Eos ABS# 0.0 K/ul 09/22/2017 Cbc With Differential Ord2 Baso ABS# 0.0 K/ul 09/22/2017 Lipid Ord30 CHOL 141 mg/dL 06/17/2017 Lipid Ord30 HDL 30.0 mg/dl 06/17/2017 Lipid Ord30 TRIG 270 mg/dL 06/17/2017 Lipid Ord30 LDL 57 mg/dL 06/17/2017 Lipid Ord30 C/HDL 4.7 Ratio 06/17/2017 Comp Metabolic Too206 NA 137 mEq/L 06/17/2017 Comp Metabolic Ovb336 K 3.8 mEq/L 06/17/2017 Comp Metabolic Wgl189 CL 98 mEq/L 06/17/2017 Comp Metabolic Wol335 CO2 30.0 mEq/L 06/17/2017 Comp Metabolic Yod604 AN ION GAP 13 06/17/2017 Comp Metabolic Lcy332 GL UCOSE 157 mg/dL 06/17/2017 Comp Metabolic Ywz976 Cr eat 1.0 mg/dL 06/17/2017 Comp Metabolic Nwn257 eG FR 76 ml/min/1.73m2 06/17 Comp Metabolic Tiw786 BUN 18 mg/dL 06/17/2017 Comp Metabolic Npe396 B/ C Ratio 18.0 Ratio 06/17/2017 Comp Metabolic Daa718 CA LCIUM 9.8 mg/dL 06/17/2017 Comp Metabolic Pep953 AL K PHOS 57 U/L 06/17/2017 Comp Metabolic Vwb056 T(SGOT) 19 U/L 06/17/2017 Comp Metabolic Mhb003 AL T(SGPT) 23 U/L 06/17/2017 Comp Metabolic Mpe059 BI LI T 0.6 mg/dL 06/17/2017 Comp Metabolic Ncr356 AL BUMIN 4.4 g/dL 06/17/2017 Comp Metabolic Ugn301 TP RO 6.8 g/dL 06/17/2017 Comp Metabolic Rpa892 GL OB 2.4 g/dL 06/17/2017 Comp Metabolic Unb279 A/ G Ratio 1.9 Ratio 06/17/2017 Comp Metabolic Kly420 Os mo 279 mOsmo 06/17/2017 %Hba1C Vxe025 % HbA1c 45469-2 7.3 % 06/17/2017 %Hba1C Ktj700 Gluc Ave 163 mg/dL 06/17/2017 Tsh Ord6 hTSH II 1.87 uIU/mL 06/17/2017 Cbc With Differential Ord2 WBC 10.39 [...] 31.6 pg 06/17/2017 Cbc With Differential Ord2 [place]% 11.1 % 06/17/2017 Cbc With Differential Ord2 [...] 2.35 K/ul 06/17/2017 Cbc With Differential Ord2 [place] ABS# 1.2 K/ul 06/17/2017 Cbc With Differential Ord2 Eos ABS# 0.1 K/ul 06/17/2017 Cbc With Differential Ord2 Baso ABS# 0.0 K/ul 06/17/2017 Review of Systems System Result Effective [...] skin Location: scalp 10/08/2017 AK - right buddhist, mid fo rehead/scalp, left posterior neck - [...] skin Location: scalp 08/27/2017 [place] - right buddhist, mid fo rehead/scalp - cryotherapy to area, [...] CPT-4: J3301 10/15/2018 THER/PROPH/DIAG INJ SC/IM CPT-4: 44177 10/15/2018 ADMIN INFLUENZA VIRU S VAC CPT-4: G0008 06/24/2018 FLU VACC PRSV FREE I NC ANTIG CPT-4: 11379 06/24/2018 GLUC MONITOR CONT PH YS I&R CPT-4: 00971 01/27/2018 PPPS, SUBSEQ VISIT CPT- 4: G0439 01/21/2018 GLUCOSE MONITORING CONT CPT-4: 74426 01/06/2018 ADMIN INFLUENZA VIRU S VAC CPT-4: G0008 06/09/2017 FLU VACC PRSV FREE I NC ANTIG CPT-4: 45209 06/09/2017 Vital Signs Date Vital 10/15/2018 Blood Pressure 1: 140/70 Code: 8480-6 BMI: 33.5 Code: 42728-7 Heart Rate 1: 72 bpm Height: 5'8" SpO2: 98% Weight: 220 lbs 08/05/2018 Blood Pressure 1: 132/56 Code: 8480-6 BMI: 34.5 Code: 92687-6 Heart Rate 1: 65 bpm Height: 5'8" SpO2: 95% Weight: 227 lbs 06/22/2018 Blood Pressure 1: 144/86 Code: 8480-6 BMI: 36.0 Code: 82648-0 Heart Rate 1: 74 bpm Height: 5'8" SpO2: 98% Weight: 237 lbs 05/14/2018 Blood Pressure 1: 132/72 Code: 8480-6 Height: Weight: 04/27/2018 Blood Pressure 1: 148/78 Code: 8480-6 BMI: 35.6 Code: 42443-1 Heart Rate 1: 77 bpm Height: 5'8" SpO2: 97% Weight: 234 lbs 04/03/2018 Blood Pressure 1: 156/80 Code: 8480-6 BMI: 35.4 Code: 84520-3 Heart Rate 1: 70 bpm Height: 5'8" SpO2: 97% Weight: 233 lbs 01/27/2018 BMI: 35.6 Code: 60036-3 Heart Rate 1: 86 bpm Height: 5'8" SpO2: 98% Weight: 234 lbs 01/21/2018 Heigh t: Weight: 01/06/2018 Heigh t: Weight: 12/31/2017 Blood Pressure 1: 140/86 Code: 8480-6 BMI: 34.2 Code: 66024-2 Heart Rate 1: 80 bpm Height: 5'8" SpO2: 98% Weight: 225 lbs 10/08/2017 Blood Pressure 1: 152/74 Code: 8480-6 BMI: 34.2 Code: 29054-6 Heart Rate 1: 67 bpm Height: 5'8" SpO2: 98% Weight: 225 lbs 08/27/2017 Blood Pressure 1: 144/82 Code: 8480-6 BMI: 34.2 Code: 28211-2 Heart Rate 1: 70 bpm Height: 5'8" SpO2: 98% Weight: 225 lbs 06/10/2017 Blood Pressure 1: 150/84 Code: 8480-6 BMI: 35.0 Code: 12890-8 Heart Rate 1: 67 bpm Height: 5'8" SpO2: 98% Weight: 230 lbs 05/20/2017 Blood Pressure 1: 146/76 Code: 8480-6 BMI: 35.3 Code: 30825-3 Heart Rate 1: 70 bpm Height: 5'8" [...] Encounters Encounter Performer Loca tion Codes Date 62007 EST. PATIENT, LEVEL IV Diagnosis: Other acute sinusitis[ICD10: J01.80] Diagnosis: Other allergic rhinitis[ICD10: J30.89] [facility] CPT-4: 16693 10/15/2018 [id number] EST. PATIENT, LEVEL III Diagnosis: Type 2 diabetes mellitus with hyperglycemia[ICD10: E11.65] [facility] CPT-4: 25468 08/05/2018 50002 EST. PATIENT, LEVEL III Diagnosis: Type 2 diabetes mellitus with hyperglycemia[ICD10: E11.65] Laney Guerrero MD, [facility] CPT-4: 78338 06/22/2018 92066 EST. PATIENT, LEVEL IV Diagnosis: Diplopia[ICD10: H53.2] Diagnosis: Other specified anemias[ICD10: D64.89] Laney Guerrero MD, [facility] CPT-4: 02027 05/14/2018 38033 EST. PATIENT, LEVEL III Diagnosis: Benign paroxysmal vertigo, bilateral[ICD10: H81.13] Diagnosis: Other allergic rhinitis[ICD10: J30.89] Laney Guerrero MD, [facility] CPT-4: 97496 04/27/2018 21966 EST. PATIENT, LEVEL III Diagnosis: Type 2 diabetes mellitus with hyperglycemia[ICD10: E11.65] Diagnosis: Other fatigue[ICD10: R53.83] Diagnosis: Other malaise[ICD10: R53.81] Diagnosis: Bitten or stung by nonvenomous insect and other nonvenomous arthropods, initial encounter[ICD10: W57.XXXA] Diagnosis: Cellulitis of right upper limb[ICD10: L03.113] Diagnosis: Mixed hyperlipidemia[ICD10: E78.2] Laney Guerrero MD, [facility] CPT-4: 81281 04/03/2018 (08040) 87527 EST. P ATIENT, LEVEL III Diagnosis: Type 2 diabetes mellitus with hyperglycemia[ICD10: E11.65] Laney Guerrero MD, [facility] CPT-4: 08295 01/27/2018 ([id number]) Miscellaneou s no charge Diagnosis: Type 2 diabetes mellitus with hyperglycemia[ICD10: E11.65] Laney Guerrero MD, [facility] CPT-4: 28760 01/13/2018 60992 EST. PATIENT, LEVEL III Diagnosis: Type 2 diabetes mellitus with hyperglycemia[ICD10: E11.65] Diagnosis: Essential (primary) hypertension[ICD10: I10] Diagnosis: Mixed hyperlipidemia[ICD10: E78.2] Laney Guerrero MD, [facility] CPT-4: 96176 12/31/2017 76560 EST. PATIENT, LEVEL III Diagnosis: Type 2 diabetes mellitus with hyperglycemia[ICD10: E11.65] Diagnosis: Essential (primary) hypertension[ICD10: I10] Diagnosis: Mixed hyperlipidemia[ICD10: E78.2] Diagnosis: Actinic keratosis[ICD10: L57.0] Laney Guerrero MD, [facility] CPT-4: 11775 10/08/2017 00937 EST. PATIENT, LEVEL III Diagnosis: Type 2 diabetes mellitus with hyperglycemia[ICD10: E11.65] Diagnosis: Essential (primary) hypertension[ICD10: I10] Diagnosis: Mixed hyperlipidemia[ICD10: E78.2] Diagnosis: Actinic keratosis[ICD10: L57.0] Laney Guerrero MD, [facility] CPT-4: 95443 08/27/2017 98838 EST. PATIENT, LEVEL III Diagnosis: Type 2 diabetes mellitus with hyperglycemia[ICD10: E11.65] Diagnosis: Essential (primary) hypertension[ICD10: I10] Diagnosis: Mixed hyperlipidemia[ICD10: E78.2] Laney Guerrero MD, [facility] CPT-4: 36729 06/25/2017 ([id number]) 41217 EST. 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 10/15/2018 Appointment: Laney Luther WPtel: [phone] [facility] (30 min) Complex 10/15/2018 Patient [...] control. 08/05/2018 Appointment: Laney Luther WPtel: [phone] [facility] (15 min) Moderate 08/05/2018 Patient Education: Patient Medication Summary Completed 08/05/2018 [phone] ([facility]) Moderate 07/17/2018 Referral: Kevin Cuevas [...] control. 06/22/2018 Appointment: Laney Luther WPtel: [phone] [facility] (15 min) Moderate 06/22/2018 Patient Education: Patient Medication Summary Completed 06/22/2018 Patient Education: Diabetes Completed 06/22/2018 Care Plan: Referral Order SNOMED-CT : [id number] Pending 06/22/2018 Referral: Christian Johnson [address] Referral Initiated 06/02/2018 Appointment: Nurse Visit [...] concerns. 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 04/03/2018 Appointment: [phone] [facility] ([facility] min) Moderate 04/03/2018 Patient Education: Patient Medication Summary Completed 04/03/2018 [facility]ment[facility] [phone] [id number] (30 min) Complex 03/31/2018 Patient Education: [...] control. 01/27/2018 App[facility] [phone] [id number] ([facility]) Complex 01/27/2018 Patient Education: [...] Completed 01/21/2018 [facility] [phone] [id number] (15 min) Moderate 01/13/2018 Patient Education: [...] glucose control. 01/06/2018 Appointment: Laney Luther WPtel: [address] [place] [id number] (15 min) Moderate 01/06/2018 Patient Education: Patient [...] medications. 12/31/2017 [facility] [phone] [id number] ([facility]) Complex 12/31/2017 Patient Education: [...] concerns. 10/08/2017 App[facility] [phone] [id number] ([facility]) Complex 10/08/2017 Patient Education: Patient Medication Summary Completed 10/08/2017 App[facility]ment: [phone] [facility] (15 min) Moderate 10/07/2017 Visit Plan: [...] acute concerns. 08/27/2017 Appointment: Laney Luther WPtel[facility] (30 min) Complex 08/27/2017 Patient Education: Patient Medication Summary Completed 08/27/2017 Visit Plan: Diabetes Mellitus - Elio harris [...] Appointment: Laney Luther WPtel: [address] [facility] (30 min) Complex 06/25/2017 Patient Education: Patient Medication Summary Completed 06/25/2017 Appointment: Debra Ramirez WPtel: [phone] [phone] (30 min) Complex 06/24/2017 Visit Plan: [...] medications. 06/10/2017 Appointment: [facility]el[facility] [phone] [facility] (30 min) Complex 06/10/2017 Patient Education: [...] glucose control. 05/20/2017 Appointment: Laney Luther WPtel: [address] [place], [place] [address] New Patient 05/20/2017 Patient Education: Patient Medication Summary Completed 05/20/2017 [facility] Referral Initiated Referral: Kevin Cuevas Referral Initiated [...] steroid allergy spray. GET RECENT LABS FROM [facility] FASTING LABS NEXT WEEK UNLESS WE [...]
--- OUTSIDE RECORDS SUMMARY | 2020-02-09 07:17 | XMS REPORT | CCD ---
Author Author Gunnar Luther Organization Karo Guerrero MD, [facility] Address [address] [place] [address] Phone Care Team Providers Care Freight Booker Name Role Phone PP Unavailable CCM Unavailable Summary Purpose Interface Exchange Insurance Providers Payer name Policy type / Coverage type Covered constitution party ID Effective Begin Date Effective End Date WPS Medicare Part B Medicare Part B [id number] Unknown Aetna Medicare Part B AH [id number] Unknown Cigna Medicare Part B 80 [id number] Unknown Family history Sister Diagnosis Age At [...] ed reddy 05/20/[address]: 931632781 Never smoker 05/20/[address]: 297124419 Never drinks alcohol 05/20/2017 Allergies, Adverse Reactions, [...] Date Stop Date Sta tus Fill Instructions Kenalog 40 mg/mL benitez pension for injection RxNorm: 4648811 1 Milliliter(s) Inj 10/15/2018 10/15/2018 In active Tradjenta 5 mg tablet RxNorm: 4490001 TAKE 1 TABLET BY MOUTH DAILY 09/18/2018 02/14/2019 Ac tive metformin ER 750 mg tablet,extended release 24 hr RxNorm: 804974 2 TABLET(S) PO DAILY 07/13/2018 11/09/2018 Ac tive Tradjenta 5 mg tablet RxNorm: 6841159 TAKE 1 TABLET BY MOUTH DAILY 07/02/2018 09/17/2018 In active One Touch Test strips RxNorm: 1 Miscellaneous BID 06/29/2018 07/28/2018 Inactive Zyrtec 10 mg tablet RxNorm: 7833520 1 Tablet(s) PO daily 04/27/2018 05/26/2018 Inactive doxycycline hyclate 100 mg capsule RxNorm: 7864966 1 Capsule(s) PO BID 04/03/2018 04/12/2018 In active meclizine 25 mg tablet RxNorm: 233222 1 Tablet(s) PO TID as needed Dizziness 04/03/2018 04/07/2018 In active metformin ER 750 mg tablet,extended release 24 hr RxNorm: 998525 2 TABLET(S) PO DAILY 02/03/2018 06/02/2018 Inactive glimepiride 2 mg tablet RxNorm: 934411 TAKE 1 TABLET BY MOUTH TWICE DAILY FOR D IABETES 01/13/2018 04/07/2019 Active glimepiride 2 mg tablet RxNorm: 716280 TAKE 1 TABLET BY MOUTH TWICE DAILY FOR D IABETES 01/11/2018 01/05/2019 Active diltiazem CD 360 mg capsule,extended release 24 hr RxNorm: 552999 1 CAPSULE(S) PO QHS 01/02/2018 12/27/2018 Ac tive atenolol 50 mg-chlor thalidone 25 mg tablet RxNorm: 741782 1 Tablet(s) PO daily 12/18/2017 12/12/2018 Ac tive PLEASE SEND REFILL REQUESTS ELECTRONICAL LY Tradjenta 5 mg tablet RxNorm: 0068336 TAKE 1 TABLET BY MOUTH DAILY 12/15/2017 05/13/2018 In active metformin ER 750 mg tablet,extended release 24 hr RxNorm: 350755 2 TABLET(S) PO DAILY 11/05/2017 02/02/2018 Inactive metformin ER 750 mg tablet,extended release 24 hr RxNorm: 854931 2 TABLET(S) PO DAILY 11/03/2017 02/02/2018 Inactive atorvastatin 20 mg t ablet RxNorm: 477581 TAKE 1 TABLET BY MOUT H EVERY NIGHT AT BEDTIME FOR CHOLESTEROL 08/28/2017 08/22/2018 Inactive Zithromax Z-Maury 250 mg tablet RxNorm: 247210 1 Tablet(s) PO UD 08/15/2017 04/13/2018 Inactive Tamiflu 75 mg capsule RxNorm: 454722 1 Capsule(s) PO BID 08/15/2017 08/14/2017 Inactive Tamiflu 75 mg capsule RxNorm: 304821 1 Capsule(s) PO BID 08/15/2017 08/19/2017 Inactive Tradjenta 5 mg tablet RxNorm: 0719867 TAKE 1 TABLET BY MOUTH DAILY 08/12/2017 12/09/2017 In active metformin ER 750 mg tablet,extended release 24 hr RxNorm: 366423 TAKE 2 TABLET BY MOUT H ONCE A DAY DIRECTED 08/08/2017 No Stop Date Active SAVINGS FOR NON-COVERED MEDICATIONS Claims: BIN: [id number], PCN: [id number], GROUP: [id number], Patient ID: [id number] Phone; Questions: [facility] [phone] metformin ER 750 mg tablet,extended release 24 hr RxNorm: 935358 2 Tablet(s) PO daily 08/07/2017 08/06/2017 Inactive metformin ER 750 mg tablet,extended release 24 hr RxNorm: 206346 2 Tablet(s) PO daily 08/07/2017 11/02/2017 Inactive glimepiride 2 mg tablet RxNorm: 641455 TAKE 1 TABLET BY MOUTH TWICE DAILY FOR D IABETES 07/18/2017 01/10/2018 Inactive diltiazem CD 360 mg capsule,extended release 24 hr RxNorm: 676669 1 Capsule(s) PO QHS 07/03/2017 12/29/2017 Inactive One Touch Test strips RxNorm: 1 Miscellaneous daily 05/30/2017 06/28/2017 Inactive One Touch Test strips RxNorm: 1 Miscellaneous daily 05/30/2017 05/29/2017 Inactive iron gluconate-B cmp lx-potassium iodide-minerals oral RxNorm: 12327 oral No Start Date Active Super B Complex 100 tablet RxNorm: 1 Tablet(s) PO daily No Start Date Active Glucosamine Chondroi tin Maximum Strength oral RxNorm: 4845 oral No Start Date Active garlic 1,000 mg capsule RxNorm: 871096 1 Capsule(s) PO BID No Start Date Active vitamin E (dl, aceta te) 400 unit capsule RxNorm: 104642 1 Capsule(s) PO daily No Start Date Active beta carotene 25,000 unit tablet RxNorm: 762063 1 Tablet(s) PO daily No Start Date Active rutin 500 mg tablet RxNorm: 574473 1/2 Tablet(s) PO daily No Start Date Active Calcium 600 + [place] ls oral RxNorm: 047254 oral No S tart Date Active Vitamin D3 1,000 uni t tablet RxNorm: 899961 1 Tablet(s) PO daily No Start Date Active Vitamin C 500 mg tablet RxNorm: 083633 1 Tablet(s) PO daily No Start Date Active acidophilus 25 susanne on cell-pectin, citrus 100 mg tablet RxNorm: 889501 1 Tablet(s) PO BID No Start Date Active Zinc and C oral RxNorm: oral No Start Date Active aspirin 81 mg chewab le tablet RxNorm: 656429 1 Tablet(s) PO QPM No Start Date Active Zegerid OTC 20 mg-1. 1 gram capsule RxNorm: 958893 1 Capsule(s) PO daily No Start Date Active magnesium 250 mg tablet RxNorm: 1 Tablet(s) PO daily No Start Date Active flaxseed oil 1,000 m g capsule RxNorm: 275363 1 Capsule(s) PO BID No Start Date Active milk thistle 175 mg tablet RxNorm: 178600 1 Tablet(s) PO daily No Start Date Active metformin ER 750 mg tablet,extended release 24 hr RxNorm: 858518 2 Tablet(s) PO daily No Start Date 08/06/2017 Inactive atorvastatin 20 mg t ablet RxNorm: 125778 1 Tablet(s) PO daily No Start Date 08/27/2017 Inactive Tradjenta 5 mg tablet RxNorm: 1358737 1 Tablet(s) PO daily No Start Date 08/11/2017 Inactive diltiazem ER 300 mg tablet,extended release 24 hr RxNorm: 612914 1 Tablet(s) PO daily No Start Date 05/18/2017 Inactive glimepiride 2 mg tablet RxNorm: 578719 1 Tablet(s) PO BID No Start Date 07/17/2017 Inactive Zithromax Z-Maury 250 mg tablet RxNorm: 265327 1 Tablet(s) PO UD No Start Date 08/14/2017 Inactive atenolol 50 mg-chlor thalidone 25 mg tablet RxNorm: 847093 1 Tablet(s) PO daily No Start Date 12/17/2017 Inactive diltiazem CD 360 mg capsule,extended release 24 hr RxNorm: 476261 1 Capsule(s) PO QHS No Start Date 07/02/2017 Inactive Medication Administered Medication Codes Instruc tions Start Date Status Kenalog 40 mg/mL suspension for injection RxNorm: 6668707 1Milliliter 10/15/2018 A ctive Immunizations Vaccine Codes Date Status Influenza CVX: [...] 31.4 pg 08/03/2018 Cbc With Differential Ord2 [place]% 11.9 % 08/03/2018 Cbc With Differential Ord2 [...] 1.62 K/ul 08/03/2018 Cbc With Differential Ord2 [place] ABS# 0.9 K/ul 08/03/2018 Cbc With Differential Ord2 Eos ABS# 0.1 K/ul 08/03/2018 Cbc With Differential Ord2 Baso ABS# 0.0 K/ul 08/03/2018 Comp Metabolic Nmf957 NA 135 mEq/L 08/03/2018 Comp Metabolic Hry427 K 3.5 mEq/L 08/03/2018 Comp Metabolic Stu829 CL 95 mEq/L 08/03/2018 Comp Metabolic Put692 CO2 30.0 mEq/L 08/03/2018 Comp Metabolic Fny381 AN ION GAP 14 08/03/2018 Comp Metabolic Jhp924 GL UCOSE 152 mg/dL 08/03/2018 Comp Metabolic Qpg118 Cr eat 1.2 mg/dL 08/03/2018 Comp Metabolic Zhm476 eG FR 61 ml/min/1.73m2 08/03 Comp Metabolic Xhv364 BUN 23 mg/dL 08/03/2018 Comp Metabolic Ykl732 B/ C Ratio 19.0 Ratio 08/03/2018 Comp Metabolic Tvy398 CA LCIUM 9.6 mg/dL 08/03/2018 Comp Metabolic Pxn928 AL K PHOS 51 U/L 08/03/2018 Comp Metabolic Voz025 T(SGOT) 20 U/L 08/03/2018 Comp Metabolic Rgh069 AL T(SGPT) 24 U/L 08/03/2018 Comp Metabolic Emy584 BI LI T 0.5 mg/dL 08/03/2018 Comp Metabolic Fwb051 AL BUMIN 4.3 g/dL 08/03/2018 Comp Metabolic Xpm585 TP RO 6.8 g/dL 08/03/2018 Comp Metabolic Dsa612 GL OB 2.6 g/dL 08/03/2018 Comp Metabolic Tuy843 A/ G Ratio 1.7 Ratio 08/03/2018 Comp Metabolic Pyu275 Os mo 277 mOsmo 08/03/2018 %Hba1C Ffy337 % HbA1c 80261-3 7.3 % 08/03/2018 %Hba1C Oih800 Gluc Ave 163 mg/dL 08/03/2018 Cbc With [...] 31.2 pg 05/14/2018 Cbc With Differential Ord2 [place]% 12.2 % 05/14/2018 Cbc With Differential Ord2 [...] 1.81 K/ul 05/14/2018 Cbc With Differential Ord2 [place] ABS# 1.0 K/ul 05/14/2018 Cbc With Differential Ord2 Eos ABS# 0.1 K/ul 05/14/2018 Cbc With Differential Ord2 Baso ABS# 0.0 K/ul 05/14/2018 Ehrlichia Chaffeensis Antibody Igm [id number] EHRLICHIA CHAFFEENSIS IGM < 1:16 04/09/2018 Ehrlichia Chaffeensis Antibody Igg 591942 EHRLICHIA CHAFFEENSIS IGG 1:64 04/09/2018 [place] Spotted Fever Igg/Igm 41673 3 LOTUS MT SPOTTED FEVER IGM EIA . 04/09/2018 [place] Spotted Fever Igg/Igm 43560 3 RMSF, IGM 0.36 index 04/09/2018 [place] Spotted Fever Igg/Igm 24952 3 LOTUS MT SPOTTED FEVER IGG EIA FLEX . 04/09/2018 [place] Spotted Fever Igg/Igm 04003 3 RMSF, IGG SCREEN-FLEX Negative 04/09/2018 Lymes Disease Total Antibodies With Western Blot Refle x 286127 B. BURGDORFERI, IGG/IGM 0.31 04/07/2018 Lymes Disease Total Antibodies With Western Blot Refle x [id number] INTERPRETATION 04/07/2018 %Hba1C Hkd916 % HbA1c 92426-7 7.2 % 03/31/2018 %Hba1C Fdf072 Gluc Ave 160 mg/dL 03/31/2018 Lipid Ord30 [...] 31.3 pg 12/22/2017 Cbc With Differential Ord2 [place]% 11.5 % 12/22/2017 Cbc With Differential Ord2 [...] 2.16 K/ul 12/22/2017 Cbc With Differential Ord2 [place] ABS# 1.1 K/ul 12/22/2017 Cbc With Differential Ord2 Eos ABS# 0.1 K/ul 12/22/2017 Cbc With Differential Ord2 Baso ABS# 0.0 K/ul 12/22/2017 Comp Metabolic Thw842 NA 141 mEq/L 12/22/2017 Comp Metabolic Eie397 K 3.9 mEq/L 12/22/2017 Comp Metabolic Zlq628 CL 99 mEq/L 12/22/2017 Comp Metabolic Eth672 CO2 32.0 mEq/L 12/22/2017 Comp Metabolic Eqq246 AN ION GAP 14 12/22/2017 Comp Metabolic Bfs192 GL UCOSE 152 mg/dL 12/22/2017 Comp Metabolic Vln597 Cr eat 1.0 mg/dL 12/22/2017 Comp Metabolic Orv033 eG FR 78 ml/min/1.73m2 12/22 Comp Metabolic Ccz459 BUN 27 mg/dL 12/22/2017 Comp Metabolic Oga750 B/ C Ratio 27.8 Ratio 12/22/2017 Comp Metabolic Upy887 CA LCIUM 9.7 mg/dL 12/22/2017 Comp Metabolic Gki626 AL K PHOS 56 U/L 12/22/2017 Comp Metabolic Lsa457 T(SGOT) 18 U/L 12/22/2017 Comp Metabolic Tlm879 AL T(SGPT) 20 U/L 12/22/2017 Comp Metabolic Ryl753 BI LI T 0.4 mg/dL 12/22/2017 Comp Metabolic Lrh107 AL BUMIN 4.2 g/dL 12/22/2017 Comp Metabolic Uul731 TP RO 6.4 g/dL 12/22/2017 Comp Metabolic Xxi305 GL OB 2.2 g/dL 12/22/2017 Comp Metabolic Mdw480 A/ G Ratio 1.9 Ratio 12/22/2017 Comp Metabolic Psr650 Os mo 289 mOsmo 12/22/2017 %Hba1C Mhk347 % HbA1c 17561-8 7.1 % 12/22/2017 %Hba1C Hpk512 Gluc Ave 157 mg/dL 12/22/2017 Cbc With [...] 31.5 pg 09/22/2017 Cbc With Differential Ord2 [place]% 8.4 % 09/22/2017 Cbc With Differential Ord2 [...] 1.83 K/ul 09/22/2017 Cbc With Differential Ord2 [place] ABS# 0.9 K/ul 09/22/2017 Cbc With Differential Ord2 Eos ABS# 0.0 K/ul 09/22/2017 Cbc With Differential Ord2 Baso ABS# 0.0 K/ul 09/22/2017 %Hba1C Hqq780 % HbA1c 71522-5 6.9 % 09/22/2017 %Hba1C Rto478 Gluc Ave 151 mg/dL 09/22/2017 Tsh Ord6 [...] 31.6 pg 06/17/2017 Cbc With Differential Ord2 [place]% 11.1 % 06/17/2017 Cbc With Differential Ord2 [...] 2.35 K/ul 06/17/2017 Cbc With Differential Ord2 [place] ABS# 1.2 K/ul 06/17/2017 Cbc With Differential Ord2 Eos ABS# 0.1 K/ul 06/17/2017 Cbc With Differential Ord2 Baso ABS# 0.0 K/ul 06/17/2017 %Hba1C Kww227 % HbA1c 38276-3 7.3 % 06/17/2017 %Hba1C Itm511 Gluc Ave 163 mg/dL 06/17/2017 Comp Metabolic Adw901 NA 137 mEq/L 06/17/2017 Comp Metabolic Nzx787 K 3.8 mEq/L 06/17/2017 Comp Metabolic Opc057 CL 98 mEq/L 06/17/2017 Comp Metabolic Ajo109 CO2 30.0 mEq/L 06/17/2017 Comp Metabolic Ggc071 AN ION GAP 13 06/17/2017 Comp Metabolic Rpx597 GL UCOSE 157 mg/dL 06/17/2017 Comp Metabolic Dnf094 Cr eat 1.0 mg/dL 06/17/2017 Comp Metabolic Ouz088 eG FR 76 ml/min/1.73m2 06/17 Comp Metabolic Kmz658 BUN 18 mg/dL 06/17/2017 Comp Metabolic Jqk219 B/ C Ratio 18.0 Ratio 06/17/2017 Comp Metabolic Mcy432 CA LCIUM 9.8 mg/dL 06/17/2017 Comp Metabolic Ckg129 AL K PHOS 57 U/L 06/17/2017 Comp Metabolic Wsj580 T(SGOT) 19 U/L 06/17/2017 Comp Metabolic Zip756 AL T(SGPT) 23 U/L 06/17/2017 Comp Metabolic Fsl214 BI LI T 0.6 mg/dL 06/17/2017 Comp Metabolic Gpv322 AL BUMIN 4.4 g/dL 06/17/2017 Comp Metabolic Jow710 TP RO 6.8 g/dL 06/17/2017 Comp Metabolic Ufh785 GL OB 2.4 g/dL 06/17/2017 Comp Metabolic Vcf227 A/ G Ratio 1.9 Ratio 06/17/2017 Comp Metabolic Xxy194 Os mo 279 mOsmo 06/17/2017 Review of [...] distress 05/14/2018 None Full Exam - General 1995 Constitutional general appearance Overall: well nourished 05/14/2018 [...] accomodation 05/14/2018 None Full Exam - General 1995 Ears/Nose/Throat otoscopic exam Overall: tympanic membranes clear [...] rate 01/27/2018 None Full Exam - General 1995 Musculoskeletal head and neck Overall: head atraumatic [...] skin Location: scalp 10/08/2017 [place] - right jain, mid fo rehead/scalp, left posterior neck - [...] skin Location: scalp 08/27/2017 [place] - right jain, mid fo rehead/scalp - cryotherapy to area, [...] CPT-4: J3301 10/15/2018 THER/PROPH/DIAG INJ SC/IM CPT-4: 70449 10/15/2018 ADMIN INFLUENZA VIRU S VAC CPT-4: G0008 06/24/2018 FLU VACC PRSV FREE I NC ANTIG CPT-4: 64849 06/24/2018 GLUC MONITOR CONT PH YS I&R CPT-4: 21591 01/27/2018 PPPS, SUBSEQ VISIT CPT- 4: G0439 01/21/2018 GLUCOSE MONITORING CONT CPT-4: 31500 01/06/2018 ADMIN INFLUENZA VIRU S VAC CPT-4: G0008 06/09/2017 FLU VACC PRSV FREE I NC ANTIG CPT-4: 43409 06/09/2017 Vital Signs Date Vital 10/15/2018 Blood Pressure 1: 140/70 Code: 8480-6 BMI: 33.5 Code: 90927-4 Heart Rate 1: 72 bpm Height: 5'8" SpO2: 98% Weight: 220 lbs 08/05/2018 Blood Pressure 1: 132/56 Code: 8480-6 BMI: 34.5 Code: 26904-8 Heart Rate 1: 65 bpm Height: 5'8" SpO2: 95% Weight: 227 lbs 06/22/2018 Blood Pressure 1: 144/86 Code: 8480-6 BMI: 36.0 Code: 93942-6 Heart Rate 1: 74 bpm Height: 5'8" SpO2: 98% Weight: 237 lbs 05/14/2018 Blood Pressure 1: 132/72 Code: 8480-6 Height: Weight: 04/27/2018 Blood Pressure 1: 148/78 Code: 8480-6 BMI: 35.6 Code: 27485-6 Heart Rate 1: 77 bpm Height: 5'8" SpO2: 97% Weight: 234 lbs 04/03/2018 Blood Pressure 1: 156/80 Code: 8480-6 BMI: 35.4 Code: 82017-8 Heart Rate 1: 70 bpm Height: 5'8" SpO2: 97% Weight: 233 lbs 01/27/2018 BMI: 35.6 Code: 34240-2 Heart Rate 1: 86 bpm Height: 5'8" SpO2: 98% Weight: 234 lbs 01/21/2018 Heigh t: Weight: 01/06/2018 Heigh t: Weight: 12/31/2017 Blood Pressure 1: 140/86 Code: 8480-6 BMI: 34.2 Code: 50644-4 Heart Rate 1: 80 bpm Height: 5'8" SpO2: 98% Weight: 225 lbs 10/08/2017 Blood Pressure 1: 152/74 Code: 8480-6 BMI: 34.2 Code: 48940-4 Heart Rate 1: 67 bpm Height: 5'8" SpO2: 98% Weight: 225 lbs 08/27/2017 Blood Pressure 1: 144/82 Code: 8480-6 BMI: 34.2 Code: 42912-9 Heart Rate 1: 70 bpm Height: 5'8" SpO2: 98% Weight: 225 lbs 06/10/2017 Blood Pressure 1: 150/84 Code: 8480-6 BMI: 35.0 Code: 94339-3 Heart Rate 1: 67 bpm Height: 5'8" SpO2: 98% Weight: 230 lbs 05/20/2017 Blood Pressure 1: 146/76 Code: 8480-6 BMI: 35.3 Code: 39267-5 Heart Rate 1: 70 bpm Height: 5'8" [...] Encounters Encounter Performer Loca tion Codes Date 68333 EST. PATIENT, LEVEL IV Diagnosis: Other acute sinusitis[ICD10: J01.80] Diagnosis: Other allergic rhinitis[ICD10: J30.89] Laney Guerrero MD, [facility] CPT-4: 40065 10/15/2018 27455 EST. PATIENT, LEVEL III Diagnosis: Type 2 diabetes mellitus with hyperglycemia[ICD10: E11.65] Laney Guerrero MD, [facility] CPT-4: 93925 08/05/2018 26673 EST. PATIENT, LEVEL III Diagnosis: Type 2 diabetes mellitus with hyperglycemia[ICD10: E11.65] Laney Guerrero MD, [facility] CPT-4: 89091 06/22/2018 14154 EST. PATIENT, LEVEL IV Diagnosis: Diplopia[ICD10: H53.2] Diagnosis: Other specified anemias[ICD10: D64.89] Laney Guerrero MD, [facility] CPT-4: 55107 05/14/2018 04474 EST. PATIENT, LEVEL III Diagnosis: Benign paroxysmal vertigo, bilateral[ICD10: H81.13] Diagnosis: Other allergic rhinitis[ICD10: J30.89] Laney Guerrero MD, [facility] CPT-4: 23658 04/27/2018 02508 EST. PATIENT, LEVEL III Diagnosis: Type 2 diabetes mellitus with hyperglycemia[ICD10: E11.65] Diagnosis: Other fatigue[ICD10: R53.83] Diagnosis: Other malaise[ICD10: R53.81] Diagnosis: Bitten or stung by nonvenomous insect and other nonvenomous arthropods, initial encounter[ICD10: W57.XXXA] Diagnosis: Cellulitis of right upper limb[ICD10: L03.113] Diagnosis: Mixed hyperlipidemia[ICD10: E78.2] Laney Guerrero MD, [facility] CPT-4: 67940 04/03/2018 ([id number]) 26573 EST. P ATIENT, LEVEL III Diagnosis: Type 2 diabetes mellitus with hyperglycemia[ICD10: E11.65] Laney Guerrero MD, [facility] CPT-4: 92899 01/27/2018 ([id number]) Miscellaneou s no charge Diagnosis: Type 2 diabetes mellitus with hyperglycemia[ICD10: E11.65] Laney Guerrero MD, [facility] CPT-4: 35934 01/13/2018 14064 EST. PATIENT, LEVEL III Diagnosis: Type 2 diabetes mellitus with hyperglycemia[ICD10: E11.65] Diagnosis: Essential (primary) hypertension[ICD10: I10] Diagnosis: Mixed hyperlipidemia[ICD10: E78.2] Laney Guerrero MD, [facility] CPT-4: 30623 12/31/2017 98157 EST. PATIENT, LEVEL III Diagnosis: Type 2 diabetes mellitus with hyperglycemia[ICD10: E11.65] Diagnosis: Essential (primary) hypertension[ICD10: I10] Diagnosis: Mixed hyperlipidemia[ICD10: E78.2] Diagnosis: Actinic keratosis[ICD10: L57.0] Laney Guerrero MD, [facility] CPT-4: 49501 10/08/2017 39771 EST. PATIENT, LEVEL III Diagnosis: Type 2 diabetes mellitus with hyperglycemia[ICD10: E11.65] Diagnosis: Essential (primary) hypertension[ICD10: I10] Diagnosis: Mixed hyperlipidemia[ICD10: E78.2] Diagnosis: Actinic keratosis[ICD10: L57.0] Laney Guerrero MD, [facility] CPT-4: 29531 08/27/2017 70176 EST. PATIENT, LEVEL III Diagnosis: Type 2 diabetes mellitus with hyperglycemia[ICD10: E11.65] Diagnosis: Essential (primary) hypertension[ICD10: I10] Diagnosis: Mixed hyperlipidemia[ICD10: E78.2] Laney Guerrero MD, [facility] CPT-4: 08588 06/25/2017 ([id number]) 97940 EST. 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 10/15/2018 Patient Education: Patient Medication Summary Completed [...] control. 08/05/2018 Appointment: Laney Luther WPtel: [phone] [facility] (15 min) Moderate 08/05/2018 Patient Education: Patient Medication Summary Completed 08/05/2018 Appointment: Laney Luther WPtel: [phone] [facility] (15 min) Moderate 07/17/2018 Referral: Kevin Cuevas [...] control. 06/22/2018 Appointment: Laney Luther WPtel: [phone] [facility] (15 min) Moderate 06/22/2018 Patient Education: Patient Medication Summary Completed 06/22/2018 Patient Education: Diabetes Completed 06/22/2018 Care Plan: Referral Order SNOMED-CT : [id number] Pending 06/22/2018 [facility] Referral Initiated 06/02/2018 Appointment: Nurse Visit 05/18/2018 [...] or concerns. 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 04/03/2018 Appointment: Lane[facility] Luther [facility]el[phone] (15 min) Moderate 04/03/2018 Patient Education: Patient Medication Summary Completed 04/03/2018 Appointment: Laney Luther [facility]Ptel[phone] (30 min) Complex 03/31/2018 Patient Education: [...] control. 01/27/2018 Appointment: Laney Luther [facility]Ptel: [phone] (30 min) Complex 01/27/2018 Patient Education: [...] Completed 01/21/2018 Appointment: Laney Luther [facility]Ptel[phone] (15 min) Moderate 01/13/2018 Patient Education: [...] glucose control. 01/06/2018 Appointment: Laney Luther WPtel[phone] [facility] (15 min) Moderate 01/06/2018 Patient Education: Patient Medication Summary Completed 01/06/2018 Visit Plan: Hypertension - well con дмитрийed - continue with current medications, continue with [...] medications. 12/31/2017 Appointment: Laney Luther [facility]Ptel[phone] (30 min) Complex 12/31/2017 Patient Education: [...] any other acute concerns. 10/08/2017 Appointment: Laney Lutherl: [phone] (30 min) Complex 10/08/2017 Patient Education: Patient Medication Summary Completed 10/08/2017 Appointment: Laney Luthertel: [phone] [facility] (15 min) Moderate 10/07/2017 Visit Plan: [...] acute concerns. 08/27/2017 Appointment: Laney Luther WPtel: [facility] (30 min) Complex 08/27/2017 Patient Education: [...] to medications. 06/25/2017 Appointment: Laney Luther WPtel: [facility] (30 min) Complex 06/25/2017 Patient Education: Patient Medication Summary Completed 06/25/2017 Appointment: Debra Ramirez WPtel: [phone] [phone] (30 min) Complex 06/24/2017 Visit Plan: Hypertension [...] medications. 06/10/2017 Appointment: Debra Ramirez WPtel: [phone] [phone] (30 min) Complex 06/10/2017 Patient Education: Patient [...] glucose control. 05/20/2017 Appointment: Laney Luther WPtel: [address] [place], [place] [address] New Patient 05/20/2017 Patient Education: Patient Medication Summary Completed 05/20/2017 Referral: [facility] Referral Initiated Referral: Kevin Cuevas Referral Initiated [...] steroid allergy spray. GET RECENT LABS FROM [facility] FASTING LABS NEXT WEEK UNLESS [...]
--- OUTSIDE RECORDS SUMMARY | 2020-02-09 07:18 | XMS REPORT | CCD ---
Author Author Gunnar Luther Organization Karo Guerrero MD, [facility] Address [address] [place] [address] Phone Care Team Providers Care Hearing Screen Coordinator Name Role Phone PP Unavailable CCM Unavailable Summary Purpose Interface Exchange Insurance Providers Payer name Policy type / Coverage type Covered democrat ID Effective Begin Date Effective End Date WPS Medicare Part B Medicare Part B [id number] Unknown Aetna Medicare Part B AH [id number] Unknown Cigna Medicare Part B 80 [id number] Unknown Family history Sister Diagnosis Age At [...] ed reddy 05/20/[address]: 057941182 Never smoker 05/20/[address]: 072754960 Never drinks alcohol 05/20/2017 Allergies, Adverse Reactions, Alerts Substance Reaction Codes Entered Date Inactivated Date Status Penicillin Unknown 05/20/2017 No In active Date Active PENICILLINS Unknown 05/20/2017 No In active Date Active Past Medical History Illness Codes Condition Status Onset Date Resolved Date Type 2 diabetes stevo itus with hyperglycemia ICD-9: 250.02 ICD-10: E11.65 Active 05/20/2017 Unknown Encounter for immuni zation ICD-9: V04.81 ICD-10: Z23 Active 06/09/2017 Unknown Anemia, unspecified ICD- 9: 285.9 ICD-10: D64.9 Active 05/14/2018 Unknown Diplopia ICD-9: 368.2 ICD-10: H53.2 Active 05/14/2018 Unknown Benign paroxysmal ve rtigo, bilateral ICD-9: 386.11 ICD-10: H81.13 Active 04/27/2018 Unknown Other allergic rhinitis ICD-9: 477.8 ICD-10: J30.89 Active 04/27/2018 Unknown Bitten or stung by [...] Condition Codes Effectiv e Dates Condition Status Type 2 diabetes stevo itus with hyperglycemia ICD-9: 250.02 ICD-10: E11.65 05/20/2017 Active Encounter for immuni zation ICD-9: V04.81 ICD-10: Z23 06/09/2017 Active Anemia, unspecified ICD- 9: 285.9 ICD-10: D64.9 05/14/2018 Active Diplopia ICD-9: 368.2 ICD-10: H53.2 05/14/2018 Active Benign paroxysmal ve rtigo, bilateral ICD-9: 386.11 ICD-10: H81.13 04/27/2018 Active Other allergic rhinitis ICD-9: 477.8 ICD-10: J30.89 04/27/2018 Active Bitten or stung by n [...] 750 mg tablet,extended release 24 hr RxNorm: 636621 2 TABLET(S) PO DAILY 07/13/2018 11/09/2018 Ac tive Tradjenta 5 mg tablet RxNorm: 0577965 TAKE 1 TABLET BY MOUTH DAILY 07/02/2018 11/28/2018 Ac tive One Touch Test strips RxNorm: 1 Miscellaneous BID 06/29/2018 07/28/2018 Inactive Zyrtec 10 mg tablet RxNorm: 6625430 1 Tablet(s) PO daily 04/27/2018 05/26/2018 Inactive doxycycline hyclate 100 mg capsule RxNorm: 9537085 1 Capsule(s) PO BID 04/03/2018 04/12/2018 In active meclizine 25 mg tablet RxNorm: 594744 1 Tablet(s) PO TID as needed Dizziness 04/03/2018 04/07/2018 In active metformin ER 750 mg tablet,extended release 24 hr RxNorm: 965055 2 TABLET(S) PO DAILY 02/03/2018 06/02/2018 Inactive glimepiride 2 mg tablet RxNorm: 796333 TAKE 1 TABLET BY MOUTH TWICE DAILY FOR D IABETES 01/13/2018 04/07/2019 Active glimepiride 2 mg tablet RxNorm: 381202 TAKE 1 TABLET BY MOUTH TWICE DAILY FOR D IABETES 01/11/2018 01/05/2019 Active diltiazem CD 360 mg capsule,extended release 24 hr RxNorm: 679569 1 CAPSULE(S) PO QHS 01/02/2018 12/27/2018 Ac tive atenolol 50 mg-chlor thalidone 25 mg tablet RxNorm: 362100 1 Tablet(s) PO daily 12/18/2017 12/12/2018 Ac tive PLEASE SEND REFILL REQUESTS ELECTRONICAL LY Tradjenta 5 mg tablet RxNorm: 3647176 TAKE 1 TABLET BY MOUTH DAILY 12/15/2017 05/13/2018 In active metformin ER 750 mg tablet,extended release 24 hr RxNorm: 028110 2 TABLET(S) PO DAILY 11/05/2017 02/02/2018 Inactive metformin ER 750 mg tablet,extended release 24 hr RxNorm: 625086 2 TABLET(S) PO DAILY 11/03/2017 02/02/2018 Inactive atorvastatin 20 mg t ablet RxNorm: 748883 TAKE 1 TABLET BY MOUT H EVERY NIGHT AT BEDTIME FOR CHOLESTEROL 08/28/2017 08/22/2018 Active Zithromax Z-Maury 250 mg tablet RxNorm: 462714 1 Tablet(s) PO UD 08/15/2017 04/13/2018 Inactive Tamiflu 75 mg capsule RxNorm: 329645 1 Capsule(s) PO BID 08/15/2017 08/14/2017 Inactive Tamiflu 75 mg capsule RxNorm: 101231 1 Capsule(s) PO BID 08/15/2017 08/19/2017 Inactive Tradjenta 5 mg tablet RxNorm: 3950167 TAKE 1 TABLET BY MOUTH DAILY 08/12/2017 12/09/2017 In active metformin ER 750 mg tablet,extended release 24 hr RxNorm: 670333 TAKE 2 TABLET BY MOUT H ONCE A DAY DIRECTED 08/08/2017 No Stop Date Active SAVINGS FOR NON-COVERED MEDICATIONS Claims: BIN: [id number], PCN: [id number], GROUP: [id number], Patient ID: [id number] Phone; Questions: [facility] [phone] metformin ER 750 mg tablet,extended release 24 hr RxNorm: 142151 2 Tablet(s) PO daily 08/07/2017 08/06/2017 Inactive metformin ER 750 mg tablet,extended release 24 hr RxNorm: 591017 2 Tablet(s) PO daily 08/07/2017 11/02/2017 Inactive glimepiride 2 mg tablet RxNorm: 554896 TAKE 1 TABLET BY MOUTH TWICE DAILY FOR D IABETES 07/18/2017 01/10/2018 Inactive diltiazem CD 360 mg capsule,extended release 24 hr RxNorm: 451202 1 Capsule(s) PO QHS 07/03/2017 12/29/2017 Inactive One Touch Test strips RxNorm: 1 Miscellaneous daily 05/30/2017 06/28/2017 Inactive One Touch Test strips RxNorm: 1 Miscellaneous daily 05/30/2017 05/29/2017 Inactive iron gluconate-B cmp lx-potassium iodide-minerals oral RxNorm: 76459 oral No Start Date Active Super B Complex 100 tablet RxNorm: 1 Tablet(s) PO daily No Start Date Active Glucosamine Chondroi tin Maximum Strength oral RxNorm: 4845 oral No Start Date Active garlic 1,000 mg capsule RxNorm: 720539 1 Capsule(s) PO BID No Start Date Active vitamin E (dl, aceta te) 400 unit capsule RxNorm: 144513 1 Capsule(s) PO daily No Start Date Active beta carotene 25,000 unit tablet RxNorm: 734825 1 Tablet(s) PO daily No Start Date Active rutin 500 mg tablet RxNorm: 579348 1/2 Tablet(s) PO daily No Start Date Active Calcium 600 + Min[place] ls oral RxNorm: 869277 oral No S tart Date Active Vitamin D3 1,000 uni t tablet RxNorm: 169496 1 Tablet(s) PO daily No Start Date Active Vitamin C 500 mg tablet RxNorm: 172971 1 Tablet(s) PO daily No Start Date Active acidophilus 25 susanne on cell-pectin, citrus 100 mg tablet RxNorm: 690549 1 Tablet(s) PO BID No Start Date Active Zinc and C oral RxNorm: oral No Start Date Active aspirin 81 mg chewab le tablet RxNorm: 872575 1 Tablet(s) PO QPM No Start Date Active Zegerid OTC 20 mg-1. 1 gram capsule RxNorm: 328429 1 Capsule(s) PO daily No Start Date Active magnesium 250 mg tablet RxNorm: 1 Tablet(s) PO daily No Start Date Active flaxseed oil 1,000 m g capsule RxNorm: 295361 1 Capsule(s) PO BID No Start Date Active milk thistle 175 mg tablet RxNorm: 597880 1 Tablet(s) PO daily No Start Date Active metformin ER 750 mg tablet,extended release 24 hr RxNorm: 344467 2 Tablet(s) PO daily No Start Date 08/06/2017 Inactive atorvastatin 20 mg t ablet RxNorm: 809956 1 Tablet(s) PO daily No Start Date 08/27/2017 Inactive Tradjenta 5 mg tablet RxNorm: 7150228 1 Tablet(s) PO daily No Start Date 08/11/2017 Inactive diltiazem ER 300 mg tablet,extended release 24 hr RxNorm: 417098 1 Tablet(s) PO daily No Start Date 05/18/2017 Inactive glimepiride 2 mg tablet RxNorm: 850134 1 Tablet(s) PO BID No Start Date 07/17/2017 Inactive Zithromax Z-Maury 250 mg tablet RxNorm: 256150 1 Tablet(s) PO UD No Start Date 08/14/2017 Inactive atenolol 50 mg-chlor thalidone 25 mg tablet RxNorm: 796657 1 Tablet(s) PO daily No Start Date 12/17/2017 Inactive diltiazem CD 360 mg capsule,extended release 24 hr RxNorm: 678082 1 Capsule(s) PO QHS No Start Date 07/02/2017 Inactive Medication Administered No Medication Administered data Immunizations Vaccine Codes Date Status Influenza CVX: [...] bilateral ICD-10: H81.13 ICD-9: 386.11 04/27/2018 Other allergic rhinitis ICD-10: J30. 89 ICD-9: 477.8 04/27/2018 Other fatigue ICD-10: R53.83 ICD-9: 780.79 [...] For Visit Effective Dates Notes diabetes mellitus 08/05/2018 vaccination against influenza 06/24/2018 [...] 13.3 g/dl 08/03/2018 Cbc With Differential Ord2 Neut% 64.9 % 08/03/2018 Cbc With Differential Ord2 HCT 38.9 % 08/03/2018 Cbc With Differential Ord2 MCV 91.7 fl 08/03/2018 Cbc With Differential Ord2 Lymph% 21.6 % 08/03/2018 Cbc With Differential Ord2 Ellis% 11.9 % 08/03/2018 Cbc With Differential Ord2 MCH 31.4 pg 08/03/2018 Cbc With Differential Ord2 MCHC 34.2 pg 08/03/2018 Cbc With Differential Ord2 Eos% 1.3 % 08/03/2018 Cbc With Differential Ord2 PLT 255 K/ul 08/03/2018 Cbc With Differential Ord2 Baso% 0.3 % 08/03/2018 Cbc With Differential Ord2 Neut ABS# 4.88 K/ul 08/03/2018 Cbc With Differential Ord2 RDW 13.2 % 08/03/2018 Cbc With Differential Ord2 Lymph ABS# 1.62 K/ul 08/03/2018 Cbc With Differential Ord2 Ellis ABS# 0.9 K/ul 08/03/2018 Cbc With Differential Ord2 Eos ABS# 0.1 K/ul 08/03/2018 Cbc With Differential Ord2 Baso ABS# 0.0 K/ul 08/03/2018 Comp Metabolic Zed126 NA 135 mEq/L 08/03/2018 Comp Metabolic Hvz432 K 3.5 mEq/L 08/03/2018 Comp Metabolic Saj786 CL 95 mEq/L 08/03/2018 Comp Metabolic Jgg121 CO2 30.0 mEq/L 08/03/2018 Comp Metabolic Wvr869 AN ION GAP 14 08/03/2018 Comp Metabolic Ckz267 GL UCOSE 152 mg/dL 08/03/2018 Comp Metabolic Toy873 Cr eat 1.2 mg/dL 08/03/2018 Comp Metabolic Pyw467 eG FR 61 ml/min/1.73m2 08/03 Comp Metabolic Fmh652 BUN 23 mg/dL 08/03/2018 Comp Metabolic Ojt294 B/ C Ratio 19.0 Ratio 08/03/2018 Comp Metabolic Yin615 CA LCIUM 9.6 mg/dL 08/03/2018 Comp Metabolic Fxn882 AL K PHOS 51 U/L 08/03/2018 Comp Metabolic Nws962 T(SGOT) 20 U/L 08/03/2018 Comp Metabolic Xim739 AL T(SGPT) 24 U/L 08/03/2018 Comp Metabolic Rwi110 BI LI T 0.5 mg/dL 08/03/2018 Comp Metabolic Krv301 AL BUMIN 4.3 g/dL 08/03/2018 Comp Metabolic Irb674 TP RO 6.8 g/dL 08/03/2018 Comp Metabolic Fop932 GL OB 2.6 g/dL 08/03/2018 Comp Metabolic Wmx565 A/ G Ratio 1.7 Ratio 08/03/2018 Comp Metabolic Gbe730 Os mo 277 mOsmo 08/03/2018 %Hba1C Vil860 % HbA1c 57900-8 7.3 % 08/03/2018 %Hba1C Nrl058 Gluc Ave 163 mg/dL 08/03/2018 Cbc With Differential Ord2 WBC 7.96 K/ul 05/14/2018 Cbc With Differential Ord2 RBC 4.43 M/ul 05/14/2018 Cbc With Differential Ord2 HGB 13.8 g/dl 05/14/2018 Cbc With Differential Ord2 Neut% 63.8 % 05/14/2018 Cbc With Differential Ord2 HCT 40.9 % 05/14/2018 Cbc With Differential Ord2 Lymph% 22.7 % 05/14/2018 Cbc With Differential Ord2 MCV 92.3 fl 05/14/2018 Cbc With Differential Ord2 Ellis% 12.2 % 05/14/2018 Cbc With Differential Ord2 MCH 31.2 pg 05/14/2018 Cbc With Differential Ord2 Eos% 1.0 % 05/14/2018 Cbc With Differential Ord2 MCHC 33.7 pg 05/14/2018 Cbc With Differential Ord2 PLT 266 K/ul 05/14/2018 Cbc With Differential Ord2 Baso% 0.3 % 05/14/2018 Cbc With Differential Ord2 RDW 13.2 % 05/14/2018 Cbc With Differential Ord2 Neut ABS# 5.08 K/ul 05/14/2018 Cbc With Differential Ord2 Lymph ABS# 1.81 K/ul 05/14/2018 Cbc With Differential Ord2 Ellis ABS# 1.0 K/ul 05/14/2018 Cbc With Differential Ord2 Eos ABS# 0.1 K/ul 05/14/2018 Cbc With Differential Ord2 Baso ABS# 0.0 K/ul 05/14/2018 Ehrlichia Chaffeensis Antibody Igm [id number] EHRLICHIA CHAFFEENSIS IGM < 1:16 04/09/2018 Ehrlichia Chaffeensis Antibody Igg 582980 EHRLICHIA CHAFFEENSIS IGG 1:64 04/09/2018 [place]joy Spotted Fever Igg/Igm 19848 3 LOTUS MT SPOTTED FEVER IGM EIA . 04/09/2018 [place] Spotted Fever Igg/Igm 12358 3 RMSF, IGM 0.36 index 04/09/2018 [place] Spotted Fever Igg/Igm 87282 3 LOTUS MT SPOTTED FEVER IGG EIA FLEX . 04/09/2018 [place] Spotted Fever Igg/Igm 83280 3 RMSF, IGG SCREEN-FLEX Negative 04/09/2018 Lymes Disease Total Antibodies With Western Blot Refle x 500228 B. BURGDORFERI, IGG/IGM 0.31 04/07/2018 Lymes Disease Total Antibodies With Western Blot Refle x [id number] INTERPRETATION 04/07/2018 %Hba1C Ikd855 % HbA1c 16731-5 7.2 % 03/31/2018 %Hba1C Qfd603 Gluc Ave 160 mg/dL 03/31/2018 Lipid Ord30 CHOL 124 mg/dL 12/22/2017 Lipid Ord30 HDL 29.0 mg/dl 12/22/2017 Lipid Ord30 TRIG 185 mg/dL 12/22/2017 Lipid Ord30 LDL 58 mg/dL 12/22/2017 Lipid Ord30 C/HDL 4.3 Ratio 12/22/2017 Cbc With Differential Ord2 WBC 9.63 K/ul 12/22/2017 Cbc With Differential Ord2 RBC 4.51 M/ul 12/22/2017 Cbc With Differential Ord2 HGB 14.1 g/dl 12/22/2017 Cbc With Differential Ord2 Neut% 65.0 % 12/22/2017 Cbc With Differential Ord2 HCT 41.6 % 12/22/2017 Cbc With Differential Ord2 Lymph% 22.4 % 12/22/2017 Cbc With Differential Ord2 MCV 92.2 fl 12/22/2017 Cbc With Differential Ord2 MCH 31.3 pg 12/22/2017 Cbc With Differential Ord2 Ellis% 11.5 % 12/22/2017 Cbc With Differential Ord2 Eos% 0.9 % 12/22/2017 Cbc With Differential Ord2 MCHC 33.9 pg 12/22/2017 Cbc With Differential Ord2 Baso% 0.2 % 12/22/2017 Cbc With Differential Ord2 PLT 223 K/ul 12/22/2017 Cbc With Differential Ord2 RDW 13.4 % 12/22/2017 Cbc With Differential Ord2 Neut ABS# 6.25 K/ul 12/22/2017 Cbc With Differential Ord2 Lymph ABS# 2.16 K/ul 12/22/2017 Cbc With Differential Ord2 Ellis ABS# 1.1 K/ul 12/22/2017 Cbc With Differential Ord2 Eos ABS# 0.1 K/ul 12/22/2017 Cbc With Differential Ord2 Baso ABS# 0.0 K/ul 12/22/2017 Comp Metabolic Jen861 NA 141 mEq/L 12/22/2017 Comp Metabolic Lwb268 K 3.9 mEq/L 12/22/2017 Comp Metabolic Fzy899 CL 99 mEq/L 12/22/2017 Comp Metabolic Ueq055 CO2 32.0 mEq/L 12/22/2017 Comp Metabolic Udk187 AN ION GAP 14 12/22/2017 Comp Metabolic Npj970 GL UCOSE 152 mg/dL 12/22/2017 Comp Metabolic Fyk797 Cr eat 1.0 mg/dL 12/22/2017 Comp Metabolic Rtk205 eG FR 78 ml/min/1.73m2 12/22 Comp Metabolic Mpz840 BUN 27 mg/dL 12/22/2017 Comp Metabolic Rmi730 B/ C Ratio 27.8 Ratio 12/22/2017 Comp Metabolic Jzc207 CA LCIUM 9.7 mg/dL 12/22/2017 Comp Metabolic Zkx295 AL K PHOS 56 U/L 12/22/2017 Comp Metabolic Qsl826 T(SGOT) 18 U/L 12/22/2017 Comp Metabolic Mhs016 AL T(SGPT) 20 U/L 12/22/2017 Comp Metabolic Rse443 BI LI T 0.4 mg/dL 12/22/2017 Comp Metabolic Qmh257 AL BUMIN 4.2 g/dL 12/22/2017 Comp Metabolic Rgr226 TP RO 6.4 g/dL 12/22/2017 Comp Metabolic Shk875 GL OB 2.2 g/dL 12/22/2017 Comp Metabolic Oxu494 A/ G Ratio 1.9 Ratio 12/22/2017 Comp Metabolic Scs504 Os mo 289 mOsmo 12/22/2017 %Hba1C Vpc262 % HbA1c 68143-7 7.1 % 12/22/2017 %Hba1C Wja222 Gluc Ave 157 mg/dL 12/22/2017 Cbc With [...] 31.5 pg 09/22/2017 Cbc With Differential Ord2 Ellis% 8.4 % 09/22/2017 Cbc With Differential Ord2 [...] 1.83 K/ul 09/22/2017 Cbc With Differential Ord2 Ellis ABS# 0.9 K/ul 09/22/2017 Cbc With Differential Ord2 Eos ABS# 0.0 K/ul 09/22/2017 Cbc With Differential Ord2 Baso ABS# 0.0 K/ul 09/22/2017 %Hba1C Bfq902 % HbA1c 00575-2 6.9 % 09/22/2017 %Hba1C Pbf533 Gluc Ave 151 mg/dL 09/22/2017 Tsh Ord6 [...] 14.4 g/dl 06/17/2017 Cbc With Differential Ord2 Neut% 64.9 % 06/17/2017 Cbc With Differential Ord2 HCT 41.7 % 06/17/2017 Cbc With Differential Ord2 Lymph% 22.6 % 06/17/2017 Cbc With Differential Ord2 MCV 91.6 fl 06/17/2017 Cbc With Differential Ord2 MCH 31.6 pg 06/17/2017 Cbc With Differential Ord2 Ellis% 11.1 % 06/17/2017 Cbc With Differential Ord2 Eos% 1.2 % 06/17/2017 Cbc With Differential Ord2 MCHC 34.5 pg 06/17/2017 Cbc With Differential Ord2 PLT 242 K/ul 06/17/2017 Cbc With Differential Ord2 Baso% 0.2 % 06/17/2017 Cbc With Differential Ord2 Neut ABS# 6.75 K/ul 06/17/2017 Cbc With Differential Ord2 RDW 13.3 % 06/17/2017 Cbc With Differential Ord2 Lymph ABS# 2.35 K/ul 06/17/2017 Cbc With Differential Ord2 Ellis ABS# 1.2 K/ul 06/17/2017 Cbc With Differential Ord2 Eos ABS# 0.1 K/ul 06/17/2017 Cbc With Differential Ord2 Baso ABS# 0.0 K/ul 06/17/2017 %Hba1C Kvl738 % HbA1c 90373-4 7.3 % 06/17/2017 %Hba1C Liv014 Gluc Ave 163 mg/dL 06/17/2017 Comp Metabolic Rcx899 NA 137 mEq/L 06/17/2017 Comp Metabolic Ndt677 K 3.8 mEq/L 06/17/2017 Comp Metabolic Gst394 CL 98 mEq/L 06/17/2017 Comp Metabolic Ucy521 CO2 30.0 mEq/L 06/17/2017 Comp Metabolic Juc001 AN ION GAP 13 06/17/2017 Comp Metabolic Vep509 GL UCOSE 157 mg/dL 06/17/2017 Comp Metabolic Zev242 Cr eat 1.0 mg/dL 06/17/2017 Comp Metabolic Jnj222 eG FR 76 ml/min/1.73m2 06/17 Comp Metabolic Gug287 BUN 18 mg/dL 06/17/2017 Comp Metabolic Wrn566 B/ C Ratio 18.0 Ratio 06/17/2017 Comp Metabolic Pgm926 CA LCIUM 9.8 mg/dL 06/17/2017 Comp Metabolic Kel912 AL K PHOS 57 U/L 06/17/2017 Comp Metabolic Qon990 T(SGOT) 19 U/L 06/17/2017 Comp Metabolic Vmh944 AL T(SGPT) 23 U/L 06/17/2017 Comp Metabolic Nor571 BI LI T 0.6 mg/dL 06/17/2017 Comp Metabolic Tje280 AL BUMIN 4.4 g/dL 06/17/2017 Comp Metabolic Plb410 TP RO 6.8 g/dL 06/17/2017 Comp Metabolic Bbj854 GL OB 2.4 g/dL 06/17/2017 Comp Metabolic Qfq207 A/ G Ratio 1.9 Ratio 06/17/2017 Comp Metabolic Tpa151 Os mo 279 mOsmo 06/17/2017 Review of Systems System Result Effective Dates Constitutional No recent illness 08/05/2018 Constitutional No [...] skin Location: scalp 10/08/2017 [place] - right restorationism, mid fo rehead/scalp, left posterior neck - [...] skin Location: scalp 08/27/2017 [place] - right restorationism, mid fo rehead/scalp - cryotherapy to area, [...] contact 05/20/2017 None Procedures Procedure Codes Date ADMIN INFLUENZA VIRU S VAC CPT-4: G0008 06/24/2018 FLU VACC PRSV FREE I NC ANTIG CPT-4: 88614 06/24/2018 GLUC MONITOR CONT PH YS I&R CPT-4: 68333 01/27/2018 PPPS, SUBSEQ VISIT CPT- 4: G0439 01/21/2018 GLUCOSE MONITORING CONT CPT-4: 29555 01/06/2018 ADMIN INFLUENZA VIRU S VAC CPT-4: G0008 06/09/2017 FLU VACC PRSV FREE I NC ANTIG CPT-4: 39924 06/09/2017 Vital Signs Date Vital 08/05/2018 Blood Pressure 1: 132/56 Code: 8480-6 BMI: 34.5 Code: 77299-4 Heart Rate 1: 65 bpm Height: 5'8" SpO2: 95% Weight: 227 lbs 06/22/2018 Blood Pressure 1: 144/86 Code: 8480-6 BMI: 36.0 Code: 64053-4 Heart Rate 1: 74 bpm Height: 5'8" SpO2: 98% Weight: 237 lbs 05/14/2018 Blood Pressure 1: 132/72 Code: 8480-6 Height: Weight: 04/27/2018 Blood Pressure 1: 148/78 Code: 8480-6 BMI: 35.6 Code: 51970-3 Heart Rate 1: 77 bpm Height: 5'8" SpO2: 97% Weight: 234 lbs 04/03/2018 Blood Pressure 1: 156/80 Code: 8480-6 BMI: 35.4 Code: 63565-9 Heart Rate 1: 70 bpm Height: 5'8" SpO2: 97% Weight: 233 lbs 01/27/2018 BMI: 35.6 Code: 80822-9 Heart Rate 1: 86 bpm Height: 5'8" SpO2: 98% Weight: 234 lbs 01/21/2018 Heigh t: Weight: 01/06/2018 Heigh t: Weight: 12/31/2017 Blood Pressure 1: 140/86 Code: 8480-6 BMI: 34.2 Code: 30980-6 Heart Rate 1: 80 bpm Height: 5'8" SpO2: 98% Weight: 225 lbs 10/08/2017 Blood Pressure 1: 152/74 Code: 8480-6 BMI: 34.2 Code: 66724-0 Heart Rate 1: 67 bpm Height: 5'8" SpO2: 98% Weight: 225 lbs 08/27/2017 Blood Pressure 1: 144/82 Code: 8480-6 BMI: 34.2 Code: 36656-9 Heart Rate 1: 70 bpm Height: 5'8" SpO2: 98% Weight: 225 lbs 06/10/2017 Blood Pressure 1: 150/84 Code: 8480-6 BMI: 35.0 Code: 75434-4 Heart Rate 1: 67 bpm Height: 5'8" SpO2: 98% Weight: 230 lbs 05/20/2017 Blood Pressure 1: 146/76 Code: 8480-6 BMI: 35.3 Code: 04209-3 Heart Rate 1: 70 bpm Height: 5'8" SpO2: 98% Weight: 232 lbs Functional Status No Functional Status data History of Present Illness Symptom Name Status Resu lt Effective Date Notes Quality chronic 08/05/2018 None Alleviating Factors me [...] Codes Date EST. PATIENT, LEVEL III Diagnosis: Type 2 diabetes mellitus with hyperglycemia[ICD10: E11.65] Laney Guerrero MD, [facility] CPT-4: 49321 08/05/2018 67850 EST. PATIENT, LEVEL III Diagnosis: Type 2 diabetes mellitus with hyperglycemia[ICD10: E11.65] Laney Guerrero MD, [facility] CPT-4: 90269 06/22/2018 10771 EST. PATIENT, LEVEL IV Diagnosis: Diplopia[ICD10: H53.2] Diagnosis: Other specified anemias[ICD10: D64.89] Laney Guererro MD, [facility] CPT-4: 59286 05/14/2018 [id number] EST. PATIENT, LEVEL III Diagnosis: Benign paroxysmal vertigo, bilateral[ICD10: H81.13] Diagnosis: Other allergic rhinitis[ICD10: J30.89] Laney Guerrero MD, [facility] CPT-4: 48632 04/27/2018 72926 EST. PATIENT, LEVEL III Diagnosis: Type 2 diabetes mellitus with hyperglycemia[ICD10: E11.65] Diagnosis: Other fatigue[ICD10: R53.83] Diagnosis: Other malaise[ICD10: R53.81] Diagnosis: Bitten or stung by nonvenomous insect and other nonvenomous arthropods, initial encounter[ICD10: W57.XXXA] Diagnosis: Cellulitis of right upper limb[ICD10: L03.113] Diagnosis: Mixed hyperlipidemia[ICD10: E78.2] Laney Guerrero MD, [facility] CPT-4: 69216 04/03/2018 ([id number]) 99467 EST. P ATIENT, LEVEL III Diagnosis: Type 2 diabetes mellitus with hyperglycemia[ICD10: E11.65] Laney Guerrero MD, [facility] CPT-4: 32566 01/27/2018 ([id number]) Miscellaneou s no charge Diagnosis: Type 2 diabetes mellitus with hyperglycemia[ICD10: E11.65] Laney Guerrero MD, [facility] CPT-4: 00126 01/13/2018 81254 EST. PATIENT, LEVEL III Diagnosis: Type 2 diabetes mellitus with hyperglycemia[ICD10: E11.65] Diagnosis: Essential (primary) hypertension[ICD10: I10] Diagnosis: Mixed hyperlipidemia[ICD10: E78.2] Laney Guerrero MD, [facility] CPT-4: 52719 12/31/2017 71765 EST. PATIENT, LEVEL III Diagnosis: Type 2 diabetes mellitus with hyperglycemia[ICD10: E11.65] Diagnosis: Essential (primary) hypertension[ICD10: I10] Diagnosis: Mixed hyperlipidemia[ICD10: E78.2] Diagnosis: Actinic keratosis[ICD10: L57.0] Laney Guerrero MD, [facility] CPT-4: 02463 10/08/2017 46933 EST. PATIENT, LEVEL III Diagnosis: Type 2 diabetes mellitus with hyperglycemia[ICD10: E11.65] Diagnosis: Essential (primary) hypertension[ICD10: I10] Diagnosis: Mixed hyperlipidemia[ICD10: E78.2] Diagnosis: Actinic keratosis[ICD10: L57.0] Laney Guerrero MD, [facility] CPT-4: 09915 08/27/2017 26520 EST. PATIENT, LEVEL III Diagnosis: Type 2 diabetes mellitus with hyperglycemia[ICD10: E11.65] Diagnosis: Essential (primary) hypertension[ICD10: I10] Diagnosis: Mixed hyperlipidemia[ICD10: E78.2] [facility] CPT-4: 36318 06/25/2017 ([id number]) 20539 EST. 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 08/05/2018 Patient Education: Patient Medication Summary Completed 08/05/2018 [phone] [facility] (15 min) Moderate 07/17/2018 Referral: Kevin [...] control. 06/22/2018 Appointment: Laney Luther WPtel: [id number] (15 min) Moderate 06/22/2018 Patient Education: Patient Medication Summary Completed 06/22/2018 Patient Education: Diabetes Completed 06/22/2018 Care Plan: Referral Order SNOMED-CT : [id number] Pending 06/22/2018 Referral: [facility] Referral Initiated 06/02/2018 Appointment: Nurse Visit [...] or concerns. 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 04/03/2018 Appointment: Laney Luther WPtel[facility] (15 min) Moderate 04/03/2018 Patient Education: Patient Medication Summary Completed 04/03/2018 Appointment: Laney Luther WPtel[facility] (30 min) Complex 03/31/2018 Patient Education: [...] Completed 01/21/2018 Appointment: Laney Luther [facility]el: [phone] [facility] [...] glucose control. 01/06/2018 Appointment: Laney Luther WPtel: [address] [place], [place] [address] (15 min) Moderate 01/06/2018 Patient Education: Patient [...] to medications. 12/31/2017 Appointment: [phone] [facility] (30 min) Complex [...] concerns. 10/08/2017 Appointment: [facility] Luther [phone] [facility] (30 min) Complex 10/08/2017 Patient Education: Patient Medication Summary Completed 10/08/2017 Appointment: Lane[facility] Luther [facility]: [phone] [id number] ([place] min[place] Moderate [...] concerns. 08/27/2017 App[facility]ment: [id number] ([facility] Complex 08/27/2017 Patient Education: [...] to medications. 06/25/2017 Appointment: Lane[facility] Luther [facility]el[id number] ([facility]) Complex 06/25/2017 Patient Education: Patient Medication Summary Completed 06/25/2017 App[facility]ment: [id number] (30 min) Complex 06/24/2017 Visit Plan: [...] medications. 06/10/2017 App[facility]ment: [id number] (30 min) Complex 06/10/2017 Patient Education: Patient [...] control. 05/20/2017 Appointment: Laney Luther WPtel: [id number] New Patient 05/20/2017 Patient Education: Patient Medication Summary Completed 05/20/2017 Referral: [facility] Referral Initiated Referral: Kevin Cuevas Referral Initiated [...] call the office for further instructions/medication interventions. GET RECENT LABS FROM [facility] FASTING LABS NEXT WEEK UNLESS WE CALL [...]
--- OUTSIDE RECORDS SUMMARY | 2020-02-09 07:18 | XMS REPORT | CCD ---
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 Role Phone PP Unavailable CCM Unavailable Summary Purpose Interface Exchange Insurance Providers Payer name Policy type / Coverage type Covered republican ID Effective Begin Date Effective End Date WPS Medicare Part B Medicare Part B [id number] Unknown Aetna Medicare Part B AH [id number] Unknown Cigna Medicare Part B 80 [id number] Unknown Family history Sister Diagnosis Age At [...] ed reddy 05/20/[address]: 685422742 Never smoker 05/20/[address]: 847501540 Never drinks alcohol 05/20/2017 Allergies, Adverse Reactions, [...] Fill Instructions Tradjenta 5 mg tablet RxNorm: 0668054 TAKE 1 TABLET BY MOUTH DAILY 09/18/2018 02/14/2019 Ac tive metformin ER 750 mg tablet,extended release 24 hr RxNorm: 089711 2 TABLET(S) PO DAILY 07/13/2018 11/09/2018 Ac tive Tradjenta 5 mg tablet RxNorm: 1473492 TAKE 1 TABLET BY MOUTH DAILY 07/02/2018 09/17/2018 In active One Touch Test strips RxNorm: 1 Miscellaneous BID 06/29/2018 07/28/2018 Inactive Zyrtec 10 mg tablet RxNorm: 4003652 1 Tablet(s) PO daily 04/27/2018 05/26/2018 Inactive doxycycline hyclate 100 mg capsule RxNorm: 4574540 1 Capsule(s) PO BID 04/03/2018 04/12/2018 In active meclizine 25 mg tablet RxNorm: 013948 1 Tablet(s) PO TID as needed Dizziness 04/03/2018 04/07/2018 In active metformin ER 750 mg tablet,extended release 24 hr RxNorm: 975504 2 TABLET(S) PO DAILY 02/03/2018 06/02/2018 Inactive glimepiride 2 mg tablet RxNorm: 118924 TAKE 1 TABLET BY MOUTH TWICE DAILY FOR D IABETES 01/13/2018 04/07/2019 Active glimepiride 2 mg tablet RxNorm: 665089 TAKE 1 TABLET BY MOUTH TWICE DAILY FOR D IABETES 01/11/2018 01/05/2019 Active diltiazem CD 360 mg capsule,extended release 24 hr RxNorm: 903970 1 CAPSULE(S) PO QHS 01/02/2018 12/27/2018 Ac tive atenolol 50 mg-chlor thalidone 25 mg tablet RxNorm: 276360 1 Tablet(s) PO daily 12/18/2017 12/12/2018 Ac tive PLEASE SEND REFILL REQUESTS ELECTRONICAL LY Tradjenta 5 mg tablet RxNorm: 1506526 TAKE 1 TABLET BY MOUTH DAILY 12/15/2017 05/13/2018 In active metformin ER 750 mg tablet,extended release 24 hr RxNorm: 263523 2 TABLET(S) PO DAILY 11/05/2017 02/02/2018 Inactive metformin ER 750 mg tablet,extended release 24 hr RxNorm: 049607 2 TABLET(S) PO DAILY 11/03/2017 02/02/2018 Inactive atorvastatin 20 mg t ablet RxNorm: 643321 TAKE 1 TABLET BY MOUT H EVERY NIGHT AT BEDTIME FOR CHOLESTEROL 08/28/2017 08/22/2018 Inactive Zithromax Z-Maury 250 mg tablet RxNorm: 846091 1 Tablet(s) PO UD 08/15/2017 04/13/2018 Inactive Tamiflu 75 mg capsule RxNorm: 396386 1 Capsule(s) PO BID 08/15/2017 08/14/2017 Inactive Tamiflu 75 mg capsule RxNorm: 621086 1 Capsule(s) PO BID 08/15/2017 08/19/2017 Inactive Tradjenta 5 mg tablet RxNorm: 3309653 TAKE 1 TABLET BY MOUTH DAILY 08/12/2017 12/09/2017 In active metformin ER 750 mg tablet,extended release 24 hr RxNorm: 858462 TAKE 2 TABLET BY MOUT H ONCE A DAY DIRECTED 08/08/2017 No Stop Date Active SAVINGS FOR NON-COVERED MEDICATIONS Claims: BIN: [id number], PCN: [id number], GROUP: [place], Patient ID: [id number] Phone; Questions: [facility] [phone] metformin ER 750 mg tablet,extended release 24 hr RxNorm: 366362 2 Tablet(s) PO daily 08/07/2017 08/06/2017 Inactive metformin ER 750 mg tablet,extended release 24 hr RxNorm: 287751 2 Tablet(s) PO daily 08/07/2017 11/02/2017 Inactive glimepiride 2 mg tablet RxNorm: 767085 TAKE 1 TABLET BY MOUTH TWICE DAILY FOR D IABETES 07/18/2017 01/10/2018 Inactive diltiazem CD 360 mg capsule,extended release 24 hr RxNorm: 840524 1 Capsule(s) PO QHS 07/03/2017 12/29/2017 Inactive One Touch Test strips RxNorm: 1 Miscellaneous daily 05/30/2017 06/28/2017 Inactive One Touch Test strips RxNorm: 1 Miscellaneous daily 05/30/2017 05/29/2017 Inactive iron gluconate-B cmp lx-potassium iodide-minerals oral RxNorm: 18918 oral No Start Date Active Super B Complex 100 tablet RxNorm: 1 Tablet(s) PO daily No Start Date Active Glucosamine Chondroi tin Maximum Strength oral RxNorm: 4845 oral No Start Date Active garlic 1,000 mg capsule RxNorm: 093017 1 Capsule(s) PO BID No Start Date Active vitamin E (dl, aceta te) 400 unit capsule RxNorm: 888557 1 Capsule(s) PO daily No Start Date Active beta carotene 25,000 unit tablet RxNorm: 514458 1 Tablet(s) PO daily No Start Date Active rutin 500 mg tablet RxNorm: 085827 1/2 Tablet(s) PO daily No Start Date Active Calcium 600 + [place] ls oral RxNorm: 176801 oral No S tart Date Active Vitamin D3 1,000 uni t tablet RxNorm: 594638 1 Tablet(s) PO daily No Start Date Active Vitamin C 500 mg tablet RxNorm: 694331 1 Tablet(s) PO daily No Start Date Active acidophilus 25 susanne on cell-pectin, citrus 100 mg tablet RxNorm: 733041 1 Tablet(s) PO BID No Start Date Active Zinc and C oral RxNorm: oral No Start Date Active aspirin 81 mg chewab le tablet RxNorm: 566989 1 Tablet(s) PO QPM No Start Date Active Zegerid OTC 20 mg-1. 1 gram capsule RxNorm: 163821 1 Capsule(s) PO daily No Start Date Active magnesium 250 mg tablet RxNorm: 1 Tablet(s) PO daily No Start Date Active flaxseed oil 1,000 m g capsule RxNorm: 389498 1 Capsule(s) PO BID No Start Date Active milk thistle 175 mg tablet RxNorm: 816640 1 Tablet(s) PO daily No Start Date Active metformin ER 750 mg tablet,extended release 24 hr RxNorm: 470787 2 Tablet(s) PO daily No Start Date 08/06/2017 Inactive atorvastatin 20 mg t ablet RxNorm: 637889 1 Tablet(s) PO daily No Start Date 08/27/2017 Inactive Tradjenta 5 mg tablet RxNorm: 3583014 1 Tablet(s) PO daily No Start Date 08/11/2017 Inactive diltiazem ER 300 mg tablet,extended release 24 hr RxNorm: 636256 1 Tablet(s) PO daily No Start Date 05/18/2017 Inactive glimepiride 2 mg tablet RxNorm: 004398 1 Tablet(s) PO BID No Start Date 07/17/2017 Inactive Zithromax Z-Maury 250 mg tablet RxNorm: 845184 1 Tablet(s) PO UD No Start Date 08/14/2017 Inactive atenolol 50 mg-chlor thalidone 25 mg tablet RxNorm: 266595 1 Tablet(s) PO daily No Start Date 12/17/2017 Inactive diltiazem CD 360 mg capsule,extended release 24 hr RxNorm: 222711 1 Capsule(s) PO QHS No Start Date 07/02/2017 Inactive Medication Administered No Medication Administered data Immunizations Vaccine Codes Date Status Influenza CVX: 141 06/24 completed Influenza CVX: 141 06/09 completed Assessments Condition Codes Effectiv e Dates Type 2 diabetes mellitus with hyperglycemia ICD-10: E11.65 ICD-9: 250.02 08/05/2018 Encounter for immunization ICD-10: Z 23 ICD-9: V04.81 06/24/2018 Diplopia ICD-10: H53.2 ICD-9: 368.2 05/14/2018 Other specified anemias ICD-10: D64. 89 ICD-9: 285.8 05/14/2018 Benign paroxysmal vertigo, bilateral ICD-10: H81.13 [...] 31.4 pg 08/03/2018 Cbc With Differential Ord2 [place]% 11.9 % 08/03/2018 Cbc With Differential Ord2 MCHC 34.2 pg 08/03/2018 Cbc With Differential Ord2 Eos% 1.3 % 08/03/2018 Cbc With Differential Ord2 Baso% 0.3 % 08/03/2018 Cbc With Differential Ord2 PLT 255 K/ul 08/03/2018 Cbc With Differential Ord2 RDW 13.2 % 08/03/2018 Cbc With Differential Ord2 Neut ABS# 4.88 K/ul 08/03/2018 Cbc With Differential Ord2 Lymph ABS# 1.62 K/ul 08/03/2018 Cbc With Differential Ord2 [place] ABS# 0.9 K/ul 08/03/2018 Cbc With Differential Ord2 Eos ABS# 0.1 K/ul 08/03/2018 Cbc With Differential Ord2 Baso ABS# 0.0 K/ul 08/03/2018 %Hba1C Mnb803 % HbA1c 92209-5 7.3 % 08/03/2018 %Hba1C Tog413 Gluc Ave 163 mg/dL 08/03/2018 Comp Metabolic Lqw655 NA 135 mEq/L 08/03/2018 Comp Metabolic Vid825 K 3.5 mEq/L 08/03/2018 Comp Metabolic Tyb467 CL 95 mEq/L 08/03/2018 Comp Metabolic Fmm998 CO2 30.0 mEq/L 08/03/2018 Comp Metabolic Sjp444 AN ION GAP 14 08/03/2018 Comp Metabolic Xgo602 GL UCOSE 152 mg/dL 08/03/2018 Comp Metabolic Jbn576 Cr eat 1.2 mg/dL 08/03/2018 Comp Metabolic Lhl611 eG FR 61 ml/min/1.73m2 08/03 Comp Metabolic Hgp551 BUN 23 mg/dL 08/03/2018 Comp Metabolic Ldw920 B/ C Ratio 19.0 Ratio 08/03/2018 Comp Metabolic Tgq799 CA LCIUM 9.6 mg/dL 08/03/2018 Comp Metabolic Jcs988 AL K PHOS 51 U/L 08/03/2018 Comp Metabolic Acd796 T(SGOT) 20 U/L 08/03/2018 Comp Metabolic Lzy432 AL T(SGPT) 24 U/L 08/03/2018 Comp Metabolic Jgb796 BI LI T 0.5 mg/dL 08/03/2018 Comp Metabolic Wja671 AL BUMIN 4.3 g/dL 08/03/2018 Comp Metabolic Ltx215 TP RO 6.8 g/dL 08/03/2018 Comp Metabolic Nfp400 GL OB 2.6 g/dL 08/03/2018 Comp Metabolic Uvt867 A/ G Ratio 1.7 Ratio 08/03/2018 Comp Metabolic Unz795 Os mo 277 mOsmo 08/03/2018 Cbc With Differential Ord2 WBC 7.96 [...] 31.2 pg 05/14/2018 Cbc With Differential Ord2 [place]% 12.2 % 05/14/2018 Cbc With Differential Ord2 [...] 1.81 K/ul 05/14/2018 Cbc With Differential Ord2 [place] ABS# 1.0 K/ul 05/14/2018 Cbc With Differential Ord2 Eos ABS# 0.1 K/ul 05/14/2018 Cbc With Differential Ord2 Baso ABS# 0.0 K/ul 05/14/2018 Ehrlichia Chaffeensis Antibody Igm 595113 EHRLICHIA CHAFFEENSIS IGM < 1:16 04/09/2018 Ehrlichia Chaffeensis Antibody Igg 280298 EHRLICHIA CHAFFEENSIS IGG 1:64 04/09/2018 [place] Spotted Fever Igg/Igm 42291 3 LOTUS MT SPOTTED FEVER IGM EIA . 04/09/2018 [place] Spotted Fever Igg/Igm 08850 3 RMSF, IGM 0.36 index 04/09/2018 [place] Spotted Fever Igg/Igm 47979 3 LOTUS MS SPOTTED FEVER IGG EIA FLEX . 04/09/2018 [place] Spotted Fever Igg/Igm 71273 3 RMSF, IGG SCREEN-FLEX Negative 04/09/2018 Lymes Disease Total Antibodies With Western Blot Refle x [id number] B. BURGDORFERI, IGG/IGM 0.31 04/07/2018 Lymes Disease Total Antibodies With Western Blot Refle x 997907 INTERPRETATION 04/07/2018 %Hba1C Rkv975 % HbA1c 35796-6 7.2 % 03/31/2018 %Hba1C Vmd945 Gluc Ave 160 mg/dL 03/31/2018 %Hba1C Geu568 % HbA1c 79197-1 7.1 % 12/22/2017 %Hba1C Fvo503 Gluc Ave 157 mg/dL 12/22/2017 Comp Metabolic Vbh740 NA 141 mEq/L 12/22/2017 Comp Metabolic Sia411 K 3.9 mEq/L 12/22/2017 Comp Metabolic Mzy687 CL 99 mEq/L 12/22/2017 Comp Metabolic Ttj344 CO2 32.0 mEq/L 12/22/2017 Comp Metabolic Pxe164 AN ION GAP 14 12/22/2017 Comp Metabolic Sna533 GL UCOSE 152 mg/dL 12/22/2017 Comp Metabolic Zlp379 Cr eat 1.0 mg/dL 12/22/2017 Comp Metabolic Wiu587 eG FR 78 ml/min/1.73m2 12/22 Comp Metabolic Nwk650 BUN 27 mg/dL 12/22/2017 Comp Metabolic Bay000 B/ C Ratio 27.8 Ratio 12/22/2017 Comp Metabolic Wyw019 CA LCIUM 9.7 mg/dL 12/22/2017 Comp Metabolic Put098 AL K PHOS 56 U/L 12/22/2017 Comp Metabolic Cms691 T(SGOT) 18 U/L 12/22/2017 Comp Metabolic Bni332 AL T(SGPT) 20 U/L 12/22/2017 Comp Metabolic Owy993 BI LI T 0.4 mg/dL 12/22/2017 Comp Metabolic Oye757 AL BUMIN 4.2 g/dL 12/22/2017 Comp Metabolic Iyr118 TP RO 6.4 g/dL 12/22/2017 Comp Metabolic Bgl949 GL OB 2.2 g/dL 12/22/2017 Comp Metabolic Cfn134 A/ G Ratio 1.9 Ratio 12/22/2017 Comp Metabolic Zxx027 Os mo 289 mOsmo 12/22/2017 Cbc With Differential Ord2 WBC 9.63 K/ul 12/22/2017 Cbc With Differential Ord2 RBC 4.51 M/ul 12/22/2017 Cbc With Differential Ord2 HGB 14.1 g/dl 12/22/2017 Cbc With Differential Ord2 HCT 41.6 % 12/22/2017 Cbc With Differential Ord2 Neut% 65.0 % 12/22/2017 Cbc With Differential Ord2 Lymph% 22.4 % 12/22/2017 Cbc With Differential Ord2 MCV 92.2 fl 12/22/2017 Cbc With Differential Ord2 MCH 31.3 pg 12/22/2017 Cbc With Differential Ord2 [place]% 11.5 % 12/22/2017 Cbc With Differential Ord2 MCHC 33.9 pg 12/22/2017 Cbc With Differential Ord2 Eos% 0.9 % 12/22/2017 Cbc With Differential Ord2 Baso% 0.2 % 12/22/2017 Cbc With Differential Ord2 PLT 223 K/ul 12/22/2017 Cbc With Differential Ord2 Neut ABS# 6.25 K/ul 12/22/2017 Cbc With Differential Ord2 RDW 13.4 % 12/22/2017 Cbc With Differential Ord2 Lymph ABS# 2.16 K/ul 12/22/2017 Cbc With Differential Ord2 [place] ABS# 1.1 K/ul 12/22/2017 Cbc With Differential Ord2 Eos ABS# 0.1 K/ul 12/22/2017 Cbc With Differential Ord2 Baso ABS# 0.0 K/ul 12/22/2017 Lipid Ord30 CHOL 124 mg/dL 12/22/2017 Lipid Ord30 HDL 29.0 mg/dl 12/22/2017 Lipid Ord30 TRIG 185 mg/dL 12/22/2017 Lipid Ord30 LDL 58 mg/dL 12/22/2017 Lipid Ord30 C/HDL 4.3 Ratio 12/22/2017 Cbc With Differential Ord2 WBC 10.41 K/ul 09/22/2017 Cbc With Differential Ord2 RBC 4.63 M/ul 09/22/2017 Cbc With Differential Ord2 HGB 14.6 g/dl 09/22/2017 Cbc With Differential Ord2 Neut% 73.5 % 09/22/2017 Cbc With Differential Ord2 HCT 43.2 % 09/22/2017 Cbc With Differential Ord2 MCV 93.3 fl 09/22/2017 Cbc With Differential Ord2 Lymph% 17.6 % 09/22/2017 Cbc With Differential Ord2 MCH 31.5 pg 09/22/2017 Cbc With Differential Ord2 [place]% 8.4 % 09/22/2017 Cbc With Differential Ord2 Eos% 0.4 % 09/22/2017 Cbc With Differential Ord2 MCHC 33.8 pg 09/22/2017 Cbc With Differential Ord2 Baso% 0.1 % 09/22/2017 Cbc With Differential Ord2 PLT 222 K/ul 09/22/2017 Cbc With Differential Ord2 RDW 13.7 % 09/22/2017 Cbc With Differential Ord2 Neut ABS# 7.66 K/ul 09/22/2017 Cbc With Differential Ord2 Lymph ABS# 1.83 K/ul 09/22/2017 Cbc With Differential Ord2 [place] ABS# 0.9 K/ul 09/22/2017 Cbc With Differential Ord2 Eos ABS# 0.0 K/ul 09/22/2017 Cbc With Differential Ord2 Baso ABS# 0.0 K/ul 09/22/2017 %Hba1C Tkj695 % HbA1c 13679-4 6.9 % 09/22/2017 %Hba1C Mwo990 Gluc Ave 151 mg/dL 09/22/2017 Comp Metabolic Mch508 NA 137 mEq/L 06/17/2017 Comp Metabolic Peq030 K 3.8 mEq/L 06/17/2017 Comp Metabolic Eas168 CL 98 mEq/L 06/17/2017 Comp Metabolic Ijz489 CO2 30.0 mEq/L 06/17/2017 Comp Metabolic Wmj596 AN ION GAP 13 06/17/2017 Comp Metabolic Yjh025 GL UCOSE 157 mg/dL 06/17/2017 Comp Metabolic Hzs565 Cr eat 1.0 mg/dL 06/17/2017 Comp Metabolic Fej830 eG FR 76 ml/min/1.73m2 06/17 Comp Metabolic Tzs805 BUN 18 mg/dL 06/17/2017 Comp Metabolic Tzk703 B/ C Ratio 18.0 Ratio 06/17/2017 Comp Metabolic Nts042 CA LCIUM 9.8 mg/dL 06/17/2017 Comp Metabolic Fbh092 AL K PHOS 57 U/L 06/17/2017 Comp Metabolic Flk625 T(SGOT) 19 U/L 06/17/2017 Comp Metabolic Cyh223 AL T(SGPT) 23 U/L 06/17/2017 Comp Metabolic Itf427 BI LI T 0.6 mg/dL 06/17/2017 Comp Metabolic Fcq413 AL BUMIN 4.4 g/dL 06/17/2017 Comp Metabolic Kji844 TP RO 6.8 g/dL 06/17/2017 Comp Metabolic Tof918 GL OB 2.4 g/dL 06/17/2017 Comp Metabolic Tul429 A/ G Ratio 1.9 Ratio 06/17/2017 Comp Metabolic Mxi244 Os mo 279 mOsmo 06/17/2017 %Hba1C Shw447 % HbA1c 97798-6 7.3 % 06/17/2017 %Hba1C Qua313 Gluc Ave 163 mg/dL 06/17/2017 Cbc With Differential Ord2 WBC 10.39 [...] 31.6 pg 06/17/2017 Cbc With Differential Ord2 [place]% 11.1 % 06/17/2017 Cbc With Differential Ord2 [...] 2.35 K/ul 06/17/2017 Cbc With Differential Ord2 [place] ABS# 1.2 K/ul 06/17/2017 Cbc With Differential Ord2 Eos ABS# 0.1 K/ul 06/17/2017 Cbc With Differential Ord2 Baso ABS# 0.0 K/ul 06/17/2017 Lipid Ord30 CHOL 141 mg/dL 06/17/2017 Lipid Ord30 HDL 30.0 mg/dl 06/17/2017 Lipid Ord30 TRIG 270 mg/dL 06/17/2017 Lipid Ord30 LDL 57 mg/dL 06/17/2017 Lipid Ord30 C/HDL 4.7 Ratio 06/17/2017 Tsh Ord6 hTSH II 1.87 uIU/mL 06/17/2017 Review of Systems System Result Effective [...] diminished 06/22/2018 None Full Exam - General 1995 [...] skin Location: scalp 10/08/2017 [place] - right restoration, mid fo rehead/scalp, left posterior neck - [...] skin Location: scalp 08/27/2017 [place] - right restoration, mid fo rehead/scalp - cryotherapy to area, [...] VACC PRSV FREE I NC ANTIG CPT-4: 65747 06/24/2018 GLUC MONITOR CONT PH YS I&R CPT-4: 26836 01/27/2018 PPPS, SUBSEQ VISIT CPT- 4: G0439 01/21/2018 GLUCOSE MONITORING CONT CPT-4: 13007 01/06/2018 ADMIN INFLUENZA VIRU S VAC CPT-4: G0008 06/09/2017 FLU VACC PRSV FREE I NC ANTIG CPT-4: 82012 06/09/2017 Vital Signs Date Vital 08/05/2018 Blood Pressure 1: 132/56 Code: 8480-6 BMI: 34.5 Code: 80857-1 Heart Rate 1: 65 bpm Height: 5'8" SpO2: 95% Weight: 227 lbs 06/22/2018 Blood Pressure 1: 144/86 Code: 8480-6 BMI: 36.0 Code: 63385-0 Heart Rate 1: 74 bpm Height: 5'8" SpO2: 98% Weight: 237 lbs 05/14/2018 Blood Pressure 1: 132/72 Code: 8480-6 Height: Weight: 04/27/2018 Blood Pressure 1: 148/78 Code: 8480-6 BMI: 35.6 Code: 36774-8 Heart Rate 1: 77 bpm Height: 5'8" SpO2: 97% Weight: 234 lbs 04/03/2018 Blood Pressure 1: 156/80 Code: 8480-6 BMI: 35.4 Code: 85024-9 Heart Rate 1: 70 bpm Height: 5'8" SpO2: 97% Weight: 233 lbs 01/27/2018 BMI: 35.6 Code: 50334-2 Heart Rate 1: 86 bpm Height: 5'8" SpO2: 98% Weight: 234 lbs 01/21/2018 Heigh t: Weight: 01/06/2018 Heigh t: Weight: 12/31/2017 Blood Pressure 1: 140/86 Code: 8480-6 BMI: 34.2 Code: 85789-5 Heart Rate 1: 80 bpm Height: 5'8" SpO2: 98% Weight: 225 lbs 10/08/2017 Blood Pressure 1: 152/74 Code: 8480-6 BMI: 34.2 Code: 81555-9 Heart Rate 1: 67 bpm Height: 5'8" SpO2: 98% Weight: 225 lbs 08/27/2017 Blood Pressure 1: 144/82 Code: 8480-6 BMI: 34.2 Code: 33378-9 Heart Rate 1: 70 bpm Height: 5'8" SpO2: 98% Weight: 225 lbs 06/10/2017 Blood Pressure 1: 150/84 Code: 8480-6 BMI: 35.0 Code: 37286-0 Heart Rate 1: 67 bpm Height: 5'8" SpO2: 98% Weight: 230 lbs 05/20/2017 Blood Pressure 1: 146/76 Code: 8480-6 BMI: 35.3 Code: 09734-1 Heart Rate 1: 70 bpm Height: 5'8" [...] Encounters Encounter Performer Loca tion Codes Date 28633 EST. PATIENT, LEVEL III Diagnosis: Type 2 diabetes mellitus with hyperglycemia[ICD10: E11.65] Laney Guerrero MD, [facility] CPT-4: 02330 08/05/2018 03101 EST. PATIENT, LEVEL III Diagnosis: Type 2 diabetes mellitus with hyperglycemia[ICD10: E11.65] [facility] CPT-4: 21235 06/22/2018 16584 EST. PATIENT, LEVEL IV Diagnosis: Diplopia[ICD10: H53.2] Diagnosis: Other specified anemias[ICD10: D64.89] Laney Guerrero MD, [facility] CPT-4: 82359 05/14/2018 22126 EST. PATIENT, LEVEL III Diagnosis: Benign paroxysmal vertigo, bilateral[ICD10: H81.13] Diagnosis: Other allergic rhinitis[ICD10: J30.89] Laney Guerrero MD, [facility] CPT-4: 18567 04/27/2018 24399 EST. PATIENT, LEVEL III Diagnosis: Type 2 diabetes mellitus with hyperglycemia[ICD10: E11.65] Diagnosis: Other fatigue[ICD10: R53.83] Diagnosis: Other malaise[ICD10: R53.81] Diagnosis: Bitten or stung by nonvenomous insect and other nonvenomous arthropods, initial encounter[ICD10: W57.XXXA] Diagnosis: Cellulitis of right upper limb[ICD10: L03.113] Diagnosis: Mixed hyperlipidemia[ICD10: E78.2] Laney Guerrero MD, [facility] CPT-4: 14462 04/03/2018 ([id number]) 22814 EST. P ATIENT, LEVEL III Diagnosis: Type 2 diabetes mellitus with hyperglycemia[ICD10: E11.65] Laney Guerrero MD, [facility] CPT-4: 07654 01/27/2018 ([id number]) Miscellaneou s no charge Diagnosis: Type 2 diabetes mellitus with hyperglycemia[ICD10: E11.65] Laney Guerrero MD, [facility] CPT-4: 60490 01/13/2018 95702 EST. PATIENT, LEVEL III Diagnosis: Type 2 diabetes mellitus with hyperglycemia[ICD10: E11.65] Diagnosis: Essential (primary) hypertension[ICD10: I10] Diagnosis: Mixed hyperlipidemia[ICD10: E78.2] Laney Guerrero MD, [facility] CPT-4: 32816 12/31/2017 36979 EST. PATIENT, LEVEL III Diagnosis: Type 2 diabetes mellitus with hyperglycemia[ICD10: E11.65] Diagnosis: Essential (primary) hypertension[ICD10: I10] Diagnosis: Mixed hyperlipidemia[ICD10: E78.2] Diagnosis: Actinic keratosis[ICD10: L57.0] Laney Guerrero MD, [facility] CPT-4: 60612 10/08/2017 32901 EST. PATIENT, LEVEL III Diagnosis: Type 2 diabetes mellitus with hyperglycemia[ICD10: E11.65] Diagnosis: Essential (primary) hypertension[ICD10: I10] Diagnosis: Mixed hyperlipidemia[ICD10: E78.2] Diagnosis: Actinic keratosis[ICD10: L57.0] [facility] CPT-4: 04895 08/27/2017 [id number] EST. PATIENT, LEVEL III Diagnosis: Type 2 diabetes mellitus with hyperglycemia[ICD10: E11.65] Diagnosis: Essential (primary) hypertension[ICD10: I10] Diagnosis: Mixed hyperlipidemia[ICD10: E78.2] [facility] CPT-4: 99998 06/25/2017 ([id number]) 38025 EST. 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 06/22/2018 Appointment: Laney Luther WPtel: [facility]5 [facility] (15 min) Moderate 06/22/2018 Patient Education: Patient Medication Summary Completed 06/22/2018 Patient Education: Diabetes Completed 06/22/2018 Care Plan: Referral Order SNOMED-CT : [id number] Pending 06/22/2018 Referral: Alex [facility] Referral Initiated 06/02/2018 Appointment: Nurse [...] concerns. 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 04/03/2018 Appointment: Lane[facility] Luther [facility] [phone] [facility] (15 min) Moderate 04/03/2018 Patient Education: Patient Medication Summary Completed 04/03/2018 Appointment: Laney Luther WPtel: [phone] [facility] (30 min) Complex 03/31/2018 Patient Education: [...] control. 01/27/2018 Appointment: Lane[facility] Luther [facility] [phone] [facility] (30 min) Complex 01/27/2018 Patient Education: [...] Completed 01/21/2018 Appointment: Lane[facility] Luther [facility] [phone] [facility] (15 min) Moderate 01/13/2018 Patient Education: [...] 01/06/2018 Appointment: Laney Luther [facility] [phone] [facility] (15 min) Moderate 01/06/2018 Patient Education: [...] to medications. 12/31/2017 Appointment: Laney Luther WPtel: [facility] (30 min) [facility] 12/31/2017 Patient Education: Patient Medication [...] concerns. 10/08/2017 Appointment: Laney Luther WPtel: [phone] [facility] (30 min) Complex 10/08/2017 Patient Education: Patient Medication Summary Completed 10/08/2017 Appointment: Laney Luther WPtel: [phone] [facility] (15 min) Moderate 10/07/2017 Visit Plan: Diabetes [...] concerns. 08/27/2017 Appointment: Lane[facility] Luther [facility] [phone] [facility] (30 min) Complex 08/27/2017 Patient Education: [...] medications. 06/25/2017 Appointment: Laney Luther [facility]el: [phone] [facility] [place] (30 min) Complex 06/25/2017 Patient Education: Patient Medication Summary Completed 06/25/2017 Appointment: Debra Ramirez [facility] [phone] [phone] [place] (30 min) Complex 06/24/2017 Visit [...] to medications. 06/10/2017 Appointment: Debra Ramirez WPtel: [facility] (30 min) Complex 06/10/2017 Patient Education: [...] glucose control. 05/20/2017 Appointment: Laney Luther WPtel: [facility] New Patient 05/20/2017 Patient Education: Patient Medication Summary Completed 05/20/2017 Referral: Christian Johnson [address] Referral Initiated Referral: Kevin Cuevas Referral [...] further instructions/medication interventions. GET RECENT LABS FROM [facility] FASTING LABS NEXT WEEK UNLESS WE CALL [...]
--- OUTSIDE RECORDS SUMMARY | 2020-02-09 07:19 | XMS REPORT | CCD ---
Author Author Gunnar Luther Organization Karo Guerrero MD, [facility] Address [address] [place] [address] Phone Care Team Providers Care Bell Ringer Name Role Phone PP Unavailable CCM Unavailable Summary Purpose Interface Exchange Insurance Providers Payer name Policy type / Coverage type Covered democrat ID Effective Begin Date Effective End Date WPS Medicare Part B Medicare Part B [id number] Unknown Aetna Medicare Part B AH [id number] Unknown Cigna Medicare Part B 80 [id number] Unknown Family history Sister Diagnosis Age At [...] ed reddy 05/20/[address]: 374857550 Never smoker 05/20/[address]: 616965170 Never drinks alcohol 05/20/2017 Allergies, Adverse Reactions, Alerts Substance Reaction Codes Entered Date Inactivated Date Status Penicillin Unknown 05/20/2017 No In active Date Active PENICILLINS Unknown 05/20/2017 No In active Date Active Past Medical History Illness Codes Condition Status Onset Date Resolved Date Encounter for immuni zation ICD-9: V04.81 ICD-10: Z23 Active 06/09/2017 Unknown Type 2 diabetes stevo itus with hyperglycemia ICD-9: 250.02 ICD-10: E11.65 Active 05/20/2017 Unknown Anemia, unspecified ICD- 9: 285.9 ICD-10: [...] Condition Codes Effectiv e Dates Condition Status Encounter for immuni zation ICD-9: V04.81 ICD-10: Z23 06/09/2017 Active Type 2 diabetes stevo itus with hyperglycemia ICD-9: 250.02 ICD-10: E11.65 05/20/2017 Active Anemia, unspecified ICD- 9: 285.9 ICD-10: [...] 750 mg tablet,extended release 24 hr RxNorm: 986138 2 TABLET(S) PO DAILY 07/13/2018 11/09/2018 Ac tive Tradjenta 5 mg tablet RxNorm: 3219579 TAKE 1 TABLET BY MOUTH DAILY 07/02/2018 11/28/2018 Ac tive One Touch Test strips RxNorm: 1 Miscellaneous BID 06/29/2018 07/28/2018 Inactive Zyrtec 10 mg tablet RxNorm: 5282269 1 Tablet(s) PO daily 04/27/2018 05/26/2018 Inactive doxycycline hyclate 100 mg capsule RxNorm: 4292255 1 Capsule(s) PO BID 04/03/2018 04/12/2018 In active meclizine 25 mg tablet RxNorm: 142803 1 Tablet(s) PO TID as needed Dizziness 04/03/2018 04/07/2018 In active metformin ER 750 mg tablet,extended release 24 hr RxNorm: 542404 2 TABLET(S) PO DAILY 02/03/2018 06/02/2018 Inactive glimepiride 2 mg tablet RxNorm: 787385 TAKE 1 TABLET BY MOUTH TWICE DAILY FOR D IABETES 01/13/2018 04/07/2019 Active glimepiride 2 mg tablet RxNorm: 497062 TAKE 1 TABLET BY MOUTH TWICE DAILY FOR D IABETES 01/11/2018 01/05/2019 Active diltiazem CD 360 mg capsule,extended release 24 hr RxNorm: 813107 1 CAPSULE(S) PO QHS 01/02/2018 12/27/2018 Ac tive atenolol 50 mg-chlor thalidone 25 mg tablet RxNorm: 312149 1 Tablet(s) PO daily 12/18/2017 12/12/2018 Ac tive PLEASE SEND REFILL REQUESTS ELECTRONICAL LY Tradjenta 5 mg tablet RxNorm: 0030956 TAKE 1 TABLET BY MOUTH DAILY 12/15/2017 05/13/2018 In active metformin ER 750 mg tablet,extended release 24 hr RxNorm: 854316 2 TABLET(S) PO DAILY 11/05/2017 02/02/2018 Inactive metformin ER 750 mg tablet,extended release 24 hr RxNorm: 655207 2 TABLET(S) PO DAILY 11/03/2017 02/02/2018 Inactive atorvastatin 20 mg t ablet RxNorm: 862921 TAKE 1 TABLET BY MOUT H EVERY NIGHT AT BEDTIME FOR CHOLESTEROL 08/28/2017 08/22/2018 Active Zithromax Z-Maury 250 mg tablet RxNorm: 826564 1 Tablet(s) PO UD 08/15/2017 04/13/2018 Inactive Tamiflu 75 mg capsule RxNorm: 432560 1 Capsule(s) PO BID 08/15/2017 08/14/2017 Inactive Tamiflu 75 mg capsule RxNorm: 559787 1 Capsule(s) PO BID 08/15/2017 08/19/2017 Inactive Tradjenta 5 mg tablet RxNorm: 2301892 TAKE 1 TABLET BY MOUTH DAILY 08/12/2017 12/09/2017 In active metformin ER 750 mg tablet,extended release 24 hr RxNorm: 799607 TAKE 2 TABLET BY MOUT H ONCE A DAY DIRECTED 08/08/2017 No Stop Date Active SAVINGS FOR NON-COVERED MEDICATIONS Claims: BIN: [id number], PCN: [id number], GROUP: [id number], Patient ID: [id number] Phone; Questions: [facility] [phone] metformin ER 750 mg tablet,extended release 24 hr RxNorm: 464144 2 Tablet(s) PO daily 08/07/2017 08/06/2017 Inactive metformin ER 750 mg tablet,extended release 24 hr RxNorm: 578947 2 Tablet(s) PO daily 08/07/2017 11/02/2017 Inactive glimepiride 2 mg tablet RxNorm: 712540 TAKE 1 TABLET BY MOUTH TWICE DAILY FOR D IABETES 07/18/2017 01/10/2018 Inactive diltiazem CD 360 mg capsule,extended release 24 hr RxNorm: 801648 1 Capsule(s) PO QHS 07/03/2017 12/29/2017 Inactive One Touch Test strips RxNorm: 1 Miscellaneous daily 05/30/2017 06/28/2017 Inactive One Touch Test strips RxNorm: 1 Miscellaneous daily 05/30/2017 05/29/2017 Inactive iron gluconate-B cmp lx-potassium iodide-minerals oral RxNorm: 72222 oral No Start Date Active Super B Complex 100 tablet RxNorm: 1 Tablet(s) PO daily No Start Date Active Glucosamine Chondroi tin Maximum Strength oral RxNorm: 4845 oral No Start Date Active garlic 1,000 mg capsule RxNorm: 619252 1 Capsule(s) PO BID No Start Date Active vitamin E (dl, aceta te) 400 unit capsule RxNorm: 344088 1 Capsule(s) PO daily No Start Date Active beta carotene 25,000 unit tablet RxNorm: 930772 1 Tablet(s) PO daily No Start Date Active rutin 500 mg tablet RxNorm: 932037 1/2 Tablet(s) PO daily No Start Date Active Calcium 600 + [place] ls oral RxNorm: 401657 oral No S tart Date Active Vitamin D3 1,000 uni t tablet RxNorm: 575677 1 Tablet(s) PO daily No Start Date Active Vitamin C 500 mg tablet RxNorm: 264347 1 Tablet(s) PO daily No Start Date Active acidophilus 25 susanne on cell-pectin, citrus 100 mg tablet RxNorm: 623927 1 Tablet(s) PO BID No Start Date Active Zinc and C oral RxNorm: oral No Start Date Active aspirin 81 mg chewab le tablet RxNorm: 003725 1 Tablet(s) PO QPM No Start Date Active Zegerid OTC 20 mg-1. 1 gram capsule RxNorm: 847180 1 Capsule(s) PO daily No Start Date Active magnesium 250 mg tablet RxNorm: 1 Tablet(s) PO daily No Start Date Active flaxseed oil 1,000 m g capsule RxNorm: 383445 1 Capsule(s) PO BID No Start Date Active milk thistle 175 mg tablet RxNorm: 572040 1 Tablet(s) PO daily No Start Date Active metformin ER 750 mg tablet,extended release 24 hr RxNorm: 818661 2 Tablet(s) PO daily No Start Date 08/06/2017 Inactive atorvastatin 20 mg t ablet RxNorm: 686527 1 Tablet(s) PO daily No Start Date 08/27/2017 Inactive Tradjenta 5 mg tablet RxNorm: 5977448 1 Tablet(s) PO daily No Start Date 08/11/2017 Inactive diltiazem ER 300 mg tablet,extended release 24 hr RxNorm: 490048 1 Tablet(s) PO daily No Start Date 05/18/2017 Inactive glimepiride 2 mg tablet RxNorm: 678664 1 Tablet(s) PO BID No Start Date 07/17/2017 Inactive Zithromax Z-Maury 250 mg tablet RxNorm: 280159 1 Tablet(s) PO UD No Start Date 08/14/2017 Inactive atenolol 50 mg-chlor thalidone 25 mg tablet RxNorm: 736782 1 Tablet(s) PO daily No Start Date 12/17/2017 Inactive diltiazem CD 360 mg capsule,extended release 24 hr RxNorm: 630248 1 Capsule(s) PO QHS No Start Date 07/02/2017 Inactive Medication Administered No Medication Administered data Immunizations Vaccine Codes Date Status Influenza CVX: 141 06/24 completed Influenza CVX: 141 06/09 completed Assessments Condition Codes Effectiv e Dates Encounter for immunization ICD-10: Z 23 ICD-9: V04.81 06/24/2018 Type 2 diabetes mellitus with hyperglycemia ICD-10: E11.65 ICD-9: 250.02 06/22/2018 Other specified anemias ICD-10: D64. 89 ICD-9: [...] Visit Reason For Visit Effective Dates Notes vaccination against influenza 06/24/2018 diabetes mellitus 06/22/2018 [...] 21.6 % 08/03/2018 Cbc With Differential Ord2 [place]% 11.9 % 08/03/2018 Cbc With Differential Ord2 [...] 1.62 K/ul 08/03/2018 Cbc With Differential Ord2 [place] ABS# 0.9 K/ul 08/03/2018 Cbc With Differential Ord2 Eos ABS# 0.1 K/ul 08/03/2018 Cbc With Differential Ord2 Baso ABS# 0.0 K/ul 08/03/2018 Cbc With Differential Ord2 WBC 7.96 K/ul 05/14/2018 Cbc With Differential Ord2 RBC 4.43 M/ul 05/14/2018 Cbc With Differential Ord2 HGB 13.8 g/dl 05/14/2018 Cbc With Differential Ord2 Neut% 63.8 % 05/14/2018 Cbc With Differential Ord2 HCT 40.9 % 05/14/2018 Cbc With Differential Ord2 Lymph% 22.7 % 05/14/2018 Cbc With Differential Ord2 MCV 92.3 fl 05/14/2018 Cbc With Differential Ord2 [place]% 12.2 % 05/14/2018 Cbc With Differential Ord2 [...] 1.81 K/ul 05/14/2018 Cbc With Differential Ord2 [place] ABS# 1.0 K/ul 05/14/2018 Cbc With Differential Ord2 Eos ABS# 0.1 K/ul 05/14/2018 Cbc With Differential Ord2 Baso ABS# 0.0 K/ul 05/14/2018 Ehrlichia Chaffeensis Antibody Igm 397035 EHRLICHIA CHAFFEENSIS IGM < 1:16 04/09/2018 Ehrlichia Chaffeensis Antibody Igg 013802 EHRLICHIA CHAFFEENSIS IGG 1:64 04/09/2018 [place] Spotted Fever Igg/Igm 06475 3 LOTUS MT SPOTTED FEVER IGM EIA . 04/09/2018 [place] Spotted Fever Igg/Igm 77521 3 RMSF, IGM 0.36 index 04/09/2018 [place] Spotted Fever Igg/Igm 19955 3 LOTUS MT SPOTTED FEVER IGG EIA FLEX . 04/09/2018 [place] Spotted Fever Igg/Igm 23568 3 RMSF, IGG SCREEN-FLEX Negative 04/09/2018 Lymes Disease Total Antibodies With Western Blot Refle x [id number] B. BURGDORFERI, IGG/IGM 0.31 04/07/2018 Lymes Disease Total Antibodies With Western Blot Refle x [id number] INTERPRETATION 04/07/2018 %Hba1C Foy235 % HbA1c 69351-9 7.2 % 03/31/2018 %Hba1C Ayl273 Gluc Ave 160 mg/dL 03/31/2018 Lipid Ord30 [...] 31.3 pg 12/22/2017 Cbc With Differential Ord2 [place]% 11.5 % 12/22/2017 Cbc With Differential Ord2 [...] 2.16 K/ul 12/22/2017 Cbc With Differential Ord2 [place] ABS# 1.1 K/ul 12/22/2017 Cbc With Differential Ord2 Eos ABS# 0.1 K/ul 12/22/2017 Cbc With Differential Ord2 Baso ABS# 0.0 K/ul 12/22/2017 Comp Metabolic Pvn872 NA 141 mEq/L 12/22/2017 Comp Metabolic Kms436 K 3.9 mEq/L 12/22/2017 Comp Metabolic Qhq658 CL 99 mEq/L 12/22/2017 Comp Metabolic Xeq039 CO2 32.0 mEq/L 12/22/2017 Comp Metabolic Irz037 AN ION GAP 14 12/22/2017 Comp Metabolic Omi888 GL UCOSE 152 mg/dL 12/22/2017 Comp Metabolic Atd336 Cr eat 1.0 mg/dL 12/22/2017 Comp Metabolic Isl851 eG FR 78 ml/min/1.73m2 12/22 Comp Metabolic Hhm370 BUN 27 mg/dL 12/22/2017 Comp Metabolic Cjz939 B/ C Ratio 27.8 Ratio 12/22/2017 Comp Metabolic Vvo818 CA LCIUM 9.7 mg/dL 12/22/2017 Comp Metabolic Zrr620 AL K PHOS 56 U/L 12/22/2017 Comp Metabolic Ghp774 T(SGOT) 18 U/L 12/22/2017 Comp Metabolic Jhx557 AL T(SGPT) 20 U/L 12/22/2017 Comp Metabolic Kxs608 BI LI T 0.4 mg/dL 12/22/2017 Comp Metabolic Fzr428 AL BUMIN 4.2 g/dL 12/22/2017 Comp Metabolic Djo141 TP RO 6.4 g/dL 12/22/2017 Comp Metabolic Zvd831 GL OB 2.2 g/dL 12/22/2017 Comp Metabolic Eoc529 A/ G Ratio 1.9 Ratio 12/22/2017 Comp Metabolic Mcz562 Os mo 289 mOsmo 12/22/2017 %Hba1C Nuy996 % HbA1c 91193-3 7.1 % 12/22/2017 %Hba1C Evy409 Gluc Ave 157 mg/dL 12/22/2017 Cbc With [...] 31.5 pg 09/22/2017 Cbc With Differential Ord2 [place]% 8.4 % 09/22/2017 Cbc With Differential Ord2 [...] 1.83 K/ul 09/22/2017 Cbc With Differential Ord2 [place] ABS# 0.9 K/ul 09/22/2017 Cbc With Differential Ord2 Eos ABS# 0.0 K/ul 09/22/2017 Cbc With Differential Ord2 Baso ABS# 0.0 K/ul 09/22/2017 %Hba1C Quq220 % HbA1c 67892-3 6.9 % 09/22/2017 %Hba1C Ssb882 Gluc Ave 151 mg/dL 09/22/2017 Tsh Ord6 [...] 31.6 pg 06/17/2017 Cbc With Differential Ord2 [place]% 11.1 % 06/17/2017 Cbc With Differential Ord2 [...] 2.35 K/ul 06/17/2017 Cbc With Differential Ord2 [place] ABS# 1.2 K/ul 06/17/2017 Cbc With Differential Ord2 Eos ABS# 0.1 K/ul 06/17/2017 Cbc With Differential Ord2 Baso ABS# 0.0 K/ul 06/17/2017 %Hba1C Ebr634 % HbA1c 73208-4 7.3 % 06/17/2017 %Hba1C Hpa187 Gluc Ave 163 mg/dL 06/17/2017 Comp Metabolic Gyn739 NA 137 mEq/L 06/17/2017 Comp Metabolic Zem916 K 3.8 mEq/L 06/17/2017 Comp Metabolic Spp464 CL 98 mEq/L 06/17/2017 Comp Metabolic Fct795 CO2 30.0 mEq/L 06/17/2017 Comp Metabolic Ejn225 AN ION GAP 13 06/17/2017 Comp Metabolic Hza089 GL UCOSE 157 mg/dL 06/17/2017 Comp Metabolic Rtj497 Cr eat 1.0 mg/dL 06/17/2017 Comp Metabolic Tin642 eG FR 76 ml/min/1.73m2 06/17 Comp Metabolic Otb040 BUN 18 mg/dL 06/17/2017 Comp Metabolic Tiw409 B/ C Ratio 18.0 Ratio 06/17/2017 Comp Metabolic Nyj795 CA LCIUM 9.8 mg/dL 06/17/2017 Comp Metabolic Ido426 AL K PHOS 57 U/L 06/17/2017 Comp Metabolic Lgw307 T(SGOT) 19 U/L 06/17/2017 Comp Metabolic Pir424 AL T(SGPT) 23 U/L 06/17/2017 Comp Metabolic Llw097 BI LI T 0.6 mg/dL 06/17/2017 Comp Metabolic Ywg370 AL BUMIN 4.4 g/dL 06/17/2017 Comp Metabolic Cec388 TP RO 6.8 g/dL 06/17/2017 Comp Metabolic Xfm451 GL OB 2.4 g/dL 06/17/2017 Comp Metabolic Vny353 A/ G Ratio 1.9 Ratio 06/17/2017 Comp Metabolic Pki295 Os mo 279 mOsmo 06/17/2017 Review of Systems System Result Effective Dates Constitutional No recent illness 06/22/2018 Constitutional No [...] General 1995 Eyes conjunctiva/eyelids Overall: conjunctiva clear 01/27/2018 None [...] skin Location: scalp 10/08/2017 [place] - right religious, mid fo rehead/scalp, left posterior neck - [...] skin Location: scalp 08/27/2017 [place] - right religious, mid fo rehead/scalp - cryotherapy to area, [...] VACC PRSV FREE I NC ANTIG CPT-4: 83250 06/24/2018 GLUC MONITOR CONT PH YS I&R CPT-4: 09482 01/27/2018 PPPS, SUBSEQ VISIT CPT- 4: G0439 01/21/2018 GLUCOSE MONITORING CONT CPT-4: 61689 01/06/2018 ADMIN INFLUENZA VIRU S VAC CPT-4: G0008 06/09/2017 FLU VACC PRSV FREE I NC ANTIG CPT-4: 88700 06/09/2017 Vital Signs Date Vital 06/22/2018 Blood Pressure 1: 144/86 Code: 8480-6 BMI: 36.0 Code: 86550-3 Heart Rate 1: 74 bpm Height: 5'8" SpO2: 98% Weight: 237 lbs 05/14/2018 Blood Pressure 1: 132/72 Code: 8480-6 Height: Weight: 04/27/2018 Blood Pressure 1: 148/78 Code: 8480-6 BMI: 35.6 Code: 04021-2 Heart Rate 1: 77 bpm Height: 5'8" SpO2: 97% Weight: 234 lbs 04/03/2018 Blood Pressure 1: 156/80 Code: 8480-6 BMI: 35.4 Code: 96184-9 Heart Rate 1: 70 bpm Height: 5'8" SpO2: 97% Weight: 233 lbs 01/27/2018 BMI: 35.6 Code: 61181-5 Heart Rate 1: 86 bpm Height: 5'8" SpO2: 98% Weight: 234 lbs 01/21/2018 Heigh t: Weight: 01/06/2018 Heigh t: Weight: 12/31/2017 Blood Pressure 1: 140/86 Code: 8480-6 BMI: 34.2 Code: 71034-8 Heart Rate 1: 80 bpm Height: 5'8" SpO2: 98% Weight: 225 lbs 10/08/2017 Blood Pressure 1: 152/74 Code: 8480-6 BMI: 34.2 Code: 04474-3 Heart Rate 1: 67 bpm Height: 5'8" SpO2: 98% Weight: 225 lbs 08/27/2017 Blood Pressure 1: 144/82 Code: 8480-6 BMI: 34.2 Code: 11644-9 Heart Rate 1: 70 bpm Height: 5'8" SpO2: 98% Weight: 225 lbs 06/10/2017 Blood Pressure 1: 150/84 Code: 8480-6 BMI: 35.0 Code: 77415-4 Heart Rate 1: 67 bpm Height: 5'8" SpO2: 98% Weight: 230 lbs 05/20/2017 Blood Pressure 1: 146/76 Code: 8480-6 BMI: 35.3 Code: 15902-0 Heart Rate 1: 70 bpm Height: 5'8" SpO2: 98% Weight: 232 lbs Functional Status No Functional Status data History of Present Illness Symptom Name Status Resu lt Effective Date Notes vaccination against influenza Location deltoid-Lt 06/24/2018 None [...] Encounters Encounter Performer Loca tion Codes Date 16215 EST. PATIENT, LEVEL III Diagnosis: Type 2 diabetes mellitus with hyperglycemia[ICD10: E11.65] Laney Guerrero MD, [facility] CPT-4: 94365 06/22/2018 46941 EST. PATIENT, LEVEL IV Diagnosis: Diplopia[ICD10: H53.2] Diagnosis: Other specified anemias[ICD10: D64.89] Laney Guerrero MD, [facility] CPT-4: 35725 05/14/2018 11752 EST. PATIENT, LEVEL III Diagnosis: Benign paroxysmal vertigo, bilateral[ICD10: H81.13] Diagnosis: Other allergic rhinitis[ICD10: J30.89] Laney Guerrero MD, [facility] CPT-4: 26652 04/27/2018 04561 EST. PATIENT, LEVEL III Diagnosis: Type 2 diabetes mellitus with hyperglycemia[ICD10: E11.65] Diagnosis: Other fatigue[ICD10: R53.83] Diagnosis: Other malaise[ICD10: R53.81] Diagnosis: Bitten or stung by nonvenomous insect and other nonvenomous arthropods, initial encounter[ICD10: W57.XXXA] Diagnosis: Cellulitis of right upper limb[ICD10: L03.113] Diagnosis: Mixed hyperlipidemia[ICD10: E78.2] Laney Guerrero MD, [facility] CPT-4: 02095 04/03/2018 ([id number]) 62235 EST. P ATIENT, LEVEL III Diagnosis: Type 2 diabetes mellitus with hyperglycemia[ICD10: E11.65] Laney Guerrero MD, [facility] CPT-4: 76135 01/27/2018 ([id number]) Miscellaneou s no charge Diagnosis: Type 2 diabetes mellitus with hyperglycemia[ICD10: E11.65] Laney Guerrero MD, [facility] CPT-4: 72001 01/13/2018 27013 EST. PATIENT, LEVEL III Diagnosis: Type 2 diabetes mellitus with hyperglycemia[ICD10: E11.65] Diagnosis: Essential (primary) hypertension[ICD10: I10] Diagnosis: Mixed hyperlipidemia[ICD10: E78.2] Laney Guerrero MD, [facility] CPT-4: 49558 12/31/2017 10155 EST. PATIENT, LEVEL III Diagnosis: Type 2 diabetes mellitus with hyperglycemia[ICD10: E11.65] Diagnosis: Essential (primary) hypertension[ICD10: I10] Diagnosis: Mixed hyperlipidemia[ICD10: E78.2] Diagnosis: Actinic keratosis[ICD10: L57.0] Laney Guerrero MD, [facility] CPT-4: 40067 10/08/2017 91977 EST. PATIENT, LEVEL III Diagnosis: Type 2 diabetes mellitus with hyperglycemia[ICD10: E11.65] Diagnosis: Essential (primary) hypertension[ICD10: I10] Diagnosis: Mixed hyperlipidemia[ICD10: E78.2] Diagnosis: Actinic keratosis[ICD10: L57.0] Laney Guerrero MD, [facility] CPT-4: 15102 08/27/2017 70357 EST. PATIENT, LEVEL III Diagnosis: Type 2 diabetes mellitus with hyperglycemia[ICD10: E11.65] Diagnosis: Essential (primary) hypertension[ICD10: I10] Diagnosis: Mixed hyperlipidemia[ICD10: E78.2] Laney Guerrero MD, [facility] CPT-4: 74154 06/25/2017 ([id number]) 38592 EST. 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 06/22/2018 [facility]ment: [phone] [facility] ([facility]) Moderate 06/22/2018 Patient Education: Patient Medication Summary Completed 06/22/2018 Patient Education: Diabetes Completed 06/22/2018 Care Plan: Referral Order SNOMED-CT : [id number] Pending 06/22/2018 [facility] Ref[facility] Initiated 06/02/2018 Appointment: Nurse [...] or concerns. 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 04/03/2018 Appointment: Laney Luther WPtel: [phone] [facility] [place] (15 min) Moderate 04/03/2018 Patient Education: Patient Medication Summary Completed 04/03/2018 Appointment: Laney Luther WPtel: [phone] [facility] (30 min) Complex 03/31/2018 Patient Education: Patient [...] 01/27/2018 Appointment: Lane[facility] Luther [facility]Ptel[facility] [phone] [facility] [place] (30 min) Complex 01/27/2018 Patient Education: [...] Summary Completed 01/21/2018 Appointment: Laney Luther WPtel: [address] [place], [place] [address] (15 min) Moderate 01/13/2018 Patient Education: Patient [...] 01/06/2018 Appointment: Lane[facility] Luther [facility] [phone] [facility] (15 min) Moderate 01/06/2018 Patient Education: Patient Medication Summary Completed 01/06/2018 Visit Plan: Hypertension - well yeimi choeed - continue with current medications, continue with [...] to medications. 12/31/2017 Appointment: Laney Luther [facility]Ptel[facility] [phone] [facility] [place] (30 min) Complex 12/31/2017 Patient Education: [...] other acute concerns. 10/08/2017 Appointment: Laney Luthertel: [facility] (30 min) Complex 10/08/2017 Patient Education: Patient Medication Summary Completed 10/08/2017 Appointment: Laney Luthertel: [facility] (15 min) Moderate 10/07/2017 Visit Plan: [...] concerns. 08/27/2017 Appointment: Laney Luther WPtel: [phone] [facility] (30 min) Complex 08/27/2017 Patient Education: Patient [...] to medications. 06/25/2017 Appointment: Lane[facility] Luther [facility]el[facility] [phone] [facility] (30 min) Complex 06/25/2017 Patient Education: Patient Medication Summary Completed 06/25/2017 Appointment: [facility] [phone] [facility] (30 min) Complex 06/24/2017 Visit Plan: [...] medications. 06/10/2017 Appointment: De[facility] Ramirez [facility]Ptel[facility] [phone] [facility] (30 min) Complex 06/10/2017 Patient Education: Patient Medication Summary Completed 06/10/2017 Patient Education: Obesity Completed 06/10/2017 Appointment: Andrey 06/09/2017 Patient Education: Patient Medication Summary Completed [...] control. 05/20/2017 Appointment: Laney Luther [facility]Ptel[facility] [phone] [facility] New Patient 05/20/2017 Patient Education: Patient Medication Summary Completed 05/20/2017 [facility] Referral Initiated Referral: Kevin Cuevas Referral [...] further instructions/medication interventions. GET RECENT LABS FROM [facility] FASTING LABS NEXT WEEK UNLESS WE [...]
--- OUTSIDE RECORDS SUMMARY | 2020-02-09 07:20 | XMS REPORT | CCD ---
Author Author Gunnar Luther Organization Karo Guerrero MD, [facility] Address [address] [place] [address] Phone Care Team Providers Care Band Cutter Name Role Phone PP Unavailable CCM Unavailable Summary Purpose Interface Exchange Insurance Providers Payer name Policy type / Coverage type Covered libertarian ID Effective Begin Date Effective End Date WPS Medicare Part B Medicare Part B [id number] Unknown Aetna Medicare Part B AH [id number] Unknown Cigna Medicare Part B 80 [id number] Unknown Family history Sister Diagnosis Age At [...] ed reddy 05/20/[address]: 988446769 Never smoker 05/20/[address]: 609817152 Never drinks alcohol 05/20/2017 Allergies, Adverse Reactions, [...] 750 mg tablet,extended release 24 hr RxNorm: 164478 2 TABLET(S) PO DAILY 07/13/2018 11/09/2018 Ac tive Tradjenta 5 mg tablet RxNorm: 1546127 TAKE 1 TABLET BY MOUTH DAILY 07/02/2018 11/28/2018 Ac tive One Touch Test strips RxNorm: 1 Miscellaneous BID 06/29/2018 07/28/2018 Active Zyrtec 10 mg tablet RxNorm: 1756858 1 Tablet(s) PO daily 04/27/2018 05/26/2018 Inactive doxycycline hyclate 100 mg capsule RxNorm: 7360101 1 Capsule(s) PO BID 04/03/2018 04/12/2018 In active meclizine 25 mg tablet RxNorm: 135275 1 Tablet(s) PO TID as needed Dizziness 04/03/2018 04/07/2018 In active metformin ER 750 mg tablet,extended release 24 hr RxNorm: 819173 2 TABLET(S) PO DAILY 02/03/2018 06/02/2018 Inactive glimepiride 2 mg tablet RxNorm: 782051 TAKE 1 TABLET BY MOUTH TWICE DAILY FOR D IABETES 01/13/2018 04/07/2019 Active glimepiride 2 mg tablet RxNorm: 731816 TAKE 1 TABLET BY MOUTH TWICE DAILY FOR D IABETES 01/11/2018 01/05/2019 Active diltiazem CD 360 mg capsule,extended release 24 hr RxNorm: 078188 1 CAPSULE(S) PO QHS 01/02/2018 12/27/2018 Ac tive atenolol 50 mg-chlor thalidone 25 mg tablet RxNorm: 328119 1 Tablet(s) PO daily 12/18/2017 12/12/2018 Ac tive PLEASE SEND REFILL REQUESTS ELECTRONICAL LY Tradjenta 5 mg tablet RxNorm: 4462628 TAKE 1 TABLET BY MOUTH DAILY 12/15/2017 05/13/2018 In active metformin ER 750 mg tablet,extended release 24 hr RxNorm: 480852 2 TABLET(S) PO DAILY 11/05/2017 02/02/2018 Inactive metformin ER 750 mg tablet,extended release 24 hr RxNorm: 558181 2 TABLET(S) PO DAILY 11/03/2017 02/02/2018 Inactive atorvastatin 20 mg t ablet RxNorm: 570084 TAKE 1 TABLET BY MOUT H EVERY NIGHT AT BEDTIME FOR CHOLESTEROL 08/28/2017 08/22/2018 Active Zithromax Z-Maury 250 mg tablet RxNorm: 826983 1 Tablet(s) PO UD 08/15/2017 04/13/2018 Inactive Tamiflu 75 mg capsule RxNorm: 654176 1 Capsule(s) PO BID 08/15/2017 08/14/2017 Inactive Tamiflu 75 mg capsule RxNorm: 971878 1 Capsule(s) PO BID 08/15/2017 08/19/2017 Inactive Tradjenta 5 mg tablet RxNorm: 0904813 TAKE 1 TABLET BY MOUTH DAILY 08/12/2017 12/09/2017 In active metformin ER 750 mg tablet,extended release 24 hr RxNorm: 079907 TAKE 2 TABLET BY MOUT H ONCE A DAY DIRECTED 08/08/2017 No Stop Date Active SAVINGS FOR NON-COVERED MEDICATIONS Claims: BIN: [id number], PCN: [id number], GROUP: [id number], Patient ID: [id number] Phone; Questions: [facility] [phone] metformin ER 750 mg tablet,extended release 24 hr RxNorm: 591800 2 Tablet(s) PO daily 08/07/2017 08/06/2017 Inactive metformin ER 750 mg tablet,extended release 24 hr RxNorm: 473475 2 Tablet(s) PO daily 08/07/2017 11/02/2017 Inactive glimepiride 2 mg tablet RxNorm: 068722 TAKE 1 TABLET BY MOUTH TWICE DAILY FOR D IABETES 07/18/2017 01/10/2018 Inactive diltiazem CD 360 mg capsule,extended release 24 hr RxNorm: 571319 1 Capsule(s) PO QHS 07/03/2017 12/29/2017 Inactive One Touch Test strips RxNorm: 1 Miscellaneous daily 05/30/2017 06/28/2017 Inactive One Touch Test strips RxNorm: 1 Miscellaneous daily 05/30/2017 05/29/2017 Inactive iron gluconate-B cmp lx-potassium iodide-minerals oral RxNorm: 61349 oral No Start Date Active Super B Complex 100 tablet RxNorm: 1 Tablet(s) PO daily No Start Date Active Glucosamine Chondroi tin Maximum Strength oral RxNorm: 4845 oral No Start Date Active garlic 1,000 mg capsule RxNorm: 436239 1 Capsule(s) PO BID No Start Date Active vitamin E (dl, aceta te) 400 unit capsule RxNorm: 556283 1 Capsule(s) PO daily No Start Date Active beta carotene 25,000 unit tablet RxNorm: 778101 1 Tablet(s) PO daily No Start Date Active rutin 500 mg tablet RxNorm: 918453 1/2 Tablet(s) PO daily No Start Date Active Calcium 600 + Min[place] ls oral RxNorm: 313787 oral No S tart Date Active Vitamin D3 1,000 uni t tablet RxNorm: 067894 1 Tablet(s) PO daily No Start Date Active Vitamin C 500 mg tablet RxNorm: 135753 1 Tablet(s) PO daily No Start Date Active acidophilus 25 susanne on cell-pectin, citrus 100 mg tablet RxNorm: 800800 1 Tablet(s) PO BID No Start Date Active Zinc and C oral RxNorm: oral No Start Date Active aspirin 81 mg chewab le tablet RxNorm: 020549 1 Tablet(s) PO QPM No Start Date Active Zegerid OTC 20 mg-1. 1 gram capsule RxNorm: 344013 1 Capsule(s) PO daily No Start Date Active magnesium 250 mg tablet RxNorm: 1 Tablet(s) PO daily No Start Date Active flaxseed oil 1,000 m g capsule RxNorm: 877856 1 Capsule(s) PO BID No Start Date Active milk thistle 175 mg tablet RxNorm: 386769 1 Tablet(s) PO daily No Start Date Active metformin ER 750 mg tablet,extended release 24 hr RxNorm: 493747 2 Tablet(s) PO daily No Start Date 08/06/2017 Inactive atorvastatin 20 mg t ablet RxNorm: 096589 1 Tablet(s) PO daily No Start Date 08/27/2017 Inactive Tradjenta 5 mg tablet RxNorm: 8708770 1 Tablet(s) PO daily No Start Date 08/11/2017 Inactive diltiazem ER 300 mg tablet,extended release 24 hr RxNorm: 304649 1 Tablet(s) PO daily No Start Date 05/18/2017 Inactive glimepiride 2 mg tablet RxNorm: 324091 1 Tablet(s) PO BID No Start Date 07/17/2017 Inactive Zithromax Z-Maury 250 mg tablet RxNorm: 726476 1 Tablet(s) PO UD No Start Date 08/14/2017 Inactive atenolol 50 mg-chlor thalidone 25 mg tablet RxNorm: 525995 1 Tablet(s) PO daily No Start Date 12/17/2017 Inactive diltiazem CD 360 mg capsule,extended release 24 hr RxNorm: 266602 1 Capsule(s) PO QHS No Start Date [...] Result Date Cbc With Differential Ord2 WBC 7.96 K/ul 05/14/2018 Cbc With Differential Ord2 RBC 4.43 M/ul 05/14/2018 Cbc With Differential Ord2 HGB 13.8 g/dl 05/14/2018 Cbc With Differential Ord2 Neut% 63.8 % 05/14/2018 Cbc With Differential Ord2 HCT 40.9 % 05/14/2018 Cbc With Differential Ord2 MCV 92.3 fl 05/14/2018 Cbc With Differential Ord2 Lymph% 22.7 % 05/14/2018 Cbc With Differential Ord2 [place]% 12.2 % 05/14/2018 Cbc With Differential Ord2 MCH 31.2 pg 05/14/2018 Cbc With Differential Ord2 MCHC 33.7 pg 05/14/2018 Cbc With Differential Ord2 Eos% 1.0 % 05/14/2018 Cbc With Differential Ord2 Baso% 0.3 % 05/14/2018 Cbc With Differential Ord2 PLT 266 K/ul 05/14/2018 Cbc With Differential Ord2 RDW 13.2 % 05/14/2018 Cbc With Differential Ord2 Neut ABS# 5.08 K/ul 05/14/2018 Cbc With Differential Ord2 Lymph ABS# 1.81 K/ul 05/14/2018 Cbc With Differential Ord2 [place] ABS# 1.0 K/ul 05/14/2018 Cbc With Differential Ord2 Eos ABS# 0.1 K/ul 05/14/2018 Cbc With Differential Ord2 Baso ABS# 0.0 K/ul 05/14/2018 Ehrlichia Chaffeensis Antibody Igm [id number] EHRLICHIA CHAFFEENSIS IGM < 1:16 04/09/2018 Ehrlichia Chaffeensis Antibody Igg 549138 EHRLICHIA CHAFFEENSIS IGG 1:64 04/09/2018 [place] Spotted Fever Igg/Igm 39917 3 LOTUS MT SPOTTED FEVER IGM EIA . 04/09/2018 [place] Spotted Fever Igg/Igm 54594 3 RMSF, IGM 0.36 index 04/09/2018 [place] Spotted Fever Igg/Igm 53086 3 LOTUS MT SPOTTED FEVER IGG EIA FLEX . 04/09/2018 [place] Spotted Fever Igg/Igm 69869 3 RMSF, IGG SCREEN-FLEX Negative 04/09/2018 Lymes Disease Total Antibodies With Western Blot Refle x [id number] B. BURGDORFERI, IGG/IGM 0.31 04/07/2018 Lymes Disease Total Antibodies With Western Blot Refle x [id number] INTERPRETATION 04/07/2018 %Hba1C Bvo690 % HbA1c 38586-1 7.2 % 03/31/2018 %Hba1C Imx319 Gluc Ave 160 mg/dL 03/31/2018 Lipid Ord30 [...] 22.4 % 12/22/2017 Cbc With Differential Ord2 [place]% 11.5 % 12/22/2017 Cbc With Differential Ord2 MCH 31.3 pg 12/22/2017 Cbc With Differential Ord2 Eos% 0.9 % 12/22/2017 Cbc With Differential Ord2 MCHC 33.9 pg 12/22/2017 Cbc With Differential Ord2 PLT 223 K/ul 12/22/2017 Cbc With Differential Ord2 Baso% 0.2 % 12/22/2017 Cbc With Differential Ord2 RDW 13.4 % 12/22/2017 Cbc With Differential Ord2 Neut ABS# 6.25 K/ul 12/22/2017 Cbc With Differential Ord2 Lymph ABS# 2.16 K/ul 12/22/2017 Cbc With Differential Ord2 [place] ABS# 1.1 K/ul 12/22/2017 Cbc With Differential Ord2 Eos ABS# 0.1 K/ul 12/22/2017 Cbc With Differential Ord2 Baso ABS# 0.0 K/ul 12/22/2017 Comp Metabolic Ein416 NA 141 mEq/L 12/22/2017 Comp Metabolic Vlz710 K 3.9 mEq/L 12/22/2017 Comp Metabolic Twq260 CL 99 mEq/L 12/22/2017 Comp Metabolic Nbf970 CO2 32.0 mEq/L 12/22/2017 Comp Metabolic Ved724 AN ION GAP 14 12/22/2017 Comp Metabolic Jib633 GL UCOSE 152 mg/dL 12/22/2017 Comp Metabolic Gxv854 Cr eat 1.0 mg/dL 12/22/2017 Comp Metabolic Qtm141 eG FR 78 ml/min/1.73m2 12/22 Comp Metabolic Upf000 BUN 27 mg/dL 12/22/2017 Comp Metabolic Wkl825 B/ C Ratio 27.8 Ratio 12/22/2017 Comp Metabolic Eyp847 CA LCIUM 9.7 mg/dL 12/22/2017 Comp Metabolic Tbp925 AL K PHOS 56 U/L 12/22/2017 Comp Metabolic Kdy931 T(SGOT) 18 U/L 12/22/2017 Comp Metabolic Ciz293 AL T(SGPT) 20 U/L 12/22/2017 Comp Metabolic Odu811 BI LI T 0.4 mg/dL 12/22/2017 Comp Metabolic Nxa909 AL BUMIN 4.2 g/dL 12/22/2017 Comp Metabolic Iuy045 TP RO 6.4 g/dL 12/22/2017 Comp Metabolic Ilf725 GL OB 2.2 g/dL 12/22/2017 Comp Metabolic Bco355 A/ G Ratio 1.9 Ratio 12/22/2017 Comp Metabolic Dde102 Os mo 289 mOsmo 12/22/2017 %Hba1C Xct134 % HbA1c 61143-5 7.1 % 12/22/2017 %Hba1C Vph579 Gluc Ave 157 mg/dL 12/22/2017 Cbc With Differential Ord2 WBC 10.41 K/ul 09/22/2017 Cbc With Differential Ord2 RBC 4.63 M/ul 09/22/2017 Cbc With Differential Ord2 HGB 14.6 g/dl 09/22/2017 Cbc With Differential Ord2 HCT 43.2 % 09/22/2017 Cbc With Differential Ord2 Neut% 73.5 % 09/22/2017 Cbc With Differential Ord2 Lymph% 17.6 % 09/22/2017 Cbc With Differential Ord2 MCV 93.3 fl 09/22/2017 Cbc With Differential Ord2 [place]% 8.4 % 09/22/2017 Cbc With Differential Ord2 MCH 31.5 pg 09/22/2017 Cbc With Differential Ord2 MCHC 33.8 pg 09/22/2017 Cbc With Differential Ord2 Eos% 0.4 % 09/22/2017 Cbc With Differential Ord2 PLT 222 K/ul 09/22/2017 Cbc With Differential Ord2 Baso% 0.1 % 09/22/2017 Cbc With Differential Ord2 RDW 13.7 % 09/22/2017 Cbc With Differential Ord2 Neut ABS# 7.66 K/ul 09/22/2017 Cbc With Differential Ord2 Lymph ABS# 1.83 K/ul 09/22/2017 Cbc With Differential Ord2 [place] ABS# 0.9 K/ul 09/22/2017 Cbc With Differential Ord2 Eos ABS# 0.0 K/ul 09/22/2017 Cbc With Differential Ord2 Baso ABS# 0.0 K/ul 09/22/2017 %Hba1C Trt248 % HbA1c 16705-6 6.9 % 09/22/2017 %Hba1C Rbe163 Gluc Ave 151 mg/dL 09/22/2017 Tsh Ord6 [...] 41.7 % 06/17/2017 Cbc With Differential Ord2 MCV 91.6 fl 06/17/2017 Cbc With Differential Ord2 Lymph% 22.6 % 06/17/2017 Cbc With Differential Ord2 MCH 31.6 pg 06/17/2017 Cbc With Differential Ord2 [place]% 11.1 % 06/17/2017 Cbc With Differential Ord2 [...] 2.35 K/ul 06/17/2017 Cbc With Differential Ord2 [place] ABS# 1.2 K/ul 06/17/2017 Cbc With Differential Ord2 Eos ABS# 0.1 K/ul 06/17/2017 Cbc With Differential Ord2 Baso ABS# 0.0 K/ul 06/17/2017 %Hba1C Fxi366 % HbA1c 97792-8 7.3 % 06/17/2017 %Hba1C Aao774 Gluc Ave 163 mg/dL 06/17/2017 Comp Metabolic Bam050 NA 137 mEq/L 06/17/2017 Comp Metabolic Zft357 K 3.8 mEq/L 06/17/2017 Comp Metabolic Emy860 CL 98 mEq/L 06/17/2017 Comp Metabolic Vas937 CO2 30.0 mEq/L 06/17/2017 Comp Metabolic Jwu849 AN ION GAP 13 06/17/2017 Comp Metabolic Oxf619 GL UCOSE 157 mg/dL 06/17/2017 Comp Metabolic Lnw177 Cr eat 1.0 mg/dL 06/17/2017 Comp Metabolic Lxj806 eG FR 76 ml/min/1.73m2 06/17 Comp Metabolic Ygp052 BUN 18 mg/dL 06/17/2017 Comp Metabolic Yjc773 B/ C Ratio 18.0 Ratio 06/17/2017 Comp Metabolic Mbt430 CA LCIUM 9.8 mg/dL 06/17/2017 Comp Metabolic Qzl712 AL K PHOS 57 U/L 06/17/2017 Comp Metabolic Vum633 T(SGOT) 19 U/L 06/17/2017 Comp Metabolic Zxa700 AL T(SGPT) 23 U/L 06/17/2017 Comp Metabolic Kex754 BI LI T 0.6 mg/dL 06/17/2017 Comp Metabolic Tkh137 AL BUMIN 4.4 g/dL 06/17/2017 Comp Metabolic Dub798 TP RO 6.8 g/dL 06/17/2017 Comp Metabolic Eja734 GL OB 2.4 g/dL 06/17/2017 Comp Metabolic Put639 A/ G Ratio 1.9 Ratio 06/17/2017 Comp Metabolic Ifp303 Os mo 279 mOsmo 06/17/2017 Review of [...] skin Location: scalp 10/08/2017 [place] - right rastafarian, mid fo rehead/scalp, left posterior neck - [...] skin Location: scalp 08/27/2017 [place] - right rastafarian, mid fo rehead/scalp - cryotherapy to area, [...] VACC PRSV FREE I NC ANTIG CPT-4: 48012 06/24/2018 GLUC MONITOR CONT PH YS I&R CPT-4: 35187 01/27/2018 PPPS, SUBSEQ VISIT CPT- 4: G0439 01/21/2018 GLUCOSE MONITORING CONT CPT-4: 38268 01/06/2018 ADMIN INFLUENZA VIRU S VAC CPT-4: G0008 06/09/2017 FLU VACC PRSV FREE I NC ANTIG CPT-4: 91918 06/09/2017 Vital Signs Date Vital 06/22/2018 Blood Pressure 1: 144/86 Code: 8480-6 BMI: 36.0 Code: 95435-6 Heart Rate 1: 74 bpm Height: 5'8" SpO2: 98% Weight: 237 lbs 05/14/2018 Blood Pressure 1: 132/72 Code: 8480-6 Height: Weight: 04/27/2018 Blood Pressure 1: 148/78 Code: 8480-6 BMI: 35.6 Code: 02149-2 Heart Rate 1: 77 bpm Height: 5'8" SpO2: 97% Weight: 234 lbs 04/03/2018 Blood Pressure 1: 156/80 Code: 8480-6 BMI: 35.4 Code: 74885-9 Heart Rate 1: 70 bpm Height: 5'8" SpO2: 97% Weight: 233 lbs 01/27/2018 BMI: 35.6 Code: 33414-3 Heart Rate 1: 86 bpm Height: 5'8" SpO2: 98% Weight: 234 lbs 01/21/2018 Heigh t: Weight: 01/06/2018 Heigh t: Weight: 12/31/2017 Blood Pressure 1: 140/86 Code: 8480-6 BMI: 34.2 Code: 02155-8 Heart Rate 1: 80 bpm Height: 5'8" SpO2: 98% Weight: 225 lbs 10/08/2017 Blood Pressure 1: 152/74 Code: 8480-6 BMI: 34.2 Code: 56563-0 Heart Rate 1: 67 bpm Height: 5'8" SpO2: 98% Weight: 225 lbs 08/27/2017 Blood Pressure 1: 144/82 Code: 8480-6 BMI: 34.2 Code: 96231-4 Heart Rate 1: 70 bpm Height: 5'8" SpO2: 98% Weight: 225 lbs 06/10/2017 Blood Pressure 1: 150/84 Code: 8480-6 BMI: 35.0 Code: 37510-6 Heart Rate 1: 67 bpm Height: 5'8" SpO2: 98% Weight: 230 lbs 05/20/2017 Blood Pressure 1: 146/76 Code: 8480-6 BMI: 35.3 Code: 21646-7 Heart Rate 1: 70 bpm Height: 5'8" [...] hyperglycemia[ICD10: E11.65] [facility] CPT-4: 59948 06/22/2018 45626 EST. PATIENT, LEVEL IV Diagnosis: Diplopia[ICD10: H53.2] Diagnosis: Other specified anemias[ICD10: D64.89] Laney Guerrero MD, [facility] CPT-4: 55732 05/14/2018 56402 EST. PATIENT, LEVEL III Diagnosis: Benign paroxysmal vertigo, bilateral[ICD10: H81.13] Diagnosis: Other allergic rhinitis[ICD10: J30.89] Laney Guerrero MD, [facility] CPT-4: 87713 04/27/2018 00004 EST. PATIENT, LEVEL III Diagnosis: Type 2 diabetes mellitus with hyperglycemia[ICD10: E11.65] Diagnosis: Other fatigue[ICD10: R53.83] Diagnosis: Other malaise[ICD10: R53.81] Diagnosis: Bitten or stung by nonvenomous insect and other nonvenomous arthropods, initial encounter[ICD10: W57.XXXA] Diagnosis: Cellulitis of right upper limb[ICD10: L03.113] Diagnosis: Mixed hyperlipidemia[ICD10: E78.2] Laney Guerrero MD, [facility] CPT-4: 82679 04/03/2018 ([id number]) 50357 EST. P ATIENT, LEVEL III Diagnosis: Type 2 diabetes mellitus with hyperglycemia[ICD10: E11.65] Laney Guerrero MD, [facility] CPT-4: 29199 01/27/2018 ([id number]) Miscellaneou s no charge Diagnosis: Type 2 diabetes mellitus with hyperglycemia[ICD10: E11.65] Laney Guerrero MD, [facility] CPT-4: 80250 01/13/2018 63387 EST. PATIENT, LEVEL III Diagnosis: Type 2 diabetes mellitus with hyperglycemia[ICD10: E11.65] Diagnosis: Essential (primary) hypertension[ICD10: I10] Diagnosis: Mixed hyperlipidemia[ICD10: E78.2] Laney Guerrero MD, [facility] CPT-4: 71970 12/31/2017 95088 EST. PATIENT, LEVEL III Diagnosis: Type 2 diabetes mellitus with hyperglycemia[ICD10: E11.65] Diagnosis: Essential (primary) hypertension[ICD10: I10] Diagnosis: Mixed hyperlipidemia[ICD10: E78.2] Diagnosis: Actinic keratosis[ICD10: L57.0] Laney Guerrero MD, [facility] CPT-4: 50990 10/08/2017 61676 EST. PATIENT, LEVEL III Diagnosis: Type 2 diabetes mellitus with hyperglycemia[ICD10: E11.65] Diagnosis: Essential (primary) hypertension[ICD10: I10] Diagnosis: Mixed hyperlipidemia[ICD10: E78.2] Diagnosis: Actinic keratosis[ICD10: L57.0] Laney Guerrero MD, [facility] CPT-4: 86925 08/27/2017 75182 EST. PATIENT, LEVEL III Diagnosis: Type 2 diabetes mellitus with hyperglycemia[ICD10: E11.65] Diagnosis: Essential (primary) hypertension[ICD10: I10] Diagnosis: Mixed hyperlipidemia[ICD10: E78.2] Laney Guerrero MD, [facility] CPT-4: 12150 06/25/2017 ([id number]) 38593 EST. 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 06/22/2018 Appointment: Laney Luther WPtel: [phone] [facility] (15 min) Moderate 06/22/2018 Patient Education: Patient Medication Summary Completed 06/22/2018 Patient Education: Diabetes Completed 06/22/2018 Care Plan: Referral Order SNOMED-CT : [id number] Pending 06/22/2018 Referral: [id number] Referral Initiated 06/02/2018 Appointment: Nurse Visit 05/18/2018 [...] concerns. 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 04/03/2018 Appointment: Lane[facility] Luther [facility] [phone] [facility] ([facility] min) Moderate 04/03/2018 Patient Education: Patient Medication Summary Completed 04/03/2018 Appointment: [facility] Luther [facility] [phone] [facility] (30 min) Complex 03/31/2018 Patient Education: [...] 01/27/2018 Appointment: Lane[facility] Luther [facility] [phone] [facility] ([facility] min) Complex 01/27/2018 Patient Education: [...] 01/21/2018 Appointment: Lane[facility] Luther [facility]el[facility] [phone] [facility] (15 min) Moderate 01/13/2018 Patient Education: [...] glucose control. 01/06/2018 Appointment: Laney Luther WPtel: [facility] (15 min) Moderate 01/06/2018 Patient Education: [...] liver response to medications. 12/31/2017 Appointment: [facility] [phone] [facility] (30 min) Complex 12/31/2017 Patient Education: [...] 10/08/2017 Appointment: Lane[facility] Luther [facility]Ptel[facility] [phone] [facility] ([facility] min) Complex 10/08/2017 Patient Education: Patient Medication Summary Completed 10/08/2017 Appointment: [facility] Luther [facility]el[facility] [phone] [facility] (15 min) Moderate 10/07/2017 Visit Plan: [...] concerns. 08/27/2017 Appointment: Laney Luther WPtel: [facility] (30 min) Complex 08/27/2017 Patient Education: [...] medications. 06/25/2017 Appointment: Laney Luther WPtel: [phone] [facility] (30 min) Complex 06/25/2017 Patient Education: Patient Medication Summary Completed 06/25/2017 Appointment: Debra Ramirez WPtel: [phone] [phone] (30 min) Complex 06/24/2017 Visit Plan: Hypertension [...] medications. 06/10/2017 Appointment: Debra Ramirez WPtel: [phone] [phone] (30 min) Complex 06/10/2017 Patient Education: Patient [...] glucose control. 05/20/2017 Appointment: Laney Luther WPtel: [address] [place], [place] [address] New Patient 05/20/2017 Patient Education: Patient Medication Summary Completed 05/20/2017 [id number] Ref[facility] Initiated Referral: Kevin Cuevas Referral Initiated [...] further instructions/medication interventions. GET RECENT LABS FROM [facility] FASTING LABS NEXT WEEK UNLESS WE [...]
--- OUTSIDE RECORDS SUMMARY | 2020-02-09 07:21 | XMS REPORT | CCD ---
Author Author Gunnar Luther Organization Karo Guerrero MD, [facility] Address [address] [place] [address] Phone Care Team Providers Care Caustic Loader Name Role Phone PP Unavailable CCM Unavailable Summary Purpose Interface Exchange Insurance Providers Payer name Policy type / Coverage type Covered libertarian ID Effective Begin Date Effective End Date WPS Medicare Part B Medicare Part B [id number] Unknown Aetna Medicare Part B AH [id number] Unknown Cigna Medicare Part B 80 [id number] Unknown Family history Sister Diagnosis Age At [...] ed reddy 05/20/[address]: 576150748 Never smoker 05/20/[address]: 203588779 Never drinks alcohol 05/20/2017 Allergies, Adverse Reactions, [...] Fill Instructions Tradjenta 5 mg tablet RxNorm: 8150170 TAKE 1 TABLET BY MOUTH DAILY 07/02/2018 11/28/2018 Ac tive One Touch Test strips RxNorm: 1 Miscellaneous BID 06/29/2018 07/28/2018 Active Zyrtec 10 mg tablet RxNorm: 6481391 1 Tablet(s) PO daily 04/27/2018 05/26/2018 Inactive doxycycline hyclate 100 mg capsule RxNorm: 7044918 1 Capsule(s) PO BID 04/03/2018 04/12/2018 In active meclizine 25 mg tablet RxNorm: 121963 1 Tablet(s) PO TID as needed Dizziness 04/03/2018 04/07/2018 In active metformin ER 750 mg tablet,extended release 24 hr RxNorm: 125180 2 TABLET(S) PO DAILY 02/03/2018 06/02/2018 Inactive glimepiride 2 mg tablet RxNorm: 040454 TAKE 1 TABLET BY MOUTH TWICE DAILY FOR D IABETES 01/13/2018 04/07/2019 Active glimepiride 2 mg tablet RxNorm: 477767 TAKE 1 TABLET BY MOUTH TWICE DAILY FOR D IABETES 01/11/2018 01/05/2019 Active diltiazem CD 360 mg capsule,extended release 24 hr RxNorm: 989117 1 CAPSULE(S) PO QHS 01/02/2018 12/27/2018 Ac tive atenolol 50 mg-chlor thalidone 25 mg tablet RxNorm: 298666 1 Tablet(s) PO daily 12/18/2017 12/12/2018 Juwan shah PLEASE SEND REFILL REQUESTS ELECTRONICAL LY Tradjenta 5 mg tablet RxNorm: 1067898 TAKE 1 TABLET BY MOUTH DAILY 12/15/2017 05/13/2018 In active metformin ER 750 mg tablet,extended release 24 hr RxNorm: 640731 2 TABLET(S) PO DAILY 11/05/2017 02/02/2018 Inactive metformin ER 750 mg tablet,extended release 24 hr RxNorm: 325605 2 TABLET(S) PO DAILY 11/03/2017 02/02/2018 Inactive atorvastatin 20 mg t ablet RxNorm: 445566 TAKE 1 TABLET BY MOUT H EVERY NIGHT AT BEDTIME FOR CHOLESTEROL 08/28/2017 08/22/2018 Active Zithromax Z-Maury 250 mg tablet RxNorm: 930733 1 Tablet(s) PO UD 08/15/2017 04/13/2018 Inactive Tamiflu 75 mg capsule RxNorm: 681271 1 Capsule(s) PO BID 08/15/2017 08/14/2017 Inactive Tamiflu 75 mg capsule RxNorm: 706179 1 Capsule(s) PO BID 08/15/2017 08/19/2017 Inactive Tradjenta 5 mg tablet RxNorm: 3109733 TAKE 1 TABLET BY MOUTH DAILY 08/12/2017 12/09/2017 In active metformin ER 750 mg tablet,extended release 24 hr RxNorm: 672101 TAKE 2 TABLET BY MOUT H ONCE A DAY DIRECTED 08/08/2017 No Stop Date Active SAVINGS FOR NON-COVERED MEDICATIONS Claims: BIN: [id number], PCN: [id number], GROUP: [id number], Patient ID: [id number] Phone; Questions: YourRx [phone] metformin ER 750 mg tablet,extended release 24 hr RxNorm: 355906 2 Tablet(s) PO daily 08/07/2017 08/06/2017 Inactive metformin ER 750 mg tablet,extended release 24 hr RxNorm: 931344 2 Tablet(s) PO daily 08/07/2017 11/02/2017 Inactive glimepiride 2 mg tablet RxNorm: 630155 TAKE 1 TABLET BY MOUTH TWICE DAILY FOR D IABETES 07/18/2017 01/10/2018 Inactive diltiazem CD 360 mg capsule,extended release 24 hr RxNorm: 547381 1 Capsule(s) PO QHS 07/03/2017 12/29/2017 Inactive One Touch Test strips RxNorm: 1 Miscellaneous daily 05/30/2017 06/28/2017 Inactive One Touch Test strips RxNorm: 1 Miscellaneous daily 05/30/2017 05/29/2017 Inactive iron gluconate-B cmp lx-potassium iodide-minerals oral RxNorm: 50771 oral No Start Date Active Super B Complex 100 tablet RxNorm: 1 Tablet(s) PO daily No Start Date Active Glucosamine Chondroi tin Maximum Strength oral RxNorm: 4845 oral No Start Date Active garlic 1,000 mg capsule RxNorm: 211166 1 Capsule(s) PO BID No Start Date Active vitamin E (dl, aceta te) 400 unit capsule RxNorm: 766552 1 Capsule(s) PO daily No Start Date Active beta carotene 25,000 unit tablet RxNorm: 590625 1 Tablet(s) PO daily No Start Date Active rutin 500 mg tablet RxNorm: 430378 1/2 Tablet(s) PO daily No Start Date Active Calcium 600 + [place] ls oral RxNorm: 694665 oral No S tart Date Active Vitamin D3 1,000 uni t tablet RxNorm: 607309 1 Tablet(s) PO daily No Start Date Active Vitamin C 500 mg tablet RxNorm: 582224 1 Tablet(s) PO daily No Start Date Active acidophilus 25 susanne on cell-pectin, citrus 100 mg tablet RxNorm: 778958 1 Tablet(s) PO BID No Start Date Active Zinc and C oral RxNorm: oral No Start Date Active aspirin 81 mg chewab le tablet RxNorm: 697469 1 Tablet(s) PO QPM No Start Date Active Zegerid OTC 20 mg-1. 1 gram capsule RxNorm: 405347 1 Capsule(s) PO daily No Start Date Active magnesium 250 mg tablet RxNorm: 1 Tablet(s) PO daily No Start Date Active flaxseed oil 1,000 m g capsule RxNorm: 984542 1 Capsule(s) PO BID No Start Date Active milk thistle 175 mg tablet RxNorm: 917911 1 Tablet(s) PO daily No Start Date Active metformin ER 750 mg tablet,extended release 24 hr RxNorm: 151548 2 Tablet(s) PO daily No Start Date 08/06/2017 Inactive atorvastatin 20 mg t ablet RxNorm: 099397 1 Tablet(s) PO daily No Start Date 08/27/2017 Inactive Tradjenta 5 mg tablet RxNorm: 1949019 1 Tablet(s) PO daily No Start Date 08/11/2017 Inactive diltiazem ER 300 mg tablet,extended release 24 hr RxNorm: 002362 1 Tablet(s) PO daily No Start Date 05/18/2017 Inactive glimepiride 2 mg tablet RxNorm: 726694 1 Tablet(s) PO BID No Start Date 07/17/2017 Inactive Zithromax Z-Maury 250 mg tablet RxNorm: 593263 1 Tablet(s) PO UD No Start Date 08/14/2017 Inactive atenolol 50 mg-chlor thalidone 25 mg tablet RxNorm: 990288 1 Tablet(s) PO daily No Start Date 12/17/2017 Inactive diltiazem CD 360 mg capsule,extended release 24 hr RxNorm: 255486 1 Capsule(s) PO QHS No Start Date [...] 22.7 % 05/14/2018 Cbc With Differential Ord2 Harlan% 12.2 % 05/14/2018 Cbc With Differential Ord2 [...] 1.81 K/ul 05/14/2018 Cbc With Differential Ord2 [place]lan ABS# 1.0 K/ul 05/14/2018 Cbc With Differential Ord2 Eos ABS# 0.1 K/ul 05/14/2018 Cbc With Differential Ord2 Baso ABS# 0.0 K/ul 05/14/2018 Ehrlichia Chaffeensis Antibody Igm 403103 EHRLICHIA CHAFFEENSIS IGM < 1:16 04/09/2018 Ehrlichia Chaffeensis Antibody Igg 310517 EHRLICHIA CHAFFEENSIS IGG 1:64 04/09/2018 [place] Spotted Fever Igg/Igm 86780 3 LOTUS MT SPOTTED FEVER IGM EIA . 04/09/2018 [place] Spotted Fever Igg/Igm 65513 3 RMSF, IGM 0.36 index 04/09/2018 [place] Spotted Fever Igg/Igm 59927 3 LOTUS MT SPOTTED FEVER IGG EIA FLEX . 04/09/2018 [place] Spotted Fever Igg/Igm 79563 3 RMSF, IGG SCREEN-FLEX Negative 04/09/2018 Lymes Disease Total Antibodies With Western Blot Refle x 480302 B. BURGDORFERI, IGG/IGM 0.31 04/07/2018 [place]ymes Disease Total Antibodies With Western Blot Refle x 312592 INTERPRETATION 04/07/2018 %Hba1C Pkq380 % HbA1c 01120-7 7.2 % 03/31/2018 %Hba1C Zjb287 Gluc Ave 160 mg/dL 03/31/2018 Lipid Ord30 [...] 22.4 % 12/22/2017 Cbc With Differential Ord2 Harlan% 11.5 % 12/22/2017 Cbc With Differential Ord2 [...] 2.16 K/ul 12/22/2017 Cbc With Differential Ord2 [place] ABS# 1.1 K/ul 12/22/2017 Cbc With Differential Ord2 Eos ABS# 0.1 K/ul 12/22/2017 Cbc With Differential Ord2 Baso ABS# 0.0 K/ul 12/22/2017 Comp Metabolic Fpk335 NA 141 mEq/L 12/22/2017 Comp Metabolic Ngz309 K 3.9 mEq/L 12/22/2017 Comp Metabolic Ole789 CL 99 mEq/L 12/22/2017 Comp Metabolic Njm673 CO2 32.0 mEq/L 12/22/2017 Comp Metabolic Hqo197 AN ION GAP 14 12/22/2017 Comp Metabolic Nwm984 GL UCOSE 152 mg/dL 12/22/2017 Comp Metabolic Wai609 Cr eat 1.0 mg/dL 12/22/2017 Comp Metabolic Ziu626 eG FR 78 ml/min/1.73m2 12/22 Comp Metabolic Kgk235 BUN 27 mg/dL 12/22/2017 Comp Metabolic Imn982 B/ C Ratio 27.8 Ratio 12/22/2017 Comp Metabolic Dmm301 CA LCIUM 9.7 mg/dL 12/22/2017 Comp Metabolic Zta091 AL K PHOS 56 U/L 12/22/2017 Comp Metabolic Kod654 T(SGOT) 18 U/L 12/22/2017 Comp Metabolic Mhf425 AL T(SGPT) 20 U/L 12/22/2017 Comp Metabolic Kdh732 BI LI T 0.4 mg/dL 12/22/2017 Comp Metabolic Tjx030 AL BUMIN 4.2 g/dL 12/22/2017 Comp Metabolic Fzc322 TP RO 6.4 g/dL 12/22/2017 Comp Metabolic Xwr757 GL OB 2.2 g/dL 12/22/2017 Comp Metabolic Whn779 A/ G Ratio 1.9 Ratio 12/22/2017 Comp Metabolic Ykx195 Os mo 289 mOsmo 12/22/2017 %Hba1C Ggm693 % HbA1c 40780-9 7.1 % 12/22/2017 %Hba1C Mfb605 Gluc Ave 157 mg/dL 12/22/2017 Cbc With [...] 93.3 fl 09/22/2017 Cbc With Differential Ord2 Harlan% 8.4 % 09/22/2017 Cbc With Differential Ord2 [...] 1.83 K/ul 09/22/2017 Cbc With Differential Ord2 [place] ABS# 0.9 K/ul 09/22/2017 Cbc With Differential Ord2 Eos ABS# 0.0 K/ul 09/22/2017 Cbc With Differential Ord2 Baso ABS# 0.0 K/ul 09/22/2017 %Hba1C Mtx711 % HbA1c 29938-0 6.9 % 09/22/2017 %Hba1C Aea065 Gluc Ave 151 mg/dL 09/22/2017 Tsh Ord6 [...] 31.6 pg 06/17/2017 Cbc With Differential Ord2 Harlan% 11.1 % 06/17/2017 Cbc With Differential Ord2 [...] 2.35 K/ul 06/17/2017 Cbc With Differential Ord2 [place] ABS# 1.2 K/ul 06/17/2017 Cbc With Differential Ord2 Eos ABS# 0.1 K/ul 06/17/2017 Cbc With Differential Ord2 Baso ABS# 0.0 K/ul 06/17/2017 %Hba1C Pcb748 % HbA1c 77503-1 7.3 % 06/17/2017 %Hba1C Sbu128 Gluc Ave 163 mg/dL 06/17/2017 Comp Metabolic Njb830 NA 137 mEq/L 06/17/2017 Comp Metabolic Igf248 K 3.8 mEq/L 06/17/2017 Comp Metabolic Klg447 CL 98 mEq/L 06/17/2017 Comp Metabolic Uhj002 CO2 30.0 mEq/L 06/17/2017 Comp Metabolic Dgs564 AN ION GAP 13 06/17/2017 Comp Metabolic Bfl644 GL UCOSE 157 mg/dL 06/17/2017 Comp Metabolic Uzr172 Cr eat 1.0 mg/dL 06/17/2017 Comp Metabolic Xla281 eG FR 76 ml/min/1.73m2 06/17 Comp Metabolic Lub678 BUN 18 mg/dL 06/17/2017 Comp Metabolic Hzr805 B/ C Ratio 18.0 Ratio 06/17/2017 Comp Metabolic Ilw257 CA LCIUM 9.8 mg/dL 06/17/2017 Comp Metabolic Aym762 AL K PHOS 57 U/L 06/17/2017 Comp Metabolic Plp377 T(SGOT) 19 U/L 06/17/2017 Comp Metabolic Aza502 AL T(SGPT) 23 U/L 06/17/2017 Comp Metabolic Plr815 BI LI T 0.6 mg/dL 06/17/2017 Comp Metabolic Vpz200 AL BUMIN 4.4 g/dL 06/17/2017 Comp Metabolic Eqj865 TP RO 6.8 g/dL 06/17/2017 Comp Metabolic Bix225 GL OB 2.4 g/dL 06/17/2017 Comp Metabolic Zzx694 A/ G Ratio 1.9 Ratio 06/17/2017 Comp Metabolic Kvl050 Os mo 279 mOsmo 06/17/2017 Review of [...] normal 01/21/2018 None Full Exam - General 1995 Ears/Nose/Throat lips/teeth/gingiva Overall: benign lips 01/21/2018 None Full Exam - General 1994 Respiratory respiratory effort/rhythm Overall: no retractions 01/21/2018 None Full Exam - General 1994 Respiratory respiratory effort/rhythm Overall: normal rate 01/21/2018 None Full Exam - General 1995 Musculoskeletal [...] VACC PRSV FREE I NC ANTIG CPT-4: 38971 06/24/2018 GLUC MONITOR CONT PH YS I&R CPT-4: 40145 01/27/2018 PPPS, SUBSEQ VISIT CPT- 4: G0439 01/21/2018 GLUCOSE MONITORING CONT CPT-4: 51719 01/06/2018 ADMIN INFLUENZA VIRU S VAC CPT-4: G0008 06/09/2017 FLU VACC PRSV FREE I NC ANTIG CPT-4: 47941 06/09/2017 Vital Signs Date Vital 06/22/2018 Blood Pressure 1: 144/86 Code: 8480-6 BMI: 36.0 Code: 61394-6 Heart Rate 1: 74 bpm Height: 5'8" SpO2: 98% Weight: 237 lbs 05/14/2018 Blood Pressure 1: 132/72 Code: 8480-6 Height: Weight: 04/27/2018 Blood Pressure 1: 148/78 Code: 8480-6 BMI: 35.6 Code: 33560-0 Heart Rate 1: 77 bpm Height: 5'8" SpO2: 97% Weight: 234 lbs 04/03/2018 Blood Pressure 1: 156/80 Code: 8480-6 BMI: 35.4 Code: 70908-6 Heart Rate 1: 70 bpm Height: 5'8" SpO2: 97% Weight: 233 lbs 01/27/2018 BMI: 35.6 Code: 25270-5 Heart Rate 1: 86 bpm Height: 5'8" SpO2: 98% Weight: 234 lbs 01/21/2018 Heigh t: Weight: 01/06/2018 Heigh t: Weight: 12/31/2017 Blood Pressure 1: 140/86 Code: 8480-6 BMI: 34.2 Code: 29222-2 Heart Rate 1: 80 bpm Height: 5'8" SpO2: 98% Weight: 225 lbs 10/08/2017 Blood Pressure 1: 152/74 Code: 8480-6 BMI: 34.2 Code: 74398-4 Heart Rate 1: 67 bpm Height: 5'8" SpO2: 98% Weight: 225 lbs 08/27/2017 Blood Pressure 1: 144/82 Code: 8480-6 BMI: 34.2 Code: 55898-2 Heart Rate 1: 70 bpm Height: 5'8" SpO2: 98% Weight: 225 lbs 06/10/2017 Blood Pressure 1: 150/84 Code: 8480-6 BMI: 35.0 Code: 78684-8 Heart Rate 1: 67 bpm Height: 5'8" SpO2: 98% Weight: 230 lbs 05/20/2017 Blood Pressure 1: 146/76 Code: 8480-6 BMI: 35.3 Code: 59533-9 Heart Rate 1: 70 bpm Height: 5'8" [...] Encounters Encounter Performer Loca tion Codes Date [id number] EST. PATIENT, LEVEL III Diagnosis: Type 2 diabetes mellitus with hyperglycemia[ICD10: E11.65] [facility] CPT-4: 30692 06/22/2018 73789 EST. PATIENT, LEVEL IV Diagnosis: Diplopia[ICD10: H53.2] Diagnosis: Other specified anemias[ICD10: D64.89] Laney Guerrero MD, [facility] CPT-4: 09176 05/14/2018 [id number] EST. PATIENT, LEVEL III Diagnosis: Benign paroxysmal vertigo, bilateral[ICD10: H81.13] Diagnosis: Other allergic rhinitis[ICD10: J30.89] Laney Guerrero MD, [facility] CPT-4: 12441 04/27/2018 24642 EST. PATIENT, LEVEL III Diagnosis: Type 2 diabetes mellitus with hyperglycemia[ICD10: E11.65] Diagnosis: Other fatigue[ICD10: R53.83] Diagnosis: Other malaise[ICD10: R53.81] Diagnosis: Bitten or stung by nonvenomous insect and other nonvenomous arthropods, initial encounter[ICD10: W57.XXXA] Diagnosis: Cellulitis of right upper limb[ICD10: L03.113] Diagnosis: Mixed hyperlipidemia[ICD10: E78.2] Laney Guerrero MD, [facility] CPT-4: 97548 04/03/2018 ([id number]) 43262 EST. P ATIENT, LEVEL III Diagnosis: Type 2 diabetes mellitus with hyperglycemia[ICD10: E11.65] Laney Guerrero MD, [facility] CPT-4: 76256 01/27/2018 ([id number]) Miscellaneou s no charge Diagnosis: Type 2 diabetes mellitus with hyperglycemia[ICD10: E11.65] Laney Guerrero MD, [facility] CPT-4: 27174 01/13/2018 03861 EST. PATIENT, LEVEL III Diagnosis: Type 2 diabetes mellitus with hyperglycemia[ICD10: E11.65] Diagnosis: Essential (primary) hypertension[ICD10: I10] Diagnosis: Mixed hyperlipidemia[ICD10: E78.2] Laney Guerrero MD, [facility] CPT-4: 25225 12/31/2017 80613 EST. PATIENT, LEVEL III Diagnosis: Type 2 diabetes mellitus with hyperglycemia[ICD10: E11.65] Diagnosis: Essential (primary) hypertension[ICD10: I10] Diagnosis: Mixed hyperlipidemia[ICD10: E78.2] Diagnosis: Actinic keratosis[ICD10: L57.0] Laney Guerrero MD, [facility] CPT-4: 60106 10/08/2017 21831 EST. PATIENT, LEVEL III Diagnosis: Type 2 diabetes mellitus with hyperglycemia[ICD10: E11.65] Diagnosis: Essential (primary) hypertension[ICD10: I10] Diagnosis: Mixed hyperlipidemia[ICD10: E78.2] Diagnosis: Actinic keratosis[ICD10: L57.0] [facility] CPT-4: 66164 08/27/2017 42233 EST. PATIENT, LEVEL III Diagnosis: Type 2 diabetes mellitus with hyperglycemia[ICD10: E11.65] Diagnosis: Essential (primary) hypertension[ICD10: I10] Diagnosis: Mixed hyperlipidemia[ICD10: E78.2] [facility] CPT-4: 04989 06/25/2017 ([id number]) 29637 EST. 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 06/22/2018 Appointment: Laney Luther WPtel: [facility] (15 min) Moderate 06/22/2018 Patient Education: Patient Medication Summary Completed 06/22/2018 Patient Education: Diabetes Completed 06/22/2018 Care Plan: Referral Order SNOMED-CT : [id number] Pending 06/22/2018 Referral: Christian Johnson [facility] Referral Initiated 06/02/2018 Appointment: Nurse Visit [...] or concerns. 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 04/03/2018 [facility]ment[facility] [phone] [facility] (15 min) Moderate 04/03/2018 Patient Education: Patient Medication Summary Completed 04/03/2018 App[facility]ment: [facility] Lutherl[facility] [address] [facility] (30 min) Complex 03/31/2018 Patient Education: [...] 01/27/2018 Appointment: Lane[facility] Luther [facility]el[facility] [phone] [facility] (30 min) Complex 01/27/2018 Patient Education: [...] 01/21/2018 Appointment: Laney Luther [facility]Ptel[facility] [address] [facility] (15 min) Moderate 01/13/2018 Patient Education: [...] control. 01/06/2018 Appointment: Laney Luther [facility]Ptel[facility] [phone] [facility] (15 min) Moderate 01/06/2018 Patient Education: [...] medications. 12/31/2017 Appointment: Laney Luther [facility]Ptel[facility] [address] [facility] (30 min) Complex 12/31/2017 Patient Education: [...] 10/08/2017 Appointment: Laney Luther [facility]Ptel[facility] [phone] [facility] (30 min) Complex 10/08/2017 Patient Education: Patient Medication Summary Completed 10/08/2017 Appointment: Laney Luther [facility]Ptel[facility] [address] [facility] (15 min) Moderate 10/07/2017 Visit Plan: [...] acute concerns. 08/27/2017 Appointment: Laney Luther WPtel: [address] [place], [place] [address] (30 min) Complex 08/27/2017 Patient Education: Patient [...] medications. 06/25/2017 Appointment: Laney Luther WPtel: [phone] [facility] (30 min) Complex 06/25/2017 Patient Education: Patient Medication Summary Completed 06/25/2017 Appointment: Debra Ramirez WPtel: [phone] [id number] (30 min) Complex 06/24/2017 Visit Plan: [...] to medications. 06/10/2017 Appointment: Debra Ramirez WPtel: [phone] [phone] (30 min) Complex 06/10/2017 Patient Education: [...] glucose control. 05/20/2017 Appointment: Laney Luther WPtel: [facility] [facility] New Patient 05/20/2017 Patient Education: Patient Medication Summary Completed 05/20/2017 [facility] Ref[facility] Initiated Referral: Kevin Cuevas Referral [...] further instructions/medication interventions. GET RECENT LABS FROM [facility] FASTING LABS NEXT WEEK UNLESS [...]
--- OUTSIDE RECORDS SUMMARY | 2020-02-09 07:22 | XMS REPORT | CCD ---
Author Author Gunnar Luther Organization Karo Guerrero MD, [facility] Address [address] [place] [address] Phone Care Team Providers Care Asparagus Buncher Name Role Phone PP Unavailable CCM Unavailable Summary Purpose Interface Exchange Insurance Providers Payer name Policy type / Coverage type Covered democrat ID Effective Begin Date Effective End Date WPS Medicare Part B Medicare Part B [id number] Unknown Aetna Medicare Part B AH [id number] Unknown Cigna Medicare Part B 80 [id number] Unknown Family history Sister Diagnosis Age At [...] ed reddy 05/20/[address]: 081534316 Never smoker 05/20/[address]: 397363815 Never drinks alcohol 05/20/2017 Allergies, Adverse Reactions, [...] Date Stop Date Sta tus Fill Instructions One Touch Test strips RxNorm: 1 Miscellaneous BID 06/29/2018 07/28/2018 Active Zyrtec 10 mg tablet RxNorm: 6297669 1 Tablet(s) PO daily 04/27/2018 05/26/2018 Inactive doxycycline hyclate 100 mg capsule RxNorm: 8666659 1 Capsule(s) PO BID 04/03/2018 04/12/2018 In active meclizine 25 mg tablet RxNorm: 428549 1 Tablet(s) PO TID as needed Dizziness 04/03/2018 04/07/2018 In active metformin ER 750 mg tablet,extended release 24 hr RxNorm: 026615 2 TABLET(S) PO DAILY 02/03/2018 06/02/2018 Inactive glimepiride 2 mg tablet RxNorm: 288157 TAKE 1 TABLET BY MOUTH TWICE DAILY FOR D IABETES 01/13/2018 04/07/2019 Active glimepiride 2 mg tablet RxNorm: 704744 TAKE 1 TABLET BY MOUTH TWICE DAILY FOR D IABETES 01/11/2018 01/05/2019 Active diltiazem CD 360 mg capsule,extended release 24 hr RxNorm: 307720 1 CAPSULE(S) PO QHS 01/02/2018 12/27/2018 Ac tive atenolol 50 mg-chlor thalidone 25 mg tablet RxNorm: 886714 1 Tablet(s) PO daily 12/18/2017 12/12/2018 Ac tive PLEASE SEND REFILL REQUESTS ELECTRONICAL LY Tradjenta 5 mg tablet RxNorm: 0928583 TAKE 1 TABLET BY MOUTH DAILY 12/15/2017 05/13/2018 In active metformin ER 750 mg tablet,extended release 24 hr RxNorm: 163222 2 TABLET(S) PO DAILY 11/05/2017 02/02/2018 Inactive metformin ER 750 mg tablet,extended release 24 hr RxNorm: 612600 2 TABLET(S) PO DAILY 11/03/2017 02/02/2018 Inactive atorvastatin 20 mg t ablet RxNorm: 866629 TAKE 1 TABLET BY MOUT H EVERY NIGHT AT BEDTIME FOR CHOLESTEROL 08/28/2017 08/22/2018 Active Zithromax Z-Maury 250 mg tablet RxNorm: 605479 1 Tablet(s) PO UD 08/15/2017 04/13/2018 Inactive Tamiflu 75 mg capsule RxNorm: 713732 1 Capsule(s) PO BID 08/15/2017 08/14/2017 Inactive Tamiflu 75 mg capsule RxNorm: 284273 1 Capsule(s) PO BID 08/15/2017 08/19/2017 Inactive Tradjenta 5 mg tablet RxNorm: 8440255 TAKE 1 TABLET BY MOUTH DAILY 08/12/2017 12/09/2017 In active metformin ER 750 mg tablet,extended release 24 hr RxNorm: 602870 TAKE 2 TABLET BY MOUT H ONCE A DAY DIRECTED 08/08/2017 No Stop Date Active SAVINGS FOR NON-COVERED MEDICATIONS Claims: BIN: [id number], PCN: [id number], GROUP: [id number], Patient ID: [id number] Phone; Questions: YourRx [phone] metformin ER 750 mg tablet,extended release 24 hr RxNorm: 354012 2 Tablet(s) PO daily 08/07/2017 08/06/2017 Inactive metformin ER 750 mg tablet,extended release 24 hr RxNorm: 331306 2 Tablet(s) PO daily 08/07/2017 11/02/2017 Inactive glimepiride 2 mg tablet RxNorm: 888672 TAKE 1 TABLET BY MOUTH TWICE DAILY FOR D IABETES 07/18/2017 01/10/2018 Inactive diltiazem CD 360 mg capsule,extended release 24 hr RxNorm: 505763 1 Capsule(s) PO QHS 07/03/2017 12/29/2017 Inactive One Touch Test strips RxNorm: 1 Miscellaneous daily 05/30/2017 06/28/2017 Inactive One Touch Test strips RxNorm: 1 Miscellaneous daily 05/30/2017 05/29/2017 Inactive iron gluconate-B cmp lx-potassium iodide-minerals oral RxNorm: 76414 oral No Start Date Active Super B Complex 100 tablet RxNorm: 1 Tablet(s) PO daily No Start Date Active Glucosamine Chondroi tin Maximum Strength oral RxNorm: 4845 oral No Start Date Active garlic 1,000 mg capsule RxNorm: 771465 1 Capsule(s) PO BID No Start Date Active vitamin E (dl, aceta te) 400 unit capsule RxNorm: 618943 1 Capsule(s) PO daily No Start Date Active beta carotene 25,000 unit tablet RxNorm: 565858 1 Tablet(s) PO daily No Start Date Active rutin 500 mg tablet RxNorm: 680960 1/2 Tablet(s) PO daily No Start Date Active Calcium 600 + [place] ls oral RxNorm: 405376 oral No S tart Date Active Vitamin D3 1,000 uni t tablet RxNorm: 050689 1 Tablet(s) PO daily No Start Date Active Vitamin C 500 mg tablet RxNorm: 252985 1 Tablet(s) PO daily No Start Date Active acidophilus 25 susanne on cell-pectin, citrus 100 mg tablet RxNorm: 230319 1 Tablet(s) PO BID No Start Date Active Zinc and C oral RxNorm: oral No Start Date Active aspirin 81 mg chewab le tablet RxNorm: 184163 1 Tablet(s) PO QPM No Start Date Active Zegerid OTC 20 mg-1. 1 gram capsule RxNorm: 713143 1 Capsule(s) PO daily No Start Date Active magnesium 250 mg tablet RxNorm: 1 Tablet(s) PO daily No Start Date Active flaxseed oil 1,000 m g capsule RxNorm: 531366 1 Capsule(s) PO BID No Start Date Active milk thistle 175 mg tablet RxNorm: 375697 1 Tablet(s) PO daily No Start Date Active metformin ER 750 mg tablet,extended release 24 hr RxNorm: 425063 2 Tablet(s) PO daily No Start Date 08/06/2017 Inactive atorvastatin 20 mg t ablet RxNorm: 807803 1 Tablet(s) PO daily No Start Date 08/27/2017 Inactive Tradjenta 5 mg tablet RxNorm: 1363601 1 Tablet(s) PO daily No Start Date 08/11/2017 Inactive diltiazem ER 300 mg tablet,extended release 24 hr RxNorm: 796887 1 Tablet(s) PO daily No Start Date 05/18/2017 Inactive glimepiride 2 mg tablet RxNorm: 205777 1 Tablet(s) PO BID No Start Date 07/17/2017 Inactive Zithromax Z-Maury 250 mg tablet RxNorm: 770636 1 Tablet(s) PO UD No Start Date 08/14/2017 Inactive atenolol 50 mg-chlor thalidone 25 mg tablet RxNorm: 621679 1 Tablet(s) PO daily No Start Date 12/17/2017 Inactive diltiazem CD 360 mg capsule,extended release 24 hr RxNorm: 268345 1 Capsule(s) PO QHS No Start Date [...] 22.7 % 05/14/2018 Cbc With Differential Ord2 [place]% 12.2 % 05/14/2018 Cbc With Differential Ord2 [...] 1.81 K/ul 05/14/2018 Cbc With Differential Ord2 [place] ABS# 1.0 K/ul 05/14/2018 Cbc With Differential Ord2 Eos ABS# 0.1 K/ul 05/14/2018 Cbc With Differential Ord2 Baso ABS# 0.0 K/ul 05/14/2018 Ehrlichia Chaffeensis Antibody Igm 429021 EHRLICHIA CHAFFEENSIS IGM < 1:16 04/09/2018 Ehrlichia Chaffeensis Antibody Igg 131128 EHRLICHIA CHAFFEENSIS IGG 1:64 04/09/2018 Attapulgus Spotted Fever Igg/Igm 51068 3 LOTUS MT SPOTTED FEVER IGM EIA . 04/09/2018 Attapulgus Spotted Fever Igg/Igm 37452 3 RMSF, IGM 0.36 index 04/09/2018 [place]ulgus Spotted Fever Igg/Igm 66120 3 LOTUS MT SPOTTED FEVER IGG EIA FLEX . 04/09/2018 [place]ul[place] Spotted Fever Igg/Igm 86813 3 RMSF, IGG SCREEN-FLEX Negative 04/09/2018 Lymes Disease Total Antibodies With Western Blot Refle x [id number] B. BURGDORFERI, IGG/IGM 0.31 04/07/2018 Lymes Disease Total Antibodies With Western Blot Refle x [id number] INTERPRETATION 04/07/2018 %Hba1C Sig499 % HbA1c 31804-8 7.2 % 03/31/2018 %Hba1C Yzn048 Gluc Ave 160 mg/dL 03/31/2018 Lipid Ord30 [...] 22.4 % 12/22/2017 Cbc With Differential Ord2 [place]% 11.5 % 12/22/2017 Cbc With Differential Ord2 [...] 2.16 K/ul 12/22/2017 Cbc With Differential Ord2 [place] ABS# 1.1 K/ul 12/22/2017 Cbc With Differential Ord2 Eos ABS# 0.1 K/ul 12/22/2017 Cbc With Differential Ord2 Baso ABS# 0.0 K/ul 12/22/2017 Comp Metabolic Yxg591 NA 141 mEq/L 12/22/2017 Comp Metabolic Fwu543 K 3.9 mEq/L 12/22/2017 Comp Metabolic Xte756 CL 99 mEq/L 12/22/2017 Comp Metabolic Apn091 CO2 32.0 mEq/L 12/22/2017 Comp Metabolic Uga430 AN ION GAP 14 12/22/2017 Comp Metabolic Ped491 GL UCOSE 152 mg/dL 12/22/2017 Comp Metabolic Vaq540 Cr eat 1.0 mg/dL 12/22/2017 Comp Metabolic Uhp967 eG FR 78 ml/min/1.73m2 12/22 Comp Metabolic Hvy976 BUN 27 mg/dL 12/22/2017 Comp Metabolic Hyp020 B/ C Ratio 27.8 Ratio 12/22/2017 Comp Metabolic Hld879 CA LCIUM 9.7 mg/dL 12/22/2017 Comp Metabolic Ygg569 AL K PHOS 56 U/L 12/22/2017 Comp Metabolic Gxy854 T(SGOT) 18 U/L 12/22/2017 Comp Metabolic Cqf761 AL T(SGPT) 20 U/L 12/22/2017 Comp Metabolic Qwu091 BI LI T 0.4 mg/dL 12/22/2017 Comp Metabolic Lqd062 AL BUMIN 4.2 g/dL 12/22/2017 Comp Metabolic Yus916 TP RO 6.4 g/dL 12/22/2017 Comp Metabolic Tnl618 GL OB 2.2 g/dL 12/22/2017 Comp Metabolic Qqj817 A/ G Ratio 1.9 Ratio 12/22/2017 Comp Metabolic Rlu988 Os mo 289 mOsmo 12/22/2017 %Hba1C Ajd015 % HbA1c 08030-7 7.1 % 12/22/2017 %Hba1C Ych742 Gluc Ave 157 mg/dL 12/22/2017 Cbc With [...] 93.3 fl 09/22/2017 Cbc With Differential Ord2 [place]% 8.4 % 09/22/2017 Cbc With Differential Ord2 [...] 1.83 K/ul 09/22/2017 Cbc With Differential Ord2 [place] ABS# 0.9 K/ul 09/22/2017 Cbc With Differential Ord2 Eos ABS# 0.0 K/ul 09/22/2017 Cbc With Differential Ord2 Baso ABS# 0.0 K/ul 09/22/2017 %Hba1C Jay712 % HbA1c 75650-8 6.9 % 09/22/2017 %Hba1C Bqd671 Gluc Ave 151 mg/dL 09/22/2017 Tsh Ord6 [...] 31.6 pg 06/17/2017 Cbc With Differential Ord2 [place]% 11.1 % 06/17/2017 Cbc With Differential Ord2 [...] 2.35 K/ul 06/17/2017 Cbc With Differential Ord2 [place] ABS# 1.2 K/ul 06/17/2017 Cbc With Differential Ord2 Eos ABS# 0.1 K/ul 06/17/2017 Cbc With Differential Ord2 Baso ABS# 0.0 K/ul 06/17/2017 %Hba1C Vqp896 % HbA1c 80783-4 7.3 % 06/17/2017 %Hba1C Pkn120 Gluc Ave 163 mg/dL 06/17/2017 Comp Metabolic Zup417 NA 137 mEq/L 06/17/2017 Comp Metabolic Ksr932 K 3.8 mEq/L 06/17/2017 Comp Metabolic Oui870 CL 98 mEq/L 06/17/2017 Comp Metabolic Xpa547 CO2 30.0 mEq/L 06/17/2017 Comp Metabolic Ber821 AN ION GAP 13 06/17/2017 Comp Metabolic Uwu092 GL UCOSE 157 mg/dL 06/17/2017 Comp Metabolic Ooi751 Cr eat 1.0 mg/dL 06/17/2017 Comp Metabolic Yej057 eG FR 76 ml/min/1.73m2 06/17 Comp Metabolic Ksr472 BUN 18 mg/dL 06/17/2017 Comp Metabolic Yph015 B/ C Ratio 18.0 Ratio 06/17/2017 Comp Metabolic Csp819 CA LCIUM 9.8 mg/dL 06/17/2017 Comp Metabolic Bfe347 AL K PHOS 57 U/L 06/17/2017 Comp Metabolic Enm293 T(SGOT) 19 U/L 06/17/2017 Comp Metabolic Zcx169 AL T(SGPT) 23 U/L 06/17/2017 Comp Metabolic Eov987 BI LI T 0.6 mg/dL 06/17/2017 Comp Metabolic Ont983 AL BUMIN 4.4 g/dL 06/17/2017 Comp Metabolic Sti048 TP RO 6.8 g/dL 06/17/2017 Comp Metabolic Tzh636 GL OB 2.4 g/dL 06/17/2017 Comp Metabolic Ccl457 A/ G Ratio 1.9 Ratio 06/17/2017 Comp Metabolic Gid242 Os mo 279 mOsmo 06/17/2017 Review of [...] VACC PRSV FREE I NC ANTIG CPT-4: 50884 06/24/2018 GLUC MONITOR CONT PH YS I&R CPT-4: 40931 01/27/2018 PPPS, SUBSEQ VISIT CPT- 4: G0439 01/21/2018 GLUCOSE MONITORING CONT CPT-4: 64475 01/06/2018 ADMIN INFLUENZA VIRU S VAC CPT-4: G0008 06/09/2017 FLU VACC PRSV FREE I NC ANTIG CPT-4: 76452 06/09/2017 Vital Signs Date Vital 06/22/2018 Blood Pressure 1: 144/86 Code: 8480-6 BMI: 36.0 Code: 64716-9 Heart Rate 1: 74 bpm Height: 5'8" SpO2: 98% Weight: 237 lbs 05/14/2018 Blood Pressure 1: 132/72 Code: 8480-6 Height: Weight: 04/27/2018 Blood Pressure 1: 148/78 Code: 8480-6 BMI: 35.6 Code: 78154-8 Heart Rate 1: 77 bpm Height: 5'8" SpO2: 97% Weight: 234 lbs 04/03/2018 Blood Pressure 1: 156/80 Code: 8480-6 BMI: 35.4 Code: 42477-1 Heart Rate 1: 70 bpm Height: 5'8" SpO2: 97% Weight: 233 lbs 01/27/2018 BMI: 35.6 Code: 68403-6 Heart Rate 1: 86 bpm Height: 5'8" SpO2: 98% Weight: 234 lbs 01/21/2018 Heigh t: Weight: 01/06/2018 Heigh t: Weight: 12/31/2017 Blood Pressure 1: 140/86 Code: 8480-6 BMI: 34.2 Code: 26644-1 Heart Rate 1: 80 bpm Height: 5'8" SpO2: 98% Weight: 225 lbs 10/08/2017 Blood Pressure 1: 152/74 Code: 8480-6 BMI: 34.2 Code: 68049-9 Heart Rate 1: 67 bpm Height: 5'8" SpO2: 98% Weight: 225 lbs 08/27/2017 Blood Pressure 1: 144/82 Code: 8480-6 BMI: 34.2 Code: 30417-2 Heart Rate 1: 70 bpm Height: 5'8" SpO2: 98% Weight: 225 lbs 06/10/2017 Blood Pressure 1: 150/84 Code: 8480-6 BMI: 35.0 Code: 93735-1 Heart Rate 1: 67 bpm Height: 5'8" SpO2: 98% Weight: 230 lbs 05/20/2017 Blood Pressure 1: 146/76 Code: 8480-6 BMI: 35.3 Code: 88766-0 Heart Rate 1: 70 bpm Height: 5'8" [...] Encounters Encounter Performer Loca tion Codes Date 35868 EST. PATIENT, LEVEL III Diagnosis: Type 2 diabetes mellitus with hyperglycemia[ICD10: E11.65] [facility] CPT-4: 23426 06/22/2018 17430 EST. PATIENT, LEVEL IV Diagnosis: Diplopia[ICD10: H53.2] Diagnosis: Other specified anemias[ICD10: D64.89] [facility] CPT-4: 61754 05/14/2018 91291 EST. PATIENT, LEVEL III Diagnosis: Benign paroxysmal vertigo, bilateral[ICD10: H81.13] Diagnosis: Other allergic rhinitis[ICD10: J30.89] [facility] CPT-4: 66130 04/27/2018 11095 EST. PATIENT, LEVEL III Diagnosis: Type 2 diabetes mellitus with hyperglycemia[ICD10: E11.65] Diagnosis: Other fatigue[ICD10: R53.83] Diagnosis: Other malaise[ICD10: R53.81] Diagnosis: Bitten or stung by nonvenomous insect and other nonvenomous arthropods, initial encounter[ICD10: W57.XXXA] Diagnosis: Cellulitis of right upper limb[ICD10: L03.113] Diagnosis: Mixed hyperlipidemia[ICD10: E78.2] Laney Guerrero MD, [facility] CPT-4: 18530 04/03/2018 ([id number]) 43094 EST. P ATIENT, LEVEL III Diagnosis: Type 2 diabetes mellitus with hyperglycemia[ICD10: E11.65] Laney Guerrero MD, [facility] CPT-4: 09915 01/27/2018 ([id number]) Miscellaneou s no charge Diagnosis: Type 2 diabetes mellitus with hyperglycemia[ICD10: E11.65] Laney Guerrero MD, [facility] CPT-4: 52717 01/13/2018 32187 EST. PATIENT, LEVEL III Diagnosis: Type 2 diabetes mellitus with hyperglycemia[ICD10: E11.65] Diagnosis: Essential (primary) hypertension[ICD10: I10] Diagnosis: Mixed hyperlipidemia[ICD10: E78.2] Laney Guerrero MD, [facility] CPT-4: 68309 12/31/2017 36740 EST. PATIENT, LEVEL III Diagnosis: Type 2 diabetes mellitus with hyperglycemia[ICD10: E11.65] Diagnosis: Essential (primary) hypertension[ICD10: I10] Diagnosis: Mixed hyperlipidemia[ICD10: E78.2] Diagnosis: Actinic keratosis[ICD10: L57.0] Laney Guerrero MD, [facility] CPT-4: 92195 10/08/2017 07000 EST. PATIENT, LEVEL III Diagnosis: Type 2 diabetes mellitus with hyperglycemia[ICD10: E11.65] Diagnosis: Essential (primary) hypertension[ICD10: I10] Diagnosis: Mixed hyperlipidemia[ICD10: E78.2] Diagnosis: Actinic keratosis[ICD10: L57.0] [facility] CPT-4: 22445 08/27/2017 52554 EST. PATIENT, LEVEL III Diagnosis: Type 2 diabetes mellitus with hyperglycemia[ICD10: E11.65] Diagnosis: Essential (primary) hypertension[ICD10: I10] Diagnosis: Mixed hyperlipidemia[ICD10: E78.2] Laney Guerrero MD, [facility] CPT-4: 24730 06/25/2017 ([id number]) 62201 EST. 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 06/22/2018 Appointment: Laney Luther WPtel: [phone] [facility] (15 min) Moderate 06/22/2018 Patient Education: Patient Medication Summary Completed 06/22/2018 Patient Education: Diabetes Completed 06/22/2018 Care Plan: Referral Order SNOMED-CT : 757006221 Pending 06/22/2018 Referral: [facility] Referral Initiated 06/02/2018 Appointment: Nurse Visit 05/18/2018 [...] concerns. 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 04/03/2018 [facility]ment[phone] ([facility] min) Moderate 04/03/2018 [...] control. 01/27/2018 [phone] (30 min) Complex 01/27/2018 [...] control. 01/06/2018 [facility]ment: [phone] (15 min) Moderate 01/06/2018 Patient Education: Patient Medication Summary Completed 01/06/2018 Visit Plan: Hypertension - well con trokeyshawned - continue with current medications, continue with [...] to medications. 12/31/2017 Appointment: [facility] Luther [facility] [phone] [facility] ([facility] min) Complex 12/31/2017 [...] acute concerns. 10/08/2017 [facility]ment[phone] ([facility] min) Complex 10/08/2017 Patient Education: Patient Medication Summary Completed 10/08/2017 [facility]ment[phone] [facility] (15 min) Moderate [...] medications. 06/25/2017 Appointment: Laney Luther WPtel: [phone] [facility] (30 min) Complex 06/25/2017 Patient Education: Patient Medication Summary Completed 06/25/2017 Appointment: Debra Ramirez WPtel: [phone] [phone] (30 min) Complex 06/24/2017 Visit Plan: [...] medications. 06/10/2017 Appointment: Debra Ramirez WPtel: [phone] [phone] (30 min) Complex 06/10/2017 Patient Education: [...] glucose control. 05/20/2017 Appointment: Laney Luther WPtel: [address] [place], [place] [address] New Patient 05/20/2017 Patient Education: Patient Medication Summary Completed 05/20/2017 [facility] Ref[facility] Initiated Referral: Kevin Cuevas Referral [...] further instructions/medication interventions. GET RECENT LABS FROM [facility] FA[facility] NEXT WEEK UNLESS WE CALL [...]
--- OUTSIDE RECORDS SUMMARY | 2020-02-09 07:23 | XMS REPORT | CCD ---
Author Author Gunnar Luther Organization Karo Guerrero MD, [facility] Address [address] [place] [address] Phone Care Team Providers Care Wrapper Dipper Name Role Phone PP Unavailable CCM Unavailable Summary Purpose Interface Exchange Insurance Providers Payer name Policy type / Coverage type Covered alliance party ID Effective Begin Date Effective End Date WPS Medicare Part B Medicare Part B [id number] Unknown Aetna Medicare Part B AH [id number] Unknown Cigna Medicare Part B 80 [id number] Unknown Family history Sister Diagnosis Age At [...] ed reddy 05/20/[address]: 739449528 Never smoker 05/20/[address]: 866857791 Never drinks alcohol 05/20/2017 Allergies, Adverse Reactions, [...] Date Stop Date Sta tus Fill Instructions Zyrtec 10 mg tablet RxNorm: 8969617 1 Tablet(s) PO daily 04/27/2018 05/26/2018 Inactive doxycycline hyclate 100 mg capsule RxNorm: 8513534 1 Capsule(s) PO BID 04/03/2018 04/12/2018 In active meclizine 25 mg tablet RxNorm: 934195 1 Tablet(s) PO TID as needed Dizziness 04/03/2018 04/07/2018 In active metformin ER 750 mg tablet,extended release 24 hr RxNorm: 005299 2 TABLET(S) PO DAILY 02/03/2018 06/02/2018 Inactive glimepiride 2 mg tablet RxNorm: 219752 TAKE 1 TABLET BY MOUTH TWICE DAILY FOR D IABETES 01/13/2018 04/07/2019 Active glimepiride 2 mg tablet RxNorm: 575753 TAKE 1 TABLET BY MOUTH TWICE DAILY FOR D IABETES 01/11/2018 01/05/2019 Active diltiazem CD 360 mg capsule,extended release 24 hr RxNorm: 976397 1 CAPSULE(S) PO QHS 01/02/2018 12/27/2018 Ac tive atenolol 50 mg-chlor thalidone 25 mg tablet RxNorm: 350774 1 Tablet(s) PO daily 12/18/2017 12/12/2018 Ac tive PLEASE SEND REFILL REQUESTS ELECTRONICAL LY Tradjenta 5 mg tablet RxNorm: 6492833 TAKE 1 TABLET BY MOUTH DAILY 12/15/2017 05/13/2018 In active metformin ER 750 mg tablet,extended release 24 hr RxNorm: 832513 2 TABLET(S) PO DAILY 11/05/2017 02/02/2018 Inactive metformin ER 750 mg tablet,extended release 24 hr RxNorm: 762277 2 TABLET(S) PO DAILY 11/03/2017 02/02/2018 Inactive atorvastatin 20 mg t ablet RxNorm: 623963 TAKE 1 TABLET BY MOUT H EVERY NIGHT AT BEDTIME FOR CHOLESTEROL 08/28/2017 08/22/2018 Active Zithromax Z-Maury 250 mg tablet RxNorm: 718017 1 Tablet(s) PO UD 08/15/2017 04/13/2018 Inactive Tamiflu 75 mg capsule RxNorm: 106400 1 Capsule(s) PO BID 08/15/2017 08/14/2017 Inactive Tamiflu 75 mg capsule RxNorm: 572518 1 Capsule(s) PO BID 08/15/2017 08/19/2017 Inactive Tradjenta 5 mg tablet RxNorm: 1222848 TAKE 1 TABLET BY MOUTH DAILY 08/12/2017 12/09/2017 In active metformin ER 750 mg tablet,extended release 24 hr RxNorm: 251061 TAKE 2 TABLET BY MOUT H ONCE A DAY DIRECTED 08/08/2017 No Stop Date Active SAVINGS FOR NON-COVERED MEDICATIONS Claims: BIN: [id number], PCN: [id number], GROUP: [id number], Patient ID: [id number] Phone; Questions: Your[facility] [phone] metformin ER 750 mg tablet,extended release 24 hr RxNorm: 490587 2 Tablet(s) PO daily 08/07/2017 08/06/2017 Inactive metformin ER 750 mg tablet,extended release 24 hr RxNorm: 123686 2 Tablet(s) PO daily 08/07/2017 11/02/2017 Inactive glimepiride 2 mg tablet RxNorm: 212250 TAKE 1 TABLET BY MOUTH TWICE DAILY FOR D IABETES 07/18/2017 01/10/2018 Inactive diltiazem CD 360 mg capsule,extended release 24 hr RxNorm: 557763 1 Capsule(s) PO QHS 07/03/2017 12/29/2017 Inactive One Touch Test strips RxNorm: 1 Miscellaneous daily 05/30/2017 06/28/2017 Inactive One Touch Test strips RxNorm: 1 Miscellaneous daily 05/30/2017 05/29/2017 Inactive iron gluconate-B cmp lx-potassium iodide-minerals oral RxNorm: 47529 oral No Start Date Active Super B Complex 100 tablet RxNorm: 1 Tablet(s) PO daily No Start Date Active Glucosamine Chondroi tin Maximum Strength oral RxNorm: 4845 oral No Start Date Active garlic 1,000 mg capsule RxNorm: 086351 1 Capsule(s) PO BID No Start Date Active vitamin E (dl, aceta te) 400 unit capsule RxNorm: 665633 1 Capsule(s) PO daily No Start Date Active beta carotene 25,000 unit tablet RxNorm: 129052 1 Tablet(s) PO daily No Start Date Active rutin 500 mg tablet RxNorm: 993132 1/2 Tablet(s) PO daily No Start Date Active Calcium 600 + Min[place] ls oral RxNorm: 244321 oral No S tart Date Active Vitamin D3 1,000 uni t tablet RxNorm: 526488 1 Tablet(s) PO daily No Start Date Active Vitamin C 500 mg tablet RxNorm: 484364 1 Tablet(s) PO daily No Start Date Active acidophilus 25 susanne on cell-pectin, citrus 100 mg tablet RxNorm: 949280 1 Tablet(s) PO BID No Start Date Active Zinc and C oral RxNorm: oral No Start Date Active aspirin 81 mg chewab le tablet RxNorm: 139201 1 Tablet(s) PO QPM No Start Date Active Zegerid OTC 20 mg-1. 1 gram capsule RxNorm: 110928 1 Capsule(s) PO daily No Start Date Active magnesium 250 mg tablet RxNorm: 1 Tablet(s) PO daily No Start Date Active flaxseed oil 1,000 m g capsule RxNorm: 266455 1 Capsule(s) PO BID No Start Date Active milk thistle 175 mg tablet RxNorm: 606413 1 Tablet(s) PO daily No Start Date Active metformin ER 750 mg tablet,extended release 24 hr RxNorm: 251186 2 Tablet(s) PO daily No Start Date 08/06/2017 Inactive atorvastatin 20 mg t ablet RxNorm: 575469 1 Tablet(s) PO daily No Start Date 08/27/2017 Inactive Tradjenta 5 mg tablet RxNorm: 7791339 1 Tablet(s) PO daily No Start Date 08/11/2017 Inactive diltiazem ER 300 mg tablet,extended release 24 hr RxNorm: 196145 1 Tablet(s) PO daily No Start Date 05/18/2017 Inactive glimepiride 2 mg tablet RxNorm: 593168 1 Tablet(s) PO BID No Start Date 07/17/2017 Inactive Zithromax Z-Maury 250 mg tablet RxNorm: 801928 1 Tablet(s) PO UD No Start Date 08/14/2017 Inactive atenolol 50 mg-chlor thalidone 25 mg tablet RxNorm: 472164 1 Tablet(s) PO daily No Start Date 12/17/2017 Inactive diltiazem CD 360 mg capsule,extended release 24 hr RxNorm: 530800 1 Capsule(s) PO QHS No Start Date 07/02/2017 Inactive Medication Administered No Medication Administered data Immunizations Vaccine Codes Date Status Influenza CVX: 141 06/09 completed Assessments Condition [...] 22.7 % 05/14/2018 Cbc With Differential Ord2 Duval% 12.2 % 05/14/2018 Cbc With Differential Ord2 [...] 1.81 K/ul 05/14/2018 Cbc With Differential Ord2 Duval ABS# 1.0 K/ul 05/14/2018 Cbc With Differential Ord2 Eos ABS# 0.1 K/ul 05/14/2018 Cbc With Differential Ord2 Baso ABS# 0.0 K/ul 05/14/2018 Ehrlichia Chaffeensis Antibody Igm [id number] EHRLICHIA CHAFFEENSIS IGM < 1:16 04/09/2018 Ehrlichia Chaffeensis Antibody Igg 714276 EHRLICHIA CHAFFEENSIS IGG 1:64 04/09/2018 Point Spotted Fever Igg/Igm 75796 3 LOTUS MT SPOTTED FEVER IGM EIA . 04/09/2018 Point Spotted Fever Igg/Igm 96693 3 RMSF, IGM 0.36 index 04/09/2018 Point Spotted Fever Igg/Igm 85696 3 LOTUS MT SPOTTED FEVER IGG EIA FLEX . 04/09/2018 Point Spotted Fever Igg/Igm 04124 3 RMSF, IGG SCREEN-FLEX Negative 04/09/2018 Lymes Disease Total Antibodies With Western Blot Refle x [id number] B. BURGDORFERI, IGG/IGM 0.31 04/07/2018 Lymes Disease Total Antibodies With Western Blot Refle x [id number] INTERPRETATION 04/07/2018 %Hba1C Xza447 % HbA1c 94525-3 7.2 % 03/31/2018 %Hba1C Nnv262 Gluc Ave 160 mg/dL 03/31/2018 Lipid Ord30 [...] 22.4 % 12/22/2017 Cbc With Differential Ord2 Duval% 11.5 % 12/22/2017 Cbc With Differential Ord2 [...] 2.16 K/ul 12/22/2017 Cbc With Differential Ord2 Duval ABS# 1.1 K/ul 12/22/2017 Cbc With Differential Ord2 Eos ABS# 0.1 K/ul 12/22/2017 Cbc With Differential Ord2 Baso ABS# 0.0 K/ul 12/22/2017 Comp Metabolic Itg264 NA 141 mEq/L 12/22/2017 Comp Metabolic Jxw634 K 3.9 mEq/L 12/22/2017 Comp Metabolic Mei130 CL 99 mEq/L 12/22/2017 Comp Metabolic Cmc423 CO2 32.0 mEq/L 12/22/2017 Comp Metabolic Iql932 AN ION GAP 14 12/22/2017 Comp Metabolic Zco135 GL UCOSE 152 mg/dL 12/22/2017 Comp Metabolic Ccy392 Cr eat 1.0 mg/dL 12/22/2017 Comp Metabolic Beo262 eG FR 78 ml/min/1.73m2 12/22 Comp Metabolic Cyv545 BUN 27 mg/dL 12/22/2017 Comp Metabolic Fqm325 B/ C Ratio 27.8 Ratio 12/22/2017 Comp Metabolic Khx771 CA LCIUM 9.7 mg/dL 12/22/2017 Comp Metabolic Qre081 AL K PHOS 56 U/L 12/22/2017 Comp Metabolic Lva616 T(SGOT) 18 U/L 12/22/2017 Comp Metabolic Lbz012 AL T(SGPT) 20 U/L 12/22/2017 Comp Metabolic Lcz824 BI LI T 0.4 mg/dL 12/22/2017 Comp Metabolic Toq695 AL BUMIN 4.2 g/dL 12/22/2017 Comp Metabolic Eti105 TP RO 6.4 g/dL 12/22/2017 Comp Metabolic Hhk831 GL OB 2.2 g/dL 12/22/2017 Comp Metabolic Lxh675 A/ G Ratio 1.9 Ratio 12/22/2017 Comp Metabolic Huv503 Os mo 289 mOsmo 12/22/2017 %Hba1C Yek433 % HbA1c 34792-4 7.1 % 12/22/2017 %Hba1C Wvo409 Gluc Ave 157 mg/dL 12/22/2017 Cbc With [...] 93.3 fl 09/22/2017 Cbc With Differential Ord2 Duval% 8.4 % 09/22/2017 Cbc With Differential Ord2 [...] 1.83 K/ul 09/22/2017 Cbc With Differential Ord2 Duval ABS# 0.9 K/ul 09/22/2017 Cbc With Differential Ord2 Eos ABS# 0.0 K/ul 09/22/2017 Cbc With Differential Ord2 Baso ABS# 0.0 K/ul 09/22/2017 %Hba1C Ynx364 % HbA1c 29317-9 6.9 % 09/22/2017 %Hba1C Wfc584 Gluc Ave 151 mg/dL 09/22/2017 Tsh Ord6 [...] 31.6 pg 06/17/2017 Cbc With Differential Ord2 Duval% 11.1 % 06/17/2017 Cbc With Differential Ord2 [...] 2.35 K/ul 06/17/2017 Cbc With Differential Ord2 Duval ABS# 1.2 K/ul 06/17/2017 Cbc With Differential Ord2 Eos ABS# 0.1 K/ul 06/17/2017 Cbc With Differential Ord2 Baso ABS# 0.0 K/ul 06/17/2017 %Hba1C Iwd248 % HbA1c 22863-2 7.3 % 06/17/2017 %Hba1C Skz096 Gluc Ave 163 mg/dL 06/17/2017 Comp Metabolic Vnk531 NA 137 mEq/L 06/17/2017 Comp Metabolic Ula276 K 3.8 mEq/L 06/17/2017 Comp Metabolic Auw132 CL 98 mEq/L 06/17/2017 Comp Metabolic Nhq751 CO2 30.0 mEq/L 06/17/2017 Comp Metabolic Whq512 AN ION GAP 13 06/17/2017 Comp Metabolic Odl679 GL UCOSE 157 mg/dL 06/17/2017 Comp Metabolic Qzt519 Cr eat 1.0 mg/dL 06/17/2017 Comp Metabolic Nkn514 eG FR 76 ml/min/1.73m2 06/17 Comp Metabolic Yef003 BUN 18 mg/dL 06/17/2017 Comp Metabolic Vao371 B/ C Ratio 18.0 Ratio 06/17/2017 Comp Metabolic Apq946 CA LCIUM 9.8 mg/dL 06/17/2017 Comp Metabolic Oyl633 AL K PHOS 57 U/L 06/17/2017 Comp Metabolic Xug543 T(SGOT) 19 U/L 06/17/2017 Comp Metabolic Sfo859 AL T(SGPT) 23 U/L 06/17/2017 Comp Metabolic Dvn571 BI LI T 0.6 mg/dL 06/17/2017 Comp Metabolic Aqi627 AL BUMIN 4.4 g/dL 06/17/2017 Comp Metabolic Bql978 TP RO 6.8 g/dL 06/17/2017 Comp Metabolic Rlf751 GL OB 2.4 g/dL 06/17/2017 Comp Metabolic Qox482 A/ G Ratio 1.9 Ratio 06/17/2017 Comp Metabolic Zkw131 Os mo 279 mOsmo 06/17/2017 Review of [...] skin Location: scalp 10/08/2017 AK - right confucianism, mid fo rehead/scalp, left posterior neck - [...] skin Location: scalp 08/27/2017 [place] - right confucianism, mid fo rehead/scalp - cryotherapy to area, [...] VACC PRSV FREE I NC ANTIG CPT-4: 95939 06/24/2018 GLUC MONITOR CONT PH YS I&R CPT-4: 95152 01/27/2018 PPPS, SUBSEQ VISIT CPT- 4: G0439 01/21/2018 GLUCOSE MONITORING CONT CPT-4: 06529 01/06/2018 ADMIN INFLUENZA VIRU S VAC CPT-4: G0008 06/09/2017 FLU VACC PRSV FREE I NC ANTIG CPT-4: 13444 06/09/2017 Vital Signs Date Vital 06/22/2018 Blood Pressure 1: 144/86 Code: 8480-6 BMI: 36.0 Code: 06852-4 Heart Rate 1: 74 bpm Height: 5'8" SpO2: 98% Weight: 237 lbs 05/14/2018 Blood Pressure 1: 132/72 Code: 8480-6 Height: Weight: 04/27/2018 Blood Pressure 1: 148/78 Code: 8480-6 BMI: 35.6 Code: 41169-8 Heart Rate 1: 77 bpm Height: 5'8" SpO2: 97% Weight: 234 lbs 04/03/2018 Blood Pressure 1: 156/80 Code: 8480-6 BMI: 35.4 Code: 45768-4 Heart Rate 1: 70 bpm Height: 5'8" SpO2: 97% Weight: 233 lbs 01/27/2018 BMI: 35.6 Code: 82351-8 Heart Rate 1: 86 bpm Height: 5'8" SpO2: 98% Weight: 234 lbs 01/21/2018 Heigh t: Weight: 01/06/2018 Heigh t: Weight: 12/31/2017 Blood Pressure 1: 140/86 Code: 8480-6 BMI: 34.2 Code: 50758-0 Heart Rate 1: 80 bpm Height: 5'8" SpO2: 98% Weight: 225 lbs 10/08/2017 Blood Pressure 1: 152/74 Code: 8480-6 BMI: 34.2 Code: 06815-2 Heart Rate 1: 67 bpm Height: 5'8" SpO2: 98% Weight: 225 lbs 08/27/2017 Blood Pressure 1: 144/82 Code: 8480-6 BMI: 34.2 Code: 17187-1 Heart Rate 1: 70 bpm Height: 5'8" SpO2: 98% Weight: 225 lbs 06/10/2017 Blood Pressure 1: 150/84 Code: 8480-6 BMI: 35.0 Code: 57850-2 Heart Rate 1: 67 bpm Height: 5'8" SpO2: 98% Weight: 230 lbs 05/20/2017 Blood Pressure 1: 146/76 Code: 8480-6 BMI: 35.3 Code: 43176-1 Heart Rate 1: 70 bpm Height: 5'8" [...] Encounters Encounter Performer Loca tion Codes Date 15720 EST. PATIENT, LEVEL III Diagnosis: Type 2 diabetes mellitus with hyperglycemia[ICD10: E11.65] Laney Guerrero MD, [facility] CPT-4: 94536 06/22/2018 80093 EST. PATIENT, LEVEL IV Diagnosis: Diplopia[ICD10: H53.2] Diagnosis: Other specified anemias[ICD10: D64.89] Laney Guerrero MD, [facility] CPT-4: 35632 05/14/2018 41531 EST. PATIENT, LEVEL III Diagnosis: Benign paroxysmal vertigo, bilateral[ICD10: H81.13] Diagnosis: Other allergic rhinitis[ICD10: J30.89] Laney Guerrero MD, [facility] CPT-4: 26317 04/27/2018 00886 EST. PATIENT, LEVEL III Diagnosis: Type 2 diabetes mellitus with hyperglycemia[ICD10: E11.65] Diagnosis: Other fatigue[ICD10: R53.83] Diagnosis: Other malaise[ICD10: R53.81] Diagnosis: Bitten or stung by nonvenomous insect and other nonvenomous arthropods, initial encounter[ICD10: W57.XXXA] Diagnosis: Cellulitis of right upper limb[ICD10: L03.113] Diagnosis: Mixed hyperlipidemia[ICD10: E78.2] Laney Guerrero MD, [facility] CPT-4: 53283 04/03/2018 ([id number]) 17433 EST. P ATIENT, LEVEL III Diagnosis: Type 2 diabetes mellitus with hyperglycemia[ICD10: E11.65] Laney Guerrero MD, [facility] CPT-4: 65673 01/27/2018 ([id number]) Miscellaneou s no charge Diagnosis: Type 2 diabetes mellitus with hyperglycemia[ICD10: E11.65] Laney Guerrero MD, [facility] CPT-4: 13666 01/13/2018 10300 EST. PATIENT, LEVEL III Diagnosis: Type 2 diabetes mellitus with hyperglycemia[ICD10: E11.65] Diagnosis: Essential (primary) hypertension[ICD10: I10] Diagnosis: Mixed hyperlipidemia[ICD10: E78.2] Laney Guerrero MD, [facility] CPT-4: 82048 12/31/2017 55838 EST. PATIENT, LEVEL III Diagnosis: Type 2 diabetes mellitus with hyperglycemia[ICD10: E11.65] Diagnosis: Essential (primary) hypertension[ICD10: I10] Diagnosis: Mixed hyperlipidemia[ICD10: E78.2] Diagnosis: Actinic keratosis[ICD10: L57.0] Laney Guerrero MD, [facility] CPT-4: 49304 10/08/2017 55995 EST. PATIENT, LEVEL III Diagnosis: Type 2 diabetes mellitus with hyperglycemia[ICD10: E11.65] Diagnosis: Essential (primary) hypertension[ICD10: I10] Diagnosis: Mixed hyperlipidemia[ICD10: E78.2] Diagnosis: Actinic keratosis[ICD10: L57.0] Laney Guerrero MD, [facility] CPT-4: 73714 08/27/2017 19672 EST. PATIENT, LEVEL III Diagnosis: Type 2 diabetes mellitus with hyperglycemia[ICD10: E11.65] Diagnosis: Essential (primary) hypertension[ICD10: I10] Diagnosis: Mixed hyperlipidemia[ICD10: E78.2] [facility] CPT-4: 48954 06/25/2017 ([id number] 64166 EST. 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 06/22/2018 Appointment: Laney Luther WPtel: [address] [place], [place] [id number] (15 min) Moderate 06/22/2018 Patient Education: Patient Medication Summary Completed 06/22/2018 Patient Education: Diabetes Completed 06/22/2018 Care Plan: Referral Order SNOMED-CT : [id number] Pending 06/22/2018 [id number] Referral Initiated 06/02/2018 Appointment: Nurse Visit 05/18/2018 [...] or concerns. 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 04/03/2018 [facility] [phone] [facility] ([facility] min) Moderate 04/03/2018 Patient Education: Patient Medication Summary Completed 04/03/2018 App[facility]ment: [facility] [phone] [facility] (30 min) Complex 03/31/2018 Patient Education: [...] control. 01/27/2018 Appointment: [facility] Luther [facility] [phone] [facility] [place] (30 min) Complex 01/27/2018 Patient [...] Summary Completed 01/21/2018 Appointment: Laney Luther WPtel: [address] [place], [place] [id number] (15 min) Moderate 01/13/2018 Patient Education: Patient [...] control. 01/06/2018 App[facility]ment: [facility] [phone] [facility] (15 min) Moderate 01/06/2018 Patient Education: [...] to medications. 12/31/2017 [facility]ment: [facility] [phone] [facility] (30 min) Complex 12/31/2017 Patient Education: [...] acute concerns. 10/08/2017 Appointment: Laney Lutherl: [phone] [facility] (30 min) Complex 10/08/2017 Patient Education: Patient Medication Summary Completed 10/08/2017 [facility]ment: [facility]y Luther[facility] [address] [facility] (15 min) Moderate 10/07/2017 Visit Plan: [...] concerns. 08/27/2017 Appointment: [facility] Luther [facility]Ptel[facility] [phone] [facility] (30 min) Complex 08/27/2017 Patient Education: [...] medications. 06/25/2017 Appointment: [facility] Luther [facility]Ptel[facility] [phone] [facility] (30 min) Complex 06/25/2017 Patient Education: Patient Medication Summary Completed 06/25/2017 [facility]ment: [facility]el[facility] [phone] [phone] (30 min) Complex 06/24/2017 Visit Plan: [...] medications. 06/10/2017 App[facility]ment: [facility] [phone] [facility] (30 min) Complex 06/10/2017 Patient Education: [...] glucose control. 05/20/2017 Appointment: Lane[facility] Luther [facility]Ptel[facility] [phone] [facility] New Patient 05/20/2017 Patient Education: Patient Medication Summary Completed 05/20/2017 [facility] [place] Referral Initiated Referral: Kevin Cuevas Referral [...] further instructions/medication interventions. GET RECENT [facility]S FROM [facility] [...]
--- OUTSIDE RECORDS SUMMARY | 2020-02-09 07:24 | XMS REPORT | CCD ---
Author Author Gunnar Luther Organization Karo Guerrero MD, [facility] Address [address] [place] [address] Phone Care Team Providers Care Twill Cutter Name Role Phone PP Unavailable CCM Unavailable Summary Purpose Interface Exchange Insurance Providers Payer name Policy type / Coverage type Covered democrat ID Effective Begin Date Effective End Date WPS Medicare Part B Medicare Part B [id number] Unknown Aetna Medicare Part B AH [id number] Unknown Cigna Medicare Part B 80 [id number] Unknown Family history Sister Diagnosis Age At [...] ed reddy 05/20/[address]: 482725077 Never smoker 05/20/[address]: 145121516 Never drinks alcohol 05/20/2017 Allergies, Adverse Reactions, [...] Fill Instructions Zyrtec 10 mg tablet RxNorm: 2406434 1 Tablet(s) PO daily 04/27/2018 05/26/2018 Inactive doxycycline hyclate 100 mg capsule RxNorm: 4732065 1 Capsule(s) PO BID 04/03/2018 04/12/2018 In active meclizine 25 mg tablet RxNorm: 879854 1 Tablet(s) PO TID as needed Dizziness 04/03/2018 04/07/2018 In active metformin ER 750 mg tablet,extended release 24 hr RxNorm: 173873 2 TABLET(S) PO DAILY 02/03/2018 06/02/2018 Inactive glimepiride 2 mg tablet RxNorm: 448480 TAKE 1 TABLET BY MOUTH TWICE DAILY FOR D IABETES 01/13/2018 04/07/2019 Active glimepiride 2 mg tablet RxNorm: 639568 TAKE 1 TABLET BY MOUTH TWICE DAILY FOR D IABETES 01/11/2018 01/05/2019 Active diltiazem CD 360 mg capsule,extended release 24 hr RxNorm: 241179 1 CAPSULE(S) PO QHS 01/02/2018 12/27/2018 Ac tive atenolol 50 mg-chlor thalidone 25 mg tablet RxNorm: 443099 1 Tablet(s) PO daily 12/18/2017 12/12/2018 Ac tive PLEASE SEND REFILL REQUESTS ELECTRONICAL LY Tradjenta 5 mg tablet RxNorm: 7427880 TAKE 1 TABLET BY MOUTH DAILY 12/15/2017 05/13/2018 In active metformin ER 750 mg tablet,extended release 24 hr RxNorm: 271013 2 TABLET(S) PO DAILY 11/05/2017 02/02/2018 Inactive metformin ER 750 mg tablet,extended release 24 hr RxNorm: 282777 2 TABLET(S) PO DAILY 11/03/2017 02/02/2018 Inactive atorvastatin 20 mg t ablet RxNorm: 605606 TAKE 1 TABLET BY MOUT H EVERY NIGHT AT BEDTIME FOR CHOLESTEROL 08/28/2017 08/22/2018 Active Zithromax Z-Maury 250 mg tablet RxNorm: 942138 1 Tablet(s) PO UD 08/15/2017 04/13/2018 Inactive Tamiflu 75 mg capsule RxNorm: 528944 1 Capsule(s) PO BID 08/15/2017 08/14/2017 Inactive Tamiflu 75 mg capsule RxNorm: 057784 1 Capsule(s) PO BID 08/15/2017 08/19/2017 Inactive Tradjenta 5 mg tablet RxNorm: 1563211 TAKE 1 TABLET BY MOUTH DAILY 08/12/2017 12/09/2017 In active metformin ER 750 mg tablet,extended release 24 hr RxNorm: 944893 TAKE 2 TABLET BY MOUT H ONCE A DAY DIRECTED 08/08/2017 No Stop Date Active SAVINGS FOR NON-COVERED MEDICATIONS Claims: BIN: [id number], PCN: [id number], GROUP: [id number], Patient ID: [id number] Phone; Questions: Your[facility] [phone] metformin ER 750 mg tablet,extended release 24 hr RxNorm: 753304 2 Tablet(s) PO daily 08/07/2017 08/06/2017 Inactive metformin ER 750 mg tablet,extended release 24 hr RxNorm: 027210 2 Tablet(s) PO daily 08/07/2017 11/02/2017 Inactive glimepiride 2 mg tablet RxNorm: 147508 TAKE 1 TABLET BY MOUTH TWICE DAILY FOR D IABETES 07/18/2017 01/10/2018 Inactive diltiazem CD 360 mg capsule,extended release 24 hr RxNorm: 445544 1 Capsule(s) PO QHS 07/03/2017 12/29/2017 Inactive One Touch Test strips RxNorm: 1 Miscellaneous daily 05/30/2017 06/28/2017 Inactive One Touch Test strips RxNorm: 1 Miscellaneous daily 05/30/2017 05/29/2017 Inactive iron gluconate-B cmp lx-potassium iodide-minerals oral RxNorm: 30085 oral No Start Date Active Super B Complex 100 tablet RxNorm: 1 Tablet(s) PO daily No Start Date Active Glucosamine Chondroi tin Maximum Strength oral RxNorm: 4845 oral No Start Date Active garlic 1,000 mg capsule RxNorm: 821004 1 Capsule(s) PO BID No Start Date Active vitamin E (dl, aceta te) 400 unit capsule RxNorm: 088622 1 Capsule(s) PO daily No Start Date Active beta carotene 25,000 unit tablet RxNorm: 847889 1 Tablet(s) PO daily No Start Date Active rutin 500 mg tablet RxNorm: 824547 1/2 Tablet(s) PO daily No Start Date Active Calcium 600 + [place] ls oral RxNorm: 921263 oral No S tart Date Active Vitamin D3 1,000 uni t tablet RxNorm: 821975 1 Tablet(s) PO daily No Start Date Active Vitamin C 500 mg tablet RxNorm: 859286 1 Tablet(s) PO daily No Start Date Active acidophilus 25 susanne on cell-pectin, citrus 100 mg tablet RxNorm: 740865 1 Tablet(s) PO BID No Start Date Active Zinc and C oral RxNorm: oral No Start Date Active aspirin 81 mg chewab le tablet RxNorm: 475081 1 Tablet(s) PO QPM No Start Date Active Zegerid OTC 20 mg-1. 1 gram capsule RxNorm: 590464 1 Capsule(s) PO daily No Start Date Active magnesium 250 mg tablet RxNorm: 1 Tablet(s) PO daily No Start Date Active flaxseed oil 1,000 m g capsule RxNorm: 077448 1 Capsule(s) PO BID No Start Date Active milk thistle 175 mg tablet RxNorm: 127124 1 Tablet(s) PO daily No Start Date Active metformin ER 750 mg tablet,extended release 24 hr RxNorm: 869261 2 Tablet(s) PO daily No Start Date 08/06/2017 Inactive atorvastatin 20 mg t ablet RxNorm: 193668 1 Tablet(s) PO daily No Start Date 08/27/2017 Inactive Tradjenta 5 mg tablet RxNorm: 3405741 1 Tablet(s) PO daily No Start Date 08/11/2017 Inactive diltiazem ER 300 mg tablet,extended release 24 hr RxNorm: 824104 1 Tablet(s) PO daily No Start Date 05/18/2017 Inactive glimepiride 2 mg tablet RxNorm: 243223 1 Tablet(s) PO BID No Start Date 07/17/2017 Inactive Zithromax Z-Maury 250 mg tablet RxNorm: 955563 1 Tablet(s) PO UD No Start Date 08/14/2017 Inactive atenolol 50 mg-chlor thalidone 25 mg tablet RxNorm: 650500 1 Tablet(s) PO daily No Start Date 12/17/2017 Inactive diltiazem CD 360 mg capsule,extended release 24 hr RxNorm: 705845 1 Capsule(s) PO QHS No Start Date [...] 22.7 % 05/14/2018 Cbc With Differential Ord2 [place]% 12.2 % 05/14/2018 Cbc With Differential Ord2 [...] 1.81 K/ul 05/14/2018 Cbc With Differential Ord2 [place] ABS# 1.0 K/ul 05/14/2018 Cbc With Differential Ord2 Eos ABS# 0.1 K/ul 05/14/2018 Cbc With Differential Ord2 Baso ABS# 0.0 K/ul 05/14/2018 Ehrlichia Chaffeensis Antibody Igm [id number] EHRLICHIA CHAFFEENSIS IGM < 1:16 04/09/2018 Ehrlichia Chaffeensis Antibody Igg 821320 EHRLICHIA CHAFFEENSIS IGG 1:64 04/09/2018 Grawn Spotted Fever Igg/Igm 24290 3 LOTUS MT SPOTTED FEVER IGM EIA . 04/09/2018 Grawn Spotted Fever Igg/Igm 10760 3 RMSF, IGM 0.36 index 04/09/2018 [place]wn Spotted Fever Igg/Igm 24363 3 LOTUS MT SPOTTED FEVER IGG EIA FLEX . 04/09/2018 Grawn Spotted Fever Igg/Igm 60581 3 RMSF, IGG SCREEN-FLEX Negative 04/09/2018 Lymes Disease Total Antibodies With Western Blot Refle x [id number] B. BURGDORFERI, IGG/IGM 0.31 04/07/2018 Lymes Disease Total Antibodies With Western Blot Refle x [id number] INTERPRETATION 04/07/2018 %Hba1C Fhz704 % HbA1c 32848-0 7.2 % 03/31/2018 %Hba1C Uyz500 Gluc Ave 160 mg/dL 03/31/2018 Lipid Ord30 [...] 22.4 % 12/22/2017 Cbc With Differential Ord2 [place]% 11.5 % 12/22/2017 Cbc With Differential Ord2 [...] 2.16 K/ul 12/22/2017 Cbc With Differential Ord2 [place] ABS# 1.1 K/ul 12/22/2017 Cbc With Differential Ord2 Eos ABS# 0.1 K/ul 12/22/2017 Cbc With Differential Ord2 Baso ABS# 0.0 K/ul 12/22/2017 Comp Metabolic Gzz738 NA 141 mEq/L 12/22/2017 Comp Metabolic Idw255 K 3.9 mEq/L 12/22/2017 Comp Metabolic Cfz099 CL 99 mEq/L 12/22/2017 Comp Metabolic Zvm325 CO2 32.0 mEq/L 12/22/2017 Comp Metabolic Owe828 AN ION GAP 14 12/22/2017 Comp Metabolic Evl778 GL UCOSE 152 mg/dL 12/22/2017 Comp Metabolic Spe633 Cr eat 1.0 mg/dL 12/22/2017 Comp Metabolic Uil925 eG FR 78 ml/min/1.73m2 12/22 Comp Metabolic Xqz036 BUN 27 mg/dL 12/22/2017 Comp Metabolic Svh962 B/ C Ratio 27.8 Ratio 12/22/2017 Comp Metabolic Uxh394 CA LCIUM 9.7 mg/dL 12/22/2017 Comp Metabolic Zrj475 AL K PHOS 56 U/L 12/22/2017 Comp Metabolic Mud688 T(SGOT) 18 U/L 12/22/2017 Comp Metabolic Dee754 AL T(SGPT) 20 U/L 12/22/2017 Comp Metabolic Dna456 BI LI T 0.4 mg/dL 12/22/2017 Comp Metabolic Izj770 AL BUMIN 4.2 g/dL 12/22/2017 Comp Metabolic Wvv702 TP RO 6.4 g/dL 12/22/2017 Comp Metabolic Jyt773 GL OB 2.2 g/dL 12/22/2017 Comp Metabolic Lmg120 A/ G Ratio 1.9 Ratio 12/22/2017 Comp Metabolic Spb860 Os mo 289 mOsmo 12/22/2017 %Hba1C Vip686 % HbA1c 58277-2 7.1 % 12/22/2017 %Hba1C Rft756 Gluc Ave 157 mg/dL 12/22/2017 Cbc With [...] 93.3 fl 09/22/2017 Cbc With Differential Ord2 [place]% 8.4 % 09/22/2017 Cbc With Differential Ord2 [...] 1.83 K/ul 09/22/2017 Cbc With Differential Ord2 [place] ABS# 0.9 K/ul 09/22/2017 Cbc With Differential Ord2 Eos ABS# 0.0 K/ul 09/22/2017 Cbc With Differential Ord2 Baso ABS# 0.0 K/ul 09/22/2017 %Hba1C Hpr754 % HbA1c 32120-4 6.9 % 09/22/2017 %Hba1C Oin220 Gluc Ave 151 mg/dL 09/22/2017 Tsh Ord6 [...] 31.6 pg 06/17/2017 Cbc With Differential Ord2 [place]% 11.1 % 06/17/2017 Cbc With Differential Ord2 [...] 2.35 K/ul 06/17/2017 Cbc With Differential Ord2 [place] ABS# 1.2 K/ul 06/17/2017 Cbc With Differential Ord2 Eos ABS# 0.1 K/ul 06/17/2017 Cbc With Differential Ord2 Baso ABS# 0.0 K/ul 06/17/2017 %Hba1C Mqq001 % HbA1c 60712-6 7.3 % 06/17/2017 %Hba1C Efh044 Gluc Ave 163 mg/dL 06/17/2017 Comp Metabolic Olp213 NA 137 mEq/L 06/17/2017 Comp Metabolic Vjz698 K 3.8 mEq/L 06/17/2017 Comp Metabolic Fsg760 CL 98 mEq/L 06/17/2017 Comp Metabolic Meb232 CO2 30.0 mEq/L 06/17/2017 Comp Metabolic Cbi913 AN ION GAP 13 06/17/2017 Comp Metabolic Suq046 GL UCOSE 157 mg/dL 06/17/2017 Comp Metabolic Yjr818 Cr eat 1.0 mg/dL 06/17/2017 Comp Metabolic Hyr100 eG FR 76 ml/min/1.73m2 06/17 Comp Metabolic Ord953 BUN 18 mg/dL 06/17/2017 Comp Metabolic Fte662 B/ C Ratio 18.0 Ratio 06/17/2017 Comp Metabolic Cud686 CA LCIUM 9.8 mg/dL 06/17/2017 Comp Metabolic Ghr921 AL K PHOS 57 U/L 06/17/2017 Comp Metabolic Pxr538 T(SGOT) 19 U/L 06/17/2017 Comp Metabolic Qva470 AL T(SGPT) 23 U/L 06/17/2017 Comp Metabolic Dtm691 BI LI T 0.6 mg/dL 06/17/2017 Comp Metabolic Hkm867 AL BUMIN 4.4 g/dL 06/17/2017 Comp Metabolic Iqz246 TP RO 6.8 g/dL 06/17/2017 Comp Metabolic Bpb371 GL OB 2.4 g/dL 06/17/2017 Comp Metabolic Mtp261 A/ G Ratio 1.9 Ratio 06/17/2017 Comp Metabolic Gfr903 Os mo 279 mOsmo 06/17/2017 Review of [...] skin Location: scalp 10/08/2017 [place] - right druze, mid fo rehead/scalp, left posterior neck - [...] skin Location: scalp 08/27/2017 [place] - right druze, mid fo rehead/scalp - cryotherapy to area, [...] VACC PRSV FREE I NC ANTIG CPT-4: 25429 06/24/2018 GLUC MONITOR CONT PH YS I&R CPT-4: 34297 01/27/2018 PPPS, SUBSEQ VISIT CPT- 4: G0439 01/21/2018 GLUCOSE MONITORING CONT CPT-4: 93832 01/06/2018 ADMIN INFLUENZA VIRU S VAC CPT-4: G0008 06/09/2017 FLU VACC PRSV FREE I NC ANTIG CPT-4: 24245 06/09/2017 Vital Signs Date Vital 06/22/2018 Blood Pressure 1: 144/86 Code: 8480-6 BMI: 36.0 Code: 46824-2 Heart Rate 1: 74 bpm Height: 5'8" SpO2: 98% Weight: 237 lbs 05/14/2018 Blood Pressure 1: 132/72 Code: 8480-6 Height: Weight: 04/27/2018 Blood Pressure 1: 148/78 Code: 8480-6 BMI: 35.6 Code: 32444-0 Heart Rate 1: 77 bpm Height: 5'8" SpO2: 97% Weight: 234 lbs 04/03/2018 Blood Pressure 1: 156/80 Code: 8480-6 BMI: 35.4 Code: 35582-8 Heart Rate 1: 70 bpm Height: 5'8" SpO2: 97% Weight: 233 lbs 01/27/2018 BMI: 35.6 Code: 84987-4 Heart Rate 1: 86 bpm Height: 5'8" SpO2: 98% Weight: 234 lbs 01/21/2018 Heigh t: Weight: 01/06/2018 Heigh t: Weight: 12/31/2017 Blood Pressure 1: 140/86 Code: 8480-6 BMI: 34.2 Code: 98074-2 Heart Rate 1: 80 bpm Height: 5'8" SpO2: 98% Weight: 225 lbs 10/08/2017 Blood Pressure 1: 152/74 Code: 8480-6 BMI: 34.2 Code: 20016-8 Heart Rate 1: 67 bpm Height: 5'8" SpO2: 98% Weight: 225 lbs 08/27/2017 Blood Pressure 1: 144/82 Code: 8480-6 BMI: 34.2 Code: 98199-0 Heart Rate 1: 70 bpm Height: 5'8" SpO2: 98% Weight: 225 lbs 06/10/2017 Blood Pressure 1: 150/84 Code: 8480-6 BMI: 35.0 Code: 26445-7 Heart Rate 1: 67 bpm Height: 5'8" SpO2: 98% Weight: 230 lbs 05/20/2017 Blood Pressure 1: 146/76 Code: 8480-6 BMI: 35.3 Code: 71867-9 Heart Rate 1: 70 bpm Height: 5'8" [...] Encounters Encounter Performer Loca tion Codes Date 26222 EST. PATIENT, LEVEL III Diagnosis: Type 2 diabetes mellitus with hyperglycemia[ICD10: E11.65] Laney Guerrero MD, [facility] CPT-4: 46284 06/22/2018 84064 EST. PATIENT, LEVEL IV Diagnosis: Diplopia[ICD10: H53.2] Diagnosis: Other specified anemias[ICD10: D64.89] Laney Guerrero MD, [facility] CPT-4: 70313 05/14/2018 04253 EST. PATIENT, LEVEL III Diagnosis: Benign paroxysmal vertigo, bilateral[ICD10: H81.13] Diagnosis: Other allergic rhinitis[ICD10: J30.89] Laney Guerrero MD, [facility] CPT-4: 00456 04/27/2018 21273 EST. PATIENT, LEVEL III Diagnosis: Type 2 diabetes mellitus with hyperglycemia[ICD10: E11.65] Diagnosis: Other fatigue[ICD10: R53.83] Diagnosis: Other malaise[ICD10: R53.81] Diagnosis: Bitten or stung by nonvenomous insect and other nonvenomous arthropods, initial encounter[ICD10: W57.XXXA] Diagnosis: Cellulitis of right upper limb[ICD10: L03.113] Diagnosis: Mixed hyperlipidemia[ICD10: E78.2] Laney Guerrero MD, [facility] CPT-4: 02479 04/03/2018 ([id number]) 41785 EST. P ATIENT, LEVEL III Diagnosis: Type 2 diabetes mellitus with hyperglycemia[ICD10: E11.65] Laney Guerrero MD, [facility] CPT-4: 02983 01/27/2018 ([id number]) Miscellaneou s no charge Diagnosis: Type 2 diabetes mellitus with hyperglycemia[ICD10: E11.65] Laney Guerrero MD, [facility] CPT-4: 04490 01/13/2018 12716 EST. PATIENT, LEVEL III Diagnosis: Type 2 diabetes mellitus with hyperglycemia[ICD10: E11.65] Diagnosis: Essential (primary) hypertension[ICD10: I10] Diagnosis: Mixed hyperlipidemia[ICD10: E78.2] Laney Guerrero MD, [facility] CPT-4: 73670 12/31/2017 60599 EST. PATIENT, LEVEL III Diagnosis: Type 2 diabetes mellitus with hyperglycemia[ICD10: E11.65] Diagnosis: Essential (primary) hypertension[ICD10: I10] Diagnosis: Mixed hyperlipidemia[ICD10: E78.2] Diagnosis: Actinic keratosis[ICD10: L57.0] Laney Guerrero MD, [facility] CPT-4: 02625 10/08/2017 55602 EST. PATIENT, LEVEL III Diagnosis: Type 2 diabetes mellitus with hyperglycemia[ICD10: E11.65] Diagnosis: Essential (primary) hypertension[ICD10: I10] Diagnosis: Mixed hyperlipidemia[ICD10: E78.2] Diagnosis: Actinic keratosis[ICD10: L57.0] Laney Guerrero MD, [facility] CPT-4: 15561 08/27/2017 01837 EST. PATIENT, LEVEL III Diagnosis: Type 2 diabetes mellitus with hyperglycemia[ICD10: E11.65] Diagnosis: Essential (primary) hypertension[ICD10: I10] Diagnosis: Mixed hyperlipidemia[ICD10: E78.2] [facility] CPT-4: 66157 06/25/2017 ([id number] 54343 EST. 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 06/22/2018 Appointment: Laney Luther WPtel: [address] [place], [place] [id number] (15 min) Moderate 06/22/2018 Patient Education: Patient Medication Summary Completed 06/22/2018 Patient Education: Diabetes Completed 06/22/2018 Care Plan: Referral Order SNOMED-CT : 887322016 Pending 06/22/2018 [id number] [facility] Initiated 06/02/2018 Appointment: Nurse Visit [...] or concerns. 05/14/2018 Appointment: Laney Luther WPtel: [address] [place], [place] [id number] (15 min) Moderate 05/14/2018 Patient Education: Patient [...] 04/27/2018 Care Plan: Referral Order SNOMED-CT : 370812620 Pending 04/27/2018 Visit Plan: Diabetes Mellitus - [...] months for follow up on the patient's requisition approver gumaro medical problem and to assure normal liver response to medications. 04/03/2018 [facility]ment[facility] [phone] [phone] ([facility] min) Moderate 04/03/2018 Patient Education: Patient Medication Summary Completed 04/03/2018 [facility]ment: [facility] [phone] [phone] (30 min) Complex 03/31/2018 Patient Education: [...] control. 01/27/2018 Appointment: [facility] [phone] [phone] [place] (30 min) Complex 01/27/2018 Patient [...] Summary Completed 01/21/2018 Appointment: Laney Luther WPtel: [address] [place], [place] [id number] (15 min) Moderate 01/13/2018 Patient Education: Patient [...] control. 01/06/2018 [facility]ment[facility] [phone] [phone] (15 min) Moderate 01/06/2018 Patient Education: [...] to medications. 12/31/2017 [facility]ment: [facility] [phone] [phone] (30 min) Complex 12/31/2017 Patient Education: [...] acute concerns. 10/08/2017 Appointment: Laney Lutherl: [phone] [facility] (30 min) Complex 10/08/2017 Patient Education: Patient Medication Summary Completed 10/08/2017 [facility]ment[facility] [phone] [phone] (15 min) Moderate 10/07/2017 Visit Plan: [...] concerns. 08/27/2017 Appointment: [facility] [phone] [phone] (30 min) Complex 08/27/2017 Patient Education: [...] medications. 06/25/2017 Appointment: [facility] [phone] [phone] (30 min) Complex 06/25/2017 Patient Education: Patient Medication Summary Completed 06/25/2017 [facility]ment: [facility] [phone] [phone] (30 min) Complex 06/24/2017 Visit Plan: [...] medications. 06/10/2017 App[facility]ment: [facility] [phone] [phone] (30 min) Complex 06/10/2017 Patient Education: [...] glucose control. 05/20/2017 Appointment: [facility] Luther [facility] [phone] [phone] New Patient 05/20/2017 Patient Education: Patient Medication Summary Completed 05/20/2017 [facility] [place] Referral Initiated Referral: Kevin Cuevas [...] further instructions/medication interventions. GET RECENT LABS FROM [facility] FASTING LABS NEXT WEEK UNLESS WE [...]
--- OUTSIDE RECORDS SUMMARY | 2020-02-09 07:24 | XMS REPORT | CCD ---
Author Author Gunnar Luther Organization Karo Guerrero MD, [facility] Address [address] [place] [address] Phone Care Team Providers Care Wire Spooler Name Role Phone PP Unavailable CCM Unavailable Summary Purpose Interface Exchange Insurance Providers Payer name Policy type / Coverage type Covered green party ID Effective Begin Date Effective End Date WPS Medicare Part B Medicare Part B [id number] Unknown Aetna Medicare Part B AH [id number] Unknown Cigna Medicare Part B 80 [id number] Unknown Family history Sister Diagnosis Age At [...] ed reddy 05/20/[address]: 794270363 Never smoker 05/20/[address]: 432420454 Never drinks alcohol 05/20/2017 Allergies, Adverse Reactions, [...] ICD-9: 401.1 ICD-10: I10 Active 05/20/2017 Unknown Encounter for immuni zation ICD-9: V04.81 ICD-10: Z23 Active 06/09/2017 Unknown Problems Condition Codes Effectiv e Dates [...] hypertension ICD-9: 401.1 ICD-10: I10 05/20/2017 Active Encounter for immuni zation ICD-9: V04.81 ICD-10: Z23 06/09/2017 Active Medications Medication Codes Instruc tions Start Date Stop Date Sta tus Fill Instructions Zyrtec 10 mg tablet RxNorm: 1058556 1 Tablet(s) PO daily 04/27/2018 05/26/2018 Inactive doxycycline hyclate 100 mg capsule RxNorm: 3046002 1 Capsule(s) PO BID 04/03/2018 04/12/2018 In active meclizine 25 mg tablet RxNorm: 892247 1 Tablet(s) PO TID as needed Dizziness 04/03/2018 04/07/2018 In active metformin ER 750 mg tablet,extended release 24 hr RxNorm: 711594 2 TABLET(S) PO DAILY 02/03/2018 06/02/2018 Inactive glimepiride 2 mg tablet RxNorm: 289920 TAKE 1 TABLET BY MOUTH TWICE DAILY FOR D IABETES 01/13/2018 04/07/2019 Active glimepiride 2 mg tablet RxNorm: 086156 TAKE 1 TABLET BY MOUTH TWICE DAILY FOR D IABETES 01/11/2018 01/05/2019 Active diltiazem CD 360 mg capsule,extended release 24 hr RxNorm: 107676 1 CAPSULE(S) PO QHS 01/02/2018 12/27/2018 Ac tive atenolol 50 mg-chlor thalidone 25 mg tablet RxNorm: 501892 1 Tablet(s) PO daily 12/18/2017 12/12/2018 Ac tive PLEASE SEND REFILL REQUESTS ELECTRONICAL LY Tradjenta 5 mg tablet RxNorm: 6963727 TAKE 1 TABLET BY MOUTH DAILY 12/15/2017 05/13/2018 In active metformin ER 750 mg tablet,extended release 24 hr RxNorm: 328457 2 TABLET(S) PO DAILY 11/05/2017 02/02/2018 Inactive metformin ER 750 mg tablet,extended release 24 hr RxNorm: 409543 2 TABLET(S) PO DAILY 11/03/2017 02/02/2018 Inactive atorvastatin 20 mg t ablet RxNorm: 922466 TAKE 1 TABLET BY MOUT H EVERY NIGHT AT BEDTIME FOR CHOLESTEROL 08/28/2017 08/22/2018 Active Zithromax Z-Maury 250 mg tablet RxNorm: 190126 1 Tablet(s) PO UD 08/15/2017 04/13/2018 Inactive Tamiflu 75 mg capsule RxNorm: 227943 1 Capsule(s) PO BID 08/15/2017 08/14/2017 Inactive Tamiflu 75 mg capsule RxNorm: 232269 1 Capsule(s) PO BID 08/15/2017 08/19/2017 Inactive Tradjenta 5 mg tablet RxNorm: 4838231 TAKE 1 TABLET BY MOUTH DAILY 08/12/2017 12/09/2017 In active metformin ER 750 mg tablet,extended release 24 hr RxNorm: 745487 TAKE 2 TABLET BY MOUT H ONCE A DAY DIRECTED 08/08/2017 No Stop Date Active SAVINGS FOR NON-COVERED MEDICATIONS Claims: BIN: [id number], PCN: [id number], GROUP: [id number], Patient ID: [id number] Phone; Questions: [facility] [phone] metformin ER 750 mg tablet,extended release 24 hr RxNorm: 313085 2 Tablet(s) PO daily 08/07/2017 08/06/2017 Inactive metformin ER 750 mg tablet,extended release 24 hr RxNorm: 777395 2 Tablet(s) PO daily 08/07/2017 11/02/2017 Inactive glimepiride 2 mg tablet RxNorm: 161845 TAKE 1 TABLET BY MOUTH TWICE DAILY FOR D IABETES 07/18/2017 01/10/2018 Inactive diltiazem CD 360 mg capsule,extended release 24 hr RxNorm: 403786 1 Capsule(s) PO QHS 07/03/2017 12/29/2017 Inactive One Touch Test strips RxNorm: 1 Miscellaneous daily 05/30/2017 06/28/2017 Inactive One Touch Test strips RxNorm: 1 Miscellaneous daily 05/30/2017 05/29/2017 Inactive iron gluconate-B cmp lx-potassium iodide-minerals oral RxNorm: 79649 oral No Start Date Active Super B Complex 100 tablet RxNorm: 1 Tablet(s) PO daily No Start Date Active Glucosamine Chondroi tin Maximum Strength oral RxNorm: 4845 oral No Start Date Active garlic 1,000 mg capsule RxNorm: 350264 1 Capsule(s) PO BID No Start Date Active vitamin E (dl, aceta te) 400 unit capsule RxNorm: 424069 1 Capsule(s) PO daily No Start Date Active beta carotene 25,000 unit tablet RxNorm: 486526 1 Tablet(s) PO daily No Start Date Active rutin 500 mg tablet RxNorm: 711436 1/2 Tablet(s) PO daily No Start Date Active Calcium 600 + Min[place] ls oral RxNorm: 998995 oral No S tart Date Active Vitamin D3 1,000 uni t tablet RxNorm: 477171 1 Tablet(s) PO daily No Start Date Active Vitamin C 500 mg tablet RxNorm: 870338 1 Tablet(s) PO daily No Start Date Active acidophilus 25 susanne on cell-pectin, citrus 100 mg tablet RxNorm: 414380 1 Tablet(s) PO BID No Start Date Active Zinc and C oral RxNorm: oral No Start Date Active aspirin 81 mg chewab le tablet RxNorm: 302175 1 Tablet(s) PO QPM No Start Date Active Zegerid OTC 20 mg-1. 1 gram capsule RxNorm: 329183 1 Capsule(s) PO daily No Start Date Active magnesium 250 mg tablet RxNorm: 1 Tablet(s) PO daily No Start Date Active flaxseed oil 1,000 m g capsule RxNorm: 544352 1 Capsule(s) PO BID No Start Date Active milk thistle 175 mg tablet RxNorm: 599544 1 Tablet(s) PO daily No Start Date Active metformin ER 750 mg tablet,extended release 24 hr RxNorm: 012357 2 Tablet(s) PO daily No Start Date 08/06/2017 Inactive atorvastatin 20 mg t ablet RxNorm: 253511 1 Tablet(s) PO daily No Start Date 08/27/2017 Inactive Tradjenta 5 mg tablet RxNorm: 4887972 1 Tablet(s) PO daily No Start Date 08/11/2017 Inactive diltiazem ER 300 mg tablet,extended release 24 hr RxNorm: 330160 1 Tablet(s) PO daily No Start Date 05/18/2017 Inactive glimepiride 2 mg tablet RxNorm: 167636 1 Tablet(s) PO BID No Start Date 07/17/2017 Inactive Zithromax Z-Maury 250 mg tablet RxNorm: 615766 1 Tablet(s) PO UD No Start Date 08/14/2017 Inactive atenolol 50 mg-chlor thalidone 25 mg tablet RxNorm: 559432 1 Tablet(s) PO daily No Start Date 12/17/2017 Inactive diltiazem CD 360 mg capsule,extended release 24 hr RxNorm: 122705 1 Capsule(s) PO QHS No Start Date [...] c) ICD- 10: D50.0 ICD-9: 280.0 06/10/2017 Encounter for immunization ICD-10: Z 23 ICD-9: V04.81 06/09/2017 Reason For Visit Reason For Visit Effective Dates Notes diabetes mellitus 06/22/2018 vision change 05/14/2018 dizziness [...] 22.7 % 05/14/2018 Cbc With Differential Ord2 Hughes% 12.2 % 05/14/2018 Cbc With Differential Ord2 [...] 1.81 K/ul 05/14/2018 Cbc With Differential Ord2 Hughes ABS# 1.0 K/ul 05/14/2018 Cbc With Differential Ord2 Eos ABS# 0.1 K/ul 05/14/2018 Cbc With Differential Ord2 Baso ABS# 0.0 K/ul 05/14/2018 Ehrlichia Chaffeensis Antibody Igm 787943 EHRLICHIA CHAFFEENSIS IGM < 1:16 04/09/2018 Ehrlichia Chaffeensis Antibody Igg 929501 EHRLICHIA CHAFFEENSIS IGG 1:64 04/09/2018 [place] Spotted Fever Igg/Igm 43153 3 LOTUS MT SPOTTED FEVER IGM EIA . 04/09/2018 [place] Spotted Fever Igg/Igm 63472 3 RMSF, IGM 0.36 index 04/09/2018 [place] Spotted Fever Igg/Igm 31424 3 LOTUS MT SPOTTED FEVER IGG EIA FLEX . 04/09/2018 [place] Spotted Fever Igg/Igm 22699 3 RMSF, IGG SCREEN-FLEX Negative 04/09/2018 Lymes Disease Total Antibodies With Western Blot Refle x [id number] B. BURGDORFERI, IGG/IGM 0.31 04/07/2018 Lymes Disease Total Antibodies With Western Blot Refle x [id number] INTERPRETATION 04/07/2018 %Hba1C Pcw100 % HbA1c 64617-5 7.2 % 03/31/2018 %Hba1C Ipj252 Gluc Ave 160 mg/dL 03/31/2018 Lipid Ord30 [...] 22.4 % 12/22/2017 Cbc With Differential Ord2 Hughes% 11.5 % 12/22/2017 Cbc With Differential Ord2 [...] 2.16 K/ul 12/22/2017 Cbc With Differential Ord2 Hughes ABS# 1.1 K/ul 12/22/2017 Cbc With Differential Ord2 Eos ABS# 0.1 K/ul 12/22/2017 Cbc With Differential Ord2 Baso ABS# 0.0 K/ul 12/22/2017 Comp Metabolic Cfj685 NA 141 mEq/L 12/22/2017 Comp Metabolic Omp092 K 3.9 mEq/L 12/22/2017 Comp Metabolic Uns120 CL 99 mEq/L 12/22/2017 Comp Metabolic Oej475 CO2 32.0 mEq/L 12/22/2017 Comp Metabolic Cxa677 AN ION GAP 14 12/22/2017 Comp Metabolic Fnc898 GL UCOSE 152 mg/dL 12/22/2017 Comp Metabolic Lsk712 Cr eat 1.0 mg/dL 12/22/2017 Comp Metabolic Qjv222 eG FR 78 ml/min/1.73m2 12/22 Comp Metabolic Pbb208 BUN 27 mg/dL 12/22/2017 Comp Metabolic Ipr303 B/ C Ratio 27.8 Ratio 12/22/2017 Comp Metabolic Pfw048 CA LCIUM 9.7 mg/dL 12/22/2017 Comp Metabolic Ytg824 AL K PHOS 56 U/L 12/22/2017 Comp Metabolic Tmn213 T(SGOT) 18 U/L 12/22/2017 Comp Metabolic Sfx798 AL T(SGPT) 20 U/L 12/22/2017 Comp Metabolic Bgd302 BI LI T 0.4 mg/dL 12/22/2017 Comp Metabolic Qtb297 AL BUMIN 4.2 g/dL 12/22/2017 Comp Metabolic Abh796 TP RO 6.4 g/dL 12/22/2017 Comp Metabolic Mue776 GL OB 2.2 g/dL 12/22/2017 Comp Metabolic Jer073 A/ G Ratio 1.9 Ratio 12/22/2017 Comp Metabolic Ndv938 Os mo 289 mOsmo 12/22/2017 %Hba1C Hfe112 % HbA1c 40310-0 7.1 % 12/22/2017 %Hba1C Tsx149 Gluc Ave 157 mg/dL 12/22/2017 Cbc With [...] 93.3 fl 09/22/2017 Cbc With Differential Ord2 Hughes% 8.4 % 09/22/2017 Cbc With Differential Ord2 [...] 1.83 K/ul 09/22/2017 Cbc With Differential Ord2 Hughes ABS# 0.9 K/ul 09/22/2017 Cbc With Differential Ord2 Eos ABS# 0.0 K/ul 09/22/2017 Cbc With Differential Ord2 Baso ABS# 0.0 K/ul 09/22/2017 %Hba1C Pdo632 % HbA1c 92945-4 6.9 % 09/22/2017 %Hba1C Pwv048 Gluc Ave 151 mg/dL 09/22/2017 Tsh Ord6 [...] 31.6 pg 06/17/2017 Cbc With Differential Ord2 Hughes% 11.1 % 06/17/2017 Cbc With Differential Ord2 [...] 2.35 K/ul 06/17/2017 Cbc With Differential Ord2 Hughes ABS# 1.2 K/ul 06/17/2017 Cbc With Differential Ord2 Eos ABS# 0.1 K/ul 06/17/2017 Cbc With Differential Ord2 Baso ABS# 0.0 K/ul 06/17/2017 %Hba1C Whe584 % HbA1c 77547-5 7.3 % 06/17/2017 %Hba1C Rxg689 Gluc Ave 163 mg/dL 06/17/2017 Comp Metabolic Add460 NA 137 mEq/L 06/17/2017 Comp Metabolic Plb329 K 3.8 mEq/L 06/17/2017 Comp Metabolic Oei616 CL 98 mEq/L 06/17/2017 Comp Metabolic Zdp392 CO2 30.0 mEq/L 06/17/2017 Comp Metabolic Rlt400 AN ION GAP 13 06/17/2017 Comp Metabolic Yoe921 GL UCOSE 157 mg/dL 06/17/2017 Comp Metabolic Yqy788 Cr eat 1.0 mg/dL 06/17/2017 Comp Metabolic Vrf432 eG FR 76 ml/min/1.73m2 06/17 Comp Metabolic Nip273 BUN 18 mg/dL 06/17/2017 Comp Metabolic Rey510 B/ C Ratio 18.0 Ratio 06/17/2017 Comp Metabolic Twu968 CA LCIUM 9.8 mg/dL 06/17/2017 Comp Metabolic Oxx322 AL K PHOS 57 U/L 06/17/2017 Comp Metabolic Cfr591 T(SGOT) 19 U/L 06/17/2017 Comp Metabolic Zia610 AL T(SGPT) 23 U/L 06/17/2017 Comp Metabolic Uuo835 BI LI T 0.6 mg/dL 06/17/2017 Comp Metabolic Zpr496 AL BUMIN 4.4 g/dL 06/17/2017 Comp Metabolic Sdh559 TP RO 6.8 g/dL 06/17/2017 Comp Metabolic Pma431 GL OB 2.4 g/dL 06/17/2017 Comp Metabolic Rwf410 A/ G Ratio 1.9 Ratio 06/17/2017 Comp Metabolic Uct971 Os mo 279 mOsmo 06/17/2017 Review of [...] contact 05/20/2017 None Procedures Procedure Codes Date GLUC MONITOR CONT PH YS I&R CPT-4: 93342 01/27/2018 PPPS, SUBSEQ VISIT CPT- 4: G0439 01/21/2018 GLUCOSE MONITORING CONT CPT-4: 03453 01/06/2018 ADMIN INFLUENZA VIRU S VAC CPT-4: G0008 06/09/2017 FLU VACC PRSV FREE I NC ANTIG CPT-4: 54799 06/09/2017 Vital Signs Date Vital 06/22/2018 Blood Pressure 1: 144/86 Code: 8480-6 BMI: 36.0 Code: 57375-1 Heart Rate 1: 74 bpm Height: 5'8" SpO2: 98% Weight: 237 lbs 05/14/2018 Blood Pressure 1: 132/72 Code: 8480-6 Height: Weight: 04/27/2018 Blood Pressure 1: 148/78 Code: 8480-6 BMI: 35.6 Code: 07223-5 Heart Rate 1: 77 bpm Height: 5'8" SpO2: 97% Weight: 234 lbs 04/03/2018 Blood Pressure 1: 156/80 Code: 8480-6 BMI: 35.4 Code: 17246-2 Heart Rate 1: 70 bpm Height: 5'8" SpO2: 97% Weight: 233 lbs 01/27/2018 BMI: 35.6 Code: 57420-9 Heart Rate 1: 86 bpm Height: 5'8" SpO2: 98% Weight: 234 lbs 01/21/2018 Heigh t: Weight: 01/06/2018 Heigh t: Weight: 12/31/2017 Blood Pressure 1: 140/86 Code: 8480-6 BMI: 34.2 Code: 66321-5 Heart Rate 1: 80 bpm Height: 5'8" SpO2: 98% Weight: 225 lbs 10/08/2017 Blood Pressure 1: 152/74 Code: 8480-6 BMI: 34.2 Code: 12981-9 Heart Rate 1: 67 bpm Height: 5'8" SpO2: 98% Weight: 225 lbs 08/27/2017 Blood Pressure 1: 144/82 Code: 8480-6 BMI: 34.2 Code: 53589-5 Heart Rate 1: 70 bpm Height: 5'8" SpO2: 98% Weight: 225 lbs 06/10/2017 Blood Pressure 1: 150/84 Code: 8480-6 BMI: 35.0 Code: 29779-4 Heart Rate 1: 67 bpm Height: 5'8" SpO2: 98% Weight: 230 lbs 05/20/2017 Blood Pressure 1: 146/76 Code: 8480-6 BMI: 35.3 Code: 12412-1 Heart Rate 1: 70 bpm Height: 5'8" SpO2: 98% Weight: 232 lbs Functional Status No Functional Status data History of Present Illness Symptom Name Status Resu lt Effective Date Notes diabetes mellitus Quality chronic 06/22/2018 None diabetes [...] Encounters Encounter Performer Loca tion Codes Date 16582 EST. PATIENT, LEVEL III Diagnosis: Type 2 diabetes mellitus with hyperglycemia[ICD10: E11.65] Laney Guerrero MD, [facility] CPT-4: 99431 06/22/2018 [id number] EST. PATIENT, LEVEL IV Diagnosis: Diplopia[ICD10: H53.2] Diagnosis: Other specified anemias[ICD10: D64.89] Laney Guerrero MD, [facility] CPT-4: 43387 05/14/2018 92649 EST. PATIENT, LEVEL III Diagnosis: Benign paroxysmal vertigo, bilateral[ICD10: H81.13] Diagnosis: Other allergic rhinitis[ICD10: J30.89] Laney Guerrero MD, [facility] CPT-4: 35693 04/27/2018 47262 EST. PATIENT, LEVEL III Diagnosis: Type 2 diabetes mellitus with hyperglycemia[ICD10: E11.65] Diagnosis: Other fatigue[ICD10: R53.83] Diagnosis: Other malaise[ICD10: R53.81] Diagnosis: Bitten or stung by nonvenomous insect and other nonvenomous arthropods, initial encounter[ICD10: W57.XXXA] Diagnosis: Cellulitis of right upper limb[ICD10: L03.113] Diagnosis: Mixed hyperlipidemia[ICD10: E78.2] Laney Guerrero MD, [facility] CPT-4: 61050 04/03/2018 ([id number]) 22681 EST. P ATIENT, LEVEL III Diagnosis: Type 2 diabetes mellitus with hyperglycemia[ICD10: E11.65] Laney Guerrero MD, [facility] CPT-4: 23634 01/27/2018 ([id number]) Miscellaneou s no charge Diagnosis: Type 2 diabetes mellitus with hyperglycemia[ICD10: E11.65] Laney Guerrero MD, [facility] CPT-4: 17717 01/13/2018 07431 EST. PATIENT, LEVEL III Diagnosis: Type 2 diabetes mellitus with hyperglycemia[ICD10: E11.65] Diagnosis: Essential (primary) hypertension[ICD10: I10] Diagnosis: Mixed hyperlipidemia[ICD10: E78.2] Laney Guerrero MD, [facility] CPT-4: 72769 12/31/2017 23268 EST. PATIENT, LEVEL III Diagnosis: Type 2 diabetes mellitus with hyperglycemia[ICD10: E11.65] Diagnosis: Essential (primary) hypertension[ICD10: I10] Diagnosis: Mixed hyperlipidemia[ICD10: E78.2] Diagnosis: Actinic keratosis[ICD10: L57.0] Laney Guerrero MD, [facility] CPT-4: 09700 10/08/2017 53949 EST. PATIENT, LEVEL III Diagnosis: Type 2 diabetes mellitus with hyperglycemia[ICD10: E11.65] Diagnosis: Essential (primary) hypertension[ICD10: I10] Diagnosis: Mixed hyperlipidemia[ICD10: E78.2] Diagnosis: Actinic keratosis[ICD10: L57.0] Laney Guerrero MD, [facility] CPT-4: 45896 08/27/2017 78506 EST. PATIENT, LEVEL III Diagnosis: Type 2 diabetes mellitus with hyperglycemia[ICD10: E11.65] Diagnosis: Essential (primary) hypertension[ICD10: I10] Diagnosis: Mixed hyperlipidemia[ICD10: E78.2] Laney Guerrero MD, [facility] CPT-4: 27276 06/25/2017 ([id number]) 94949 EST. 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 06/22/2018 Patient Education: Patient Medication Summary Completed 06/22/2018 Patient Education: Diabetes Completed 06/22/2018 Care Plan: Referral Order SNOMED-CT : [id number] Pending 06/22/2018 [facility] Ref[facility] Initiated 06/02/2018 Appointment: Nurse Visit 05/18/2018 [...] any changes, questions, or concerns. 05/14/2018 Appointment: Ashkan Laney WPtel: [facility] (15 min) Moderate 05/14/2018 Patient Education: Patient [...] 04/27/2018 Care Plan: Referral Order SNOMED-CT : [id number] Pending 04/27/2018 Visit Plan: Diabetes Mellitus - [...] months for follow up on the patient's insights analyst gumaro medical problem and to assure normal liver response to medications. 04/03/2018 Appointment: Laney Luther [facility]Ptel[facility] [phone] [facility] (15 min) Moderate 04/03/2018 Patient Education: Patient Medication Summary Completed 04/03/2018 Appointment: Lane[facility] Luther [facility]el[facility] [phone] [facility] (30 min) Complex 03/31/2018 Patient [...] control. 01/27/2018 Appointment: Lane[facility] Luther [facility]Ptel[facility] [phone] [facility] [place] (30 min) Complex 01/27/2018 Patient Education: [...] Completed 01/21/2018 Appointment: Lane[facility] Luther [facility]el[facility] [phone] [facility] (15 min) Moderate 01/13/2018 Patient [...] glucose control. 01/06/2018 Appointment: Laney Luther [facility]Ptel[facility] [phone] [facility] [place] (15 min) Moderate 01/06/2018 Patient Education: [...] to medications. 12/31/2017 Appointment: Laney Luther WPtel: [address] [place], [place] [address] (30 min) [facility] 12/31/2017 Patient Education: Patient Medication Summary [...] concerns. 10/08/2017 Appointment: Lane[facility] Luther [facility]el[facility] [phone] [facility] (30 min) Complex 10/08/2017 Patient Education: Patient Medication Summary Completed 10/08/2017 Appointment: Laney Luther [facility]Ptel[facility] [phone] [facility] (15 min) Moderate 10/07/2017 Visit [...] concerns. 08/27/2017 Appointment: Laney Luther [facility]Ptel[facility] [phone] [facility] (30 min) Complex 08/27/2017 Patient [...] medications. 06/25/2017 Appointment: Laney Luther [facility]Ptel[facility] [phone] [facility] (30 min) Complex 06/25/2017 Patient Education: Patient Medication Summary Completed 06/25/2017 App[facility]ment: [facility]el[facility] [phone] [facility] (30 min) Complex 06/24/2017 Visit Plan: Hypertension [...] medications. 06/10/2017 Appointment: Debra Ramirez WPtel: [phone] [facility] (30 min) Complex 06/10/2017 Patient Education: [...] control. 05/20/2017 Appointment: Laney Luther WPtel: [phone] [facility] New Patient 05/20/2017 Patient Education: Patient Medication Summary Completed 05/20/2017 [facility] [place] Referral Initiated Referral: Kevin Cuevas Referral [...] further instructions/medication interventions. GET RECENT LABS FROM [facility] FASTING LABS NEXT WEEK UNLESS [...]
--- OUTSIDE RECORDS SUMMARY | 2020-02-09 07:25 | XMS REPORT | CCD ---
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] ICD-9: 780.79 ICD-10: R53.81 Active 04/03/2018 Unknown Type 2 diabetes stevo itus with hyperglycemia ICD-9: 250.02 ICD-10: E11.65 Active 05/20/2017 Unknown Encounter for genera l adult medical [...] malaise ICD-9: 780.79 ICD-10: R53.81 04/03/2018 Active Type 2 diabetes stevo itus with hyperglycemia ICD-9: 250.02 ICD-10: E11.65 05/20/2017 Active Encounter for genera l adult medical examination with abnormal findings ICD-9: V70.0 ICD-10: Z00.01 01/21/2018 Active Actinic keratosis ICD-9: 702.0 ICD-10: L57.0 08/27/2017 Active Essential (primary) hypertension ICD-9: 401.1 ICD-10: I10 05/20/2017 Active Encounter for immuni zation ICD-9: V04.81 ICD-10: Z23 06/09/2017 Active Medications Medication Codes Instruc tions Start Date Stop Date Sta tus Fill Instructions doxycycline hyclate 100 mg capsule RxNorm: 4719339 1 Capsule(s) PO BID 04/03/2018 04/12/2018 Ac tive meclizine 25 mg tablet RxNorm: 018143 1 Tablet(s) PO TID as needed Dizziness 04/03/2018 04/07/2018 In active metformin ER 750 mg tablet,extended release 24 hr RxNorm: 949571 2 TABLET(S) PO DAILY 02/03/2018 06/02/2018 Ac tive glimepiride 2 mg tablet RxNorm: 707709 TAKE 1 TABLET BY MOUTH TWICE DAILY FOR D IABETES 01/13/2018 04/07/2019 Active glimepiride 2 mg tablet RxNorm: 283500 TAKE 1 TABLET BY MOUTH TWICE DAILY FOR D IABETES 01/11/2018 01/05/2019 Active diltiazem CD 360 mg capsule,extended release 24 hr RxNorm: 199232 1 CAPSULE(S) PO QHS 01/02/2018 12/27/2018 Ac tive atenolol 50 mg-chlor thalidone 25 mg tablet RxNorm: 269618 1 Tablet(s) PO daily 12/18/2017 12/12/2018 Ac tive PLEASE SEND REFILL REQUESTS ELECTRONICAL LY Tradjenta 5 mg tablet RxNorm: 3537215 TAKE 1 TABLET BY MOUTH DAILY 12/15/2017 05/13/2018 Ac tive metformin ER 750 mg tablet,extended release 24 hr RxNorm: 245106 2 TABLET(S) PO DAILY 11/05/2017 02/02/2018 Inactive metformin ER 750 mg tablet,extended release 24 hr RxNorm: 987767 2 TABLET(S) PO DAILY 11/03/2017 02/02/2018 Inactive atorvastatin 20 mg t ablet RxNorm: 335055 TAKE 1 TABLET BY MOUT H EVERY NIGHT AT BEDTIME FOR CHOLESTEROL 08/28/2017 08/22/2018 Active Zithromax Z-Maury 250 mg tablet RxNorm: 554311 1 Tablet(s) PO UD 08/15/2017 No Stop Date Active Tamiflu 75 mg capsule RxNorm: 714598 1 Capsule(s) PO BID 08/15/2017 08/14/2017 Inactive Tamiflu 75 mg capsule RxNorm: 742459 1 Capsule(s) PO BID 08/15/2017 08/19/2017 Inactive Tradjenta 5 mg tablet RxNorm: 9515247 TAKE 1 TABLET BY MOUTH DAILY 08/12/2017 12/09/2017 In active metformin ER 750 mg tablet,extended release 24 hr RxNorm: 530793 TAKE 2 TABLET BY MOUT H ONCE A DAY DIRECTED 08/08/2017 No Stop Date Active SAVINGS FOR NON-COVERED MEDICATIONS Claims: BIN: [id number], PCN: [id number], GROUP: [id number], Patient ID: [id number] Phone; Questions: [facility] [phone] metformin ER 750 mg tablet,extended release 24 hr RxNorm: 438700 2 Tablet(s) PO daily 08/07/2017 08/06/2017 Inactive metformin ER 750 mg tablet,extended release 24 hr RxNorm: 583703 2 Tablet(s) PO daily 08/07/2017 11/02/2017 Inactive glimepiride 2 mg tablet RxNorm: 089064 TAKE 1 TABLET BY MOUTH TWICE DAILY FOR D IABETES 07/18/2017 01/10/2018 Inactive diltiazem CD 360 mg capsule,extended release 24 hr RxNorm: 845714 1 Capsule(s) PO QHS 07/03/2017 12/29/2017 Inactive One Touch Test strips RxNorm: 1 Miscellaneous daily 05/30/2017 06/28/2017 Inactive One Touch Test strips RxNorm: 1 Miscellaneous daily 05/30/2017 05/29/2017 Inactive iron gluconate-B cmp lx-potassium iodide-minerals oral RxNorm: 46539 oral No Start Date Active Super B Complex 100 tablet RxNorm: 1 Tablet(s) PO daily No Start Date Active Glucosamine Chondroi tin Maximum Strength oral RxNorm: 4845 oral No Start Date Active garlic 1,000 mg capsule RxNorm: 737106 1 Capsule(s) PO BID No Start Date Active vitamin E (dl, aceta te) 400 unit capsule RxNorm: 393137 1 Capsule(s) PO daily No Start Date Active beta carotene 25,000 unit tablet RxNorm: 922821 1 Tablet(s) PO daily No Start Date Active rutin 500 mg tablet RxNorm: 282104 1/2 Tablet(s) PO daily No Start Date Active Calcium 600 + Minera ls oral RxNorm: 251357 oral No S tart Date Active Vitamin D3 1,000 uni t tablet RxNorm: 001803 1 Tablet(s) PO daily No Start Date Active Vitamin C 500 mg tablet RxNorm: 092724 1 Tablet(s) PO daily No Start Date Active acidophilus 25 susanne on cell-pectin, citrus 100 mg tablet RxNorm: 115511 1 Tablet(s) PO BID No Start Date Active Zinc and C oral RxNorm: oral No Start Date Active aspirin 81 mg chewab le tablet RxNorm: 081882 1 Tablet(s) PO QPM No Start Date Active Zegerid OTC 20 mg-1. 1 gram capsule RxNorm: 729462 1 Capsule(s) PO daily No Start Date Active magnesium 250 mg tablet RxNorm: 1 Tablet(s) PO daily No Start Date Active flaxseed oil 1,000 m g capsule RxNorm: 928961 1 Capsule(s) PO BID No Start Date Active milk thistle 175 mg tablet RxNorm: 483285 1 Tablet(s) PO daily No Start Date Active metformin ER 750 mg tablet,extended release 24 hr RxNorm: 344360 2 Tablet(s) PO daily No Start Date 08/06/2017 Inactive atorvastatin 20 mg t ablet RxNorm: 954303 1 Tablet(s) PO daily No Start Date 08/27/2017 Inactive Tradjenta 5 mg tablet RxNorm: 1067323 1 Tablet(s) PO daily No Start Date 08/11/2017 Inactive diltiazem ER 300 mg tablet,extended release 24 hr RxNorm: 246224 1 Tablet(s) PO daily No Start Date 05/18/2017 Inactive glimepiride 2 mg tablet RxNorm: 454846 1 Tablet(s) PO BID No Start Date 07/17/2017 Inactive Zithromax Z-Maury 250 mg tablet RxNorm: 104008 1 Tablet(s) PO UD No Start Date 08/14/2017 Inactive atenolol 50 mg-chlor thalidone 25 mg tablet RxNorm: 314913 1 Tablet(s) PO daily No Start Date 12/17/2017 Inactive diltiazem CD 360 mg capsule,extended release 24 hr RxNorm: 222960 1 Capsule(s) PO QHS No Start Date 07/02/2017 Inactive Medication Administered No Medication Administered data Immunizations Vaccine Codes Date Status Influenza CVX: 141 06/09 completed Assessments Condition Codes Effectiv e Dates Type 2 diabetes mellitus with hyperglycemia ICD-10: E11.65 ICD-9: 250.02 04/03/2018 Other fatigue ICD-10: R53.83 ICD-9: 780.79 04/03/2018 [...] For Visit Effective Dates Notes diabetes mellitus 04/03/2018 diabetes mellitus 01/27/2018 Annual Medicare Wellness Exam 01/21/2018 diabetes mellitus 01/06/2018 diabetes mellitus 12/31/2017 diabetes mellitus 10/08/2017 diabetes mellitus 08/27/2017 diabetes mellitus 06/25/2017 diabetes mellitus 06/10/2017 vaccination against influenza 06/09/2017 hypertension 05/20/2017 Results Observation Observation Code Item Item Code Result Date Lymes Disease Total Antibodies With Western Blot Refle x 658497 B. BURGDORFERI, IGG/IGM 0.31 04/07/2018 Lymes Disease Total Antibodies With Western Blot Refle x 271265 INTERPRETATION 04/07/2018 %Hba1C Pfl318 % HbA1c 94912-6 7.2 % 03/31/2018 %Hba1C Ijv633 Gluc Ave 160 mg/dL 03/31/2018 Lipid Ord30 [...] 22.4 % 12/22/2017 Cbc With Differential Ord2 Miner% 11.5 % 12/22/2017 Cbc With Differential Ord2 [...] 2.16 K/ul 12/22/2017 Cbc With Differential Ord2 Miner ABS# 1.1 K/ul 12/22/2017 Cbc With Differential Ord2 Eos ABS# 0.1 K/ul 12/22/2017 Cbc With Differential Ord2 Baso ABS# 0.0 K/ul 12/22/2017 Comp Metabolic Bwv567 NA 141 mEq/L 12/22/2017 Comp Metabolic Rad299 K 3.9 mEq/L 12/22/2017 Comp Metabolic Cuq712 CL 99 mEq/L 12/22/2017 Comp Metabolic Kvx101 CO2 32.0 mEq/L 12/22/2017 Comp Metabolic Jzg295 AN ION GAP 14 12/22/2017 Comp Metabolic Jek575 GL UCOSE 152 mg/dL 12/22/2017 Comp Metabolic Ahq069 Cr eat 1.0 mg/dL 12/22/2017 Comp Metabolic Bqj655 eG FR 78 ml/min/1.73m2 12/22 Comp Metabolic Xkm979 BUN 27 mg/dL 12/22/2017 Comp Metabolic Exb406 B/ C Ratio 27.8 Ratio 12/22/2017 Comp Metabolic Ykw358 CA LCIUM 9.7 mg/dL 12/22/2017 Comp Metabolic Tao772 AL K PHOS 56 U/L 12/22/2017 Comp Metabolic Abj404 T(SGOT) 18 U/L 12/22/2017 Comp Metabolic Beh591 AL T(SGPT) 20 U/L 12/22/2017 Comp Metabolic Nri742 BI LI T 0.4 mg/dL 12/22/2017 Comp Metabolic Zoa869 AL BUMIN 4.2 g/dL 12/22/2017 Comp Metabolic Jnv880 TP RO 6.4 g/dL 12/22/2017 Comp Metabolic Cos210 GL OB 2.2 g/dL 12/22/2017 Comp Metabolic Qzq080 A/ G Ratio 1.9 Ratio 12/22/2017 Comp Metabolic Ufu929 Os mo 289 mOsmo 12/22/2017 %Hba1C Zdd974 % HbA1c 02546-5 7.1 % 12/22/2017 %Hba1C Uyx769 Gluc Ave 157 mg/dL 12/22/2017 Cbc With [...] 93.3 fl 09/22/2017 Cbc With Differential Ord2 Miner% 8.4 % 09/22/2017 Cbc With Differential Ord2 [...] 1.83 K/ul 09/22/2017 Cbc With Differential Ord2 Miner ABS# 0.9 K/ul 09/22/2017 Cbc With Differential Ord2 Eos ABS# 0.0 K/ul 09/22/2017 Cbc With Differential Ord2 Baso ABS# 0.0 K/ul 09/22/2017 %Hba1C Mwu697 % HbA1c 56662-7 6.9 % 09/22/2017 %Hba1C Ceq139 Gluc Ave 151 mg/dL 09/22/2017 Tsh Ord6 [...] 64.9 % 06/17/2017 Cbc With Differential Ord2 Lymph% 22.6 % 06/17/2017 Cbc With Differential Ord2 MCV 91.6 fl 06/17/2017 Cbc With Differential Ord2 MCH 31.6 pg 06/17/2017 Cbc With Differential Ord2 Miner% 11.1 % 06/17/2017 Cbc With Differential Ord2 [...] 2.35 K/ul 06/17/2017 Cbc With Differential Ord2 Miner ABS# 1.2 K/ul 06/17/2017 Cbc With Differential Ord2 Eos ABS# 0.1 K/ul 06/17/2017 Cbc With Differential Ord2 Baso ABS# 0.0 K/ul 06/17/2017 %Hba1C Dpm027 % HbA1c 73230-7 7.3 % 06/17/2017 %Hba1C Kft922 Gluc Ave 163 mg/dL 06/17/2017 Comp Metabolic Osg227 NA 137 mEq/L 06/17/2017 Comp Metabolic Vgu273 K 3.8 mEq/L 06/17/2017 Comp Metabolic Bel744 CL 98 mEq/L 06/17/2017 Comp Metabolic Hzt216 CO2 30.0 mEq/L 06/17/2017 Comp Metabolic Iha091 AN ION GAP 13 06/17/2017 Comp Metabolic Tzg705 GL UCOSE 157 mg/dL 06/17/2017 Comp Metabolic Svi772 Cr eat 1.0 mg/dL 06/17/2017 Comp Metabolic Ylt395 eG FR 76 ml/min/1.73m2 06/17 Comp Metabolic Ksq331 BUN 18 mg/dL 06/17/2017 Comp Metabolic Qtl895 B/ C Ratio 18.0 Ratio 06/17/2017 Comp Metabolic Dlx433 CA LCIUM 9.8 mg/dL 06/17/2017 Comp Metabolic Lqy999 AL K PHOS 57 U/L 06/17/2017 Comp Metabolic Yeh058 T(SGOT) 19 U/L 06/17/2017 Comp Metabolic Iwy232 AL T(SGPT) 23 U/L 06/17/2017 Comp Metabolic Srt833 BI LI T 0.6 mg/dL 06/17/2017 Comp Metabolic Cft575 AL BUMIN 4.4 g/dL 06/17/2017 Comp Metabolic Ein259 TP RO 6.8 g/dL 06/17/2017 Comp Metabolic Ypp657 GL OB 2.4 g/dL 06/17/2017 Comp Metabolic Jzj015 A/ G Ratio 1.9 Ratio 06/17/2017 Comp Metabolic Thw269 Os mo 279 mOsmo 06/17/2017 Review of Systems System Result Effective Dates Constitutional No recent illness 04/03/2018 Constitutional No [...] 1+ 10/08/2017 None Full Exam - General 1995 Cardiovascular extremities Edema present: bilateral 10/08/2017 None [...] skin Location: scalp 10/08/2017 [place] - right caodaism, mid fo rehead/scalp, left posterior neck - [...] skin Location: scalp 08/27/2017 [place] - right caodaism, mid fo rehead/scalp - cryotherapy to area, [...] GLUC MONITOR CONT PH YS I&R CPT-4: 98150 01/27/2018 PPPS, SUBSEQ VISIT CPT- 4: G0439 01/21/2018 GLUCOSE MONITORING CONT CPT-4: 64353 01/06/2018 ADMIN INFLUENZA VIRU S VAC CPT-4: G0008 06/09/2017 FLU VACC PRSV FREE I NC ANTIG CPT-4: 46631 06/09/2017 Vital Signs Date Vital 04/03/2018 Blood Pressure 1: 156/80 Code: 8480-6 BMI: 35.4 Code: 87283-9 Heart Rate 1: 70 bpm Height: 5'8" SpO2: 97% Weight: 233 lbs 01/27/2018 BMI: 35.6 Code: 45751-5 Heart Rate 1: 86 bpm Height: 5'8" SpO2: 98% Weight: 234 lbs 01/21/2018 Heigh t: Weight: 01/06/2018 Heigh t: Weight: 12/31/2017 Blood Pressure 1: 140/86 Code: 8480-6 BMI: 34.2 Code: 62262-6 Heart Rate 1: 80 bpm Height: 5'8" SpO2: 98% Weight: 225 lbs 10/08/2017 Blood Pressure 1: 152/74 Code: 8480-6 BMI: 34.2 Code: 04257-2 Heart Rate 1: 67 bpm Height: 5'8" SpO2: 98% Weight: 225 lbs 08/27/2017 Blood Pressure 1: 144/82 Code: 8480-6 BMI: 34.2 Code: 25690-9 Heart Rate 1: 70 bpm Height: 5'8" SpO2: 98% Weight: 225 lbs 06/10/2017 Blood Pressure 1: 150/84 Code: 8480-6 BMI: 35.0 Code: 25819-4 Heart Rate 1: 67 bpm Height: 5'8" SpO2: 98% Weight: 230 lbs 05/20/2017 Blood Pressure 1: 146/76 Code: 8480-6 BMI: 35.3 Code: 57230-9 Heart Rate 1: 70 bpm Height: 5'8" SpO2: 98% Weight: 232 lbs Functional Status No Functional Status data History of Present Illness Symptom Name Status Resu lt Effective Date Notes diabetes mellitus Quality chronic 04/03/2018 None diabetes [...] No Advance Directive data Encounters Encounter Performer Luz Elena campbell Codes Date 10776 EST. PATIENT, LEVEL III Diagnosis: Type 2 diabetes mellitus with hyperglycemia[ICD10: E11.65] Diagnosis: Other fatigue[ICD10: R53.83] Diagnosis: Other malaise[ICD10: R53.81] Diagnosis: Bitten or stung by nonvenomous insect and other nonvenomous arthropods, initial encounter[ICD10: W57.XXXA] Diagnosis: Cellulitis of right upper limb[ICD10: L03.113] Diagnosis: Mixed hyperlipidemia[ICD10: E78.2] Laney Guerrero MD, [facility] CPT-4: 61050 04/03/2018 ([id number]) 47176 EST. P ATIENT, LEVEL III Diagnosis: Type 2 diabetes mellitus with hyperglycemia[ICD10: E11.65] Laney Guerrero MD, [facility] CPT-4: 06350 01/27/2018 ([id number]) Dionicio kapaln no charge Diagnosis: Type 2 diabetes mellitus with hyperglycemia[ICD10: E11.65] Laney Guerrero MD, [facility] CPT-4: 19681 01/13/2018 94570 EST. PATIENT, LEVEL III Diagnosis: Type 2 diabetes mellitus with hyperglycemia[ICD10: E11.65] Diagnosis: Essential (primary) hypertension[ICD10: I10] Diagnosis: Mixed hyperlipidemia[ICD10: E78.2] Laney Guerrero MD, [facility] CPT-4: 04589 12/31/2017 78463 EST. PATIENT, LEVEL III Diagnosis: Type 2 diabetes mellitus with hyperglycemia[ICD10: E11.65] Diagnosis: Essential (primary) hypertension[ICD10: I10] Diagnosis: Mixed hyperlipidemia[ICD10: E78.2] Diagnosis: Actinic keratosis[ICD10: L57.0] Laney Guerrero MD, [facility] CPT-4: 67386 10/08/2017 [id number] EST. PATIENT, LEVEL III Diagnosis: Type 2 diabetes mellitus with hyperglycemia[ICD10: E11.65] Diagnosis: Essential (primary) hypertension[ICD10: I10] Diagnosis: Mixed hyperlipidemia[ICD10: E78.2] Diagnosis: Actinic keratosis[ICD10: L57.0] Laney Guerrero MD, [facility] CPT-4: 88707 08/27/2017 30487 EST. PATIENT, LEVEL III Diagnosis: Type 2 diabetes mellitus with hyperglycemia[ICD10: E11.65] Diagnosis: Essential (primary) hypertension[ICD10: I10] Diagnosis: Mixed hyperlipidemia[ICD10: E78.2] Laney Guerrero MD, [facility] CPT-4: 35730 06/25/2017 ([id number]) 86769 EST. 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 04/03/2018 [facility]ment[facility] [phone] [facility] [place] (15 min) Moderate 04/03/2018 Patient Education: Patient Medication Summary Completed 04/03/2018 App[facility]ment: [facility] [phone] [facility] (30 min) Complex 03/31/2018 Patient Education: Patient [...] glucose control. 01/27/2018 Appointment: [facility] [phone] [facility] [place] (30 min) Complex 01/27/2018 Patient Education: [...] Completed 01/21/2018 Appointment: [facility] [phone] [facility] [place] (15 min) Moderate 01/13/2018 Patient Education: Patient [...] glucose control. 01/06/2018 Appointment: [facility] [phone] [facility] [place] (15 min) Moderate 01/06/2018 Patient Education: [...] to medications. 12/31/2017 Appointment: Laney Luther WPtel: [address] [place], [place] [phone] (30 min) [facility] 12/31/2017 Patient Education: Patient Medication Summary [...] acute concerns. 10/08/2017 Appointment: [facility] [phone] [facility] (30 min) Complex 10/08/2017 Patient Education: Patient Medication Summary Completed 10/08/2017 App[facility]ment: [facility] [phone] [facility] (15 min) Moderate 10/07/2017 Visit Plan: Diabetes [...] concerns. 08/27/2017 App[facility]ment: [facility] [phone] [facility] (30 min) Complex 08/27/2017 Patient Education: Patient [...] medications. 06/25/2017 Appointment: [facility] [phone] [facility] [place] (30 min) Complex 06/25/2017 Patient Education: Patient Medication Summary Completed 06/25/2017 [facility]ment[facility] [phone] [phone] [place] (30 min) Complex 06/24/2017 Visit Plan: [...] to medications. 06/10/2017 Appointment: Debra Ramirez WPtel: [address] [place] [phone] (30 min) [facility] 06/10/2017 Patient Education: Patient Medication Summary Completed [...] control. 05/20/2017 Appointment: [facility] Luther [facility] [phone] [facility] [place] New Patient 05/20/2017 Patient Education: Patient Medication Summary Completed 05/20/2017 Instructions Comment . Medicare Exam - to [...] to allow for greater blood glucose control. No changes - follow a diabetic diet [...] to assure normal liver response to medications. GET RECENT LABS FROM [facility] FASTING LABS NEXT WEEK UNLESS WE [...]
--- OUTSIDE RECORDS SUMMARY | 2020-02-09 07:26 | XMS REPORT | CCD ---
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] Instructions doxycycline hyclate 100 mg capsule RxNorm: 5310697 1 Capsule(s) PO BID 04/03/2018 04/12/2018 Ac tive meclizine 25 mg tablet RxNorm: 241563 1 Tablet(s) PO TID as needed Dizziness 04/03/2018 04/07/2018 In active metformin ER 750 mg tablet,extended release 24 hr RxNorm: 722354 2 TABLET(S) PO DAILY 02/03/2018 06/02/2018 Ac tive glimepiride 2 mg tablet RxNorm: 309661 TAKE 1 TABLET BY MOUTH TWICE DAILY FOR D IABETES 01/13/2018 04/07/2019 Active glimepiride 2 mg tablet RxNorm: 410306 TAKE 1 TABLET BY MOUTH TWICE DAILY FOR D IABETES 01/11/2018 01/05/2019 Active diltiazem CD 360 mg capsule,extended release 24 hr RxNorm: 446446 1 CAPSULE(S) PO QHS 01/02/2018 12/27/2018 Ac tive atenolol 50 mg-chlor thalidone 25 mg tablet RxNorm: 074370 1 Tablet(s) PO daily 12/18/2017 12/12/2018 Ac tive PLEASE SEND REFILL REQUESTS ELECTRONICAL LY Tradjenta 5 mg tablet RxNorm: 3376305 TAKE 1 TABLET BY MOUTH DAILY 12/15/2017 05/13/2018 Ac tive metformin ER 750 mg tablet,extended release 24 hr RxNorm: 498449 2 TABLET(S) PO DAILY 11/05/2017 02/02/2018 Inactive metformin ER 750 mg tablet,extended release 24 hr RxNorm: 119019 2 TABLET(S) PO DAILY 11/03/2017 02/02/2018 Inactive atorvastatin 20 mg t ablet RxNorm: 161990 TAKE 1 TABLET BY MOUT H EVERY NIGHT AT BEDTIME FOR CHOLESTEROL 08/28/2017 08/22/2018 Active Zithromax Z-Maury 250 mg tablet RxNorm: 936844 1 Tablet(s) PO UD 08/15/2017 No Stop Date Active Tamiflu 75 mg capsule RxNorm: 690972 1 Capsule(s) PO BID 08/15/2017 08/14/2017 Inactive Tamiflu 75 mg capsule RxNorm: 819937 1 Capsule(s) PO BID 08/15/2017 08/19/2017 Inactive Tradjenta 5 mg tablet RxNorm: 5005039 TAKE 1 TABLET BY MOUTH DAILY 08/12/2017 12/09/2017 In active metformin ER 750 mg tablet,extended release 24 hr RxNorm: 184268 TAKE 2 TABLET BY MOUT H ONCE A DAY DIRECTED 08/08/2017 No Stop Date Active SAVINGS FOR NON-COVERED MEDICATIONS Claims: BIN: [id number], PCN: [id number], GROUP: [id number], Patient ID: [id number] Phone; Questions: [facility] [phone] metformin ER 750 mg tablet,extended release 24 hr RxNorm: 467053 2 Tablet(s) PO daily 08/07/2017 08/06/2017 Inactive metformin ER 750 mg tablet,extended release 24 hr RxNorm: 159503 2 Tablet(s) PO daily 08/07/2017 11/02/2017 Inactive glimepiride 2 mg tablet RxNorm: 756222 TAKE 1 TABLET BY MOUTH TWICE DAILY FOR D IABETES 07/18/2017 01/10/2018 Inactive diltiazem CD 360 mg capsule,extended release 24 hr RxNorm: 264050 1 Capsule(s) PO QHS 07/03/2017 12/29/2017 Inactive One Touch Test strips RxNorm: 1 Miscellaneous daily 05/30/2017 06/28/2017 Inactive One Touch Test strips RxNorm: 1 Miscellaneous daily 05/30/2017 05/29/2017 Inactive iron gluconate-B cmp lx-potassium iodide-minerals oral RxNorm: 71965 oral No Start Date Active Super B Complex 100 tablet RxNorm: 1 Tablet(s) PO daily No Start Date Active Glucosamine Chondroi tin Maximum Strength oral RxNorm: 4845 oral No Start Date Active garlic 1,000 mg capsule RxNorm: 990962 1 Capsule(s) PO BID No Start Date Active vitamin E (dl, aceta te) 400 unit capsule RxNorm: 715720 1 Capsule(s) PO daily No Start Date Active beta carotene 25,000 unit tablet RxNorm: 787592 1 Tablet(s) PO daily No Start Date Active rutin 500 mg tablet RxNorm: 006764 1/2 Tablet(s) PO daily No Start Date Active Calcium 600 + Min[place] ls oral RxNorm: 338193 oral No S tart Date Active Vitamin D3 1,000 uni t tablet RxNorm: 322528 1 Tablet(s) PO daily No Start Date Active Vitamin C 500 mg tablet RxNorm: 992127 1 Tablet(s) PO daily No Start Date Active acidophilus 25 susanne on cell-pectin, citrus 100 mg tablet RxNorm: 944646 1 Tablet(s) PO BID No Start Date Active Zinc and C oral RxNorm: oral No Start Date Active aspirin 81 mg chewab le tablet RxNorm: 064413 1 Tablet(s) PO QPM No Start Date Active Zegerid OTC 20 mg-1. 1 gram capsule RxNorm: 727104 1 Capsule(s) PO daily No Start Date Active magnesium 250 mg tablet RxNorm: 1 Tablet(s) PO daily No Start Date Active flaxseed oil 1,000 m g capsule RxNorm: 874727 1 Capsule(s) PO BID No Start Date Active milk thistle 175 mg tablet RxNorm: 245286 1 Tablet(s) PO daily No Start Date Active metformin ER 750 mg tablet,extended release 24 hr RxNorm: 739971 2 Tablet(s) PO daily No Start Date 08/06/2017 Inactive atorvastatin 20 mg t ablet RxNorm: 616704 1 Tablet(s) PO daily No Start Date 08/27/2017 Inactive Tradjenta 5 mg tablet RxNorm: 2692351 1 Tablet(s) PO daily No Start Date 08/11/2017 Inactive diltiazem ER 300 mg tablet,extended release 24 hr RxNorm: 773485 1 Tablet(s) PO daily No Start Date 05/18/2017 Inactive glimepiride 2 mg tablet RxNorm: 904382 1 Tablet(s) PO BID No Start Date 07/17/2017 Inactive Zithromax Z-Maury 250 mg tablet RxNorm: 616360 1 Tablet(s) PO UD No Start Date 08/14/2017 Inactive atenolol 50 mg-chlor thalidone 25 mg tablet RxNorm: 488933 1 Tablet(s) PO daily No Start Date 12/17/2017 Inactive diltiazem CD 360 mg capsule,extended release 24 hr RxNorm: 670047 1 Capsule(s) PO QHS No Start Date [...] Total Antibodies With Western Blot Refle x 027696 B. BURGDORFERI, IGG/IGM 0.31 04/07/2018 Lymes Disease Total Antibodies With Western Blot Refle x 290831 INTERPRETATION 04/07/2018 %Hba1C Hwv079 % HbA1c 54006-1 7.2 % 03/31/2018 %Hba1C Xcv002 Gluc Ave 160 mg/dL 03/31/2018 Lipid Ord30 [...] 22.4 % 12/22/2017 Cbc With Differential Ord2 King% 11.5 % 12/22/2017 Cbc With Differential Ord2 [...] 2.16 K/ul 12/22/2017 Cbc With Differential Ord2 King ABS# 1.1 K/ul 12/22/2017 Cbc With Differential Ord2 Eos ABS# 0.1 K/ul 12/22/2017 Cbc With Differential Ord2 Baso ABS# 0.0 K/ul 12/22/2017 Comp Metabolic Noa272 NA 141 mEq/L 12/22/2017 Comp Metabolic Tjc582 K 3.9 mEq/L 12/22/2017 Comp Metabolic Rux772 CL 99 mEq/L 12/22/2017 Comp Metabolic Nct165 CO2 32.0 mEq/L 12/22/2017 Comp Metabolic Pdi987 AN ION GAP 14 12/22/2017 Comp Metabolic Utj716 GL UCOSE 152 mg/dL 12/22/2017 Comp Metabolic Kaz050 Cr eat 1.0 mg/dL 12/22/2017 Comp Metabolic Dba573 eG FR 78 ml/min/1.73m2 12/22 Comp Metabolic Msk970 BUN 27 mg/dL 12/22/2017 Comp Metabolic Uqe756 B/ C Ratio 27.8 Ratio 12/22/2017 Comp Metabolic Bmn870 CA LCIUM 9.7 mg/dL 12/22/2017 Comp Metabolic Zpc232 AL K PHOS 56 U/L 12/22/2017 Comp Metabolic Zfv261 T(SGOT) 18 U/L 12/22/2017 Comp Metabolic Mbe074 AL T(SGPT) 20 U/L 12/22/2017 Comp Metabolic Nhv322 BI LI T 0.4 mg/dL 12/22/2017 Comp Metabolic Msl408 AL BUMIN 4.2 g/dL 12/22/2017 Comp Metabolic Ixz724 TP RO 6.4 g/dL 12/22/2017 Comp Metabolic Vhg293 GL OB 2.2 g/dL 12/22/2017 Comp Metabolic Pxd186 A/ G Ratio 1.9 Ratio 12/22/2017 Comp Metabolic Ffa599 Os mo 289 mOsmo 12/22/2017 %Hba1C Gbo459 % HbA1c 44622-2 7.1 % 12/22/2017 %Hba1C Pdg653 Gluc Ave 157 mg/dL 12/22/2017 Cbc With [...] 93.3 fl 09/22/2017 Cbc With Differential Ord2 King% 8.4 % 09/22/2017 Cbc With Differential Ord2 [...] 1.83 K/ul 09/22/2017 Cbc With Differential Ord2 King ABS# 0.9 K/ul 09/22/2017 Cbc With Differential Ord2 Eos ABS# 0.0 K/ul 09/22/2017 Cbc With Differential Ord2 Baso ABS# 0.0 K/ul 09/22/2017 %Hba1C Fyi009 % HbA1c 18359-4 6.9 % 09/22/2017 %Hba1C Oqk330 Gluc Ave 151 mg/dL 09/22/2017 Tsh Ord6 [...] 31.6 pg 06/17/2017 Cbc With Differential Ord2 King% 11.1 % 06/17/2017 Cbc With Differential Ord2 [...] 2.35 K/ul 06/17/2017 Cbc With Differential Ord2 King ABS# 1.2 K/ul 06/17/2017 Cbc With Differential Ord2 Eos ABS# 0.1 K/ul 06/17/2017 Cbc With Differential Ord2 Baso ABS# 0.0 K/ul 06/17/2017 %Hba1C Agl701 % HbA1c 10080-6 7.3 % 06/17/2017 %Hba1C Kak980 Gluc Ave 163 mg/dL 06/17/2017 Comp Metabolic Uij511 NA 137 mEq/L 06/17/2017 Comp Metabolic Qys769 K 3.8 mEq/L 06/17/2017 Comp Metabolic Ump918 CL 98 mEq/L 06/17/2017 Comp Metabolic Qvk364 CO2 30.0 mEq/L 06/17/2017 Comp Metabolic Dzm592 AN ION GAP 13 06/17/2017 Comp Metabolic Fpr048 GL UCOSE 157 mg/dL 06/17/2017 Comp Metabolic Ehq886 Cr eat 1.0 mg/dL 06/17/2017 Comp Metabolic Qsj026 eG FR 76 ml/min/1.73m2 06/17 Comp Metabolic Czm987 BUN 18 mg/dL 06/17/2017 Comp Metabolic Gqg620 B/ C Ratio 18.0 Ratio 06/17/2017 Comp Metabolic Keu909 CA LCIUM 9.8 mg/dL 06/17/2017 Comp Metabolic Rdo885 AL K PHOS 57 U/L 06/17/2017 Comp Metabolic Xjv344 T(SGOT) 19 U/L 06/17/2017 Comp Metabolic Htp162 AL T(SGPT) 23 U/L 06/17/2017 Comp Metabolic Cre911 BI LI T 0.6 mg/dL 06/17/2017 Comp Metabolic Vay850 AL BUMIN 4.4 g/dL 06/17/2017 Comp Metabolic Lux624 TP RO 6.8 g/dL 06/17/2017 Comp Metabolic Xvx490 GL OB 2.4 g/dL 06/17/2017 Comp Metabolic Myi074 A/ G Ratio 1.9 Ratio 06/17/2017 Comp Metabolic Xfm396 Os mo 279 mOsmo 06/17/2017 Review of [...] skin Location: scalp 10/08/2017 [place] - right holiness, mid fo rehead/scalp, left posterior neck - [...] skin Location: scalp 08/27/2017 [place] - right holiness, mid fo rehead/scalp - cryotherapy to area, [...] GLUC MONITOR CONT PH YS I&R CPT-4: 96044 01/27/2018 PPPS, SUBSEQ VISIT CPT- 4: G0439 01/21/2018 GLUCOSE MONITORING CONT CPT-4: 67524 01/06/2018 ADMIN INFLUENZA VIRU S VAC CPT-4: G0008 06/09/2017 FLU VACC PRSV FREE I NC ANTIG CPT-4: 85306 06/09/2017 Vital Signs Date Vital 04/03/2018 Blood Pressure 1: 156/80 Code: 8480-6 BMI: 35.4 Code: 32414-3 Heart Rate 1: 70 bpm Height: 5'8" SpO2: 97% Weight: 233 lbs 01/27/2018 BMI: 35.6 Code: 96053-8 Heart Rate 1: 86 bpm Height: 5'8" SpO2: 98% Weight: 234 lbs 01/21/2018 Heigh t: Weight: 01/06/2018 Heigh t: Weight: 12/31/2017 Blood Pressure 1: 140/86 Code: 8480-6 BMI: 34.2 Code: 40498-7 Heart Rate 1: 80 bpm Height: 5'8" SpO2: 98% Weight: 225 lbs 10/08/2017 Blood Pressure 1: 152/74 Code: 8480-6 BMI: 34.2 Code: 15239-6 Heart Rate 1: 67 bpm Height: 5'8" SpO2: 98% Weight: 225 lbs 08/27/2017 Blood Pressure 1: 144/82 Code: 8480-6 BMI: 34.2 Code: 55387-9 Heart Rate 1: 70 bpm Height: 5'8" SpO2: 98% Weight: 225 lbs 06/10/2017 Blood Pressure 1: 150/84 Code: 8480-6 BMI: 35.0 Code: 65763-1 Heart Rate 1: 67 bpm Height: 5'8" SpO2: 98% Weight: 230 lbs 05/20/2017 Blood Pressure 1: 146/76 Code: 8480-6 BMI: 35.3 Code: 09357-4 Heart Rate 1: 70 bpm Height: 5'8" [...] Encounter Performer Luz Elena campbell Codes Date 46540 EST. PATIENT, LEVEL III Diagnosis: Type 2 diabetes mellitus with hyperglycemia[ICD10: E11.65] Diagnosis: Other fatigue[ICD10: R53.83] Diagnosis: Other malaise[ICD10: R53.81] Diagnosis: Bitten or stung by nonvenomous insect and other nonvenomous arthropods, initial encounter[ICD10: W57.XXXA] Diagnosis: Cellulitis of right upper limb[ICD10: L03.113] Diagnosis: Mixed hyperlipidemia[ICD10: E78.2] aLney Guerrero MD, [facility] CPT-4: 65543 04/03/2018 ([id number]) 52969 EST. P ATIENT, LEVEL III Diagnosis: Type 2 diabetes mellitus with hyperglycemia[ICD10: E11.65] Laney Guerrero MD, [facility] CPT-4: 58934 01/27/2018 ([id number]) Dionicio kaplan no charge Diagnosis: Type 2 diabetes mellitus with hyperglycemia[ICD10: E11.65] Laney Guerrero MD, [facility] CPT-4: 74765 01/13/2018 [id number] EST. PATIENT, LEVEL III Diagnosis: Type 2 diabetes mellitus with hyperglycemia[ICD10: E11.65] Diagnosis: Essential (primary) hypertension[ICD10: I10] Diagnosis: Mixed hyperlipidemia[ICD10: E78.2] Laney Guerrero MD, [facility] CPT-4: 02534 12/31/2017 92496 EST. PATIENT, LEVEL III Diagnosis: Type 2 diabetes mellitus with hyperglycemia[ICD10: E11.65] Diagnosis: Essential (primary) hypertension[ICD10: I10] Diagnosis: Mixed hyperlipidemia[ICD10: E78.2] Diagnosis: Actinic keratosis[ICD10: L57.0] Laney Guerrero MD, [facility] CPT-4: 73363 10/08/2017 76527 EST. PATIENT, LEVEL III Diagnosis: Type 2 diabetes mellitus with hyperglycemia[ICD10: E11.65] Diagnosis: Essential (primary) hypertension[ICD10: I10] Diagnosis: Mixed hyperlipidemia[ICD10: E78.2] Diagnosis: Actinic keratosis[ICD10: L57.0] Laney Guerrero MD, [facility] CPT-4: 96997 08/27/2017 68552 EST. PATIENT, LEVEL III Diagnosis: Type 2 diabetes mellitus with hyperglycemia[ICD10: E11.65] Diagnosis: Essential (primary) hypertension[ICD10: I10] Diagnosis: Mixed hyperlipidemia[ICD10: E78.2] Laney Guerrero MD, [facility] CPT-4: 05097 06/25/2017 ([id number]) 89803 EST. 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 04/03/2018 [facility] [phone] [phone] [place] ([facility] Moderate 04/03/2018 Patient Education: Patient Medication Summary Completed 04/03/2018 [facility]ment[facility] [phone] [phone] ([facility]) Complex 03/31/2018 Patient Education: [...] glucose control. 01/27/2018 [facility]ment: [facility] [phone] [phone] [place] ([facility] [place]) Complex 01/27/2018 Patient [...] Summary Completed 01/21/2018 [facility]ment[facility] [phone] [phone] [place] (15 min) Moderate 01/13/2018 Patient Education: [...] glucose control. 01/06/2018 App[facility]ment: Lane[facility] [phone] [facility] [place] (15 min) Moderate 01/06/2018 Patient Education: [...] to medications. 12/31/2017 Appointment: Laney Luther WPtel: [address] [place], [place] [phone] (30 min) [facility] 12/31/2017 Patient Education: Patient Medication Summary Completed [...] acute concerns. 10/08/2017 [facility]ment: [facility] [phone] [phone] ([facility]) Complex 10/08/2017 Patient Education: Patient Medication Summary Completed 10/08/2017 [facility]ment: [facility] [phone] [phone] (15 min) Moderate 10/07/2017 Visit Plan: [...] concerns. 08/27/2017 [facility]ment: [facility] [phone] [phone] ([facility]) Complex 08/27/2017 Patient Education: [...] medications. 06/25/2017 [facility]ment: [facility] [phone] [phone] [place] ([facility] min) Complex 06/25/2017 Patient Education: Patient Medication Summary Completed 06/25/2017 [facility] [phone] [phone] [place] (30 min) Complex 06/24/2017 Visit [...] to medications. 06/10/2017 Appointment: Debra Ramirez WPtel: [address] [place] [phone] (30 min) [facility] 06/10/2017 Patient Education: Patient Medication Summary Completed [...] control. 05/20/2017 [facility]ment: [facility] [phone] [phone] [place] New [facility] 05/20/2017 Patient Education: Patient [...] response to medications. GET RECENT LABS FROM [facility] FASTING LABS NEXT WEEK UNLESS [...]
--- OUTSIDE RECORDS SUMMARY | 2020-02-09 07:27 | XMS REPORT | CCD ---
Author Author Gunnar Luther Organization Karo Guerrero MD, [facility] Address [address] [place] [address] Phone Care Team Providers Care Crosscutter Rolled Glass Name Role Phone PP Unavailable CCM Unavailable Summary Purpose Interface Exchange Insurance Providers Payer name Policy type / Coverage type Covered alliance party ID Effective Begin Date Effective End Date WPS Medicare Part B Medicare Part B [id number] Unknown Aetna Medicare Part B AH [id number] Unknown Cigna Medicare Part B 80 [id number] Unknown Family history Sister Diagnosis Age At Onset Breast cancer Unknown Mother Diagnosis Age At Onset Asthma Unknown Arthritis Unknown Father Diagnosis Age At Onset Arthritis Unknown Cancer Unknown Brother Diagnosis Age At Onset Cancer Unknown Social History Social History Element Codes Description Effective Dates Marital status Unknown W idowed 05/20/2017 Employment Unknown 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 05/20/[address]: 409211905 Never smoker 05/20/[address]: 345734929 Never drinks alcohol 05/20/2017 Allergies, Adverse Reactions, Alerts Allergies, Adverse Reactions, Alerts data not found Past Medical History Illness Codes Condition Status Onset Date Resolved Date Actinic keratosis ICD-9: 702.0 ICD-10: L57.0 Active 08/27/2017 Unknown Essential (primary) hypertension ICD-9: 401.1 ICD-10: I10 Active 05/20/2017 Unknown Mixed hyperlipidemia ICD-9: 272.2 ICD-10: E78.2 Active 06/10/2017 Unknown Type 2 diabetes stevo itus with hyperglycemia ICD-9: 250.02 ICD-10: E11.65 Active 05/20/2017 Unknown Encounter for immuni zation ICD-9: V04.81 ICD-10: Z23 Active 06/09/2017 Unknown Problems Condition Codes Effectiv e Dates Condition Status Actinic keratosis ICD-9: 702.0 ICD-10: L57.0 08/27/2017 Active Essential (primary) hypertension ICD-9: 401.1 ICD-10: I10 05/20/2017 Active Mixed hyperlipidemia ICD-9: 272.2 ICD-10: E78.2 06/10/2017 Active Type 2 diabetes stevo itus with hyperglycemia ICD-9: 250.02 ICD-10: E11.65 05/20/2017 Active Encounter for immuni zation ICD-9: V04.81 ICD-10: Z23 06/09/2017 Active Medications Medication Codes Instruc tions Start Date Stop Date Sta tus Fill Instructions atorvastatin 20 mg t ablet RxNorm: 206411 TAKE 1 TABLET BY MOUT H EVERY NIGHT AT BEDTIME FOR CHOLESTEROL 08/28/2017 08/22/2018 Active Zithromax Z-Maury 250 mg tablet RxNorm: 692958 1 Tablet(s) PO UD 08/15/2017 No Stop Date Active Tamiflu 75 mg capsule RxNorm: 966445 1 Capsule(s) PO BID 08/15/2017 08/14/2017 Inactive Tamiflu 75 mg capsule RxNorm: 435104 1 Capsule(s) PO BID 08/15/2017 08/19/2017 Inactive Tradjenta 5 mg tablet RxNorm: 1086530 TAKE 1 TABLET BY MOUTH DAILY 08/12/2017 12/09/2017 Ac tive metformin ER 750 mg tablet,extended release 24 hr RxNorm: 790162 TAKE 2 TABLET BY MOUT H ONCE A DAY DIRECTED 08/08/2017 No Stop Date Active SAVINGS FOR NON-COVERED MEDICATIONS Claims: BIN: [id number], PCN: [id number], GROUP: [facility], Patient ID: [id number] Phone; Questions: YourRx [phone] metformin ER 750 mg tablet,extended release 24 hr RxNorm: 895481 2 Tablet(s) PO daily 08/07/2017 11/04/2017 Ac tive metformin ER 750 mg tablet,extended release 24 hr RxNorm: 004311 2 Tablet(s) PO daily 08/07/2017 08/06/2017 Inactive glimepiride 2 mg tablet RxNorm: 440219 TAKE 1 TABLET BY MOUTH TWICE DAILY FOR D IABETES 07/18/2017 01/13/2018 Active diltiazem CD 360 mg capsule,extended release 24 hr RxNorm: 965048 1 Capsule(s) PO QHS 07/03/2017 12/29/2017 Ac tive One Touch Test strips RxNorm: 1 Miscellaneous daily 05/30/2017 06/28/2017 Inactive One Touch Test strips RxNorm: 1 Miscellaneous daily 05/30/2017 05/29/2017 Inactive iron gluconate-B cmp lx-potassium iodide-minerals oral RxNorm: 54891 oral No Start Date Active Super B Complex 100 tablet RxNorm: 1 Tablet(s) PO daily No Start Date Active Glucosamine Chondroi tin Maximum Strength oral RxNorm: 4845 oral No Start Date Active garlic 1,000 mg capsule RxNorm: 470346 1 Capsule(s) PO BID No Start Date Active vitamin E (dl, aceta te) 400 unit capsule RxNorm: 167659 1 Capsule(s) PO daily No Start Date Active beta carotene 25,000 unit tablet RxNorm: 935216 1 Tablet(s) PO daily No Start Date Active rutin 500 mg tablet RxNorm: 219901 1/2 Tablet(s) PO daily No Start Date Active Calcium 600 + Minera ls oral RxNorm: 796699 oral No S tart Date Active Vitamin D3 1,000 uni t tablet RxNorm: 010230 1 Tablet(s) PO daily No Start Date Active Vitamin C 500 mg tablet RxNorm: 153600 1 Tablet(s) PO daily No Start Date Active acidophilus 25 susanne on cell-pectin, citrus 100 mg tablet RxNorm: 803721 1 Tablet(s) PO BID No Start Date Active Zinc and C oral RxNorm: oral No Start Date Active aspirin 81 mg chewab le tablet RxNorm: 745619 1 Tablet(s) PO QPM No Start Date Active Zegerid OTC 20 mg-1. 1 gram capsule RxNorm: 462105 1 Capsule(s) PO daily No Start Date Active atenolol 50 mg-chlor thalidone 25 mg tablet RxNorm: 018457 1 Tablet(s) PO daily No Start Date Active magnesium 250 mg tablet RxNorm: 1 Tablet(s) PO daily No Start Date Active flaxseed oil 1,000 m g capsule RxNorm: 085576 1 Capsule(s) PO BID No Start Date Active milk thistle 175 mg tablet RxNorm: 908173 1 Tablet(s) PO daily No Start Date Active metformin ER 750 mg tablet,extended release 24 hr RxNorm: 675138 2 Tablet(s) PO daily No Start Date 08/06/2017 Inactive atorvastatin 20 mg t ablet RxNorm: 379423 1 Tablet(s) PO daily No Start Date 08/27/2017 Inactive Tradjenta 5 mg tablet RxNorm: 9131355 1 Tablet(s) PO daily No Start Date 08/11/2017 Inactive diltiazem ER 300 mg tablet,extended release 24 hr RxNorm: 848953 1 Tablet(s) PO daily No Start Date 05/18/2017 Inactive glimepiride 2 mg tablet RxNorm: 272377 1 Tablet(s) PO BID No Start Date 07/17/2017 Inactive Zithromax Z-Maury 250 mg tablet RxNorm: 401571 1 Tablet(s) PO UD No Start Date 08/14/2017 Inactive diltiazem CD 360 mg capsule,extended release 24 hr RxNorm: 552714 1 Capsule(s) PO QHS No Start Date 07/02/2017 Inactive Medication Administered No Medication Administered data Immunizations Vaccine Codes Date Status Influenza CVX: 141 06/09 completed Assessments Condition Codes Effectiv e Dates Actinic keratosis ICD-10: L57.0 ICD-9: 702.0 08/27/2017 Type 2 diabetes mellitus with hyperglycemia ICD-10: E11.65 ICD-9: 250.02 08/27/2017 Mixed hyperlipidemia ICD-10: E78.2 ICD-9: 272.2 08/27/2017 Essential (primary) hypertension ICD -10: I10 ICD-9: 401.1 08/27/2017 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 ICD-9: 280.0 06/10/2017 Encounter for immunization ICD-10: Z 23 ICD-9: V04.81 06/09/2017 Reason For Visit Reason For Visit Effective Dates Notes diabetes mellitus 08/27/2017 diabetes mellitus 06/25/2017 diabetes mellitus 06/10/2017 vaccination against influenza 06/09/2017 hypertension 05/20/2017 Results Observation Observation Code Item Item Code Result Date Tsh Ord6 hTSH II 1.87 uIU/mL 06/17/2017 [...] 31.6 pg 06/17/2017 Cbc With Differential Ord2 Gulf% 11.1 % 06/17/2017 Cbc With Differential Ord2 [...] 2.35 K/ul 06/17/2017 Cbc With Differential Ord2 Gulf ABS# 1.2 K/ul 06/17/2017 Cbc With Differential Ord2 Eos ABS# 0.1 K/ul 06/17/2017 Cbc With Differential Ord2 Baso ABS# 0.0 K/ul 06/17/2017 %Hba1C Cel602 % HbA1c 86631-3 7.3 % 06/17/2017 %Hba1C Ftj444 Gluc Ave 163 mg/dL 06/17/2017 Comp Metabolic Lvu712 NA 137 mEq/L 06/17/2017 Comp Metabolic Hdu227 K 3.8 mEq/L 06/17/2017 Comp Metabolic Kyc295 CL 98 mEq/L 06/17/2017 Comp Metabolic Gcy909 CO2 30.0 mEq/L 06/17/2017 Comp Metabolic Dhx488 AN ION GAP 13 06/17/2017 Comp Metabolic Mfb129 GL UCOSE 157 mg/dL 06/17/2017 Comp Metabolic Ald653 Cr eat 1.0 mg/dL 06/17/2017 Comp Metabolic Utt170 eG FR 76 ml/min/1.73m2 06/17 Comp Metabolic Ztd352 BUN 18 mg/dL 06/17/2017 Comp Metabolic Hpd363 B/ C Ratio 18.0 Ratio 06/17/2017 Comp Metabolic Hfd181 CA LCIUM 9.8 mg/dL 06/17/2017 Comp Metabolic Jdy394 AL K PHOS 57 U/L 06/17/2017 Comp Metabolic Cul375 T(SGOT) 19 U/L 06/17/2017 Comp Metabolic Kjv716 AL T(SGPT) 23 U/L 06/17/2017 Comp Metabolic Ghy551 BI LI T 0.6 mg/dL 06/17/2017 Comp Metabolic Peg868 AL BUMIN 4.4 g/dL 06/17/2017 Comp Metabolic Rsa563 TP RO 6.8 g/dL 06/17/2017 Comp Metabolic Fnq353 GL OB 2.4 g/dL 06/17/2017 Comp Metabolic Gfv759 A/ G Ratio 1.9 Ratio 06/17/2017 Comp Metabolic Gmg973 Os mo 279 mOsmo 06/17/2017 Review of Systems System Result Effective Dates Constitutional No recent illness 08/27/2017 Constitutional No [...] skin Location: scalp 08/27/2017 [place] - right protestant, mid fo rehead/scalp - cryotherapy to area, [...] VACC PRSV FREE I NC ANTIG CPT-4: 40047 06/09/2017 Vital Signs Date Vital 08/27/2017 Blood Pressure 1: 144/82 Code: 8480-6 BMI: 34.2 Code: 97622-5 Heart Rate 1: 70 bpm Height: 5'8" SpO2: 98% Weight: 225 lbs 06/10/2017 Blood Pressure 1: 150/84 Code: 8480-6 BMI: 35.0 Code: 59359-4 Heart Rate 1: 67 bpm Height: 5'8" SpO2: 98% Weight: 230 lbs 05/20/2017 Blood Pressure 1: 146/76 Code: 8480-6 BMI: 35.3 Code: 36109-4 Heart Rate 1: 70 bpm Height: 5'8" SpO2: 98% Weight: 232 lbs Functional Status No Functional Status data History of Present Illness Symptom Name Status Resu lt Effective Date Notes diabetes mellitus Quality chronic 08/27/2017 None diabetes [...] Encounters Encounter Performer Loca tion Codes Date 69956 EST. PATIENT, LEVEL III Diagnosis: Type 2 diabetes mellitus with hyperglycemia[ICD10: E11.65] Diagnosis: Essential (primary) hypertension[ICD10: I10] Diagnosis: Mixed hyperlipidemia[ICD10: E78.2] Diagnosis: Actinic keratosis[ICD10: L57.0] Laney Guerrero MD, [facility] CPT-4: 97461 08/27/2017 30006 EST. PATIENT, LEVEL III Diagnosis: Type 2 diabetes mellitus with hyperglycemia[ICD10: E11.65] Diagnosis: Essential (primary) hypertension[ICD10: I10] Diagnosis: Mixed hyperlipidemia[ICD10: E78.2] [facility] CPT-4: 00561 06/25/2017 ([id number]) 08935 EST. 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 08/27/2017 [facility]ment: [facility] [phone] [id number] ([facility] Complex 08/27/2017 Patient Education: Patient Medication Summary Completed 08/27/2017 Care Plan: %Hba1C LOIN C : 82109-3 Pending 08/27/2017 Care Plan: Cbc With Differential Pending 08/27/2017 Visit Plan: Diabetes Mellitus - Elio [...] medications. 06/25/2017 Appointment: Lane[facility] Luther [facility] [phone] [facility] ([facility]) Complex 06/25/2017 Patient Education: [...] medications. 06/10/2017 Appointment: De[facility] [phone] [phone] (30 min) Complex 06/10/2017 Patient Education: [...] for greater blood glucose control. 05/20/2017 Appointment: Ashkan [facility]el[facility] [phone] [facility] New Patient 05/20/2017 Patient Education: Patient Medication Summary Completed 05/20/2017 Instructions Comment . Diabetes Mellitus - The patient has [...] pustular drainage, or any other acute concerns. No changes - follow a diabetic [...] response to medications. GET RECENT LABS FROM [facility] FASTING LABS NEXT WEEK UNLESS [...]
--- OUTSIDE RECORDS SUMMARY | 2020-02-09 07:27 | XMS REPORT | CCD ---
Author Author Gunnar Luther Organization Karo Guerrero MD, [facility] Address [address] [place] [address] Phone Care Team Providers Care Pool Technician Name Role Phone PP Unavailable CCM Unavailable Summary Purpose Interface Exchange Insurance Providers Payer name Policy type / Coverage type Covered republican ID Effective Begin Date Effective End Date WPS Medicare Part B Medicare Part B [id number] Unknown Aetna Medicare Part B AH [id number] Unknown Cigna Medicare Part B 80 [id number] Unknown Family history Sister Diagnosis Age At Onset Breast cancer Unknown Mother Diagnosis Age At Onset Asthma Unknown Arthritis Unknown Father Diagnosis Age At Onset Arthritis Unknown Cancer Unknown Brother Diagnosis Age At Onset Cancer Unknown Social History Social History Element Codes Description Effective Dates Marital status Unknown W idowed 05/20/2017 Employment Unknown 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 05/20/[address]: 702268487 Never smoker 05/20/[address]: 991804128 Never drinks alcohol 05/20/2017 Allergies, Adverse Reactions, [...] Instructions atorvastatin 20 mg t ablet RxNorm: 222171 TAKE 1 TABLET BY MOUT H EVERY NIGHT AT BEDTIME FOR CHOLESTEROL 08/28/2017 08/22/2018 Active Zithromax Z-Maury 250 mg tablet RxNorm: 933301 1 Tablet(s) PO UD 08/15/2017 No Stop Date Active Tamiflu 75 mg capsule RxNorm: 352244 1 Capsule(s) PO BID 08/15/2017 08/14/2017 Inactive Tamiflu 75 mg capsule RxNorm: 123279 1 Capsule(s) PO BID 08/15/2017 08/19/2017 Inactive Tradjenta 5 mg tablet RxNorm: 6613332 TAKE 1 TABLET BY MOUTH DAILY 08/12/2017 12/09/2017 Ac tive metformin ER 750 mg tablet,extended release 24 hr RxNorm: 586113 TAKE 2 TABLET BY MOUT H ONCE A DAY DIRECTED 08/08/2017 No Stop Date Active SAVINGS FOR NON-COVERED MEDICATIONS Claims: BIN: [id number], PCN: BNRX, GROUP: [facility], Patient ID: [id number] Phone; Questions: YourRx [phone] metformin ER 750 mg tablet,extended release 24 hr RxNorm: 123649 2 Tablet(s) PO daily 08/07/2017 11/04/2017 Ac tive metformin ER 750 mg tablet,extended release 24 hr RxNorm: 399912 2 Tablet(s) PO daily 08/07/2017 08/06/2017 Inactive glimepiride 2 mg tablet RxNorm: 110227 TAKE 1 TABLET BY MOUTH TWICE DAILY FOR D IABETES 07/18/2017 01/13/2018 Active diltiazem CD 360 mg capsule,extended release 24 hr RxNorm: 828949 1 Capsule(s) PO QHS 07/03/2017 12/29/2017 Ac tive One Touch Test strips RxNorm: 1 Miscellaneous daily 05/30/2017 06/28/2017 Inactive One Touch Test strips RxNorm: 1 Miscellaneous daily 05/30/2017 05/29/2017 Inactive iron gluconate-B cmp lx-potassium iodide-minerals oral RxNorm: 31135 oral No Start Date Active Super B Complex 100 tablet RxNorm: 1 Tablet(s) PO daily No Start Date Active Glucosamine Chondroi tin Maximum Strength oral RxNorm: 4845 oral No Start Date Active garlic 1,000 mg capsule RxNorm: 331834 1 Capsule(s) PO BID No Start Date Active vitamin E (dl, aceta te) 400 unit capsule RxNorm: 592282 1 Capsule(s) PO daily No Start Date Active beta carotene 25,000 unit tablet RxNorm: 382776 1 Tablet(s) PO daily No Start Date Active rutin 500 mg tablet RxNorm: 957302 1/2 Tablet(s) PO daily No Start Date Active Calcium 600 + Minera ls oral RxNorm: 567072 oral No S tart Date Active Vitamin D3 1,000 uni t tablet RxNorm: 448406 1 Tablet(s) PO daily No Start Date Active Vitamin C 500 mg tablet RxNorm: 159741 1 Tablet(s) PO daily No Start Date Active acidophilus 25 susanne on cell-pectin, citrus 100 mg tablet RxNorm: 583726 1 Tablet(s) PO BID No Start Date Active Zinc and C oral RxNorm: oral No Start Date Active aspirin 81 mg chewab le tablet RxNorm: 995835 1 Tablet(s) PO QPM No Start Date Active Zegerid OTC 20 mg-1. 1 gram capsule RxNorm: 318767 1 Capsule(s) PO daily No Start Date Active atenolol 50 mg-chlor thalidone 25 mg tablet RxNorm: 767010 1 Tablet(s) PO daily No Start Date Active magnesium 250 mg tablet RxNorm: 1 Tablet(s) PO daily No Start Date Active flaxseed oil 1,000 m g capsule RxNorm: 337179 1 Capsule(s) PO BID No Start Date Active milk thistle 175 mg tablet RxNorm: 442477 1 Tablet(s) PO daily No Start Date Active metformin ER 750 mg tablet,extended release 24 hr RxNorm: 221856 2 Tablet(s) PO daily No Start Date 08/06/2017 Inactive atorvastatin 20 mg t ablet RxNorm: 989729 1 Tablet(s) PO daily No Start Date 08/27/2017 Inactive Tradjenta 5 mg tablet RxNorm: 0927701 1 Tablet(s) PO daily No Start Date 08/11/2017 Inactive diltiazem ER 300 mg tablet,extended release 24 hr RxNorm: 871380 1 Tablet(s) PO daily No Start Date 05/18/2017 Inactive glimepiride 2 mg tablet RxNorm: 199772 1 Tablet(s) PO BID No Start Date 07/17/2017 Inactive Zithromax Z-Maury 250 mg tablet RxNorm: 494529 1 Tablet(s) PO UD No Start Date 08/14/2017 Inactive diltiazem CD 360 mg capsule,extended release 24 hr RxNorm: 792404 1 Capsule(s) PO QHS No Start Date [...] 31.6 pg 06/17/2017 Cbc With Differential Ord2 Wirt% 11.1 % 06/17/2017 Cbc With Differential Ord2 [...] 2.35 K/ul 06/17/2017 Cbc With Differential Ord2 Wirt ABS# 1.2 K/ul 06/17/2017 Cbc With Differential Ord2 Eos ABS# 0.1 K/ul 06/17/2017 Cbc With Differential Ord2 Baso ABS# 0.0 K/ul 06/17/2017 %Hba1C Hik627 % HbA1c 71833-6 7.3 % 06/17/2017 %Hba1C Mah201 Gluc Ave 163 mg/dL 06/17/2017 Comp Metabolic Acg010 NA 137 mEq/L 06/17/2017 Comp Metabolic Xib874 K 3.8 mEq/L 06/17/2017 Comp Metabolic Djj048 CL 98 mEq/L 06/17/2017 Comp Metabolic Ixo433 CO2 30.0 mEq/L 06/17/2017 Comp Metabolic Nol696 AN ION GAP 13 06/17/2017 Comp Metabolic Yfn300 GL UCOSE 157 mg/dL 06/17/2017 Comp Metabolic Mpu994 Cr eat 1.0 mg/dL 06/17/2017 Comp Metabolic Gza696 eG FR 76 ml/min/1.73m2 06/17 Comp Metabolic Szh011 BUN 18 mg/dL 06/17/2017 Comp Metabolic Bxk748 B/ C Ratio 18.0 Ratio 06/17/2017 Comp Metabolic Wqd605 CA LCIUM 9.8 mg/dL 06/17/2017 Comp Metabolic Hvu386 AL K PHOS 57 U/L 06/17/2017 Comp Metabolic Ieg180 T(SGOT) 19 U/L 06/17/2017 Comp Metabolic Pto153 AL T(SGPT) 23 U/L 06/17/2017 Comp Metabolic Cve318 BI LI T 0.6 mg/dL 06/17/2017 Comp Metabolic Kwi354 AL BUMIN 4.4 g/dL 06/17/2017 Comp Metabolic Wrj899 TP RO 6.8 g/dL 06/17/2017 Comp Metabolic Kol575 GL OB 2.4 g/dL 06/17/2017 Comp Metabolic Rua326 A/ G Ratio 1.9 Ratio 06/17/2017 Comp Metabolic Xwo957 Os mo 279 mOsmo 06/17/2017 Review of [...] skin Location: scalp 08/27/2017 [place] - right jainism, mid fo rehead/scalp - cryotherapy to area, [...] VACC PRSV FREE I NC ANTIG CPT-4: 88783 06/09/2017 Vital Signs Date Vital 08/27/2017 Blood Pressure 1: 144/82 Code: 8480-6 BMI: 34.2 Code: 12567-0 Heart Rate 1: 70 bpm Height: 5'8" SpO2: 98% Weight: 225 lbs 06/10/2017 Blood Pressure 1: 150/84 Code: 8480-6 BMI: 35.0 Code: 89606-9 Heart Rate 1: 67 bpm Height: 5'8" SpO2: 98% Weight: 230 lbs 05/20/2017 Blood Pressure 1: 146/76 Code: 8480-6 BMI: 35.3 Code: 18750-2 Heart Rate 1: 70 bpm Height: 5'8" [...] Encounters Encounter Performer Loca tion Codes Date 80665 EST. PATIENT, LEVEL III Diagnosis: Type 2 diabetes mellitus with hyperglycemia[ICD10: E11.65] Diagnosis: Essential (primary) hypertension[ICD10: I10] Diagnosis: Mixed hyperlipidemia[ICD10: E78.2] Diagnosis: Actinic keratosis[ICD10: L57.0] Laney Guerrero MD, [facility] CPT-4: 29972 08/27/2017 36471 EST. PATIENT, LEVEL III Diagnosis: Type 2 diabetes mellitus with hyperglycemia[ICD10: E11.65] Diagnosis: Essential (primary) hypertension[ICD10: I10] Diagnosis: Mixed hyperlipidemia[ICD10: E78.2] [facility] CPT-4: 89424 06/25/2017 ([id number]) 86941 EST. 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 08/27/2017 [facility] [phone] [facility] [facility] Complex 08/27/2017 Patient Education: Patient Medication Summary Completed 08/27/2017 Care Plan: %Hba1C LOIN C : 89649-7 Pending 08/27/2017 Care Plan: Cbc With Differential [...] medications. 06/25/2017 [facility]ment[facility] [phone] [facility] ([facility] Complex 06/25/2017 Patient Education: [...] medications. 06/10/2017 [facility]ment[facility] [phone] [phone] (30 min) Complex 06/10/2017 Patient Education: [...] control. 05/20/2017 App[facility]ment: Ashkan [facility] [phone] [facility] New Patient 05/20/2017 Patient Education: Patient [...] to medications. GET RECENT LABS FROM [facility] FASTING LABS NEXT WEEK UNLESS WE CALL [...]
--- OUTSIDE RECORDS SUMMARY | 2020-02-09 07:27 | XMS REPORT | CCD ---
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 Name Role Phone PP Unavailable CCM Unavailable Summary Purpose Interface Exchange Insurance Providers Payer name Policy type / Coverage type Covered constitution party ID Effective Begin Date Effective End Date WPS Medicare Part B Medicare Part B [id number] Unknown Aetna Medicare Part B AH [id number] Unknown Cigna Medicare Part B 80 [id number] Unknown Family history Sister Diagnosis Age At [...] ed reddy 05/20/[address]: 419236273 Never smoker 05/20/[address]: 482189553 Never drinks alcohol 05/20/2017 Allergies, Adverse Reactions, [...] Instructions doxycycline hyclate 100 mg capsule RxNorm: 0528369 1 Capsule(s) PO BID 04/03/2018 04/12/2018 Ac tive meclizine 25 mg tablet RxNorm: 522147 1 Tablet(s) PO TID as needed Dizziness 04/03/2018 04/07/2018 In active metformin ER 750 mg tablet,extended release 24 hr RxNorm: 719173 2 TABLET(S) PO DAILY 02/03/2018 06/02/2018 Ac tive glimepiride 2 mg tablet RxNorm: 978849 TAKE 1 TABLET BY MOUTH TWICE DAILY FOR D IABETES 01/13/2018 04/07/2019 Active glimepiride 2 mg tablet RxNorm: 624356 TAKE 1 TABLET BY MOUTH TWICE DAILY FOR D IABETES 01/11/2018 01/05/2019 Active diltiazem CD 360 mg capsule,extended release 24 hr RxNorm: 866434 1 CAPSULE(S) PO QHS 01/02/2018 12/27/2018 Ac tive atenolol 50 mg-chlor thalidone 25 mg tablet RxNorm: 266088 1 Tablet(s) PO daily 12/18/2017 12/12/2018 Ac tive PLEASE SEND REFILL REQUESTS ELECTRONICAL LY Tradjenta 5 mg tablet RxNorm: 9737581 TAKE 1 TABLET BY MOUTH DAILY 12/15/2017 05/13/2018 Ac tive metformin ER 750 mg tablet,extended release 24 hr RxNorm: 542604 2 TABLET(S) PO DAILY 11/05/2017 02/02/2018 Inactive metformin ER 750 mg tablet,extended release 24 hr RxNorm: 850763 2 TABLET(S) PO DAILY 11/03/2017 02/02/2018 Inactive atorvastatin 20 mg t ablet RxNorm: 020301 TAKE 1 TABLET BY MOUT H EVERY NIGHT AT BEDTIME FOR CHOLESTEROL 08/28/2017 08/22/2018 Active Zithromax Z-Maury 250 mg tablet RxNorm: 189896 1 Tablet(s) PO UD 08/15/2017 No Stop Date Active Tamiflu 75 mg capsule RxNorm: 267359 1 Capsule(s) PO BID 08/15/2017 08/14/2017 Inactive Tamiflu 75 mg capsule RxNorm: 981407 1 Capsule(s) PO BID 08/15/2017 08/19/2017 Inactive Tradjenta 5 mg tablet RxNorm: 9061378 TAKE 1 TABLET BY MOUTH DAILY 08/12/2017 12/09/2017 In active metformin ER 750 mg tablet,extended release 24 hr RxNorm: 729494 TAKE 2 TABLET BY MOUT H ONCE A DAY DIRECTED 08/08/2017 No Stop Date Active SAVINGS FOR NON-COVERED MEDICATIONS Claims: BIN: [id number], PCN: [id number], GROUP: [id number], Patient ID: [id number] Phone; Questions: YourRx [phone] metformin ER 750 mg tablet,extended release 24 hr RxNorm: 985596 2 Tablet(s) PO daily 08/07/2017 08/06/2017 Inactive metformin ER 750 mg tablet,extended release 24 hr RxNorm: 161620 2 Tablet(s) PO daily 08/07/2017 11/02/2017 Inactive glimepiride 2 mg tablet RxNorm: 776895 TAKE 1 TABLET BY MOUTH TWICE DAILY FOR D IABETES 07/18/2017 01/10/2018 Inactive diltiazem CD 360 mg capsule,extended release 24 hr RxNorm: 576905 1 Capsule(s) PO QHS 07/03/2017 12/29/2017 Inactive One Touch Test strips RxNorm: 1 Miscellaneous daily 05/30/2017 06/28/2017 Inactive One Touch Test strips RxNorm: 1 Miscellaneous daily 05/30/2017 05/29/2017 Inactive iron gluconate-B cmp lx-potassium iodide-minerals oral RxNorm: 11109 oral No Start Date Active Super B Complex 100 tablet RxNorm: 1 Tablet(s) PO daily No Start Date Active Glucosamine Chondroi tin Maximum Strength oral RxNorm: 4845 oral No Start Date Active garlic 1,000 mg capsule RxNorm: 761170 1 Capsule(s) PO BID No Start Date Active vitamin E (dl, aceta te) 400 unit capsule RxNorm: 274994 1 Capsule(s) PO daily No Start Date Active beta carotene 25,000 unit tablet RxNorm: 358516 1 Tablet(s) PO daily No Start Date Active rutin 500 mg tablet RxNorm: 116377 1/2 Tablet(s) PO daily No Start Date Active Calcium 600 + Min[place] ls oral RxNorm: 582479 oral No S tart Date Active Vitamin D3 1,000 uni t tablet RxNorm: 564064 1 Tablet(s) PO daily No Start Date Active Vitamin C 500 mg tablet RxNorm: 661554 1 Tablet(s) PO daily No Start Date Active acidophilus 25 susanne on cell-pectin, citrus 100 mg tablet RxNorm: 627344 1 Tablet(s) PO BID No Start Date Active Zinc and C oral RxNorm: oral No Start Date Active aspirin 81 mg chewab le tablet RxNorm: 580177 1 Tablet(s) PO QPM No Start Date Active Zegerid OTC 20 mg-1. 1 gram capsule RxNorm: 251859 1 Capsule(s) PO daily No Start Date Active magnesium 250 mg tablet RxNorm: 1 Tablet(s) PO daily No Start Date Active flaxseed oil 1,000 m g capsule RxNorm: 834405 1 Capsule(s) PO BID No Start Date Active milk thistle 175 mg tablet RxNorm: 925953 1 Tablet(s) PO daily No Start Date Active metformin ER 750 mg tablet,extended release 24 hr RxNorm: 436643 2 Tablet(s) PO daily No Start Date 08/06/2017 Inactive atorvastatin 20 mg t ablet RxNorm: 659596 1 Tablet(s) PO daily No Start Date 08/27/2017 Inactive Tradjenta 5 mg tablet RxNorm: 4322388 1 Tablet(s) PO daily No Start Date 08/11/2017 Inactive diltiazem ER 300 mg tablet,extended release 24 hr RxNorm: 305669 1 Tablet(s) PO daily No Start Date 05/18/2017 Inactive glimepiride 2 mg tablet RxNorm: 271530 1 Tablet(s) PO BID No Start Date 07/17/2017 Inactive Zithromax Z-Maury 250 mg tablet RxNorm: 282873 1 Tablet(s) PO UD No Start Date 08/14/2017 Inactive atenolol 50 mg-chlor thalidone 25 mg tablet RxNorm: 537966 1 Tablet(s) PO daily No Start Date 12/17/2017 Inactive diltiazem CD 360 mg capsule,extended release 24 hr RxNorm: 720335 1 Capsule(s) PO QHS No Start Date [...] Code Item Item Code Result Date %Hba1C Myu498 % HbA1c 47124-3 7.2 % 03/31/2018 %Hba1C Vtw678 Gluc Ave 160 mg/dL 03/31/2018 Lipid Ord30 [...] 31.3 pg 12/22/2017 Cbc With Differential Ord2 [place]% 11.5 % 12/22/2017 Cbc With Differential Ord2 [...] 2.16 K/ul 12/22/2017 Cbc With Differential Ord2 [place] ABS# 1.1 K/ul 12/22/2017 Cbc With Differential Ord2 Eos ABS# 0.1 K/ul 12/22/2017 Cbc With Differential Ord2 Baso ABS# 0.0 K/ul 12/22/2017 Comp Metabolic Auw068 NA 141 mEq/L 12/22/2017 Comp Metabolic Pal976 K 3.9 mEq/L 12/22/2017 Comp Metabolic Yny450 CL 99 mEq/L 12/22/2017 Comp Metabolic Jxy542 CO2 32.0 mEq/L 12/22/2017 Comp Metabolic Kng782 AN ION GAP 14 12/22/2017 Comp Metabolic Tds219 GL UCOSE 152 mg/dL 12/22/2017 Comp Metabolic Xwm521 Cr eat 1.0 mg/dL 12/22/2017 Comp Metabolic Uhr145 eG FR 78 ml/min/1.73m2 12/22 Comp Metabolic Ith286 BUN 27 mg/dL 12/22/2017 Comp Metabolic Ljo165 B/ C Ratio 27.8 Ratio 12/22/2017 Comp Metabolic Unz142 CA LCIUM 9.7 mg/dL 12/22/2017 Comp Metabolic Wno604 AL K PHOS 56 U/L 12/22/2017 Comp Metabolic Spp160 T(SGOT) 18 U/L 12/22/2017 Comp Metabolic Uls702 AL T(SGPT) 20 U/L 12/22/2017 Comp Metabolic Jxz310 BI LI T 0.4 mg/dL 12/22/2017 Comp Metabolic Omc816 AL BUMIN 4.2 g/dL 12/22/2017 Comp Metabolic Hdk141 TP RO 6.4 g/dL 12/22/2017 Comp Metabolic Sph547 GL OB 2.2 g/dL 12/22/2017 Comp Metabolic Zev855 A/ G Ratio 1.9 Ratio 12/22/2017 Comp Metabolic Hip149 Os mo 289 mOsmo 12/22/2017 %Hba1C Tow734 % HbA1c 72989-1 7.1 % 12/22/2017 %Hba1C Dic852 Gluc Ave 157 mg/dL 12/22/2017 Cbc With [...] 93.3 fl 09/22/2017 Cbc With Differential Ord2 [place]% 8.4 % 09/22/2017 Cbc With Differential Ord2 [...] 1.83 K/ul 09/22/2017 Cbc With Differential Ord2 [place] ABS# 0.9 K/ul 09/22/2017 Cbc With Differential Ord2 Eos ABS# 0.0 K/ul 09/22/2017 Cbc With Differential Ord2 Baso ABS# 0.0 K/ul 09/22/2017 %Hba1C Opb935 % HbA1c 84857-8 6.9 % 09/22/2017 %Hba1C Uvb419 Gluc Ave 151 mg/dL 09/22/2017 Tsh Ord6 [...] 31.6 pg 06/17/2017 Cbc With Differential Ord2 [place]% 11.1 % 06/17/2017 Cbc With Differential Ord2 [...] 2.35 K/ul 06/17/2017 Cbc With Differential Ord2 [place] ABS# 1.2 K/ul 06/17/2017 Cbc With Differential Ord2 Eos ABS# 0.1 K/ul 06/17/2017 Cbc With Differential Ord2 Baso ABS# 0.0 K/ul 06/17/2017 %Hba1C Zxb827 % HbA1c 59270-6 7.3 % 06/17/2017 %Hba1C Kqr638 Gluc Ave 163 mg/dL 06/17/2017 Comp Metabolic Hpb669 NA 137 mEq/L 06/17/2017 Comp Metabolic Dcy498 K 3.8 mEq/L 06/17/2017 Comp Metabolic Qab138 CL 98 mEq/L 06/17/2017 Comp Metabolic Eqg054 CO2 30.0 mEq/L 06/17/2017 Comp Metabolic Pvd545 AN ION GAP 13 06/17/2017 Comp Metabolic Xko011 GL UCOSE 157 mg/dL 06/17/2017 Comp Metabolic Mtw117 Cr eat 1.0 mg/dL 06/17/2017 Comp Metabolic Zsn657 eG FR 76 ml/min/1.73m2 06/17 Comp Metabolic Epd402 BUN 18 mg/dL 06/17/2017 Comp Metabolic Aiz614 B/ C Ratio 18.0 Ratio 06/17/2017 Comp Metabolic Hnn969 CA LCIUM 9.8 mg/dL 06/17/2017 Comp Metabolic Xav747 AL K PHOS 57 U/L 06/17/2017 Comp Metabolic Ghw940 T(SGOT) 19 U/L 06/17/2017 Comp Metabolic Ssp660 AL T(SGPT) 23 U/L 06/17/2017 Comp Metabolic Uob380 BI LI T 0.6 mg/dL 06/17/2017 Comp Metabolic Ciu554 AL BUMIN 4.4 g/dL 06/17/2017 Comp Metabolic Ttc136 TP RO 6.8 g/dL 06/17/2017 Comp Metabolic Svg761 GL OB 2.4 g/dL 06/17/2017 Comp Metabolic Ykl742 A/ G Ratio 1.9 Ratio 06/17/2017 Comp Metabolic Jpa827 Os mo 279 mOsmo 06/17/2017 Review of [...] skin Location: scalp 10/08/2017 [place] - right roman catholic, mid fo rehead/scalp, left posterior neck [...] skin Location: scalp 08/27/2017 [place] - right roman catholic, mid fo rehead/scalp - cryotherapy to [...] GLUC MONITOR CONT PH YS I&R CPT-4: 60797 01/27/2018 PPPS, SUBSEQ VISIT CPT- 4: G0439 01/21/2018 GLUCOSE MONITORING CONT CPT-4: 97775 01/06/2018 ADMIN INFLUENZA VIRU S VAC CPT-4: G0008 06/09/2017 FLU VACC PRSV FREE I NC ANTIG CPT-4: 42249 06/09/2017 Vital Signs Date Vital 04/03/2018 Blood Pressure 1: 156/80 Code: 8480-6 BMI: 35.4 Code: 08947-0 Heart Rate 1: 70 bpm Height: 5'8" SpO2: 97% Weight: 233 lbs 01/27/2018 BMI: 35.6 Code: 22171-4 Heart Rate 1: 86 bpm Height: 5'8" SpO2: 98% Weight: 234 lbs 01/21/2018 Heigh t: Weight: 01/06/2018 Heigh t: Weight: 12/31/2017 Blood Pressure 1: 140/86 Code: 8480-6 BMI: 34.2 Code: 12969-1 Heart Rate 1: 80 bpm Height: 5'8" SpO2: 98% Weight: 225 lbs 10/08/2017 Blood Pressure 1: 152/74 Code: 8480-6 BMI: 34.2 Code: 60195-2 Heart Rate 1: 67 bpm Height: 5'8" SpO2: 98% Weight: 225 lbs 08/27/2017 Blood Pressure 1: 144/82 Code: 8480-6 BMI: 34.2 Code: 77846-0 Heart Rate 1: 70 bpm Height: 5'8" SpO2: 98% Weight: 225 lbs 06/10/2017 Blood Pressure 1: 150/84 Code: 8480-6 BMI: 35.0 Code: 08771-7 Heart Rate 1: 67 bpm Height: 5'8" SpO2: 98% Weight: 230 lbs 05/20/2017 Blood Pressure 1: 146/76 Code: 8480-6 BMI: 35.3 Code: 02171-8 Heart Rate 1: 70 bpm Height: 5'8" [...] for a long time " hypertension Quality [facility] 05/20/2017 None hypertension Onset and [...] Encounters Encounter Performer Loca tion Codes Date 41972 EST. PATIENT, LEVEL III Diagnosis: Type 2 diabetes mellitus with hyperglycemia[ICD10: E11.65] Diagnosis: Other fatigue[ICD10: R53.83] Diagnosis: Other malaise[ICD10: R53.81] Diagnosis: Bitten or stung by nonvenomous insect and other nonvenomous arthropods, initial encounter[ICD10: W57.XXXA] Diagnosis: Cellulitis of right upper limb[ICD10: L03.113] Diagnosis: Mixed hyperlipidemia[ICD10: E78.2] Laney Guerrero MD, [facility] CPT-4: 28186 04/03/2018 ([id number]) 87480 EST. P ATIENT, LEVEL III Diagnosis: Type 2 diabetes mellitus with hyperglycemia[ICD10: E11.65] Laney Guerrero MD, [facility] CPT-4: 95009 01/27/2018 ([id number]) Miscellaneou s no charge Diagnosis: Type 2 diabetes mellitus with hyperglycemia[ICD10: E11.65] Laney Guerrero MD, [facility] CPT-4: 26123 01/13/2018 [id number] EST. PATIENT, LEVEL III Diagnosis: Type 2 diabetes mellitus with hyperglycemia[ICD10: E11.65] Diagnosis: Essential (primary) hypertension[ICD10: I10] Diagnosis: Mixed hyperlipidemia[ICD10: E78.2] Laney Guerrero MD, [facility] CPT-4: 22466 12/31/2017 [id number] EST. PATIENT, LEVEL III Diagnosis: Type 2 diabetes mellitus with hyperglycemia[ICD10: E11.65] Diagnosis: Essential (primary) hypertension[ICD10: I10] Diagnosis: Mixed hyperlipidemia[ICD10: E78.2] Diagnosis: Actinic keratosis[ICD10: L57.0] Laney Guerrero MD, [facility] CPT-4: 44142 10/08/2017 [id number] EST. PATIENT, LEVEL III Diagnosis: Type 2 diabetes mellitus with hyperglycemia[ICD10: E11.65] Diagnosis: Essential (primary) hypertension[ICD10: I10] Diagnosis: Mixed hyperlipidemia[ICD10: E78.2] Diagnosis: Actinic keratosis[ICD10: L57.0] [facility] CPT-4: 43132 08/27/2017 [id number] EST. PATIENT, LEVEL III Diagnosis: Type 2 diabetes mellitus with hyperglycemia[ICD10: E11.65] Diagnosis: Essential (primary) hypertension[ICD10: I10] Diagnosis: Mixed hyperlipidemia[ICD10: E78.2] [facility] CPT-4: 96832 06/25/2017 ([id number]) 79130 EST. 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 04/03/2018 [facility]ment[facility] [phone] [facility] [place] (15 min) Moderate 04/03/2018 Patient Education: [...] [facility] [phone] [facility] [place] (30 min) Complex 01/27/2018 [...] Completed 01/21/2018 Appointment: Laney Luther WPtel: [phone] [facility] (15 min) Moderate 01/13/2018 Patient Education: Patient [...] control. 01/06/2018 Appointment: Lane[facility] Luther [facility] [phone] [facility] [place] (15 min) Moderate 01/06/2018 [...] to medications. 12/31/2017 Appointment: Laney Luther WPtel: [facility] (30 min) [facility] 12/31/2017 Patient Education: Patient Medication Summary [...] acute concerns. 08/27/2017 Appointment: Lane[facility] Luther [facility] [phone] [facility] (30 min) [...] 06/25/2017 Appointment: Lane[facility] Luther [facility]el[facility] [phone] [facility] (30 min) Complex 06/25/2017 Patient Education: Patient Medication Summary Completed 06/25/2017 Appointment: [facility] [phone] [phone] [place] (30 min) Complex 06/24/2017 Visit Plan: [...] medications. 06/10/2017 Appointment: Debra Ramirez WPtel: [phone] [phone] (30 min) Complex 06/10/2017 Patient Education: [...] control. 05/20/2017 Appointment: Lane[facility] Luther [facility] [phone] [facility] New Patient 05/20/2017 Patient Education: Patient Medication [...] response to medications. GET RECENT LABS FROM [facility] NEXT WEEK UNLESS WE CALL [...]
--- OUTSIDE RECORDS SUMMARY | 2020-02-09 07:28 | XMS REPORT | Continuity of Care Document ---
Author Organization Unknown Address Unknown Phone Unavailable Allergies Active Description Code Type Severity Reaction Onset Reported/Identified Relationship to Patient Clinical Status Yes PENICILLIN G POTASSIUM UNKNOWN DERMATOLOGICAL - HIV Yes Penicillins [id number] Drug Aller gy Unknown HIVES 12/06/2016 Yes Penicillins [id number] Drug Aller gy Unknown HIVES, PT ANURAG 12/11/2016 Medications There is no data. Problems Date Dx Coded Attending Type Code Diagnosis Diagnosed By 11/16/2014 KALA MERAZ DO Ot 327. 23 OBSTRUCTIVE SLEEP APNEA (ADULT) (PEDIATR 11/16/2014 KALA MERAZ DO Ot 427. 2 PAROX TACHYCARDIA NOS 11/17/2014 Ot 278.00 11/17/2014 Ot 780.54 11/17/2014 Ot 786.09 11/17/2014 Ot 786.2 11/22/2014 Ot 278.00 11/22/2014 Ot 780.54 11/22/2014 Ot 786.09 11/22/2014 Ot 786.2 11/22/2014 Ot 278.00 11/22/2014 Ot 780.54 11/22/2014 Ot 786.09 11/22/2014 Ot 786.2 03/03/2015 RAMY DPAZUCENA Domínguez Ot 727.1 BUNION 03/03/2015 AZUCENA MCCANN DPM Ot V58.69 OT MED,LT,CURRENT USE 03/22/2015 RAMY DPAZUCENA Domínguez Ot 727.1 03/22/2015 AZUCENA MCCANN DPM Ot V72.84 03/22/2015 AZUCENA MCCANN DPM Ot V74.8 06/14/2016 Ot 278.00 OBE SITY, NOS 06/14/2016 Ot 780.54 HYP ERSOMNIA, UNSPECIFIED 06/14/2016 Ot 786.09 RES PIRATORY ABNORM NEC 06/14/2016 Ot 786.2 COUGH 06/14/2016 RAMY DPAZUCENA Domínguez Ot 727.1 BUNION 06/14/2016 AZUCENA MCCANN DPM Ot V72.84 EXAM PRE-OPERATIVE NOS 06/14/2016 MCCANN DPM, AZUCENA Walker Ot V74.8 SCREEN-BACTERIAL DIS NEC 06/14/2016 GIULIANO, FRANCISCO J BACCARAT DEALER Ot H93.12 TINNITUS, LEFT EAR 06/17/2016 GIULIANO, FRANCISCO J BACCARAT DEALER Ot H93.11 TINNITUS, RIGHT EAR 06/17/2016 GIULIANO, FRANCISCO J BACCARAT DEALER Ot H93.12 TINNITUS, LEFT EAR 06/18/2016 GIULIANO, FRANCISCO J BACCARAT DEALER Ot H93.11 TINNITUS, RIGHT EAR 06/18/2016 GIULIANO, FRANCISCO J BACCARAT DEALER Ot E04.9 NONTOXIC GOITER, UNSPECIFIED 06/18/2016 GIULIANO, FRANCISCO J BACCARAT DEALER Ot H93.12 TINNITUS, LEFT EAR 06/18/2016 GILUIANO, FRANCISCO J BACCARAT DEALER Ot 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 06/21/2016 GIULIANO, FRANCISCO J BACCARAT DEALER Ot H93.11 TINNITUS, RIGHT EAR 07/08/2016 GIULIANO, FRANCISCO J BACCARAT DEALER Ot E04.9 NONTOXIC GOITER, UNSPECIFIED 07/08/2016 GIULIANO, FRANCISCO J BACCARAT DEALER Ot H93.12 TINNITUS, LEFT EAR 07/08/2016 GIULIANO, FRANCISCO J BACCARAT DEALER Ot 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 07/16/2016 GIULIANO, FRANCISCO J BACCARAT DEALER Ot H93.11 TINNITUS, RIGHT EAR 09/02/2016 RAMY DPM, AZUCENA Walker Ot 727.1 BUNION 09/02/2016 RAMY DPSang, AZUCENA Walker Ot V72.84 EXAM PRE-OPERATIVE NOS 09/02/2016 RAMY DPM, AZUCENA Walker Ot V74.8 SCREEN-BACTERIAL DIS NEC 09/02/2016 GIULIANO, FRANCISCO J BACCARAT DEALER Ot E04.9 NONTOXIC GOITER, UNSPECIFIED 09/02/2016 GIULIANO, FRANCISCO J BACCARAT DEALER Ot H93.12 TINNITUS, LEFT EAR 09/02/2016 GIULIANO, FRANCISCO J BACCARAT DEALER Ot 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 09/02/2016 GIULIANO, FRANCISCO J BACCARAT DEALER Ot H93.11 TINNITUS, RIGHT EAR 09/02/2016 CONSUELO TEMPLETON, MARTHA Ulrich Ot N40.0 BENIGN PROSTATIC HYPERPLASIA WITHOUT LOW 09/02/2016 MARTHA CORDERO MD Ot Z01.8 18 ENCOUNTER FOR OTHER PREPROCEDURAL EXAMIN 09/02/2016 MARTHA CORDERO MD Ot Z11.2 ENCOUNTER FOR SCREENING FOR OTHER BACTER 09/03/2016 MARTHA CORDERO MD Ot N40.0 BENIGN PROSTATIC HYPERPLASIA WITHOUT LOW 09/03/2016 MARTHA CORDERO MD Ot Z01.8 18 ENCOUNTER FOR OTHER PREPROCEDURAL EXAMIN 09/03/2016 MARTHA CORDERO MD Ot Z11.2 ENCOUNTER FOR SCREENING FOR OTHER BACTER 09/05/2016 MARTHA CORDERO MD Ot E11.9 TYPE 2 DIABETES MELLITUS WITHOUT COMPLIC 09/05/2016 MARTHA CORDERO MD Ot N40.1 BENIGN PROSTATIC HYPERPLASIA WITH LOWER 09/05/2016 MARTHA CORDERO MD Ot R33.8 OTHER RETENTION OF URINE 09/06/2016 MARTHA CORDERO MD Ot E11.9 TYPE 2 DIABETES MELLITUS WITHOUT COMPLIC 09/06/2016 MARTHA CORDERO MD Ot N40.1 BENIGN PROSTATIC HYPERPLASIA WITH LOWER 09/06/2016 MARTHA CORDERO MD Ot R33.8 OTHER RETENTION OF URINE 09/09/2016 MARTHA CORDERO MD Ot E11.9 TYPE 2 DIABETES MELLITUS WITHOUT COMPLIC 09/09/2016 MARTHA CORDERO MD Ot N40.1 BENIGN PROSTATIC HYPERPLASIA WITH LOWER 09/09/2016 MARTHA CORDERO MD Ot R33.8 OTHER RETENTION OF URINE 09/17/2016 MARTHA CORDERO MD Ot R31.0 GROSS HEMATURIA 09/17/2016 MARTHA CORDERO MD Ot R33.9 RETENTION OF URINE, UNSPECIFIED 09/17/2016 MARTHA CORDERO MD Ot R31.0 GROSS HEMATURIA 09/17/2016 MARTHA CORDERO MD Ot R33.9 RETENTION OF URINE, UNSPECIFIED 11/15/2016 MARTHA CORDERO MD Ot R31.0 GROSS HEMATURIA 11/15/2016 MARTHA CORDERO MD Ot R33.9 RETENTION OF URINE, UNSPECIFIED 12/06/2016 RAMY DPM, AZUCENA Walker Ot 727.1 BUNION 12/06/2016 RAMY DPM, AZUCENA Walker Ot V72.84 EXAM PRE-OPERATIVE NOS 12/06/2016 RAMY DPM, AZUCENA Walker Ot V74.8 SCREEN-BACTERIAL DIS NEC 12/06/2016 GIULIANO FRANCISCO Sallie BACCARAT DEALER Ot E04.9 NONTOXIC GOITER, UNSPECIFIED 12/06/2016 GIULIANO FRANCISCO Sallie BACCARAT DEALER Ot H93.12 TINNITUS, LEFT EAR 12/06/2016 GIULIANO FRANCISCO J BACCARAT DEALER Ot 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 12/06/2016 GIULIANO FRANCISCO J BACCARAT DEALER Ot H93.11 TINNITUS, RIGHT EAR 12/06/2016 CONSUELO TEMPLETON, MARTHA Ulrich Ot N32.0 BLADDER-NECK OBSTRUCTION 12/06/2016 CONSUELO TEMPLEOTN, MARTHA Ulrich Ot Z01.8 18 ENCOUNTER FOR OTHER PREPROCEDURAL EXAMIN 12/06/2016 CONSUELO TEMPLETON, MARTHA Ulrich Ot Z11.2 ENCOUNTER FOR SCREENING FOR OTHER BACTER 12/11/2016 CONSUELO TEMPLETON, MARTHA Ulrich Ot E11.9 TYPE 2 DIABETES MELLITUS WITHOUT COMPLIC 12/11/2016 CONSUELO TEMPLETON, MARTHA Ulrich Ot N32.0 BLADDER-NECK OBSTRUCTION 12/13/2016 CONSUELO TEMPLETON, MARTHA Ulrich Ot E11.9 TYPE 2 DIABETES MELLITUS WITHOUT COMPLIC 12/13/2016 CONSUELO TEMPLETON, MARTHA Ulrich Ot N32.0 BLADDER-NECK OBSTRUCTION 12/13/2016 CONSUELO TEMPLETON, MARTHA Ulrich Ot E11.9 TYPE 2 DIABETES MELLITUS WITHOUT COMPLIC 12/13/2016 CONSUELO TEMPLETON, MARTHA Ulrich Ot N32.0 BLADDER-NECK OBSTRUCTION 12/19/2016 CONSUELO TEMPLETON, MARTHA Ulrich Ot E11.9 TYPE 2 DIABETES MELLITUS WITHOUT COMPLIC 12/19/2016 CONSUELO TEMPLETON, MARTHA Ulrich Ot N32.0 BLADDER-NECK OBSTRUCTION 2018 RAMY DPSang, AZUCENA Walker Ot 727.1 BUNION 2018 RAMY DPSang, AZUCENA Walker Ot V72.84 EXAM PRE-OPERATIVE NOS 2018 RAMY DPM, AZUCENA Walker Ot V74.8 SCREEN-BACTERIAL DIS NEC 2018 GIULIANO FRANCISCO Sallie BACCARAT DEALER Ot E04.9 NONTOXIC GOITER, UNSPECIFIED 2018 GIULIANO FRANCISCO Sallie BACCARAT DEALER Ot H93.12 TINNITUS, LEFT EAR 2018 FRANCISCO NOBLES BACCARAT DEALER Ot 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 2018 FRANCISCO NOBLES BACCARAT DEALER Ot H93.11 TINNITUS, RIGHT EAR 07/23/2018 KELLY TAVERA ACID CRANE OPERATOR Ot E66.9 OBESITY, UNSPECIFIED 07/23/2018 KELLY TAVERA ACID CRANE OPERATOR Ot F39 UNSPECIFIED MOOD [AFFECTIVE] DISORDER 07/23/2018 KELLY TAVERA ACID CRANE OPERATOR Ot R06.2 WHEEZING 07/23/2018 KELLY TAVERA ACID CRANE OPERATOR Ot R06.83 SNORING 07/23/2018 KELLY TAVERA ACID CRANE OPERATOR Ot Z78.9 OTHER SPECIFIED HEALTH STATUS 07/23/2018 KELLY TAVERA ACID CRANE OPERATOR Ot Z87.891 PERSONAL HISTORY OF NICOTINE DEPENDENCE 08/15/2018 KELLY TAVERA ACID CRANE OPERATOR Ot E66.9 OBESITY, UNSPECIFIED 08/15/2018 LIANGKELLY BECKER E ACID CRANE OPERATOR Ot F39 UNSPECIFIED MOOD [AFFECTIVE] DISORDER 08/15/2018 KELLY TAVERA ACID CRANE OPERATOR Ot R06.2 WHEEZING 08/15/2018 KELLY TAVERA ACID CRANE OPERATOR Ot R06.83 SNORING 08/15/2018 KELLY TAVERA ACID CRANE OPERATOR Ot Z78.9 OTHER SPECIFIED HEALTH STATUS 08/15/2018 KELLY TAVERA ACID CRANE OPERATOR Ot Z87.891 PERSONAL HISTORY OF NICOTINE DEPENDENCE 06/09/2019 JACK TEMPLETON, SAVANA Ulrich Ot M16.0 BILATERAL PRIMARY OSTEOARTHRITIS OF HIP 06/09/2019 JACK TEMPLETON, SAVANA Ulrich Ot M47.816 SPONDYLOSIS W/O MYELOPATHY OR RADICULOPA 06/09/2019 SAVANA SANTIAGO MD Ot M48.061 SPINAL STENOSIS, LUMBAR REGION WITHOUT N 06/09/2019 SAVANA SANTIAGO MD Ot 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, NEC, LUMBAR REGION, 06/09/2019 SAVANA SANTIAGO MD Ot M51.27 OTHER INTERVERTEBRAL DISC DISPLACEMENT, 06/10/2019 SAVANA SANTIAGO MD Ot M25.551 PAIN IN RIGHT HIP 06/30/2019 SAVANA SANTIAGO MD Ot M16.0 BILATERAL PRIMARY OSTEOARTHRITIS OF HIP 06/30/2019 SAVANA SANTIAGO MD Ot M47.816 SPONDYLOSIS W/O MYELOPATHY OR RADICULOPA 06/30/2019 JACK TEMPLETON, SAVANA Ulrich Ot M48.061 SPINAL STENOSIS, LUMBAR REGION WITHOUT N 06/30/2019 JACK TEMPLETON, SAVANA Ulrich Ot 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, NEC, LUMBAR REGION, 06/30/2019 JACK TEMPLETON, SAVANA Ulrich Ot M51.27 OTHER INTERVERTEBRAL DISC DISPLACEMENT, 10/15/2019 W E11.65 Typ e 2 diabetes mellitus with hyperglycemia [facility] 10/15/2019 W E78.2 Mixe d hyperlipidemia [facility] 10/15/2019 W I10 Essent ial (primary) hypertension [facility] 10/15/2019 W E11.65 Typ e 2 diabetes mellitus with hyperglycemia [facility] 10/15/2019 W I10 Essent ial (primary) hypertension [facility] 01/24/2020 W I10 Essent ial (primary) hypertension [facility] 01/24/2020 W I20.8 Stab le angina pectoris [facility] 01/31/2020 CRISTINO TEMPLETON, WINDY Rizo Ot E11. 9 TYPE 2 DIABETES MELLITUS WITHOUT COMPLIC 01/31/2020 CRISTINO TEMPLETON, WINDY Rizo Ot E78. 2 MIXED HYPERLIPIDEMIA 01/31/2020 CRISTINO TEMPLETON, WINDY Rizo Ot I11. 9 HYPERTENSIVE HEART DISEASE WITHOUT HEART 01/31/2020 WINDY GREGG MD Ot I34. 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 01/31/2020 GIULIANO, FRANCISCO J BACCARAT DEALER Ot H93.11 TINNITUS, RIGHT EAR 01/31/2020 KELLY TAVERA ACID CRANE OPERATOR Ot E66.9 OBESITY, UNSPECIFIED 01/31/2020 KELLY TAVERA ACID CRANE OPERATOR Ot F39 UNSPECIFIED MOOD [AFFECTIVE] DISORDER 01/31/2020 KELLY TAVERA ACID CRANE OPERATOR Ot R06.2 WHEEZING 01/31/2020 KELLY TAVERA ACID CRANE OPERATOR Ot R06.83 SNORING 01/31/2020 KELLY TAVERA ACID CRANE OPERATOR Ot Z78.9 OTHER SPECIFIED HEALTH STATUS 01/31/2020 LIANGKELLY ACID CRANE OPERATOR Ot Z87.891 PERSONAL HISTORY OF NICOTINE DEPENDENCE 01/31/2020 SAVANA SANTIAGO MD Ot M25.551 PAIN IN RIGHT HIP 01/31/2020 SAVANA SANTIAGO MD Ot M16.0 BILATERAL PRIMARY OSTEOARTHRITIS OF HIP 01/31/2020 SAVANA SANTIAGO MD, Ot M47.816 SPONDYLOSIS W/O MYELOPATHY OR RADICULOPA 01/31/2020 SAVANA SANTIAGO MD Ot M48.061 SPINAL STENOSIS, LUMBAR REGION WITHOUT N 01/31/2020 SAVANA SANTIAGO MD Ot 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, NEC, LUMBAR REGION, 01/31/2020 SAVANA SANTIAGO MD Ot M51.27 OTHER INTERVERTEBRAL DISC DISPLACEMENT, 01/31/2020 WINDY GREGG MD Ot E11. 9 TYPE 2 DIABETES MELLITUS WITHOUT COMPLIC 01/31/2020 WINDY GREGG MD Ot E78. 2 MIXED HYPERLIPIDEMIA 01/31/2020 WINDY GREGG MD Ot I11. 9 HYPERTENSIVE HEART DISEASE WITHOUT HEART 01/31/2020 WINDY GREGG MD Ot I34. 0 NONRHEUMATIC MITRAL (VALVE) INSUFFICIENC 02/07/2020 W E78.2 Mixe d hyperlipidemia [facility] 02/07/2020 W I10 Essent ial (primary) hypertension [facility] Procedures There is no data. Results Test Result Range Automated blood complete blood count (he mogram) panel - 06/17/16 07:55 Blood leukocytes automated count (number/volume) 8.5 10*3/uL 4.3-11.0 Blood erythrocytes automated count (number/volume) 4.45 10*6/uL 4.35-5.85 Venous blood hemoglobin measurement (mass/volume) 14.2 g/dL 13.3-17.7 Blood hematocrit (volume fraction) 41 % 40-54 Automated erythrocyte mean corpuscular volume 93 [ foz_us] 80-99 Automated erythrocyte mean corpuscular h emoglobin (mass per erythrocyte) 32 pg 25-34 Automated erythrocyte mean corpuscular h emoglobin concentration measurement (mass/volume) 34 g/dL 32-36 Automated erythrocyte distribution width ratio 12. 5 % 10.0- 14.5 Automated blood platelet count (count/volume) 223 10*3/uL 130-400 Automated blood platelet mean volume measurement 10.9 [foz_us] 7.4-10.4 Erythrocyte sedimentation rate by ezra gren method - 06/17/16 07:55 Erythrocyte sedimentation rate by westergren method 11 mm 0- 30 [id number] - 06/17/16 07:55 Serum or plasma urea nitrogen measurement (mass/volume ) 18 mg/dL 7-18 Serum or plasma creatinine measurement (mass/volume) 1.08 mg/dL 0.60-1.30 Serum or plasma urea nitrogen/creatinine mass ratio 17 NRG Serum or plasma creatinine measurement w ith calculation of estimated glomerular filtration rate > NRG THYROID STIMULATING HORMONE - 06/17/16 0 7:55 THYROID STIMULATING HORMONE 1.82 u[iU]/mL 0.35-4.94 Serum or plasma thyroxine (T4) free linda urement (mass/volume) - 06/17/16 07:55 Serum or plasma thyroxine (T4) free measurement (mass/ volume) 0.94 ng/dL 0.70-1.48 Microalbumin - 08/20/16 08:22 Microalb 11.0 mg/L 0.0-20.0 Methicillin resistant Staphylococcus aur eus (MRSA) screening culture - 09/02/16 11:49 Methicillin resistant Staphylococcus aureus (MRSA) scr eening culture NEG NRG Capillary blood glucose measurement by g lucometer (mass/volume) - 09/04/16 07:42 Capillary blood glucose measurement by glucometer (mas s/volume) 144 mg/dL 70-110 Blood type T Indirect antibody screen pa meghan - 09/04/16 07:43 ABO+Rh group OP NRG Transfusion band number [id number] NRG Blood group antibody screen NEGATIVE NR G Complete blood count (CBC) with automate d white blood cell (WBC) differential - 09/04/16 08:27 Blood leukocytes automated count (number/volume) 8.8 10*3/uL 4.3-11.0 Blood erythrocytes automated count (number/volume) 4.38 10*6/uL 4.35-5.85 Venous blood hemoglobin measurement (mass/volume) 13.5 g/dL 13.3-17.7 Blood hematocrit (volume fraction) 40 % 40-54 Automated erythrocyte mean corpuscular volume 92 [ foz_us] 80-99 Automated erythrocyte mean corpuscular h emoglobin (mass per erythrocyte) 31 pg 25-34 Automated erythrocyte mean corpuscular h emoglobin concentration measurement (mass/volume) 34 g/dL 32-36 Automated erythrocyte distribution width ratio 12. 6 % 10.0- 14.5 Automated blood platelet count (count/volume) 218 10*3/uL 130-400 Automated blood platelet mean volume measurement 10.8 [foz_us] 7.4-10.4 Automated blood neutrophils/100 leukocytes 72 % 42-75 Automated blood lymphocytes/100 leukocytes 19 % 12-44 Blood monocytes/100 leukocytes 8 % 0-12 Automated blood eosinophils/100 leukocytes 1 % 0-10 Automated blood basophils/100 leukocytes 0 % 0-10 Blood neutrophils automated count (number/volume) 6.3 10*3 1.8-7.8 Blood lymphocytes automated count (number/volume) 1.7 10*3 1.0-4.0 Blood monocytes automated count (number/volume) 0. 7 10*3 0.0-1.0 Automated eosinophil count 0.1 10*3/uL 0 .0-0.3 Automated blood basophil count (count/volume) 0.0 10*3/uL 0.0-0.1 Capillary blood glucose measurement by g lucometer (mass/volume) - 09/04/16 20:27 Capillary blood glucose measurement by glucometer (mas s/volume) 158 mg/dL 70-110 Capillary blood glucose measurement by g lucometer (mass/volume) - 09/05/16 04:59 Capillary blood glucose measurement by glucometer (mas s/volume) 121 mg/dL 70-110 Capillary blood glucose measurement by g lucometer (mass/volume) - 09/05/16 16:11 Capillary blood glucose measurement by glucometer (mas s/volume) 157 mg/dL 70-110 Complete blood count (CBC) with automate d white blood cell (WBC) differential - 09/15/16 10:18 Blood leukocytes automated count (number/volume) 9.7 10*3/uL 4.3-11.0 Blood erythrocytes automated count (number/volume) 4.41 10*6/uL 4.35-5.85 Venous blood hemoglobin measurement (mass/volume) 13.8 g/dL 13.3-17.7 Blood hematocrit (volume fraction) 40 % 40-54 Automated erythrocyte mean corpuscular volume 91 [ foz_us] 80-99 Automated erythrocyte mean corpuscular h emoglobin (mass per erythrocyte) 31 pg 25-34 Automated erythrocyte mean corpuscular h emoglobin concentration measurement (mass/volume) 34 g/dL 32-36 Automated erythrocyte distribution width ratio 12. 7 % 10.0- 14.5 Automated blood platelet count (count/volume) 261 10*3/uL 130-400 Automated blood platelet mean volume measurement 10.7 [foz_us] 7.4-10.4 Automated blood neutrophils/100 leukocytes 69 % 42-75 Automated blood lymphocytes/100 leukocytes 18 % 12-44 Blood monocytes/100 leukocytes 10 % 0-12 Automated blood eosinophils/100 leukocytes 3 % 0-10 Automated blood basophils/100 leukocytes 0 % 0-10 Blood neutrophils automated count (number/volume) 6.7 10*3 1.8-7.8 Blood lymphocytes automated count (number/volume) 1.7 10*3 1.0-4.0 Blood monocytes automated count (number/volume) 1. 0 10*3 0.0-1.0 Automated eosinophil count 0.3 10*3/uL 0 .0-0.3 Automated blood basophil count (count/volume) 0.0 10*3/uL 0.0-0.1 Comprehensive metabolic panel - 09/15/16 10:18 Serum or plasma sodium measurement (moles/volume) 137 mmol/L 135-145 Serum or plasma potassium measurement (moles/volume) 3.7 mmol/L 3.6-5.0 Serum or plasma chloride measurement (moles/volume) 100 mmol/L 98-107 Carbon dioxide 25 mmol/L 21-32 Serum or plasma anion gap determination (moles/volume) 12 mmol/L 5-14 Serum or plasma urea nitrogen measurement (mass/volume ) 22 mg/dL 7-18 Serum or plasma creatinine measurement (mass/volume) 1.05 mg/dL 0.60-1.30 Serum or plasma urea nitrogen/creatinine mass ratio 21 NRG Serum or plasma creatinine measurement w ith calculation of estimated glomerular filtration rate > NRG Serum or plasma glucose measurement (mass/volume) 190 mg/dL 70-105 Serum or plasma calcium measurement (mass/volume) 9.4 mg/dL 8.5-10.1 Serum or plasma total bilirubin measurement (mass/volu me) 0.3 mg/dL 0.1-1.0 Serum or plasma alkaline phosphatase aquilino surement (enzymatic activity/volume) 59 U/L 40-136 Serum or plasma aspartate aminotransfera se measurement (enzymatic activity/volume) 20 U/L 5-34 Serum or plasma alanine aminotransferase measurement (enzymatic activity/volume) 25 U/L 0-55 Serum or plasma protein measurement (mass/volume) 6.8 g/dL 6.4-8.2 Serum or plasma albumin measurement (mass/volume) 4.2 g/dL 3.2-4.5 Complete urinalysis with reflex to cultu re - 09/15/16 10:51 Urine color determination BROWN NRG Urine clarity determination VERY CLOUDY NRG Urine pH measurement by test strip 7 5-9 Specific gravity of urine by test strip 1.010 1.016-1.022 Urine protein assay by test strip, semi-quantitative 3+ NEGATIVE Urine glucose detection by automated test strip 2+ NEGATIVE Erythrocytes detection in urine sediment by light micr oscopy 5+ NEGATIVE Urine ketones detection by automated test strip NE GATIVE NEGATIVE Urine nitrite detection by test strip NEGATIVE NEGATIVE Urine total bilirubin detection by test strip NEGA TIVE NEGATIVE Urine urobilinogen measurement by automated test strip (mass/volume) NORMAL NORMAL Urine leukocyte esterase detection by dipstick 2+ NEGATIVE Automated urine sediment erythrocyte cou nt by microscopy (number/high power field) TNTC NRG Automated urine sediment leukocyte count by microscopy (number/high power field) [HPF] NRG Bacteria detection in urine sediment by light microsco py NEGATIVE NRG Squamous epithelial cells detection in u rine sediment by light microscopy NONE NRG Crystals detection in urine sediment by light microsco py NONE NRG Casts detection in urine sediment by light microscopy NONE NRG Mucus detection in urine sediment by light microscopy NEGATIVE NRG Complete urinalysis with reflex to culture YES NRG Bacterial urine culture - 09/15/16 10:51 Bacterial urine culture NG NRG Methicillin resistant Staphylococcus aur eus (MRSA) screening culture - 12/06/16 10:30 Methicillin resistant Staphylococcus aureus (MRSA) scr eening culture NEG NRG Capillary blood glucose measurement by g lucometer (mass/volume) - 12/11/16 07:18 Capillary blood glucose measurement by glucometer (mas s/volume) 164 mg/dL 70-110 IFOBT Occult Blood,Screening - 04/16/17 13:57 IFOBT Screen Negative Negative Coronavirus SARS-CoV-2 SO 2018 - 0 07:50 Coronavirus Ab [Units/volume] in Serum Negative Negative Encounters ACCT No. Visit Date/Time Discharge Status Pt. Type Provider Facility Loc./Unit Complaint [id number] 04/16/2017 13:56:00 04/16/2017 23:59: 00 DIS Outpatient Marbin Alcocer [id number] 04/03/2017 15:15:00 04/03/2017 23:59: 00 DIS Outpatient Marbin Alcocer [id number] 08/20/2016 08:49:00 08/20/2016 23:59: 00 DIS Outpatient Suzette Pittman [id number] 06/24/2017 23:10:17 06/24/2017 23:59:5 9 CLS Outpatient [id number] 01/26/2020 10:11:00 23:59:59 CLS Outpatient WINDY GREGG MD Via [facility] CARD HTN [id number] 06/07/2019 14:43:00 23:59:59 CLS Outpatient SAVANA SANTIAGO MD [facility] RAD LOW BACK PAIN, RIGHT H IP PAIN [id number] 05/18/2019 14:26:00 23:59:59 CLS Outpatient SAVANA SANTIAGO MD [facility] RAD RIGHT HIP PAIN [id number] 2018 11:25:00 23:59:59 CLS Outpatient KELLY TAVERA APRN [facility] RAD WHEEZING,SNORING,OBESITY,MOOD DISORDER [id number] 07/07/2018 12:20:00 018 23:59:59 CLS Preadmit KELLY TAVERA APRN [facility] RT WHEEZING,SNORING,OBESITY,MOOD DISORDER [id number] 12/11/2016 06:25:00 017 13:10:00 DIS Outpatient MARTHA CORDERO MD [facility] BLADDER NECK CONTRACTUR E [id number] 12/06/2016 10:06:00 017 11:36:00 DIS Outpatient CONSUELO TEMPLETONMARTHA [facility] PREOP BLADDER NECK CONTRACTUR E [id number] 09/15/2016 12:30:00 017 11:13:00 DIS Inpatient MARTHA CORDERO MD Serg [facility] 4TH POST-OP TURP BLEEDING [id number] 09/04/2016 06:35:00 017 18:30:00 DIS Outpatient TENISHA CORDERO MDMIK Ulrich [facility] BPH [id number] 09/02/2016 11:19:00 017 11:55:00 DIS Outpatient MARTHA CORDERO MD Serg [facility] PREOP BPH [id number] 06/17/2016 07:44:00 016 23:59:59 CLS Outpatient GIULIANO, FRANCISCO J BACCARAT DEALER Via [facility] RAD PULSATILE TINNI TUS [id number] 06/14/2016 12:01:00 016 23:59:59 CLS Outpatient GIULIANO, FRANCISCO J BACCARAT DEALER [facility] RAD ENLARGED THYROI D,PULSATILE TINNITUS [id number] 03/03/2015 07:29:00 015 12:08:00 DIS Outpatient AZUCENA MCCANN DPM [facility] LILA BUNION D EFORMITY [id number] 02/27/2015 08:46:00 015 23:59:59 CLS Outpatient AZUCENA MCCANN DPM [facility] PREOP LILA BUINION DEFORMITY LEFT FOOT [id number] 11/15/2014 20:40:00 015 06:45:00 DIS Outpatient KALA MERAZ DO [facility] SLEEP JAY,SNORING,HTN [id number] 02/09/2020 09:00:00 P EN Preadmit WINDY GREGG MD [facility] CATH CP,ABN STRESS TEST,HTN,HLP [id number] 02/07/2020 06:45:[address] Outpatient WINDY GREGG MD [facility] LABNPT [id number] 10/10/2014 14:28:00 Document Registration
[2020-02-09 07:29] LABS: HEMOGLOBIN 14.8 G/DL (13.3-17.7); MEAN PLATELET VOLUME 11.1 FL (7.4-10.4); RED CELL DISTRIBUTION WIDTH 13.1 % (10.0-14.5); WHITE BLOOD COUNT 9.6 10^3/uL (4.3-11.0)
[2020-02-09 07:41] LABS: INR 0.9 (0.8-1.4); PROTHROMBIN TIME PATIENT 12.9 SEC (12.2-14.7)
[2020-02-09 07:48] LABS: ALANINE AMINOTRANSFERASE 24 U/L (0-55); ALBUMIN 4.6 GM/DL (3.2-4.5); ALKALINE PHOSPHATASE 60 U/L (40-136); BILIRUBIN,TOTAL 0.6 MG/DL (0.1-1.0); BUN/CREATININE RATIO 17; CALCIUM 9.6 MG/DL (8.5-10.1); CARBON DIOXIDE 26 MMOL/L (21-32); CHLORIDE 98 MMOL/L (98-107); CREATININE SERUM 1.36 MG/DL (0.60-1.30); GFR ESTIMATED 50; GLUCOSE 150 MG/DL (70-105); POTASSIUM 3.4 MMOL/L (3.6-5.0); SODIUM 137 MMOL/L (135-145); TOTAL PROTEIN 7.8 GM/DL (6.4-8.2)
--- NOTE | 2020-02-09 07:53 | Diagnostic Imaging Report ---
INDICATION: Preop. Chest pain. Abnormal stress test. Hypertension Upright chest shows normal heart size and vascularity. The lungs are clear. There is no effusion or pneumothorax. IMPRESSION: No acute abnormality is seen with no change from 10/10/2014. Dictated by: Dictated on workstation # [id number]
[2020-02-09] MEDS ORDERED: NF-METANX PO (07:54)
[2020-02-09] MEDS ORDERED: ATEN1TAB3 PO (07:54)
[2020-02-09] MEDS ORDERED: SITA100T12 PO (07:54)
[2020-02-09] MEDS ORDERED: fentaNYL INJECTION 100 MCG/2 ML AMP ONE (08:49)
[2020-02-09] MEDS ORDERED: MIDAZOLAM 5 MG/5 ML (VERSED) VIAL ONE (08:49)
[2020-02-09] MEDS ORDERED: PATIENT MAY USE OWN MEDS, ALL PO SCH (09:30)
--- NOTE | 2020-02-09 09:30 | Cardiac Procedure Note-CS/ASA ---
Pre-Procedure Note Pre-Op Procedure Note H&P Reviewed The H&P was reviewed, patient examined and no changes noted. Date H&P Reviewed: Feb 09, 2020 Time H&P Reviewed: 09:30 Conscious Sedation Pre-Proced Time 09:30 ASA Score 3 For ASA 3 and 4: Consider anesthesia and medical clearance. Also, for patients with a history of failed moderate sedation consider anesthesia. Airway Lungs Heart ASA score ASA 1: a normal healthy patient ASA 2: a patient with a mild systemic disease (mid diabetes, controlled hypertension, obesity x ASA 3: a patient with a severe systemic disease that limits activity (angina, COPD, prior Myocardial infarction) ASA 4: a patient with an incapacitating disease that is a constant threat to life (CHF, renal failure) ASA 5: a moribund patient not expected to survive 24 hrs. (ruptured aneurysm) ASA 6: a declared brain- patient whose organs are being harvested. For emergent operations, add the letter E after the classification Mallampati Classification Grade 3 Sedation Plan Analgesia, Amnesia, Plan communicated to team members, Discussed options with patient/fam, Discussed risks with patient/fam The patient is an appropriate candidate to undergo the planned procedure, sedation, and anesthesia. The patient immediately re-assessed prior to indication. WINDY GREGG MD Feb 09, 2020 09:30
[2020-02-09] MEDS ORDERED: CLOP75TA69 PO (09:33)
--- NOTE | 2020-02-09 09:34 | Discharge Inst-Post CATH ---
Discharge Inst-CATH/EP Problems Reviewed?: Yes Post Cardiac Cath/EP D/C Inst Follow Up/Plan Appointment with Dr Mayberry's office in 2-4 weeks <b>CARDIAC CATH/EP PROCEDURE DISCHARGE INSTRUCTIONS</b> ACTIVITY * Go Home directly and rest. * Limit activity of the leg (or wrist if it was used) for 7 days including aerobics, swimming, jogging, bicycling, etc. * Restrict stair-climbing for 7 days if possible, if not, climb up with your non-cath leg, then bring together on the same step. * Avoid lifting, pushing, pulling or excessive movement of the affected extremity for 7 days. * Customary sexual activity may be resumed after 2 days-use caution not to use a position that strains or causes pain to the affected extremity. * No driving for 24 hours. * NO SMOKING. * Avoid straining for bowel movements for 7 days. * Gentle walking on level ground is allowed. * Returning to work will depend on the type of procedure and the results. Your doctor will discuss this with you. CALL YOUR DOCTOR FOR ANY OF THE FOLLOWING: *If bleeding from the puncture site occurs- Apply gentle pressure to site with clean cloth and call your doctor or EMS. * If a knot or lump forms under the skin, increases in size, or causes pain. * If bruising appears to be worsening or moving further down your leg instead of disappearing. * Temperature above 101 F. CARE OF YOUR GROIN INCISION; * Bruising or purple discoloration of the skin near the puncture site is common. * You may shower only, no bathtub bathing for 5 days. Be careful to avoid slipping as your leg may feel stiff. * If a closure device was used on your femoral artery, please see the attached guide regarding care of the device and your leg. * Leave dressing on FOR 24 hours. CARE OF YOUR WRIST INCISION; * Bruising or purple discoloration of the skin near the puncture site is common. * You may shower. * DO NOT submerge wrist. * Leave dressing on FOR 24 hours. WINDY MAYBERRY MD Feb 09, 2020 09:34
--- NOTE | 2020-02-09 09:39 | Cardiac Cath Report ---
Cardiac Cath Report Physician (s)/Piano Builder (s) Physician WINDY GREGG MD Pre-Procedure Diagnosis Pre-Procedure Diagnosis: Coronary artery disease Post-Procedure Note Procedure Start Date: Feb 09, 2020 Name of Procedure: Left heart catheterization Left ventriculogram Findings/Procedure Note PROCEDURE NOTE: 84 year old gentleman with history of diabetes mellitus, hypertension and hyperlipidemia has been having unstable angina, had an abnormal stress test. Scheduled for cardiac catheterization possible PTCA. After explaining the procedure to the patient, all pros and cons were explained, all questions were answered. The patient signed the consent and then he was placed on the cardiac catheterization laboratory. Groin was prepped SL fashion local anesthesia was used. Sheath placed in the right femoral artery. Jerrod right and left catheter were used to access the coronary system. JR catheter was used to access the left ventricular cavity. Left ventriculogram was done At the end of the procedure the sheath was removed. Closure device was used FINDINGS: Hemodynamics LV 139/20, end-diastolic pressure of 20 Aorta 140/64 mean of 93 ANATOMY: Left Main is free of obstructive disease Left Anterior Descending has severe stenosis at the midportion, the first diagonal artery has severe stenosis Left Circumflex has 60-70 percent stenosis distally Right Coronory Artery has severe stenosis at the right PDA distally, the artery is moderate in size LV Gram was done showing normal left ventricular size and systolic function estimated ejection fraction 60 percent CONCLUSION: 1. Severe multivessel disease with severe stenosis at the mid LAD, proximal moderate-sized diagonal, distal right PDA that is moderate in size and moderate stenosis at the distal circumflex artery 2. Normal left ventricular size with preserved systolic function estimated ejection fraction 60 percent DISCUSSION AND RECOMMENDATION: Patient has severe multivessel coronary artery disease, he is 84 years old with diabetes mellitus, I don't think he will tolerate bypass surgery, consideration for high risk intervention is made. I will start him on aspirin and Plavix in preparation for high risk intervention. Limiting contrast exposure at this time to 35 mL. Anesthesia Type: Conscious Sedation Estimated blood loss (mL): 25 ml Contrast Amount: 35 ml Total Radiation Dose: 800 mGy Post-Procedure Diagnosis Post-operative diagnosis: Unstable angina Coronary artery disease Hypertension Hyperlipidemia WINDY GREGG MD Feb 09, 2020 09:39
[2020-02-09] MEDS ORDERED: CLOPIDOGREL 300 MG (PLAVIX) TABLET PO ONE (09:44)
== END 2020-02-09 14:13 | disposition home or self-care (01) ==
LOC: CATH 06:49 → SDC 09:55 → CATH 14:13
PROVIDERS: ATTEND Internal Medicine Cardiovascular Disease
DX: I25.110 Atherosclerotic heart disease of native coronary artery with unstable angina pectoris (principal); E11.9 Type 2 diabetes mellitus without complications; I10 Essential (primary) hypertension; E78.2 Mixed hyperlipidemia; G47.33 Obstructive sleep apnea (adult) (pediatric); G47.10 Hypersomnia, unspecified; I65.29 Occlusion and stenosis of unspecified carotid artery; E66.9 Obesity, unspecified; Z68.32 Body mass index [BMI] 32.0-32.9, adult; Z79.82 Long term (current) use of aspirin; Z79.84 Long term (current) use of oral hypoglycemic drugs; Z79.899 Other long term (current) drug therapy; Z88.0 Allergy status to penicillin
CPT/HCPCS: 71045; 80053; 85027; 85610; 85730; 87081; 93458; C1760; C1894; 36415

== ENCOUNTER → 2020-11-06 | Outpatient (CLI) | payer MEDICARE, OTHER ==
[~2020-11-06] MED LIST changes: +CLOP75TA69 PO; +NF-METANX PO; +SITA100T12 PO
[2020-11-06 14:34] LABS: ALBUMIN 4.1 GM/DL (3.2-4.5); BILIRUBIN,TOTAL 0.3 MG/DL (0.1-1.0); CALCIUM 9.2 MG/DL (8.5-10.1); CREATININE SERUM 1.38 MG/DL (0.60-1.30); POTASSIUM 3.6 MMOL/L (3.6-5.0); TOTAL PROTEIN 6.9 GM/DL (6.4-8.2)
== END ==
LOC: CARD 13:45
PROVIDERS: ATTEND Family Medicine
DX: I49.9 Cardiac arrhythmia, unspecified (principal); I10 Essential (primary) hypertension
CPT/HCPCS: 36415; 80053; 84484; 93005

== ENCOUNTER → 2021-04-16 | Outpatient (CLI) | payer MEDICARE, OTHER ==
[~2021-04-16] MED LIST changes: +CATHETER FLUSH 10 ML SYR IV PRN; +REGADENOSON 0.4 MG/5 ML SYR (LEXISCAN) IV ONE
[2021-04-16 09:12] VITALS: BP 202/98
--- NOTE | 2021-04-16 11:18 | Cardiology Stress Test Report ---
Stress Test Report Date of Procedure/Referring: Date of Procedure: Apr 16, 2021 Amairani Wade Admitting Physician Karo Guerrero MD Indications: CP Baseline Heart Rate: 79 Baseline Blood Pressure: Blood Pressure Systolic: 202 Blood Pressure Diastolic: 98 Baseline Vitals Vital Signs Date Time Temp Pulse Resp B/P (MAP) Pulse Ox O2 Delivery O2 Flow Rate FiO2 04/16/21 09:12 83 18 202/98 (132) 98 Room Air Baseline EKG: Baseline EKG: NSR Summary After explaining the procedure to the patient, he signed a consent and then brought to the stress nuclear laboratory. Patient received 0.4 mg Lexiscan for stress test, ECG, heart rate and blood pressure were monitored continuously. Resting and stress dose of radio tracer were injected, imaging was acquired and reviewed in short axis, horizontal long axis and vertical long axis views. TID: 1.06 SSS: 4 SDS: 1 EF: 56 1. Patient tolerated Lexiscan well 2. Baseline hypertension persisted during test 3. No significant EKG changes with Lexiscan injection 4. Diaphragmatic attenuation with mild decrease uptake involving the basal to mid inferolateral wall with no significant reversibility, most probably secondary to diaphragmatic attenuation, no significant ischemia or infarction on SPECT images 5. Normal left ventricular size, EF 56% WINDY GREGG MD Apr 16, 2021 11:18
== END ==
LOC: CARD 08:00
PROVIDERS: ATTEND Physician Assistant
DX: R07.9 Chest pain, unspecified (principal)
CPT/HCPCS: 78452; 93017; A9502

== ENCOUNTER 2021-07-05 11:35 | Emergency (ER) | payer MEDICARE, OTHER ==
[~2021-07-05] VITALS: Ht 172 cm; Wt 100.0 kg
[~2021-07-05 11:35] MED LIST changes: -CATHETER FLUSH 10 ML SYR IV PRN; -REGADENOSON 0.4 MG/5 ML SYR (LEXISCAN) IV ONE
[2021-07-05] MEDS ORDERED: LIDOCAINE 1% INJ 20 ML 20 ML VIAL ONE (12:03)
[2021-07-05] MEDS ORDERED: CEPH500T PO (12:32)
--- NOTE | 2021-07-05 12:33 | ED Upper Extremity ---
General Chief Complaint: Laceration Stated Complaint: CUT LEFT HAND MIDDLE FINGER Nursing Triage Note: PT AMB TO FT1 PT HAS LAC FROM BAN SAW TO 3RD FINGER L HAND TIP OF FINGER BESIDE FINGER NAIL. PRESSURE APPLIED NO BLEEDING AT THIS X Source: patient Exam Limitations: no limitations History of Present Illness Date Seen by Provider: Jul 05, 2021 Time Seen by Provider: 12:30 Initial Comments To ER with laceration to the tip of the left pointer finger advance all at home. Tetanus is up-to-date. Onset: just prior to arrival Severity: mild Pain/Injury Location: left 2nd finger Modifying Factors: Improves With Cold Therapy; Worse With Movement Allergies and Home Medications Allergies Coded Allergies: Penicillins (Unverified Allergy, Unknown, HIVES, PT TOLERATES ROCEPHIN, 02/09/20) Patient Home Medication List Home Medication List Reviewed: Yes Ascorbic Acid (Vitamin C) 500 Mg Capsule.sa, 500 MG PO DAILY, (Reported) Entered as Reported by: FERNANDO JONES on 02/27/15 0927 Aspirin (Aspir 81) 81 Mg Tablet.dr, 81 MG PO DAILY, (Reported) Entered as Reported by: NEETU SANDS on 12/11/16 0828 Atenolol/Chlorthalidone (Atenolol-Chlorthalidone 50-25) 1 Each Tablet, 1 EACH PO DAILY, (Reported) Entered as Reported by: JENNIFER ESPINOZA on 02/09/20 0754 Beta-Carotene (Beta Carotene) 10,000 Unit Capsule, 10,000 UNIT PO DAILY, (Reported) Entered as Reported by: FERNANDO JONES on 09/02/16 1205 Calcium Carbonate/Vitamin D3 (Calcium 500 + D Tablet) 1 Each Tablet, 1 TAB PO BID, (Reported) Entered as Reported by: FERNANDO JONES on 09/02/16 1205 Cholecalciferol (Vitamin D3) (Vitamin D-3) 2,000 Unit Capsule, 2,000 UNIT PO DAILY, (Reported) Entered as Reported by: FERNANDO JONES on 02/27/15 0927 Clopidogrel Bisulfate (Plavix) 75 Mg Tablet, 75 MG PO DAILY Prescribed by: WINDY GREGG on 02/09/20 0933 Copper Gluconate (Copper) 2 Mg Tablet, 2 MG PO DAILY, (Reported) Entered as Reported by: FERNANDO JONES on 02/27/15 0927 Diltiazem HCl (Taztia Xt) 360 Mg Capsule.er, 360 MG PO DAILY, (Reported) Entered as Reported by: PORFIRIO RUSSELL on 09/16/16 1011 Ferrous Sulfate (Ferrous Sulfate) 325 Mg Tablet, 325 MG PO DAILY, (Reported) Entered as Reported by: PORFIRIO RUSSELL on 09/16/16 1011 Flaxseed Oil (Flax Seed Oil) 1,000 Mg Capsule, 1,000 MG PO BID, (Reported) Entered as Reported by: FERNANDO JONES on 09/02/16 1205 Garlic (Garlic) 200 Mg Tablet, 200 MG PO BID, (Reported) Entered as Reported by: FERNANDO JONES on 09/02/16 1205 Glimepiride (Glimepiride) 2 Mg Tablet, 2 MG PO BID, (Reported) Entered as Reported by: PORFIRIO RUSSELL on 09/16/16 1011 Gluc 2Kcl/Chondr/Haider Hy/Hy AC (Glucosamine & Chondroitin Cap) 1 Each Capsule, 1 CAP PO BID, (Reported) Entered as Reported by: FERNANDO JONES on 09/02/16 1205 Lactobacillus Acidophilus (Acidophilus) 1 Each Capsule, 1 CAP PO BID, (Reported) Entered as Reported by: FERNANDO JONES on 09/02/16 1205 Lmfol Ca/Acetyl/Mb12/Algal Oil (Cerefolin Nac Caplet) 1 Each Tablet, 1 EACH PO DAILY, (Reported) Entered as Reported by: JENNIFER ESPINOZA on 02/09/20 0754 Magnesium Oxide (Magnesium) 400 Mg Tablet, 400 MG PO DAILY, (Reported) Entered as Reported by: FERNANDO JONES on 09/02/16 1205 Melatonin/Pyridoxine (Melatonin 5 mg Tablet) 1 Each Tablet, 5 MG PO HS, (Reported) Entered as Reported by: FERNANDO JONES on 09/02/16 1208 Milk Thistle Seed Extract (Milk Thistle) 200 Mg Capsule, 200 MG PO DAILY, (Reported) Entered as Reported by: FERNANDO JONES on 09/02/16 1205 Omeprazole/Sodium Bicarbonate (Zegerid 20 mg Capsule) 1 Each Capsule, 1 EACH PO DAILY, (Reported) Entered as Reported by: DORINA LILLY on 12/06/16 1022 Rutin (Rutin) 500 Mg Tablet, 500 MG PO HS, (Reported) Entered as Reported by: FERNANDO JONES on 09/02/16 1208 Sitagliptin Phosphate (Januvia) 100 Mg Tablet, 50 MG PO DAILY, (Reported) Entered as Reported by: JENNIFER ESPINOZA on 02/09/20 0754 Zinc Gluconate-Zinc Picolinate (Zinc) 30 Mg Capsule, 30 MG PO DAILY, (Reported) Entered as Reported by: FERNANDO JONES on 02/27/15 0927 [oak bark] , 1 TAB PO HS, (Reported) Entered as Reported by: FERNANDO JONES on 09/02/16 1208 Review of Systems Constitutional: see HPI EENTM: see HPI Respiratory: no symptoms reported Cardiovascular: no symptoms reported Genitourinary: no symptoms reported Musculoskeletal: no symptoms reported Skin: see HPI Psychiatric/Neurological: No Symptoms Reported Past Cxzryvr-Xlbbdj-Rzrulm Hx Patient Social History Tobacco Use?: No Substance use?: No Alcohol Use?: No Pt feels they are or have been: No Immunizations Up To Date Tetanus Booster (TDap): Unknown Second COVID19 Vaccination Antwan: MAR, 2021 COVID19 Vaccine Kiln Stacker: REGULO Seasonal Allergies Seasonal Allergies: No Past Medical History Surgeries: Yes (left bunionectomy) Adenoidectomy, Tonsillectomy, Vasectomy Respiratory: Yes Sleep Apnea Currently Using CPAP: No (NOT USING CPAP) Cardiac: Yes High Cholesterol, Hypertension Neurological: No Reproductive Disorders: No Sexually Transmitted Disease: No HIV/AIDS: No Genitourinary: Yes (TURP on 09/04/16) Prostate Problems Gastrointestinal: Yes Gastroesophageal Reflux, Chronic Diarrhea Musculoskeletal: Yes (RIGHT ARM AND ANKLE FX, ) Fractures Endocrine: Yes Diabetes, Non-Insulin dep HEENT: No Loss of Vision: Bilateral Hearing Impairment: Bilateral Hearing Aide Cancer: No Psychosocial: No Integumentary: No Blood Disorders: No Adverse Reaction/Blood Tranf: No Physical Exam Vital Signs Vital Signs - First Documented 07/05/21 11:45 Temp 36.0 Pulse 67 Resp 18 B/P (MAP) 140/64 (89) Pulse Ox 95 Capillary Refill : Less Than 3 Seconds Height, Weight, BMI Height: 5'8.00" Weight: 237lbs. 4.0oz. 107.060072cr; 33.00 BMI Method:Stated General Appearance: WD/WN, no apparent distress HEENT: PERRL/EOMI, normal ENT inspection Neck: non-tender, full range of motion Respiratory: no respiratory distress Shoulder: normal inspection, non-tender Elbow/Forearm: normal inspection, non-tender Wrist: Yes normal inspection, Yes non-tender Hand: Left, laceration (There is a minimally bleeding laceration to the ulnar side of the left pointer finger but does not involve the nail.) Neurologic/Psychiatric: alert, normal mood/affect, oriented x 3 Skin: normal color, warm/dry Progress/Results/Core Measures Results/Orders Vital Signs/I&O 07/05/21 11:45 Temp 36.0 Pulse 67 Resp 18 B/P (MAP) 140/64 (89) Pulse Ox 95 Blood Pressure Mean: 89 Departure Communication (Admissions) This was anesthetized with 1 mL of 1% lidocaine without epinephrine then scrubbed with chlorhexidine/saline solution and irrigated with the same then closed with 6 simple erupted sutures size 5-0 Prolene. Impression Primary Impression: Finger laceration Disposition: 01 HOME, SELF-CARE Condition: Stable Departure-Patient Inst. Decision time for Depature: 12:31 Referrals: SAVANA SANTIAGO MD (PCP/Family) Primary Care Physician Patient Instructions: Laceration Repair With Stitches ED Add. Discharge Instructions: 1. Return to ER in about 7 to 10 days to have the sutures removed. Antibiotic as directed. Keep this covered with a Band-Aid. He can take the Band-Aid off for showering and let water run over it but do not soak this in water. All discharge instructions reviewed with patient and/or family. Voiced understanding. Scripts Cephalexin (Cephalexin) 500 Mg Tablet 500 MG PO TID, #9 TAB Prov: BERNARDO VALVERDE APRN 07/05/21 BERNARDO VALVERDE APRN Jul 05, 2021 12:33
[2021-07-05] MEDS ORDERED: TETANUS,DIPTH,PERTUSS P/F (BOOSTRIX) 0.5 ML VIAL IM ONE (12:45)
[2021-07-05 12:50] VITALS: BP 140/64
== END 2021-07-05 12:50 | disposition home or self-care (01) ==
LOC: EDUNIT# 11:35 → ER 11:38
DX: S61.211A Laceration without foreign body of left index finger without damage to nail, initial encounter (principal); G47.30 Sleep apnea, unspecified; I10 Essential (primary) hypertension; K21.9 Gastro-esophageal reflux disease without esophagitis; E11.9 Type 2 diabetes mellitus without complications; Z23 Encounter for immunization; Z79.82 Long term (current) use of aspirin; Z79.01 Long term (current) use of anticoagulants; Z79.899 Other long term (current) drug therapy; W31.2XXA Contact with powered woodworking and forming machines, initial encounter; Y92.009 Unspecified place in unspecified non-institutional (private) residence as the place of occurrence of the external cause
CPT/HCPCS: 12041; 90715

== ENCOUNTER 2021-07-16 13:20 | Emergency (ER) | payer MEDICARE, OTHER ==
[~2021-07-16] VITALS: Ht 172.7 cm; Wt 98.0 kg
[~2021-07-16 13:20] MED LIST changes: +CEPH500T PO
[2021-07-16 13:34] VITALS: BP 161/78
== END 2021-07-16 13:49 | disposition home or self-care (01) ==
LOC: EDUNIT# 13:20 → ER 13:22
DX: Z48.02 Encounter for removal of sutures (principal)

== ENCOUNTER → 2022-05-03 | Outpatient (CLI) | payer MEDICARE, OTHER ==
--- NOTE | 2022-05-03 13:54 | Diagnostic Imaging Report ---
INDICATION: Fall. Now with left-sided rib pain COMPARISON: None FINDINGS: Three views of the left ribs were obtained. There is no fracture, dislocation, or other acute bony abnormality identified. Visualized portions of the left lung are clear. The surrounding soft tissues appear unremarkable. No radiopaque foreign bodies are seen. IMPRESSION: No healing or displaced left-sided rib fractures. Dictated by: Dictated on workstation # [id number]
== END ==
LOC: RAD 09:05
PROVIDERS: ATTEND Nurse Practitioner Family
DX: R07.81 Pleurodynia (principal); Z91.81 History of falling
CPT/HCPCS: 71100

== ENCOUNTER → 2022-05-14 | Outpatient (CLI) | payer MEDICARE ==
--- NOTE | 2022-05-14 17:33 | Diagnostic Imaging Report ---
EXAMINATION: Left knee radiographs, 3 views. COMPARISON: None. HISTORY: 86-year-old male, left knee. Recent fall. FINDINGS: There is no identified acute fracture. The joint spaces appear well preserved. There is no identified knee joint effusion. There are vascular related calcifications. IMPRESSION: 1. No identified acute bony abnormality of the left knee. Dictated by: Dictated on workstation # [id number]
--- NOTE | 2022-05-14 17:34 | Diagnostic Imaging Report ---
EXAMINATION: The left tibia and fibula, 2 views, 4 images. COMPARISON: None. HISTORY: 86-year-old male, fall. Left tibia and fibula pain. FINDINGS: There is no identified acute fracture. There is no cortical or aggressive bone destruction. There is no radiopaque foreign body. There is a normal variant os trigonum. There are vascular calcifications noted. IMPRESSION: 1. No identified acute bony abnormality of the left tibia or fibula. Dictated by: Dictated on workstation # [id number]
== END ==
LOC: RAD 11:19
PROVIDERS: ATTEND Nurse Practitioner Family
DX: M25.562 Pain in left knee (principal); M79.662 Pain in left lower leg; Z91.81 History of falling
CPT/HCPCS: 73562; 73590

== ENCOUNTER → 2022-06-05 | Outpatient (CLI) | payer MEDICARE ==
[~2022-06-05] MED LIST changes: +DAPA5TAB PO; +DOXA4TAB2 PO; +GLIM1TAB4 PO; +HYDR-3922 PO; +LOSA100T57 PO; +OMEG100032 PO; +PANT40TA52 PO; +POTA99CA PO; +VITA-203 PO
== END ==
LOC: CARD 09:53
PROVIDERS: ATTEND Physician Assistant
DX: I11.9 Hypertensive heart disease without heart failure (principal)
CPT/HCPCS: 93306

== ENCOUNTER → 2022-06-07 | Outpatient (CLI) | payer MEDICARE ==
[~2022-06-07] VITALS: Ht 172.7 cm; Wt 103.9 kg
== END | disposition home or self-care (01) ==
LOC: PREOP 09:39
PROVIDERS: ATTEND Surgery
DX: Z01.818 Encounter for other preprocedural examination (principal)

== ENCOUNTER 2022-06-12 09:38 | Day surgery (SDC) | payer MEDICARE ==
[~2022-06-12] VITALS: Ht 172 cm; Wt 103.9 kg
[2022-06-12] MEDS ORDERED: LACTATED RINGERS 1,000 ML IV STA (09:42)
[2022-06-12] MEDS ORDERED: HURRICAINE EXT TUBE (BENZOCAINE) XX PRN (09:45)
[2022-06-12] MEDS ORDERED: LIDOCAINE JELLY 2% 6 ML SYRINGE MM PRN (09:45)
[2022-06-12 10:10] VITALS: BP 188/92
--- NOTE | 2022-06-12 10:59 | Progress Note-Pre Operative ---
Pre-Operative Progress Note Date of Available H&P: Jun 12, 2022 Date H&P Reviewed: Jun 12, 2022 Time H&P Reviewed: 10:00 History & Physical: No changes noted Pre-Operative Diagnosis: GERD, dysphagia STEVE MAZA MD Jun 12, 2022 10:59
[2022-06-12] MEDS ORDERED: ONDANSETRON 4 MG/2 ML (SDV) Z0FRAN IVP PRN (11:00)
[2022-06-12] MEDS ORDERED: ONDANSETRON 4 MG (ZOFRAN) ORAL DISSOLVE TAB PO PRN (11:00)
--- NOTE | 2022-06-12 11:00 | Discharge Inst-Surgical ---
D/C Lap Instructions-SHAUNNA Follow Up Activity as tolerated High Fiber Diet 25g or more per day Avoid Alcohol, Caffeine, Spicy [place] and Acid foods. Drink 64 fluid oz or more of fluids per day. Symptoms to Report: Fever over 101 degree F, Nausea/Vomiting If any problems/questions: Contact your physician or go to Emergency Room STEVE MAZA MD Jun 12, 2022 11:00
[2022-06-12] MEDS ORDERED: proPOfol 200 MG/20 ML (DIPRIVAN) VIAL IV ONE (12:03)
[2022-06-12 12:34] VITALS: BP 107/54
--- NOTE | 2022-06-12 12:38 | Progress Note-Post Operative ---
Post-Operative Progess Note Surgeon (s)/Commercial Real Estate Assistant (s) Surgeon TSEVE MAZA MD Commercial Real Estate Assistant: none Pre-Operative Diagnosis GERD, dysphagia Post-Operative Diagnosis reflux esophagitis(grade B-C), mild dist esoph stricture, smal HH(2.5cm), moderate gastritis. Procedure & Operative Findings Date of Procedure 06/12/22 Procedure Performed/Findings EGD with bx and balloon dilatation. Anesthesia Type mac Estimated Blood Loss Estimated blood loss (mL): minimal Specimens/Packing Specimens Removed ge jxn, antrum STEVE MAZA MD Jun 12, 2022 12:37
[2022-06-12 12:40] VITALS: BP 115/56
[2022-06-12 13:10] VITALS: BP 145/82
[2022-06-12 13:25] VITALS: BP 145/82
--- NOTE | 2022-06-12 14:51 | Anesthesia-General Post-Op ---
MAC Patient Condition Mental Status/LOC: Same as Preop Cardiovascular: Satisfactory Nausea/Vomiting: Absent Respiratory: Satisfactory Pain: Controlled Complications: Absent Post Op Complications Complications None Follow Up Care/Instructions Patient Instructions None needed. Anesthesiology Discharge Order Discharge Order Patient is doing well, no complaints, stable vital signs, no apparent adverse anesthesia problems. No complications reported per nursing. DOC CHAIDEZ CRNA Jun 12, 2022 14:51
--- NOTE | 2022-06-12 20:21 | OPERATIVE REPORT ---
DATE OF SERVICE: 06/12/2022 ATTENDING PRIMARY CARE PHYSICIAN: Dr. Karo Guerrero. PREOPERATIVE DIAGNOSES: Gastroesophageal reflux disease and dysphagia. POSTOPERATIVE DIAGNOSES: Reflux esophagitis between [place] grade B and C with a mild distal esophageal stricture, small hiatal hernia 2.5 cm in size, moderate gastritis. No distal obstructions. PROCEDURE: EGD with biopsy and balloon dilatation. SURGEON: Steve Maza MD. ANESTHESIA: Monitored anesthesia care. ESTIMATED BLOOD LOSS: Minimal. FINDINGS: Reflux esophagitis between [place] grade B and C with a mild distal esophageal stricture, small hiatal hernia 2.5 cm in size, moderate gastritis. No distal obstructions. DISPOSITION: The patient tolerated the procedure well. INDICATIONS: The patient is an 86-year-old male who we have seen before in the past. He reports in the past 2 months, he has had some epigastric crampy pain; however, also has developed dysphagia. He reports after some types of food boluses, he would feel the food bolus getting stuck substernally and then would also feel worsening pressure in the substernal region and this would eventually reduce on its own. He does not report any regurgitation as well as no hematemesis, no coffee ground emesis. DESCRIPTION OF PROCEDURE: The patient was brought to the endoscopy suite, laid in the left lateral decubitus position. After adequate IV pain and sedative medications and monitored anesthesia care, the mouthpiece was applied. The endoscope was then placed in the mouth, visualizing the pharynx and hypopharyngeal region. Vocal cords, epiglottis and vallecula identified and appeared to be normal. The endoscope was then gently intubated into the esophageal opening and esophagus insufflated. The endoscope was then advanced to the first, second and third portion of esophagus at the level of the GE junction, reflux esophagitis between [place] grade B and C identified with a mild distal esophageal stricture. A biopsy was taken with forceps with visualization of good hemostasis. The endoscope was then advanced in the stomach and endoscope retroflexed, visualizing a small hiatal hernia approximately 2.5 cm in size. There was a moderate severity gastritis. No formal ulcerations, polyps, or any neoplasms. A biopsy was taken of the antrum to rule out H. pylori with visualization of good hemostasis. The endoscope was then advanced to the pylorus and first and second portion of the duodenum, which appeared normal with no distal obstructions. The balloon was then placed in the stomach and pulled back to the area of the stricture. We then proceeded in a stepwise graded fashion from 2, 4, then eventually 6 atmospheres of pressure or 20 mm in luminal diameter with moderate resistance and left this in place for approximately 60 seconds. The balloon was then desufflated and removed with visualization of good hemostasis as well as no mucosal tears. The endoscope was then slowly withdrawn while taking a second look and suctioning of residual air with no additional findings. The patient tolerated the procedure well. We will recommend the necessary lifestyle and dietary accommodation including small and more frequent meals, avoiding to eating at night as well as head elevation while lying supine and avoidance of foods that do cause dysphagia. We will also recommend avoidance of caffeinated beverages, spicy, greasy and acidic foods and continuation of his PPI acid sheet catcher. If he does have recurrent episodes of dysphagia, we will have him follow up for repeat dilatation. Job ID: [id number] DocumentID: [id number] Dictated Date: 06/12/2022 12:34:19 Marketing/Sales Person Date: 06/12/2022 20:20:56 Dictated By: STEVE MAZA MD
== END 2022-06-12 13:25 | disposition home or self-care (01) ==
LOC: ENDO 09:38
PROVIDERS: ATTEND Surgery
DX: K21.00 Gastro-esophageal reflux disease with esophagitis, without bleeding (principal); K22.2 Esophageal obstruction; K44.9 Diaphragmatic hernia without obstruction or gangrene; K29.70 Gastritis, unspecified, without bleeding; K31.9 Disease of stomach and duodenum, unspecified; E66.9 Obesity, unspecified; Z68.35 Body mass index [BMI] 35.0-35.9, adult; Z95.5 Presence of coronary angioplasty implant and graft; E11.9 Type 2 diabetes mellitus without complications; Z79.84 Long term (current) use of oral hypoglycemic drugs

== ENCOUNTER 2022-10-31 16:57 | Emergency (ER) | payer MEDICARE ==
[~2022-10-31] VITALS: Ht 172.7 cm; Wt 96.0 kg
[~2022-10-31 16:57] MED LIST changes: +CLOP-31 PO; -CLOP75TA69 PO
--- NOTE | 2022-10-31 17:15 | ED Fall/Injury ---
General Chief Complaint: Trauma-Non Activation Stated Complaint: FALL/RIGHT RIB PAIN Source: patient Exam Limitations: no limitations History of Present Illness Date Seen by Provider: Oct 31, 2022 Time Seen by Provider: 17:12 Initial Comments Patient is a 87-year-old male who presents ED with right-sided rib pain. Patient states around 315 patient fell while going out to get the mail. States he slipped on some grass that was wet and tripped over his feet landing on the ground hitting the right lateral ribs. He states his elbow hit the ground but was wearing a thick coat. Denied loss of consciousness, head injury, middle lower back pain, abdominal pain, vomiting, shortness of breath. Pain is worse with any type of movement or taking a deep breath. Denies fever, chills, pelvic pain, distal numbness and tingling, shortness of breath. Patient took ibuprofen a few hours before arrival. Allergies and Home Medications Allergies Coded Allergies: Penicillins (Unverified Allergy, Unknown, HIVES, PT TOLERATES ROCEPHIN, 02/09/20) Patient Home Medication List Home Medication List Reviewed: Yes Ascorbic Acid (Vitamin C) 500 Mg Capsule.sa, 500 MG PO DAILY, (Reported) Entered as Reported by: FERNANDO JONES on 02/27/15 0927 Aspirin (Aspir 81) 81 Mg Tablet.dr, 81 MG PO DAILY, (Reported) Entered as Reported by: NEETU SANDS on 12/11/16 0828 Atenolol/Chlorthalidone (Atenolol-Chlorthalidone 50-25) 1 Each Tablet, 1 EACH PO DAILY, (Reported) Entered as Reported by: JENNIFER ESPINOZA on 02/09/20 0754 Atorvastatin Calcium (Atorvastatin Calcium) 20 Mg Tablet, 20 MG PO DAILY, (Reported) Entered as Reported by: SID HUA on 06/07/22 1259 Calcium Carbonate/Vitamin D3 (Calcium 500 + D Tablet) 1 Each Tablet, 1 TAB PO BID, (Reported) Entered as Reported by: FERNANDO JONES on 09/02/16 1205 Clopidogrel Bisulfate (Plavix) 75 Mg Tablet, 75 MG PO DAILY Prescribed by: WINDY GREGG on 02/09/20 0933 Copper Gluconate (Copper) 2 Mg Tablet, 2 MG PO DAILY, (Reported) Entered as Reported by: FERNANDO JONES on 02/27/15 0927 Dapagliflozin Propanediol (Farxiga) 5 Mg Tablet, 5 MG PO DAILY, (Reported) Entered as Reported by: SID HUA on 06/07/22 1259 Diltiazem HCl (Taztia Xt) 360 Mg Capsule.er, 360 MG PO DAILY, (Reported) Entered as Reported by: PORFIRIO RUSSELL on 09/16/16 1011 Doxazosin Mesylate (Doxazosin Mesylate) 4 Mg Tablet, 4 MG PO BID, (Reported) Entered as Reported by: SID HUA on 06/07/22 1259 Ferrous Sulfate (Ferrous Sulfate) 325 Mg Tablet, 325 MG PO DAILY, (Reported) Entered as Reported by: PORFIRIO RUSSELL on 09/16/16 1011 Garlic (Garlic) 200 Mg Tablet, 200 MG PO BID, (Reported) Entered as Reported by: FERNANDO JONES on 09/02/16 1205 Ginkgo Biloba Extract (Ginkgo Biloba) 120 Mg Capsule, 120 MG PO DAILY, ( Reported) Entered as Reported by: SID HUA on 06/07/22 1259 Glimepiride (Glimepiride) 1 Mg Tablet, 1 MG PO DAILY, (Reported) Entered as Reported by: SID HUA on 06/07/22 1259 Gluc 2Kcl/Chondr/Haider Hy/Hy AC (Glucosamine & Chondroitin Cap) 1 Each Capsule, 1 CAP PO BID, (Reported) Entered as Reported by: FERNANDO JONES on 09/02/16 1205 Hydralazine HCl (Hydralazine HCl) 10 Mg Tablet, 10 MG PO DAILY, (Reported) Entered as Reported by: SID HUA on 06/07/22 1259 Lmfol Ca/Acetyl/Mb12/Algal Oil (Cerefolin Nac Caplet) 1 Each Tablet, 1 EACH PO DAILY, (Reported) Entered as Reported by: JENNIFER ESPINOZA on 02/09/20 0754 Losartan Potassium (Losartan Potassium) 100 Mg Tablet, 100 MG PO DAILY, (Reported) Entered as Reported by: SID HUA on 06/07/22 1259 Magnesium Oxide (Magnesium) 400 Mg Tablet, 400 MG PO DAILY, (Reported) Entered as Reported by: FERNANDO JONES on 09/02/16 1205 Metformin HCl (Metformin HCl ER) 750 Mg Tab.er.24h, 750 MG PO BID, (Reported) Entered as Reported by: SID HUA on 06/07/22 1259 Milk Thistle Seed Extract (Milk Thistle) 200 Mg Capsule, 200 MG PO DAILY, (Reported) Entered as Reported by: FERNANDO JONES on 09/02/16 1205 [place]-3/Dha/Epa/Fish Oil (Fish Oil 1,000 mg Softgel) 1,000 Mg (120 Mg-180 Mg) Capsule, PO DAILY, (Reported) Entered as Reported by: SID HUA on 06/07/22 1259 Pantoprazole Sodium (Pantoprazole Sodium) 40 Mg Tablet.dr, 40 MG PO DAILY, (Reported) Entered as Reported by: SID HUA on 06/07/22 1259 Potassium Citrate (Potassium) 99 Mg Capsule, 99 MG PO DAILY, (Reported) Entered as Reported by: SID HUA on 06/07/22 1259 Rutin (Rutin) 500 Mg Tablet, 500 MG PO HS, (Reported) Entered as Reported by: FERNANDO JONES on 09/02/16 1208 Sitagliptin Phosphate (Januvia) 100 Mg Tablet, 50 MG PO DAILY, (Reported) Entered as Reported by: JENNIFER ESPINOZA on 02/09/20 0754 Vitamin A Palmitate (Vitamin A) 10,000 Unit Capsule, 10,000 UNIT PO DAILY, (Reported) Entered as Reported by: SID HUA on 06/07/22 1259 Zinc Gluconate-Zinc Picolinate (Zinc) 30 Mg Capsule, 30 MG PO DAILY, (Reported) Entered as Reported by: FERNANDO JONES on 02/27/15 0927 Review of Systems Review of Systems Constitutional: No chills, No diaphoresis, No malaise, No weakness Eyes: Denies Drainage, Denies Decreased Acuity Ears, Nose, Mouth, Throat: denies ear pain, denies ear discharge, denies mouth pain, denies throat pain, denies throat swelling Respiratory: No cough, No dyspnea on exertion; other (rib pain) Cardiovascular: No chest pain, No edema Gastrointestinal: No abdominal pain, No diarrhea, No nausea, No vomiting Genitourinary: No decreased output, No discharge Musculoskeletal: No back pain, No joint pain Skin: No change in color, No change in hair/nails All Other Systems Reviewed Negative Unless Noted: Yes Past Kavcwqj-Okilbx-Celwle Hx Immunizations Up To Date Tetanus Booster (TDap): Unknown First/Initial COVID19 Vaccinat: MAR, 2021 Second COVID19 Vaccination Antwan: MAR, 2021 Third COVID19 Vaccination Date: MAR, 2021 Seasonal Allergies Seasonal Allergies: No Past Medical History Surgeries: Yes (LEFT BUNIONECTOMY, TURP, 5 STENTS IN HEART) Adenoidectomy, Tonsillectomy, Vasectomy Respiratory: Yes Sleep Apnea Currently Using CPAP: No (NOT USING CPAP) Cardiac: Yes High Cholesterol, Hypertension Neurological: No Reproductive Disorders: No Sexually Transmitted Disease: No HIV/AIDS: No Genitourinary: Yes (TURP on 09/04/16) Prostate Problems Gastrointestinal: Yes Gastroesophageal Reflux, Chronic Diarrhea Musculoskeletal: Yes (RIGHT ARM AND ANKLE FX) Fractures Endocrine: Yes Diabetes, Non-Insulin dep HEENT: No 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 4.0oz. [id number]; 35.12 BMI Method:Actual General Appearance: WD/WN, no apparent distress HEENT: PERRL/EOMI, normal ENT inspection, TMs normal, pharynx normal Neck: non-tender, full range of motion, supple, normal inspection Cardiovascular: regular rate, rhythm, no edema, no gallop, no JVD Respiratory: lungs clear, normal breath sounds, no respiratory distress, no accessory muscle use, other (Right-sided lower rib tenderness below the right nipple ) Gastrointestinal: normal bowel sounds, non tender, soft, no organomegaly Back: normal inspection, no CVA tenderness, no vertebral tenderness Extremities: normal range of motion, non-tender, normal inspection, no pedal edema, no calf tenderness 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 Hit grass while falling down getting his mail. Landed on the right side of his ribs and right elbow. Patient has no right elbow tenderness with normal active range of motion. tenderness to the nipple line right lower ribs. He has no abdominal tenderness. Took ibuprofen before arrival refusing anything for pain. No significant swelling or bruising. Pain with rotational movement or deep inspiration. Due to multiple area of tenderness, age of patient and lack of missed fractures on x-ray CT scan of the chest was ordered. Differential diagnosis of rib fracture, pneumothorax, chest wall contusion. CT scan of the chest and upper abdomen did not show any acute abnormality such as rib fracture. Patient refusing thing for pain. Discussed all results with patient. Recommend ice to help with swelling. Continue with ibuprofen per his request. Follow-up with your PCP in 2 to 3 days for reevaluation. Patient has current shortness of breath. Patient without any right upper quadrant or epigastric tenderness suggesting intra-abdominal injury. Return precaution were discussed with patient Impression Primary Impression: Rib pain Disposition: HOME, SELF-CARE Condition: Stable Departure-Patient Inst. Decision time for Depature: 18:10 Referrals: SAVANA SANTIAGO MD (PCP/Family) Primary Care Physician Patient Instructions: Muscle and Bone Pain (DC) Add. Discharge Instructions: If any worsening pain, developing abdominal pain to return back to ED. Continue with your ibuprofen at home. Ice to help with swelling. All discharge instructions reviewed with patient and/or family. Voiced understanding. JORY OLSEN Oct 31, 2022 17:15
--- NOTE | 2022-10-31 17:58 | Diagnostic Imaging Report ---
CT CHEST WO TECHNIQUE: Multiple contiguous axial images were obtained through the chest without the use of intravenous contrast. All CT scans use one or more of the following dose optimizing techniques: Automated exposure control, MA and/or KvP adjustment based on a patient size and exam type, or iterative reconstruction. INDICATION: Right-sided rib pain after fall. COMPARISON: CT chest of 07/22/2018. FINDINGS: Lungs and airway: No abnormality in the trachea. There is no pneumonia or edema. No pulmonary contusion or laceration. Pleura: No pleural effusion or pneumothorax. Heart and mediastinum: No supraclavicular or axillary lymphadenopathy. No mediastinal or hilar lymphadenopathy. 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 Heart is upper limits of normal in size with severe coronary artery calcifications. Normal-caliber thoracic aorta. No features of mediastinal hemorrhage. Upper abdomen: No concerning abnormality in the upper abdomen. Musculoskeletal: No acute rib fracture on either side. Clavicles are intact. No sternal fracture. IMPRESSION: 1. No acute rib fracture. 2. No acute intrathoracic process. Dictated by: Dictated on workstation # [id number]
[2022-10-31 18:18] VITALS: BP 178/98
== END 2022-10-31 18:18 | disposition home or self-care (01) ==
LOC: EDUNIT# 16:57 → ER 16:59
DX: R07.81 Pleurodynia (principal); W01.10XA Fall on same level from slipping, tripping and stumbling with subsequent striking against unspecified object, initial encounter
CPT/HCPCS: 71250